=== PATIENT | female | born 1980 | race Caucasian/White ===

== ENCOUNTER 2023-02-09 12:59 | Outpatient (OUT) | payer OTHER, SELFPAY ==
--- NOTE | 2023-02-09 13:09 | US_ITS ---
[place] [id number] Patient Name: BRYON BROCK MRN: [id number] date: 1980 Sex: F Assigned Patient Location: US Current Patient Location: US Accession/Order Number: [id number] Exam Date: 02/09/2023 13:30 Report Date: 02/09/2023 15:14 At the request of: MAREN ORTZI Procedure: US venous doppler LE LT EXAMINATION: US venous doppler LE LT HISTORY: Left leg pain M79.605 COMPARISON: No relevant comparison available. TECHNIQUE: Grayscale, color and Doppler FINDINGS: Region: Left leg Thrombus: None Flow: Normal Augmentation: Normal Compressibility: Normal IMPRESSION: No deep or superficial vein thrombus identified in the left leg *Exam performed in accordance with [facility] practice guidelines- Peripheral venous ultrasound, November 13, 2009. Electronically authenticated by: CODY MCNEIL Date: 02/09/2023 15:14
== END 2023-02-09 13:00 | disposition home or self-care (01) ==
PROVIDERS: PCP Family Medicine; Visit Provider Family Medicine
DX: M79.605 Pain in left leg (principal)
CPT/HCPCS: 93971

== ENCOUNTER 2023-02-28 12:41 | Outpatient (OUT) | payer OTHER, SELFPAY ==
--- NOTE | 2023-02-28 | VEIN_ITS ---
Patient: BRYON BROCK Exam Date: 02/28/2023 : 1980 Gender:F Ordering : DR Maulik James . Admission #: [id number] Family : Order #: [id number] CLICK HERE TO VIEW EXAM RADIOLOGY REPORT PROCEDURE: VC EXT VENOUS REFLUX MATILDA LMTD COMPARISON: None. INDICATIONS: Pain due to varicose veins of bilateral legs I83.813 TECHNIQUE: Duplex imaging of the lower extremity to assess the deep and superficial venous system for the presence of deep or superficial venous incompetence and to document the location and severity of disease. The study includes evaluation of the great saphenous vein (GSV), anterior accessory saphenous vein (AASV) and small saphenous vein (SSV). Patient scanned in reverse Trendelenburg and standing. FINDINGS: RIGHT LOWER EXTREMITY: Saphenofemoral Junction Reflux: Yes 6.9mm 1.8 sec GSV: Diam (mm) Reflux/ Time (sec) Proximal Thigh 6.1 Yes 1.9 Mid Thigh 3.2 Yes 1.5 Distal Thigh 3.7 Yes 0.6 Prox Calf 3.9 Yes 0.9 Mid Calf 3.2 Yes 0.4 Saphenopopliteal Junction Reflux: 3.6mm Yes 1.4 SSV: Proximal Calf 4.5 Yes 0.3 Mid Calf 3.0 Yes 3.8 AASV: Proximal Thigh 5.9 Yes 1.9 Mid Thigh 4.0 Yes 0.6 Distal Thigh Thrombi: Partial thrombus in receptionist doctor's office distal medial lower leg. Compressibility: Partial compression of distal lower leg receptionist doctor's office. Flow: Severe deep venous reflux in popliteal vein. Preforator: Distal medial lower leg 9.5 mm with 0.7s reflux. Tech Note: SSV becomes tortuous mid calf. Incompetent varicose vein mid medial lower leg measures 5.2 mm with 1.6s reflux. Distal medial thigh varicose vein measures 4.0 mm with 0.5s reflux. Varicosity distal anterior thigh measures 3.3 mm with 0.5s reflux. LEFT LOWER EXTREMITY: Saphenofemoral Junction Reflux: Yes 9.1 mm 1.3 sec GSV: Diam (mm) Reflux/Time (sec) Proximal Thigh 5.8 Yes 0.8 Mid Thigh 4.9 Yes 0.4 Distal Thigh 4.2 Yes 0.7 Prox Calf 2.5 Yes 0.4 Mid Calf 3.8 Yes 0.6 Saphenopopliteal Junction Relux: 5.5 mm Yes 3.9 SSV: Proximal Calf 3.7 Yes 0.3 Mid Calf 3.0 Yes 0.3 AASV: Proximal Thigh 4.7 Yes 0.3 Mid Thigh 3.4 Yes 0.6 Distal Thigh Thrombi: No acute or chronic thrombus. Compressibility: Normal. Flow: Severe deep venous reflux in popliteal vein. Automotive Exhaust Emissions Technician: Mid calf connects SSV and gastroc vein measures 4.2 mm, 0.5s reflux. Mid medial lower leg 4.0 mm, 1.5s reflux. Dist/med ankle near wound 3.7mm, 3.1s. Tech Note: Duplicated GSV, #1 runs more medial than GSV #2. AASV arises from GSV #2. Incompetent varicose vein medial ankle 3.5 mm with 0.8s reflux. Varicosity in popliteal fossa measures 2.6 mm without reflux. Proximal medial/anterior lower leg varicose vein measures 2.2 mm with 0.4s reflux. CONCLUSION: 1. Dilated, incompetent right great saphenous vein through, right anterior accessory saphenous vein, and dilated incompetent branch saphenous varicosities. 2. Dilated, incompetent left great saphenous vein (duplicated GSV with 1 branch incompetent in 1 branch patent ). Incompetent receptionist doctor's office veins distal left lower extremity adjacent skin ulcer. Multiple incompetent varicosities. Dictated by: Jonathon Wyatt M.D. on 02/28/2023 at 14:23 Approved by: Jonathon Wyatt M.D. on 02/28/2023 at 16:43
--- NOTE | 2023-02-28 12:50 | VEIN_ITS ---
Patient: BRYON BROCK Exam Date: 02/28/2023 : 1980 Gender:F Ordering : DR MAREN ORTIZ . Admission #: [id number] Family : Order #: [id number] CLICK HERE TO VIEW EXAM RADIOLOGY REPORT PROCEDURE: VC FACILITY EST COMPREHENSIVE VEIN CENTER - OFFICE VISIT INITIAL COMPARISON: VC EXT VENOUS REFLUX MATIDLA LMTD, 02/28/2023. PROGRESS NOTES: [age] year old female who presents with a 16 year history of lower extremity pain, aching, burning, bulging veins, swelling, cramping. The patient's left leg symptoms are worse than the right. There has been a progression of symptoms over time. This increases with prolonged like dependency. The patient describes an improvement with rest, elevation, exercise, and support stockings. The patient denies any signs and symptoms to suggest arterial ischemia. The patient describes a family history varicose veins on paternal side. The patient has drinking and smoking history of occasional alcohol consumption; no tobacco use. Patient has a past medical history significant for deep vein thrombus within left leg after 1st . See separate history and physical for medication list. No prior treatment for varicose or spider veins. Current use of compression stockings. After review of nurse notes, history and physical exam I discussed at length the pathophysiology of venous hypertension and possible treatments, therapies and strategies available. We discussed at length the importance of elevating the lower extremities above the level of the heart, increased physical activity and compression stocking use. Ultrasound venous reflux study performed on same day was discussed at length with the patient. The report demonstrates dilated, incompetent great saphenous veins bilaterally, right anterior accessory saphenous vein, incompetent printing machine mechanic vein within lower left leg deep to skin wound, and multiple incompetent branch saphenous varicosities bilaterally. PHYSICAL EXAM: The right leg demonstrates multiple varicosities, scattered spider veins, no ulceration, mild edema, no skin discoloration. The left leg demonstrates several varicosities, scattered spider veins, medial lower leg ulceration, mild edema, no skin discoloration. Both thighs, legs and feet were symmetrically warm to the touch. Good posterior tibial and dorsalis pedis pulses were present bilaterally. VEIN/VC Facility EST Comprehensive IMPRESSION: 1. Bilateral lower extremity venous insufficiency 2. Bilateral lower extremity varicose veins 3. Mild bilateral lower extremity subcutaneous edema 4. No flow significant arterial disease 5. CEAP: C3, EC, AP, PA PLAN: 1. Continued use of compression stockings 2. Elevated legs and increased physical activity symptomatic relief 3. Endovenous laser ablation of left great saphenous (duplicated vein with 1 patent and 1 incompetent), right great saphenous, left printing machine mechanic vein, and right anterior accessory saphenous vein. 4. Microfoam chemical ablation of incompetent branch saphenous varicosities bilaterally. 5. Sclerotherapy as needed. Nurse notes, history and physical were reviewed and confirmed, see attached forms. The nurse was present throughout the physical exam and consultation Dictated by: Jonathon Wyatt M.D. on 03/01/2023 at 08:22 Approved by: Jonathon Wyatt M.D. on 03/01/2023 at 09:14
== END 2023-02-28 12:42 | disposition home or self-care (01) ==
PROVIDERS: PCP Family Medicine; Visit Provider Family Medicine
DX: I83.813 Varicose veins of bilateral lower extremities with pain (principal); R60.0 Localized edema
CPT/HCPCS: 93970; G0463

== ENCOUNTER 2023-03-26 16:10 | Outpatient (OUT) | payer OTHER, SELFPAY ==
[2023-03-26 16:39] LABS: Hematocrit 37.6 % (36.0-48.0); Hemoglobin 12.3 g/dL (12.0-16.0); Mean Corpuscular HGB Conc 32.7 g/dL (29.9-35.2); Mean Corpuscular Hemoglobin 28.9 pg (26.7-34.0); Mean Corpuscular Volume 88.5 fL (81.0-99.0); Mean Platelet Volume 12.8 fL (9.5-13.5); Platelet Count 126 10^3/uL (150-450); Red Blood Count 4.25 10^6/uL (4.20-5.40); Red Cell Distribution Width 13.3 % (11.0-15.0); White Blood Count 11.2 10^3/uL (4.0-11.0)
[2023-03-26 16:55] LABS: Creatinine Urine Random <13.00 mg/dL (20.00-300.00); Total Protein Urine Random <6.0 mg/dL (<=11.9)
[2023-03-26 17:19] LABS: Alanine Aminotransferase 15 U/L (14-59); Albumin Globulin Ratio 1.2; Alkaline Phosphatase 38 U/L (46-116); Anion Gap 13.8; Aspartate Amino Transferase 12 U/L (15-37); BUN Creatinine Ratio 14.6; Bilirubin Total 0.3 mg/dL (0.2-1.0); Calcium 8.8 mg/dL (8.5-10.1); Carbon Dioxide 24.1 mmol/L (21.0-32.0); Chloride 105 mmol/L (98-107); Estimated GFR (African America 29 (>=60); Estimated GFR (Non-African Ame 24 (>=60); Globulin 3.3 g/dL; Glucose 94 mg/dL (74-106); Phosphorus 4.4 mg/dL (2.6-4.7); Potassium 3.9 mmol/L (3.5-5.1); Sodium 139 mmol/L (136-145); Total Protein 7.3 g/dL (6.4-8.2)
[2023-03-28 11:09] LABS: PTH, Intact 51 pg/mL (15-65)
== END 2023-03-26 16:11 | disposition home or self-care (01) ==
PROVIDERS: PCP Family Medicine; Visit Provider Internal Medicine Nephrology
DX: Q61.3 Polycystic kidney, unspecified (principal)
CPT/HCPCS: 36415; 80053; 82570; 83970; 84100; 84156; 85027

== ENCOUNTER 2023-04-04 13:18 | Outpatient (OUT) | payer OTHER, SELFPAY ==
--- NOTE | 2023-04-04 13:20 | VEIN_ITS ---
[address] [address] Patient Name: BRYON BROCK MRN: [id number] date: 1980 Sex: F Assigned Patient Location: Current Patient Location: Accession/Order Number: [id number] Exam Date: 04/04/2023 13:30 Report Date: 04/04/2023 15:13 At the request of: CODY MCNEIL Procedure: VC Endovenous Ablation 1VeinRT EXAMINATION: VC Endovenous Ablation 1Vein right great saphenous vein HISTORY: I83.813 Pain due to varicose veins of bilateral leg veins COMPARISON: No relevant comparison available. TECHNIQUE: The risks and benefits of the procedure had been previously discussed, and were rediscussed at length. Informed written consent was obtained. Jocelin Daley and Hermilo Haines assisted. Time out procedure was performed. The right lower extremity was prepared and draped in the usual sterile fashion to allow knee flexion in the sterile field. Duplex ultrasound probe was draped in a sterile cover, sterile transmission gel was used. Venous mapping was performed with the areas of dilation and large tributaries marked. The total length was 40 cm from the entry upper to mid calf to 3 cm below the saphenofemoral junction. The diameter of the greater saphenous vein ranged from 4-9 mm. A 30 gauge needle and 1% buffered lidocaine was used to anesthetize the entry site. A 4 mm incision was made with a scalpel and the saphenous vein was entered percutaneously under direct ultrasound guidance with a micropuncture set, a single stick was successful in gaining access. A micro-guide wire was inserted and the needle removed. A micro-set including a dilator was inserted over the microwire and the needle and dilator were removed. A 0.018 guide wire was inserted through the micro-set and threaded through the saphenous vein to the saphenofemoral junction. The dilator was removed and an introducer sheath was inserted over the wire until the end of the sheath entered the saphenofemoral junction. The dilator and wire were removed and the 600 micron fiber was introduced and placed and positioned so that it extended beyond the sheath and was 3 cm peripheral to the saphenofemoral femoral junction. Final position of the fiber was determined by ultrasound guidance and duplex imaging. Tumescent anesthetic was delivered by ultrasound guidance. 225 cc of fluid was delivered along the entire course of the saphenous vein. The solution consisted of 1000 cc of normal saline with 40 mL of 1% lidocaine and 20 mL of sodium bicarbonate. A final positioning check was made. The energy source was turned on by means of the foot pedal and the fiber and sheath were withdrawn. The total number of Joules delivered was 1761. The laser was active for 220 seconds under continuous pulse, average laser use of 8 J. Laser start time 3:02 PM 04/04/2023 . Laser stop time 3:06 PM 06/04/2023 . A duplex ultrasound revealed compressibility and flow at the saphenofemoral junction immediately after the procedure. Hemostasis at the access site was achieved. The skin incision of the saphenous vein was closed with a 4 x 4. A compression stocking was applied. Postop instructions were given. A follow up appointment was recommended and scheduled. The patient tolerated the procedure well and was discharged in good condition . VEIN/VC Endovenous Ablation 1VeinRT IMPRESSION: Technically successful endovenous laser ablation right great saphenous vein Electronically authenticated by: CODY MCNEIL Date: 04/04/2023 15:13
[2023-04-04] MEDS: 0.9 % SODIUM CHLORIDE 500 ML, LIDOCAINE HCL 20 ML, SODIUM BICARBONATE 10 MEQ INJ (13:46)
== END 2023-04-04 13:19 | disposition home or self-care (01) ==
LOC: VC 13:19
PROVIDERS: PCP Family Medicine; Visit Provider Radiology Diagnostic Radiology
DX: I83.813 Varicose veins of bilateral lower extremities with pain (principal)
CPT/HCPCS: 36478

== ENCOUNTER 2023-04-09 13:46 | Outpatient (OUT) | payer OTHER, SELFPAY ==
--- NOTE | 2023-04-09 | VEIN_ITS ---
Patient: BRYON BROCK Exam Date: 04/09/2023 : 1980 Gender:F Ordering : DR CODY MCNEIL M.D. Admission #: [id number] Family : Order #: [id number] CLICK HERE TO VIEW EXAM RADIOLOGY REPORT PROCEDURE: FACILITY EST LMTD VEIN CENTER - OFFICE VISIT FOLLOW UP COMPARISON: None. PROGRESS NOTES: The patient reports improvement in leg symptoms. There has been interval reduction in varicosities. The patient has followed our recommendations to walk 20-30 minutes once or twice per day since the procedure. Physical exam demonstrates decrease in varicosities of the leg. Persistent varicosities are identified along the legs bilaterally. Review of the ultrasound performed the same day demonstrates occlusive thrombus extending throughout the treated vein(s), see separate report, consistent with a successful ablation. No thrombus extending into or beyond the saphenofemoral junction. The patient expressed a desire to proceed with treatment of remaining incompetent varicosities.. The patient was informed that treatment was a process and would require additional procedures/sessions. VEIN/ Facility EST LMTD IMPRESSION: 1. Successful ablation of the right great saphenous vein(s). 2. Persistent dilated, incompetent band salvager veins deep to distal medial lower left leg reoccurring wound. PLAN: Endovenous laser ablation of distal lower left leg band salvager veins at site of reoccurring wound. Nurse notes, history and physical were reviewed and confirmed, see attached forms. The nurse was present throughout the physical exam and consultation Dictated by: Jonathon Wyatt M.D. on 04/09/2023 at 15:50 Approved by: Jonathon Wyatt M.D. on 04/09/2023 at 15:58
--- NOTE | 2023-04-09 | VEIN_ITS ---
Patient: BRYON BROCK Exam Date: 04/09/2023 : 1980 Gender:F Ordering : DR CODY MCNEIL M.D. Admission #: [id number] Family : Order #: [id number] CLICK HERE TO VIEW EXAM RADIOLOGY REPORT PROCEDURE: VC EXT VENOUS RT LMTD COMPARISON: None. INDICATIONS: I80.01 Phlebitis of superficial veins of rt lower extremity TECHNIQUE: Lower extremity selby scale and Duplex Doppler evaluation of the deep venous system from the inguinal ligament through the calf veins. FINDINGS: REGION: Right lower extremity. THROMBI: Negative for DVT. Heat induced thrombus in right GSV 2.3 cm from SFJ and extends to medial knee. COMPRESSIBILITY: Non-compressible segments. FLOW: Areas of no flow. OTHER: CONCLUSION: 1. Successful post ablation occlusion of right great saphenous vein. Dictated by: Jonathon Wyatt M.D. on 04/09/2023 at 14:56 Approved by: Jonathon Wyatt M.D. on 04/09/2023 at 15:50
== END 2023-04-09 13:47 | disposition home or self-care (01) ==
LOC: VC 13:47
PROVIDERS: PCP Radiology Diagnostic Radiology; Visit Provider Radiology Diagnostic Radiology
DX: I80.01 Phlebitis and thrombophlebitis of superficial vessels of right lower extremity (principal)
CPT/HCPCS: 93971; G0463

== ENCOUNTER 2023-04-26 12:47 | Outpatient (OUT) | payer OTHER, SELFPAY ==
--- NOTE | 2023-04-26 12:55 | VEIN_ITS ---
[address] [address] Patient Name: BRYON BROCK MRN: [id number] date: 1980 Sex: F Assigned Patient Location: Current Patient Location: Accession/Order Number: [id number] Exam Date: 04/26/2023 13:00 Report Date: 04/26/2023 14:27 At the request of: CODY MCNEIL Procedure: VC Endovenous Perf Ablation LT EXAMINATION: VC Endovenous Perf Ablation LT COMPARISON: INDICATIONS: Pain due to varicose veins of bilateral legs I83.813 OPERATIVE REPORT: Diagnosis: Superficial venous reflux, incompetent perforating veins Procedure: Endovenous laser ablation of the left plan coordinator(s) Procedure: The patient was positioned supine on the table and the leg was prepped and draped to allow for visualization during venous access. A sterile cover was draped over a 16 mhz ultrasound probe. Venous mapping was performed prior to the procedure noting location and size of vessel(s). Superintendent Service vein 1: Medial left ankle. The diameter of the vein ranged from 5 mm's below the muscular fascia to 6 mm's at the entry point. This vein was immediately subjacent to an active venous stasis ulceration Using a 30 gauge needle the entry site was anesthetized with 2 cc of 1% buffered lidocaine. Access was gained percutaneously, with a 21-gauge needle, into the plan coordinator vein under ultrasound guidance. The needle was advanced into the desired position and the pre-measured 400-micron fiber was then inserted into the needle and locked in place. The position of the fiber was imaged with ultrasound guidance. The fiber tip was visualized to be 15 mm from the deep vessel. An anesthetic solution of 5 cc 1% buffered lidocaine was delivered along the course of the vein under ultrasound guidance using a syringe. A final positioning check of the laser fiber tip was performed. The laser was activated by means of a foot-pedal and the fiber and needle were withdrawn together in accordance to the desired joules per treatment area/spot weld. 4 areas/spot welds were performed, and the total number of joules delivered was 193. The total time of energy delivery was 24 seconds. A duplex ultrasound revealed compressibility and flow of the deep system immediately after the procedure. Hemostasis of the access site was achieved and dressed. Superintendent Service vein 2: Medial left mid to distal calf. The diameter of the vein ranged from 3 mm's below the muscular fascia to 3.5 mm's at the entry point. Using a 30 gauge needle the entry site was anesthetized with 2 cc of 1% buffered lidocaine. Access was gained percutaneously, with a 21-gauge needle, into the plan coordinator vein under ultrasound guidance. The needle was advanced into the desired position and the pre-measured 400-micron fiber was then inserted into the needle and locked in place. The position of the fiber was imaged with ultrasound guidance. The fiber tip was visualized to be 30 mm from the deep vessel. An anesthetic solution of 4 cc 1% buffered lidocaine was delivered along the course of the vein under ultrasound guidance using a syringe. A final positioning check of the laser fiber tip was performed. The laser was activated by means of a foot-pedal and the fiber and needle were withdrawn together in accordance to the desired joules per treatment area/spot weld. 2 areas/spot welds were performed, and the total number of joules delivered was 44. The total time of energy delivery was 6 seconds. A duplex ultrasound revealed compressibility and flow of the deep system immediately after the procedure. Hemostasis of the access site was achieved and dressed. A 20-30 mm compression stocking over coban was placed on the treated leg. Post-Op instructions were given, and a follow-up appointment was made. CONCLUSION: 1. Technically successful endovenous laser ablation of 2 incompetent left leg plan coordinator veins Electronically authenticated by: CODY MCNEIL Date: 04/26/2023 14:27
[2023-04-26] MEDS: LIDOCAINE HCL 20 ML, SODIUM BICARBONATE 2 MEQ INJ (13:07)
== END 2023-04-26 12:48 | disposition home or self-care (01) ==
LOC: VC 12:47
PROVIDERS: PCP Radiology Diagnostic Radiology; Visit Provider Radiology Diagnostic Radiology
DX: I83.813 Varicose veins of bilateral lower extremities with pain (principal)
CPT/HCPCS: 36478

== ENCOUNTER 2023-05-10 11:30 | Outpatient (OUT) | payer OTHER, SELFPAY ==
--- NOTE | 2023-05-10 | VEIN_ITS ---
Patient: BRYON BROCK Exam Date: 05/10/2023 : 1980 Gender:F Ordering : DR CODY MCNEIL M.D. Admission #: [id number] Family : Order #: [id number] CLICK HERE TO VIEW EXAM RADIOLOGY REPORT PROCEDURE: VC EXT VENOUS LT LIMITED COMPARISON: None. INDICATIONS: Phlebitis of superficial veins of lt lower extremity I80.02 TECHNIQUE: Lower extremity selby scale and Duplex Doppler evaluation of the deep venous system from the inguinal ligament through the calf veins. FINDINGS: REGION: Left lower extremity. THROMBI: Negative for DVT. Heat induced thrombus visualized at distal/medial service porter. COMPRESSIBILITY: Non-compressible segments. FLOW: Areas of no flow. OTHER: CONCLUSION: 1. Successful post ablation occlusion of distal medial left lower extremity service porter vein. Dictated by: Jonathon Wyatt M.D. on 05/10/2023 at 12:09 Approved by: Jonathon Wyatt M.D. on 05/10/2023 at 12:10
--- NOTE | 2023-05-10 | VEIN_ITS ---
Patient: BRYON BROCK Exam Date: 05/10/2023 : 1980 Gender:F Ordering : DR CODY MCNEIL M.D. Admission #: [id number] Family : Order #: [id number] CLICK HERE TO VIEW EXAM RADIOLOGY REPORT PROCEDURE: [facility] EST LMTD VEIN CENTER - OFFICE VISIT FOLLOW UP COMPARISON: [facility], 04/09/2023. PROGRESS NOTES: The patient reports improvement in leg symptoms. There has been interval reduction in varicosities. The patient has followed our recommendations to walk 20-30 minutes once or twice per day since the procedure. Physical exam demonstrates decrease in varicosities of the leg. Persistent varicosities are identified along the legs bilaterally. Review of the ultrasound performed the same day demonstrates occlusive thrombus extending throughout the treated vein(s), see separate report, consistent with a successful ablation. No thrombus extending into or beyond the saphenofemoral junction. The patient expressed a desire to proceed with treatment of remaining common varicosities. The patient was informed that treatment was a process and would require several procedures/sessions. VEIN/[facility] EST TD IMPRESSION: 1. Successful ablation of the distal left lower extremity manager cash vein. 2. Persistent incompetent varicose veins and lower extremity symptoms. PLAN: Microfoam chemical ablation of bilateral incompetent branch saphenous varicosities. Nurse notes, history and physical were reviewed and confirmed, see attached forms. The nurse was present throughout the physical exam and consultation Dictated by: Jonathon Wyatt M.D. on 05/10/2023 at 12:10 Approved by: Jonathon Wyatt M.D. on 05/10/2023 at 12:14
== END 2023-05-10 11:31 | disposition home or self-care (01) ==
LOC: VC 11:30
PROVIDERS: PCP Radiology Diagnostic Radiology; Visit Provider Radiology Diagnostic Radiology
DX: I80.02 Phlebitis and thrombophlebitis of superficial vessels of left lower extremity (principal)
CPT/HCPCS: 93971; G0463

== ENCOUNTER 2023-05-24 12:51 | Outpatient (OUT) | payer OTHER, SELFPAY ==
--- NOTE | 2023-05-24 12:52 | VEIN_ITS ---
The [address] [address] Patient Name: BRYON BROCK MRN: [id number] date: 1980 Sex: F Assigned Patient Location: Current Patient Location: Accession/Order Number: [id number] Exam Date: 05/24/2023 13:00 Report Date: 05/24/2023 13:52 At the request of: CODY MCNEIL Procedure: VC INJ Foam Sclerosant WUS DOCK ATTENDANT PROCEDURE: VC INJ Foam Sclerosant WUS M right leg COMPARISON: None. HISTORY: I83.813 Painful varicose veins of bilat lower extremities Pre-operative Diagnosis: CEAP class C6 venous insufficiency with pain, tenderness, edema and incompetent right great saphenous and varicose vein(s), chronic venous insufficiency right leg secondary to venous incompetence Post-operative Diagnosis: CEAP class C6 venous insufficiency with pain, tenderness, edema and incompetent right great saphenous and varicose vein(s), chronic venous insufficiency right leg secondary to venous incompetence Procedure Performed: 1. Ultrasound-guided microfoam chemical ablation with Varithenaregistered 2. Intraoperative ultrasound guidance Anesthesia: None Indications for Procedure: 42-year-old female who presents with a long history of lower extremity pain and swelling, bleeding and a venous stasis ulceration. The patient failed conservative medical therapy including medical compression stockings, exercise and analgesics. Prior procedures include endovenous laser ablation. Multiple incompetent varicosities of the right leg. Duplex scan showed reflux and enlarged diameters up to 7 mm. A 10 mm encounter perforating vein is identified in the distal right lower leg and the ankle however the insurance company declined treatment as there is no associated venous stasis ulceration. This was discussed with the patient. This procedure likely will not result in closure of the perforating vein which on the endovenous laser ablation. The patient underwent informed consent including management options where the complications of infection, bleeding, pain, and skin injury were discussed. Particular attention was spent discussing thrombus extension and deep vein thrombosis as well as the possibility of pulmonary embolus and treatment with oral or injectable blood thinners. Procedure: The patient walked to the procedure room. All applicable staff donned appropriate apparel. A procedure timeout was performed to confirm correct patient, correct extremity, correct procedure, and correct room set-up including presence of all applicable supplies, devices, and drugs. A duplex ultrasound, performed by myself confirmed the location and incompetence of branch saphenous varicosities and their course was marked on the skin together with the dilated tributaries. The extent of treatment of the vein and the associated varicosities was determined through ultrasound mapping. The skin was prepped and then punctured with a butterfly needle and advanced under ultrasound guidance. The Varithenaregistered canister was activated and the canister was primed and purged as required in the instructions for use. Varithenaregistered was drawn into a sterile syringe. The following injections were made: 8 cc injected into a 7 mm varicose vein distal right lower leg. The perforating vein was occluded with manual pressure total dissolution of the thumb is observed 7 cc injected into a 5 mm varicose vein distal anteromedial right thigh Varithenaregistered was slowly administered at 0.5-1.0 cc/second with close observation by ultrasound of its course in the vessels. Total volume utilized was: 15 cc. Following administration of Varithenaregistered the leg was elevated and the patient was asked to repeatedly dorsiflex the ankle to limit flow of Varithenaregistered into perforating veins. Once appropriate spasm had been confirmed in the treated veins, the vascular catheter was removed from the leg and light pressure was applied over the puncture site for hemostasis. The common femoral and deep superficial veins were then evaluated for flow and compressibility prior to dressing placement. The lower extremity was kept elevated at 45 degrees above the horizontal and cording material was applied over the saphenous segments and tributaries to allow for eccentric compression over the target vessels including the targeted saphenous vein(s). A multilayer dressing was applied consisting of foam pads, coban and thigh-high 20-30 mm Hg compression elastic support hose were placed on the patient. The leg was lowered only after compression had been applied and the patient was immediately ambulatory. The patient ambulated 10 minutes under supervision and was without apparent concerns at time of release. Post-care instructions include advising patient to keep post-treatment bandages in place and dry for 48 hours, avoid extended periods of inactivity, avoid heavy exercise for one week, wear compression stockings on the treated leg continuously for two weeks, to walk daily for 10 minutes over the next month. The patient was instructed to take an anti-inflammatory medicine as needed and to follow up for color duplex scan of the Saphenous veins, the treated branch saphenous varicosities, the adjacent deep veins, and additional treatment within 7 days. PERSONNEL: Hermilo Haines RN, Rena Maria RN Electronically authenticated by: CODY MCNEIL Date: 05/24/2023 13:52
== END 2023-05-24 12:52 | disposition home or self-care (01) ==
LOC: VC 12:51
PROVIDERS: PCP Radiology Diagnostic Radiology; Visit Provider Radiology Diagnostic Radiology
DX: I83.813 Varicose veins of bilateral lower extremities with pain (principal)
CPT/HCPCS: 36466

== ENCOUNTER 2023-06-01 11:29 | Outpatient (OUT) | payer OTHER, SELFPAY ==
--- NOTE | 2023-06-01 11:30 | VEIN_ITS ---
Patient: BRYON BROCK Exam Date: 06/01/2023 : 1980 Gender:F Ordering : DR CODY MCNEIL M.D. Admission #: [id number] Family : Order #: [id number] CLICK HERE TO VIEW EXAM RADIOLOGY REPORT PROCEDURE: [facility] EST LMTD VEIN CENTER - OFFICE VISIT FOLLOW UP COMPARISON: [facility], 05/10/2023. PROGRESS NOTES: The patient reports improvement in leg symptoms. There has been interval reduction in varicosities. The patient has followed our recommendations to walk 20-30 minutes once or twice per day since the procedure. Physical exam demonstrates decrease in varicosities of the leg. Persistent varicosities are identified along the left leg. Review of the ultrasound performed the same day demonstrates occlusive thrombus extending throughout the treated vein(s), see separate report, consistent with a successful ablation. No thrombus extending into or beyond the saphenofemoral junction. The patient expressed a desire to proceed with treatment of left leg varicosities. The patient was informed that treatment was a process and would require several procedures/sessions. VEIN/[facility] EST LMTD IMPRESSION: 1. Successful ablation of the remaining right lower extremity branch saphenous varicosities. 2. Persistent left leg varicose veins and lower extremity symptoms. PLAN: Microfoam chemical ablation of left leg branch saphenous varicosities. Nurse notes, history and physical were reviewed and confirmed, see attached forms. The nurse was present throughout the physical exam and consultation Dictated by: Jonathon Wyatt M.D. on 06/01/2023 at 11:53 Approved by: Jonathon Wyatt M.D. on 06/01/2023 at 11:54
--- NOTE | 2023-06-01 11:30 | VEIN_ITS ---
Patient: BRYON BROCK Exam Date: 06/01/2023 : 1980 Gender:F Ordering : DR CODY MCNEIL M.D. Admission #: [id number] Family : Order #: [id number] CLICK HERE TO VIEW EXAM RADIOLOGY REPORT PROCEDURE: VC EXT VENOUS RT LMTD COMPARISON: VC EXT VENOUS RT LMTD, 04/09/2023. INDICATIONS: I80.01 Phlebitis of superficial veins of rt lower extremity TECHNIQUE: Lower extremity selby scale and Duplex Doppler evaluation of the deep venous system from the inguinal ligament through the calf veins. FINDINGS: REGION: Right lower extremity. THROMBI: Negative for DVT. Varithena induced thrombus visualized at dist/med calf, prox/med calf, and dist/med thigh. COMPRESSIBILITY: Non-compressible segments. FLOW: Areas of no flow. OTHER: Small varicose veins remain measuring under 2 mm. CONCLUSION: 1. Successful post ablation occlusion of treated right lower extremity branch saphenous varicosities. No remaining treatable varicosities within the right leg. 2. Dictated by: Jonathon Wyatt M.D. on 06/01/2023 at 11:52 Approved by: Jonathon Wyatt M.D. on 06/01/2023 at 11:53
== END 2023-06-01 11:30 | disposition home or self-care (01) ==
LOC: VC 11:30
PROVIDERS: PCP Radiology Diagnostic Radiology; Visit Provider Radiology Diagnostic Radiology
DX: I80.01 Phlebitis and thrombophlebitis of superficial vessels of right lower extremity (principal)
CPT/HCPCS: 93971; G0463

== ENCOUNTER 2023-06-12 11:24 | Outpatient (OUT) | payer OTHER, SELFPAY ==
--- NOTE | 2023-06-12 | VEIN_ITS ---
The [address] [address] Patient Name: BRYON BROCK MRN: [id number] date: 1980 Sex: F Assigned Patient Location: Current Patient Location: Accession/Order Number: [id number] Exam Date: 06/12/2023 11:35 Report Date: 06/12/2023 14:45 At the request of: CODY MCNEIL Procedure: VC INJ Foam Sclerosant WUS HOSPICE CARE TRANSITIONS COORDINATOR PROCEDURE: VC INJ Foam Sclerosant WUS HOSPICE CARE TRANSITIONS COORDINATOR HISTORY: Painful Varicose Veins I83.813 Pre-operative Diagnosis: CEAP class C3 venous insufficiency with pain, tenderness, edema and incompetent branch saphenous vein(s), chronic venous insufficiency left leg secondary to venous incompetence Post-operative Diagnosis: CEAP class C3 venous insufficiency with pain, tenderness, edema and incompetent branch saphenous vein(s), chronic venous insufficiency left leg secondary to venous incompetence Procedure Performed: 1. Ultrasound-guided microfoam chemical ablation with Varithenaregistered 2. Intraoperative ultrasound guidance Physician: Jonathon Wyatt M.D. Anesthesia: None Indications for Procedure: 42 year old female. Symptoms including dilated bulging veins, lower extremity pain and swelling for many years despite conservative medical therapy including medical compression stockings, exercise and analgesics. Prior procedures include endovenous laser ablation and microfoam chemical ablation. Multiple incompetent varicosities of the left leg. Duplex scan showed reflux and enlarged diameters up to 4 mm. The patient underwent informed consent including management options where the complications of infection, bleeding, pain, and skin injury were discussed. Particular attention was spent discussing thrombus extension and deep vein thrombosis as well as the possibility of pulmonary embolus and treatment with oral or injectable blood thinners. Procedure: The patient walked to the procedure room. All applicable staff donned appropriate apparel. A procedure timeout was performed to confirm correct patient, correct extremity, correct procedure, and correct room set-up including presence of all applicable supplies, devices, and drugs. A duplex ultrasound, performed by myself confirmed the location and incompetence of branch saphenous varicosities and their course was marked on the skin together with the dilated tributaries. The extent of treatment of the vein and the associated varicosities was determined through ultrasound mapping. The skin was prepped and then punctured with a butterfly needle and advanced under ultrasound guidance. The Varithenaregistered canister was activated and the canister was primed and purged as required in the instructions for use. Varithenaregistered was drawn into a sterile syringe. Varithenaregistered was slowly administered at 0.5-1.0 cc/second with close observation by ultrasound of its course in the vessels. Total volume utilized was: 9 mL intravenous 4 mm varicosity within the anterior distal lower leg. Following administration of Varithenaregistered the leg was elevated and the patient was asked to repeatedly dorsiflex the ankle to limit flow of Varithenaregistered into perforating veins. Once appropriate spasm had been confirmed in the treated veins, the vascular catheter was removed from the leg and light pressure was applied over the puncture site for hemostasis. The common femoral and deep superficial veins were then evaluated for flow and compressibility prior to dressing placement. The lower extremity was kept elevated at 45 degrees above the horizontal and cording material was applied over the saphenous segments and tributaries to allow for eccentric compression over the target vessels including the targeted saphenous vein(s). A multilayer dressing was applied consisting of foam pads, coban and thigh-high 20-30 mm Hg compression elastic support hose were placed on the patient. The leg was lowered only after compression had been applied and the patient was immediately ambulatory. The patient ambulated 10 minutes under supervision and was without apparent concerns at time of release. Post-care instructions include advising patient to keep post-treatment bandages in place and dry for 48 hours, avoid extended periods of inactivity, avoid heavy exercise for one week, wear compression stockings on the treated leg continuously for two weeks, to walk daily for 10 minutes over the next month. The patient was instructed to take an anti-inflammatory medicine as needed and to follow up for color duplex scan of the Saphenous veins, the treated branch saphenous varicosities, the adjacent deep veins, and additional treatment within 7 days. PERSONNEL: Hermilo Haines RN Electronically authenticated by: JONATHON WYATT Date: 06/12/2023 14:45
== END 2023-06-12 11:25 | disposition home or self-care (01) ==
LOC: VC 11:25
PROVIDERS: PCP Radiology Diagnostic Radiology; Visit Provider Radiology Diagnostic Radiology
DX: I83.813 Varicose veins of bilateral lower extremities with pain (principal)
CPT/HCPCS: 36466

== ENCOUNTER 2023-06-18 13:26 | Outpatient (OUT) | payer OTHER, SELFPAY ==
--- NOTE | 2023-06-18 | VEIN_ITS ---
Patient: BRYON BROCK Exam Date: 06/18/2023 : 1980 Gender:F Ordering : DR CODY MCNEIL M.D. Admission #: [id number] Family : Order #: [id number] CLICK HERE TO VIEW EXAM RADIOLOGY REPORT PROCEDURE: VC EXT VENOUS LT LIMITED COMPARISON: VC EXT VENOUS LT LIMITED, 05/10/2023. INDICATIONS: Phlebitis of superficial veins of lt lower extremity I80.02 TECHNIQUE: Lower extremity selby scale and Duplex Doppler evaluation of the deep venous system from the inguinal ligament through the calf veins. FINDINGS: REGION: Left lower extremity. THROMBI: Negative for DVT. COMPRESSIBILITY: Non-compressible segments corresponding to thrombus FLOW: Areas of no flow corresponding to thrombus OTHER: Patent varicose vein visualized on mid anterior thigh measures 4.4 mm with 0.8s of reflux. CONCLUSION: 1. Successful post ablation occlusion of treated branch saphenous varicosities. 2. Persistent long segment dilating incompetent varicose vein within the thigh. Dictated by: Jonathon Wyatt M.D. on 06/18/2023 at 14:45 Approved by: Jonathon Wyatt M.D. on 06/18/2023 at 14:46
--- NOTE | 2023-06-18 | VEIN_ITS ---
Patient: BRYON BROCK Exam Date: 06/18/2023 : 1980 Gender:F Ordering : DR CODY MCNEIL M.D. Admission #: [id number] Family : Order #: [id number] CLICK HERE TO VIEW EXAM RADIOLOGY REPORT PROCEDURE: [facility] EST LMTD VEIN CENTER - OFFICE VISIT FOLLOW UP COMPARISON: [facility], 06/01/2023. PROGRESS NOTES: The patient reports improvement in leg symptoms. There has been interval reduction in varicosities. The patient has followed our recommendations to walk 20-30 minutes once or twice per day since the procedure. Physical exam demonstrates decrease in varicosities of the leg. Persistent incompetent dilated left thigh varicose vein. Review of the ultrasound performed the same day demonstrates occlusive thrombus extending throughout the treated vein(s), see separate report, consistent with a successful ablation. No thrombus extending into or beyond the saphenofemoral junction. Persistent abnormally dilated incompetent long segment of vein within left thigh. The patient expressed a desire to proceed with treatment of remaining left thigh incompetent varicosity. The patient was informed that treatment was a process and would require 1 procedures/sessions. VEIN/[facility] EST TD IMPRESSION: 1. Successful ablation of the treated branch saphenous vein(s). 2. Persistent left thigh varicose vein. PLAN: Microfoam chemical ablation of remaining incompetent varicosities within left leg. Nurse notes, history and physical were reviewed and confirmed, see attached forms. The nurse was present throughout the physical exam and consultation Dictated by: Jonathon Wyatt M.D. on 06/18/2023 at 14:46 Approved by: Jonathon Wyatt M.D. on 06/18/2023 at 14:48
== END 2023-06-18 13:27 | disposition home or self-care (01) ==
LOC: VC 13:26
PROVIDERS: PCP Radiology Diagnostic Radiology; Visit Provider Radiology Diagnostic Radiology
DX: I80.02 Phlebitis and thrombophlebitis of superficial vessels of left lower extremity (principal)
CPT/HCPCS: 93971; G0463

== ENCOUNTER 2023-06-22 15:46 | Outpatient (OUT) | payer OTHER, SELFPAY ==
[2023-06-22 15:58] LABS: Hematocrit 36.9 % (36.0-48.0); Hemoglobin 11.6 g/dL (12.0-16.0); Mean Corpuscular HGB Conc 31.4 g/dL (29.9-35.2); Mean Corpuscular Hemoglobin 28.8 pg (26.7-34.0); Mean Corpuscular Volume 91.6 fL (81.0-99.0); Mean Platelet Volume 11.9 fL (9.5-13.5); Platelet Count 163 10^3/uL (150-450); Red Blood Count 4.03 10^6/uL (4.20-5.40); White Blood Count 10.5 10^3/uL (4.0-11.0)
[2023-06-22 16:26] LABS: Alanine Aminotransferase 14 U/L (14-59); Albumin Globulin Ratio 1.1; Albumin Level 3.8 g/dL (3.4-5.0); Alkaline Phosphatase 40 U/L (46-116); Anion Gap 12.4; Aspartate Amino Transferase 12 U/L (15-37); Bilirubin Total 0.4 mg/dL (0.2-1.0); Calcium 9.1 mg/dL (8.5-10.1); Carbon Dioxide 25.8 mmol/L (21.0-32.0); Chloride 101 mmol/L (98-107); Estimated GFR (African America 31 (>=60); Estimated GFR (Non-African Ame 25 (>=60); Globulin 3.6 g/dL; Glucose 87 mg/dL (74-106); Potassium 4.2 mmol/L (3.5-5.1); Sodium 135 mmol/L (136-145); Total Protein 7.4 g/dL (6.4-8.2)
== END 2023-06-22 15:47 | disposition home or self-care (01) ==
LOC: LAB 15:47
PROVIDERS: PCP Family Medicine; Visit Provider Internal Medicine Nephrology
DX: Q61.3 Polycystic kidney, unspecified (principal); N18.4 Chronic kidney disease, stage 4 (severe)
CPT/HCPCS: 36415; 80053; 85027

== ENCOUNTER 2023-07-02 15:10 | Outpatient (OUT) | payer OTHER, SELFPAY ==
--- NOTE | 2023-07-02 15:11 | VEIN_ITS ---
The [address] [address] Patient Name: BRYON BROCK MRN: [id number] date: 1980 Sex: F Assigned Patient Location: Current Patient Location: Accession/Order Number: [id number] Exam Date: 07/02/2023 15:10 Report Date: 07/02/2023 16:28 At the request of: CODY MCNEIL Procedure: VC INJ Foam Sclerosant WUS DATA MODELING SPECIALIST PROCEDURE: VC INJ Foam Sclerosant WUS DATA MODELING SPECIALIST HISTORY: Pain due to varicose veins of bilateral legs I83.813 Pre-operative Diagnosis: CEAP class C3 venous insufficiency with pain, tenderness, edema and incompetent branch saphenous vein(s), chronic venous insufficiency left leg secondary to venous incompetence Post-operative Diagnosis: CEAP class C3 venous insufficiency with pain, tenderness, edema and incompetent branch saphenous vein(s), chronic venous insufficiency left leg secondary to venous incompetence Procedure Performed: 1. Ultrasound-guided microfoam chemical ablation with Varithenaregistered 2. Intraoperative ultrasound guidance Physician: Jonathon Wyatt M.D. Anesthesia: None Indications for Procedure: 42 year old female. Symptoms including lower extremity pain, swelling, dilated bulging veins for many years despite conservative medical therapy including medical compression stockings, exercise and analgesics. Prior procedures include endovenous laser ablation and microfoam chemical ablation. Multiple incompetent varicosities of the left leg. Duplex scan showed reflux and enlarged diameters up to 4 mm. The patient underwent informed consent including management options where the complications of infection, bleeding, pain, and skin injury were discussed. Particular attention was spent discussing thrombus extension and deep vein thrombosis as well as the possibility of pulmonary embolus and treatment with oral or injectable blood thinners. Procedure: The patient walked to the procedure room. All applicable staff donned appropriate apparel. A procedure timeout was performed to confirm correct patient, correct extremity, correct procedure, and correct room set-up including presence of all applicable supplies, devices, and drugs. A duplex ultrasound, performed by myself confirmed the location and incompetence of branch saphenous varicosities and their course was marked on the skin together with the dilated tributaries. The extent of treatment of the vein and the associated varicosities was determined through ultrasound mapping. The skin was prepped and then punctured with a butterfly needle and advanced under ultrasound guidance. The Varithenaregistered canister was activated and the canister was primed and purged as required in the instructions for use. Varithenaregistered was drawn into a sterile syringe. Varithenaregistered was slowly administered at 0.5-1.0 cc/second with close observation by ultrasound of its course in the vessels. Total volume utilized was: 10 mL (6 mL into a 4 mm varicosity of the distal anterior thigh; 4 mL into a 4 mm varicosity of the mid anterior thigh). Following administration of Varithenaregistered the leg was elevated and the patient was asked to repeatedly dorsiflex the ankle to limit flow of Varithenaregistered into perforating veins. Once appropriate spasm had been confirmed in the treated veins, the vascular catheter was removed from the leg and light pressure was applied over the puncture site for hemostasis. The common femoral and deep superficial veins were then evaluated for flow and compressibility prior to dressing placement. The lower extremity was kept elevated at 45 degrees above the horizontal and cording material was applied over the saphenous segments and tributaries to allow for eccentric compression over the target vessels including the targeted saphenous vein(s). A multilayer dressing was applied consisting of foam pads, coban and thigh-high 20-30 mm Hg compression elastic support hose were placed on the patient. The leg was lowered only after compression had been applied and the patient was immediately ambulatory. The patient ambulated 10 minutes under supervision and was without apparent concerns at time of release. Post-care instructions include advising patient to keep post-treatment bandages in place and dry for 48 hours, avoid extended periods of inactivity, avoid heavy exercise for one week, wear compression stockings on the treated leg continuously for two weeks, to walk daily for 10 minutes over the next month. The patient was instructed to take an anti-inflammatory medicine as needed and to follow up for color duplex scan of the Saphenous veins, the treated branch saphenous varicosities, the adjacent deep veins, and additional treatment within 7 days. PERSONNEL: Hermilo Haines RN Electronically authenticated by: JONATHON WYATT Date: 07/02/2023 16:28
== END 2023-07-02 15:11 | disposition home or self-care (01) ==
LOC: VC 15:10
PROVIDERS: PCP Family Medicine; Visit Provider Radiology Diagnostic Radiology
DX: I83.813 Varicose veins of bilateral lower extremities with pain (principal)
CPT/HCPCS: 36466

== ENCOUNTER 2023-07-11 09:27 | Outpatient (OUT) | payer OTHER, SELFPAY ==
--- NOTE | 2023-07-11 09:29 | VEIN_ITS ---
Patient Name: BRYON BROCK MR#: [id number] : 1980 Exam Date: 07/11/2023 Ordering Doctor: DR CODY MCNEIL M.D. RADIOLOGY REPORT PROCEDURE: VC EXT VENOUS LT LIMITED COMPARISON: VC EXT VENOUS LT LIMITED, 06/18/2023. INDICATIONS: I80.02 Phlebitis of superficial veins of lt lower extremity TECHNIQUE: Lower extremity selby scale and Duplex Doppler evaluation of the deep venous system from the inguinal ligament through the calf veins. FINDINGS: REGION: Left lower extremity. THROMBI: Negative for DVT. Varithena induced thrombus visualized at mid/ant thigh and dist/ant thigh. COMPRESSIBILITY: Non-compressible segments corresponding to thrombus FLOW: Areas of no flow corresponding to thrombus OTHER: No patent varicose veins remain. CONCLUSION: 1. Six vessel post ablation occlusion of left leg treated branch saphenous varicosities. Dictated by: Jonathon Wyatt M.D. on 07/11/2023 at 10:55 Approved by: Jonathon Wyatt M.D. on 07/11/2023 at 10:56
--- NOTE | 2023-07-11 09:29 | VEIN_ITS ---
Patient Name: BRYON BROCK MR#: [id number] : 1980 Exam Date: 07/11/2023 Ordering Doctor: DR CODY MCNEIL M.D. RADIOLOGY REPORT PROCEDURE: [facility] EST LMTD VEIN CENTER - OFFICE VISIT FOLLOW UP COMPARISON: [facility], 06/18/2023. PROGRESS NOTES: The patient reports improvement in leg symptoms. There has been interval reduction in varicosities. The patient has followed our recommendations to walk 20-30 minutes once or twice per day since the procedure. Physical exam demonstrates decrease in varicosities of the leg. Persistent spider veins are identified along the legs bilaterally. Review of the ultrasound performed the same day demonstrates occlusive thrombus extending throughout the treated vein(s), see separate report, consistent with a successful ablation. No thrombus extending into or beyond the saphenofemoral junction. The patient expressed a desire to proceed with treatment of spider veins. The patient was informed that treatment was a process and would require approximately 1 procedures[facility]sessions. [facility]: 1. Successful ablation of the left lower extremity treated branch saphenous vein(s). 2. Persistent spider veins. Near complete resolution of lower extremity symptoms. PLAN: Bilateral lower extremity sclerotherapy for treatment of spider veins. Nurse notes, history and physical were reviewed and confirmed, see attached forms. The nurse was present throughout the physical exam and consultation Dictated by: Jonathon Wyatt M.D. on 07/11/2023 at 10:57 Approved by: Jonathon Wyatt M.D. on 07/11/2023 at 10:58
--- OUTSIDE RECORDS SUMMARY | 2023-08-07 23:15 | XMS_ITS | CCD ---
Author Name Unknown Address [address] [place] [address] Organization [facility] Care Team Providers Care [employer] Name Role Phone Maeve Moreno Unavailable DR MAEVE MORENO Admitting Unavailable TIFFANIE, DR BEAL Consulting Unavailable DR MAREN GONZALEZ Primary Care Unavailable TIFFANIE, DR BEAL Attending Unavailable TIFFANIE, DR BEAL Consulting Unavailable DR MAEVE MORENO Attending Unavailable DR MAEVE MORENO Admitting Unavailable DR MAREN GONZALEZ Primary Care Unavailable TIFFANIE, DR BEAL Consulting Unavailable TIFFANIE, DR BEAL Attending Unavailable DR MAREN GONZALEZ Primary Care Unavailable TIFFANIE, DR BEAL Admitting Unavailable TIFFANIE, DR BEAL Consulting Unavailable TIFFANIE, DR BEAL Attending Unavailable DR MAREN GONZALEZ Primary Care Unavailable TIFFANIE, DR BEAL Admitting Unavailable TIFFANIE, DR BEAL Consulting Unavailable TIFFANIE, DR BEAL Attending Unavailable DR MAREN GONZALEZ Primary Care Unavailable TIFFANIE, DR BEAL Admitting Unavailable DR MAREN GONZALEZ Consulting Unavailable DR MAREN GONZALEZ Attending Unavailable ANGEL .DR ENGEL Admitting Unavailable ANGEL .DR ENGEL Primary Care Unavailable ANGEL .DR ENGEL Consulting Unavailable ANGEL .DR ENGEL Attending Unavailable ANGEL .DR ENGEL Admitting Unavailable DR MAREN GONZALEZ Primary Care Unavailable DR JONATHON WYATT Consulting Unavailable DR MAEVE MORENO Consulting Unavailable DR MAEVE MORENO Attending Unavailable ANGEL .DR ENGEL Primary Care Unavailable TIFFANIE, DR BEAL Admitting Unavailable TIFFANIE, DR BEAL Consulting Unavailable DR MAEVE MORENO Attending Unavailable DR MAREN GONZALEZ Primary Care Unavailable DR MAEVE MORENO Admitting Unavailable TIFFANIE, DR BEAL Admitting Unavailable DR MAEVE MORENO Consulting Unavailable DR MAREN GONZALEZ Primary Care Unavailable DR MAEVE MORENO Attending Unavailable Allergies Allergy Classification Reported Allergen(s) Allergy Type Date of Onset Reaction(s) Facility (19 sources) Sulfonamides (Antibiotic) Propensity to adverse reactions rash [place] Other Medications Current Medications Medication Drug Class(es) Dates Sig (Normalized) Sig (Original) cetirizine hydrochloride 10 mg oral tablet (20 sources) Histamine-1 Receptor Antagonist take 1 tablet by mouth once daily ZyrTEC Allergy 10 MG 1 tablet on the tongue and allow to dissolve Orally Once a day Active rivaroxaban 20 mg oral tablet (20 sources) Factor Xa Inhibitor take 1 tablet by mouth every twenty-four hours Xarelto 20 MG 1 tablet with food Orally Once a day Active Completed/Discontinued Medications Medication Drug Class(es) Dates Sig (Normalized) Sig (Original) {28 (tolvaptan 30 MG Oral Tablet [Jynarque]) / 28 (tolvaptan 90 MG Oral Tablet [Jynarque]) } Pack [Jynarque 90/30 Carton] (20 sources) Vasopressin V2 Receptor Antagonist Start: 03-28-2023 Jynarque 90 & 30 MG TAKE ONE 90 MG TABLET BY MOUTH UPON WAKING AND TAKE 30 MG TABLET 8 HOURS LATER Orally bid for 14 days Mar, Not-Taking Start: 09-14-2021 End: 10-05-2021 Jynarque 90 & 30 MG 90 mg QA M and 30 mg QPM Orally Twice a day for 14 days Aug, Sep, Active take 1 tablet by alejandro th every eight hours Jynarque 90 & 30 MG TAKE ONE 90 MG TABLET BY MOUTH UPON WAKING AND TAKE 30 MG TABLET 8 HOURS LATER Active Jynarque 90 & 30 MG TAKE ONE 90 MG TABLET BY MOUTH UPON WAKING AND TAKE 30 MG TABLET 8 HOURS LATER Orally bid for 90 days Active Jynarque 90 & 30 MG TAKE ONE 90 MG TABLET BY MOUTH UPON WAKING AND TAKE 30 MG TABLET 8 HOURS LATER Orally bid for 14 days Active Jynarque 90 & 30 MG TAKE ONE 90MG TABLET BY MOUTH UPON WAKING AND TAKE 30 MG TABLET 8 HOURS LATER Orally Once a day for 90 day(s) Active take 1 tablet by alejandro th every eight hours Jynarque 90 & 30 MG TAKE ONE 90MG TABLET BY MOUTH UPON WAKING, AND THEN ONE 30MG TABLET 8 HOURS LATER for 90 days Active take 1 tablet by alejandro th every eight hours Jynarque 90 & 30 MG TAKE ONE 90MG TABLET BY MOUTH UPON WAKING, AND THEN ONE 30MG TABLET 8 HOURS LATER for 28 Active Jynarque 90 & 30 MG as directed Orally Active Jynarque 60 & 30 MG TAKE ONE 60MG TABLET BY MOUTH UPON WAKING, AND TAKE ONE 30MG TABLET BY MOUTH 8 HOURS LATER orally bid for 28 day(s) Not-Taking Jynarque 90 & 30 MG 90 mg QAM and 30 mg QPM Orally Twice a day for 90 day(s) Active Jynarque 60 & 30 MG TAKE ONE 60MG TABLET BY MOUTH UPON WAKING, AND TAKE ONE 30MG TABLET BY MOUTH 8 HOURS LATER orally bid for 28 day(s) Active Triamcinolone (17 sources) Corticosteroid Start: 03-23-2020 KENALOG - 10 m g Mar, 40 mg Problems Active Problems Problem Classification Problem Date Documented Da te Episodic/Chronic Chronic kidney disease (20 sources) Chronic kidney disease stage 2; Translations: [Chronic kidney disease, stage 2 (mild)] Onset: 08-09-2021 Resolved: 03-23-2022 Chronic Coagulation and hemorrhagic disorders (20 sources) Factor V Leiden mutation; Translations: [Activated protein C resistance] Onset: 08-09-2021 Resolved: 03-23-2022 Chronic Genitourinary congenital anomalies (20 sources) Multiple congenital cysts of kidney; Translations: [Polycystic kidney, unspecified] Onset: 08-09-2021 Resolved: 03-23-2022 Chronic Other circulatory disease (4 sources) Elevated blood-pressure reading, without diagnosis of hypertension Episodic Other screening for suspected conditions (not mental disorders or infectious disease) (4 sources) Encounter for screening mammogram for malignant neoplasm of breast; Translations: [ENC SCR MAMMO MALIG NEOPLASM BREAST] Onset: 11-14-2022 Episodic Residual codes; unclassified (1 source) Family history of malignant neoplasm, unspecified; Translations: [FAM HX MALIGNANT NEOPLASM UNS] Onset: 11-20-2022 Episodic Past or Other Problems Problem Classification Problem Date Documented Da te Episodic/Chronic Acute and unspecified renal failure (2 sources) Acute kidney failure, unspecified; Translations: [ACUTE KIDNEY FAILURE UNSPECIFIED] Onset: 08-09-2021 Resolved: 08-09-2021 Episodic Headache; including migraine (1 source) Headache Onset: 08-09-2021 Resolved: 08-09-2021 Episodic Results Test Name Value Interpretation Reference Range Facil ity PTH INTACTon 12-15-2022 PTH, Intact 65 pg/mL Normal 15-65 [facility] Comment on above: Performed By: #### L IPID, CMP, TSH, T7 #### [facility] [address] [address] [address] Jessica Mosqueda HEMOGRAM AND PLATELon 2022 Hematocrit (Bld) [Volume fraction] 41.0 % Normal 3 6.0-48.0 [facility] Comment on above: Performed By: #### H H #### [facility] [address] [place] [address] Dr. Jessica Mosqueda Hemoglobin (Bld) [Mass/Vol] 13.0 g/dL Normal 12.0-16. 0 [facility] Comment on above: Performed By: #### H H #### [facility] [address] [place] [address] Dr. Jessica Mosqueda MCH (RBC) [Entitic mass] 28.6 pg Normal 26.7-34.0 [facility] Comment on above: Performed By: #### H H #### [facility] [address] [place] [address] Dr. Jessica Mosqueda MCHC (RBC) [Mass/Vol] 31.7 g/dL Normal 29.9-35.2 [facility] Comment on above: Performed By: #### H H #### [facility] [address] [place] [address] Dr. Jessica Mosqueda MCV (RBC) [Entitic vol] 90.3 fL Normal 81.0-99.0 [facility] Comment on above: Performed By: #### H H #### [facility] [address] [place] [address] Dr. Jessica Mosqueda PLT 133 103/ul Critically low 150-450 [facility] Comment on above: Performed By: #### H H #### [facility] [address] [place] [address] Dr. Jessica Mosqueda RBC 4.54 106/ul Normal 4.20-5.40 [facility] Comment on above: Performed By: #### H H #### [facility] [address] [place] [address] Dr. Jessica Mosqueda WBC 9.0 103/ul Normal 4.0-11.0 [facility] Comment on above: Performed By: #### H H #### [facility] [address] [place] [address] Dr. Jessica Mosqueda PHOSPHORUSon 12-13-2022 Phosphate [Mass/Vol] 4.3 mg/dL Normal 2.6-4.7 [facility] Comment on above: Performed By: #### P THINT #### [facility] [address] [place] [address] Dr. Jessica Mosqueda PROF 14(COMP METB)on 023 Albumin [Mass/Vol] 3.8 g/dL Normal 3.4-5.0 [facility] Comment on above: Performed By: #### P THINT #### [facility] [address] [place] [address] Dr. Jessica Mosqueda Albumin/Globulin [Mass ratio] 1.1 {ratio} Normal [facility] Comment on above: Performed By: #### P THINT #### [facility] [address] [place] [address] Dr. Jessica Mosqueda ALP [Catalytic activity/Vol] 36 U/L Critically low 46- [address] [facility] Comment on above: Performed By: #### P THINT #### [facility] [address] [place] [address] Dr. Jessica Mosqueda ALT [Catalytic activity/Vol] 14 U/L Normal 14-59 [facility] Comment on above: Performed By: #### P THINT #### [facility] [address] [place] [address] Dr. Jessica Mosqueda Anion gap [Moles/Vol] 11.9 mmol/L Normal [facility] Comment on above: Performed By: #### P THINT #### [facility] [address] [place] [address] Dr. Jessica Mosqueda AST [Catalytic activity/Vol] 13 U/L Critically low 15- 37 [facility] Comment on above: Performed By: #### P THINT #### [facility] [address] [address] [address] Jessica Mosqueda Bilirubin [Mass/Vol] 0.3 mg/dL Normal 0.2-1.0 [facility] Comment on above: Performed By: #### P THINT #### [facility] [address] [address] [address] Jessica Mosqueda Calcium [Mass/Vol] 9.0 mg/dL Normal 8.5-10.1 [facility] Comment on above: Performed By: #### P THINT #### [facility] [address] [address] [address] Jessica Mosqueda Chloride [Moles/Vol] 107 mmol/L Normal 98-107 [facility] Comment on above: Performed By: #### P THINT #### [facility] [address] [address] [address] Jessica Mosqueda CO2 [Moles/Vol] 28.1 mmol/L Normal 21.0-32.0 [facility] Comment on above: Performed By: #### P THINT #### [facility] [address] [address] [address] Jessica Mosqueda Creatinine [Mass/Vol] 2.10 mg/dL Critically high 0.55-1.02 [facility] Comment on above: Performed By: #### P THINT #### [facility] [address] [address] [address] Jessica Mosqueda EGFR-AF AZERBAIJANI 31 mL/min/1.73m2 Critically low >=60 [facility] Comment on above: Performed By: #### P THINT #### [facility] [address] [address] [address] Jessica Mosqueda EGFR-NON AF AZERBAIJANI 26 mL/min/1.73m2 Critically low >=60 [facility] Comment on above: Performed By: #### P THINT #### [facility] [address] [address] [address] Jessica Mosqueda Globulin (S) [Mass/Vol] 3.6 g/dL Normal [facility] Comment on above: Performed By: #### P THINT #### [facility] [address] [place] [address] Dr. Jessica Mosqueda Glucose [Mass/Vol] 82 mg/dL Normal 74-106 [facility] Comment on above: Performed By: #### P THINT #### [facility] [address] [address] [address] Jessica Mosqueda Potassium [Moles/Vol] 4.0 mmol/L Normal 3.5-5.1 [facility] Comment on above: Performed By: #### P THINT #### [facility] [address] [place] [address] Dr. Jessica Mosqueda Protein [Mass/Vol] 7.4 g/dL Normal 6.4-8.2 [facility] Comment on above: Performed By: #### P THINT #### [facility] [address] [place] [address] Dr. Jessica Mosqueda Sodium [Moles/Vol] 143 mmol/L Normal 136-145 [facility] Comment on above: Performed By: #### P THINT #### [facility] [address] [place] [address] Dr. Jessica Mosqueda Urea nitrogen [Mass/Vol] 23.0 mg/dL Critically high 7.0-18 .0 [facility] Comment on above: Performed By: #### P THINT #### [facility] [address] [place] [address] Dr. Jessica Mosqueda Urea nitrogen/Creatinine [Mass ratio] 11.0 mg/mg Normal [facility] Comment on above: Performed By: #### P THINT #### [facility] [address] [place] [address] Dr. Jessica Mosqueda MG MAMM SCREEN 3D MATILDA CADon 11-14-2022 MG MAMM SCREEN 3D MATILDA CAD Patient: ISABEL RIVERA Exam Date: 11/14/2022 : 1980 Gender:F Ordering : DR MAREN JAMES . Admission #: [id number] Family : Order #: [id number] CLICK HERE TO VIEW EXAM RADIOLOGY REPORT PROCEDURE: MAMMOGRAM SCREENING 3D BILATERAL CAD COMPARISON: MG MAMM SCREEN MATILDA W CAD, 07/24/2017. INDICATIONS: Screening mammography Calculator Name NCI Breast Cancer Risk Assessment Tool 5 Year Breast Cancer Risk 0.40% Lifetime Breast Cancer Risk 7.30% Personal Breast Cancer No Personal Ovarian Cancer No Treatments None Family Cancers Aunt-maternal with unknown cancer at age 50. LOCATION: [facility] BREAST COMPOSITION: Extremely dense, which lowers the sensitivity of mammography. FINDINGS: DIAGNOSTIC CATEGORY 1--NEGATIVE. RIGHT BREAST: No significant suspicious finding. No significant change has occurred. LEFT BREAST: No significant suspicious finding. No significant change has occurred. RECOMMENDATIONS: ROUTINE MAMMOGRAM AND CLINICAL EVALUATION IN 12 MONTHS. PLEASE NOTE: A NORMAL MAMMOGRAM DOES NOT EXCLUDE THE POSSIBILITY OF BREAST CANCER. A CLINICALLY SUSPICIOUS PALPABLE LUMP SHOULD BE BIOPSIED. Dictated by: Jontahon Wyatt M.D. on 11/15/2022 at 07:43 Approved by: Jonathon Wyatt M.D. on 11/15/2022 at 07:51 Normal [facility] INSULINon 11-11-2022 Insulin 7.2 uIU/mL Normal 2.6-24.9 [facility] Comment on above: Performed By: #### I NSULIN #### [facility] [address] [address] [address] Jessica Mosqueda CBC AUTO DIFFon 11-10-2022 BASO # 0.0 103/ul Normal 0.0-0.1 [facility] Comment on above: Performed By: #### L IPID, CMP, TSH, T7 #### [facility] [address] [address] [address] Jessica Mosqueda Basophils/100 WBC (Bld) 0.5 % Normal 0.2-2.0 [facility] Comment on above: Performed By: #### L IPID, CMP, TSH, T7 #### [facility] [address] [address] [address] Jessica Mosqueda EO # 0.3 103/ul Normal 0.0-0.7 [facility] Comment on above: Performed By: #### L IPID, CMP, TSH, T7 #### [facility] [address] [place] [address] Dr. Jessica Mosqueda Eosinophils/100 WBC (Bld) 3.6 % Normal 0.9-7.[address] [facility] Comment on above: Performed By: #### L IPID, CMP, TSH, T7 #### [facility] [address] [place] [address] Dr. Jessica Mosqueda Erythrocyte distribution wid th (RBC) [Ratio] 13.2 % Normal 11.0-15.0 The [facility] Comment on above: Performed By: #### L IPID, CMP, TSH, T7 #### [facility] [address] [place] [address] Dr. Jessica Mosqueda Hematocrit (Bld) [Volume fraction] 41.9 % Normal 3 6.0-48.[address] [facility] Comment on above: Performed By: #### L IPID, CMP, TSH, T7 #### [facility] [address] [place] [address] Dr. Jessica Mosqueda Hemoglobin (Bld) [Mass/Vol] 13.3 g/dL Normal 12.0-16. [address] [facility] Comment on above: Performed By: #### L IPID, CMP, TSH, T7 #### [facility] [address] [place] [address] Dr. Jessica Mosqueda IG # 0.02 10e3/ul Normal 0.00-0.[address] [facility] Comment on above: Performed By: #### L IPID, CMP, TSH, T7 #### [facility] [address] [place] [address] Dr. Jessica Mosqueda IG % 0.3 % Normal 0.0-0.5 [facility] Comment on above: Performed By: #### L IPID, CMP, TSH, T7 #### [facility] [address] [place] [address] Dr. Jessica Mosqueda LYMPH # 2.2 103/ul Normal 1.2-3.8 [facility] Comment on above: Performed By: #### L IPID, CMP, TSH, T7 #### [facility] [address] [place] [address] Dr. Jessica Mosqueda Lymphocytes/100 WBC (Bld) 29.6 % Normal 20.5-60.0 [facility] Comment on above: Performed By: #### L IPID, CMP, TSH, T7 #### [facility] [address] [place] [address] Dr. Jessica Mosqueda MANUAL DIFF REQ NO Normal [facility] Comment on above: Performed By: #### L IPID, CMP, TSH, T7 #### [facility] [address] [place] [address] Dr. Jessica Mosqueda MCH (RBC) [Entitic mass] 28.9 pg Normal 26.7-34.0 [facility] Comment on above: Performed By: #### L IPID, CMP, TSH, T7 #### [facility] [address] [place] [address] Dr. Jessica Mosqueda MCHC (RBC) [Mass/Vol] 31.7 g/dL Normal 29.9-35.2 [facility] Comment on above: Performed By: #### L IPID, CMP, TSH, T7 #### [facility] [address] [place] [address] Dr. Jessica Mosqueda MCV (RBC) [Entitic vol] 91.1 fL Normal 81.0-99.0 [facility] Comment on above: Performed By: #### L IPID, CMP, TSH, T7 #### [facility] [address] [place] [address] Dr. Jessica Mosqudea MONO # 0.5 103/ul Normal 0.3-0.8 [facility] Comment on above: Performed By: #### L IPID, CMP, TSH, T7 #### [facility] [address] [place] [address] Dr. Jessica Mosqueda Monocytes/100 WBC (Bld) 6.1 % Normal 1.7-12.0 [facility] Comment on above: Performed By: #### L IPID, CMP, TSH, T7 #### [facility] [address] [place] [address] Dr. Jessica Mosqueda NEUT # 4.4 103/ul Normal 1.4-6.5 [facility] Comment on above: Performed By: #### L IPID, CMP, TSH, T7 #### [facility] [address] [place] [address] Dr. Jessica Mosqueda Neutrophils/100 WBC (Bld) 59.9 % Normal 43.0-75.[address] [facility] Comment on above: Performed By: #### L IPID, CMP, TSH, T7 #### [facility] [address] [place] [address] Dr. Jessica Mosqueda Platelet mean volume (Bld) [ Entitic vol] 12.5 fL Normal 9.5-13.5 [facility] Comment on above: Performed By: #### L IPID, CMP, TSH, T7 #### [facility] [address] [place] [address] Dr. Jessica Mosqueda PLT 157 103/ul Normal 150-450 [facility] Comment on above: Performed By: #### L IPID, CMP, TSH, T7 #### [facility] [address] [place] [address] Dr. Jessica Mosqueda RBC 4.60 106/ul Normal 4.20-5.[address] [facility] Comment on above: Performed By: #### L IPID, CMP, TSH, T7 #### [facility] [address] [place] [address] Dr. Jessica Mosqueda WBC 7.3 103/ul Normal 4.0-11.0 [facility] Comment on above: Performed By: #### L IPID, CMP, TSH, T7 #### [facility] [address] [place] [address] Dr. Jessica Mosqueda FREE THYROXINE INDEX T7on FTI 2.51 Normal 1.30-4.50 [facility] Comment on above: Performed By: #### L IPID, CMP, TSH, T7 #### [facility] [address] [address] [address] Jessica Mosqueda T3U 38.0 % Normal 30.0-39.0 [facility] Comment on above: Performed By: #### L IPID, CMP, TSH, T7 #### [facility] [address] [address] [address] Jessica Mosqueda T4 [Mass/Vol] 6.60 ug/dL Normal 4.80-13.90 [facility] Comment on above: Performed By: #### L IPID, CMP, TSH, T7 #### [facility] [address] [address] [address] Jessica Mosqueda GLYCOHEMOGLOBIN A1Con 2022 ADA RECOMMENDATION SEE BELOW Normal [facility] Comment on above: Result Comment: ADA RECOMMENDED LIMIT 4.0 - 6.0 ADA THERAPEUTIC TARGET < 7.0 ACTION SUGGESTED > 7.0 Performed By: #### P THINT #### [facility] [address] [address] [address] Jessica Mosqueda Glucose [Mass/Vol] 111 mg/dL Normal [facility] Comment on above: Performed By: #### P THINT #### [facility] [address] [address] [address] Jessica Mosqueda HbA1c (Bld) [Mass fraction] 5.5 % Normal 4.5-6.2 [facility] Comment on above: Performed By: #### P THINT #### [facility] [address] [address] [address] Jessica Mosqueda IRONon 11-10-2022 Iron [Mass/Vol] 58.0 ug/dL Normal 50.0-170.0 [facility] Comment on above: Performed By: #### P THINT #### [facility] [address] [place] [address] Dr. Jessica Mosqueda LIPID PROFILEon 11-10-2022 CHOL-HDL RATIO NORM SEE BELOW Normal [facility] Comment on above: Result Comment: 3.3 - 4.4 LOW RISK 4.4 - 7.1 AVERAGE RISK 7.1 - 11.0 MODERATE RISK >11.0 HIGH RISK Performed By: #### L IPID, CMP, TSH, T7 #### [facility] [address] [address] [address] Jessica Mosqueda Cholesterol [Mass/Vol] 205 mg/dL Critically high <=200 [facility] Comment on above: Performed By: #### L IPID, CMP, TSH, T7 #### [facility] [address] [address] [address] Jessica Mosqueda Cholesterol in HDL [Mass/Vol] 60 mg/dL Normal 40-60 [facility] Comment on above: Performed By: #### L IPID, CMP, TSH, T7 #### [facility] [address] [address] [address] Jessica Mosqueda Cholesterol in LDL [Mass/Vol] 127.4 mg/dL Normal [facility] Comment on above: Performed By: #### L IPID, CMP, TSH, T7 #### [facility] [address] [address] [address] Jessica Mosqueda Cholesterol.total/Cholestero l in HDL [Mass ratio] 3.4 {ratio} Normal [facility] Comment on above: Performed By: #### L IPID, CMP, TSH, T7 #### [facility] [address] [address] [address] Jessica Mosqueda HDL NORMAL > or = 60 mg/dl - LO W CARDIOVASCULAR RISK <40 mg/dl - HIGH CARDIOVASCULAR RISK Normal [facility] Comment on above: Performed By: #### L IPID, CMP, TSH, T7 #### [facility] [address] [address] [address] Jessica Mosqueda LDL CALC NORMAL SEE BELOW Normal [facility] Comment on above: Result Comment: <100 mg/dl OPTIMAL 100 - 129 mg/dl NEAR OR ABOVE OPTIMAL 130 - 159 mg/dl BORDERLINE HIGH 160 - 189 mg/dl HIGH >190 mg/dl VERY HIGH Performed By: #### L IPID, CMP, TSH, T7 #### [facility] [address] [address] [address] Jessica Mosqueda Triglyceride [Mass/Vol] 88 mg/dL Normal <=150 [facility] Comment on above: Performed By: #### L IPID, CMP, TSH, T7 #### [facility] [address] [address] [address] Jessica Mosqueda VLDL CALC 17.6 mg/dL Normal [facility] Comment on above: Performed By: #### L IPID, CMP, TSH, T7 #### [facility] [address] [address] [address] Jessica Mosqueda PROF 14(COMP METB)on 023 Albumin [Mass/Vol] 3.8 g/dL Normal 3.4-5.0 [facility] Comment on above: Performed By: #### L IPID, CMP, TSH, T7 #### [facility] [address] [address] [address] Jessica Mosqueda Albumin/Globulin [Mass ratio] 1.1 {ratio} Normal [facility] Comment on above: Performed By: #### L IPID, CMP, TSH, T7 #### [facility] [address] [address] [address] Jessica Mosqueda ALP [Catalytic activity/Vol] 37 U/L Critically low 46- 116 [facility] Comment on above: Performed By: #### L IPID, CMP, TSH, T7 #### [facility] [address] [address] [address] Jessica Mosqueda ALT [Catalytic activity/Vol] 16 U/L Normal 14-59 [facility] Comment on above: Performed By: #### L IPID, CMP, TSH, T7 #### [facility] [address] [address] [address] Jessica Mosqueda Anion gap [Moles/Vol] 13.7 mmol/L Normal [facility] Comment on above: Performed By: #### L IPID, CMP, TSH, T7 #### [facility] [address] [place] [address] Dr. Jessica Mosqueda AST [Catalytic activity/Vol] 14 U/L Critically low 15- 37 [facility] Comment on above: Performed By: #### L IPID, CMP, TSH, T7 #### [facility] [address] [address] [address] Jessica Mosqueda Bilirubin [Mass/Vol] 0.4 mg/dL Normal 0.2-1.0 [facility] Comment on above: Performed By: #### L IPID, CMP, TSH, T7 #### [facility] [address] [address] [address] Jessica Mosqueda Calcium [Mass/Vol] 9.6 mg/dL Normal 8.5-10.1 [facility] Comment on above: Performed By: #### L IPID, CMP, TSH, T7 #### [facility] [address] [place] [address] Dr. Jessica Mosqueda Chloride [Moles/Vol] 107 mmol/L Normal 98-107 [facility] Comment on above: Performed By: #### L IPID, CMP, TSH, T7 #### [facility] [address] [place] [address] Dr. Jessica Mosqueda CO2 [Moles/Vol] 27.5 mmol/L Normal 21.0-32.0 [facility] Comment on above: Performed By: #### L IPID, CMP, TSH, T7 #### [facility] [address] [place] [address] Dr. Jessica Mosqueda Creatinine [Mass/Vol] 1.74 mg/dL Critically high 0.55-1.02 [facility] Comment on above: Performed By: #### L IPID, CMP, TSH, T7 #### [facility] [address] [address] [address] Jessica Mosqueda EGFR-AF AZERBAIJANI 39 mL/min/1.73m2 Critically low >=60 [facility] Comment on above: Performed By: #### L IPID, CMP, TSH, T7 #### [facility] [address] [place] [address] Dr. Jessica Mosqueda EGFR-NON AF AZERBAIJANI 32 mL/min/1.73m2 Critically low >=60 [facility] Comment on above: Performed By: #### L IPID, CMP, TSH, T7 #### [facility] [address] [place] [address] Dr. Jessica Mosqueda Globulin (S) [Mass/Vol] 3.4 g/dL Normal [facility] Comment on above: Performed By: #### L IPID, CMP, TSH, T7 #### [facility] [address] [address] [address] Jessica Mosqueda Glucose [Mass/Vol] 95 mg/dL Normal 74-106 [facility] Comment on above: Performed By: #### L IPID, CMP, TSH, T7 #### [facility] [address] [address] [address] Jessica Mosqueda Potassium [Moles/Vol] 4.2 mmol/L Normal 3.5-5.1 [facility] Comment on above: Performed By: #### L IPID, CMP, TSH, T7 #### [facility] [address] [address] [address] Jessica Mosqueda Protein [Mass/Vol] 7.2 g/dL Normal 6.4-8.2 [facility] Comment on above: Performed By: #### L IPID, CMP, TSH, T7 #### [facility] [address] [address] [address] Jessica Mosqueda Sodium [Moles/Vol] 144 mmol/L Normal 136-145 [facility] Comment on above: Performed By: #### L IPID, CMP, TSH, T7 #### [facility] [address] [address] [address] Jessica Mosqueda Urea nitrogen [Mass/Vol] 25.0 mg/dL Critically high 7.0-18 .0 [facility] Comment on above: Performed By: #### L IPID, CMP, TSH, T7 #### [facility] [address] [address] [address] Jessica Mosqueda Urea nitrogen/Creatinine [Mass ratio] 14.4 mg/mg Normal [facility] Comment on above: Performed By: #### L IPID, CMP, TSH, T7 #### [facility] [address] [address] [address] Jessica Mosqueda TSHon 11-10-2022 TSH 1.244 uIU/mL Normal 0.358-3.740 [facility] Comment on above: Performed By: #### L IPID, CMP, TSH, T7 #### [facility] [address] [place] [address] Dr. Jessica Mosqueda PTH INTACTon 09-28-2022 PTH, Intact 43 pg/mL Normal 15-65 [facility] Comment on above: Performed By: #### L IPID, CMP, TSH, T7 #### [facility] [address] [place] [address] Dr. Jessica Mosqueda HEMOGRAM AND PLATELon 2022 Hematocrit (Bld) [Volume fraction] 39.0 % Normal 3 6.0-48.0 [facility] Comment on above: Performed By: #### H H #### [facility] [address] [place] [address] Dr. Jessica Mosqueda Hemoglobin (Bld) [Mass/Vol] 12.3 g/dL Normal 12.0-16. 0 [facility] Comment on above: Performed By: #### H H #### [facility] [address] [place] [address] Dr. Jessica Mosqueda MCH (RBC) [Entitic mass] 29.1 pg Normal 26.7-34.0 [facility] Comment on above: Performed By: #### H H #### [facility] [address] [place] [address] Dr. Jessica Mosqueda MCHC (RBC) [Mass/Vol] 31.5 g/dL Normal 29.9-35.2 [facility] Comment on above: Performed By: #### H H #### [facility] [address] [place] [address] Dr. Jessica Mosqueda MCV (RBC) [Entitic vol] 92.4 fL Normal 81.0-99.0 [facility] Comment on above: Performed By: #### H H #### [facility] [address] [place] [address] Dr. Jessica Mosqueda PLT 131 103/ul Critically low 150-450 [facility] Comment on above: Performed By: #### H H #### [facility] [address] [address] [address] Jessica Mosqueda RBC 4.22 106/ul Normal 4.20-5.40 [facility] Comment on above: Performed By: #### H H #### [facility] [address] [place] [address] Dr. Jessica Mosqueda WBC 8.6 103/ul Normal 4.0-11.0 [facility] Comment on above: Performed By: #### H H #### [facility] [address] [place] [address] Dr. Jessica Mosqueda PHOSPHORUSon 09-26-2022 Phosphate [Mass/Vol] 4.3 mg/dL Normal 2.6-4.7 [facility] Comment on above: Performed By: #### P THINT #### [facility] [address] [place] [address] Dr. Jessica Mosqueda PROF 14(COMP METB)on 023 Albumin [Mass/Vol] 3.9 g/dL Normal 3.4-5.0 [facility] Comment on above: Performed By: #### P THINT #### [facility] [address] [place] [address] Dr. Jessica Mosqueda Albumin/Globulin [Mass ratio] 1.1 {ratio} Normal [facility] Comment on above: Performed By: #### P THINT #### [facility] [address] [place] [address] Dr. Jessica Mosqueda ALP [Catalytic activity/Vol] 34 U/L Critically low 46- 116 [facility] Comment on above: Performed By: #### P THINT #### [facility] [address] [place] [address] Dr. Jessica Mosqueda ALT [Catalytic activity/Vol] 13 U/L Critically low 14- 59 [facility] Comment on above: Performed By: #### P THINT #### [facility] [address] [place] [address] Dr. Jessica Mosqueda Anion gap [Moles/Vol] 13.6 mmol/L Normal [facility] Comment on above: Performed By: #### P THINT #### [facility] [address] [address] [address] Jessica Mosqueda AST [Catalytic activity/Vol] 9 U/L Critically low 15- 37 [facility] Comment on above: Performed By: #### P THINT #### [facility] [address] [address] [address] Jessica Mosqueda Bilirubin [Mass/Vol] 0.3 mg/dL Normal 0.2-1.0 [facility] Comment on above: Performed By: #### P THINT #### [facility] [address] [address] [address] Jessica Mosqueda Calcium [Mass/Vol] 9.5 mg/dL Normal 8.5-10.1 [facility] Comment on above: Performed By: #### P THINT #### [facility] [address] [address] [address] Jessica Mosqueda Chloride [Moles/Vol] 105 mmol/L Normal 98-107 [facility] Comment on above: Performed By: #### P THINT #### [facility] [address] [address] [address] Jessica Mosqueda CO2 [Moles/Vol] 24.7 mmol/L Normal 21.0-32.0 [facility] Comment on above: Performed By: #### P THINT #### [facility] [address] [address] [address] Jessica Msoqueda Creatinine [Mass/Vol] 1.67 mg/dL Critically high 0.55-1.02 [facility] Comment on above: Performed By: #### P THINT #### [facility] [address] [address] [address] Jessica Mosqueda EGFR-AF AZERBAIJANI 41 mL/min/1.73m2 Critically low >=60 [facility] Comment on above: Performed By: #### P THINT #### [facility] [address] [address] [address] Jessica Mosqueda EGFR-NON AF AZERBAIJANI 34 mL/min/1.73m2 Critically low >=60 [facility] Comment on above: Performed By: #### P THINT #### [facility] [address] [address] [address] Jessica Mosqueda Globulin (S) [Mass/Vol] 3.5 g/dL Normal T [facility] Comment on above: Performed By: #### P THINT #### [facility] [address] [address] [address] Jessica Mosqueda Glucose [Mass/Vol] 94 mg/dL Normal 74-106 [facility] Comment on above: Performed By: #### P THINT #### [facility] [address] [address] [address] Jessica Mosqueda Potassium [Moles/Vol] 4.4 mmol/L Normal 3.5-5.1 [facility] Comment on above: Performed By: #### P THINT #### [facility] [address] [place] [address] Dr. Jessica Mosqueda Protein [Mass/Vol] 7.4 g/dL Normal 6.4-8.2 [facility] Comment on above: Performed By: #### P THINT #### [facility] [address] [address] [address] Jessica Mosqueda Sodium [Moles/Vol] 139 mmol/L Normal 136-145 [facility] Comment on above: Performed By: #### P THINT #### [facility] [address] [address] [address] Jessica Mosqueda Urea nitrogen [Mass/Vol] 29.0 mg/dL Critically high 7.0-18 .0 [facility] Comment on above: Performed By: #### P THINT #### [facility] [address] [address] [address] Jessica Mosqueda Urea nitrogen/Creatinine [Mass ratio] 17.4 mg/mg Normal [facility] Comment on above: Performed By: #### P THINT #### [facility] [address] [address] [address] Jessica Mosqueda PTH INTACTon 06-30-2022 PTH, Intact 64 pg/mL Normal 15-65 [facility] Comment on above: Performed By: #### P THINT #### [facility] [address] [place] [address] Dr. Jessica Mosqueda HEMOGRAM AND PLATELon 2021 Hematocrit (Bld) [Volume fraction] 37.5 % Normal 3 6.0-48.0 [facility] Comment on above: Performed By: #### P THINT #### [facility] [address] [place] [address] Dr. Jessica Mosqueda Hemoglobin (Bld) [Mass/Vol] 12.1 g/dL Normal 12.0-16. 0 [facility] Comment on above: Performed By: #### P THINT #### [facility] [address] [place] [address] Dr. Jessica Mosqueda MCH (RBC) [Entitic mass] 29.0 pg Normal 26.7-34.0 [facility] Comment on above: Performed By: #### P THINT #### [facility] [address] [place] [address] Dr. Jessica Mosqueda MCHC (RBC) [Mass/Vol] 32.3 g/dL Normal 29.9-35.2 [facility] Comment on above: Performed By: #### P THINT #### [facility] [address] [place] [address] Dr. Jessica Mosqueda MCV (RBC) [Entitic vol] 89.9 fL Normal 81.0-99.0 [facility] Comment on above: Performed By: #### P THINT #### [facility] [address] [place] [address] Dr. Jessica Mosqueda PLT 170 103/ul Normal 150-450 [facility] Comment on above: Performed By: #### P THINT #### [facility] [address] [place] [address] Dr. Jessica Mosqueda RBC 4.17 106/ul Critically low 4.20-5.40 [facility] Comment on above: Performed By: #### P THINT #### [facility] [address] [place] [address] Dr. Jessica Mosqueda WBC 9.4 103/ul Normal 4.0-11.0 [facility] Comment on above: Performed By: #### P THINT #### [facility] [address] [address] [address] Jessica Mosqueda PHOSPHORUSon 06-29-2022 Phosphate [Mass/Vol] 3.8 mg/dL Normal 2.6-4.7 [facility] Comment on above: Performed By: #### L IPID, CMP, TSH, T7 #### [facility] [address] [address] [address] Jessica Mosqueda PROF 14(COMP METB)on 022 Albumin [Mass/Vol] 4.0 g/dL Normal 3.4-5.0 [facility] Comment on above: Performed By: #### L IPID, CMP, TSH, T7 #### [facility] [address] [address] [address] Jessica Mosqueda Albumin/Globulin [Mass ratio] 1.2 {ratio} Normal [facility] Comment on above: Performed By: #### L IPID, CMP, TSH, T7 #### [facility] [address] [address] [address] Jessica Mosqueda ALP [Catalytic activity/Vol] 38 U/L Critically low 46- 116 [facility] Comment on above: Performed By: #### L IPID, CMP, TSH, T7 #### [facility] [address] [address] [address] Jessica Mosqueda ALT [Catalytic activity/Vol] 13 U/L Critically low 14- 59 [facility] Comment on above: Performed By: #### L IPID, CMP, TSH, T7 #### [facility] [address] [address] [address] Jessica Mosqueda Anion gap [Moles/Vol] 13.1 mmol/L Normal [facility] Comment on above: Performed By: #### L IPID, CMP, TSH, T7 #### [facility] [address] [address] [address] Jessica Mosqueda AST [Catalytic activity/Vol] 14 U/L Critically low 15- 37 [facility] Comment on above: Performed By: #### L IPID, CMP, TSH, T7 #### [facility] [address] [address] [address] Jessica Mosqueda Bilirubin [Mass/Vol] 0.4 mg/dL Normal 0.2-1.0 [facility] Comment on above: Performed By: #### L IPID, CMP, TSH, T7 #### [facility] [address] [address] [address] Jessica Mosqueda Calcium [Mass/Vol] 9.2 mg/dL Normal 8.5-10.1 [facility] Comment on above: Performed By: #### L IPID, CMP, TSH, T7 #### [facility] [address] [address] [address] Jessica Mosqueda Chloride [Moles/Vol] 104 mmol/L Normal 98-107 [facility] Comment on above: Performed By: #### L IPID, CMP, TSH, T7 #### [facility] [address] [address] [address] Jessica Mosqueda CO2 [Moles/Vol] 26.1 mmol/L Normal 21.0-32.0 [facility] Comment on above: Performed By: #### L IPID, CMP, TSH, T7 #### [facility] [address] [place] [address] Dr. Jessica Mosqueda Creatinine [Mass/Vol] 1.86 mg/dL Critically high 0.55-1.02 [facility] Comment on above: Performed By: #### L IPID, CMP, TSH, T7 #### [facility] [address] [address] [address] Jessica Mosqueda EGFR-AF AZERBAIJANI 36 mL/min/1.73m2 Critically low >=[address] [facility] Comment on above: Performed By: #### L IPID, CMP, TSH, T7 #### [facility] [address] [address] [address] Jessica Mosqueda EGFR-NON AF AZERBAIJANI 30 mL/min/1.73m2 Critically low >=[address] [facility] Comment on above: Performed By: #### L IPID, CMP, TSH, T7 #### [facility] [address] [address] [address] Jessica Mosqueda Globulin (S) [Mass/Vol] 3.4 g/dL Normal T [facility] Comment on above: Performed By: #### L IPID, CMP, TSH, T7 #### [facility] [address] [place] [address] Dr. Jessica Mosqueda Glucose [Mass/Vol] 84 mg/dL Normal 74-106 [facility] Comment on above: Performed By: #### L IPID, CMP, TSH, T7 #### [facility] [address] [place] [address] Dr. Jessica Mosqueda Potassium [Moles/Vol] 4.2 mmol/L Normal 3.5-5.1 [facility] Comment on above: Performed By: #### L IPID, CMP, TSH, T7 #### [facility] [address] [place] [address] Dr. Jessica Mosqueda Protein [Mass/Vol] 7.4 g/dL Normal 6.4-8.2 [facility] Comment on above: Performed By: #### L IPID, CMP, TSH, T7 #### [facility] [address] [place] [address] Dr. Jessica Mosqueda Sodium [Moles/Vol] 139 mmol/L Normal 136-145 [facility] Comment on above: Performed By: #### L IPID, CMP, TSH, T7 #### [facility] [address] [address] [address] Jessica Mosqueda Urea nitrogen [Mass/Vol] 26.0 mg/dL Critically high 7.0-18 .0 [facility] Comment on above: Performed By: #### L IPID, CMP, TSH, T7 #### [facility] [address] [place] [address] Dr. Jessica Mosqueda Urea nitrogen/Creatinine [Mass ratio] 14.0 mg/mg Normal [facility] Comment on above: Performed By: #### L IPID, CMP, TSH, T7 #### [facility] [address] [place], [place] [id number] Dr. Jessica Mosqueda UA RANDOMon 06-29-2022 Bilirubin Ql (U) Negative Normal NEGATIVE [facility] Comment on above: Performed By: #### L IPID, CMP, TSH, T7 #### [facility] [address] [place] [address] Dr. Jessica Mosqueda Clarity (U) CLEAR Normal CLEAR [facility] Comment on above: Performed By: #### L IPID, CMP, TSH, T7 #### [facility] [address] [address] [address] Jessica Mosqueda Color (U) LT. YELLOW Normal YELLOW [facility] Comment on above: Performed By: #### L IPID, CMP, TSH, T7 #### [facility] [address] [place] [address] Dr. Jessica Mosqueda Glucose Ql (U) Negative Normal NEGATIVE [facility] Comment on above: Performed By: #### L IPID, CMP, TSH, T7 #### [facility] [address] [place] [address] Dr. Jessica Mosqueda Hemoglobin Ql (U) Negative Normal NEGATIVE [facility] Comment on above: Performed By: #### L IPID, CMP, TSH, T7 #### [facility] [address] [place] [address] Dr. Jessica Mosqueda Ketones Ql (U) Negative Normal NEGATIVE [facility] Comment on above: Performed By: #### L IPID, CMP, TSH, T7 #### [facility] [address] [place] [address] Dr. Jessica Mosqueda LEUKOCYTES Negative Normal NEGATIVE [facility] Comment on above: Performed By: #### L IPID, CMP, TSH, T7 #### [facility] [address] [place] [address] Dr. Jessica Mosqueda Nitrite Ql (U) Negative Normal NEGATIVE [facility] Comment on above: Performed By: #### L IPID, CMP, TSH, T7 #### [facility] [address] [place] [address] Dr. Jessica Mosqueda pH (U) 6.0 [pH] Normal 5-9 [facility] Comment on above: Performed By: #### L IPID, CMP, TSH, T7 #### [facility] [address] [place] [address] Dr. Jessica Mosqueda SPEC GRAVITY <=1.005 Abnormal 1.005-<=1.025 [facility] Comment on above: Performed By: #### L IPID, CMP, TSH, T7 #### [facility] [address] [place] [address] Dr. Jessica Mosqueda UA PROTEIN Negative Normal NEGATIVE/ TRACE [facility] Comment on above: Performed By: #### L IPID, CMP, TSH, T7 #### [facility] [address] [place] [address] Dr. Jessica Mosqueda Urobilinogen Qn (U) 0.2 {Fran'U}/dL Normal 0.2 - 1. 0 [facility] Comment on above: Performed By: #### L IPID, CMP, TSH, T7 #### [facility] [address] [place] [address] Dr. Jessica Mosqueda PROF 14(COMP METB)on 022 Albumin [Mass/Vol] 3.9 g/dL Normal 3.4-5.0 [facility] Comment on above: Performed By: #### P THINT #### [facility] [address] [place] [address] Dr. Jessica Mosqueda Albumin/Globulin [Mass ratio] 1.1 {ratio} Normal [facility] Comment on above: Performed By: #### P THINT #### [facility] [address] [place] [address] Dr. Jessica Mosqueda ALP [Catalytic activity/Vol] 36 U/L Critically low 46- [address] [facility] Comment on above: Performed By: #### P THINT #### [facility] [address] [place] [address] Dr. Jessica Mosqueda ALT [Catalytic activity/Vol] 17 U/L Normal 14-59 [facility] Comment on above: Performed By: #### P THINT #### [facility] [address] [address] [address] Jessica Mosqueda Anion gap [Moles/Vol] 13.9 mmol/L Normal Th [facility] Comment on above: Performed By: #### P THINT #### [facility] [address] [address] [address] Jessica Mosqueda AST [Catalytic activity/Vol] 11 U/L Critically low 15- 37 [facility] Comment on above: Performed By: #### P THINT #### [facility] [address] [address] [address] Jessica Mosqueda Bilirubin [Mass/Vol] 0.3 mg/dL Normal 0.2-1.0 [facility] Comment on above: Performed By: #### P THINT #### [facility] [address] [address] [address] Jessica Mosqueda Calcium [Mass/Vol] 9.2 mg/dL Normal 8.5-10.1 [facility] Comment on above: Performed By: #### P THINT #### [facility] [address] [address] [address] Jessica Mosqueda Chloride [Moles/Vol] 105 mmol/L Normal 98-107 [facility] Comment on above: Performed By: #### P THINT #### [facility] [address] [address] [address] Jessica Mosqueda CO2 [Moles/Vol] 26.5 mmol/L Normal 21.0-32.0 [facility] Comment on above: Performed By: #### P THINT #### [facility] [address] [address] [address] Jessica Mosqueda Creatinine [Mass/Vol] 2.06 mg/dL Critically high 0.55-1.02 [facility] Comment on above: Performed By: #### P THINT #### [facility] [address] [address] [address] Jessica Mosqueda EGFR-AF AZERBAIJANI 32 mL/min/1.73m2 Critically low >=[address] [facility] Comment on above: Performed By: #### P THINT #### [facility] [address] [address] [address] Jessica Mosqueda EGFR-NON AF AZERBAIJANI 27 mL/min/1.73m2 Critically low >=60 [facility] Comment on above: Performed By: #### P THINT #### [facility] [address] [address] [address] Jessica Mosqueda Globulin (S) [Mass/Vol] 3.5 g/dL Normal T [facility] Comment on above: Performed By: #### P THINT #### [facility] [address] [address] [address] Jessica Mosqueda Glucose [Mass/Vol] 75 mg/dL Normal 74-106 [facility] Comment on above: Performed By: #### P THINT #### [facility] [address] [address] [address] Jessica Mosqueda Potassium [Moles/Vol] 4.4 mmol/L Normal 3.5-5.1 [facility] Comment on above: Performed By: #### P THINT #### [facility] [address] [address] [address] Jessica Mosqueda Protein [Mass/Vol] 7.4 g/dL Normal 6.4-8.2 [facility] Comment on above: Performed By: #### P THINT #### [facility] [address] [address] [address] Jessica Mosqueda Sodium [Moles/Vol] 141 mmol/L Normal 136-145 [facility] Comment on above: Performed By: #### P THINT #### [facility] [address] [address] [address] Jessica Mosqueda Urea nitrogen [Mass/Vol] 37.0 mg/dL Critically high 7.0-18 .0 [facility] Comment on above: Performed By: #### P THINT #### [facility] [address] [address] [address] Jessica Mosqueda Urea nitrogen/Creatinine [Mass ratio] 18.0 mg/mg Normal [facility] Comment on above: Performed By: #### P THINT #### [facility] [address] [place] [address] Dr. Jessica Mosqueda PROF 14(COMP METB)on 022 Albumin [Mass/Vol] 3.9 g/dL Normal 3.4-5.0 [facility] Comment on above: Performed By: #### C MP #### [facility] [address] [place] [address] Dr. Jessica Mosqueda Albumin/Globulin [Mass ratio] 1.2 {ratio} Normal [facility] Comment on above: Performed By: #### C MP #### [facility] [address] [place] [address] Dr. Jessica Mosqueda ALP [Catalytic activity/Vol] 32 U/L Critically low 46- 116 [facility] Comment on above: Performed By: #### C MP #### [facility] [address] [place] [address] Dr. Jessica Mosqueda ALT [Catalytic activity/Vol] 12 U/L Critically low 14- 59 [facility] Comment on above: Performed By: #### C MP #### [facility] [address] [place] [address] Dr. Jessica Mosqueda Anion gap [Moles/Vol] 13.6 mmol/L Normal [facility] Comment on above: Performed By: #### C MP #### [facility] [address] [place] [address] Dr. Jessica Mosqueda AST [Catalytic activity/Vol] 15 U/L Normal 15-37 [facility] Comment on above: Performed By: #### C MP #### [facility] [address] [place] [address] Dr. Jessica Mosqueda Bilirubin [Mass/Vol] 0.2 mg/dL Normal 0.2-1.0 [facility] Comment on above: Performed By: #### C MP #### [facility] [address] [place] [address] Dr. Jessica Mosqueda Calcium [Mass/Vol] 9.2 mg/dL Normal 8.5-10.1 [facility] Comment on above: Performed By: #### C MP #### [facility] [address] [address] [address] Jessica Mosqueda Chloride [Moles/Vol] 105 mmol/L Normal 98-107 [facility] Comment on above: Performed By: #### C MP #### [facility] [address] [address] [address] Jessica Mosqueda CO2 [Moles/Vol] 26.0 mmol/L Normal 21.0-32.0 [facility] Comment on above: Performed By: #### C MP #### [facility] [address] [address] [address] Jessica Mosqueda Creatinine [Mass/Vol] 1.98 mg/dL Critically high 0.55-1.02 [facility] Comment on above: Performed By: #### C MP #### [facility] [address] [place] [address] Dr. Jessica Mosqueda EGFR-AF AZERBAIJANI 34 mL/min/1.73m2 Critically low >=60 [facility] Comment on above: Performed By: #### C MP #### [facility] [address] [place] [address] Dr. Jessica Mosqueda EGFR-NON AF AZERBAIJANI 28 mL/min/1.73m2 Critically low >=60 [facility] Comment on above: Performed By: #### C MP #### [facility] [address] [place] [address] Dr. Jessica Mosqueda Globulin (S) [Mass/Vol] 3.3 g/dL Normal [facility] Comment on above: Performed By: #### C MP #### [facility] [address] [address] [address] Jessica Mosqueda Glucose [Mass/Vol] 93 mg/dL Normal 74-106 [facility] Comment on above: Performed By: #### C MP #### [facility] [address] [address] [address] Jessica Mosqueda Potassium [Moles/Vol] 4.6 mmol/L Normal 3.5-5.1 [facility] Comment on above: Performed By: #### C MP #### [facility] [address] [address] [address] Jessica Mosqueda Protein [Mass/Vol] 7.2 g/dL Normal 6.4-8.2 [facility] Comment on above: Performed By: #### C MP #### [facility] [address] [place] [address] Dr. Jessica Mosqueda Sodium [Moles/Vol] 140 mmol/L Normal 136-145 [facility] Comment on above: Performed By: #### C MP #### [facility] [address] [place] [address] Dr. Jessica Mosqueda Urea nitrogen [Mass/Vol] 23.0 mg/dL Critically high 7.0-18 .0 [facility] Comment on above: Performed By: #### C MP #### [facility] [address] [place] [address] Dr. Jessica Mosqueda Urea nitrogen/Creatinine [Mass ratio] 11.6 mg/mg Normal [facility] Comment on above: Performed By: #### C MP #### [facility] [address] [place] [address] Dr. Jessica Mosqueda PTH INTACTon 03-23-2022 PTH, Intact 71 pg/mL Critically high 15-65 [facility] Comment on above: Performed By: #### P THINT #### [facility] [address] [place] [address] Dr. Jessica Mosqueda HEMOGRAM AND PLATELon 2021 Hematocrit (Bld) [Volume fraction] 37.8 % Normal 3 6.0-48.0 [facility] Comment on above: Performed By: #### H H #### [facility] [address] [place] [address] Dr. Jessica Mosqueda Hemoglobin (Bld) [Mass/Vol] 12.3 g/dL Normal 12.0-16. 0 [facility] Comment on above: Performed By: #### H H #### [facility] [address] [place] [address] Dr. Jessica Mosqueda MCH (RBC) [Entitic mass] 29.6 pg Normal 26.7-34.0 [facility] Comment on above: Performed By: #### H H #### [facility] [address] [address] [address] Jessica Mosqueda MCHC (RBC) [Mass/Vol] 32.5 g/dL Normal 29.9-35.2 [facility] Comment on above: Performed By: #### H H #### [facility] [address] [address] [address] Jessica Mosqueda MCV (RBC) [Entitic vol] 90.9 fL Normal 81.0-99.0 [facility] Comment on above: Performed By: #### H H #### [facility] [address] [address] [address] Jessica Mosqueda PLT 158 103/ul Normal 150-450 [facility] Comment on above: Performed By: #### H H #### [facility] [address] [place] [address] Dr. Jessica Mosqueda RBC 4.16 106/ul Critically low 4.20-5.40 [facility] Comment on above: Performed By: #### H H #### [facility] [address] [address] [address] Jessica Mosqueda WBC 10.3 103/ul Normal 4.0-11.0 [facility] Comment on above: Performed By: #### H H #### [facility] [address] [place] [address] Dr. Jessica Mosqueda PHOSPHORUSon 03-22-2022 Phosphate [Mass/Vol] 4.7 mg/dL Normal 2.6-4.7 [facility] Comment on above: Performed By: #### L IPID, CMP, TSH, T7 #### [facility] [address] [address] [address] Jessica Mosqueda PROF 14(COMP METB)on 022 Albumin [Mass/Vol] 4.1 g/dL Normal 3.4-5.0 [facility] Comment on above: Performed By: #### L IPID, CMP, TSH, T7 #### [facility] [address] [address] [address] Jessica Mosqueda Albumin/Globulin [Mass ratio] 1.2 {ratio} Normal [facility] Comment on above: Performed By: #### L IPID, CMP, TSH, T7 #### [facility] [address] [place] [address] Dr. Jessica Mosqueda ALP [Catalytic activity/Vol] 36 U/L Critically low 46- 116 [facility] Comment on above: Performed By: #### L IPID, CMP, TSH, T7 #### [facility] [address] [place] [address] Dr. Jessica Mosqueda ALT [Catalytic activity/Vol] 16 U/L Normal 14-59 [facility] Comment on above: Performed By: #### L IPID, CMP, TSH, T7 #### [facility] [address] [place] [address] Dr. Jessica Mosqueda Anion gap [Moles/Vol] 15.4 mmol/L Normal Th [facility] Comment on above: Performed By: #### L IPID, CMP, TSH, T7 #### [facility] [address] [place] [address] Dr. Jessica Mosqueda AST [Catalytic activity/Vol] 12 U/L Critically low 15- 37 [facility] Comment on above: Performed By: #### L IPID, CMP, TSH, T7 #### [facility] [address] [place] [address] Dr. Jessica Mosqueda Bilirubin [Mass/Vol] 0.6 mg/dL Normal 0.2-1.0 [facility] Comment on above: Performed By: #### L IPID, CMP, TSH, T7 #### [facility] [address] [place] [address] Dr. Jessica Mosqueda Calcium [Mass/Vol] 9.3 mg/dL Normal 8.5-10.1 [facility] Comment on above: Performed By: #### L IPID, CMP, TSH, T7 #### [facility] [address] [place] [address] Dr. Jessica Mosqueda Chloride [Moles/Vol] 103 mmol/L Normal 98-107 [facility] Comment on above: Performed By: #### L IPID, CMP, TSH, T7 #### [facility] [address] [place] [address] Dr. Jessica Mosqueda CO2 [Moles/Vol] 24.4 mmol/L Normal 21.0-32.0 [facility] Comment on above: Performed By: #### L IPID, CMP, TSH, T7 #### [facility] [address] [place] [address] Dr. Jessica Mosqueda Creatinine [Mass/Vol] 2.04 mg/dL Critically high 0.55-1.02 [facility] Comment on above: Performed By: #### L IPID, CMP, TSH, T7 #### [facility] [address] [place] [address] Dr. Jessica Mosqueda EGFR-AF AZERBAIJANI 33 mL/min/1.73m2 Critically low >=60 [facility] Comment on above: Performed By: #### L IPID, CMP, TSH, T7 #### [facility] [address] [place] [address] Dr. Jessica Mosqudea EGFR-NON AF AZERBAIJANI 27 mL/min/1.73m2 Critically low >=60 [facility] Comment on above: Performed By: #### L IPID, CMP, TSH, T7 #### [facility] [address] [place] [address] Dr. Jessica Mosqueda Globulin (S) [Mass/Vol] 3.3 g/dL Normal [facility] Comment on above: Performed By: #### L IPID, CMP, TSH, T7 #### [facility] [address] [place] [address] Dr. Jessica Mosqueda Glucose [Mass/Vol] 84 mg/dL Normal 74-106 [facility] Comment on above: Performed By: #### L IPID, CMP, TSH, T7 #### [facility] [address] [place] [address] Dr. Jessica Mosqueda Potassium [Moles/Vol] 3.8 mmol/L Normal 3.5-5.1 [facility] Comment on above: Performed By: #### L IPID, CMP, TSH, T7 #### [facility] [address] [place] [address] Dr. Jessica Mosqueda Protein [Mass/Vol] 7.4 g/dL Normal 6.4-8.2 [facility] Comment on above: Performed By: #### L IPID, CMP, TSH, T7 #### [facility] [address] [place] [address] Dr. Jessica Mosqueda Sodium [Moles/Vol] 139 mmol/L Normal 136-145 [facility] Comment on above: Performed By: #### L IPID, CMP, TSH, T7 #### [facility] [address] [place] [address] Dr. Jessica Mosqueda Urea nitrogen [Mass/Vol] 30.0 mg/dL Critically high 7.0-18 .0 [facility] Comment on above: Performed By: #### L IPID, CMP, TSH, T7 #### [facility] [address] [place] [address] Dr. Jessica Mosqueda Urea nitrogen/Creatinine [Mass ratio] 14.7 mg/mg Normal [facility] Comment on above: Performed By: #### L IPID, CMP, TSH, T7 #### [facility] [address] [place] [address] Dr. Jessica Mosqueda UA RANDOMon 03-22-2022 Bilirubin Ql (U) Negative Normal NEGATIVE [facility] Comment on above: Performed By: #### L IPID, CMP, TSH, T7 #### [facility] [address] [place] [address] Dr. Jessica Mosqueda Clarity (U) CLEAR Normal CLEAR [facility] Comment on above: Performed By: #### L IPID, CMP, TSH, T7 #### [facility] [address] [place] [address] Dr. Jessica Mosqueda Color (U) LT. YELLOW Normal YELLOW [facility] Comment on above: Performed By: #### L IPID, CMP, TSH, T7 #### [facility] [address] [place] [address] Dr. Jessica Mosqueda Glucose Ql (U) Negative Normal NEGATIVE [facility] Comment on above: Performed By: #### L IPID, CMP, TSH, T7 #### [facility] [address] [address] [address] Jessica Mosqueda Hemoglobin Ql (U) Negative Normal NEGATIVE [facility] Comment on above: Performed By: #### L IPID, CMP, TSH, T7 #### [facility] [address] [address] [address] Jessica Mosqueda Ketones Ql (U) Negative Normal NEGATIVE [facility] Comment on above: Performed By: #### L IPID, CMP, TSH, T7 #### [facility] [address] [address] [address] Jessica oMsqueda LEUKOCYTES Negative Normal NEGATIVE [facility] Comment on above: Performed By: #### L IPID, CMP, TSH, T7 #### [facility] [address] [place] [address] Dr. Jessica Mosqueda Nitrite Ql (U) Negative Normal NEGATIVE [facility] Comment on above: Performed By: #### L IPID, CMP, TSH, T7 #### [facility] [address] [address] [address] Jessica Mosqueda pH (U) 5.5 [pH] Normal 5-9 [facility] Comment on above: Performed By: #### L IPID, CMP, TSH, T7 #### [facility] [address] [place] [address] Dr. Jessica Mosqueda SPEC GRAVITY 1.005 Normal 1.005-<=1.025 [facility] Comment on above: Performed By: #### L IPID, CMP, TSH, T7 #### [facility] [address] [place] [address] Dr. Jessica Mosqueda UA PROTEIN Negative Normal NEGATIVE/ TRACE [facility] Comment on above: Performed By: #### L IPID, CMP, TSH, T7 #### [facility] [address] [address] [address] Jessica Mosqueda Urobilinogen Qn (U) 0.2 {Fran'U}/dL Normal 0.2 - 1. [address] [facility] Comment on above: Performed By: #### L IPID, CMP, TSH, T7 #### [facility] [address] [address] [address] Jessica Mosqueda URINE T PROTEIN CREAT RATIOo n 03-22-2022 UR TOTAL PROTEIN <6.0 Normal <=12.0 [facility] Comment on above: Performed By: #### L IPID, CMP, TSH, T7 #### [facility] [address] [address] [address] Jessica Mosqueda URINE CREAT 23.46 mg/dL Normal 20.00-300.00 [facility] Comment on above: Performed By: #### L IPID, CMP, TSH, T7 #### [facility] [address] [address] [address] Jessica Mosqueda PROF 14(COMP METB)on 022 Albumin [Mass/Vol] 3.8 g/dL Normal 3.4-5.0 [facility] Comment on above: Performed By: #### L IPID, CMP, TSH, T7 #### [facility] [address] [place] [address] Dr. Jessica Mosqueda Albumin/Globulin [Mass ratio] 1.3 {ratio} Normal [facility] Comment on above: Performed By: #### L IPID, CMP, TSH, T7 #### [facility] [address] [place] [address] Dr. Jessica Mosqueda ALP [Catalytic activity/Vol] 35 U/L Critically low 46- 116 [facility] Comment on above: Performed By: #### L IPID, CMP, TSH, T7 #### [facility] [address] [place] [address] Dr. Jessica Mosqueda ALT [Catalytic activity/Vol] 17 U/L Normal 14-59 [facility] Comment on above: Performed By: #### L IPID, CMP, TSH, T7 #### [facility] [address] [place] [address] Dr. Jessica Mosqueda Anion gap [Moles/Vol] 12.2 mmol/L Normal [facility] Comment on above: Performed By: #### L IPID, CMP, TSH, T7 #### [facility] [address] [address] [address] Jessica Mosqueda AST [Catalytic activity/Vol] 13 U/L Critically low 15- 37 [facility] Comment on above: Performed By: #### L IPID, CMP, TSH, T7 #### [facility] [address] [address] [address] Jessica Mosqueda Bilirubin [Mass/Vol] 0.4 mg/dL Normal 0.2-1.0 [facility] Comment on above: Performed By: #### L IPID, CMP, TSH, T7 #### [facility] [address] [address] [address] Jessica Mosqueda Calcium [Mass/Vol] 8.6 mg/dL Normal 8.5-10.1 [facility] Comment on above: Performed By: #### L IPID, CMP, TSH, T7 #### [facility] [address] [place] [address] Dr. Jessica Mosqueda Chloride [Moles/Vol] 106 mmol/L Normal 98-107 [facility] Comment on above: Performed By: #### L IPID, CMP, TSH, T7 #### [facility] [address] [address] [address] Jessica Mosqueda CO2 [Moles/Vol] 26.1 mmol/L Normal 21.0-32.0 [facility] Comment on above: Performed By: #### L IPID, CMP, TSH, T7 #### [facility] [address] [address] [address] Jessica Mosqueda Creatinine [Mass/Vol] 1.76 mg/dL Critically high 0.55-1.02 [facility] Comment on above: Performed By: #### L IPID, CMP, TSH, T7 #### [facility] [address] [place] [address] Dr. Jessica Mosqueda EGFR-AF AZERBAIJANI 39 mL/min/1.73m2 Critically low >=60 [facility] Comment on above: Performed By: #### L IPID, CMP, TSH, T7 #### [facility] [address] [place] [address] Dr. Jessica Mosqueda EGFR-NON AF AZERBAIJANI 32 mL/min/1.73m2 Critically low >=[address] [facility] Comment on above: Performed By: #### L IPID, CMP, TSH, T7 #### [facility] [address] [address] [address] Jessica Mosqueda Globulin (S) [Mass/Vol] 3.0 g/dL Normal T [facility] Comment on above: Performed By: #### L IPID, CMP, TSH, T7 #### [facility] [address] [address] [address] Jessica Mosqueda Glucose [Mass/Vol] 81 mg/dL Normal 74-106 [facility] Comment on above: Performed By: #### L IPID, CMP, TSH, T7 #### [facility] [address] [address] [address] Jessica Mosqueda Potassium [Moles/Vol] 4.3 mmol/L Normal 3.5-5.1 [facility] Comment on above: Performed By: #### L IPID, CMP, TSH, T7 #### [facility] [address] [address] [address] Jessica Mosqueda Protein [Mass/Vol] 6.8 g/dL Normal 6.4-8.2 [facility] Comment on above: Performed By: #### L IPID, CMP, TSH, T7 #### [facility] [address] [address] [address] Jessica Mosqueda Sodium [Moles/Vol] 140 mmol/L Normal 136-145 [facility] Comment on above: Performed By: #### L IPID, CMP, TSH, T7 #### [facility] [address] [address] [address] Jessica Mosqueda Urea nitrogen [Mass/Vol] 20.0 mg/dL Critically high 7.0-18 .0 [facility] Comment on above: Performed By: #### L IPID, CMP, TSH, T7 #### [facility] [address] [address] [address] Jessica Mosqueda Urea nitrogen/Creatinine [Mass ratio] 11.4 mg/mg Normal [facility] Comment on above: Performed By: #### L IPID, CMP, TSH, T7 #### [facility] [address] [address] [address] Jessica Mosqueda PROF 14(COMP METB)on 022 Albumin [Mass/Vol] 4.0 g/dL Normal 3.4-5.0 [facility] Comment on above: Performed By: #### L IPID, CMP, TSH, T7 #### [facility] [address] [address] [address] Jessica Mosqueda Albumin/Globulin [Mass ratio] 1.2 {ratio} Normal [facility] Comment on above: Performed By: #### L IPID, CMP, TSH, T7 #### [facility] [address] [place] [address] Dr. Jessica Mosqueda ALP [Catalytic activity/Vol] 31 U/L Critically low 46- 116 [facility] Comment on above: Performed By: #### L IPID, CMP, TSH, T7 #### [facility] [address] [place] [address] Dr. Jessica Mosqueda ALT [Catalytic activity/Vol] 19 U/L Normal 14-59 [facility] Comment on above: Performed By: #### L IPID, CMP, TSH, T7 #### [facility] [address] [place] [address] Dr. Jessica Mosqueda Anion gap [Moles/Vol] 13.7 mmol/L Normal [facility] Comment on above: Performed By: #### L IPID, CMP, TSH, T7 #### [facility] [address] [place] [address] Dr. Jessica Mosqueda AST [Catalytic activity/Vol] 12 U/L Critically low 15- 37 [facility] Comment on above: Performed By: #### L IPID, CMP, TSH, T7 #### [facility] [address] [place] [address] Dr. Jessica Mosqueda Bilirubin [Mass/Vol] 0.3 mg/dL Normal 0.2-1.0 [facility] Comment on above: Performed By: #### L IPID, CMP, TSH, T7 #### [facility] [address] [place] [address] Dr. Jessica Mosqueda Calcium [Mass/Vol] 9.3 mg/dL Normal 8.5-10.1 [facility] Comment on above: Performed By: #### L IPID, CMP, TSH, T7 #### [facility] [address] [place] [address] Dr. Jessica Mosqueda Chloride [Moles/Vol] 106 mmol/L Normal 98-107 [facility] Comment on above: Performed By: #### L IPID, CMP, TSH, T7 #### [facility] [address] [place] [address] Dr. Jessica Mosqueda CO2 [Moles/Vol] 25.4 mmol/L Normal 21.0-32.0 [facility] Comment on above: Performed By: #### L IPID, CMP, TSH, T7 #### [facility] [address] [place] [address] Dr. Jessica Mosqueda Creatinine [Mass/Vol] 1.84 mg/dL Critically high 0.55-1.02 [facility] Comment on above: Performed By: #### L IPID, CMP, TSH, T7 #### [facility] [address] [place] [address] Dr. Jessica Mosqueda EGFR-AF AZERBAIJANI 37 mL/min/1.73m2 Critically low >=60 [facility] Comment on above: Performed By: #### L IPID, CMP, TSH, T7 #### [facility] [address] [place] [address] Dr. Jessica Mosqueda EGFR-NON AF AZERBAIJANI 30 mL/min/1.73m2 Critically low >=60 [facility] Comment on above: Performed By: #### L IPID, CMP, TSH, T7 #### [facility] [address] [place] [address] Dr. Jessica Mosqueda Globulin (S) [Mass/Vol] 3.4 g/dL Normal [facility] Comment on above: Performed By: #### L IPID, CMP, TSH, T7 #### [facility] Laboratory [address] [place] [address] Dr. Jessica Mosqueda Glucose [Mass/Vol] 99 mg/dL Normal 74-106 [facility] Comment on above: Performed By: #### L IPID, CMP, TSH, T7 #### [facility] [address] [address] [address] Jessica Mosqueda Potassium [Moles/Vol] 4.1 mmol/L Normal 3.5-5.1 [facility] Comment on above: Performed By: #### L IPID, CMP, TSH, T7 #### [facility] [address] [address] [address] Jessica Mosqueda Protein [Mass/Vol] 7.4 g/dL Normal 6.4-8.2 [facility] Comment on above: Performed By: #### L IPID, CMP, TSH, T7 #### [facility] [address] [address] [address] Jessica Mosqueda Sodium [Moles/Vol] 141 mmol/L Normal 136-145 [facility] Comment on above: Performed By: #### L IPID, CMP, TSH, T7 #### [facility] [address] [address] [address] Jessica Mosqueda Urea nitrogen [Mass/Vol] 25.0 mg/dL Critically high 7.0-18 .0 [facility] Comment on above: Performed By: #### L IPID, CMP, TSH, T7 #### [facility] [address] [address] [address] Jessica Mosqueda Urea nitrogen/Creatinine [Mass ratio] 13.6 mg/mg Normal [facility] Comment on above: Performed By: #### L IPID, CMP, TSH, T7 #### [facility] [address] [address] [address] Jessica Mccauley 09-04-2019 CNOVSP Visit (SP) Office ([facility]) ISABEL RIVERA ([id number]) 1980 F Date Time Provider Department 09/04/19 3:45 PM LUIS ANGEL HALL During your visit today, we recorded the following information about you: Temperature Pulse Respiration Blood pressure 97.6 degrees 66/minute 18/minute 115/66 Weight Height 82.2 kg 1.676 m Luis Angel Hall, 09/06/2019 9:21 AM Signed PATIENT NAME: Isabel Rivera REFERRING PHYSICIAN: Timothy Mills MD [address] [place] [address] [place] [address] PRIMARY CARE PHYSICIAN: Maren James MD CHIEF COMPLAINT: Factor v leiden (hcc) (primary encounter diagnosis) ASSESSMENT/PLAN: (D68.51) Factor V Leiden (HCC) (primary encounter diagnosis) No orders found for this visit on 09/04/19. Return f/u prn. . 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 Second unprovoked 09/2017 on lifelong xarelto. We discussed hypercoag workup will not affect management. She would like an answer though as to why she has had multiple DVT at such a young age. Hypercoagulable workup completed. She did not have a lupus anticoagulant. Protein ENRICHMENT TEACHER were within expected ranges. She had negative PT gene mutation but was positive for Leiden factor V mutation. Regardless, she lifelong anticoagulation and was counseled appropriately. HISTORY OF PRESENT ILLNESS: This is a 38 year old female past medical history includes polycystic kidney disease. Past medical history includes history of multiple deep vein thrombus. She had a right leg DVT treated with heparin and warfarin for 6 months after delivery of a second child in 2006. She also has bilateral lower extremity venous insufficiency noted initially in 2018. She did have a second DVT in September 2017. Right posterior tibial vein and associated pattern setter veins. Follows with Dr. Bateman, vascular. She does exercise slightly 3 days a week and works a [employer] in [facility]. Medications as of September 2017 included only Xarelto. She is . No history of miscarriages. Her father has history of DVTs and is on chronic warfarin. July 30, 2019 LLE she has increased bruising and pain medial malleoli. cvs changes noted. Periods very heavy, she is considering IUD and wants hypercoag workup first. September 04, 2019 Ankle is still healing. No blood clot. Bleeding has been slight improved. She is regular. Vitals: BP 115/66 Pulse 66 Temp 36.4 ?C (97.6 ?F) (Temporal) Resp 18 Ht 167.6 cm (5' 5.98 ) Wt 82.2 kg (181 lb 3.2 oz) SpO2 100% BMI 29.26 kg/m? Body mass index is 29.26 kg/m?. Body surface area is 1.96 meters squared. REVIEW OF SYSTEMS PHYSICAL EXAM ECOG PS: 0 NEGATIVES POSITIVES NEGATIVES POSITIVES GEN: fevers, sweats, chills. Overall feels well. GEN: Well appearing, alert, in no acute distress, appears stated age SKIN: lesions, rash, itching. SKIN: Normal color, texture, turgor, no rashes or lesions HEENT: significant headaches, changes in hearing, changes in vision, nose bleeds. ENT: No scleral icterus. NECK: Supple, no thyromegaly, no JVD. : dysuria, frequency or incontinence. LYMPH: No cervical, supraclavicular, axillary, inguinal adenopathy. RESP: dyspnea, cough, wheezing. LUNG: Clear to auscultation, no wheezing rales or rhonchi CARD: chest pain, leg swelling, palpitations. HEART: Regular. No murmurs, gallop, or rubs. No ectopy. GI: abdominal pain, nausea, vomiting, diarrhea, constipation, melena, hematochezia. ABDM: Soft. Non-tender. Non-distended. Bowel sounds normal. No masses. No hepatosplenomegaly. HEME: prolonged bleeding, bruising, adenopathy. EXT: No clubbing, cyanosis or edema. MUSC: joint pain or swelling. MUSC: No joint swelling, deformity, or tenderness. Some venous insufficiency changes along the lateral aspect of her left lower extremity. NEURO: syncope, seizures, peripheral numbness or tingling. BACK: No tenderness to palpation. No flank tenderness. MEDICATIONS: rivaroxaban (XARELTO) 20 mg tablet Take 20 mg by mouth once daily. cetirizine (ZYRTEC) 10 mg tablet Take 10 mg by mouth once daily. ferrous sulfate (IRON ORAL) Take 65 mg by mouth once daily. ALLERGIES: ALLERGIES Allergen Reactions - Bactrim [Sulfametho* Rash, Hives PAST MEDICAL HISTORY Diagnosis Date - History of blood clots - Polycystic kidney disease No past surgical history on file. FAMILY HISTORY Problem Relation Age of Onset - Blood Clots Father - Blood Clots Brother SOCIAL HISTORY: Social History Tobacco Use - Smoking status: Never Smoker - Smokeless tobacco: Never Used Substance Use Topics - Alcohol use: Yes Comment: Socially - Drug use: Never COUNSELING: I discussed with Isabel the natural history, treated course, and prognosis of Factor v leiden (hcc) (primary encounter diagnosis); my impression as well as the rationale, logistics, risks, benefits, and alternatives to the management options noted above; and my recommendations listed below. The patient Isabel Rivera verbalized understanding and agreed with these recommendations and plan. I answered all questions satisfactorily.. Ankit Hall D.O. Medical Oncologist [place], [place] Cc. Dr. Bateman. Referring Provider: LUIS ANGEL HALL [[id number]] Allergies As of Date: 09/04/2019 Noted Allergy Reaction BACTRIM (SULFAMETHOXAZOLE-TRIMETH*09/04/2019 2 - Rash 4 - Hives Date Reviewed: 09/04/2019 Reviewed by: Florina Estes - Fully Assessed Reason for Visit: acute deep vein thrombosis [Other] Cmt: follow up lab Primary Visit Diagnosis:Factor V Leiden (HCC) [D68.51] Disposition: Return f/u prn. . Follow-up and Disposition History Recorded Prescriptions as of 09/04/2019 Sig: RIVAROXABAN 20 MG TABLET Take 20 mg by mouth once abdiel* CETIRIZINE 10 MG TABLET Take 10 mg by mouth once abdiel* IRON ORAL Take 65 mg by mouth once abdiel* Problem List As Of Date: 09/04/2019 (None) Encounter Status:Closed by LUIS ANGEL HALL DO on 09/06/19 Normal [facility] PROGRESSon 09-04-2019 PROGRESS HNO ID: [id number] Author: Luis Angel Hall Service: ? Author Type: Physician Type: Progress Notes Filed: 09/06/2019 9:21 AM Note Text: PATIENT NAME: Isabel Rivera REFERRING PHYSICIAN: Timothy Mills MD [address] [place] [address] [place] [address] PRIMARY CARE PHYSICIAN: Maren James MD CHIEF COMPLAINT: Factor v leiden (hcc) (primary encounter diagnosis) ASSESSMENT/PLAN: (D68.51) Factor V Leiden (HCC) (primary encounter diagnosis) No orders found for this visit on 09/04/19. Return f/u prn. . 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 Second unprovoked 09/2017 on lifelong xarelto. We discussed hypercoag workup will not affect management. She would like an answer though as to why she has had multiple DVT at such a young age. Hypercoagulable workup completed. She did not have a lupus anticoagulant. Protein ENRICHMENT TEACHER were within expected ranges. She had negative PT gene mutation but was positive for Leiden factor V mutation. Regardless, she lifelong anticoagulation and was counseled appropriately. HISTORY OF PRESENT ILLNESS: This is a 38 year old female past medical history includes polycystic kidney disease. Past medical history includes history of multiple deep vein thrombus. She had a right leg DVT treated with heparin and warfarin for 6 months after delivery of a second child in 2006. She also has bilateral lower extremity venous insufficiency noted initially in 2018. She did have a second DVT in September 2017. Right posterior tibial vein and associated pattern setter veins. Follows with Dr. Bateman, vascular. She does exercise slightly 3 days a week and works a [employer] in [facility]. Medications as of September 2017 included only Xarelto. She is . No history of miscarriages. Her father has history of DVTs and is on chronic warfarin. July 30, 2019 LLE she has increased bruising and pain medial malleoli. cvs changes noted. Periods very heavy, she is considering IUD and wants hypercoag workup first. September 04, 2019 Ankle is still healing. No blood clot. Bleeding has been slight improved. She is regular. Vitals: BP 115/66 Pulse 66 Temp 36.4 ?C (97.6 ?F) (Temporal) Resp 18 Ht 167.6 cm (5' 5.98 ) Wt 82.2 kg (181 lb 3.2 oz) SpO2 100% BMI 29.26 kg/m? Body mass index is 29.26 kg/m?. Body surface area is 1.96 meters squared. REVIEW OF SYSTEMS PHYSICAL EXAM ECOG PS: 0 NEGATIVES POSITIVES NEGATIVES POSITIVES GEN: fevers, sweats, chills. Overall feels well. GEN: Well appearing, alert, in no acute distress, appears stated age SKIN: lesions, rash, itching. SKIN: Normal color, texture, turgor, no rashes or lesions HEENT: significant headaches, changes in hearing, changes in vision, nose bleeds. ENT: No scleral icterus. NECK: Supple, no thyromegaly, no JVD. : dysuria, frequency or incontinence. LYMPH: No cervical, supraclavicular, axillary, inguinal adenopathy. RESP: dyspnea, cough, wheezing. LUNG: Clear to auscultation, no wheezing rales or rhonchi CARD: chest pain, leg swelling, palpitations. HEART: Regular. No murmurs, gallop, or rubs. No ectopy. GI: abdominal pain, nausea, vomiting, diarrhea, constipation, melena, hematochezia. ABDM: Soft. Non-tender. Non-distended. Bowel sounds normal. No masses. No hepatosplenomegaly. HEME: prolonged bleeding, bruising, adenopathy. EXT: No clubbing, cyanosis or edema. MUSC: joint pain or swelling. MUSC: No joint swelling, deformity, or tenderness. Some venous insufficiency changes along the lateral aspect of her left lower extremity. NEURO: syncope, seizures, peripheral numbness or tingling. BACK: No tenderness to palpation. No flank tenderness. MEDICATIONS: rivaroxaban (XARELTO) 20 mg tablet Take 20 mg by mouth once daily. cetirizine (ZYRTEC) 10 mg tablet Take 10 mg by mouth once daily. ferrous sulfate (IRON ORAL) Take 65 mg by mouth once daily. ALLERGIES: ALLERGIES Allergen Reactions - Bactrim [Sulfametho* Rash, Hives PAST MEDICAL HISTORY Diagnosis Date - History of blood clots - Polycystic kidney disease No past surgical history on file. FAMILY HISTORY Problem Relation Age of Onset - Blood Clots Father - Blood Clots Brother SOCIAL HISTORY: Social History Tobacco Use - Smoking status: Never Smoker - Smokeless tobacco: Never Used Substance Use Topics - Alcohol use: Yes Comment: Socially - Drug use: Never COUNSELING: I discussed with Isabel the natural history, treated course, and prognosis of Factor v leiden (hcc) (primary encounter diagnosis); my impression as well as the rationale, logistics, risks, benefits, and alternatives to the management options noted above; and my recommendations listed below. The patient Isabel Rivera verbalized understanding and agreed with these recommendations and plan. I answered all questions satisfactorily.. Ankit Hall D.O. Medical Oncologist [place], [place] Cc. Dr. Bateman. [facility] Visit (SP) Office ([facility]) DELMYISABEL ([id number]) 1980 F Date Time Provider Department 07/30/19 3:45 PM LUIS ANGEL HALL During your visit today, we recorded the following information about you: Temperature Pulse Respiration Blood pressure 98.4 degrees 61/minute 16/minute 107/69 Weight Height 80.6 kg 1.676 m Luis Angel Hall, DO 08/02/2019 11:50 AM Signed PATIENT NAME: Isabel Rivera REFERRING PHYSICIAN: Timothy Mills MD [address] [place] [address] [place] [address] PRIMARY CARE PHYSICIAN: Maren James MD CHIEF COMPLAINT: Acute deep vein thrombosis (dvt) of proximal vein of both lower extremities (hcc) (primary encounter diagnosis) ASSESSMENT/PLAN: (I82.4Y3) Acute deep vein thrombosis (DVT) of proximal vein of both lower extremities (HCC) (primary encounter diagnosis) Visit (SP) Office on 07/30/19 - FACTOR V LEIDEN/PCR - PROTHROMBIN GENE PCR - PROTEIN C FUNCT - PROTEIN S CLOTTABLE - ANTITHROMBIN ACTIVITY - LUPUS ANTICOAG PL - B 2 GPI IGG AND IGM - ANTI-CARDIOLIPIN AB - HOMOCYSTEINE - FERRITIN BLD - IRON + TIBC - CBC + DIFF (FOR REMOTE [facility] USE) - BASIC METABOLIC PNL - HEPATIC FUNCTION PNL - rivaroxaban (XARELTO) 20 mg tablet - cetirizine (ZYRTEC) 10 mg tablet - ferrous sulfate (IRON ORAL) - US LEG VEIN DVT [facility] Return labs today. f/u 4 to 6 wks. BL LE US please. . 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 Second unprovoked 09/2017 on lifelong xarelto. We discussed hypercoag workup will not affect management. She would like an answer though as to why she has had multiple DVT at such a young age. F/u after. Will repeat US. HISTORY OF PRESENT ILLNESS: This is a 38 year old female past medical history includes polycystic kidney disease. Past medical history includes history of multiple deep vein thrombus. She had a right leg DVT treated with heparin and warfarin for 6 months after delivery of a second child in 2006. She also has bilateral lower extremity venous insufficiency noted initially in 2018. She did have a second DVT in September 2017. Right posterior tibial vein and associated pattern setter veins. Follows with Dr. Bateman, vascular. She does exercise slightly 3 days a week and works a [employer] in [facility]. Medications as of September 2017 included only Xarelto. She is . No history of miscarriages. Her father has history of DVTs and is on chronic warfarin. July 30, 2019 LLE she has increased bruising and pain medial malleoli. cvs changes noted. Periods very heavy, she is considering IUD and wants hypercoag workup first. Vitals: BP 107/69 Pulse 61 Temp 36.9 ?C (98.4 ?F) (Oral) Resp 16 Ht 167.6 cm (5' 6 ) Wt 80.6 kg (177 lb 12.8 oz) SpO2 100% BMI 28.70 kg/m? Body mass index is 28.7 kg/m?. Body surface area is 1.94 meters squared. REVIEW OF SYSTEMS PHYSICAL EXAM ECOG PS: 0 NEGATIVES POSITIVES NEGATIVES POSITIVES GEN: fevers, sweats, chills. Overall feels well. GEN: Well appearing, alert, in no acute distress, appears stated age SKIN: lesions, rash, itching. SKIN: Normal color, texture, turgor, no rashes or lesions HEENT: significant headaches, changes in hearing, changes in vision, nose bleeds. ENT: No scleral icterus. NECK: Supple, no thyromegaly, no JVD. : dysuria, frequency or incontinence. LYMPH: No cervical, supraclavicular, axillary, inguinal adenopathy. RESP: dyspnea, cough, wheezing. LUNG: Clear to auscultation, no wheezing rales or rhonchi CARD: chest pain, leg swelling, palpitations. HEART: Regular. No murmurs, gallop, or rubs. No ectopy. GI: abdominal pain, nausea, vomiting, diarrhea, constipation, melena, hematochezia. ABDM: Soft. Non-tender. Non-distended. Bowel sounds normal. No masses. No hepatosplenomegaly. HEME: prolonged bleeding, bruising, adenopathy. EXT: No clubbing, cyanosis or edema. MUSC: joint pain or swelling. MUSC: No joint swelling, deformity, or tenderness. NEURO: syncope, seizures, peripheral numbness or tingling. BACK: No tenderness to palpation. No flank tenderness. MEDICATIONS: rivaroxaban (XARELTO) 20 mg tablet Take 20 mg by mouth once daily. cetirizine (ZYRTEC) 10 mg tablet Take 10 mg by mouth once daily. ferrous sulfate (IRON ORAL) Take 65 mg by mouth once daily. ALLERGIES: ALLERGIES Not on File PAST MEDICAL HISTORY Diagnosis Date - History of blood clots - Polycystic kidney disease No past surgical history on file. FAMILY HISTORY Problem Relation Age of Onset - Blood Clots Father - Blood Clots Brother SOCIAL HISTORY: Social History Tobacco Use - Smoking status: Never Smoker - Smokeless tobacco: Never Used Substance Use Topics - Alcohol use: Yes Comment: Socially - Drug use: Never COUNSELING: I discussed with Isabel the natural history, treated course, and prognosis of Acute deep vein thrombosis (dvt) of proximal vein of both lower extremities (hcc) (primary encounter diagnosis); my impression as well as the rationale, logistics, risks, benefits, and alternatives to the management options noted above; and my recommendations listed below. The patient Isabel Rivera verbalized understanding and agreed with these recommendations and plan. I answered all questions satisfactorily.. Ankit Hall D.O. Medical Oncologist [place], [place] Cc. Dr. Bateman. Referring Provider: TIMOTHY MILLS [[id number]] Allergies As of Date: 07/30/2019 (Not on File) Date Reviewed: 07/30/2019 Reviewed by: Lavonne Borrego - Fully Assessed Reason for Visit: Consult [173] Primary Visit Diagnosis:Acute deep vein thrombosis (DVT) of proximal vein of both lower extremities (HCC) [I82.4Y3] Order(s):US LEG VEIN DVT [facility] [[id number]] Order #: [id number] FUTURE FACTOR V LEIDEN/PCR [SQFVLEID] Order #: [id number] FUTURE PROTHROMBIN GENE PCR [SQPTGENE] Order #: [id number] FUTURE PROTEIN C FUNCT [SQPRCFUN] Order #: [id number] FUTURE PROTEIN S CLOTTABLE [SQPRSCLT] Order #: [id number] FUTURE ANTITHROMBIN ACTIVITY [IMKE4FQE] Order #: [id number] FUTURE LUPUS ANTICOAG PL [SQLUPUSP] Order #: [id number] FUTURE B 2 GPI IGG AND IGM [CTT3WSOX] Order #: [id number] FUTURE ANTI-CARDIOLIPIN AB [SQCARDIO] Order #: [id number] FUTURE HOMOCYSTEINE [SQHOMCYS] Order #: [id number] FUTURE FERRITIN BLD [SQFERR] Order #: [id number] FUTURE IRON + TIBC [SQIRON] Order #: [id number] FUTURE CBC + DIFF (FOR REMOTE [facility] USE) [SQRCBCDF] Order #: [id number] FUTURE BASIC METABOLIC PNL [SQBMP] Order #: [id number] FUTURE HEPATIC FUNCTION PNL [SQHFP] Order #: [id number] FUTURE Disposition: Return labs today. f/u 4 to 6 wks. BL LE US please. . Follow-up and Disposition History Recorded Prescriptions as of 07/30/2019 Sig: RIVAROXABAN 20 MG TABLET Take 20 mg by mouth once abdiel* CETIRIZINE 10 MG TABLET Take 10 mg by mouth once abdiel* IRON ORAL Take 65 mg by mouth once abdiel* Problem List As Of Date: 07/30/2019 (None) Encounter Status:Closed by LUIS ANGEL HALL DO on 08/02/19 [facility] PROGRESSon 07-30-2019 PROGRESS HNO ID: [id number] Author: Luis Angel Hall Service: ? Author Type: Physician Type: Progress Notes Filed: 08/02/2019 11:50 AM Note Text: PATIENT NAME: Isabel Rivera REFERRING PHYSICIAN: Timothy Mills MD [address] [place] [address] [place] [address] PRIMARY CARE PHYSICIAN: Maren James MD CHIEF COMPLAINT: Acute deep vein thrombosis (dvt) of proximal vein of both lower extremities (hcc) (primary encounter diagnosis) ASSESSMENT/PLAN: (I82.4Y3) Acute deep vein thrombosis (DVT) of proximal vein of both lower extremities (HCC) (primary encounter diagnosis) Visit (SP) Office on 12/11/19 - FACTOR V LEIDEN/PCR - PROTHROMBIN GENE PCR - PROTEIN C FUNCT - PROTEIN S CLOTTABLE - ANTITHROMBIN ACTIVITY - LUPUS ANTICOAG PL - B 2 GPI IGG AND IGM - ANTI-CARDIOLIPIN AB - HOMOCYSTEINE - FERRITIN BLD - IRON + TIBC - CBC + DIFF (FOR REMOTE [facility] USE) - BASIC METABOLIC PNL - HEPATIC FUNCTION PNL - rivaroxaban (XARELTO) 20 mg tablet - cetirizine (ZYRTEC) 10 mg tablet - ferrous sulfate (IRON ORAL) - US LEG VEIN DVT [facility] Return labs today. f/u 4 to 6 wks. BL LE US please. . 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 Second unprovoked 09/2017 on lifelong xarelto. We discussed hypercoag workup will not affect management. She would like an answer though as to why she has had multiple DVT at such a young age. F/u after. Will repeat US. HISTORY OF PRESENT ILLNESS: This is a 38 year old female past medical history includes polycystic kidney disease. Past medical history includes history of multiple deep vein thrombus. She had a right leg DVT treated with heparin and warfarin for 6 months after delivery of a second child in 2006. She also has bilateral lower extremity venous insufficiency noted initially in 2018. She did have a second DVT in September 2017. Right posterior tibial vein and associated pattern setter veins. Follows with Dr. Bateman, vascular. She does exercise slightly 3 days a week and works a [employer] in [facility]. Medications as of September 2017 included only Xarelto. She is . No history of miscarriages. Her father has history of DVTs and is on chronic warfarin. July 30, 2019 LLE she has increased bruising and pain medial malleoli. cvs changes noted. Periods very heavy, she is considering IUD and wants hypercoag workup first. Vitals: BP 107/69 Pulse 61 Temp 36.9 ?C (98.4 ?F) (Oral) Resp 16 Ht 167.6 cm (5' 6 ) Wt 80.6 kg (177 lb 12.8 oz) SpO2 100% BMI 28.70 kg/m? Body mass index is 28.7 kg/m?. Body surface area is 1.94 meters squared. REVIEW OF SYSTEMS PHYSICAL EXAM ECOG PS: 0 NEGATIVES POSITIVES NEGATIVES POSITIVES GEN: fevers, sweats, chills. Overall feels well. GEN: Well appearing, alert, in no acute distress, appears stated age SKIN: lesions, rash, itching. SKIN: Normal color, texture, turgor, no rashes or lesions HEENT: significant headaches, changes in hearing, changes in vision, nose bleeds. ENT: No scleral icterus. NECK: Supple, no thyromegaly, no JVD. : dysuria, frequency or incontinence. LYMPH: No cervical, supraclavicular, axillary, inguinal adenopathy. RESP: dyspnea, cough, wheezing. LUNG: Clear to auscultation, no wheezing rales or rhonchi CARD: chest pain, leg swelling, palpitations. HEART: Regular. No murmurs, gallop, or rubs. No ectopy. GI: abdominal pain, nausea, vomiting, diarrhea, constipation, melena, hematochezia. ABDM: Soft. Non-tender. Non-distended. Bowel sounds normal. No masses. No hepatosplenomegaly. HEME: prolonged bleeding, bruising, adenopathy. EXT: No clubbing, cyanosis or edema. MUSC: joint pain or swelling. MUSC: No joint swelling, deformity, or tenderness. NEURO: syncope, seizures, peripheral numbness or tingling. BACK: No tenderness to palpation. No flank tenderness. MEDICATIONS: rivaroxaban (XARELTO) 20 mg tablet Take 20 mg by mouth once daily. cetirizine (ZYRTEC) 10 mg tablet Take 10 mg by mouth once daily. ferrous sulfate (IRON ORAL) Take 65 mg by mouth once daily. ALLERGIES: ALLERGIES Not on File PAST MEDICAL HISTORY Diagnosis Date - History of blood clots - Polycystic kidney disease No past surgical history on file. FAMILY HISTORY Problem Relation Age of Onset - Blood Clots Father - Blood Clots Brother SOCIAL HISTORY: Social History Tobacco Use - Smoking status: Never Smoker - Smokeless tobacco: Never Used Substance Use Topics - Alcohol use: Yes Comment: Socially - Drug use: Never COUNSELING: I discussed with Isabel the natural history, treated course, and prognosis of Acute deep vein thrombosis (dvt) of proximal vein of both lower extremities (hcc) (primary encounter diagnosis); my impression as well as the rationale, logistics, risks, benefits, and alternatives to the management options noted above; and my recommendations listed below. The patient Isabel Rivera verbalized understanding and agreed with these recommendations and plan. I answered all questions satisfactorily.. Ankit Hall D.O. Medical Oncologist [facility] [place], [place] Cc. Dr. Bateman. Normal [facility] Vital Signs Date Time Vital Sign Value Performing Clinician Facility 06-28-2023 16:00-0500 Body height 172.72 cm Maeve Moreno Other [facility] Other 06-28-2023 16:00-0500 Body mass index (BMI) [Ratio] 31.35 kg/m2 Maeve Moreno Other [facility] Other 06-28-2023 16:00-0500 Body temperature 97.3 [degF] Maeve Moreno Other [facility] Other 06-28-2023 16:00-0500 Body weight 93.53 kg Maeve Moreno Other [facility] Other 06-28-2023 16:00-0500 Diastolic blood pressure 87 mm[Hg] Maeve Moreno Other [facility] Other 06-28-2023 16:00-0500 Respiratory rate 18 /min Maeve Moreno Other [facility] Other 06-28-2023 16:00-0500 SaO2% (BldA) [Mass fraction] 98 % Maeve Moreno Other [facility] Other 06-28-2023 16:00-0500 Systolic blood pressure 141 mm[Hg] Maeve Moreno Other [facility] Other 04-05-2023 16:00-0400 Body height 172.72 cm Maeve Moreno Other [facility] Other 04-05-2023 16:00-0400 Body mass index (BMI) [Ratio] 31.23 kg/m2 Maeve Moreno Other [facility] Other 04-05-2023 16:00-0400 Body temperature 96.4 [degF] Maeve Moreno Other [facility] Other 04-05-2023 16:00-0400 Body weight 93.17 kg Maeve Moreno Other [facility] Other 04-05-2023 16:00-0400 Diastolic blood pressure 85 mm[Hg] Maeve Moreno Other [facility] Other 04-05-2023 16:00-0400 Respiratory rate 18 /min Maeve Moreno Other [facility] Other 04-05-2023 16:00-0400 SaO2% (BldA) [Mass fraction] 99 % Maeve Moreno Other [facility] Other 04-05-2023 16:00-0400 Systolic blood pressure 134 mm[Hg] Maeve Moreno Other [facility] Other 12-21-2022 17:00-0400 Body height 172.72 cm Maeve Moreno Other [facility] Other 12-21-2022 17:00-0400 Body mass index (BMI) [Ratio] 31.14 kg/m2 Maeve Moreno Other [facility] Other 12-21-2022 17:00-0400 Body temperature 96.5 [degF] Maeve Moreno Other [facility] Other 12-21-2022 17:00-0400 Body weight 92.9 kg Maeve Moreno Other [facility] Other 12-21-2022 17:00-0400 Diastolic blood pressure 84 mm[Hg] Maeve Moreno Other [facility] Other 12-21-2022 17:00-0400 Respiratory rate 18 /min Maeve Moreno Other [facility] Other 12-21-2022 17:00-0400 SaO2% (BldA) [Mass fraction] 98 % Maeve Moreno Other [facility] Other 12-21-2022 17:00-0400 Systolic blood pressure 138 mm[Hg] Maeve Moreno Other [facility] Other 09-28-2022 17:00-0500 Body height 172.72 cm Maeve Moreno Other [facility] Other 09-28-2022 17:00-0500 Body mass index (BMI) [Ratio] 31.11 kg/m2 Maeve Moreno Other [facility] Other 09-28-2022 17:00-0500 Body temperature 98.2 [degF] Maeve Moreno Other [facility] Other 09-28-2022 17:00-0500 Body weight 92.81 kg Maeve Moreno Other [facility] Other 09-28-2022 17:00-0500 Diastolic blood pressure 94 mm[Hg] Maeve Moreno Other [facility] Other 09-28-2022 17:00-0500 Respiratory rate 18 /min Maeev Moreno Other [facility] Other 09-28-2022 17:00-0500 SaO2% (BldA) [Mass fraction] 98 % Maeve Moreno Other [facility] Other 09-28-2022 17:00-0500 Systolic blood pressure 144 mm[Hg] Maeve oMreno Other [facility] Other 07-06-2022 17:00-0500 Body height 172.72 cm Maeve Moreno Other [facility] Other 07-06-2022 17:00-0500 Body mass index (BMI) [Ratio] 30.32 kg/m2 Maeve Moreno Other [facility] Other 07-06-2022 17:00-0500 Body temperature 97.1 [degF] Maeve Moreno Other [facility] Other 07-06-2022 17:00-0500 Body weight 90.45 kg Maeve Moreno Other [facility] Other 07-06-2022 17:00-0500 Diastolic blood pressure 87 mm[Hg] Maeve Moreno Other [facility] Other 07-06-2022 17:00-0500 Respiratory rate 18 /min Maeve Moreno Other [facility] Other 07-06-2022 17:00-0500 SaO2% (BldA) [Mass fraction] 99 % Maeve Moreno Other [facility] Other 07-06-2022 17:00-0500 Systolic blood pressure 128 mm[Hg] Maeve Moreno Other [facility] Other 03-23-2022 16:40-0400 Body height 172.72 cm Maeve Moreno Other [facility] Other 03-23-2022 16:40-0400 Body mass index (BMI) [Ratio] 30.47 kg/m2 Maeve Morneo Other [facility] Other 03-23-2022 16:40-0400 Body temperature 96.9 [degF] Maeve Moreno Other [facility] Other 03-23-2022 16:40-0400 Body weight 90.9 kg Maeve Moreno Other [facility] Other 03-23-2022 16:40-0400 Diastolic blood pressure 80 mm[Hg] Maeve Moreno Other [facility] Other 03-23-2022 16:40-0400 Respiratory rate 18 /min Maeve Moreno Other [facility] Other 03-23-2022 16:40-0400 SaO2% (BldA) [Mass fraction] 99 % Maeve Moreno Other [facility] Other 03-23-2022 16:40-0400 Systolic blood pressure 116 mm[Hg] Maeve Moreno Other [facility] Other 08-09-2021 17:00-0500 Body height 172.72 cm Maeve Moreno Other [facility] Other 08-09-2021 17:00-0500 Body mass index (BMI) [Ratio] 30.53 kg/m2 Maeve Moreno Other [facility] Other 08-09-2021 17:00-0500 Body weight 91.08 kg Maeve Moreno Other [facility] Other 08-09-2021 17:00-0500 Diastolic blood pressure 80 mm[Hg] Maeve Moreno Other [facility] Other 08-09-2021 17:00-0500 Respiratory rate 18 /min Maeve Sahnidank Other [facility] Other 08-09-2021 17:00-0500 SaO2% (BldA) [Mass fraction] 99 % Maeve Moreno Other [facility] Other 08-09-2021 17:00-0500 Systolic blood pressure 142 mm[Hg] Maeve Sahnidank Other [facility] Other Encounters Encounter Date Encounter Type Care Provider Facility Start: 06-28-2023 End: 06-28-2023 ambulatory Essam Elashi Other [facility] Other Start: 06-28-2023 Office outpatient vi sit 15 minutes Essam Elashi [facility] Start: 06-26-2023 End: 06-26-2023 ambulatory Essam Elashi Other [facility] Other Start: 06-26-2023 Telephone encounter Essam Elashi [facility] Start: 05-07-2023 End: 05-07-2023 ambulatory Essam Elashi Other [facility] Other Start: 05-07-2023 Telephone encounter Essam Elashi [facility] Start: 04-05-2023 End: 04-05-2023 ambulatory Sekouam Elashi Other [facility] Other Start: 04-05-2023 Office outpatient vi sit 25 minutes Essam Elashi [facility] Start: 03-27-2023 End: 03-27-2023 ambulatory Essam Elashi Other [facility] Other Start: 03-27-2023 Telephone encounter Essam Elashi [facility] Start: 03-12-2023 End: 03-12-2023 ambulatory Sekouam Elashi Other [facility] Other Start: 03-12-2023 Telephone encounter Essam Elashi [facility] Start: 12-21-2022 End: 12-21-2022 ambulatory Essam Elashi Other [facility] Other Start: 12-21-2022 Office outpatient vi sit 25 minutes Essam Elashi [facility] Start: 12-18-2022 End: 12-18-2022 ambulatory Essam Elashi Other [facility] Other Start: 12-18-2022 Telephone encounter Essam Elashi [facility] Start: 12-13-2022 End: 12-14-[address] MAEVE MORENO Facility:[facility] Start: 11-14-2022 End: 11-15-[address] MAREN JAMES . Facility:[facility] Start: 11-13-2022 Encounter for genera l adult medical examination without abnormal findings DR MAREN JAMES . [facility] Start: 11-10-2022 End: 11-11-[address] MAREN JAMES . Facility:[facility] Start: 11-10-2022 End: 11-11-2022 Encounter for general adult medical examination without abnormal findings DR MAREN JAMES . Facility:[facility] Start: 09-28-2022 End: 09-28-2022 ambulatory Maeve Moreno Other [facility] Other Start: 09-28-2022 Office outpatient vi sit 25 minutes Maeve Moreno [facility] Start: 09-26-2022 End: 09-27-[address] MAEVE MORENO Facility:[facility] Start: 07-06-2022 End: 07-06-2022 ambulatory Maeve Moreno Other [facility] Other Start: 07-06-2022 Office outpatient vi sit 25 minutes Maeve Moreno [facility] Start: 07-04-2022 End: 07-04-2022 ambulatory Maeve Moreno Other [facility] Other Start: 07-04-2022 Telephone encounter Maeve Moreno [facility] Start: 06-29-2022 End: 06-30-[address] MAEVE MORENO Facility:[facility] Start: 05-25-2022 End: 05-26-[address] MAEVE MORENO Facility:[facility] Start: 04-25-2022 End: 04-26-[address] MAEVE MORENO Facility:[facility] Start: 04-17-2022 End: 04-17-2022 ambulatory Maeve Moreno Other [facility] Other Start: 04-17-2022 Telephone encounter Maeve Sahnidank [facility] Start: 03-23-2022 End: 03-23-2022 ambulatory Maeve Sahnidank Other [facility] Other Start: 03-23-2022 Office outpatient vi sit 25 minutes Maeve Sahnidank [facility] Start: 03-22-2022 End: 03-23-[address] MAEVE MORENO Facility:[facility] Start: 02-06-2022 End: 02-07-[address] MAEVE MORENO Facility:[facility] Start: 01-13-2022 End: 01-14-[address] MAEVE MORENO [facility] Other Start: 01-13-2022 Telephone encounter Maeve Sahnidank [facility] Start: 10-04-2021 End: 10-04-2021 ambulatory Maeve Tiffanie Other [facility] Other Start: 10-04-2021 Telephone encounter Maeve Sahnidank [facility] Start: 09-14-2021 End: 09-14-2021 ambulatory Maeve Tiffanie Other [facility] Other Start: 09-14-2021 Telephone encounter Maeve Moreno [facility] Start: 08-09-2021 End: 08-09-2021 ambulatory Maeve Tiffanie Other [facility] Other Start: 08-09-2021 Office outpatient vi sit 25 minutes Maeve Moreno [facility] Start: 07-26-2021 End: 07-26-2021 ambulatory Maeve Moreno Other [facility] Other Start: 07-26-2021 Telephone encounter Maeve Sahnidank [facility] Start: 09-28-2020 End: 09-28-2020 ambulatory Maeve Sahnidank Other [facility] Other Start: 09-28-2020 Telephone encounter Maeve Moreno [facility] Payers Date Payer Category Payer Unknown [id number] 2.16.84 [id number] 1980 Unknown [id number] 2.16.84 [id number] 1981 Unknown [id number] 2.16.84 [id number] 1981 Unknown [id number] 2.16.84 [id number] 1981 Unknown [id number] 2.16.84 [id number] 1981 Unknown [id number] 2.16.84 [id number] 1981 Unknown [id number] 2.16.84 [id number] 1981 Unknown [id number] 2.16.84 [id number] 1981 Unknown [id number] 2.16.84 [id number] 1981 Unknown [id number] 2.16.84 [id number] 1958 Private Health Insurance [id number] Social History Date Type Detail Facility Unknown if ever smoked [facility] Other Sex Assigned At Sex Assigned At Bir th [facility] Other Clinical Notes 09-28-2020 to 06-28-2023 Note Date & Type Note Facility 06-28-2023 Evaluation note Encounter Date Diagnosis Assessment Notes Jun, 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 liver function panel was monitored monthly and she has normal AST and ALT. creatinine has increased from 1.3 mg/dL and 2020 up to 1.8 mg/dL immedialtly after starting Jynarque but has been stable after that. Patient has a very large cyst on the CT scan of the abdomen with very aggressive polycystic kidney disease and decline of renal function is expected however Jynarque is supposed to slow the decline of renal function. She completed monitoring LFTs monthly for total 18 months and now being monitoring every 3-month started 2021 per manufacture recommendation. She was informed that they may need DISPENSING OPERATOR in near future. Will refer to transplant evaluation once GFR < 20 ml/min. She does not have a donor Jun, CKD (chronic kidney disease) stage 4, GFR 15-29 ml/min (ICD-10 - N18.4) Renal function has been quite variable since she was started on Jynarque. Currently creatinine 2.2 mg/dL, it has been variable between 1.6 to 2 mg/dL over the last year according to volume status and state of hydration. Patient was advised to increase water intake since she is expected to have more urine output with tolvaptan. Monitor renal panel every 3 months and adjust medications as indicated. Currently she has normal hemoglobin with no RADHA. She has normal calcium, phosphorus and intact PTH. Jun, Factor V Leiden (ICD-10 - D68.51) Patient has been on Xarelto for factor V. Leiden mutation. She has no recent blood clots. She has no bleeding events or hematuria. Jun, Elevated blood pressure (ICD-10 - R03.0) Repeat blood pressure in my office was 118/82. She has sphygmomanometer at home and home blood pressure monitor showed systolic blood pressure between 120s with some readings 130s. We will continue low-salt diet and will start SAURABH inhibitors if systolic blood pressure persistently more than 140s. She has no proteinuria. 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 liver function panel was monitored monthly and she has normal AST and ALT. creatinine has increased from 1.3 mg/dL and 2020 up to 1.8 mg/dL immedialtly after starting Jynarque but has been stable after that. Patient has a very large cyst on the CT scan of the abdomen with very aggressive polycystic kidney disease and decline of renal function is expected however Jynarque is supposed to slow the decline of renal function. She completed monitoring LFTs monthly for total 18 months and now being monitoring every 3-month started 2021 per manufacture recommendation. She was informed that they may need DISPENSING OPERATOR in near future. Will refer to transplant evaluation once GFR < 20 ml/min. She does not have a donor Mar, CKD (chronic kidney disease) stage 4, GFR 15-29 ml/min (ICD-10 - N18.4) Renal function has been quite variable since she was started on Jynarque. Currently creatinine 2.2 mg/dL, it has been variable between 1.6 to 2 mg/dL over the last year according to volume status and state of hydration. Patient was advised to increase water intake since she is expected to have more urine output with tolvaptan. Monitor renal panel every 3 months and adjust medications as indicated. Currently she has normal hemoglobin with no RADHA. She has normal calcium, phosphorus and intact PTH. Mar, Factor V Leiden (ICD-10 - D68.51) Patient has been on Xarelto for factor V. Leiden mutation. She has no recent blood clots. She has no bleeding events or hematuria. Mar, Elevated blood pressure (ICD-10 - R03.0) Blood pressure quite variable however today is within normal range. She monitor home blood pressure and it is mostly controlled. She has edema mainly related to varicose veins. We will continue low-salt diet and will start SAURABH inhibitors if systolic blood pressure persistently more than 40s. She has no proteinuria. 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 liver function panel was monitored monthly and she has normal AST and ALT.creatinine has increased from 1.3 mg/dL and 2020 up to 1.8 mg/dL immedialtly after starting Jynarque but has been stable after that. Patient has a very large cyst on the CT scan of the abdomen with very aggressive polycystic kidney disease and decline of renal function is expected however hopefully Jynarque is supposed to slow the decline of renal function. She completed monitoring LFTs monthly for total 18 months and now being monitoring every 3-month started 2021 per manufacture recommendation. She was informed that they may need DISPENSING OPERATOR in near future. Will refer to transplant evaluation once GFR < 20 ml/min. She does not have a donor December, CKD (chronic kidney disease) stage 4, GFR 15-29 ml/min (ICD-10 - N18.4) Renal function has been quite variable since she was started on tolvaptan. Currently creatinine 2.1 mg/dL, it has been variable between 1.6 to 2 mg/dL over the last year according to volume status and state of hydration. Patient was advised to increase water intake since she is expected to have more urine output with tolvaptan. Monitor renal panel every 3 months and adjust medications as indicated. Currently she has normal hemoglobin with no RADHA. She has normal calcium, phosphorus and intact PTH. December, Factor V Leiden (ICD-10 - D68.51) Patient has been on Xarelto for factor V. Leiden mutation. She has no recent blood clots. She has no bleeding events or hematuria. December, Elevated blood pressure (ICD-10 - R03.0) Blood pressure has been slightly elevated in the 140s range previous office visits however the patient stated that she has sphygmomanometer and blood pressure at home 120s over 80s. She has mild edema that has been stable. She does not take any medications for blood pressure. We will continue to hold diet and will start SAURABH inhibitors if systolic blood pressure persistently more than 140s. She has no proteinuria. [facility] Other 02-09-2023 Evaluation note* Encounter Date Diagnosis Assessment Notes Treatment Notes Treatment Clinical Notes Sep, 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 liver function panel was monitored monthly and she has normal AST and ALT.creatinine has slightly increased from 1.3 mg/dL and 2020 up to 1.8 mg/dL after starting Jynarque elevated has been stable after that. Patient has a very large cyst on the CT scan of the abdomen with very aggressive polycystic kidney disease and decline of renal function is expected however hopefully Jynarque is supposed to slow the decline of renal function. She completed monitoring LFTs monthly for total 18 months and will start monitoring every 3-month from 2021 per manufacture recommendation. She was informed that they may need DISPENSING OPERATOR in near future. Will refer to transplant evaluation once GFR < 20 ml/min. She does not have a donor Sep, CKD (chronic kidney disease) stage 4, GFR 15-29 ml/min (ICD-10 - N18.4) Renal function has been quite variable since she was started on tolvaptan. Currently creatinine 2 mg/dL, it has been variable between 1.6 to 2 mg/dL over the last year according to volume status and state of hydration. Patient was advised to increase water intake since she is expected to have more urine output with tolvaptan. Monitor renal panel every 3 months and adjust medications as indicated. Currently she has normal hemoglobin with no RADHA. She has normal calcium, phosphorus and intact PTH. Sep, Factor V Leiden (ICD-10 - D68.51) Patient has been on Xarelto for factor V. Leiden mutation. She has no recent blood clots. She has no bleeding events or hematuria. Sep, Elevated blood pressure (ICD-10 - R03.0) Blood pressure is elevated in my office 140 is 140 systolic. She never had elevated blood pressure before. Patient was advised to check home blood pressure and keep records. We will start SAURABH inhibitor if systolic blood pressure still more than 130s. She will call our office if blood pressure is elevated more than 130s at home otherwise she will come and 12 weeks to check blood pressure at my office. [facility] Other 11-17-2022 Evaluation note* Encounter Date Diagnosis Assessment Notes Treatment Notes Treatment Clinical Notes Jun, 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 liver function panel was monitored monthly and she has normal AST and ALT.creatinine has slightly increased from 1.3 mg/dL and 2020 up to 1.8 mg/dL after starting Jynarque elevated has been stable after that. Patient has a very large cyst on the CT scan of the abdomen with very aggressive polycystic kidney disease and decline of renal function is expected however hopefully Jynarque is supposed to slow the decline of renal function. She completed monitoring LFTs monthly for total 18 months and will start monitoring every 3-month from 2021 per manufacture recommendation. She was informed that they may need DISPENSING OPERATOR in near future. Will refer to transplant evaluation once GFR < 20 ml/min. She does not have a donor Jun, CKD (chronic kidney disease) stage 4, GFR 15-29 ml/min (ICD-10 - N18.4) Renal function has been quite variable since she was started on tolvaptan. Currently creatinine 2 mg/dL, it has been variable between 1.6 to 2 mg/dL over the last year according to volume status and state of hydration. Patient was advised to increase water intake since she is expected to have more urine output with tolvaptan. Monitor renal panel every 3 months and adjust medications as indicated. Currently she has normal hemoglobin with no RADHA. She has normal calcium, phosphorus and intact PTH. Jun, Factor V Leiden (ICD-10 - D68.51) Patient has been on Xarelto for factor V. Leiden mutation. She has no recent blood clots. She has no bleeding events or hematuria. [facility] Other 08-04-2022 Evaluation note* Encounter Date Diagnosis Assessment Notes Treatment Notes Treatment Clinical Notes Mar, 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 liver function panel is being monitored monthly and she has normal AST and ALT. Renal function slowly declining with GFR currently 27 mL/min which could be partially related to volume depletion since she has polyuria and she is not able to drink enough with her work. Patient has a very large cyst on the CT scan of the abdomen with very aggressive polycystic kidney disease and decline of renal function is expected however hopefully Jynarque is supposed to slow the decline of renal function. Will continue monitor LFTs monthly for total 18 months till 2021 then every 3 months per manufacture recommendation. She has standing order for labs every month. Considering the rapid decline in renal function, She was informed that they may need DISPENSING OPERATOR in near future. Will refer to transplant evaluation once GFR < 20 ml/min. She does not have a donor Mar, CKD (chronic kidney disease) stage 4, GFR 15-29 ml/min (ICD-10 - N18.4) Renal function has been quite variable since she was started on tolvaptan. Currently creatinine 2 mg/dL, it has been variable between 1.6 to 2 mg/dL over the last year according to volume status and state of hydration. Patient was advised to increase water intake since she is expected to have low urine output with tolvaptan.Monitor renal panel every 3 months and adjust medications as indicated. Currently she has normal hemoglobin with no RADHA. She has normal calcium, phosphorus and intact PTH. Mar, Factor V Leiden (ICD-10 - D68.51) Patient has been on Xarelto for factor V. Leiden mutation. She has no recent blood clots. She has no bleeding events or hematuria. [facility] Other 05-27-2022 Evaluation note* Encounter Date Diagnosis Assessment Notes Treatment Notes Treatment Clinical Notes December, Polycystic dysplastic kidney (ICD-10 - Q61.3) December, CKD (chronic kidney disease) stage 2, GFR 60-89 ml/min (ICD-10 - N18.2) December, Factor V Leiden (ICD-10 - D68.51) [facility] Other 02-09-2021 Evaluation note* Encounter Date Diagnosis Assessment Notes Treatment Notes Treatment Clinical Notes Sep, Polycystic dysplastic kidney (ICD-10 - Q61.3) [facility] Other [facility] Other Evaluation noteNo InformationNort [facility] Other [facility] [place] [facility] Narrative - Reported* Type Description Date Medical History PCOS Medical History previous blood clot in leg X 2 Medical History CAPILLARY HEMANGIOMA Medical History FACTOR V LEIDEN MUTATION Surgical History WISDOM TEETH X4 Hospitalization History CHILD X 2 Hospitalization History BLOOD CLOT [facility] Other [facility] Narrative - Reported* Type Description Date Medical History PCOS Medical History previous blood clot in leg X 2 Medical History CAPILLARY HEMANGIOMA Medical History FACTOR V LEIDEN MUTATION Surgical History WISDOM TEETH X4 Surgical History EVLT ON RIGHT LEG Hospitalization History CHILD X 2 Hospitalization History BLOOD CLOT [facility] Other Summary Purpose Family History No Family History Records FoundNo Family History Records Found Advance Directives No Advanced Directives Records FoundNo Advanced Directives Records Found Additional Source Comments INFORMATION SOURCE (unrecogn ized section and content) DATE CREATED AUTHOR 09/06/2019 [facility] DATE CREATED AUTHOR AUTHOR'S ORGANIZ ATION 12/17/2022 [facility] REASON FOR VISIT (unrecogniz ed section and content) ClinicalPRIOR AUTH / REFILL / BRIDGE RXPRIOR AUTH JYNARQUENo InformationRENAL 5 month Follow up ADSPKD, on JYNARQUEJYNARQUERENAL 3 month Follow up ADSPKD, on JYNARQUEMED REFILLRENAL 3 month Follow up ADSPKD, on JYNARQUEREFILLRENAL 3 month Follow up ADSPKD, on JYNARQUEClinicalBRIDGE RX JYNARQUERENAL 3 month Follow up ADSPKD, on JYNARQUERefillsPharmacy ChangeRENAL 3 month Follow up ADSPKD, on 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 JYNARQUE FOR RECORDS PERTAINING TO PATIENTS WHO ARE OR HAVE BEEN ENROLLED IN A CHEMICAL DEPENDENCY/SUBSTANCEABUSE PROGRAM, SOME INFORMATION MAY BE OMITTED. This clinical summary was aggregated from multiple sources. Caution should be exercised in using it in the provision of clinical care. This summary normalizes information from multiple sources, and as a consequence, information in this document may materially change the coding, format and clinical context of patient data. In addition, data may be omitted in some cases. CLINICAL DECISIONS SHOULD BE BASED ON THE PRIMARY CLINICAL RECORDS. [employer] [facility]. provides no warranty or guarantee of the accuracy or completeness of information in this document.
== END 2023-07-11 09:28 | disposition home or self-care (01) ==
LOC: VC 09:27
PROVIDERS: PCP Radiology Diagnostic Radiology; Visit Provider Radiology Diagnostic Radiology
DX: I80.02 Phlebitis and thrombophlebitis of superficial vessels of left lower extremity (principal)
CPT/HCPCS: 93971; G0463

== ENCOUNTER 2023-07-17 15:06 | Outpatient (OUT) | payer OTHER, SELFPAY ==
--- NOTE | 2023-07-17 15:07 | VEIN_ITS ---
[address] [address] Patient Name: BRYON BROCK MRN: [id number] date: 1980 Sex: F Assigned Patient Location: Current Patient Location: Accession/Order Number: [id number] Exam Date: 07/17/2023 15:05 Report Date: 07/17/2023 16:02 At the request of: CODY MCNEIL Procedure: VC INJ Sclerosing SOLMULT Vein EXAMINATION: VC INJ Sclerosing SOLMULT Vein HISTORY: Pain due to varicose veins of bilateral legs I83.813 The risks and benefits of the procedure were explained at length to the patient and informed written consent was obtained. The procedure was performed under sterile technique. The patient's leg was wrapped with Coban and postprocedural verbal and written instructions provided. Hermilo Haines RN was present and assisted. SCLEROSANT: 2mL 0.5% Polidocanol. VEIN(S) INJECTED: 18 veins in the right. VISUALIZATION: Ultrasound was not used to visualize the sclerosant. ANESTHESIA: Supercooled air. COMPLICATIONS: None. Electronically authenticated by: RAY HUBER Date: 07/17/2023 16:02
== END 2023-07-17 15:07 | disposition home or self-care (01) ==
LOC: VC 15:06
PROVIDERS: PCP Radiology Diagnostic Radiology; Visit Provider Radiology Diagnostic Radiology
DX: I83.813 Varicose veins of bilateral lower extremities with pain (principal)
CPT/HCPCS: 36471

== ENCOUNTER 2023-08-16 14:54 | Outpatient (OUT) | payer OTHER, SELFPAY ==
--- NOTE | 2023-08-16 14:56 | VEIN_ITS ---
[address] [address] Patient Name: BRYON BROCK MRN: [id number] date: 1980 Sex: F Assigned Patient Location: Current Patient Location: Accession/Order Number: [id number] Exam Date: 08/16/2023 15:00 Report Date: 08/16/2023 16:24 At the request of: CODY MCNEIL Procedure: VC INJ Sclerosing SOLMULT Vein EXAMINATION: VC INJ Sclerosing SOLMULT Vein HISTORY: I83.813 Bilateral painful varicose veins The risks and benefits of the procedure were explained at length to the patient and informed written consent was obtained. The procedure was performed under sterile technique. The patient's leg was wrapped with Coban and postprocedural verbal and written instructions provided. Hermilo Haines RN was present and assisted. SCLEROSANT: 2mL 0.5% Polidocanol. VEIN(S) INJECTED: 16 veins in the right leg. VISUALIZATION: Ultrasound was not used to visualize the sclerosant. ANESTHESIA: Supercooled air. COMPLICATIONS: None. Electronically authenticated by: RAY HUBER Date: 08/16/2023 16:24
--- OUTSIDE RECORDS SUMMARY | 2023-08-16 14:58 | XMS_ITS | CCD ---
Author Name Unknown Address [address] [place] [address] Organization [facility] Care Team Providers Care Climatology Professor Name Role Phone Maeve Moreno Unavailable DR [...] Sulfonamides (Antibiotic) Propensity to adverse reactions rash [facility] Other Medications Current Medications Medication Drug Class(es) [...] Results Test Name Value Interpretation Reference Range Facility PTH INTACTon 12-15-2022 PTH, Intact 65 pg/mL Normal 15-65 [facility] Comment on above: Performed By: #### L IPID, CMP, TSH, T7 #### [facility] [address] [address] [address] Jessica Mosqueda HEMOGRAM AND PLATELon 2022 Hematocrit (Bld) [Volume fraction] 41.0 % Normal 36.0-48.0 [facility] Comment on above: Performed By: #### H H #### [facility] [address] [place] [address] Dr. Jessica Mosqueda Hemoglobin (Bld) [Mass/Vol] 13.0 g/dL Normal 12.0-16.0 [facility] Comment on above: Performed By: #### H H #### [facility] [address] [place] [address] Dr. Jessica Mosqueda MCH (RBC) [Entitic mass] 28.6 pg Normal 26.7-34.0 [facility] Comment on above: Performed By: #### H H #### [facility] [address] [place] [address] Dr. Jessica Mosqueda MCHC (RBC) [Mass/Vol] 31.7 g/dL Normal 29.9-35.2 [facility] Comment on above: Performed By: #### H H #### [facility] [address] [place] [address] Dr. Jessica Mosqueda MCV (RBC) [Entitic vol] 90.3 fL Normal 81.0-99.0 [facility] Comment on above: Performed By: #### H H #### [facility] [address] [place] [address] Dr. Jessica Mosqueda PLT 133 103/ul Critically low 150-450 [facility] Comment on above: Performed By: #### H H #### [facility] [address] [place] [address] Dr. Jessica Mosqueda RBC 4.54 106/ul Normal 4.20-5.40 [facility] Comment on above: Performed By: #### H H #### [facility] [address] [place] [address] Dr. Jessica Mosqueda WBC 9.0 103/ul Normal 4.0-11.0 [facility] Comment on above: Performed By: #### H H #### [facility] [address] [place] [address] Dr. Jessica Mosqueda PHOSPHORUSon 12-13-2022 Phosphate [Mass/Vol] 4.3 mg/dL Normal 2.6-4.7 [facility] Comment on above: Performed By: #### P THINT #### [facility] [address] [place] [address] Dr. Jessica Mosqueda PROF 14(COMP METB)on 023 Albumin [Mass/Vol] 3.8 g/dL Normal 3.4-5.0 [facility] Comment on above: Performed By: #### P THINT #### [facility] [address] [place] [address] Dr. Jessica Mosqueda Albumin/Globulin [Mass ratio] 1.1 {ratio} Normal [facility] Comment on above: Performed By: #### P THINT #### [facility] [address] [place] [address] Dr. Jessica Mosqueda ALP [Catalytic activity/Vol] 36 U/L Critically low 46-116 [facility] Comment on above: Performed By: #### P THINT #### [facility] [address] [place] [address] Dr. Jessica Mosqueda ALT [Catalytic activity/Vol] 14 U/L Normal 14-59 [facility] Comment on above: Performed By: #### P THINT #### [facility] [address] [place] [address] Dr. Jessica Mosqueda Anion gap [Moles/Vol] 11.9 mmol/L Normal [facility] Comment on above: Performed By: #### P THINT #### [facility] [address] [place] [address] Dr. Jessica Mosqueda AST [Catalytic activity/Vol] 13 U/L Critically low 15-37 [facility] Comment on above: Performed By: #### P THINT #### [facility] [address] [address] [address] Jessica Mosqueda Bilirubin [Mass/Vol] 0.3 mg/dL Normal 0.2-1.0 [facility] Comment on above: Performed By: #### P THINT #### [facility] [address] [address] [address] Jessica Mosqueda Calcium [Mass/Vol] 9.0 mg/dL Normal 8.5-10.1 [facility] Comment on above: Performed By: #### P THINT #### [facility] [address] [address] [address] Jessica Mosqueda Chloride [Moles/Vol] 107 mmol/L Normal 98-107 [facility] Comment on above: Performed By: #### P THINT #### [facility] [address] [address] [address] Jessica Mosqueda CO2 [Moles/Vol] 28.1 mmol/L Normal 21.0-32.0 [facility] Comment on above: Performed By: #### P THINT #### [facility] [address] [place] [address] Dr. Jessica Mosqueda Creatinine [Mass/Vol] 2.10 mg/dL Critically high 0.55-1.02 [facility] Comment on above: Performed By: #### P THINT #### [facility] [address] [place] [address] Dr. Jessica Mosqueda EGFR-AF CYPRIOT 31 mL/min/1.73m2 Critically low >=60 [facility] Comment on above: Performed By: #### P THINT #### [facility] [address] [address] [address] Jessica Mosqueda EGFR-NON AF CYPRIOT 26 mL/min/1.73m2 Critically low >=60 [facility] Comment on above: Performed By: #### P THINT #### [facility] [address] [place] [address] Dr. Jessica Mosqueda Globulin (S) [Mass/Vol] 3.6 g/dL Normal [facility] Comment on above: Performed By: #### P THINT #### [facility] [address] [address] [address] Jessica Mosqueda Glucose [Mass/Vol] 82 mg/dL Normal 74-106 [facility] Comment on above: Performed By: #### P THINT #### [facility] [address] [place] [address] Dr. Jessica Mosqueda Potassium [Moles/Vol] 4.0 mmol/L Normal 3.5-5.1 [facility] Comment on above: Performed By: #### P THINT #### [facility] [address] [place] [address] Dr. Jessica Mosqueda Protein [Mass/Vol] 7.4 g/dL Normal 6.4-8.2 [facility] Comment on above: Performed By: #### P THINT #### [facility] [address] [address] [address] Jessica Mosqueda Sodium [Moles/Vol] 143 mmol/L Normal 136-145 [facility] Comment on above: Performed By: #### P THINT #### [facility] [address] [place] [address] Dr. Jessica Mosqueda Urea nitrogen [Mass/Vol] 23.0 mg/dL Critically high 7.0-18.0 [facility] Comment on above: Performed By: #### P THINT #### [facility] [address] [place] [address] Dr. Jessica Mosqueda Urea nitrogen/Creatinine [Mass ratio] 11.0 mg/mg Normal [facility] Comment on above: Performed By: #### P THINT #### [facility] [address] [place] [address] Dr. Jessica Moqsueda MG MAMM SCREEN 3D MATILDA CADon 11-14-2022 MG MAMM SCREEN 3D MATILDA CAD Patient: ISABEL RIVERA Exam Date: 11/14/2022 : 1980 Gender:F Ordering : DR MAREN JAMES . Admission #: [id number] Family : Order #: [id number] CLICK HERE TO VIEW EXAM RADIOLOGY REPORT [...] unknown cancer at age 51. LOCATION: [facility] BREAST COMPOSITION: Extremely dense, which lowers [...] PALPABLE LUMP SHOULD BE BIOPSIED. Dictated by: Jonathon Wyatt M.D. on 11/15/2022 at 07:43 Approved by: Jonathon Wyatt M.D. on 11/15/2022 at 07:51 Normal [facility] INSULINon 11-11-2022 Insulin 7.2 uIU/mL Normal 2.6-24.9 [facility] Comment on above: Performed By: #### I NSULIN #### [facility] [address] [place] [address] Dr. Jessica Mosqueda CBC AUTO DIFFon 11-10-2022 BASO # 0.0 103/ul Normal 0.0-0.1 [facility] Comment on above: Performed By: #### L IPID, CMP, TSH, T7 #### [facility] [address] [address] [address] Jessica Mosqueda Basophils/100 WBC (Bld) 0.5 % Normal 0.2-2.0 [facility] Comment on above: Performed By: #### L IPID, CMP, TSH, T7 #### [facility] [address] [address] [address] Jessica Mosqueda EO # 0.3 103/ul Normal 0.0-0.7 [facility] Comment on above: Performed By: #### L IPID, CMP, TSH, T7 #### [facility] [address] [place] [address] Dr. Jessica Mosqueda Eosinophils/100 WBC (Bld) 3.6 % Normal 0.9-7.0 [facility] Comment on above: Performed By: #### L IPID, CMP, TSH, T7 #### [facility] [address] [place] [address] Dr. Jessica Mosqueda Erythrocyte distribution width (RBC) [Ratio] 13.2 % Normal 11.0-15.0 [facility] Comment on above: Performed By: #### L IPID, CMP, TSH, T7 #### [facility] [address] [place] [address] Dr. Jessica Mosqueda Hematocrit (Bld) [Volume fraction] 41.9 % Normal 36.0-48.0 [facility] Comment on above: Performed By: #### L IPID, CMP, TSH, T7 #### [facility] [address] [place] [address] Dr. Jessica Mosqueda Hemoglobin (Bld) [Mass/Vol] 13.3 g/dL Normal 12.0-16.0 [facility] Comment on above: Performed By: #### L IPID, CMP, TSH, T7 #### [facility] [address] [place] [address] Dr. Jessica Mosqueda IG # 0.02 10e3/ul Normal 0.00-0.03 [facility] Comment on above: Performed By: #### L IPID, CMP, TSH, T7 #### [facility] [address] [place] [address] Dr. Jessica Mosqueda IG % 0.3 % Normal 0.0-0.5 [facility] Comment on above: Performed By: #### L IPID, CMP, TSH, T7 #### [facility] [address] [place] [address] Dr. Jessica Mosqueda LYMPH # 2.2 103/ul Normal 1.2-3.8 [facility] Comment on above: Performed By: #### L IPID, CMP, TSH, T7 #### [facility] [address] [place] [address] Dr. Jessica Mosqueda Lymphocytes/100 WBC (Bld) 29.6 % Normal 20.5-60.0 [facility] Comment on above: Performed By: #### L IPID, CMP, TSH, T7 #### [facility] [address] [address] [address] Jessica Mosqueda MANUAL DIFF REQ NO Normal [facility] Comment on above: Performed By: #### L IPID, CMP, TSH, T7 #### [facility] [address] [place] [address] Dr. Jessica Mosqueda MCH (RBC) [Entitic mass] 28.9 pg Normal 26.7-34.0 [facility] Comment on above: Performed By: #### L IPID, CMP, TSH, T7 #### [facility] [address] [place] [address] Dr. Jessica Mosqueda MCHC (RBC) [Mass/Vol] 31.7 g/dL Normal 29.9-35.2 [facility] Comment on above: Performed By: #### L IPID, CMP, TSH, T7 #### [facility] [address] [place] [address] Dr. Jessica Mosqueda MCV (RBC) [Entitic vol] 91.1 fL Normal 81.0-99.0 [facility] Comment on above: Performed By: #### L IPID, CMP, TSH, T7 #### [facility] [address] [place] [address] Dr. Jessica Mosqueda MONO # 0.5 103/ul Normal 0.3-0.8 [facility] Comment on above: Performed By: #### L IPID, CMP, TSH, T7 #### [facility] [address] [place] [address] Dr. Jessica Mosqueda Monocytes/100 WBC (Bld) 6.1 % Normal 1.7-12.0 [facility] Comment on above: Performed By: #### L IPID, CMP, TSH, T7 #### [facility] [address] [place] [address] Dr. Jessica Mosqueda NEUT # 4.4 103/ul Normal 1.4-6.5 [facility] Comment on above: Performed By: #### L IPID, CMP, TSH, T7 #### [facility] [address] [address] [address] Jessica Mosqueda Neutrophils/100 WBC (Bld) 59.9 % Normal 43.0-75.0 [facility] Comment on above: Performed By: #### L IPID, CMP, TSH, T7 #### [facility] [address] [address] [address] Jessica Mosqueda Platelet mean volume (Bld) [Entitic vol] 12.5 fL Normal 9.5-13.5 [facility] Comment on above: Performed By: #### L IPID, CMP, TSH, T7 #### [facility] [address] [place] [address] Dr. Jessica Mosqueda PLT 157 103/ul Normal 150-450 [facility] Comment on above: Performed By: #### L IPID, CMP, TSH, T7 #### [facility] [address] [place] [address] Dr. Jessica Mosqueda RBC 4.60 106/ul Normal 4.20-5.40 [facility] Comment on above: Performed By: #### L IPID, CMP, TSH, T7 #### [facility] [address] [place] [address] Dr. Jessica Mosqueda WBC 7.3 103/ul Normal 4.0-11.0 [facility] Comment on above: Performed By: #### L IPID, CMP, TSH, T7 #### [facility] [address] [place] [address] Dr. Jessica Mosqueda FREE THYROXINE INDEX T7on FTI 2.51 Normal 1.30-4.50 [facility] Comment on above: Performed By: #### L IPID, CMP, TSH, T7 #### [facility] [address] [place] [address] Dr. Jessica Mosqueda T3U 38.0 % Normal 30.0-39.0 [facility] Comment on above: Performed By: #### L IPID, CMP, TSH, T7 #### [facility] [address] [address] [address] Jessica Mosqueda T4 [Mass/Vol] 6.60 ug/dL Normal 4.80-13.90 [facility] Comment on above: Performed By: #### L IPID, CMP, TSH, T7 #### [facility] [address] [address] [address] Jessica Mosqueda GLYCOHEMOGLOBIN A1Con 2022 ADA RECOMMENDATION SEE BELOW Normal [facility] Comment on above: Result Comment: ADA RECOMMENDED LIMIT 4.0 - 6.0 ADA THERAPEUTIC TARGET < 7.0 ACTION SUGGESTED > 7.0 Performed By: #### P THINT #### [facility] [address] [address] [address] Jessica Mosqueda Glucose [Mass/Vol] 111 mg/dL Normal [facility] Comment on above: Performed By: #### P THINT #### [facility] [address] [address] [address] Jessica Mosqueda HbA1c (Bld) [Mass fraction] 5.5 % Normal 4.5-6.2 [facility] Comment on above: Performed By: #### P THINT #### [facility] [address] [address] [address] Jessica Mosqueda IRONon 11-10-2022 Iron [Mass/Vol] 58.0 ug/dL Normal 50.0-170.0 [facility] Comment on above: Performed By: #### P THINT #### [facility] [address] [place] [address] Dr. Jessica Mosqueda LIPID PROFILEon 11-10-2022 CHOL-HDL RATIO NORM SEE BELOW Normal [facility] Comment on above: Result Comment: 3.3 - 4.4 LOW RISK 4.4 - 7.1 AVERAGE RISK 7.1 - 11.0 MODERATE RISK >11.0 HIGH RISK Performed By: #### L IPID, CMP, TSH, T7 #### [facility] [address] [address] [address] Jessica Mosqueda Cholesterol [Mass/Vol] 205 mg/dL Critically high <=200 [facility] Comment on above: Performed By: #### L IPID, CMP, TSH, T7 #### [facility] [address] [address] [address] Jessica Mosqueda Cholesterol in HDL [Mass/Vol] 60 mg/dL Normal 40-60 [facility] Comment on above: Performed By: #### L IPID, CMP, TSH, T7 #### [facility] [address] [address] [address] Jessica Mosqueda Cholesterol in LDL [Mass/Vol] 127.4 mg/dL Normal [facility] Comment on above: Performed By: #### L IPID, CMP, TSH, T7 #### [facility] [address] [address] [address] Jessica Mosqueda Cholesterol.total/Cho lesterol in HDL [Mass ratio] 3.4 {ratio} Normal [facility] Comment on above: Performed By: #### L IPID, CMP, TSH, T7 #### [facility] [address] [address] [address] Jessica Mosqueda HDL NORMAL > or = 60 mg/dl - LOW CARDIOVASCULAR RISK <40 mg/dl - HIGH CARDIOVASCULAR RISK Normal [facility] Comment on above: Performed By: #### L IPID, CMP, TSH, T7 #### [facility] [address] [address] [address] Jessica Mosqueda LDL CALC NORMAL SEE BELOW Normal [facility] Comment on above: Result Comment: <100 mg/dl OPTIMAL 100 - 129 mg/dl NEAR OR ABOVE OPTIMAL 130 - 159 mg/dl BORDERLINE HIGH 160 - 189 mg/dl HIGH >190 mg/dl VERY HIGH Performed By: #### L IPID, CMP, TSH, T7 #### [facility] [address] [address] [address] Jessica Mosqueda Triglyceride [Mass/Vol] 88 mg/dL Normal <=150 [facility] Comment on above: Performed By: #### L IPID, CMP, TSH, T7 #### [facility] [address] [address] [address] Jessica Mosqueda VLDL CALC 17.6 mg/dL Normal [facility] Comment on above: Performed By: #### L IPID, CMP, TSH, T7 #### [facility] [address] [address] [address] Jessica Mosqueda PROF 14(COMP METB)on 023 Albumin [Mass/Vol] 3.8 g/dL Normal 3.4-5.0 [facility] Comment on above: Performed By: #### L IPID, CMP, TSH, T7 #### [facility] [address] [place] [address] Dr. Jessica Mosqueda Albumin/Globulin [Mass ratio] 1.1 {ratio} Normal [facility] Comment on above: Performed By: #### L IPID, CMP, TSH, T7 #### [facility] [address] [place] [address] Dr. Jessica Mosqueda ALP [Catalytic activity/Vol] 37 U/L Critically low 46-116 [facility] Comment on above: Performed By: #### L IPID, CMP, TSH, T7 #### [facility] [address] [place] [address] Dr. Jessica Mosqueda ALT [Catalytic activity/Vol] 16 U/L Normal 14-59 [facility] Comment on above: Performed By: #### L IPID, CMP, TSH, T7 #### [facility] [address] [place] [address] Dr. Jessica Mosqueda Anion gap [Moles/Vol] 13.7 mmol/L Normal [facility] Comment on above: Performed By: #### L IPID, CMP, TSH, T7 #### [facility] [address] [place] [address] Dr. Jessica Mosqueda AST [Catalytic activity/Vol] 14 U/L Critically low 15-37 [facility] Comment on above: Performed By: #### L IPID, CMP, TSH, T7 #### [facility] [address] [place] [address] Dr. Jessica Mosqueda Bilirubin [Mass/Vol] 0.4 mg/dL Normal 0.2-1.0 [facility] Comment on above: Performed By: #### L IPID, CMP, TSH, T7 #### [facility] [address] [address] [address] Jessica Mosqueda Calcium [Mass/Vol] 9.6 mg/dL Normal 8.5-10.1 [facility] Comment on above: Performed By: #### L IPID, CMP, TSH, T7 #### [facility] [address] [address] [address] Jessica Mosqueda Chloride [Moles/Vol] 107 mmol/L Normal 98-107 [facility] Comment on above: Performed By: #### L IPID, CMP, TSH, T7 #### [facility] [address] [address] [address] Jessica Mosqueda CO2 [Moles/Vol] 27.5 mmol/L Normal 21.0-32.0 [facility] Comment on above: Performed By: #### L IPID, CMP, TSH, T7 #### [facility] [address] [address] [address] Jessica Mosqueda Creatinine [Mass/Vol] 1.74 mg/dL Critically high 0.55-1.02 [facility] Comment on above: Performed By: #### L IPID, CMP, TSH, T7 #### [facility] [address] [address] [address] Jessica Mosqueda EGFR-AF CYPRIOT 39 mL/min/1.73m2 Critically low >=60 [facility] Comment on above: Performed By: #### L IPID, CMP, TSH, T7 #### [facility] [address] [address] [address] Jessica Mosqueda EGFR-NON AF CYPRIOT 32 mL/min/1.73m2 Critically low >=60 [facility] Comment on above: Performed By: #### L IPID, CMP, TSH, T7 #### [facility] [address] [address] [address] Jessica Mosqueda Globulin (S) [Mass/Vol] 3.4 g/dL Normal [facility] Comment on above: Performed By: #### L IPID, CMP, TSH, T7 #### [facility] [address] [address] [address] Jessica Mosqueda Glucose [Mass/Vol] 95 mg/dL Normal 74-106 [facility] Comment on above: Performed By: #### L IPID, CMP, TSH, T7 #### [facility] [address] [place] [address] Dr. Jessica Mosqueda Potassium [Moles/Vol] 4.2 mmol/L Normal 3.5-5.1 [facility] Comment on above: Performed By: #### L IPID, CMP, TSH, T7 #### [facility] [address] [address] [address] Jessica Mosqueda Protein [Mass/Vol] 7.2 g/dL Normal 6.4-8.2 [facility] Comment on above: Performed By: #### L IPID, CMP, TSH, T7 #### [facility] [address] [place] [address] Dr. Jessica Mosqueda Sodium [Moles/Vol] 144 mmol/L Normal 136-145 [facility] Comment on above: Performed By: #### L IPID, CMP, TSH, T7 #### [facility] [address] [address] [address] Jessica Mosqueda Urea nitrogen [Mass/Vol] 25.0 mg/dL Critically high 7.0-18.0 [facility] Comment on above: Performed By: #### L IPID, CMP, TSH, T7 #### [facility] [address] [place] [address] Dr. Jessica Mosqueda Urea nitrogen/Creatinine [Mass ratio] 14.4 mg/mg Normal [facility] Comment on above: Performed By: #### L IPID, CMP, TSH, T7 #### [facility] [address] [place] [address] Dr. Jessica Mosqueda TSHon 11-10-2022 TSH 1.244 uIU/mL Normal 0.358-3.740 [facility] Comment on above: Performed By: #### L IPID, CMP, TSH, T7 #### [facility] [address] [place] [address] Dr. Jessica Mosqueda PTH INTACTon 09-28-2022 PTH, Intact 43 pg/mL Normal 15-65 [facility] Comment on above: Performed By: #### L IPID, CMP, TSH, T7 #### [facility] [address] [address] [address] Jessica Mosqueda HEMOGRAM AND PLATELon 2022 Hematocrit (Bld) [Volume fraction] 39.0 % Normal 36.0-48.0 [facility] Comment on above: Performed By: #### H H #### [facility] [address] [address] [address] Jessica Mosqueda Hemoglobin (Bld) [Mass/Vol] 12.3 g/dL Normal 12.0-16.0 [facility] Comment on above: Performed By: #### H H #### [facility] [address] [place] [address] Dr. Jessica Mosqueda MCH (RBC) [Entitic mass] 29.1 pg Normal 26.7-34.0 [facility] Comment on above: Performed By: #### H H #### [facility] [address] [place] [address] Dr. Jessica Mosqueda MCHC (RBC) [Mass/Vol] 31.5 g/dL Normal 29.9-35.2 [facility] Comment on above: Performed By: #### H H #### [facility] [address] [place] [address] Dr. Jessica Mosqueda MCV (RBC) [Entitic vol] 92.4 fL Normal 81.0-99.0 [facility] Comment on above: Performed By: #### H H #### [facility] [address] [address] [address] Jessica Mosqueda PLT 131 103/ul Critically low 150-450 [facility] Comment on above: Performed By: #### H H #### [facility] [address] [address] [address] Jessica Mosqueda RBC 4.22 106/ul Normal 4.20-5.40 [facility] Comment on above: Performed By: #### H H #### [facility] [address] [place] [address] Dr. Jessica Mosqueda WBC 8.6 103/ul Normal 4.0-11.0 [facility] Comment on above: Performed By: #### H H #### [facility] [address] [place] [address] Dr. Jessica Mosqueda PHOSPHORUSon 09-26-2022 Phosphate [Mass/Vol] 4.3 mg/dL Normal 2.6-4.7 [facility] Comment on above: Performed By: #### P THINT #### [facility] [address] [place] [address] Dr. Jessica Mosqueda PROF 14(COMP METB)on 023 Albumin [Mass/Vol] 3.9 g/dL Normal 3.4-5.0 [facility] Comment on above: Performed By: #### P THINT #### [facility] [address] [place] [address] Dr. Jessica Mosqueda Albumin/Globulin [Mass ratio] 1.1 {ratio} Normal [facility] Comment on above: Performed By: #### P THINT #### [facility] [address] [place] [address] Dr. Jessica Mosqueda ALP [Catalytic activity/Vol] 34 U/L Critically low 46-116 [facility] Comment on above: Performed By: #### P THINT #### [facility] [address] [place] [address] Dr. Jessica Mosqueda ALT [Catalytic activity/Vol] 13 U/L Critically low 14-59 [facility] Comment on above: Performed By: #### P THINT #### [facility] [address] [place] [address] Dr. Jessica Mosqueda Anion gap [Moles/Vol] 13.6 mmol/L Normal [facility] Comment on above: Performed By: #### P THINT #### [facility] [address] [place] [address] Dr. Jessica Mosqueda AST [Catalytic activity/Vol] 9 U/L Critically low 15-37 [facility] Comment on above: Performed By: #### P THINT #### [facility] [address] [address] [address] Jessica Mosqueda Bilirubin [Mass/Vol] 0.3 mg/dL Normal 0.2-1.0 [facility] Comment on above: Performed By: #### P THINT #### [facility] [address] [address] [address] Jessica Mosqueda Calcium [Mass/Vol] 9.5 mg/dL Normal 8.5-10.1 [facility] Comment on above: Performed By: #### P THINT #### [facility] [address] [address] [address] Jessica Mosqueda Chloride [Moles/Vol] 105 mmol/L Normal 98-107 [facility] Comment on above: Performed By: #### P THINT #### [facility] [address] [address] [address] Jessica Mosqueda CO2 [Moles/Vol] 24.7 mmol/L Normal 21.0-32.0 [facility] Comment on above: Performed By: #### P THINT #### [facility] [address] [address] [address] Jessica Mosqueda Creatinine [Mass/Vol] 1.67 mg/dL Critically high 0.55-1.02 [facility] Comment on above: Performed By: #### P THINT #### [facility] [address] [address] [address] Jessica Mosqueda EGFR-AF CYPRIOT 41 mL/min/1.73m2 Critically low >=60 [facility] Comment on above: Performed By: #### P THINT #### [facility] [address] [address] [address] Jessica Mosqueda EGFR-NON AF CYPRIOT 34 mL/min/1.73m2 Critically low >=60 [facility] Comment on above: Performed By: #### P THINT #### [facility] [address] [address] [address] Jessica Mosqueda Globulin (S) [Mass/Vol] 3.5 g/dL Normal [facility] Comment on above: Performed By: #### P THINT #### [facility] [address] [address] [address] Jessica Mosqueda Glucose [Mass/Vol] 94 mg/dL Normal 74-106 [facility] Comment on above: Performed By: #### P THINT #### [facility] [address] [address] [address] Jessica Mosqueda Potassium [Moles/Vol] 4.4 mmol/L Normal 3.5-5.1 [facility] Comment on above: Performed By: #### P THINT #### [facility] [address] [address] [address] Jessica Mosqueda Protein [Mass/Vol] 7.4 g/dL Normal 6.4-8.2 [facility] Comment on above: Performed By: #### P THINT #### [facility] [address] [place] [address] Dr. Jessica Mosqueda Sodium [Moles/Vol] 139 mmol/L Normal 136-145 [facility] Comment on above: Performed By: #### P THINT #### [facility] [address] [address] [address] Jessica Mosqueda Urea nitrogen [Mass/Vol] 29.0 mg/dL Critically high 7.0-18.0 [facility] Comment on above: Performed By: #### P THINT #### [facility] [address] [address] [address] Jessica Mosqueda Urea nitrogen/Creatinine [Mass ratio] 17.4 mg/mg Normal [facility] Comment on above: Performed By: #### P THINT #### [facility] [address] [address] [address] Jessica Mosqueda PTH INTACTon 06-30-2022 PTH, Intact 64 pg/mL Normal 15-65 [facility] Comment on above: Performed By: #### P THINT #### [facility] [address] [place] [address] Dr. Jessica Mosqueda HEMOGRAM AND PLATELon 2021 Hematocrit (Bld) [Volume fraction] 37.5 % Normal 36.0-48.0 [facility] Comment on above: Performed By: #### P THINT #### [facility] [address] [place] [address] Dr. Jessica Mosqueda Hemoglobin (Bld) [Mass/Vol] 12.1 g/dL Normal 12.0-16.0 [facility] Comment on above: Performed By: #### P THINT #### [facility] [address] [place] [address] Dr. Jessica Mosqueda MCH (RBC) [Entitic mass] 29.0 pg Normal 26.7-34.0 [facility] Comment on above: Performed By: #### P THINT #### [facility] [address] [place] [address] Dr. Jessica Mosqueda MCHC (RBC) [Mass/Vol] 32.3 g/dL Normal 29.9-35.2 [facility] Comment on above: Performed By: #### P THINT #### [facility] [address] [place] [address] Dr. Jessica Mosqueda MCV (RBC) [Entitic vol] 89.9 fL Normal 81.0-99.0 [facility] Comment on above: Performed By: #### P THINT #### [facility] [address] [place] [address] Dr. Jessica Mosqueda PLT 170 103/ul Normal 150-450 [facility] Comment on above: Performed By: #### P THINT #### [facility] [address] [place] [address] Dr. Jessica Mosqueda RBC 4.17 106/ul Critically low 4.20-5.40 [facility] Comment on above: Performed By: #### P THINT #### [facility] [address] [place] [address] Dr. Jessica Mosqueda WBC 9.4 103/ul Normal 4.0-11.0 [facility] Comment on above: Performed By: #### P THINT #### [facility] [address] [place] [address] Dr. Jessica Mosqueda PHOSPHORUSon 06-29-2022 Phosphate [Mass/Vol] 3.8 mg/dL Normal 2.6-4.7 [facility] Comment on above: Performed By: #### L IPID, CMP, TSH, T7 #### [facility] [address] [place] [address] Dr. Jessica Mosqueda PROF 14(COMP METB)on 022 Albumin [Mass/Vol] 4.0 g/dL Normal 3.4-5.0 [facility] Comment on above: Performed By: #### L IPID, CMP, TSH, T7 #### [facility] [address] [place] [address] Dr. Jessica Mosqueda Albumin/Globulin [Mass ratio] 1.2 {ratio} Normal [facility] Comment on above: Performed By: #### L IPID, CMP, TSH, T7 #### [facility] [address] [place] [address] Dr. Jessica Mosqueda ALP [Catalytic activity/Vol] 38 U/L Critically low 46-116 [facility] Comment on above: Performed By: #### L IPID, CMP, TSH, T7 #### [facility] [address] [place] [address] Dr. Jessica Mosqueda ALT [Catalytic activity/Vol] 13 U/L Critically low 14-59 [facility] Comment on above: Performed By: #### L IPID, CMP, TSH, T7 #### [facility] [address] [place] [address] Dr. Jessica Mosqueda Anion gap [Moles/Vol] 13.1 mmol/L Normal [facility] Comment on above: Performed By: #### L IPID, CMP, TSH, T7 #### [facility] [address] [place] [address] Dr. Jessica Mosqueda AST [Catalytic activity/Vol] 14 U/L Critically low 15-37 [facility] Comment on above: Performed By: #### L IPID, CMP, TSH, T7 #### [facility] [address] [place] [address] Dr. Jessica Mosqueda Bilirubin [Mass/Vol] 0.4 mg/dL Normal 0.2-1.0 [facility] Comment on above: Performed By: #### L IPID, CMP, TSH, T7 #### [facility] [address] [address] [address] Jessica Mosqueda Calcium [Mass/Vol] 9.2 mg/dL Normal 8.5-10.1 [facility] Comment on above: Performed By: #### L IPID, CMP, TSH, T7 #### [facility] [address] [place] [address] Dr. Jessica Mosqueda Chloride [Moles/Vol] 104 mmol/L Normal 98-107 [facility] Comment on above: Performed By: #### L IPID, CMP, TSH, T7 #### [facility] [address] [place] [address] Dr. Jessica Mosqueda CO2 [Moles/Vol] 26.1 mmol/L Normal 21.0-32.0 [facility] Comment on above: Performed By: #### L IPID, CMP, TSH, T7 #### [facility] [address] [place] [address] Dr. Jessica Mosqueda Creatinine [Mass/Vol] 1.86 mg/dL Critically high 0.55-1.02 [facility] Comment on above: Performed By: #### L IPID, CMP, TSH, T7 #### [facility] [address] [place] [address] Dr. Jessica Mosqueda EGFR-AF CYPRIOT 36 mL/min/1.73m2 Critically low >=60 [facility] Comment on above: Performed By: #### L IPID, CMP, TSH, T7 #### [facility] [address] [place] [address] Dr. Jessica Mosqueda EGFR-NON AF CYPRIOT 30 mL/min/1.73m2 Critically low >=60 [facility] Comment on above: Performed By: #### L IPID, CMP, TSH, T7 #### [facility] [address] [place] [address] Dr. Jessica Mosqueda Globulin (S) [Mass/Vol] 3.4 g/dL Normal [facility] Comment on above: Performed By: #### L IPID, CMP, TSH, T7 #### [facility] [address] [address] [address] Jessica Mosqueda Glucose [Mass/Vol] 84 mg/dL Normal 74-106 [facility] Comment on above: Performed By: #### L IPID, CMP, TSH, T7 #### [facility] [address] [address] [address] Jessica Mosqueda Potassium [Moles/Vol] 4.2 mmol/L Normal 3.5-5.1 [facility] Comment on above: Performed By: #### L IPID, CMP, TSH, T7 #### [facility] [address] [address] [address] Jessica Mosqueda Protein [Mass/Vol] 7.4 g/dL Normal 6.4-8.2 [facility] Comment on above: Performed By: #### L IPID, CMP, TSH, T7 #### [facility] [address] [place] [address] Dr. Jessica Mosqueda Sodium [Moles/Vol] 139 mmol/L Normal 136-145 [facility] Comment on above: Performed By: #### L IPID, CMP, TSH, T7 #### [facility] [address] [place] [address] Dr. Jessica Mosqueda Urea nitrogen [Mass/Vol] 26.0 mg/dL Critically high 7.0-18.0 [facility] Comment on above: Performed By: #### L IPID, CMP, TSH, T7 #### [facility] [address] [address] [address] Jessica Mosqueda Urea nitrogen/Creatinine [Mass ratio] 14.0 mg/mg Normal [facility] Comment on above: Performed By: #### L IPID, CMP, TSH, T7 #### [facility] [address] [place] [address] Dr. Jessica Mosqueda UA RANDOMon 06-29-2022 Bilirubin Ql (U) Negative Normal NEGATIVE [facility] Comment on above: Performed By: #### L IPID, CMP, TSH, T7 #### [facility] [address] [place] [address] Dr. Jessica Mosqueda Clarity (U) CLEAR Normal CLEAR [facility] Comment on above: Performed By: #### L IPID, CMP, TSH, T7 #### [facility] [address] [place] [address] Dr. Jessica Mosqueda Color (U) LT. YELLOW Normal YELLOW [facility] Comment on above: Performed By: #### L IPID, CMP, TSH, T7 #### [facility] [address] [place] [address] Dr. Jessica Mosqueda Glucose Ql (U) Negative Normal NEGATIVE [facility] Comment on above: Performed By: #### L IPID, CMP, TSH, T7 #### [facility] [address] [place] [address] Dr. Jessica Mosqueda Hemoglobin Ql (U) Negative Normal NEGATIVE [facility] Comment on above: Performed By: #### L IPID, CMP, TSH, T7 #### [facility] [address] [place] [address] Dr. Jessica Mosqueda Ketones Ql (U) Negative Normal NEGATIVE [facility] Comment on above: Performed By: #### L IPID, CMP, TSH, T7 #### [facility] [address] [place] [address] Dr. Jessica Mosqueda LEUKOCYTES Negative Normal NEGATIVE [facility] Comment on above: Performed By: #### L IPID, CMP, TSH, T7 #### [facility] [address] [place] [address] Dr. Jessica Mosqueda Nitrite Ql (U) Negative Normal NEGATIVE [facility] Comment on above: Performed By: #### L IPID, CMP, TSH, T7 #### [facility] [address] [place] [address] Dr. Jessica Mosqueda pH (U) 6.0 [pH] Normal 5-9 [facility] Comment on above: Performed By: #### L IPID, CMP, TSH, T7 #### [facility] [address] [place] [address] Dr. Jessica Mosqueda SPEC GRAVITY <=1.005 Abnormal 1.005-<=1.025 [facility] Comment on above: Performed By: #### L IPID, CMP, TSH, T7 #### [facility] [address] [address] [address] Jessica Mosqueda UA PROTEIN Negative Normal NEGATIVE/ TRACE [facility] Comment on above: Performed By: #### L IPID, CMP, TSH, T7 #### [facility] [address] [place] [address] Dr. Jessica Mosqueda Urobilinogen Qn (U) 0.2 {Fran'U}/dL Normal 0.2 - 1. 0 [facility] Comment on above: Performed By: #### L IPID, CMP, TSH, T7 #### [facility] [address] [place] [address] Dr. Jessica Mosqueda PROF 14(COMP METB)on 022 Albumin [Mass/Vol] 3.9 g/dL Normal 3.4-5.0 [facility] Comment on above: Performed By: #### P THINT #### [facility] [address] [place] [address] Dr. Jessica Mosqueda Albumin/Globulin [Mass ratio] 1.1 {ratio} Normal [facility] Comment on above: Performed By: #### P THINT #### [facility] [address] [place] [address] Dr. Jessica Mosqueda ALP [Catalytic activity/Vol] 36 U/L Critically low 46-116 [facility] Comment on above: Performed By: #### P THINT #### [facility] [address] [place] [address] Dr. Jessica Mosqueda ALT [Catalytic activity/Vol] 17 U/L Normal 14-59 [facility] Comment on above: Performed By: #### P THINT #### [facility] [address] [place] [address] Dr. Jessica Mosqueda Anion gap [Moles/Vol] 13.9 mmol/L Normal [facility] Comment on above: Performed By: #### P THINT #### [facility] [address] [place] [address] Dr. Jessica Mosqueda AST [Catalytic activity/Vol] 11 U/L Critically low 15-37 [facility] Comment on above: Performed By: #### P THINT #### [facility] [address] [address] [address] Jessica Mosqueda Bilirubin [Mass/Vol] 0.3 mg/dL Normal 0.2-1.0 [facility] Comment on above: Performed By: #### P THINT #### [facility] [address] [place] [address] Dr. Jessica Mosqueda Calcium [Mass/Vol] 9.2 mg/dL Normal 8.5-10.1 [facility] Comment on above: Performed By: #### P THINT #### [facility] [address] [place] [address] Dr. Jessica Mosqueda Chloride [Moles/Vol] 105 mmol/L Normal 98-107 [facility] Comment on above: Performed By: #### P THINT #### [facility] [address] [place] [address] Dr. Jessica Mosqueda CO2 [Moles/Vol] 26.5 mmol/L Normal 21.0-32.0 [facility] Comment on above: Performed By: #### P THINT #### [facility] [address] [place] [address] Dr. Jessica Mosqueda Creatinine [Mass/Vol] 2.06 mg/dL Critically high 0.55-1.02 [facility] Comment on above: Performed By: #### P THINT #### [facility] [address] [place] [address] Dr. Jessica Mosqueda EGFR-AF CYPRIOT 32 mL/min/1.73m2 Critically low >=60 [facility] Comment on above: Performed By: #### P THINT #### [facility] [address] [place] [address] Dr. Jessica Mosqueda EGFR-NON AF CYPRIOT 27 mL/min/1.73m2 Critically low >=60 [facility] Comment on above: Performed By: #### P THINT #### [facility] [address] [place] [address] Dr. Jessica Mosqueda Globulin (S) [Mass/Vol] 3.5 g/dL Normal [facility] Comment on above: Performed By: #### P THINT #### [facility] [address] [place] [address] Dr. Jessica Mosqueda Glucose [Mass/Vol] 75 mg/dL Normal 74-106 [facility] Comment on above: Performed By: #### P THINT #### [facility] [address] [place] [address] Dr. Jessica Mosqueda Potassium [Moles/Vol] 4.4 mmol/L Normal 3.5-5.1 [facility] Comment on above: Performed By: #### P THINT #### [facility] [address] [place] [address] Dr. Jessica Mosqueda Protein [Mass/Vol] 7.4 g/dL Normal 6.4-8.2 [facility] Comment on above: Performed By: #### P THINT #### [facility] [address] [place] [address] Dr. Jessica Mosqueda Sodium [Moles/Vol] 141 mmol/L Normal 136-145 [facility] Comment on above: Performed By: #### P THINT #### [facility] [address] [place] [address] Dr. Jessica Mosqueda Urea nitrogen [Mass/Vol] 37.0 mg/dL Critically high 7.0-18.0 [facility] Comment on above: Performed By: #### P THINT #### [facility] [address] [place] [address] Dr. Jessica Mosqueda Urea nitrogen/Creatinine [Mass ratio] 18.0 mg/mg Normal [facility] Comment on above: Performed By: #### P THINT #### [facility] [address] [place] [address] Dr. Jessica Mosqueda PROF 14(COMP METB)on 022 Albumin [Mass/Vol] 3.9 g/dL Normal 3.4-5.0 [facility] Comment on above: Performed By: #### C MP #### [facility] [address] [place] [address] Dr. Jessica Mosqueda Albumin/Globulin [Mass ratio] 1.2 {ratio} Normal [facility] Comment on above: Performed By: #### C MP #### [facility] [address] [place] [address] Dr. Jessica Mosqueda ALP [Catalytic activity/Vol] 32 U/L Critically low 46-116 [facility] Comment on above: Performed By: #### C MP #### [facility] [address] [address] [address] Jessica Mosqueda ALT [Catalytic activity/Vol] 12 U/L Critically low 14-59 [facility] Comment on above: Performed By: #### C MP #### [facility] [address] [place] [address] Dr. Jessica Mosqueda Anion gap [Moles/Vol] 13.6 mmol/L Normal [facility] Comment on above: Performed By: #### C MP #### [facility] [address] [place] [address] Dr. Jessica Mosqueda AST [Catalytic activity/Vol] 15 U/L Normal 15-37 [facility] Comment on above: Performed By: #### C MP #### [facility] [address] [place] [address] Dr. Jessica Mosqueda Bilirubin [Mass/Vol] 0.2 mg/dL Normal 0.2-1.0 [facility] Comment on above: Performed By: #### C MP #### [facility] [address] [place] [address] Dr. Jessica Mosqueda Calcium [Mass/Vol] 9.2 mg/dL Normal 8.5-10.1 [facility] Comment on above: Performed By: #### C MP #### [facility] [address] [place] [address] Dr. Jessica Mosqueda Chloride [Moles/Vol] 105 mmol/L Normal 98-107 [facility] Comment on above: Performed By: #### C MP #### [facility] [address] [place] [address] Dr. Jessica Mosqueda CO2 [Moles/Vol] 26.0 mmol/L Normal 21.0-32.0 [facility] Comment on above: Performed By: #### C MP #### [facility] [address] [address] [address] Jessica Mosqueda Creatinine [Mass/Vol] 1.98 mg/dL Critically high 0.55-1.02 [facility] Comment on above: Performed By: #### C MP #### [facility] [address] [address] [address] Jessica Mosqueda EGFR-AF CYPRIOT 34 mL/min/1.73m2 Critically low >=60 [facility] Comment on above: Performed By: #### C MP #### [facility] [address] [address] [address] Jessica Mosqueda EGFR-NON AF CYPRIOT 28 mL/min/1.73m2 Critically low >=60 [facility] Comment on above: Performed By: #### C MP #### [facility] [address] [address] [address] Jessica Mosqueda Globulin (S) [Mass/Vol] 3.3 g/dL Normal [facility] Comment on above: Performed By: #### C MP #### [facility] [address] [address] [address] Jessica Mosqueda Glucose [Mass/Vol] 93 mg/dL Normal 74-106 [facility] Comment on above: Performed By: #### C MP #### [facility] [address] [address] [address] Jessica Mosqueda Potassium [Moles/Vol] 4.6 mmol/L Normal 3.5-5.1 [facility] Comment on above: Performed By: #### C MP #### [facility] [address] [address] [address] Jessica Mosqueda Protein [Mass/Vol] 7.2 g/dL Normal 6.4-8.2 [facility] Comment on above: Performed By: #### C MP #### [facility] [address] [address] [address] Jessica Mosqueda Sodium [Moles/Vol] 140 mmol/L Normal 136-145 [facility] Comment on above: Performed By: #### C MP #### [facility] [address] [address] [address] Jessica Mosqueda Urea nitrogen [Mass/Vol] 23.0 mg/dL Critically high 7.0-18.0 [facility] Comment on above: Performed By: #### C MP #### [facility] [address] [place] [address] Dr. Jessica Mosqueda Urea nitrogen/Creatinine [Mass ratio] 11.6 mg/mg Normal [facility] Comment on above: Performed By: #### C MP #### [facility] [address] [place] [address] Dr. Jessica Mosqueda PTH INTACTon 03-23-2022 PTH, Intact 71 pg/mL Critically high 15-65 [facility] Comment on above: Performed By: #### P THINT #### [facility] [address] [place] [address] Dr. Jessica Mosqueda HEMOGRAM AND PLATELon 2021 Hematocrit (Bld) [Volume fraction] 37.8 % Normal 36.0-48.0 [facility] Comment on above: Performed By: #### H H #### [facility] [address] [place] [address] Dr. Jessica Mosqueda Hemoglobin (Bld) [Mass/Vol] 12.3 g/dL Normal 12.0-16.0 [facility] Comment on above: Performed By: #### H H #### [facility] [address] [place] [address] Dr. Jessica Mosqueda MCH (RBC) [Entitic mass] 29.6 pg Normal 26.7-34.0 [facility] Comment on above: Performed By: #### H H #### [facility] [address] [place] [address] Dr. Jessica Mosqueda MCHC (RBC) [Mass/Vol] 32.5 g/dL Normal 29.9-35.2 [facility] Comment on above: Performed By: #### H H #### [facility] [address] [place] [address] Dr. Jessica Mosqueda MCV (RBC) [Entitic vol] 90.9 fL Normal 81.0-99.0 [facility] Comment on above: Performed By: #### H H #### [facility] [address] [place] [address] Dr. Jessica Mosqueda PLT 158 103/ul Normal 150-450 [facility] Comment on above: Performed By: #### H H #### [facility] [address] [place] [address] Dr. Jessica Mosqueda RBC 4.16 106/ul Critically low 4.20-5.40 [facility] Comment on above: Performed By: #### H H #### [facility] [address] [place] [address] Dr. Jessica Mosqueda WBC 10.3 103/ul Normal 4.0-11.0 [facility] Comment on above: Performed By: #### H H #### [facility] [address] [place] [address] Dr. Jessica Mosqueda PHOSPHORUSon 03-22-2022 Phosphate [Mass/Vol] 4.7 mg/dL Normal 2.6-4.7 [facility] Comment on above: Performed By: #### L IPID, CMP, TSH, T7 #### [facility] [address] [place] [address] Dr. Jessica Mosqueda PROF 14(COMP METB)on 022 Albumin [Mass/Vol] 4.1 g/dL Normal 3.4-5.0 [facility] Comment on above: Performed By: #### L IPID, CMP, TSH, T7 #### [facility] [address] [place] [address] Dr. Jessica Mosqueda Albumin/Globulin [Mass ratio] 1.2 {ratio} Normal [facility] Comment on above: Performed By: #### L IPID, CMP, TSH, T7 #### [facility] [address] [place] [address] Dr. Jessica Mosqueda ALP [Catalytic activity/Vol] 36 U/L Critically low 46-116 [facility] Comment on above: Performed By: #### L IPID, CMP, TSH, T7 #### [facility] [address] [address] [address] Jessica Mosqueda ALT [Catalytic activity/Vol] 16 U/L Normal 14-59 [facility] Comment on above: Performed By: #### L IPID, CMP, TSH, T7 #### [facility] [address] [address] [address] Jessica Mosqueda Anion gap [Moles/Vol] 15.4 mmol/L Normal [facility] Comment on above: Performed By: #### L IPID, CMP, TSH, T7 #### [facility] [address] [address] [address] Jessica Mosqueda AST [Catalytic activity/Vol] 12 U/L Critically low 15-37 [facility] Comment on above: Performed By: #### L IPID, CMP, TSH, T7 #### [facility] [address] [place] [address] Dr. Jessica Mosqueda Bilirubin [Mass/Vol] 0.6 mg/dL Normal 0.2-1.0 [facility] Comment on above: Performed By: #### L IPID, CMP, TSH, T7 #### [facility] [address] [address] [address] Jessica Mosqueda Calcium [Mass/Vol] 9.3 mg/dL Normal 8.5-10.1 [facility] Comment on above: Performed By: #### L IPID, CMP, TSH, T7 #### [facility] [address] [address] [address] Jessica Mosqueda Chloride [Moles/Vol] 103 mmol/L Normal 98-107 [facility] Comment on above: Performed By: #### L IPID, CMP, TSH, T7 #### [facility] [address] [place] [address] Dr. Jessica Mosqueda CO2 [Moles/Vol] 24.4 mmol/L Normal 21.0-32.0 [facility] Comment on above: Performed By: #### L IPID, CMP, TSH, T7 #### [facility] [address] [place] [address] Dr. Jessica Mosqueda Creatinine [Mass/Vol] 2.04 mg/dL Critically high 0.55-1.02 [facility] Comment on above: Performed By: #### L IPID, CMP, TSH, T7 #### [facility] [address] [address] [address] Jessica Mosqueda EGFR-AF CYPRIOT 33 mL/min/1.73m2 Critically low >=60 [facility] Comment on above: Performed By: #### L IPID, CMP, TSH, T7 #### [facility] [address] [address] [address] Jessica Mosqueda EGFR-NON AF CYPRIOT 27 mL/min/1.73m2 Critically low >=60 [facility] Comment on above: Performed By: #### L IPID, CMP, TSH, T7 #### [facility] [address] [address] [address] Jessica Mosqueda Globulin (S) [Mass/Vol] 3.3 g/dL Normal [facility] Comment on above: Performed By: #### L IPID, CMP, TSH, T7 #### [facility] [address] [address] [address] Jessica Mosqueda Glucose [Mass/Vol] 84 mg/dL Normal 74-106 [facility] Comment on above: Performed By: #### L IPID, CMP, TSH, T7 #### [facility] [address] [address] [address] Jessica Mosqueda Potassium [Moles/Vol] 3.8 mmol/L Normal 3.5-5.1 [facility] Comment on above: Performed By: #### L IPID, CMP, TSH, T7 #### [facility] [address] [address] [address] Jessica Mosqueda Protein [Mass/Vol] 7.4 g/dL Normal 6.4-8.2 [facility] Comment on above: Performed By: #### L IPID, CMP, TSH, T7 #### [facility] [address] [address] [address] Jessica Mosqueda Sodium [Moles/Vol] 139 mmol/L Normal 136-145 [facility] Comment on above: Performed By: #### L IPID, CMP, TSH, T7 #### [facility] [address] [address] [address] Jessica Mosqueda Urea nitrogen [Mass/Vol] 30.0 mg/dL Critically high 7.0-18.0 [facility] Comment on above: Performed By: #### L IPID, CMP, TSH, T7 #### [facility] [address] [address] [address] Jessica Mosqueda Urea nitrogen/Creatinine [Mass ratio] 14.7 mg/mg Normal [facility] Comment on above: Performed By: #### L IPID, CMP, TSH, T7 #### [facility] [address] [place] [address] Dr. Jessica Mosqueda UA RANDOMon 03-22-2022 Bilirubin Ql (U) Negative Normal NEGATIVE [facility] Comment on above: Performed By: #### L IPID, CMP, TSH, T7 #### [facility] [address] [address] [address] Jessica Mosqueda Clarity (U) CLEAR Normal CLEAR [facility] Comment on above: Performed By: #### L IPID, CMP, TSH, T7 #### [facility] [address] [place] [address] Dr. Jessica Mosqueda Color (U) LT. YELLOW Normal YELLOW [facility] Comment on above: Performed By: #### L IPID, CMP, TSH, T7 #### [facility] [address] [place] [address] Dr. Jessica Mosqueda Glucose Ql (U) Negative Normal NEGATIVE [facility] Comment on above: Performed By: #### L IPID, CMP, TSH, T7 #### [facility] [address] [address] [address] Jessica Mosqueda Hemoglobin Ql (U) Negative Normal NEGATIVE [facility] Comment on above: Performed By: #### L IPID, CMP, TSH, T7 #### [facility] [address] [place] [address] Dr. Jessica Mosqueda Ketones Ql (U) Negative Normal NEGATIVE [facility] Comment on above: Performed By: #### L IPID, CMP, TSH, T7 #### [facility] [address] [address] [address] Jessica Mosqueda LEUKOCYTES Negative Normal NEGATIVE [facility] Comment on above: Performed By: #### L IPID, CMP, TSH, T7 #### [facility] [address] [address] [address] Jessica Mosqueda Nitrite Ql (U) Negative Normal NEGATIVE [facility] Comment on above: Performed By: #### L IPID, CMP, TSH, T7 #### [facility] [address] [address] [address] Jessica Mosqueda pH (U) 5.5 [pH] Normal 5-9 [facility] Comment on above: Performed By: #### L IPID, CMP, TSH, T7 #### [facility] [address] [place] [address] Dr. Jessica Mosqueda SPEC GRAVITY 1.005 Normal 1.005-<=1.025 [facility] Comment on above: Performed By: #### L IPID, CMP, TSH, T7 #### [facility] [address] [address] [address] Jessica Mosqueda UA PROTEIN Negative Normal NEGATIVE/ TRACE [facility] Comment on above: Performed By: #### L IPID, CMP, TSH, T7 #### [facility] [address] [place] [address] Dr. Jessica Mosqueda Urobilinogen Qn (U) 0.2 {Fran'U}/dL Normal 0.2 - 1. 0 [facility] Comment on above: Performed By: #### L IPID, CMP, TSH, T7 #### [facility] [address] [address] [address] Jessica Mosqueda URINE T PROTEIN CREAT RATIOo n 03-22-2022 UR TOTAL PROTEIN <6.0 Normal <=12.0 [facility] Comment on above: Performed By: #### L IPID, CMP, TSH, T7 #### [facility] [address] [place] [address] Dr. Jessica Mosqueda URINE CREAT 23.46 mg/dL Normal 20.00-300.00 [facility] Comment on above: Performed By: #### L IPID, CMP, TSH, T7 #### [facility] [address] [address] [address] Jessica Mosqueda PROF 14(COMP METB)on 022 Albumin [Mass/Vol] 3.8 g/dL Normal 3.4-5.0 [facility] Comment on above: Performed By: #### L IPID, CMP, TSH, T7 #### [facility] [address] [address] [address] Jessica Mosqueda Albumin/Globulin [Mass ratio] 1.3 {ratio} Normal [facility] Comment on above: Performed By: #### L IPID, CMP, TSH, T7 #### [facility] [address] [place] [address] Dr. Jessica Mosqueda ALP [Catalytic activity/Vol] 35 U/L Critically low 46-116 [facility] Comment on above: Performed By: #### L IPID, CMP, TSH, T7 #### [facility] [address] [address] [address] Jessica Mosqueda ALT [Catalytic activity/Vol] 17 U/L Normal 14-59 [facility] Comment on above: Performed By: #### L IPID, CMP, TSH, T7 #### [facility] [address] [address] [address] Jessica Mosqueda Anion gap [Moles/Vol] 12.2 mmol/L Normal [facility] Comment on above: Performed By: #### L IPID, CMP, TSH, T7 #### [facility] [address] [address] [address] Jessica Mosqueda AST [Catalytic activity/Vol] 13 U/L Critically low 15-37 [facility] Comment on above: Performed By: #### L IPID, CMP, TSH, T7 #### [facility] [address] [address] [address] Jessica Mosqueda Bilirubin [Mass/Vol] 0.4 mg/dL Normal 0.2-1.0 [facility] Comment on above: Performed By: #### L IPID, CMP, TSH, T7 #### [facility] [address] [address] [address] Jessica Mosqueda Calcium [Mass/Vol] 8.6 mg/dL Normal 8.5-10.1 [facility] Comment on above: Performed By: #### L IPID, CMP, TSH, T7 #### [facility] [address] [address] [address] Jessica Mosqueda Chloride [Moles/Vol] 106 mmol/L Normal 98-107 [facility] Comment on above: Performed By: #### L IPID, CMP, TSH, T7 #### [facility] [address] [place] [address] Dr. Jessica Mosqueda CO2 [Moles/Vol] 26.1 mmol/L Normal 21.0-32.0 [facility] Comment on above: Performed By: #### L IPID, CMP, TSH, T7 #### [facility] [address] [place] [address] Dr. Jessica Mosqueda Creatinine [Mass/Vol] 1.76 mg/dL Critically high 0.55-1.02 [facility] Comment on above: Performed By: #### L IPID, CMP, TSH, T7 #### [facility] [address] [place] [address] Dr. Jessica Mosqueda EGFR-AF CYPRIOT 39 mL/min/1.73m2 Critically low >=60 [facility] Comment on above: Performed By: #### L IPID, CMP, TSH, T7 #### [facility] [address] [place] [address] Dr. Jessica Mosqueda EGFR-NON AF CYPRIOT 32 mL/min/1.73m2 Critically low >=60 [facility] Comment on above: Performed By: #### L IPID, CMP, TSH, T7 #### [facility] [address] [address] [address] Jessica Mosqueda Globulin (S) [Mass/Vol] 3.0 g/dL Normal [facility] Comment on above: Performed By: #### L IPID, CMP, TSH, T7 #### [facility] [address] [address] [address] Jessica Mosqueda Glucose [Mass/Vol] 81 mg/dL Normal 74-106 [facility] Comment on above: Performed By: #### L IPID, CMP, TSH, T7 #### [facility] [address] [place] [address] Dr. Jessica Mosqueda Potassium [Moles/Vol] 4.3 mmol/L Normal 3.5-5.1 [facility] Comment on above: Performed By: #### L IPID, CMP, TSH, T7 #### [facility] [address] [address] [address] Jessica Mosqueda Protein [Mass/Vol] 6.8 g/dL Normal 6.4-8.2 [facility] Comment on above: Performed By: #### L IPID, CMP, TSH, T7 #### [facility] [address] [place] [address] Dr. Jessica Mosqueda Sodium [Moles/Vol] 140 mmol/L Normal 136-145 [facility] Comment on above: Performed By: #### L IPID, CMP, TSH, T7 #### [facility] [address] [place] [address] Dr. Jessica Mosqueda Urea nitrogen [Mass/Vol] 20.0 mg/dL Critically high 7.0-18.0 [facility] Comment on above: Performed By: #### L IPID, CMP, TSH, T7 #### [facility] [address] [place] [address] Dr. Jessica Mosqueda Urea nitrogen/Creatinine [Mass ratio] 11.4 mg/mg Normal [facility] Comment on above: Performed By: #### L IPID, CMP, TSH, T7 #### [facility] [address] [place] [address] Dr. Jessica Mosqueda PROF 14(COMP METB)on 022 Albumin [Mass/Vol] 4.0 g/dL Normal 3.4-5.0 [facility] Comment on above: Performed By: #### L IPID, CMP, TSH, T7 #### [facility] [address] [address] [address] Jessica Mosqueda Albumin/Globulin [Mass ratio] 1.2 {ratio} Normal [facility] Comment on above: Performed By: #### L IPID, CMP, TSH, T7 #### [facility] [address] [address] [address] Jessica Mosqueda ALP [Catalytic activity/Vol] 31 U/L Critically low 46-116 [facility] Comment on above: Performed By: #### L IPID, CMP, TSH, T7 #### [facility] [address] [address] [address] Jessica Mosqueda ALT [Catalytic activity/Vol] 19 U/L Normal 14-59 [facility] Comment on above: Performed By: #### L IPID, CMP, TSH, T7 #### [facility] [address] [address] [address] Jessica Mosqueda Anion gap [Moles/Vol] 13.7 mmol/L Normal [facility] Comment on above: Performed By: #### L IPID, CMP, TSH, T7 #### [facility] [address] [address] [address] Jessica Mosqueda AST [Catalytic activity/Vol] 12 U/L Critically low 15-37 [facility] Comment on above: Performed By: #### L IPID, CMP, TSH, T7 #### [facility] [address] [address] [address] Jessica Mosqueda Bilirubin [Mass/Vol] 0.3 mg/dL Normal 0.2-1.0 [facility] Comment on above: Performed By: #### L IPID, CMP, TSH, T7 #### [facility] [address] [address] [address] Jessica Mosqueda Calcium [Mass/Vol] 9.3 mg/dL Normal 8.5-10.1 [facility] Comment on above: Performed By: #### L IPID, CMP, TSH, T7 #### [facility] [address] [address] [address] Jessica Mosqueda Chloride [Moles/Vol] 106 mmol/L Normal 98-107 [facility] Comment on above: Performed By: #### L IPID, CMP, TSH, T7 #### [facility] [address] [place] [address] Dr. Jessica Mosqueda CO2 [Moles/Vol] 25.4 mmol/L Normal 21.0-32.0 [facility] Comment on above: Performed By: #### L IPID, CMP, TSH, T7 #### [facility] [address] [address] [address] Jessica Mosqueda Creatinine [Mass/Vol] 1.84 mg/dL Critically high 0.55-1.02 [facility] Comment on above: Performed By: #### L IPID, CMP, TSH, T7 #### [facility] [address] [place] [address] Dr. Jessica Mosqueda EGFR-AF CYPRIOT 37 mL/min/1.73m2 Critically low >=60 [facility] Comment on above: Performed By: #### L IPID, CMP, TSH, T7 #### [facility] [address] [address] [address] Jessica Mosqueda EGFR-NON AF CYPRIOT 30 mL/min/1.73m2 Critically low >=60 [facility] Comment on above: Performed By: #### L IPID, CMP, TSH, T7 #### [facility] [address] [place] [address] Dr. Jessica Mosqueda Globulin (S) [Mass/Vol] 3.4 g/dL Normal [facility] Comment on above: Performed By: #### L IPID, CMP, TSH, T7 #### [facility] [address] [place] [address] Dr. Jessica Mosqueda Glucose [Mass/Vol] 99 mg/dL Normal 74-106 [facility] Comment on above: Performed By: #### L IPID, CMP, TSH, T7 #### [facility] [address] [place] [address] Dr. Jessica Mosqueda Potassium [Moles/Vol] 4.1 mmol/L Normal 3.5-5.1 [facility] Comment on above: Performed By: #### L IPID, CMP, TSH, T7 #### [facility] [address] [address] [address] Jessica Mosqueda Protein [Mass/Vol] 7.4 g/dL Normal 6.4-8.2 [facility] Comment on above: Performed By: #### L IPID, CMP, TSH, T7 #### [facility] [address] [address] [address] Jessica Mosqueda Sodium [Moles/Vol] 141 mmol/L Normal 136-145 [facility] Comment on above: Performed By: #### L IPID, CMP, TSH, T7 #### [facility] [address] [place] [address] Dr. Jessica Mosqueda Urea nitrogen [Mass/Vol] 25.0 mg/dL Critically high 7.0-18.0 [facility] Comment on above: Performed By: #### L IPID, CMP, TSH, T7 #### [facility] [address] [address] [address] Jessica Mosqueda Urea nitrogen/Creatinine [Mass ratio] 13.6 mg/mg Normal [facility] Comment on above: Performed By: #### L IPID, CMP, TSH, T7 #### [facility] [address] [place] [address] Dr. Jessica ALTAMIRANOPon 09-04-2019 OVS Visit (SP) Office ([place]) ISABEL RIVERA ([id number]) 1980 F Date Time Provider Department 09/04/19 3:45 PM LUIS ANGEL HALL During your visit today, we recorded the following information about you: Temperature Pulse Respiration Blood pressure 97.6 degrees 66/minute 18/minute 115/66 Weight Height 82.2 kg 1.676 m Luis Angel Hall 09/06/2019 9:21 AM Signed PATIENT NAME: Isabel Rivera REFERRING PHYSICIAN: Timothy Mills MD [address] [place] [address] [place] [address] PRIMARY CARE PHYSICIAN: Maren James MD CHIEF [...] did not have a lupus anticoagulant. Protein LEGAL COMPLIANCE OFFICER were within expected ranges. She had negative [...] 2017. Right posterior tibial vein and associated web solutions architect veins. Follows with Dr. Bateman, vascular. She does exercise slightly 3 days a week and works a [employer] in [employer]. Medications as of September 2017 included only [...] questions satisfactorily.. Ankit Hall D.O. Medical Oncologist [place], [place] Cc. Dr. Bateman. Referring Provider: LUIS ANGEL HALL [[id number]] Allergies As of Date: 09/04/2019 Noted Allergy Reaction BACTRIM (SULFAMETHOXAZOLE-TR IMETH*09/04/2019 2 - Rash 4 - Hives Date [...] by LUIS ANGEL HALL DO on 09/06/19 [facility] PROGRESSon 09-04-2019 PROGRESS HNO ID: [id number] Author: Luis Angel Hall Service: ? Author Type: Physician Type: Progress Notes Filed: 09/06/2019 9:21 AM Note Text: PATIENT NAME: Isabel Rivera REFERRING PHYSICIAN: Timothy Mills MD [address] [place] [address] [place] [address] PRIMARY CARE PHYSICIAN: Maren James MD CHIEF [...] did not have a lupus anticoagulant. Protein LEGAL COMPLIANCE OFFICER were within expected ranges. She had negative PT gene mutation but was positive for Leiden factor V mutation. Regardless, she lifelong anticoagulation and was counseled appropriately. --- HISTORY OF PRESENT ILLNESS: This is a [...] 2017. Right posterior tibial vein and associated web solutions architect veins. Follows with Dr. Bateman, vascular. She does exercise slightly 3 days a week and works a [employer] in [employer]. Medications as of September 2017 included only [...] questions satisfactorily.. Ankit Hall D.O. Medical Oncologist [place], [place] Cc. Dr. Bateman. [facility] CNOVSPon 07-30-2019 CNOVSP Visit (SP) Office ([place]) PATRICIAAdrianFABIANISABEL LEDBETTER ([id number]) 1980 F Date Time Provider Department 07/30/19 3:45 PM LUIS ANGEL HALL HEMACL During your visit today, we recorded the following information about you: Temperature Pulse Respiration Blood pressure 98.4 degrees 61/minute 16/minute 107/69 Weight Height 80.6 kg 1.676 m Luis Angel Hall DO 08/02/2019 11:50 AM Signed PATIENT NAME: Isabel Rivera REFERRING PHYSICIAN: Timothy Mills MD [address] [place] [address] [place] [address] PRIMARY CARE PHYSICIAN: Maren James MD CHIEF [...] TIBC - CBC + DIFF (FOR REMOTE [facility] USE) - BASIC METABOLIC PNL - HEPATIC [...] 2017. Right posterior tibial vein and associated web solutions architect veins. Follows with Dr. Bateman, vascular. She does exercise slightly 3 days a week and works a [employer] in [employer]. Medications as of September 2017 included only [...] questions satisfactorily.. Ankit Hall D.O. Medical Oncologist [place], [place] Cc. Dr. Bateman. Referring Provider: TIMOTHY MILLS [[id number]] Allergies As of Date: 07/30/2019 (Not on File) Date Reviewed: 07/30/2019 Reviewed by: Lavonne Borrego - Fully Assessed Reason for Visit: Consult [173] Primary Visit Diagnosis:Acute deep vein thrombosis (DVT) of proximal vein of both lower extremities (HCC) [I82.4Y3] Order(s): LEG VEIN DVT [facility] [[id number]] Order #: [id number] FUTURE FACTOR V LEIDEN/PCR [SQFVLEID] Order #: [id number] FUTURE PROTHROMBIN GENE PCR [SQPTGENE] Order #: [id number] FUTURE PROTEIN C FUNCT [SQPRCFUN] Order #: [id number] FUTURE PROTEIN S CLOTTABLE [SQPRSCLT] Order #: [id number] FUTURE ANTITHROMBIN ACTIVITY [LGOX1UFE] Order #: [id number] FUTURE LUPUS ANTICOAG PL [SQLUPUSP] Order #: [id number] FUTURE B 2 GPI IGG AND IGM [SIJ7OUSI] Order #: [id number] FUTURE ANTI-CARDIOLIPIN AB [SQCARDIO] Order #: [id number] FUTURE HOMOCYSTEINE [SQHOMCYS] Order #: [id number] FUTURE FERRITIN BLD [SQFERR] Order #: [id number] FUTURE IRON + TIBC [SQIRON] Order #: [id number] FUTURE CBC + DIFF (FOR REMOTE [facility] USE) [SQRCBCDF] Order #: [id number] FUTURE BASIC METABOLIC PNL [SQBMP] Order #: [id number] FUTURE HEPATIC FUNCTION PNL [SQHFP] Order #: [id number] FUTURE Disposition: Return labs today. f/u 4 [...] by LUIS ANGEL HALL DO on 08/02/19 [facility] PROGRESSon 07-30-2019 PROGRESS HNO ID: [id number] Author: Luis Angel Hall Service: ? Author Type: Physician Type: Progress Notes Filed: 08/02/2019 11:50 AM Note Text: PATIENT NAME: Isabel Rivera REFERRING PHYSICIAN: Timothy Mills MD [address] [place] [address] [place] [address] PRIMARY CARE PHYSICIAN: Maren James MD CHIEF [...] young age. F/u after. Will repeat US. --- HISTORY OF PRESENT ILLNESS: This is a [...] 2017. Right posterior tibial vein and associated web solutions architect veins. Follows with Dr. Bateman, vascular. She does exercise slightly 3 days a week and works a [employer] in [employer]. Medications as of September 2017 included only [...] questions satisfactorily.. Ankit Hall D.O. Medical Oncologist [facility] [place], [place] Cc. Dr. Bateman. Normal [facility] Vital Signs Date Time Vital Sign Value Performing Clinician Facility 06-28-2023 16:00-0500 Body height 172.72 cm Maeve Moreno Other [facility] Other 06-28-2023 16:00-0500 Body mass index (BMI) [Ratio] 31.35 kg/m2 Maeve Moreno Other [facility] Other 06-28-2023 16:00-0500 Body temperature 97.3 [degF] Maeve Moreno Other [facility] Other 06-28-2023 16:00-0500 Body weight 93.53 kg Maeve Moreno Other [facility] Other 06-28-2023 16:00-0500 Diastolic blood pressure 87 mm[Hg] Maeve Moreno Other [facility] Other 06-28-2023 16:00-0500 Respiratory rate 18 /min Maeve Moreno Other [facility] Other 06-28-2023 16:00-0500 SaO2% (BldA) [Mass fraction] 98 % Maeve Moreno Other [facility] Other 06-28-2023 16:00-0500 Systolic blood pressure 141 mm[Hg] Maeve Moreno Other [facility] Other 04-05-2023 16:00-0400 Body height 172.72 cm Maeve Moreno Other [facility] Other 04-05-2023 16:00-0400 Body mass index (BMI) [Ratio] 31.23 kg/m2 Maeve Moreno Other [facility] Other 04-05-2023 16:00-0400 Body temperature 96.4 [degF] Maeve Moreno Other [facility] Other 04-05-2023 16:00-0400 Body weight 93.17 kg Maeve Moreno Other [facility] Other 04-05-2023 16:00-0400 Diastolic blood pressure 85 mm[Hg] Maeve Moreno Other [facility] Other 04-05-2023 16:00-0400 Respiratory rate 18 /min Maeve Moreno Other [facility] Other 04-05-2023 16:00-0400 SaO2% (BldA) [Mass fraction] 99 % Maeve Moreno Other [facility] Other 04-05-2023 16:00-0400 Systolic blood pressure 134 mm[Hg] Maeve Moreno Other [facility] Other 12-21-2022 17:00-0400 Body height 172.72 cm Maeve Moreno Other [facility] Other 12-21-2022 17:00-0400 Body mass index (BMI) [Ratio] 31.14 kg/m2 Maeve Moreno Other [facility] Other 12-21-2022 17:00-0400 Body temperature 96.5 [degF] Maeve Moreno Other [facility] Other 12-21-2022 17:00-0400 Body weight 92.9 kg Maeve Moreno Other [facility] Other 12-21-2022 17:00-0400 Diastolic blood pressure 84 mm[Hg] Maeve Moreno Other [facility] Other 12-21-2022 17:00-0400 Respiratory rate 18 /min Maeve Moreno Other [facility] Other 12-21-2022 17:00-0400 SaO2% (BldA) [Mass fraction] 98 % Maeve Moreno Other [facility] Other 12-21-2022 17:00-0400 Systolic blood pressure 138 mm[Hg] Maeve Moreno Other [facility] Other 09-28-2022 17:00-0500 Body height 172.72 cm Maeve Moreno Other [facility] Other 09-28-2022 17:00-0500 Body mass index (BMI) [Ratio] 31.11 kg/m2 Maeve Moreno Other [facility] Other 09-28-2022 17:00-0500 Body temperature 98.2 [degF] Maeve Moreno Other [facility] Other 09-28-2022 17:00-0500 Body weight 92.81 kg Maeve Moreno Other [facility] Other 09-28-2022 17:00-0500 Diastolic blood pressure 94 mm[Hg] Maeve Moreno Other [facility] Other 09-28-2022 17:00-0500 Respiratory rate 18 /min Maeve Moreno Other [facility] Other 09-28-2022 17:00-0500 SaO2% (BldA) [Mass fraction] 98 % Maeve Moreno Other [facility] Other 09-28-2022 17:00-0500 Systolic blood pressure 144 mm[Hg] Maeve Mroeno Other [facility] Other 07-06-2022 17:00-0500 Body height 172.72 cm Maeve Moreno Other [facility] Other 07-06-2022 17:00-0500 Body mass index (BMI) [Ratio] 30.32 kg/m2 Maeve Moreno Other [facility] Other 07-06-2022 17:00-0500 Body temperature 97.1 [degF] Maeve Sahnidank Other [facility] Other 07-06-2022 17:00-0500 Body weight 90.45 kg Maeve Moreno Other [facility] Other 07-06-2022 17:00-0500 Diastolic blood pressure 87 mm[Hg] Maeve Sahnidank Other [facility] Other 07-06-2022 17:00-0500 Respiratory rate 18 /min Maeve Tiffanie Other [facility] Other 07-06-2022 17:00-0500 SaO2% (BldA) [Mass fraction] 99 % Maeve Moreno Other [facility] Other 07-06-2022 17:00-0500 Systolic blood pressure 128 mm[Hg] Maeve Moreno Other [facility] Other 03-23-2022 16:40-0400 Body height 172.72 cm Maeve Moreno Other [facility] Other 03-23-2022 16:40-0400 Body mass index (BMI) [Ratio] 30.47 kg/m2 Maeve Moreno Other [facility] Other 03-23-2022 16:40-0400 Body temperature 96.9 [degF] Maeve Moreno Other [facility] Other 03-23-2022 16:40-0400 Body weight 90.9 kg Maeve Moreno Other [facility] Other 03-23-2022 16:40-0400 Diastolic blood pressure 80 mm[Hg] Maeve Moreno Other [facility] Other 03-23-2022 16:40-0400 Respiratory rate 18 /min Maeve Moreno Other [facility] Other 03-23-2022 16:40-0400 SaO2% (BldA) [Mass fraction] 99 % Maeve Moreno Other [facility] Other 03-23-2022 16:40-0400 Systolic blood pressure 116 mm[Hg] Maeve Moreno Other [facility] Other 08-09-2021 17:00-0500 Body height 172.72 cm Maeve Moreno Other [facility] Other 08-09-2021 17:00-0500 Body mass index (BMI) [Ratio] 30.53 kg/m2 Maeve Moreno Other [facility] Other 08-09-2021 17:00-0500 Body weight 91.08 kg Maeve Moreno Other [facility] Other 08-09-2021 17:00-0500 Diastolic blood pressure 80 mm[Hg] Maeve Moreno Other [facility] Other 08-09-2021 17:00-0500 Respiratory rate 18 /min Maeve Moreno Other [facility] Other 08-09-2021 17:00-0500 SaO2% (BldA) [Mass fraction] 99 % Maeve Moreno Other [facility] Other 08-09-2021 17:00-0500 Systolic blood pressure 142 mm[Hg] Maeve Sahnidank Other [facility] Other Encounters Encounter Date Encounter Type Care Provider Facility Start: 06-28-2023 End: 06-28-2023 ambulatory Maeve Moreno Other [facility] Other Start: 06-28-2023 Office outpatient vi sit 15 minutes Sekouparam Tiffanie [facility] Start: 06-26-2023 End: 06-26-2023 ambulatory Maeve Sahnidank Other [facility] Other Start: 06-26-2023 Telephone encounter Maeve Moreno [facility] Start: 05-07-2023 End: 05-07-2023 ambulatory Maeve Moreno Other [facility] Other Start: 05-07-2023 Telephone encounter Maeve Moreno [facility] Start: 04-05-2023 End: 04-05-2023 ambulatory Maeve Sahnidank Other [facility] Other Start: 04-05-2023 Office outpatient vi sit 25 minutes Sekouam Tiffanie [facility] Start: 03-27-2023 End: 03-27-2023 ambulatory Maeve Sahnidank Other [facility] Other Start: 03-27-2023 Telephone encounter Maeve Sahnidank [facility] Start: 03-12-2023 End: 03-12-2023 ambulatory Maeve Moreno Other [facility] Other Start: 03-12-2023 Telephone encounter Maeve Moreno [facility] Start: 12-21-2022 End: 12-21-2022 ambulatory Maeve Tiffanie Other [facility] Other Start: 12-21-2022 Office outpatient vi sit 25 minutes Maeve Sahnidank [facility] Start: 12-18-2022 End: 12-18-2022 ambulatory Sekouparam Tiffanie Other [facility] Other Start: 12-18-2022 Telephone encounter Maeve Moreno [facility] Start: 12-13-2022 End: 12-14-[address] MAEVE MORENO Facility:[facility] Start: 11-14-2022 End: 11-15-[address] MAREN JAMES . Facility:[facility] Start: 11-13-2022 Encounter for genera l adult medical examination without abnormal findings DR MAREN JAMES . [facility] Start: 11-10-2022 End: 11-11-[address] MAREN JAMES . Facility:[facility] Start: 11-10-2022 End: 11-11-2022 Encounter for general adult medical examination without abnormal findings DR MAREN JAMES . Facility:[facility] Start: 09-28-2022 End: 09-28-2022 ambulatory Maeve Moreno Other [facility] Other Start: 09-28-2022 Office outpatient vi sit 25 minutes Maeve Moreno [facility] Start: 09-26-2022 End: 09-27-[address] MAEVE MORENO Facility:[facility] Start: 07-06-2022 End: 07-06-2022 ambulatory Maeve Moreno Other [facility] Other Start: 07-06-2022 Office outpatient vi sit 25 minutes Maeve Moreno [facility] Start: 07-04-2022 End: 07-04-2022 ambulatory Maeve Moreno Other [facility] Other Start: 07-04-2022 Telephone encounter Maeve Moreno [facility] Start: 06-29-2022 End: 06-30-[address] MAEVE MORENO Facility:[facility] Start: 05-25-2022 End: 05-26-[address] MAEVE MORENO Facility:[facility] Start: 04-25-2022 End: 04-26-[address] MAEVE MORENO Facility:[facility] Start: 04-17-2022 End: 04-17-2022 ambulatory Maeve Moreno Other [facility] Other Start: 04-17-2022 Telephone encounter Maeve Moreno [facility] Start: 03-23-2022 End: 03-23-2022 ambulatory Maeve Moreno Other [facility] Other Start: 03-23-2022 Office outpatient vi sit 25 minutes Maeve Moreno [facility] Start: 03-22-2022 End: 03-23-[address] MAEVE MORENO Facility:[facility] Start: 02-06-2022 End: 02-07-[address] MAEVE MORENO Facility:[facility] Start: 01-13-2022 End: 01-14-[address] MAEVE MORENO [facility] [employer] Other Start: 01-13-2022 Telephone encounter Maeve Moreno [facility] Start: 10-04-2021 End: 10-04-2021 ambulatory Maeve Moreno Other [facility] Other Start: 10-04-2021 Telephone encounter Maeve Moreno [facility] Start: 09-14-2021 End: 09-14-2021 ambulatory Maeve Moreno Other [facility] Other Start: 09-14-2021 Telephone encounter Maeve Moreno [facility] Start: 08-09-2021 End: 08-09-2021 ambulatory Maeve Moreno Other [facility] Other Start: 08-09-2021 Office outpatient vi sit 25 minutes Maeve Moreno [facility] Start: 07-26-2021 End: 07-26-2021 ambulatory Maeve Moreno Other [facility] Other Start: 07-26-2021 Telephone encounter Maeve Moreno [facility] Start: 09-28-2020 End: 09-28-2020 ambulatory Maeve Moreno Other [facility] Other Start: 09-28-2020 Telephone encounter Maeve Moreno [facility] Payers Date Payer Category Payer Unknown [id number] 2.16.84 [id number] 1980 Unknown [id number] 2.16.84 [id number] 1980 Unknown [id number] 2.16.84 [id number] 1981 Unknown [id number] 2.16.84 [id number] 1980 Unknown [id number] 2.16.84 [id number] 1981 Unknown [id number] 2.16.84 [id number] 1981 Unknown [id number] 2.16.84 [id number] 1980 Unknown [id number] 2.16.84 [id number] 1980 Unknown [id number] 2.16.84 [id number] 1980 Unknown [id number] 2.16.84 [id number] 1958 Private Health Insurance [id number] Social History Date Type Detail Facility Unknown if ever smoked [facility] Other Sex Assigned At Sex Assigned At Bir th [facility] Other Clinical Notes 09-28-2020 to 06-28-2023 Note [...] She was informed that they may need XEROX MACHINE OPERATOR in near future. Will refer to [...] more than 140s. She has no proteinuria. [facility] Other 09-18-2023 Evaluation note* Encounter Date Diagnosis Assessment Notes Treatment Notes Treatment Clinical Notes Apr, Polycystic dysplastic kidney (ICD-10 - Q61.3) [facility] Other 08-17-2023 Evaluation note* Encounter Date Diagnosis [...] She was informed that they may need XEROX MACHINE OPERATOR in near future. Will refer to [...] more than 40s. She has no proteinuria. [facility] Other 05-04-2023 Evaluation note* Encounter Date Diagnosis [...] She was informed that they may need XEROX MACHINE OPERATOR in near future. Will refer to [...] more than 140s. She has no proteinuria. [facility] Other 02-09-2023 Evaluation note* Encounter Date Diagnosis [...] She was informed that they may need XEROX MACHINE OPERATOR in near future. Will refer to [...] to check blood pressure at my office. [facility] Other 11-17-2022 Evaluation note* Encounter Date Diagnosis [...] She was informed that they may need XEROX MACHINE OPERATOR in near future. Will refer to [...] She has no bleeding events or hematuria. [facility] Other 08-04-2022 Evaluation note* Encounter Date Diagnosis [...] She was informed that they may need XEROX MACHINE OPERATOR in near future. Will refer to [...] She has no bleeding events or hematuria. [facility] Other [id number] Evaluation note* Encounter Date Diagnosis Assessment Notes Treatment Notes Treatment Clinical Notes December, Polycystic dysplastic kidney (ICD-10 - Q61.3) December, CKD (chronic kidney disease) stage 2, GFR 60-89 ml/min (ICD-10 - N18.2) December, Factor V Leiden (ICD-10 - D68.51) [facility] Other [id number] Evaluation note* Encounter Date Diagnosis Assessment Notes Treatment Notes Treatment Clinical Notes Sep, Polycystic dysplastic kidney (ICD-10 - Q61.3) [facility] Other Evaluation noteNort [email or web address] Other Evaluation noteNo [email or web address] Other History general Narrative - [email or web address] Other History general Narrative - Reported* Type Description Date Medical History PCOS Medical History previous blood clot in leg X 2 Medical History CAPILLARY HEMANGIOMA Medical History FACTOR V LEIDEN MUTATION Surgical History WISDOM TEETH X4 Hospitalization History CHILD X 2 Hospitalization History BLOOD CLOT [facility] [employer] Other History general Narrative - Reported* Type Description Date Medical History PCOS Medical History previous blood clot in leg X 2 Medical History CAPILLARY HEMANGIOMA Medical History FACTOR V LEIDEN MUTATION Surgical History WISDOM TEETH X4 Surgical History EVLT ON RIGHT LEG Hospitalization History CHILD X 2 Hospitalization History BLOOD CLOT [facility] [employer] Other Summary Purpose Family History No Family History Records FoundNo Family History Records Found Advance Directives No Advanced Directives Records FoundNo Advanced Directives Records Found Additional Source Comments INFORMATION SOURCE (unrecogn ized section and content) DATE CREATED AUTHOR 09/06/2019 [facility] DATE CREATED AUTHOR AUTHOR'S ORGANIZ ATION 12/17/2022 [...] BE BASED ON THE PRIMARY CLINICAL RECORDS. [facility]. provides no warranty or guarantee of the accuracy or completeness of information in this document.
== END 2023-08-16 14:55 | disposition home or self-care (01) ==
LOC: VC 14:55
PROVIDERS: PCP Radiology Diagnostic Radiology; Visit Provider Radiology Diagnostic Radiology
DX: I83.813 Varicose veins of bilateral lower extremities with pain (principal)
CPT/HCPCS: 36471

== ENCOUNTER 2023-09-11 15:10 | Outpatient (OUT) | payer OTHER, SELFPAY ==
--- NOTE | 2023-09-11 15:11 | VEIN_ITS ---
Patient Name: BRYON BROCK MR#: [id number] : 1980 Exam Date: 09/11/2023 Ordering Doctor: DR ANDREAS BETANCOURT M.D. RADIOLOGY REPORT PROCEDURE: FACILITY EST [facility] - OFFICE VISIT FOLLOW UP COMPARISON: [facility] EST [facility], 07/11/2023. [facility] EST [facility], 06/18/2023. PROGRESS NOTES: The patient reports interval development of a sore along the left lateral ankle. The patient reports moderate pain as this rubs against her shoe. The patient has concerned that she has developed an infection. The patient also reports that she is going to [place] next week and is unable to follow-up if needed. Physical exam demonstrates a 2 x 1 cm skin ulceration along the left lateral ankle just below the lateral malleolus. The patient reports this was an area of injection sclerotherapy in this likely represents an ulceration related to the injections. There is a formed eschar over the ulceration with a 4 x 3 cm area of mild erythema. No swelling in this region. The area is moderately tender to touch. No seeping or additional evidence to suggest a cellulitis or abscess. This likely represents a post-injection skin ulceration. I do not believe this is infected. In light of the patient's trip to [place], I did prescribe her Keflex 500 milligrams b.i.d. For 14 days. We also gave the patient 4x4s and paper tape to cover this area to prevent rubbing from her shoes. I instructed the patient to put antibiotic ointment over this wound 2 times per day until healed. She was instructed to call for any changes. VEIN/[facility] EST LMTD IMPRESSION: 1. Post sclerotherapy skin ulceration of the left lateral ankle PLAN: 1. Apply antibiotic ointment 2 times per day and cover the affected area with a 4 x 4 and paper tape 2. Keflex 500 milligrams b.i.d. For 14 days Nurse notes, history and physical were reviewed and confirmed, see attached forms. The nurse was present throughout the physical exam and consultation Dictated by: Andreas Betancourt MD on 09/11/2023 at 15:37 Approved by: Andreas Betancourt MD on 09/11/2023 at 15:47
--- OUTSIDE RECORDS SUMMARY | 2023-09-11 15:15 | XMS_ITS | CCD ---
Author Name Unknown Address [address] [place] [address] Organization [facility] Care Team Providers Care Salvage Winder Name Role Phone Maeve Moreno Unavailable DR [...] Unavailable ANGEL .DR ENGEL Primary Care Unavailable ITFFANIE, DR BEAL Admitting Unavailable TIFFANIE, DR BEAL [...] Sulfonamides (Antibiotic) Propensity to adverse reactions rash [employer] Other Medications Current Medications Medication Drug Class(es) [...] 12-15-2022 PTH, Intact 65 pg/mL Normal 15-65 [facility] Comment on above: Performed By: #### L IPID, CMP, TSH, T7 #### [facility] [address] [address] [address] Jessica Mosqueda HEMOGRAM AND PLATELon 2022 Hematocrit (Bld) [Volume fraction] 41.0 % Normal 36.0-48.0 [facility] Comment on above: Performed By: #### H H #### [facility] [address] [place] [address] Dr. Jessica Mosqueda Hemoglobin (Bld) [Mass/Vol] 13.0 g/dL Normal 12.0-16.0 [facility] Comment on above: Performed By: #### H H #### [facility] [address] [place] [address] Dr. Jessica Mosqueda MCH (RBC) [Entitic mass] 28.6 pg Normal 26.7-34.0 [facility] Comment on above: Performed By: #### H H #### [facility] [address] [place] [address] Dr. Jessica Mosqueda MCHC (RBC) [Mass/Vol] 31.7 g/dL Normal 29.9-35.2 [facility] Comment on above: Performed By: #### H H #### [facility] [address] [place] [address] Dr. Jessica Mosqueda MCV (RBC) [Entitic vol] 90.3 fL Normal 81.0-99.0 [facility] Comment on above: Performed By: #### H H #### [facility] [address] [place] [address] Dr. Jessica Mosqueda PLT 133 103/ul Critically low 150-450 [facility] Comment on above: Performed By: #### H H #### [facility] [address] [place] [address] Dr. Jessica Mosqueda RBC 4.54 106/ul Normal 4.20-5.40 [facility] Comment on above: Performed By: #### H H #### [facility] [address] [place] [address] Dr. Jessica Mosqueda WBC 9.0 103/ul Normal 4.0-11.0 [facility] Comment on above: Performed By: #### H H #### [facility] [address] [place] [address] Dr. Jessica Mosqueda PHOSPHORUSon 12-13-2022 Phosphate [Mass/Vol] 4.3 mg/dL Normal 2.6-4.7 [facility] Comment on above: Performed By: #### P THINT #### [facility] [address] [place] [address] Dr. Jessica Mosqueda PROF 14(COMP METB)on 023 Albumin [Mass/Vol] 3.8 g/dL Normal 3.4-5.0 [facility] Comment on above: Performed By: #### P THINT #### [facility] [address] [place] [address] Dr. Jessica Mosqueda Albumin/Globulin [Mass ratio] 1.1 {ratio} Normal [facility] Comment on above: Performed By: #### P THINT #### [facility] [address] [place] [address] Dr. Jessica Mosqueda ALP [Catalytic activity/Vol] 36 U/L Critically low 46-116 [facility] Comment on above: Performed By: #### P THINT #### [facility] [address] [place] [address] Dr. Jessica Mosqueda ALT [Catalytic activity/Vol] 14 U/L Normal 14-59 [facility] Comment on above: Performed By: #### P THINT #### [facility] [address] [place] [address] Dr. Jessica Mosqueda Anion gap [Moles/Vol] 11.9 mmol/L Normal [facility] Comment on above: Performed By: #### P THINT #### [facility] [address] [place] [address] Dr. Jessica Mosqueda AST [Catalytic activity/Vol] 13 U/L Critically low 15-37 [facility] Comment on above: Performed By: #### P THINT #### [facility] [address] [address] [address] Jessica Mosqueda Bilirubin [Mass/Vol] 0.3 mg/dL Normal 0.2-1.0 [facility] Comment on above: Performed By: #### P THINT #### [facility] [address] [address] [address] Jessica Mosqueda Calcium [Mass/Vol] 9.0 mg/dL Normal 8.5-10.1 [facility] Comment on above: Performed By: #### P THINT #### [facility] [address] [address] [address] Jessica Mosqueda Chloride [Moles/Vol] 107 mmol/L Normal 98-107 [facility] Comment on above: Performed By: #### P THINT #### [facility] [address] [address] [address] Jessica Mosqueda CO2 [Moles/Vol] 28.1 mmol/L Normal 21.0-32.0 [facility] Comment on above: Performed By: #### P THINT #### [facility] [address] [place] [address] Dr. Jessica Mosqueda Creatinine [Mass/Vol] 2.10 mg/dL Critically high 0.55-1.02 [facility] Comment on above: Performed By: #### P THINT #### [facility] [address] [place] [address] Dr. Jessica oMsqueda EGFR-AF LITHUANIAN 31 mL/min/1.73m2 Critically low >=60 [facility] Comment on above: Performed By: #### P THINT #### [facility] [address] [address] [address] Jessica Mosqueda EGFR-NON AF LITHUANIAN 26 mL/min/1.73m2 Critically low >=60 [facility] Comment on above: Performed By: #### P THINT #### [facility] [address] [place] [address] Dr. Jessica Mosqueda Globulin (S) [Mass/Vol] 3.6 g/dL Normal [facility] Comment on above: Performed By: #### P THINT #### [facility] [address] [address] [address] Jessica Mosqueda Glucose [Mass/Vol] 82 mg/dL Normal 74-106 [facility] Comment on above: Performed By: #### P THINT #### [facility] [address] [place] [address] Dr. Jessica Mosqueda Potassium [Moles/Vol] 4.0 mmol/L Normal 3.5-5.1 [facility] Comment on above: Performed By: #### P THINT #### [facility] [address] [place] [address] Dr. Jessica Mosqueda Protein [Mass/Vol] 7.4 g/dL Normal 6.4-8.2 [facility] Comment on above: Performed By: #### P THINT #### [facility] [address] [address] [address] Jessica Mosqueda Sodium [Moles/Vol] 143 mmol/L Normal 136-145 [facility] Comment on above: Performed By: #### P THINT #### [facility] [address] [place] [address] Dr. Jessica Mosqueda Urea nitrogen [Mass/Vol] 23.0 mg/dL Critically high 7.0-18.0 [facility] Comment on above: Performed By: #### P THINT #### [facility] [address] [place] [address] Dr. Jessica Mosqueda Urea nitrogen/Creatinine [Mass ratio] 11.0 mg/mg Normal [facility] Comment on above: Performed By: #### P THINT #### [facility] [address] [place] [address] Dr. Jessica Mosqueda MG MAMM SCREEN 3D MATILDA CADon 11-14-2022 MG MAMM SCREEN 3D MATILDA CAD Patient: ISABEL RIVERA Exam Date: 11/14/2022 : 1980 Gender:F Ordering : DR MAREN JAMES . Admission #: [id number] Family : Order #: [id number] CLICK HERE TO VIEW EXAM RADIOLOGY REPORT [...] unknown cancer at age 51. LOCATION: [facility] BREAST COMPOSITION: Extremely dense, which lowers [...] M.D. on 11/15/2022 at 07:51 Normal [facility] INSULINon 11-11-2022 Insulin 7.2 uIU/mL Normal 2.6-24.9 [facility] Comment on above: Performed By: #### I NSULIN #### [facility] [address] [place] [address] Dr. Jessica Mosqueda CBC AUTO DIFFon 11-10-2022 BASO # 0.0 103/ul Normal 0.0-0.1 [facility] Comment on above: Performed By: #### L IPID, CMP, TSH, T7 #### [facility] [address] [address] [address] Jessica Mosqueda Basophils/100 WBC (Bld) 0.5 % Normal 0.2-2.0 [facility] Comment on above: Performed By: #### L IPID, CMP, TSH, T7 #### [facility] [address] [address] [address] Jessica Mosqueda EO # 0.3 103/ul Normal 0.0-0.7 [facility] Comment on above: Performed By: #### L IPID, CMP, TSH, T7 #### [facility] [address] [place] [address] Dr. Jessica Mosqueda Eosinophils/100 WBC (Bld) 3.6 % Normal 0.9-7.0 [facility] Comment on above: Performed By: #### L IPID, CMP, TSH, T7 #### [facility] [address] [place] [address] Dr. Jessica Mosqueda Erythrocyte distribution width (RBC) [Ratio] 13.2 % Normal 11.0-15.0 [facility] Comment on above: Performed By: #### L IPID, CMP, TSH, T7 #### [facility] [address] [place] [address] Dr. Jessica Mosqueda Hematocrit (Bld) [Volume fraction] 41.9 % Normal 36.0-48.0 [facility] Comment on above: Performed By: #### L IPID, CMP, TSH, T7 #### [facility] [address] [place] [address] Dr. Jessica Mosqueda Hemoglobin (Bld) [Mass/Vol] 13.3 g/dL Normal 12.0-16.0 [facility] Comment on above: Performed By: #### L IPID, CMP, TSH, T7 #### [facility] [address] [place] [address] Dr. Jessiac Mosqueda IG # 0.02 10e3/ul Normal 0.00-0.03 [facility] Comment on above: Performed By: #### L IPID, CMP, TSH, T7 #### [facility] [address] [place] [address] Dr. Jessica Mosqueda IG % 0.3 % Normal 0.0-0.5 [facility] Comment on above: Performed By: #### L IPID, CMP, TSH, T7 #### [facility] [address] [place] [address] Dr. Jessica Mosqueda LYMPH # 2.2 103/ul Normal 1.2-3.8 [facility] Comment on above: Performed By: #### L IPID, CMP, TSH, T7 #### [facility] [address] [place] [address] Dr. Jessica Mosqueda Lymphocytes/100 WBC (Bld) 29.6 % Normal 20.5-60.0 [facility] Comment on above: Performed By: #### L IPID, CMP, TSH, T7 #### [facility] [address] [address] [address] Jessica Mosqueda MANUAL DIFF REQ NO Normal [facility] Comment on above: Performed By: #### L IPID, CMP, TSH, T7 #### [facility] [address] [place] [address] Dr. Jessica Mosqueda MCH (RBC) [Entitic mass] 28.9 pg Normal 26.7-34.0 [facility] Comment on above: Performed By: #### L IPID, CMP, TSH, T7 #### [facility] [address] [place] [address] Dr. Jessica Mosqueda MCHC (RBC) [Mass/Vol] 31.7 g/dL Normal 29.9-35.2 [facility] Comment on above: Performed By: #### L IPID, CMP, TSH, T7 #### [facility] [address] [place] [address] Dr. Jessica Mosqueda MCV (RBC) [Entitic vol] 91.1 fL Normal 81.0-99.0 [facility] Comment on above: Performed By: #### L IPID, CMP, TSH, T7 #### [facility] [address] [place] [address] Dr. Jessica Mosqueda MONO # 0.5 103/ul Normal 0.3-0.8 [facility] Comment on above: Performed By: #### L IPID, CMP, TSH, T7 #### [facility] [address] [place] [address] Dr. Jessica Mosqueda Monocytes/100 WBC (Bld) 6.1 % Normal 1.7-12.0 [facility] Comment on above: Performed By: #### L IPID, CMP, TSH, T7 #### [facility] [address] [place] [address] Dr. Jessica Mosqueda NEUT # 4.4 103/ul Normal 1.4-6.5 [facility] Comment on above: Performed By: #### L IPID, CMP, TSH, T7 #### [facility] [address] [address] [address] Jessica Mosqueda Neutrophils/100 WBC (Bld) 59.9 % Normal 43.0-75.0 [facility] Comment on above: Performed By: #### L IPID, CMP, TSH, T7 #### [facility] [address] [address] [address] Jessica Mosqueda Platelet mean volume (Bld) [Entitic vol] 12.5 fL Normal 9.5-13.5 [facility] Comment on above: Performed By: #### L IPID, CMP, TSH, T7 #### [facility] [address] [place] [address] Dr. Jessica Mosqueda PLT 157 103/ul Normal 150-450 [facility] Comment on above: Performed By: #### L IPID, CMP, TSH, T7 #### [facility] [address] [place] [address] Dr. Jessica Mosqueda RBC 4.60 106/ul Normal 4.20-5.40 [facility] Comment on above: Performed By: #### L IPID, CMP, TSH, T7 #### [facility] [address] [place] [address] Dr. Jessica Mosqueda WBC 7.3 103/ul Normal 4.0-11.0 [facility] Comment on above: Performed By: #### L IPID, CMP, TSH, T7 #### [facility] [address] [place] [address] Dr. Jessica Mosqueda FREE THYROXINE INDEX T7on FTI 2.51 Normal 1.30-4.50 [facility] Comment on above: Performed By: #### L IPID, CMP, TSH, T7 #### [facility] [address] [place] [address] Dr. Jessica Mosqueda T3U 38.0 % Normal 30.0-39.0 [facility] Comment on above: Performed By: #### L IPID, CMP, TSH, T7 #### [facility] [address] [address] [address] Jessica Mosqueda T4 [Mass/Vol] 6.60 ug/dL Normal 4.80-13.90 [facility] Comment on above: Performed By: #### L IPID, CMP, TSH, T7 #### [facility] [address] [address] [address] Jessica Mosqueda GLYCOHEMOGLOBIN A1Con 2022 ADA RECOMMENDATION SEE BELOW Normal [facility] Comment on above: Result Comment: ADA RECOMMENDED LIMIT 4.0 - 6.0 ADA THERAPEUTIC TARGET < 7.0 ACTION SUGGESTED > 7.0 Performed By: #### P THINT #### [facility] [address] [address] [address] Jessica Mosqueda Glucose [Mass/Vol] 111 mg/dL Normal [facility] Comment on above: Performed By: #### P THINT #### [facility] [address] [address] [address] Jessica Mosqueda HbA1c (Bld) [Mass fraction] 5.5 % Normal 4.5-6.2 [facility] Comment on above: Performed By: #### P THINT #### [facility] [address] [address] [address] Jessica Mosqueda IRONon 11-10-2022 Iron [Mass/Vol] 58.0 ug/dL Normal 50.0-170.0 [facility] Comment on above: Performed By: #### P THINT #### [facility] [address] [place] [address] Dr. Jessica Mosqueda LIPID PROFILEon 11-10-2022 CHOL-HDL RATIO NORM SEE BELOW Normal [facility] Comment on above: Result Comment: 3.3 - 4.4 LOW RISK 4.4 - 7.1 AVERAGE RISK 7.1 - 11.0 MODERATE RISK >11.0 HIGH RISK Performed By: #### L IPID, CMP, TSH, T7 #### [facility] [address] [address] [address] Jessica Mosqueda Cholesterol [Mass/Vol] 205 mg/dL Critically high <=200 [facility] Comment on above: Performed By: #### L IPID, CMP, TSH, T7 #### [facility] [address] [address] [address] Jessica Mosqueda Cholesterol in HDL [Mass/Vol] 60 mg/dL Normal 40-60 [facility] Comment on above: Performed By: #### L IPID, CMP, TSH, T7 #### [facility] [address] [address] [address] Jessica Mosqueda Cholesterol in LDL [Mass/Vol] 127.4 mg/dL Normal [facility] Comment on above: Performed By: #### L IPID, CMP, TSH, T7 #### [facility] [address] [address] [address] Jessica Mosqueda Cholesterol.total/Cho lesterol in HDL [Mass ratio] 3.4 {ratio} Normal [facility] Comment on above: Performed By: #### L IPID, CMP, TSH, T7 #### [facility] [address] [address] [address] Jessica Mosqueda HDL NORMAL > or = 60 mg/dl - LOW CARDIOVASCULAR RISK <40 mg/dl - HIGH CARDIOVASCULAR RISK Normal [facility] Comment on above: Performed By: #### L IPID, CMP, TSH, T7 #### [facility] [address] [address] [address] Jessica Mosqueda LDL CALC NORMAL SEE BELOW Normal [facility] Comment on above: Result Comment: <100 mg/dl OPTIMAL 100 - 129 mg/dl NEAR OR ABOVE OPTIMAL 130 - 159 mg/dl BORDERLINE HIGH 160 - 189 mg/dl HIGH >190 mg/dl VERY HIGH Performed By: #### L IPID, CMP, TSH, T7 #### [facility] [address] [address] [address] Jessica Mosqueda Triglyceride [Mass/Vol] 88 mg/dL Normal <=150 [facility] Comment on above: Performed By: #### L IPID, CMP, TSH, T7 #### [facility] [address] [address] [address] Jessica Mosqueda VLDL CALC 17.6 mg/dL Normal [facility] Comment on above: Performed By: #### L IPID, CMP, TSH, T7 #### [facility] [address] [address] [address] Jessica Mosqueda PROF 14(COMP METB)on 023 Albumin [Mass/Vol] 3.8 g/dL Normal 3.4-5.0 [facility] Comment on above: Performed By: #### L IPID, CMP, TSH, T7 #### [facility] [address] [place] [address] Dr. Jessica Mosqueda Albumin/Globulin [Mass ratio] 1.1 {ratio} Normal [facility] Comment on above: Performed By: #### L IPID, CMP, TSH, T7 #### [facility] [address] [place] [address] Dr. Jessica Mosqueda ALP [Catalytic activity/Vol] 37 U/L Critically low 46-116 [facility] Comment on above: Performed By: #### L IPID, CMP, TSH, T7 #### [facility] [address] [place] [address] Dr. Jessica Mosqueda ALT [Catalytic activity/Vol] 16 U/L Normal 14-59 [facility] Comment on above: Performed By: #### L IPID, CMP, TSH, T7 #### [facility] [address] [place] [address] Dr. Jessica Mosqueda Anion gap [Moles/Vol] 13.7 mmol/L Normal [facility] Comment on above: Performed By: #### L IPID, CMP, TSH, T7 #### [facility] [address] [place] [address] Dr. Jessica Mosqueda AST [Catalytic activity/Vol] 14 U/L Critically low 15-37 [facility] Comment on above: Performed By: #### L IPID, CMP, TSH, T7 #### [facility] [address] [place] [address] Dr. Jessica Mosqueda Bilirubin [Mass/Vol] 0.4 mg/dL Normal 0.2-1.0 [facility] Comment on above: Performed By: #### L IPID, CMP, TSH, T7 #### [facility] [address] [address] [address] Jessica Mosqueda Calcium [Mass/Vol] 9.6 mg/dL Normal 8.5-10.1 [facility] Comment on above: Performed By: #### L IPID, CMP, TSH, T7 #### [facility] [address] [address] [address] Jessica Mosqueda Chloride [Moles/Vol] 107 mmol/L Normal 98-107 [facility] Comment on above: Performed By: #### L IPID, CMP, TSH, T7 #### [facility] [address] [address] [address] Jessica Mosqueda CO2 [Moles/Vol] 27.5 mmol/L Normal 21.0-32.0 [facility] Comment on above: Performed By: #### L IPID, CMP, TSH, T7 #### [facility] [address] [address] [address] Jessica Mosqueda Creatinine [Mass/Vol] 1.74 mg/dL Critically high 0.55-1.02 [facility] Comment on above: Performed By: #### L IPID, CMP, TSH, T7 #### [facility] [address] [address] [address] Jessica Mosqueda EGFR-AF LITHUANIAN 39 mL/min/1.73m2 Critically low >=60 [facility] Comment on above: Performed By: #### L IPID, CMP, TSH, T7 #### [facility] [address] [address] [address] Jessica Mosqueda EGFR-NON AF LITHUANIAN 32 mL/min/1.73m2 Critically low >=60 [facility] Comment on above: Performed By: #### L IPID, CMP, TSH, T7 #### [facility] [address] [address] [address] Jessica Mosqueda Globulin (S) [Mass/Vol] 3.4 g/dL Normal [facility] Comment on above: Performed By: #### L IPID, CMP, TSH, T7 #### [facility] [address] [address] [address] Jessica Mosqueda Glucose [Mass/Vol] 95 mg/dL Normal 74-106 [facility] Comment on above: Performed By: #### L IPID, CMP, TSH, T7 #### [facility] [address] [place] [address] Dr. Jessica Mosqueda Potassium [Moles/Vol] 4.2 mmol/L Normal 3.5-5.1 [facility] Comment on above: Performed By: #### L IPID, CMP, TSH, T7 #### [facility] [address] [address] [address] Jessica Mosqueda Protein [Mass/Vol] 7.2 g/dL Normal 6.4-8.2 [facility] Comment on above: Performed By: #### L IPID, CMP, TSH, T7 #### [facility] [address] [place] [address] Dr. Jessica Mosqueda Sodium [Moles/Vol] 144 mmol/L Normal 136-145 [facility] Comment on above: Performed By: #### L IPID, CMP, TSH, T7 #### [facility] [address] [address] [address] Jessica Mosqueda Urea nitrogen [Mass/Vol] 25.0 mg/dL Critically high 7.0-18.0 [facility] Comment on above: Performed By: #### L IPID, CMP, TSH, T7 #### [facility] [address] [place] [address] Dr. Jessica Mosqueda Urea nitrogen/Creatinine [Mass ratio] 14.4 mg/mg Normal [facility] Comment on above: Performed By: #### L IPID, CMP, TSH, T7 #### [facility] [address] [place] [address] Dr. Jessica Mosqueda TSHon 11-10-2022 TSH 1.244 uIU/mL Normal 0.358-3.740 [facility] Comment on above: Performed By: #### L IPID, CMP, TSH, T7 #### [facility] [address] [place] [address] Dr. Jessica Mosqueda PTH INTACTon 09-28-2022 PTH, Intact 43 pg/mL Normal 15-65 [facility] Comment on above: Performed By: #### L IPID, CMP, TSH, T7 #### [facility] [address] [address] [address] Jessica Mosqueda HEMOGRAM AND PLATELon 2022 Hematocrit (Bld) [Volume fraction] 39.0 % Normal 36.0-48.0 [facility] Comment on above: Performed By: #### H H #### [facility] [address] [address] [address] Jessica Mosqueda Hemoglobin (Bld) [Mass/Vol] 12.3 g/dL Normal 12.0-16.0 [facility] Comment on above: Performed By: #### H H #### [facility] [address] [place] [address] Dr. Jessica Mosqueda MCH (RBC) [Entitic mass] 29.1 pg Normal 26.7-34.0 [facility] Comment on above: Performed By: #### H H #### [facility] [address] [place] [address] Dr. Jessica Mosqueda MCHC (RBC) [Mass/Vol] 31.5 g/dL Normal 29.9-35.2 [facility] Comment on above: Performed By: #### H H #### [facility] [address] [place] [address] Dr. Jessica Mosqueda MCV (RBC) [Entitic vol] 92.4 fL Normal 81.0-99.0 [facility] Comment on above: Performed By: #### H H #### [facility] [address] [address] [address] Jessica Mosqueda PLT 131 103/ul Critically low 150-450 [facility] Comment on above: Performed By: #### H H #### [facility] [address] [id number] Dr. Jessica Mosqueda RBC 4.22 106/ul Normal 4.20-5.40 [facility] Comment on above: Performed By: #### H H #### [facility] [address] [place] [address] Dr. Jessica Mosqueda WBC 8.6 103/ul Normal 4.0-11.0 [facility] Comment on above: Performed By: #### H H #### [facility] [address] [place] [address] Dr. Jessica Mosqueda PHOSPHORUSon 09-26-2022 Phosphate [Mass/Vol] 4.3 mg/dL Normal 2.6-4.7 [facility] Comment on above: Performed By: #### P THINT #### [facility] [address] [place] [address] Dr. Jessica Mosqueda PROF 14(COMP METB)on 023 Albumin [Mass/Vol] 3.9 g/dL Normal 3.4-5.0 [facility] Comment on above: Performed By: #### P THINT #### [facility] [address] [place] [address] Dr. Jessica Mosqueda Albumin/Globulin [Mass ratio] 1.1 {ratio} Normal [facility] Comment on above: Performed By: #### P THINT #### [facility] [address] [place] [address] Dr. Jessica Mosqueda ALP [Catalytic activity/Vol] 34 U/L Critically low 46-116 [facility] Comment on above: Performed By: #### P THINT #### [facility] [address] [place] [address] Dr. Jessica Mosqueda ALT [Catalytic activity/Vol] 13 U/L Critically low 14-59 [facility] Comment on above: Performed By: #### P THINT #### [facility] [address] [place] [address] Dr. Jessica Mosqueda Anion gap [Moles/Vol] 13.6 mmol/L Normal [facility] Comment on above: Performed By: #### P THINT #### [facility] [address] [place] [address] Dr. Jessica Mosqueda AST [Catalytic activity/Vol] 9 U/L Critically low 15-37 [facility] Comment on above: Performed By: #### P THINT #### [facility] [address] [address] [address] Jessica Mosqueda Bilirubin [Mass/Vol] 0.3 mg/dL Normal 0.2-1.0 [facility] Comment on above: Performed By: #### P THINT #### [facility] [address] [address] [address] Jessica Mosqueda Calcium [Mass/Vol] 9.5 mg/dL Normal 8.5-10.1 [facility] Comment on above: Performed By: #### P THINT #### [facility] [address] [address] [address] Jessica Mosqueda Chloride [Moles/Vol] 105 mmol/L Normal 98-107 [facility] Comment on above: Performed By: #### P THINT #### [facility] [address] [address] [address] Jessica Mosqueda CO2 [Moles/Vol] 24.7 mmol/L Normal 21.0-32.0 [facility] Comment on above: Performed By: #### P THINT #### [facility] [address] [address] [address] Jessica Mosqueda Creatinine [Mass/Vol] 1.67 mg/dL Critically high 0.55-1.02 [facility] Comment on above: Performed By: #### P THINT #### [facility] [address] [address] [address] Jessica Mosqueda EGFR-AF LITHUANIAN 41 mL/min/1.73m2 Critically low >=60 [facility] Comment on above: Performed By: #### P THINT #### [facility] [address] [address] [address] Jessica Mosqueda EGFR-NON AF LITHUANIAN 34 mL/min/1.73m2 Critically low >=60 [facility] Comment on above: Performed By: #### P THINT #### [facility] [address] [address] [address] Jessica Mosqueda Globulin (S) [Mass/Vol] 3.5 g/dL Normal [facility] Comment on above: Performed By: #### P THINT #### [facility] [address] [address] [address] Jessica Mosqueda Glucose [Mass/Vol] 94 mg/dL Normal 74-106 [facility] Comment on above: Performed By: #### P THINT #### [facility] [address] [address] [address] Jessica Mosqueda Potassium [Moles/Vol] 4.4 mmol/L Normal 3.5-5.1 [facility] Comment on above: Performed By: #### P THINT #### [facility] [address] [address] [address] Jessica Mosqueda Protein [Mass/Vol] 7.4 g/dL Normal 6.4-8.2 [facility] Comment on above: Performed By: #### P THINT #### [facility] [address] [place] [address] Dr. Jessica Mosqueda Sodium [Moles/Vol] 139 mmol/L Normal 136-145 [facility] Comment on above: Performed By: #### P THINT #### [facility] [address] [address] [address] Jessica Mosqueda Urea nitrogen [Mass/Vol] 29.0 mg/dL Critically high 7.0-18.0 [facility] Comment on above: Performed By: #### P THINT #### [facility] [address] [address] [address] Jessica Mosqueda Urea nitrogen/Creatinine [Mass ratio] 17.4 mg/mg Normal [facility] Comment on above: Performed By: #### P THINT #### [facility] [address] [address] [address] Jessica Mosqueda PTH INTACTon 06-30-2022 PTH, Intact 64 pg/mL Normal 15-65 [facility] Comment on above: Performed By: #### P THINT #### [facility] [address] [place] [address] Dr. Jessica Mosqueda HEMOGRAM AND PLATELon 2021 Hematocrit (Bld) [Volume fraction] 37.5 % Normal 36.0-48.0 [facility] Comment on above: Performed By: #### P THINT #### [facility] [address] [place] [address] Dr. Jessica Mosqueda Hemoglobin (Bld) [Mass/Vol] 12.1 g/dL Normal 12.0-16.0 [facility] Comment on above: Performed By: #### P THINT #### [facility] [address] [place] [address] Dr. Jessica Mosqueda MCH (RBC) [Entitic mass] 29.0 pg Normal 26.7-34.0 [facility] Comment on above: Performed By: #### P THINT #### [facility] [address] [place] [address] Dr. Jessica Mosqueda MCHC (RBC) [Mass/Vol] 32.3 g/dL Normal 29.9-35.2 [facility] Comment on above: Performed By: #### P THINT #### [facility] [address] [place] [address] Dr. Jessica Mosqueda MCV (RBC) [Entitic vol] 89.9 fL Normal 81.0-99.0 [facility] Comment on above: Performed By: #### P THINT #### [facility] [address] [place] [address] Dr. Jessica Mosqueda PLT 170 103/ul Normal 150-450 [facility] Comment on above: Performed By: #### P THINT #### [facility] [address] [place] [address] Dr. Jessica Mosqueda RBC 4.17 106/ul Critically low 4.20-5.40 [facility] Comment on above: Performed By: #### P THINT #### [facility] [address] [place] [address] Dr. Jessica Mosqueda WBC 9.4 103/ul Normal 4.0-11.0 [facility] Comment on above: Performed By: #### P THINT #### [facility] [address] [place] [address] Dr. Jessica Mosqueda PHOSPHORUSon 06-29-2022 Phosphate [Mass/Vol] 3.8 mg/dL Normal 2.6-4.7 [facility] Comment on above: Performed By: #### L IPID, CMP, TSH, T7 #### [facility] [address] [place] [address] Dr. Jessica Mosqueda PROF 14(COMP METB)on 022 Albumin [Mass/Vol] 4.0 g/dL Normal 3.4-5.0 [facility] Comment on above: Performed By: #### L IPID, CMP, TSH, T7 #### [facility] [address] [place] [address] Dr. Jessica Mosqueda Albumin/Globulin [Mass ratio] 1.2 {ratio} Normal [facility] Comment on above: Performed By: #### L IPID, CMP, TSH, T7 #### [facility] [address] [place] [address] Dr. Jessica Mosqueda ALP [Catalytic activity/Vol] 38 U/L Critically low 46-116 [facility] Comment on above: Performed By: #### L IPID, CMP, TSH, T7 #### [facility] [address] [place] [address] Dr. Jessica Mosqueda ALT [Catalytic activity/Vol] 13 U/L Critically low 14-59 [facility] Comment on above: Performed By: #### L IPID, CMP, TSH, T7 #### [facility] [address] [place] [address] Dr. Jessica Mosqueda Anion gap [Moles/Vol] 13.1 mmol/L Normal [facility] Comment on above: Performed By: #### L IPID, CMP, TSH, T7 #### [facility] [address] [place] [address] Dr. Jessica Mosqueda AST [Catalytic activity/Vol] 14 U/L Critically low 15-37 [facility] Comment on above: Performed By: #### L IPID, CMP, TSH, T7 #### [facility] [address] [place] [address] Dr. Jessica Mosqueda Bilirubin [Mass/Vol] 0.4 mg/dL Normal 0.2-1.0 [facility] Comment on above: Performed By: #### L IPID, CMP, TSH, T7 #### [facility] [address] [address] [address] Jessica Mosqueda Calcium [Mass/Vol] 9.2 mg/dL Normal 8.5-10.1 [facility] Comment on above: Performed By: #### L IPID, CMP, TSH, T7 #### [facility] [address] [place] [address] Dr. Jessica Mosqueda Chloride [Moles/Vol] 104 mmol/L Normal 98-107 [facility] Comment on above: Performed By: #### L IPID, CMP, TSH, T7 #### [facility] [address] [place] [address] Dr. Jessica Mosqueda CO2 [Moles/Vol] 26.1 mmol/L Normal 21.0-32.0 [facility] Comment on above: Performed By: #### L IPID, CMP, TSH, T7 #### [facility] [address] [place] [address] Dr. Jessica Mosqueda Creatinine [Mass/Vol] 1.86 mg/dL Critically high 0.55-1.02 [facility] Comment on above: Performed By: #### L IPID, CMP, TSH, T7 #### [facility] [address] [place] [address] Dr. Jessica Mosqueda EGFR-AF LITHUANIAN 36 mL/min/1.73m2 Critically low >=60 [facility] Comment on above: Performed By: #### L IPID, CMP, TSH, T7 #### [facility] [address] [place] [address] Dr. Jessica Mosqueda EGFR-NON AF LITHUANIAN 30 mL/min/1.73m2 Critically low >=60 [facility] Comment on above: Performed By: #### L IPID, CMP, TSH, T7 #### [facility] [address] [place] [address] Dr. Jessica Mosqueda Globulin (S) [Mass/Vol] 3.4 g/dL Normal [facility] Comment on above: Performed By: #### L IPID, CMP, TSH, T7 #### [facility] [address] [address] [address] Jessica Mosqueda Glucose [Mass/Vol] 84 mg/dL Normal 74-106 [facility] Comment on above: Performed By: #### L IPID, CMP, TSH, T7 #### [facility] [address] [address] [address] Jessica Mosqueda Potassium [Moles/Vol] 4.2 mmol/L Normal 3.5-5.1 [facility] Comment on above: Performed By: #### L IPID, CMP, TSH, T7 #### [facility] [address] [address] [address] Jessica Mosqueda Protein [Mass/Vol] 7.4 g/dL Normal 6.4-8.2 [facility] Comment on above: Performed By: #### L IPID, CMP, TSH, T7 #### [facility] [address] [place] [address] Dr. Jessica Mosqueda Sodium [Moles/Vol] 139 mmol/L Normal 136-145 [facility] Comment on above: Performed By: #### L IPID, CMP, TSH, T7 #### [facility] [address] [place] [address] Dr. Jessica Mosqueda Urea nitrogen [Mass/Vol] 26.0 mg/dL Critically high 7.0-18.0 [facility] Comment on above: Performed By: #### L IPID, CMP, TSH, T7 #### [facility] [address] [address] [address] Jessica Mosqueda Urea nitrogen/Creatinine [Mass ratio] 14.0 mg/mg Normal [facility] Comment on above: Performed By: #### L IPID, CMP, TSH, T7 #### [facility] [address] [place] [address] Dr. Jessica Mosqueda UA RANDOMon 06-29-2022 Bilirubin Ql (U) Negative Normal NEGATIVE [facility] Comment on above: Performed By: #### L IPID, CMP, TSH, T7 #### [facility] [address] [place] [address] Dr. Jessica Mosqueda Clarity (U) CLEAR Normal CLEAR [facility] Comment on above: Performed By: #### L IPID, CMP, TSH, T7 #### [facility] [address] [place] [address] Dr. Jessica Mosqueda Color (U) LT. YELLOW Normal YELLOW [facility] Comment on above: Performed By: #### L IPID, CMP, TSH, T7 #### [facility] [address] [place] [address] Dr. Jessica Mosqueda Glucose Ql (U) Negative Normal NEGATIVE [facility] Comment on above: Performed By: #### L IPID, CMP, TSH, T7 #### [facility] [address] [place] [address] Dr. Jessica Mosqueda Hemoglobin Ql (U) Negative Normal NEGATIVE [facility] Comment on above: Performed By: #### L IPID, CMP, TSH, T7 #### [facility] [address] [place] [address] Dr. Jessica Mosqueda Ketones Ql (U) Negative Normal NEGATIVE [facility] Comment on above: Performed By: #### L IPID, CMP, TSH, T7 #### [facility] [address] [place] [address] Dr. Jessica Mosqueda LEUKOCYTES Negative Normal NEGATIVE [facility] Comment on above: Performed By: #### L IPID, CMP, TSH, T7 #### [facility] [address] [place] [address] Dr. Jessica Mosqueda Nitrite Ql (U) Negative Normal NEGATIVE [facility] Comment on above: Performed By: #### L IPID, CMP, TSH, T7 #### [facility] [address] [place] [address] Dr. Jessica Mosqueda pH (U) 6.0 [pH] Normal 5-9 [facility] Comment on above: Performed By: #### L IPID, CMP, TSH, T7 #### [facility] [address] [place] [address] Dr. Jessica Mosqueda SPEC GRAVITY <=1.005 Abnormal 1.005-<=1.025 [facility] Comment on above: Performed By: #### L IPID, CMP, TSH, T7 #### [facility] [address] [address] [address] Jessica Mosqueda UA PROTEIN Negative Normal NEGATIVE/ TRACE [facility] Comment on above: Performed By: #### L IPID, CMP, TSH, T7 #### [facility] [address] [place] [address] Dr. Jessica Mosqueda Urobilinogen Qn (U) 0.2 {Fran'U}/dL Normal 0.2 - 1. 0 [facility] Comment on above: Performed By: #### L IPID, CMP, TSH, T7 #### [facility] [address] [place] [address] Dr. Jessica Mosqueda PROF 14(COMP METB)on 022 Albumin [Mass/Vol] 3.9 g/dL Normal 3.4-5.0 [facility] Comment on above: Performed By: #### P THINT #### [facility] [address] [place] [address] Dr. Jessica Mosqueda Albumin/Globulin [Mass ratio] 1.1 {ratio} Normal [facility] Comment on above: Performed By: #### P THINT #### [facility] [address] [place] [address] Dr. Jessica Mosqueda ALP [Catalytic activity/Vol] 36 U/L Critically low 46-116 [facility] Comment on above: Performed By: #### P THINT #### [facility] [address] [place] [address] Dr. Jessica Mosqueda ALT [Catalytic activity/Vol] 17 U/L Normal 14-59 [facility] Comment on above: Performed By: #### P THINT #### [facility] [address] [place] [address] Dr. Jessica Mosqueda Anion gap [Moles/Vol] 13.9 mmol/L Normal [facility] Comment on above: Performed By: #### P THINT #### [facility] [address] [place] [address] Dr. Jessica Mosqueda AST [Catalytic activity/Vol] 11 U/L Critically low 15-37 [facility] Comment on above: Performed By: #### P THINT #### [facility] [address] [address] [address] Jessica Mosqueda Bilirubin [Mass/Vol] 0.3 mg/dL Normal 0.2-1.0 [facility] Comment on above: Performed By: #### P THINT #### [facility] [address] [place] [address] Dr. Jessica Mosqueda Calcium [Mass/Vol] 9.2 mg/dL Normal 8.5-10.1 [facility] Comment on above: Performed By: #### P THINT #### [facility] [address] [place] [address] Dr. Jessica Mosqueda Chloride [Moles/Vol] 105 mmol/L Normal 98-107 [facility] Comment on above: Performed By: #### P THINT #### [facility] [address] [place] [address] Dr. Jessica Mosqueda CO2 [Moles/Vol] 26.5 mmol/L Normal 21.0-32.0 [facility] Comment on above: Performed By: #### P THINT #### [facility] [address] [place] [address] Dr. Jessica Mosqueda Creatinine [Mass/Vol] 2.06 mg/dL Critically high 0.55-1.02 [facility] Comment on above: Performed By: #### P THINT #### [facility] [address] [place] [address] Dr. Jessica Mosqueda EGFR-AF LITHUANIAN 32 mL/min/1.73m2 Critically low >=60 [facility] Comment on above: Performed By: #### P THINT #### [facility] [address] [place] [address] Dr. Jessica Mosqueda EGFR-NON AF LITHUANIAN 27 mL/min/1.73m2 Critically low >=60 [facility] Comment on above: Performed By: #### P THINT #### [facility] [address] [place] [address] Dr. Jessica Mosqueda Globulin (S) [Mass/Vol] 3.5 g/dL Normal [facility] Comment on above: Performed By: #### P THINT #### [facility] [address] [place] [address] Dr. Jessica Mosqueda Glucose [Mass/Vol] 75 mg/dL Normal 74-106 [facility] Comment on above: Performed By: #### P THINT #### [facility] [address] [place] [address] Dr. Jessica Mosqueda Potassium [Moles/Vol] 4.4 mmol/L Normal 3.5-5.1 [facility] Comment on above: Performed By: #### P THINT #### [facility] [address] [place] [address] Dr. Jessica Mosqueda Protein [Mass/Vol] 7.4 g/dL Normal 6.4-8.2 [facility] Comment on above: Performed By: #### P THINT #### [facility] [address] [place] [address] Dr. Jessica Mosqueda Sodium [Moles/Vol] 141 mmol/L Normal 136-145 [facility] Comment on above: Performed By: #### P THINT #### [facility] [address] [place] [address] Dr. Jessica Mosqueda Urea nitrogen [Mass/Vol] 37.0 mg/dL Critically high 7.0-18.0 [facility] Comment on above: Performed By: #### P THINT #### [facility] [address] [place] [address] Dr. Jessica Mosqueda Urea nitrogen/Creatinine [Mass ratio] 18.0 mg/mg Normal [facility] Comment on above: Performed By: #### P THINT #### [facility] [address] [place] [address] Dr. Jessica Mosqueda PROF 14(COMP METB)on 022 Albumin [Mass/Vol] 3.9 g/dL Normal 3.4-5.0 [facility] Comment on above: Performed By: #### C MP #### [facility] [address] [place] [address] Dr. Jessica Mosqueda Albumin/Globulin [Mass ratio] 1.2 {ratio} Normal [facility] Comment on above: Performed By: #### C MP #### [facility] [address] [place] [address] Dr. Jessica Mosqueda ALP [Catalytic activity/Vol] 32 U/L Critically low 46-116 [facility] Comment on above: Performed By: #### C MP #### [facility] [address] [address] [address] Jessica Mosqueda ALT [Catalytic activity/Vol] 12 U/L Critically low 14-59 [facility] Comment on above: Performed By: #### C MP #### [facility] [address] [place] [address] Dr. Jessica Mosqueda Anion gap [Moles/Vol] 13.6 mmol/L Normal [facility] Comment on above: Performed By: #### C MP #### [facility] [address] [place] [address] Dr. Jessica Mosqueda AST [Catalytic activity/Vol] 15 U/L Normal 15-37 [facility] Comment on above: Performed By: #### C MP #### [facility] [address] [place] [address] Dr. Jessica Mosqueda Bilirubin [Mass/Vol] 0.2 mg/dL Normal 0.2-1.0 [facility] Comment on above: Performed By: #### C MP #### [facility] [address] [place] [address] Dr. Jessica Mosqueda Calcium [Mass/Vol] 9.2 mg/dL Normal 8.5-10.1 [facility] Comment on above: Performed By: #### C MP #### [facility] [address] [place] [address] Dr. Jessica Mosqueda Chloride [Moles/Vol] 105 mmol/L Normal 98-107 [facility] Comment on above: Performed By: #### C MP #### [facility] [address] [place] [address] Dr. Jessica Mosqueda CO2 [Moles/Vol] 26.0 mmol/L Normal 21.0-32.0 [facility] Comment on above: Performed By: #### C MP #### [facility] [address] [address] [address] Jessica Mosqueda Creatinine [Mass/Vol] 1.98 mg/dL Critically high 0.55-1.02 [facility] Comment on above: Performed By: #### C MP #### [facility] [address] [address] [address] Jessica Mosqueda EGFR-AF LITHUANIAN 34 mL/min/1.73m2 Critically low >=60 [facility] Comment on above: Performed By: #### C MP #### [facility] [address] [address] [address] Jessica Mosqueda EGFR-NON AF LITHUANIAN 28 mL/min/1.73m2 Critically low >=60 [facility] Comment on above: Performed By: #### C MP #### [facility] [address] [address] [address] Jessica Mosqueda Globulin (S) [Mass/Vol] 3.3 g/dL Normal [facility] Comment on above: Performed By: #### C MP #### [facility] [address] [address] [address] Jessica Mosqueda Glucose [Mass/Vol] 93 mg/dL Normal 74-106 [facility] Comment on above: Performed By: #### C MP #### [facility] [address] [address] [address] Jessica Mosqueda Potassium [Moles/Vol] 4.6 mmol/L Normal 3.5-5.1 [facility] Comment on above: Performed By: #### C MP #### [facility] [address] [address] [address] Jessica Mosqueda Protein [Mass/Vol] 7.2 g/dL Normal 6.4-8.2 [facility] Comment on above: Performed By: #### C MP #### [facility] [address] [address] [address] Jessica Mosqueda Sodium [Moles/Vol] 140 mmol/L Normal 136-145 [facility] Comment on above: Performed By: #### C MP #### [facility] [address] [address] [address] Jessica Mosqueda Urea nitrogen [Mass/Vol] 23.0 mg/dL Critically high 7.0-18.0 [facility] Comment on above: Performed By: #### C MP #### [facility] [address] [place] [address] Dr. Jessica Mosqueda Urea nitrogen/Creatinine [Mass ratio] 11.6 mg/mg Normal [facility] Comment on above: Performed By: #### C MP #### [facility] [address] [place] [address] Dr. Jessica Mosqueda PTH INTACTon 03-23-2022 PTH, Intact 71 pg/mL Critically high 15-65 [facility] Comment on above: Performed By: #### P THINT #### [facility] [address] [place] [address] Dr. Jessica Mosqueda HEMOGRAM AND PLATELon 2021 Hematocrit (Bld) [Volume fraction] 37.8 % Normal 36.0-48.0 [facility] Comment on above: Performed By: #### H H #### [facility] [address] [place] [address] Dr. Jessica Mosqueda Hemoglobin (Bld) [Mass/Vol] 12.3 g/dL Normal 12.0-16.0 [facility] Comment on above: Performed By: #### H H #### [facility] [address] [place] [address] Dr. Jessica Mosqueda MCH (RBC) [Entitic mass] 29.6 pg Normal 26.7-34.0 [facility] Comment on above: Performed By: #### H H #### [facility] [address] [place] [address] Dr. Jessica Mosqueda MCHC (RBC) [Mass/Vol] 32.5 g/dL Normal 29.9-35.2 [facility] Comment on above: Performed By: #### H H #### [facility] [address] [place] [address] Dr. Jessica Mosqueda MCV (RBC) [Entitic vol] 90.9 fL Normal 81.0-99.0 [facility] Comment on above: Performed By: #### H H #### [facility] [address] [place] [address] Dr. Jessica Mosqueda PLT 158 103/ul Normal 150-450 [facility] Comment on above: Performed By: #### H H #### [facility] [address] [place] [address] Dr. Jessica Mosqueda RBC 4.16 106/ul Critically low 4.20-5.40 [facility] Comment on above: Performed By: #### H H #### [facility] [address] [place] [address] Dr. Jessica Mosqueda WBC 10.3 103/ul Normal 4.0-11.0 [facility] Comment on above: Performed By: #### H H #### [facility] [address] [place] [address] Dr. Jessica Mosqueda PHOSPHORUSon 03-22-2022 Phosphate [Mass/Vol] 4.7 mg/dL Normal 2.6-4.7 [facility] Comment on above: Performed By: #### L IPID, CMP, TSH, T7 #### [facility] [address] [place] [address] Dr. Jessica Mosqueda PROF 14(COMP METB)on 022 Albumin [Mass/Vol] 4.1 g/dL Normal 3.4-5.0 [facility] Comment on above: Performed By: #### L IPID, CMP, TSH, T7 #### [facility] [address] [place] [address] Dr. Jessica Mosqueda Albumin/Globulin [Mass ratio] 1.2 {ratio} Normal [facility] Comment on above: Performed By: #### L IPID, CMP, TSH, T7 #### [facility] [address] [place] [address] Dr. Jessica Mosqueda ALP [Catalytic activity/Vol] 36 U/L Critically low 46-116 [facility] Comment on above: Performed By: #### L IPID, CMP, TSH, T7 #### [facility] [address] [address] [address] Jessica Mosqueda ALT [Catalytic activity/Vol] 16 U/L Normal 14-59 [facility] Comment on above: Performed By: #### L IPID, CMP, TSH, T7 #### [facility] [address] [address] [address] Jessica Mosqueda Anion gap [Moles/Vol] 15.4 mmol/L Normal Th [facility] Comment on above: Performed By: #### L IPID, CMP, TSH, T7 #### [facility] [address] [address] [address] Jessica Mosqueda AST [Catalytic activity/Vol] 12 U/L Critically low 15-37 [facility] Comment on above: Performed By: #### L IPID, CMP, TSH, T7 #### [facility] [address] [place] [address] Dr. Jessica Mosqueda Bilirubin [Mass/Vol] 0.6 mg/dL Normal 0.2-1.0 [facility] Comment on above: Performed By: #### L IPID, CMP, TSH, T7 #### [facility] [address] [address] [address] Jessica Mosqueda Calcium [Mass/Vol] 9.3 mg/dL Normal 8.5-10.1 [facility] Comment on above: Performed By: #### L IPID, CMP, TSH, T7 #### [facility] [address] [address] [address] Jessica Mosqueda Chloride [Moles/Vol] 103 mmol/L Normal 98-107 [facility] Comment on above: Performed By: #### L IPID, CMP, TSH, T7 #### [facility] [address] [place] [address] Dr. Jessica Mosqueda CO2 [Moles/Vol] 24.4 mmol/L Normal 21.0-32.0 [facility] Comment on above: Performed By: #### L IPID, CMP, TSH, T7 #### [facility] [address] [place] [address] Dr. Jessica Mosqueda Creatinine [Mass/Vol] 2.04 mg/dL Critically high 0.55-1.02 [facility] Comment on above: Performed By: #### L IPID, CMP, TSH, T7 #### [facility] [address] [address] [address] Jessica Mosqueda EGFR-AF LITHUANIAN 33 mL/min/1.73m2 Critically low >=60 [facility] Comment on above: Performed By: #### L IPID, CMP, TSH, T7 #### [facility] [address] [address] [address] Jessica Mosqueda EGFR-NON AF LITHUANIAN 27 mL/min/1.73m2 Critically low >=60 [facility] Comment on above: Performed By: #### L IPID, CMP, TSH, T7 #### [facility] [address] [address] [address] Jessica Mosqueda Globulin (S) [Mass/Vol] 3.3 g/dL Normal [facility] Comment on above: Performed By: #### L IPID, CMP, TSH, T7 #### [facility] [address] [address] [address] Jessica Mosqueda Glucose [Mass/Vol] 84 mg/dL Normal 74-106 [facility] Comment on above: Performed By: #### L IPID, CMP, TSH, T7 #### [facility] [address] [address] [address] Jessica Mosqueda Potassium [Moles/Vol] 3.8 mmol/L Normal 3.5-5.1 [facility] Comment on above: Performed By: #### L IPID, CMP, TSH, T7 #### [facility] [address] [address] [address] Jessica Mosqueda Protein [Mass/Vol] 7.4 g/dL Normal 6.4-8.2 [facility] [place] [facility] Comment on above: Performed By: #### L IPID, CMP, TSH, T7 #### [facility] [address] [address] [address] Jessica Mosqueda Sodium [Moles/Vol] 139 mmol/L Normal 136-145 [facility] [place] [facility] Comment on above: Performed By: #### L IPID, CMP, TSH, T7 #### [facility] [address] [address] [address] Jessica Mosqueda Urea nitrogen [Mass/Vol] 30.0 mg/dL Critically high 7.0-18.0 [facility] Comment on above: Performed By: #### L IPID, CMP, TSH, T7 #### [facility] [address] [address] [address] Jessica Mosqueda Urea nitrogen/Creatinine [Mass ratio] 14.7 mg/mg Normal [facility] Comment on above: Performed By: #### L IPID, CMP, TSH, T7 #### [facility] [address] [place] [address] Dr. Jessica Mosqueda UA RANDOMon 03-22-2022 Bilirubin Ql (U) Negative Normal NEGATIVE [facility] Comment on above: Performed By: #### L IPID, CMP, TSH, T7 #### [facility] [address] [address] [address] Jessica Mosqueda Clarity (U) CLEAR Normal CLEAR [facility] Comment on above: Performed By: #### L IPID, CMP, TSH, T7 #### [facility] [address] [place] [address] Dr. Jessica Mosqueda Color (U) LT. YELLOW Normal YELLOW [facility] Comment on above: Performed By: #### L IPID, CMP, TSH, T7 #### [facility] [address] [place] [address] Dr. Jessica Mosqueda Glucose Ql (U) Negative Normal NEGATIVE [facility] Comment on above: Performed By: #### L IPID, CMP, TSH, T7 #### [facility] [address] [address] [address] Jessica Mosqueda Hemoglobin Ql (U) Negative Normal NEGATIVE [facility] Comment on above: Performed By: #### L IPID, CMP, TSH, T7 #### [facility] [address] [place] [address] Dr. Jessica Mosqueda Ketones Ql (U) Negative Normal NEGATIVE [facility] Comment on above: Performed By: #### L IPID, CMP, TSH, T7 #### [facility] [address] [address] [address] Jessica Mosqueda LEUKOCYTES Negative Normal NEGATIVE [facility] Comment on above: Performed By: #### L IPID, CMP, TSH, T7 #### [facility] [address] [address] [address] Jessica Mosqueda Nitrite Ql (U) Negative Normal NEGATIVE [facility] Comment on above: Performed By: #### L IPID, CMP, TSH, T7 #### [facility] [address] [address] [address] Jessica Mosqueda pH (U) 5.5 [pH] Normal 5-9 [facility] Comment on above: Performed By: #### L IPID, CMP, TSH, T7 #### [facility] [address] [place] [address] Dr. Jessica Mosqueda SPEC GRAVITY 1.005 Normal 1.005-<=1.025 [facility] Comment on above: Performed By: #### L IPID, CMP, TSH, T7 #### [facility] [address] [address] [address] Jessica Mosqueda UA PROTEIN Negative Normal NEGATIVE/ TRACE [facility] Comment on above: Performed By: #### L IPID, CMP, TSH, T7 #### [facility] [address] [place] [address] Dr. Jessica Mosqueda Urobilinogen Qn (U) 0.2 {Fran'U}/dL Normal 0.2 - 1. 0 [facility] Comment on above: Performed By: #### L IPID, CMP, TSH, T7 #### [facility] [address] [address] [address] Jessica Mosqueda URINE T PROTEIN CREAT RATIOo n 03-22-2022 UR TOTAL PROTEIN <6.0 Normal <=12.0 [facility] Comment on above: Performed By: #### L IPID, CMP, TSH, T7 #### [facility] [address] [place] [address] Dr. Jessica Mosqueda URINE CREAT 23.46 mg/dL Normal 20.00-300.00 [facility] Comment on above: Performed By: #### L IPID, CMP, TSH, T7 #### [facility] [address] [address] [address] Jessica Mosqueda PROF 14(COMP METB)on 022 Albumin [Mass/Vol] 3.8 g/dL Normal 3.4-5.0 [facility] Comment on above: Performed By: #### L IPID, CMP, TSH, T7 #### [facility] [address] [address] [address] Jessica Mosqueda Albumin/Globulin [Mass ratio] 1.3 {ratio} Normal [facility] Comment on above: Performed By: #### L IPID, CMP, TSH, T7 #### [facility] [address] [place] [address] Dr. Jessica Mosqueda ALP [Catalytic activity/Vol] 35 U/L Critically low 46-116 [facility] Comment on above: Performed By: #### L IPID, CMP, TSH, T7 #### [facility] [address] [address] [address] Jessica Mosqueda ALT [Catalytic activity/Vol] 17 U/L Normal 14-59 [facility] Comment on above: Performed By: #### L IPID, CMP, TSH, T7 #### [facility] [address] [address] [address] Jessica Mosqueda Anion gap [Moles/Vol] 12.2 mmol/L Normal [facility] Comment on above: Performed By: #### L IPID, CMP, TSH, T7 #### [facility] [address] [address] [address] Jessica Mosqueda AST [Catalytic activity/Vol] 13 U/L Critically low 15-37 [facility] Comment on above: Performed By: #### L IPID, CMP, TSH, T7 #### [facility] [address] [address] [address] Jessica Mosqueda Bilirubin [Mass/Vol] 0.4 mg/dL Normal 0.2-1.0 [facility] Comment on above: Performed By: #### L IPID, CMP, TSH, T7 #### [facility] [address] [address] [address] Jessica Mosqueda Calcium [Mass/Vol] 8.6 mg/dL Normal 8.5-10.1 [facility] Comment on above: Performed By: #### L IPID, CMP, TSH, T7 #### [facility] [address] [address] [address] Jessica Mosqueda Chloride [Moles/Vol] 106 mmol/L Normal 98-107 [facility] Comment on above: Performed By: #### L IPID, CMP, TSH, T7 #### [facility] [address] [place] [address] Dr. Jessica Mosqueda CO2 [Moles/Vol] 26.1 mmol/L Normal 21.0-32.0 [facility] Comment on above: Performed By: #### L IPID, CMP, TSH, T7 #### [facility] [address] [place] [address] Dr. Jessica Mosqueda Creatinine [Mass/Vol] 1.76 mg/dL Critically high 0.55-1.02 [facility] Comment on above: Performed By: #### L IPID, CMP, TSH, T7 #### [facility] [address] [place] [address] Dr. Jessica Mosqueda EGFR-AF LITHUANIAN 39 mL/min/1.73m2 Critically low >=60 [facility] Comment on above: Performed By: #### L IPID, CMP, TSH, T7 #### [facility] [address] [place] [address] Dr. Jessica Mosqueda EGFR-NON AF LITHUANIAN 32 mL/min/1.73m2 Critically low >=60 [facility] Comment on above: Performed By: #### L IPID, CMP, TSH, T7 #### [facility] [address] [address] [address] Jessica Mosqueda Globulin (S) [Mass/Vol] 3.0 g/dL Normal [facility] Comment on above: Performed By: #### L IPID, CMP, TSH, T7 #### [facility] [address] [address] [address] Jessica Mosqueda Glucose [Mass/Vol] 81 mg/dL Normal 74-106 [facility] [place] [facility] Comment on above: Performed By: #### L IPID, CMP, TSH, T7 #### [facility] [address] [place] [address] Dr. Jessica Mosqueda Potassium [Moles/Vol] 4.3 mmol/L Normal 3.5-5.1 [facility] Comment on above: Performed By: #### L IPID, CMP, TSH, T7 #### [facility] [address] [address] [address] Jessica Mosqueda Protein [Mass/Vol] 6.8 g/dL Normal 6.4-8.2 [facility] [place] [facility] Comment on above: Performed By: #### L IPID, CMP, TSH, T7 #### [facility] [address] [place] [address] Dr. Jessica Mosqueda Sodium [Moles/Vol] 140 mmol/L Normal 136-145 [facility] [place] [facility] Comment on above: Performed By: #### L IPID, CMP, TSH, T7 #### [facility] [address] [place] [address] Dr. Jessica Mosqueda Urea nitrogen [Mass/Vol] 20.0 mg/dL Critically high 7.0-18.0 [facility] Comment on above: Performed By: #### L IPID, CMP, TSH, T7 #### [facility] [address] [place] [address] Dr. Jessica Mosqueda Urea nitrogen/Creatinine [Mass ratio] 11.4 mg/mg Normal [facility] Comment on above: Performed By: #### L IPID, CMP, TSH, T7 #### [facility] [address] [place] [address] Dr. Jessica Mosqueda PROF 14(COMP METB)on 022 Albumin [Mass/Vol] 4.0 g/dL Normal 3.4-5.0 [facility] [place] [facility] Comment on above: Performed By: #### L IPID, CMP, TSH, T7 #### [facility] [address] [address] [address] Jessica Mosqueda Albumin/Globulin [Mass ratio] 1.2 {ratio} Normal [facility] Comment on above: Performed By: #### L IPID, CMP, TSH, T7 #### [facility] [address] [address] [address] Jessica Mosqueda ALP [Catalytic activity/Vol] 31 U/L Critically low 46-116 [facility] Comment on above: Performed By: #### L IPID, CMP, TSH, T7 #### [facility] [address] [address] [address] Jessica Mosqueda ALT [Catalytic activity/Vol] 19 U/L Normal 14-59 [facility] Comment on above: Performed By: #### L IPID, CMP, TSH, T7 #### [facility] [address] [address] [address] Jessica Mosqueda Anion gap [Moles/Vol] 13.7 mmol/L Normal [facility] Comment on above: Performed By: #### L IPID, CMP, TSH, T7 #### [facility] [address] [address] [address] Jessica Mosqueda AST [Catalytic activity/Vol] 12 U/L Critically low 15-37 [facility] Comment on above: Performed By: #### L IPID, CMP, TSH, T7 #### [facility] [address] [address] [address] Jessica Mosqueda Bilirubin [Mass/Vol] 0.3 mg/dL Normal 0.2-1.0 [facility] Comment on above: Performed By: #### L IPID, CMP, TSH, T7 #### [facility] [address] [address] [address] Jessica Mosqueda Calcium [Mass/Vol] 9.3 mg/dL Normal 8.5-10.1 [facility] Comment on above: Performed By: #### L IPID, CMP, TSH, T7 #### [facility] [address] [address] [address] Jessica Mosqueda Chloride [Moles/Vol] 106 mmol/L Normal 98-107 [facility] Comment on above: Performed By: #### L IPID, CMP, TSH, T7 #### [facility] [address] [place] [address] Dr. Jessica Mosqueda CO2 [Moles/Vol] 25.4 mmol/L Normal 21.0-32.0 [facility] Comment on above: Performed By: #### L IPID, CMP, TSH, T7 #### [facility] [address] [address] [address] Jessica Mosqueda Creatinine [Mass/Vol] 1.84 mg/dL Critically high 0.55-1.02 [facility] Comment on above: Performed By: #### L IPID, CMP, TSH, T7 #### [facility] [address] [place] [address] Dr. Jessica Mosqueda EGFR-AF LITHUANIAN 37 mL/min/1.73m2 Critically low >=60 [facility] Comment on above: Performed By: #### L IPID, CMP, TSH, T7 #### [facility] [address] [address] [address] Jessica Mosqueda EGFR-NON AF LITHUANIAN 30 mL/min/1.73m2 Critically low >=60 [facility] Comment on above: Performed By: #### L IPID, CMP, TSH, T7 #### [facility] [address] [place] [address] Dr. Jessica Mosqueda Globulin (S) [Mass/Vol] 3.4 g/dL Normal [facility] Comment on above: Performed By: #### L IPID, CMP, TSH, T7 #### [facility] [address] [place] [address] Dr. Jessica Mosqueda Glucose [Mass/Vol] 99 mg/dL Normal 74-106 [facility] Comment on above: Performed By: #### L IPID, CMP, TSH, T7 #### [facility] [address] [place] [address] Dr. Jessica Mosqueda Potassium [Moles/Vol] 4.1 mmol/L Normal 3.5-5.1 [facility] Comment on above: Performed By: #### L IPID, CMP, TSH, T7 #### [facility] [address] [address] [address] Jessica Mosqueda Protein [Mass/Vol] 7.4 g/dL Normal 6.4-8.2 [facility] Comment on above: Performed By: #### L IPID, CMP, TSH, T7 #### [facility] [address] [address] [address] Jessica Mosqueda Sodium [Moles/Vol] 141 mmol/L Normal 136-145 [facility] [place] [facility] Comment on above: Performed By: #### L IPID, CMP, TSH, T7 #### [facility] [address] [place] [address] Dr. Jessica Mosqueda Urea nitrogen [Mass/Vol] 25.0 mg/dL Critically high 7.0-18.0 [facility] Comment on above: Performed By: #### L IPID, CMP, TSH, T7 #### [facility] [address] [address] [address] Jessica Mosqueda Urea nitrogen/Creatinine [Mass ratio] 13.6 mg/mg Normal [facility] Comment on above: Performed By: #### L IPID, CMP, TSH, T7 #### [facility] [address] [place] [address] Dr. Jessica ALTAMIRANOPon 09-04-2019 OVS Visit (SP) Office ([place]) ISABEL RIVERA ([id number]) 1980 F Date Time Provider Department 09/04/19 3:45 PM LUIS ANGEL HALL During your visit today, we recorded the following information about you: Temperature Pulse Respiration Blood pressure 97.6 degrees 66/minute 18/minute 115/66 Weight Height 82.2 kg 1.676 m Luis Angel Hall 09/06/2019 9:21 AM Signed PATIENT NAME: Isabel Rivera REFERRING PHYSICIAN: Timothy Mills MD [address] [place] [address] [place] [address] PRIMARY CARE PHYSICIAN: Maren James MD CHIEF [...] did not have a lupus anticoagulant. Protein GRADER PATROL were within expected ranges. She had negative [...] 2017. 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 Follows with Dr. Bateman, vascular. She does exercise slightly 3 days a week and works a [employer] in [facility] [employer]. Medications as of September 2017 included only [...] questions satisfactorily.. Ankit Hall D.O. Medical Oncologist [place], [place] Cc. Dr. Bateman. Referring Provider: LUIS ANGEL HALL [[id number]] Allergies As of Date: 09/04/2019 Noted Allergy [...] by LUIS ANGEL HALL DO on 09/06/19 [facility] PROGRESSon 09-04-2019 PROGRESS HNO ID: [id number] Author: Luis Angel Hall Service: ? Author Type: Physician Type: Progress Notes Filed: 09/06/2019 9:21 AM Note Text: PATIENT NAME: Isabel Rivera REFERRING PHYSICIAN: Timothy Mills MD [address] [place] [address] [place] [address] PRIMARY CARE PHYSICIAN: Maren James MD CHIEF [...] did not have a lupus anticoagulant. Protein GRADER PATROL were within expected ranges. She had negative [...] 2017. 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 Follows with Dr. Bateman, vascular. She does exercise slightly 3 days a week and works a [employer] in [facility]. Medications as of September 2017 included only [...] questions satisfactorily.. Ankit Hall D.O. Medical Oncologist [place], [place] Cc. Dr. Bateman. [facility] CNOVSPon 07-30-2019 CNOVSP Visit (SP) Office ([place]) PATRICIAAdrianFABIANISABEL LEDBETETR ([id number]) 1980 F Date Time Provider Department 07/30/19 3:45 PM LUIS ANGEL HALL HEMACL During your visit today, we recorded the following information about you: Temperature Pulse Respiration Blood pressure 98.4 degrees 61/minute 16/minute 107/69 Weight Height 80.6 kg 1.676 m Luis Angel Hall DO 08/02/2019 11:50 AM Signed PATIENT NAME: Isabel Rivera REFERRING PHYSICIAN: Timothy Mills MD [address] [place] [address] [place] [address] PRIMARY CARE PHYSICIAN: Maren James MD CHIEF [...] TIBC - CBC + DIFF (FOR REMOTE [facility] USE) - BASIC METABOLIC PNL [...] 2017. 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 Follows with Dr. Bateman, vascular. She does exercise slightly 3 days a week and works a [employer] in [facility]. Medications as of September 2017 included only [...] questions satisfactorily.. Ankit Hall D.O. Medical Oncologist [place], [place] Cc. Dr. Bateman. Referring Provider: TIMOTHY MILLS [[id number]] Allergies As of Date: 07/30/2019 (Not on File) Date Reviewed: 07/30/2019 Reviewed by: Lavonne Borrego - Fully Assessed Reason for Visit: Consult [173] Primary Visit Diagnosis:Acute deep vein thrombosis (DVT) of proximal vein of both lower extremities (HCC) [I82.4Y3] Order(s): LEG VEIN DVT [facility] [[id number]] Order #: [id number] FUTURE FACTOR V LEIDEN/PCR [SQFVLEID] Order #: [id number] FUTURE PROTHROMBIN GENE PCR [SQPTGENE] Order #: [id number] FUTURE PROTEIN C FUNCT [SQPRCFUN] Order #: [id number] FUTURE PROTEIN S CLOTTABLE [SQPRSCLT] Order #: [id number] FUTURE ANTITHROMBIN ACTIVITY [EVWN7TGK] Order #: [id number] FUTURE LUPUS ANTICOAG PL [SQLUPUSP] Order #: [id number] FUTURE B 2 GPI IGG AND IGM [SMP7GDTX] Order #: [id number] FUTURE ANTI-CARDIOLIPIN AB [SQCARDIO] Order #: [id number] FUTURE HOMOCYSTEINE [SQHOMCYS] Order #: [id number] FUTURE FERRITIN BLD [SQFERR] Order #: [id number] FUTURE IRON + TIBC [SQIRON] Order #: [id number] FUTURE CBC + DIFF (FOR REMOTE [facility] USE) [SQRCBCDF] Order #: [id number] FUTURE BASIC METABOLIC PNL [SQBMP] Order #: [id number] FUTURE HEPATIC FUNCTION PNL [SQHFP] Order #: [id number] FUTURE Disposition: Return labs today. f/u 4 [...] Date: 07/30/2019 (None) Encounter Status:Closed by LUIS ANEGL HALL DO on 08/02/19 [facility] PROGRESSon 07-30-2019 PROGRESS HNO ID: [id number] Author: Luis Angel Hall Service: ? Author Type: Physician Type: Progress Notes Filed: 08/02/2019 11:50 AM Note Text: PATIENT NAME: Isabel Rivera REFERRING PHYSICIAN: Timothy Mills MD [address] [place] [address] [place] [address] PRIMARY CARE PHYSICIAN: Maren James MD CHIEF [...] 2017. 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 Follows with Dr. Bateman, vascular. She does exercise slightly 3 days a week and works a [employer] in [facility]. Medications as of September 2017 included only [...] questions satisfactorily.. Ankit Hall D.O. Medical Oncologist Merged With [facility] [place], [place] Cc. Dr. Bateman. Normal [facility] Vital Signs Date Time Vital Sign Value Performing Clinician Facility 06-28-2023 16:00-0500 Body height 172.72 cm Maeve Moreno Other [facility] Other 06-28-2023 16:00-0500 Body mass index (BMI) [Ratio] 31.35 kg/m2 Maeve Moreno Other [facility] Other 06-28-2023 16:00-0500 Body temperature 97.3 [degF] Maeve Moreno Other [facility] Other 06-28-2023 16:00-0500 Body weight 93.53 kg Maeve Moreno Other [facility] Other 06-28-2023 16:00-0500 Diastolic blood pressure 87 mm[Hg] Maeve Moreno Other [facility] Other 06-28-2023 16:00-0500 Respiratory rate 18 /min Maeve Moreno Other [facility] Other 06-28-2023 16:00-0500 SaO2% (BldA) [Mass fraction] 98 % Maeve Moreno Other [facility] Other 06-28-2023 16:00-0500 Systolic blood pressure 141 mm[Hg] Maeve Moreno Other [facility] Other 04-05-2023 16:00-0400 Body height 172.72 cm Maeve Moreno Other [facility] Other 04-05-2023 16:00-0400 Body mass index (BMI) [Ratio] 31.23 kg/m2 Maeve Moreno Other [facility] Other 04-05-2023 16:00-0400 Body temperature 96.4 [degF] Maeve Moreno Other [facility] Other 04-05-2023 16:00-0400 Body weight 93.17 kg Maeve Moreno Other [facility] Other 04-05-2023 16:00-0400 Diastolic blood pressure 85 mm[Hg] Maeve Moreno Other [facility] Other 04-05-2023 16:00-0400 Respiratory rate 18 /min Maeve Moreno Other [facility] Other 04-05-2023 16:00-0400 SaO2% (BldA) [Mass fraction] 99 % Maeve Moreno Other [facility] Other 04-05-2023 16:00-0400 Systolic blood pressure 134 mm[Hg] Maeve Moreno Other [facility] Other 12-21-2022 17:00-0400 Body height 172.72 cm Maeve Moreno Other [facility] Other 12-21-2022 17:00-0400 Body mass index (BMI) [Ratio] 31.14 kg/m2 Maeve Moreno Other [facility] Other 12-21-2022 17:00-0400 Body temperature 96.5 [degF] Maeve Moreno Other [facility] Other 12-21-2022 17:00-0400 Body weight 92.9 kg Maeve Moreno Other [facility] Other 12-21-2022 17:00-0400 Diastolic blood pressure 84 mm[Hg] Maeve Moreno Other [facility] Other 12-21-2022 17:00-0400 Respiratory rate 18 /min Maeve Moreno Other [facility] Other 12-21-2022 17:00-0400 SaO2% (BldA) [Mass fraction] 98 % Maeve Moreno Other [facility] Other 12-21-2022 17:00-0400 Systolic blood pressure 138 mm[Hg] Maeve Moreno Other [facility] Other 09-28-2022 17:00-0500 Body height 172.72 cm Maeve Moreno Other [facility] Other 09-28-2022 17:00-0500 Body mass index (BMI) [Ratio] 31.11 kg/m2 Maeve Moreno Other [facility] Other 09-28-2022 17:00-0500 Body temperature 98.2 [degF] Maeve Moreno Other [facility] Other 09-28-2022 17:00-0500 Body weight 92.81 kg Maeve Moreno Other [facility] Other 09-28-2022 17:00-0500 Diastolic blood pressure 94 mm[Hg] Maeve Moreno Other [facility] Other 09-28-2022 17:00-0500 Respiratory rate 18 /min Maeve Moreno Other [facility] Other 09-28-2022 17:00-0500 SaO2% (BldA) [Mass fraction] 98 % Maeve Moreno Other [facility] Other 09-28-2022 17:00-0500 Systolic blood pressure 144 mm[Hg] Maeve Moreno Other [facility] Other 07-06-2022 17:00-0500 Body height 172.72 cm Maeve Moreno Other [facility] Other 07-06-2022 17:00-0500 Body mass index (BMI) [Ratio] 30.32 kg/m2 Maeve Moreno Other [facility] Other 07-06-2022 17:00-0500 Body temperature 97.1 [degF] Maeve Sahnidank Other [facility] Other 07-06-2022 17:00-0500 Body weight 90.45 kg Maeve Moreno Other [facility] Other 07-06-2022 17:00-0500 Diastolic blood pressure 87 mm[Hg] Maeve Sahnidank Other [facility] Other 07-06-2022 17:00-0500 Respiratory rate 18 /min Maeve Tiffanie Other [facility] Other 07-06-2022 17:00-0500 SaO2% (BldA) [Mass fraction] 99 % Maeve Moreno Other [facility] Other 07-06-2022 17:00-0500 Systolic blood pressure 128 mm[Hg] Maeve Moreno Other [facility] Other 03-23-2022 16:40-0400 Body height 172.72 cm Maeve Moreno Other [facility] Other 03-23-2022 16:40-0400 Body mass index (BMI) [Ratio] 30.47 kg/m2 Maeve Moreno Other [facility] Other 03-23-2022 16:40-0400 Body temperature 96.9 [degF] Maeve Moreno Other [facility] Other 03-23-2022 16:40-0400 Body weight 90.9 kg Maeve Moreno Other [facility] Other 03-23-2022 16:40-0400 Diastolic blood pressure 80 mm[Hg] Maeve Moreno Other [facility] Other 03-23-2022 16:40-0400 Respiratory rate 18 /min Maeve Moreno Other [facility] Other 03-23-2022 16:40-0400 SaO2% (BldA) [Mass fraction] 99 % Maeve Moreno Other [facility] Other 03-23-2022 16:40-0400 Systolic blood pressure 116 mm[Hg] Maeve Moreno Other [facility] Other 08-09-2021 17:00-0500 Body height 172.72 cm Maeve Moreno Other [facility] Other 08-09-2021 17:00-0500 Body mass index (BMI) [Ratio] 30.53 kg/m2 Maeve Moreno Other [facility] Other 08-09-2021 17:00-0500 Body weight 91.08 kg Maeve Moreno Other [facility] Other 08-09-2021 17:00-0500 Diastolic blood pressure 80 mm[Hg] Maeve Moreno Other [facility] Other 08-09-2021 17:00-0500 Respiratory rate 18 /min Maeve Moreno Other [facility] Other 08-09-2021 17:00-0500 SaO2% (BldA) [Mass fraction] 99 % Maeve Moreno Other [facility] Other 08-09-2021 17:00-0500 Systolic blood pressure 142 mm[Hg] Maeve Sahnidank Other [facility] Other Encounters Encounter Date Encounter Type Care Provider Facility Start: 06-28-2023 End: 06-28-2023 ambulatory Maeve Moreno Other [facility] Other Start: 06-28-2023 Office outpatient vi sit 15 minutes Sekouparam Tiffanie [facility] Start: 06-26-2023 End: 06-26-2023 ambulatory Maeve Sahnidank Other [facility] Other Start: 06-26-2023 Telephone encounter Maeve Moreno [facility] Start: 05-07-2023 End: 05-07-2023 ambulatory Maeve Moreno Other [facility] Other Start: 05-07-2023 Telephone encounter Maeve Moreno [facility] Start: 04-05-2023 End: 04-05-2023 ambulatory Maeve Sahnidank Other [facility] Other Start: 04-05-2023 Office outpatient vi sit 25 minutes Sekouam Tiffanie [facility] Start: 03-27-2023 End: 03-27-2023 ambulatory Maeve Sahnidank Other [facility] Other Start: 03-27-2023 Telephone encounter Maeve Sahnidank [facility] Start: 03-12-2023 End: 03-12-2023 ambulatory Maeve Moreno Other [facility] Other Start: 03-12-2023 Telephone encounter Maeve Moreno [facility] Start: 12-21-2022 End: 12-21-2022 ambulatory Maeve Tiffanie Other [facility] Other Start: 12-21-2022 Office outpatient vi sit 25 minutes Maeve Sahnidank [facility] Start: 12-18-2022 End: 12-18-2022 ambulatory Sekouparam Tiffanie Other [facility] Other Start: 12-18-2022 Telephone encounter Maeve Moreno [facility] Start: 12-13-2022 End: 12-14-[address] MAEVE MORENO Facility:[facility] Start: 11-14-2022 End: 11-15-[address] MAREN JAMES . Facility:[facility] Start: 11-13-2022 Encounter for genera l adult medical examination without abnormal findings DR MAREN JAMES . [facility] Start: 11-10-2022 End: 11-11-[address] MAREN JAMES . Facility:[facility] Start: 11-10-2022 End: 11-11-2022 Encounter for general adult medical examination without abnormal findings DR MAREN JAMES . Facility:[facility] Start: 09-28-2022 End: 09-28-2022 ambulatory Maeve Moreno Other [facility] Other Start: 09-28-2022 Office outpatient vi sit 25 minutes Maeve Moreno [facility] Start: 09-26-2022 End: 09-27-[address] MAEVE MORENO Facility:[facility] Start: 07-06-2022 End: 07-06-2022 ambulatory Maeve Moreno Other [facility] Other Start: 07-06-2022 Office outpatient vi sit 25 minutes Maeve Moreno [facility] Start: 07-04-2022 End: 07-04-2022 ambulatory Maeve Moreno Other [facility] Other Start: 07-04-2022 Telephone encounter Maeve Moreno [facility] Start: 06-29-2022 End: 06-30-[address] MAEVE MORENO Facility:[facility] Start: 05-25-2022 End: 05-26-[address] MAEVE MORENO Facility:[facility] Start: 04-25-2022 End: 04-26-[address] MAEVE MORENO Facility:[facility] Start: 04-17-2022 End: 04-17-2022 ambulatory Maeve Moreno Other [facility] Other Start: 04-17-2022 Telephone encounter Maeve Moreno [facility] Start: 03-23-2022 End: 03-23-2022 ambulatory Maeve Moreno Other [facility] Other Start: 03-23-2022 Office outpatient vi sit 25 minutes Maeve Moreno [facility] Start: 03-22-2022 End: 03-23-[address] MAEVE MORENO Facility:[facility] Start: 02-06-2022 End: 02-07-[address] MAEVE MORENO Facility:[facility] Start: 01-13-2022 End: 01-14-[address] MAEVE MORENO Merged With [facility] [employer] Other Start: 01-13-2022 Telephone encounter Maeve Moreno [facility] Start: 10-04-2021 End: 10-04-2021 ambulatory Maeve Moreno Other [facility] Other Start: 10-04-2021 Telephone encounter Maeve Moreno [facility] Start: 09-14-2021 End: 09-14-2021 ambulatory Maeve Moreno Other [facility] Other Start: 09-14-2021 Telephone encounter Maeve Moreno [facility] Start: 08-09-2021 End: 08-09-2021 ambulatory Maeve Moreno Other [facility] Other Start: 08-09-2021 Office outpatient vi sit 25 minutes Maeve Moreno [facility] Start: 07-26-2021 End: 07-26-2021 ambulatory Maeve Moreno Other [facility] Other Start: 07-26-2021 Telephone encounter Maeve Moreno [facility] Start: 09-28-2020 End: 09-28-2020 ambulatory Maeve Moreno Other [facility] Other Start: 09-28-2020 Telephone encounter Maeve Moreno [facility] Payers Date Payer Category Payer Unknown [id number] 2.16.84 [id number] 1980 Unknown [id number] 2.16.84 [id number] 1980 Unknown [id number] 2.16.84 [id number] 1981 Unknown [id number] 2.16.84 [id number] 1981 Unknown [id number] 2.16.84 [id number] 1981 Unknown [id number] 2.16.84 [id number] 1981 Unknown [id number] 2.16.84 [id number] 1981 Unknown [id number] 2.16.84 [id number] 1981 Unknown [id number] 2.16.84 [id number] 1980 Unknown [id number] 2.16.84 [id number] 1958 Private Health Insurance [id number] Social History Date Type Detail Facility Unknown if ever smoked [facility] Other Sex Assigned At Sex Assigned At Bir th [facility] Other Clinical Notes 09-28-2020 to 06-28-2023 Note [...] She was informed that they may need MANAGER POWER in near future. Will refer to transplant [...] more than 140s. She has no proteinuria. [facility] Other 09-18-2023 Evaluation note* Encounter Date Diagnosis Assessment Notes Treatment Notes Treatment Clinical Notes Apr, Polycystic dysplastic kidney (ICD-10 - Q61.3) [facility] Other 08-17-2023 Evaluation note* Encounter Date Diagnosis [...] She was informed that they may need MANAGER POWER in near future. Will refer to transplant [...] more than 40s. She has no proteinuria. [facility] Other 05-04-2023 Evaluation note* Encounter Date Diagnosis [...] She was informed that they may need MANAGER POWER in near future. Will refer to transplant [...] more than 140s. She has no proteinuria. [facility] Other 02-09-2023 Evaluation note* Encounter Date Diagnosis [...] She was informed that they may need MANAGER POWER in near future. Will refer to transplant [...] to check blood pressure at my office. [facility] Other 11-17-2022 Evaluation note* Encounter Date Diagnosis [...] She was informed that they may need MANAGER POWER in near future. Will refer to transplant [...] She has no bleeding events or hematuria. [facility] Other 08-04-2022 Evaluation note* Encounter Date Diagnosis [...] She was informed that they may need MANAGER POWER in near future. Will refer to transplant [...] She has no bleeding events or hematuria. [facility] Other [id number] Evaluation note* Encounter Date Diagnosis Assessment Notes Treatment Notes Treatment Clinical Notes December, Polycystic dysplastic kidney (ICD-10 - Q61.3) December, CKD (chronic kidney disease) stage 2, GFR 60-89 ml/min (ICD-10 - N18.2) December, Factor V Leiden (ICD-10 - D68.51) [facility] Other [id number] Evaluation note* Encounter Date Diagnosis Assessment Notes Treatment Notes Treatment Clinical Notes Sep, Polycystic dysplastic kidney (ICD-10 - Q61.3) [facility] Other Evaluation noteNort [facility] Other Evaluation [facility]No [facility] Other History general Narrative - 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 Surgical History WISDOM TEETH X4 Surgical History EVLT ON RIGHT LEG Hospitalization History CHILD X 2 Hospitalization History BLOOD CLOT Merged With [facility] Other Summary Purpose Family History No Family History Records FoundNo Family History Records Found Advance Directives No Advanced Directives Records FoundNo Advanced Directives Records Found Additional Source Comments INFORMATION SOURCE (unrecogn ized section and content) DATE CREATED AUTHOR 09/06/2019 [facility] DATE CREATED AUTHOR AUTHOR'S ORGANIZ ATION [...] BE BASED ON THE PRIMARY CLINICAL RECORDS. [facility]. provides no warranty or guarantee of the accuracy or completeness of information in this document.
== END 2023-09-11 15:11 | disposition home or self-care (01) ==
LOC: VC 15:10
PROVIDERS: PCP Radiology Diagnostic Radiology; Visit Provider Radiology Diagnostic Radiology
DX: I83.813 Varicose veins of bilateral lower extremities with pain (principal)
CPT/HCPCS: G0463

== ENCOUNTER 2023-10-01 15:13 | Outpatient (OUT) | payer OTHER, SELFPAY ==
[2023-10-01 15:35] LABS: Hematocrit 37.2 % (36.0-48.0); Hemoglobin 11.8 g/dL (12.0-16.0); Mean Corpuscular HGB Conc 31.7 g/dL (29.9-35.2); Mean Corpuscular Hemoglobin 28.7 pg (26.7-34.0); Mean Corpuscular Volume 90.5 fL (81.0-99.0); Mean Platelet Volume 12.6 fL (9.5-13.5); Platelet Count 154 10^3/uL (150-450); Red Blood Count 4.11 10^6/uL (4.20-5.40); Red Cell Distribution Width 13.5 % (11.0-15.0)
[2023-10-01 15:42] LABS: Alanine Aminotransferase 12 U/L (14-59); Albumin Level 3.7 g/dL (3.4-5.0); Alkaline Phosphatase 39 U/L (46-116); Anion Gap 14.7; Aspartate Amino Transferase 13 U/L (15-37); BUN Creatinine Ratio 12.6; Bilirubin Total 0.2 mg/dL (0.2-1.0); Calcium 9.1 mg/dL (8.5-10.1); Carbon Dioxide 25.5 mmol/L (21.0-32.0); Chloride 106 mmol/L (98-107); Estimated GFR (African America 29 (>=60); Estimated GFR (Non-African Ame 24 (>=60); Globulin 3.7 g/dL; Glucose 90 mg/dL (74-106); Phosphorus 4.3 mg/dL (2.6-4.7); Potassium 4.2 mmol/L (3.5-5.1); Sodium 142 mmol/L (136-145); Total Protein 7.4 g/dL (6.4-8.2)
[2023-10-02 12:10] LABS: PTH, Intact 51 pg/mL (15-65)
== END 2023-10-01 15:14 | disposition home or self-care (01) ==
LOC: LAB 15:14
PROVIDERS: PCP Radiology Diagnostic Radiology; Visit Provider Internal Medicine Nephrology
DX: Q61.3 Polycystic kidney, unspecified (principal); N18.4 Chronic kidney disease, stage 4 (severe)
CPT/HCPCS: 36415; 80053; 83970; 84100; 85027

== ENCOUNTER 2023-12-31 15:12 | Outpatient (OUT) | payer OTHER, SELFPAY ==
[2023-12-31 15:28] LABS: Hematocrit 37.7 % (36.0-48.0); Hemoglobin 11.9 g/dL (12.0-16.0); Mean Corpuscular HGB Conc 31.6 g/dL (29.9-35.2); Mean Corpuscular Hemoglobin 28.1 pg (26.7-34.0); Mean Corpuscular Volume 89.1 fL (81.0-99.0); Platelet Count 136 10^3/uL (150-450); Red Blood Count 4.23 10^6/uL (4.20-5.40); Red Cell Distribution Width 13.9 % (11.0-15.0); White Blood Count 10.6 10^3/uL (4.0-11.0)
[2023-12-31 16:05] LABS: Alanine Aminotransferase 14 U/L (14-59); Albumin Level 3.4 g/dL (3.4-5.0); Alkaline Phosphatase 42 U/L (46-116); Aspartate Amino Transferase 9 U/L (15-37); BUN Creatinine Ratio 18.6; Bilirubin Total 0.2 mg/dL (0.2-1.0); Calcium 9.1 mg/dL (8.5-10.1); Carbon Dioxide 23.3 mmol/L (21.0-32.0); Chloride 108 mmol/L (98-107); Estimated GFR (African America 29 (>=60); Estimated GFR (Non-African Ame 24 (>=60); Globulin 3.4 g/dL; Glucose 96 mg/dL (74-106); Phosphorus 4.4 mg/dL (2.6-4.7); Potassium 4.3 mmol/L (3.5-5.1); Sodium 141 mmol/L (136-145); Total Protein 6.8 g/dL (6.4-8.2)
[2024-01-01 12:10] LABS: PTH, Intact 63 pg/mL (15-65)
== END 2023-12-31 15:13 | disposition home or self-care (01) ==
LOC: LAB 15:13
PROVIDERS: PCP Family Medicine; Visit Provider Internal Medicine Nephrology
DX: N18.9 Chronic kidney disease, unspecified (principal); D63.1 Anemia in chronic kidney disease; N18.4 Chronic kidney disease, stage 4 (severe)
CPT/HCPCS: 36415; 80053; 83970; 84100; 85027

== ENCOUNTER 2024-01-19 09:05 | Outpatient (OUT) | payer OTHER, SELFPAY ==
--- OUTSIDE RECORDS SUMMARY | 2024-01-19 09:07 | XMS_ITS ---
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 Name Role Phone Maeve Moreno Unavailable DR MAEVE MORENO Admitting Unavailable DR MAEVE MORENO Consulting Unavailable DR MAREN GONZALEZ Primary Care Unavailable TIFFANIE, DR MCFARLANE Attending Unavailable TIFFANIE, DR MCFARLANE Consulting Unavailable DR MAEVE MORENO Attending Unavailable DR MAEVE MORENO Admitting Unavailable DR MAREN GONZALEZ Primary Care Unavailable DR MAEVE MORENO Consulting Unavailable DR MAEVE MORENO Attending Unavailable DR MAREN GONZALEZ Primary Care Unavailable DR MAEVE MORENO Admitting Unavailable TIFFANIE, DR MCFARLANE Consulting Unavailable DR MAEVE MORENO Attending Unavailable DR MAREN GONZALEZ Primary Care Unavailable DR MAEVE MORENO Admitting Unavailable TIFFANIE, DR MCFARLANE Consulting Unavailable DR MAEVE MORENO Attending Unavailable NAGEL .DR ENGEL Primary Care Unavailable TIFFANIE, DR MCFARLANE Admitting Unavailable DR MAREN GONZALEZ Consulting Unavailable DR MAREN GONZALEZ Attending Unavailable ANGEL .DR ENGEL Admitting Unavailable ANGEL .DR ENGEL Primary Care Unavailable ANGEL .DR ENGEL Consulting Unavailable ANGEL .DR ENGEL Attending Unavailable HOMckenzie .DR ENGEL Admitting Unavailable DR MAREN GONZALEZ Primary Care Unavailable DR JONATHON WYATT Consulting Unavailable DR MAEVE MORENO Consulting Unavailable DR MAEVE MORENO Attending Unavailable DR MAERN GONZALEZ Primary Care Unavailable DR MAEVE MORENO Admitting Unavailable TIFFANIE, DR MCFARLANE Consulting Unavailable DR MAEVE MORENO Attending Unavailable DR MAREN GONZALEZ Primary Care Unavailable DR MAEVE MORENO Admitting Unavailable DR MAEVE MORENO Admitting Unavailable DR MAEVE MORENO Consulting Unavailable DR MAREN GONZALEZ Primary Care DR MAEVE Jimenez Attending Unavailable Allergies Allergy Classification Reported Allergen(s) Allergy Type Date of Onset Reaction(s) Facility (19 sources) Sulfonamides (Antibiotic) Propensity to adverse reactions rash [facility] Other Encounters Encounter Date Encounter Type Care Provider Facility Start: 01-10-2024 End: 01-10-2024 ambulatory [facility] Work Phone: Start: 01-10-2024 End: 01-10-2024 Patient encounter procedure [facility] Work Phone: Start: 10-11-2023 End: 10-11-2023 ambulatory [facility] Work Phone: Start: 10-11-2023 End: 10-11-2023 Patient encounter procedure [facility] Nephrology Work Phone: Start: 06-28-2023 End: 06-28-2023 ambulatory Maeve Tiffanie Other [facility] Other Start: 06-28-2023 Office outpatient vi sit 15 minutes Maeve Moreno [facility] Start: 06-26-2023 End: 06-26-2023 ambulatory Maeve Tiffanie Other [facility] Other Start: 06-26-2023 Telephone encounter Maeve Tiffanie [facility] Start: 05-07-2023 End: 05-07-2023 ambulatory Maeve Tiffanie Other [facility] Other Start: 05-07-2023 Telephone encounter Maeve Sahnidank [facility] Start: 04-05-2023 End: 04-05-2023 ambulatory Maeve Tiffanie Other [facility] Other Start: 04-05-2023 Office outpatient vi sit 25 minutes Maeve Moreno [facility] Start: 03-27-2023 End: 03-27-2023 ambulatory Maeve Tiffanie Other [facility] Other Start: 03-27-2023 Telephone encounter Maeve Moreno [facility] Start: 03-12-2023 End: 03-12-2023 ambulatory Maeve Moreno Other [facility] Other Start: 03-12-2023 Telephone encounter Maeve Moreno [facility] Start: 12-21-2022 End: 12-21-2022 ambulatory Maeve Moreno Other [facility] Other Start: 12-21-2022 Office outpatient vi sit 25 minutes Maeve Moreno [facility] Start: 12-18-2022 End: 12-18-2022 ambulatory Maeve Moreno Other [facility] Other Start: 12-18-2022 Telephone encounter Maeve Moreno [facility] Start: 12-13-2022 End: 12-14-[address] MAEVE MORENO Facility:[facility] Start: 11-14-2022 End: 11-15-[address] MAREN JAMES . Facility:[facility] Start: 11-13-2022 Encounter for genera l adult medical examination without abnormal findings DR MAREN JAMES . [facility] Start: 11-10-2022 End: 11-11-[address] MAREN JAMES . Facility:[facility] Start: 11-10-2022 End: 11-11-2022 Encounter for general adult medical examination without abnormal findings DR MAREN JAMES . Facility:[facility] Start: 09-28-2022 End: 09-28-2022 ambulatory Maeve Moreno Other [facility] Other Start: 09-28-2022 Office outpatient vi sit 25 minutes Maeve Moreno [facility] Start: 09-26-2022 End: 09-27-[address] MAEVE MORENO Facility:[facility] Start: 07-06-2022 End: 07-06-2022 ambulatory Maeve Moreno Other [facility] Other Start: 07-06-2022 Office outpatient vi sit 25 minutes Maeve Moreno [facility] Start: 07-04-2022 End: 07-04-2022 ambulatory Maeve Moreno Other [facility] Other Start: 07-04-2022 Telephone encounter Maeve Moreno [facility] Start: 06-29-2022 End: 06-30-[address] MAEVE MORENO Facility:[facility] Start: 05-25-2022 End: 05-26-[address] MAEVE MORENO Facility:[facility] Start: 04-25-2022 End: 04-26-[address] MAEVE MORENO Facility:[facility] Start: 04-17-2022 End: 04-17-2022 ambulatory Maeve Moreno Other [facility] Other Start: 04-17-2022 Telephone encounter Maeve Moreno [facility] Start: 03-23-2022 End: 03-23-2022 ambulatory Maeve Moreno Other [facility] Other Start: 03-23-2022 Office outpatient vi sit 25 minutes Maeve Moreno [facility] Start: 03-22-2022 End: 03-23-[address] MAEVE MORENO Facility:[facility] Start: 02-06-2022 End: 02-07-[address] MAEVE MORENO Facility:[facility] Start: 01-13-2022 End: 01-14-[address] MAEVE MORENO [place] [facility] Other Start: 01-13-2022 Telephone encounter Maeve Moreno [facility] Start: 10-04-2021 End: 10-04-2021 ambulatory Maeve Moreno Other [facility] Other Start: 10-04-2021 Telephone encounter Maeve Moreno [facility] Start: 09-14-2021 End: 09-14-2021 ambulatory Maeve Moreno Other [facility] Other Start: 09-14-2021 Telephone encounter Maeve Moreno [facility] Ne[facility] Start: 08-09-2021 End: 08-09-2021 ambulatory Maeve Moreno Other [facility] Other Start: 08-09-2021 Office outpatient vi sit 25 minutes Maeve Moreno [facility] Ne[facility] Start: 07-26-2021 End: 07-26-2021 ambulatory Maeve Moreno Other [facility] Other Start: 07-26-2021 Telephone encounter Maeve Moreno [facility] 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 Start: 09-28-2020 End: 09-28-2020 ambulatory Maeve Moreno Other [facility] Other Start: 09-28-2020 Telephone encounter Maeve Moreno [facility] Nephrology Medications Current Medications Medication Drug Class(es) Dates Sig (Normalized) Sig (Original) cetirizine hydrochloride 10 mg oral tablet (20 sources) Histamine-1 Receptor Antagonist Start: 10-11-2023 take 1 tablet by mouth once daily Cetirizine (Zyrtec) 10 mg tablet Active 10 MG PO Daily October 11, 2023 1:00am FreeTextSi tablet on the tongue and allow to dissolve Orally Once a day; Note: Source Status: Taking; Provider: Tiffanie Mcfarlane ( ) take 1 tablet by mouth once abdiel y ZyrTEC Allergy 10 MG 1 tablet on the tongue and allow to dissolve Orally Once a day Active pantoprazole 40 mg delayed release oral tablet (3 sources) Proton Pump Inhibitor Start: 10-11-2023 Pantoprazole Active MG PO October 11, 2023 1:00am rivaroxaban 20 mg oral tablet (20 sources) Factor Xa Inhibitor Start: 10-11-2023 take 1 tablet by mouth once daily at mealtime Rivaroxaban Active 20 MG PO Daily October 11, 2023 1:00am FreeTextSi tablet with food Orally Once a day; Note: Source Status: Taking; Provider: Tiffanie Richardson take 1 tablet by alejandro th every twenty-four hours Xarelto 20 MG 1 tablet with food Orally Once a day Active tolvaptan 90 mg oral tablet (20 sources) Vasopressin V2 Receptor Antagonist Start: 10-11-2023 End: 12-23-2023 Tolvaptan (Polycys Kidney Dis) (Jynarque) 90 mg (AM)/ 30 mg (PM) tablets, sequential Active 0 PO per package directions 56 90 December 23, 2023 11:04pm PO PER PKG DIR Start: 03-28-2023 Jynarque 90 & 30 MG [...] Twice a day for 90 day(s) Active Tanjaynarque 60 & 30 MG TAKE ONE 60MG TABLET BY MOUTH UPON WAKING, AND TAKE ONE 30MG TABLET BY MOUTH 8 HOURS LATER orally bid for 28 day(s) Active Completed/Discontinued Medications Medication Drug Class(es) Dates Sig (Normalized) Sig (Original) Triamcinolone (17 sources) Corticosteroid Start: 03-23-2020 IBRAHIMA banda g Mar, 40 mg Payers Date Payer Category Payer Unknown [id number] 1980 Unknown [id number] 1980 Unknown [id number] 1980 Unknown [id number] 1980 Unknown [id number] 1980 Unknown [id number] 1980 Unknown [id number] 1980 Unknown [id number] 1980 Unknown [id number] 1980 Unknown [id number] 1958 Private Health Insurance [id number] Private Health Insurance [employer] [id number] Self-pay Self Pay [id number] Unknown [facility] [id number] Plan of Treatment Date Care Activity Detail Author Comprehensive metabo lic 1999 panel - Serum or Plasma [facility] enter Comprehensive metabo lic 1999 panel - Serum or Plasma [facility] enter [facility] Problems Active Problems Problem Classification Problem Date [...] kidney, unspecified] Onset: 08-09-2021 Resolved: 03-23-2022 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 Comment on above: Performed By: #### L IPID, CMP, TSH, T7 #### [facility] [address] [place] [address] Dr. Jessica Mosqueda HEMOGRAM AND PLATELon 2022 Hematocrit (Bld) [Volume fraction] 41.0 % Normal 36.0-48.0 [facility] Comment on above: Performed By: #### H H #### [facility] [address] [place] [address] Dr. Jessica Mosqueda Hemoglobin (Bld) [Mass/Vol] 13.0 g/dL Normal 12.0-16.[address] [facility] Comment on above: Performed By: #### H H #### [facility] [address] [place] [address] Dr. Jessica Mosqueda MCH (RBC) [Entitic mass] 28.6 pg Normal 26.7-34.0 [facility] Comment on above: Performed By: #### H H #### [facility] [address] [place] [address] Dr. Jessica Mosqueda MCHC (RBC) [Mass/Vol] 31.7 g/dL Normal 29.9-35.[address] [facility] Comment on above: Performed By: #### H H #### [facility] [address] [place] [address] Dr. Jessica Mosqueda MCV (RBC) [Entitic vol] 90.3 fL Normal 81.0-99.[address] [facility] Comment on above: Performed By: #### H H #### [facility] [address] [place] [address] Dr. Jessica Mosqueda PLT 133 103/ul Critically low 150-450 [facility] Comment on above: Performed By: #### H H #### [facility] [address] [place] [address] Dr. Jessica Mosqueda RBC 4.54 106/ul Normal 4.20-5.40 [facility] Comment on above: Performed By: #### H H #### [facility] [address] [place] [address] Dr. Jessica Mosqueda WBC 9.0 103/ul Normal 4.0-11.0 [facility] Comment on above: Performed By: #### H H #### [facility] [address] [place] [address] Dr. Jessica Mosqueda PHOSPHORUSon 12-13-2022 Phosphate [Mass/Vol] 4.3 mg/dL Normal 2.6-4.7 [facility] Comment on above: Performed By: #### P THINT #### [facility] [address] [place] [address] Dr. Jessica Mosqueda PROF 14(COMP METB)on 023 Albumin [Mass/Vol] 3.8 g/dL Normal 3.4-5.0 [facility] Comment on above: Performed By: #### P THINT #### [facility] [address] [place] [address] Dr. Jessica Mosqueda Albumin/Globulin [Mass ratio] 1.1 {ratio} Normal [facility] Comment on above: Performed By: #### P THINT #### [facility] [address] [place] [address] Dr. Jessica Mosqueda ALP [Catalytic activity/Vol] 36 U/L Critically low 46-116 [facility] Comment on above: Performed By: #### P THINT #### [facility] [address] [place] [address] Dr. Jessica Mosqueda ALT [Catalytic activity/Vol] 14 U/L Normal 14-59 [facility] Comment on above: Performed By: #### P THINT #### [facility] [address] [place] [address] Dr. Jessica Mosqueda Anion gap [Moles/Vol] 11.9 mmol/L Normal [facility] Comment on above: Performed By: #### P THINT #### [facility] [address] [place] [address] Dr. Jessica Mosqueda AST [Catalytic activity/Vol] 13 U/L Critically low 15-37 [facility] Comment on above: Performed By: #### P THINT #### [facility] [address] [place] [address] Dr. Jessica Mosqueda Bilirubin [Mass/Vol] 0.3 mg/dL Normal 0.2-1.0 [facility] Comment on above: Performed By: #### P THINT #### [facility] [address] [address] [address] Jessica Mosqueda Calcium [Mass/Vol] 9.0 mg/dL Normal 8.5-10.1 [facility] Comment on above: Performed By: #### P THINT #### [facility] [address] [address] [address] Jessica Mosqueda Chloride [Moles/Vol] 107 mmol/L Normal 98-107 [facility] Comment on above: Performed By: #### P THINT #### [facility] [address] [address] [address] Jessica Mosqueda CO2 [Moles/Vol] 28.1 mmol/L Normal 21.0-32.0 [facility] Comment on above: Performed By: #### P THINT #### [facility] [address] [address] [address] Jessica Mosqueda Creatinine [Mass/Vol] 2.10 mg/dL Critically high 0.55-1.02 [facility] Comment on above: Performed By: #### P THINT #### [facility] [address] [place] [address] Dr. Jessica Mosqueda EGFR-AF KOSOVAN 31 mL/min/1.73m2 Critically low >=[address] [facility] Comment on above: Performed By: #### P THINT #### [facility] [address] [address] [address] Jessica Mosqueda EGFR-NON AF KOSOVAN 26 mL/min/1.73m2 Critically low >=60 [facility] Comment on above: Performed By: #### P THINT #### [facility] [address] [address] [address] Jessica Mosqueda Globulin (S) [Mass/Vol] 3.6 g/dL Normal [facility] Comment on above: Performed By: #### P THINT #### [facility] [address] [address] [address] Jessica Mosqueda Glucose [Mass/Vol] 82 mg/dL Normal 74-106 [facility] Comment on above: Performed By: #### P THINT #### [facility] [address] [address] [address] Jessica Mosqueda Potassium [Moles/Vol] 4.0 mmol/L Normal 3.5-5.1 [facility] Comment on above: Performed By: #### P THINT #### [facility] [address] [address] [address] Jessica Mosqueda Protein [Mass/Vol] 7.4 g/dL Normal 6.4-8.2 [facility] Comment on above: Performed By: #### P THINT #### [facility] [address] [address] [address] Jessica Mosqueda Sodium [Moles/Vol] 143 mmol/L Normal 136-145 [facility] Comment on above: Performed By: #### P THINT #### [facility] [address] [address] [address] Jessica Mosqueda Urea nitrogen [Mass/Vol] 23.0 mg/dL Critically high 7.0-18.0 [facility] Comment on above: Performed By: #### P THINT #### [facility] [address] [address] [address] Jessica Mosqueda Urea nitrogen/Creatinine [Mass ratio] 11.0 mg/mg Normal [facility] Comment on above: Performed By: #### P THINT #### [facility] [address] [address] [address] Jessica Mosqueda MG MAMM SCREEN 3D MATILDA CADon 11-14-2022 MG MAMM SCREEN 3D MATILDA CAD Patient: ISABEL RIVERA Exam Date: 11/14/2022 : 1980 Gender:F Ordering : DR MAREN JAMES . Admission #: [id number] Family : Order #: [id number] CLICK HERE TO VIEW EXAM RADIOLOGY REPORT [...] cancer at age 51. LOCATION: [facility] BREAST COMPOSITION: Extremely dense, which lowers [...] M.D. on 11/15/2022 at 07:[address] [facility] INSULINon 11-11-2022 Insulin 7.2 uIU/mL Normal 2.6-24.[address] [facility] Comment on above: Performed By: #### I NSULIN #### [facility] [address] [place] [address] Dr. Jessica Mosqueda CBC AUTO DIFFon 11-10-2022 BASO # 0.0 103/ul Normal 0.0-0.1 [facility] Comment on above: Performed By: #### L IPID, CMP, TSH, T7 #### [facility] [address] [address] [address] Jessica Mosqueda Basophils/100 WBC (Bld) 0.5 % Normal 0.2-2.[address] [facility] Comment on above: Performed By: #### L IPID, CMP, TSH, T7 #### [facility] [address] [address] [address] Jessica Mosqueda EO # 0.3 103/ul Normal 0.0-0.7 [facility] Comment on above: Performed By: #### L IPID, CMP, TSH, T7 #### [facility] [address] [address] [address] Jessica Mosqueda Eosinophils/100 WBC (Bld) 3.6 % Normal 0.9-7.[address] [facility] Comment on above: Performed By: #### L IPID, CMP, TSH, T7 #### [facility] [address] [place] [address] Dr. Jessica Mosqueda Erythrocyte distribution width (RBC) [Ratio] 13.2 % Normal 11.0-15.0 [facility] Comment on above: Performed By: #### L IPID, CMP, TSH, T7 #### [facility] [address] [place] [address] Dr. Jessica Mosqueda Hematocrit (Bld) [Volume fraction] 41.9 % Normal 36.0-48.[address] [facility] Comment on above: Performed By: #### L IPID, CMP, TSH, T7 #### [facility] [address] [place] [address] Dr. Jessica Mosqueda Hemoglobin (Bld) [Mass/Vol] 13.3 g/dL Normal 12.0-16.0 [facility] Comment on above: Performed By: #### L IPID, CMP, TSH, T7 #### [facility] [address] [place] [address] Dr. Jessica Mosqueda IG # 0.02 10e3/ul Normal 0.00-0.[address] [facility] Comment on above: Performed By: #### L IPID, CMP, TSH, T7 #### [facility] [address] [place] [address] Dr. Jessica Mosqueda IG % 0.3 % Normal 0.0-0.[address] [facility] Comment on above: Performed By: #### L IPID, CMP, TSH, T7 #### [facility] [address] [place] [address] Dr. Jessica Mosqueda LYMPH # 2.2 103/ul Normal 1.2-3.[address] [facility] Comment on above: Performed By: #### L IPID, CMP, TSH, T7 #### [facility] [address] [place] [address] Dr. Jessica Mosqueda Lymphocytes/100 WBC (Bld) 29.6 % Normal 20.5-60.[address] [facility] Comment on above: Performed By: #### L IPID, CMP, TSH, T7 #### [facility] [address] [place] [address] Dr. Jessica Mosqueda MANUAL DIFF REQ NO Normal [facility] Comment on above: Performed By: #### L IPID, CMP, TSH, T7 #### [facility] [address] [place] [address] Dr. Jessica Mosqueda MCH (RBC) [Entitic mass] 28.9 pg Normal 26.7-34.[address] [facility] Comment on above: Performed By: #### L IPID, CMP, TSH, T7 #### [facility] [address] [place] [address] Dr. Jessica Mosqueda MCHC (RBC) [Mass/Vol] 31.7 g/dL Normal 29.9-35.[address] [facility] Comment on above: Performed By: #### L IPID, CMP, TSH, T7 #### [facility] [address] [place] [address] Dr. Jessica Mosqueda MCV (RBC) [Entitic vol] 91.1 fL Normal 81.0-99.0 [facility] Comment on above: Performed By: #### L IPID, CMP, TSH, T7 #### [facility] [address] [place] [address] Dr. Jessica Mosqueda MONO # 0.5 103/ul Normal 0.3-0.8 [facility] Comment on above: Performed By: #### L IPID, CMP, TSH, T7 #### [facility] [address] [place] [address] Dr. Jessica Mosqueda Monocytes/100 WBC (Bld) 6.1 % Normal 1.7-12.0 [facility] Comment on above: Performed By: #### L IPID, CMP, TSH, T7 #### [facility] [address] [place] [address] Dr. Jessica Mosqueda NEUT # 4.4 103/ul Normal 1.4-6.5 [facility] Comment on above: Performed By: #### L IPID, CMP, TSH, T7 #### [facility] [address] [place] [address] Dr. Jessica Mosqueda Neutrophils/100 WBC (Bld) 59.9 % Normal 43.0-75.[address] [facility] Comment on above: Performed By: #### L IPID, CMP, TSH, T7 #### [facility] [address] [address] [address] Jessica Mosqueda Platelet mean volume (Bld) [Entitic vol] 12.5 fL Normal 9.5-13.[address] [facility] Comment on above: Performed By: #### L IPID, CMP, TSH, T7 #### [facility] [address] [address] [address] Jessica Mosqueda PLT 157 103/ul Normal 150-[address] [facility] Comment on above: Performed By: #### L IPID, CMP, TSH, T7 #### [facility] [address] [address] [address] Jessica Mosqueda RBC 4.60 106/ul Normal 4.20-5.[address] [facility] Comment on above: Performed By: #### L IPID, CMP, TSH, T7 #### [facility] [address] [place] [address] Dr. Jessica Mosqueda WBC 7.3 103/ul Normal 4.0-11.0 [facility] Comment on above: Performed By: #### L IPID, CMP, TSH, T7 #### [facility] [address] [place] [address] Dr. Jessica Mosqueda FREE THYROXINE INDEX T7on FTI 2.51 Normal 1.30-4.[address] [facility] Comment on above: Performed By: #### L IPID, CMP, TSH, T7 #### [facility] [address] [place] [address] Dr. Jessica Mosqueda T3U 38.0 % Normal 30.0-39.0 [facility] Comment on above: Performed By: #### L IPID, CMP, TSH, T7 #### [facility] [address] [place] [address] Dr. Jessica Mosqueda T4 [Mass/Vol] 6.60 ug/dL Normal 4.80-13.90 [facility] Comment on above: Performed By: #### L IPID, CMP, TSH, T7 #### [facility] [address] [address] [address] Jessica Mosqueda GLYCOHEMOGLOBIN A1Con 2022 ADA RECOMMENDATION SEE BELOW Normal [facility] Comment on above: Result Comment: ADA RECOMMENDED LIMIT 4.0 - 6.0 ADA THERAPEUTIC TARGET < 7.0 ACTION SUGGESTED > 7.0 Performed By: #### P THINT #### [facility] [address] [address] [address] Jessica Mosqueda Glucose [Mass/Vol] 111 mg/dL Normal [facility] Comment on above: Performed By: #### P THINT #### [facility] [address] [place] [address] Dr. Jessica Mosqueda HbA1c (Bld) [Mass fraction] 5.5 % Normal 4.5-6.2 [facility] Comment on above: Performed By: #### P THINT #### [facility] [address] [place] [address] Dr. Jessica Mosqueda IRONon 11-10-2022 Iron [Mass/Vol] 58.0 ug/dL Normal 50.0-170.0 [facility] Comment on above: Performed By: #### P THINT #### [facility] [address] [place] [address] Dr. Jessica Mosqueda LIPID PROFILEon 11-10-2022 CHOL-HDL RATIO NORM SEE BELOW Normal [facility] Comment on above: Result Comment: 3.3 - 4.4 LOW RISK 4.4 - 7.1 AVERAGE RISK 7.1 - 11.0 MODERATE RISK >11.0 HIGH RISK Performed By: #### L IPID, CMP, TSH, T7 #### [facility] [address] [place] [address] Dr. Jessica Mosqueda Cholesterol [Mass/Vol] 205 mg/dL Critically high <=200 [facility] Comment on above: Performed By: #### L IPID, CMP, TSH, T7 #### [facility] [address] [place] [address] Dr. Jessica Mosqueda Cholesterol in HDL [Mass/Vol] 60 mg/dL Normal 40-60 [facility] Comment on above: Performed By: #### L IPID, CMP, TSH, T7 #### [facility] [address] [address] [address] Jessica Mosqueda Cholesterol in LDL [Mass/Vol] 127.4 mg/dL Normal [facility] Comment on above: Performed By: #### L IPID, CMP, TSH, T7 #### [facility] [address] [address] [address] Jessica Mosqueda Cholesterol.total/Cho lesterol in HDL [Mass ratio] 3.4 {ratio} Normal [facility] Comment on above: Performed By: #### L IPID, CMP, TSH, T7 #### [facility] [address] [address] [address] Jessica Mosqueda HDL NORMAL > or = 60 mg/dl - LOW CARDIOVASCULAR RISK <40 mg/dl - HIGH CARDIOVASCULAR RISK Normal [facility] Comment on above: Performed By: #### L IPID, CMP, TSH, T7 #### [facility] [address] [address] [address] Jessica Mosqueda LDL CALC NORMAL SEE BELOW Normal [facility] Comment on above: Result Comment: <100 mg/dl OPTIMAL 100 - 129 mg/dl NEAR OR ABOVE OPTIMAL 130 - 159 mg/dl BORDERLINE HIGH 160 - 189 mg/dl HIGH >190 mg/dl VERY HIGH Performed By: #### L IPID, CMP, TSH, T7 #### [facility] [address] [address] [address] Jessica Mosqueda Triglyceride [Mass/Vol] 88 mg/dL Normal <=[address] [facility] Comment on above: Performed By: #### L IPID, CMP, TSH, T7 #### [facility] [address] [address] [address] Jessica Mosqueda VLDL CALC 17.6 mg/dL Normal [facility] Comment on above: Performed By: #### L IPID, CMP, TSH, T7 #### [facility] [address] [address] [address] Jessica Mosqueda PROF 14(COMP METB)on 023 Albumin [Mass/Vol] 3.8 g/dL Normal 3.4-5.0 [facility] Comment on above: Performed By: #### L IPID, CMP, TSH, T7 #### [facility] [address] [place] [address] Dr. Jessica Mosqueda Albumin/Globulin [Mass ratio] 1.1 {ratio} Normal [facility] Comment on above: Performed By: #### L IPID, CMP, TSH, T7 #### [facility] [address] [place] [address] Dr. Jessica Mosqueda ALP [Catalytic activity/Vol] 37 U/L Critically low 46-116 [facility] Comment on above: Performed By: #### L IPID, CMP, TSH, T7 #### [facility] [address] [place] [address] Dr. Jessica Mosqueda ALT [Catalytic activity/Vol] 16 U/L Normal 14-59 [facility] Comment on above: Performed By: #### L IPID, CMP, TSH, T7 #### [facility] [address] [address] [address] Jessica Mosqueda Anion gap [Moles/Vol] 13.7 mmol/L Normal [facility] Comment on above: Performed By: #### L IPID, CMP, TSH, T7 #### [facility] [address] [place] [address] Dr. Jessica Mosqueda AST [Catalytic activity/Vol] 14 U/L Critically low 15-37 [facility] Comment on above: Performed By: #### L IPID, CMP, TSH, T7 #### [facility] [address] [place] [address] Dr. Jessica Mosqueda Bilirubin [Mass/Vol] 0.4 mg/dL Normal 0.2-1.0 [facility] Comment on above: Performed By: #### L IPID, CMP, TSH, T7 #### [facility] [address] [place] [address] Dr. Jessica Mosqueda Calcium [Mass/Vol] 9.6 mg/dL Normal 8.5-10.1 [facility] Comment on above: Performed By: #### L IPID, CMP, TSH, T7 #### [facility] [address] [address] [address] Jessica Mosqueda Chloride [Moles/Vol] 107 mmol/L Normal 98-[address] [facility] Comment on above: Performed By: #### L IPID, CMP, TSH, T7 #### [facility] [address] [address] [address] Jessica Mosqueda CO2 [Moles/Vol] 27.5 mmol/L Normal 21.0-32.0 [facility] Comment on above: Performed By: #### L IPID, CMP, TSH, T7 #### [facility] [address] [place] [address] Dr. Jessica Mosqueda Creatinine [Mass/Vol] 1.74 mg/dL Critically high 0.55-1.02 [facility] Comment on above: Performed By: #### L IPID, CMP, TSH, T7 #### [facility] [address] [place] [address] Dr. Jessica Mosqueda EGFR-AF KOSOVAN 39 mL/min/1.73m2 Critically low >=[address] [facility] Comment on above: Performed By: #### L IPID, CMP, TSH, T7 #### [facility] [address] [place] [address] Dr. Jessica Mosqueda EGFR-NON AF KOSOVAN 32 mL/min/1.73m2 Critically low >=[address] [facility] Comment on above: Performed By: #### L IPID, CMP, TSH, T7 #### [facility] [address] [place] [address] Dr. Jessica Mosqueda Globulin (S) [Mass/Vol] 3.4 g/dL Normal [facility] Comment on above: Performed By: #### L IPID, CMP, TSH, T7 #### [facility] [address] [place] [address] Dr. Jessica Mosqueda Glucose [Mass/Vol] 95 mg/dL Normal 74-106 [facility] Comment on above: Performed By: #### L IPID, CMP, TSH, T7 #### [facility] [address] [place] [address] Dr. Jessica Mosqueda Potassium [Moles/Vol] 4.2 mmol/L Normal 3.5-5.1 [facility] Comment on above: Performed By: #### L IPID, CMP, TSH, T7 #### [facility] [address] [place] [address] Dr. Jessica Mosqueda Protein [Mass/Vol] 7.2 g/dL Normal 6.4-8.2 [facility] Comment on above: Performed By: #### L IPID, CMP, TSH, T7 #### [facility] [address] [place] [address] Dr. Jessica Mosqueda Sodium [Moles/Vol] 144 mmol/L Normal 136-145 [facility] Comment on above: Performed By: #### L IPID, CMP, TSH, T7 #### [facility] [address] [place] [address] Dr. Jessica Mosqueda Urea nitrogen [Mass/Vol] 25.0 mg/dL Critically high 7.0-18.0 [facility] Comment on above: Performed By: #### L IPID, CMP, TSH, T7 #### [facility] [address] [place] [address] Dr. Jessica Mosqueda Urea nitrogen/Creatinine [Mass ratio] 14.4 mg/mg Normal [facility] Comment on above: Performed By: #### L IPID, CMP, TSH, T7 #### [facility] [address] [place] [address] Dr. Jessica Mosqueda TSHon 11-10-2022 TSH 1.244 uIU/mL Normal 0.358-3.740 [facility] Comment on above: Performed By: #### L IPID, CMP, TSH, T7 #### [facility] [address] [place] [address] Dr. Jessica Mosqueda PTH INTACTon 09-28-2022 PTH, Intact 43 pg/mL Normal 15-65 [facility] Comment on above: Performed By: #### L IPID, CMP, TSH, T7 #### [facility] [address] [place] [address] Dr. Jessica Mosqueda HEMOGRAM AND PLATELon 2022 Hematocrit (Bld) [Volume fraction] 39.0 % Normal 36.0-48.0 [facility] Comment on above: Performed By: #### H H #### [facility] [address] [place] [address] Dr. Jessica Mosqueda Hemoglobin (Bld) [Mass/Vol] 12.3 g/dL Normal 12.0-16.0 [facility] Comment on above: Performed By: #### H H #### [facility] [address] [place] [address] Dr. Jessica Mosqueda MCH (RBC) [Entitic mass] 29.1 pg Normal 26.7-34.0 [facility] Comment on above: Performed By: #### H H #### [facility] [address] [place] [address] Dr. Jessica Mosqueda MCHC (RBC) [Mass/Vol] 31.5 g/dL Normal 29.9-35.[address] [facility] Comment on above: Performed By: #### H H #### [facility] [address] [place] [address] Dr. Jessica Mosqueda MCV (RBC) [Entitic vol] 92.4 fL Normal 81.0-99.0 [facility] Comment on above: Performed By: #### H H #### [facility] [address] [place] [address] Dr. Jessica Mosqueda PLT 131 103/ul Critically low 150-450 [facility] Comment on above: Performed By: #### H H #### [facility] [address] [place] [address] Dr. Jessica Mosqueda RBC 4.22 106/ul Normal 4.20-5.[address] [facility] Comment on above: Performed By: #### H H #### [facility] [address] [place] [address] Dr. Jessica Mosqueda WBC 8.6 103/ul Normal 4.0-11.[address] [facility] Comment on above: Performed By: #### H H #### [facility] [address] [address] [address] Jessica Mosqueda PHOSPHORUSon 09-26-2022 Phosphate [Mass/Vol] 4.3 mg/dL Normal 2.6-4.7 [facility] Comment on above: Performed By: #### P THINT #### [facility] [address] [place] [address] Dr. Jessica Mosqueda PROF 14(COMP METB)on 023 Albumin [Mass/Vol] 3.9 g/dL Normal 3.4-5.0 [facility] Comment on above: Performed By: #### P THINT #### [facility] [address] [place] [address] Dr. Jessica Mosqueda Albumin/Globulin [Mass ratio] 1.1 {ratio} Normal [facility] Comment on above: Performed By: #### P THINT #### [facility] [address] [place] [address] Dr. Jessica Mosqueda ALP [Catalytic activity/Vol] 34 U/L Critically low 46-116 [facility] Comment on above: Performed By: #### P THINT #### [facility] [address] [place] [address] Dr. Jessica Mosqueda ALT [Catalytic activity/Vol] 13 U/L Critically low 14-59 [facility] Comment on above: Performed By: #### P THINT #### [facility] [address] [place] [address] Dr. Jessica Mosqueda Anion gap [Moles/Vol] 13.6 mmol/L Normal [facility] Comment on above: Performed By: #### P THINT #### [facility] [address] [place] [address] Dr. Jessica Mosqueda AST [Catalytic activity/Vol] 9 U/L Critically low 15-37 [facility] Comment on above: Performed By: #### P THINT #### [facility] [address] [place] [address] Dr. Jessica Mosqueda Bilirubin [Mass/Vol] 0.3 mg/dL Normal 0.2-1.0 [facility] Comment on above: Performed By: #### P THINT #### [facility] [address] [address] [address] Jessica Mosqueda Calcium [Mass/Vol] 9.5 mg/dL Normal 8.5-10.1 [facility] Comment on above: Performed By: #### P THINT #### [facility] [address] [address] [address] Jessica Mosqueda Chloride [Moles/Vol] 105 mmol/L Normal 98-107 [facility] Comment on above: Performed By: #### P THINT #### [facility] [address] [address] [address] Jessica Mosqueda CO2 [Moles/Vol] 24.7 mmol/L Normal 21.0-32.0 [facility] Comment on above: Performed By: #### P THINT #### [facility] [address] [address] [address] Jessica Mosqueda Creatinine [Mass/Vol] 1.67 mg/dL Critically high 0.55-1.02 [facility] Comment on above: Performed By: #### P THINT #### [facility] [address] [address] [address] Jessica Mosqueda EGFR-AF KOSOVAN 41 mL/min/1.73m2 Critically low >=60 [facility] Comment on above: Performed By: #### P THINT #### [facility] [address] [address] [address] Jessica Mosqueda EGFR-NON AF KOSOVAN 34 mL/min/1.73m2 Critically low >=[address] [facility] Comment on above: Performed By: #### P THINT #### [facility] [address] [address] [address] Jessica Mosqueda Globulin (S) [Mass/Vol] 3.5 g/dL Normal [facility] Comment on above: Performed By: #### P THINT #### [facility] [address] [address] [address] Jessica Mosqueda Glucose [Mass/Vol] 94 mg/dL Normal 74-106 [facility] Comment on above: Performed By: #### P THINT #### [facility] [address] [address] [address] Jessica Mosqueda Potassium [Moles/Vol] 4.4 mmol/L Normal 3.5-5.1 [facility] Comment on above: Performed By: #### P THINT #### [facility] [address] [address] [address] Jessica Mosqueda Protein [Mass/Vol] 7.4 g/dL Normal 6.4-8.2 [facility] Comment on above: Performed By: #### P THINT #### [facility] [address] [address] [address] Jessica Mosqueda Sodium [Moles/Vol] 139 mmol/L Normal 136-145 [facility] Comment on above: Performed By: #### P THINT #### [facility] [address] [address] [address] Jessica Mosqueda Urea nitrogen [Mass/Vol] 29.0 mg/dL Critically high 7.0-18.0 [facility] Comment on above: Performed By: #### P THINT #### [facility] [address] [address] [address] Jessica Mosqueda Urea nitrogen/Creatinine [Mass ratio] 17.4 mg/mg Normal [facility] Comment on above: Performed By: #### P THINT #### [facility] [address] [address] [address] Jessica Mosqueda PTH INTACTon 06-30-2022 PTH, Intact 64 pg/mL Normal 15-65 [facility] Comment on above: Performed By: #### P THINT #### [facility] [address] [address] [address] Jessica Mosqueda HEMOGRAM AND PLATELon 2021 Hematocrit (Bld) [Volume fraction] 37.5 % Normal 36.0-48.0 [facility] Comment on above: Performed By: #### P THINT #### [facility] [address] [address] [address] Jessica Mosqueda Hemoglobin (Bld) [Mass/Vol] 12.1 g/dL Normal 12.0-16.0 [facility] Comment on above: Performed By: #### P THINT #### [facility] [address] [place] [address] Dr. Jessica Mosqueda MCH (RBC) [Entitic mass] 29.0 pg Normal 26.7-34.0 [facility] Comment on above: Performed By: #### P THINT #### [facility] [address] [place] [address] Dr. Jessica Mosqueda MCHC (RBC) [Mass/Vol] 32.3 g/dL Normal 29.9-35.[address] [facility] Comment on above: Performed By: #### P THINT #### [facility] [address] [place] [address] Dr. Jessica Mosqueda MCV (RBC) [Entitic vol] 89.9 fL Normal 81.0-99.0 [facility] Comment on above: Performed By: #### P THINT #### [facility] [address] [place] [address] Dr. Jessica Mosqueda PLT 170 103/ul Normal 150-[address] [facility] Comment on above: Performed By: #### P THINT #### [facility] [address] [place] [address] Dr. Jessica Mosqueda RBC 4.17 106/ul Critically low 4.20-5.40 [facility] Comment on above: Performed By: #### P THINT #### [facility] [address] [place] [address] Dr. Jessica Mosqueda WBC 9.4 103/ul Normal 4.0-11.[address] [facility] Comment on above: Performed By: #### P THINT #### [facility] [address] [place] [address] Dr. Jessica Mosqueda PHOSPHORUSon 06-29-2022 Phosphate [Mass/Vol] 3.8 mg/dL Normal 2.6-4.7 [facility] Comment on above: Performed By: #### L IPID, CMP, TSH, T7 #### [facility] [address] [place] [address] Dr. Jessica Mosqueda PROF 14(COMP METB)on 022 Albumin [Mass/Vol] 4.0 g/dL Normal 3.4-5.0 [facility] Comment on above: Performed By: #### L IPID, CMP, TSH, T7 #### [facility] [address] [address] [address] Jessica Mosqueda Albumin/Globulin [Mass ratio] 1.2 {ratio} Normal [facility] Comment on above: Performed By: #### L IPID, CMP, TSH, T7 #### [facility] [address] [address] [address] Jessica Mosqueda ALP [Catalytic activity/Vol] 38 U/L Critically low 46-116 [facility] Comment on above: Performed By: #### L IPID, CMP, TSH, T7 #### [facility] [address] [place] [address] Dr. Jessica Mosqueda ALT [Catalytic activity/Vol] 13 U/L Critically low 14-59 [facility] Comment on above: Performed By: #### L IPID, CMP, TSH, T7 #### [facility] [address] [address] [address] Jessica Mosqueda Anion gap [Moles/Vol] 13.1 mmol/L Normal [facility] Comment on above: Performed By: #### L IPID, CMP, TSH, T7 #### [facility] [address] [address] [address] Jessica Mosqueda AST [Catalytic activity/Vol] 14 U/L Critically low 15-37 [facility] Comment on above: Performed By: #### L IPID, CMP, TSH, T7 #### [facility] [address] [address] [address] Jessica Mosqueda Bilirubin [Mass/Vol] 0.4 mg/dL Normal 0.2-1.0 [facility] Comment on above: Performed By: #### L IPID, CMP, TSH, T7 #### [facility] [address] [address] [address] Jessica Mosqueda Calcium [Mass/Vol] 9.2 mg/dL Normal 8.5-10.1 [facility] Comment on above: Performed By: #### L IPID, CMP, TSH, T7 #### [facility] [address] [address] [address] Jessica Mosqueda Chloride [Moles/Vol] 104 mmol/L Normal 98-[address] [facility] Comment on above: Performed By: #### L IPID, CMP, TSH, T7 #### [facility] [address] [address] [address] Jessica Mosqueda CO2 [Moles/Vol] 26.1 mmol/L Normal 21.0-32.0 [facility] Comment on above: Performed By: #### L IPID, CMP, TSH, T7 #### [facility] [address] [place] [address] Dr. Jessica Mosqueda Creatinine [Mass/Vol] 1.86 mg/dL Critically high 0.55-1.02 [facility] Comment on above: Performed By: #### L IPID, CMP, TSH, T7 #### [facility] [address] [place] [address] Dr. Jessica Mosqueda EGFR-AF KOSOVAN 36 mL/min/1.73m2 Critically low >=[address] [facility] Comment on above: Performed By: #### L IPID, CMP, TSH, T7 #### [facility] [address] [place] [address] Dr. Jessica Mosqueda EGFR-NON AF KOSOVAN 30 mL/min/1.73m2 Critically low >=[address] [facility] Comment on above: Performed By: #### L IPID, CMP, TSH, T7 #### [facility] [address] [place] [address] Dr. Jessica Mosqueda Globulin (S) [Mass/Vol] 3.4 g/dL Normal [facility] Comment on above: Performed By: #### L IPID, CMP, TSH, T7 #### [facility] [address] [address] [address] Jessica Mosqueda Glucose [Mass/Vol] 84 mg/dL Normal 74-106 [facility] Comment on above: Performed By: #### L IPID, CMP, TSH, T7 #### [facility] [address] [place] [address] Dr. Jessica Mosqueda Potassium [Moles/Vol] 4.2 mmol/L Normal 3.5-5.1 [facility] Comment on above: Performed By: #### L IPID, CMP, TSH, T7 #### [facility] [address] [place] [address] Dr. Jessica Mosqueda Protein [Mass/Vol] 7.4 g/dL Normal 6.4-8.2 [facility] Comment on above: Performed By: #### L IPID, CMP, TSH, T7 #### [facility] [address] [place] [address] Dr. Jessica Mosqueda Sodium [Moles/Vol] 139 mmol/L Normal 136-145 [facility] Comment on above: Performed By: #### L IPID, CMP, TSH, T7 #### [facility] [address] [place] [address] Dr. Jessica Mosqueda Urea nitrogen [Mass/Vol] 26.0 mg/dL Critically high 7.0-18.0 [facility] Comment on above: Performed By: #### L IPID, CMP, TSH, T7 #### [facility] [address] [place] [address] Dr. Jessica Mosqueda Urea nitrogen/Creatinine [Mass ratio] 14.0 mg/mg Normal [facility] Comment on above: Performed By: #### L IPID, CMP, TSH, T7 #### [facility] [address] [place] [address] Dr. Jessica Mosqueda UA RANDOMon 06-29-2022 Bilirubin Ql (U) Negative Normal NEGATIVE [facility] Comment on above: Performed By: #### L IPID, CMP, TSH, T7 #### [facility] [address] [place] [address] Dr. Jessica Mosqueda Clarity (U) CLEAR Normal CLEAR [facility] Comment on above: Performed By: #### L IPID, CMP, TSH, T7 #### [facility] [address] [place] [address] Dr. Jessica Mosqueda Color (U) LT. YELLOW Normal YELLOW [facility] Comment on above: Performed By: #### L IPID, CMP, TSH, T7 #### [facility] [address] [place] [address] Dr. Jessica Mosqueda Glucose Ql (U) Negative Normal NEGATIVE [facility] Comment on above: Performed By: #### L IPID, CMP, TSH, T7 #### [facility] [address] [address] [address] Jessica Mosqueda Hemoglobin Ql (U) Negative Normal NEGATIVE [facility] Comment on above: Performed By: #### L IPID, CMP, TSH, T7 #### [facility] [address] [place] [address] Dr. Jessica Mosqueda Ketones Ql (U) Negative Normal NEGATIVE [facility] Comment on above: Performed By: #### L IPID, CMP, TSH, T7 #### [facility] [address] [place] [address] Dr. Jessica Mosqueda LEUKOCYTES Negative Normal NEGATIVE [facility] Comment on above: Performed By: #### L IPID, CMP, TSH, T7 #### [facility] [address] [place] [address] Dr. Jessica Mosqueda Nitrite Ql (U) Negative Normal NEGATIVE [facility] Comment on above: Performed By: #### L IPID, CMP, TSH, T7 #### [facility] [address] [place] [address] Dr. Jessica Mosqueda pH (U) 6.0 [pH] Normal 5-9 [facility] Comment on above: Performed By: #### L IPID, CMP, TSH, T7 #### [facility] [address] [address] [address] Jessica Mosqueda SPEC GRAVITY <=1.005 Abnormal 1.005-<=1.025 [facility] Comment on above: Performed By: #### L IPID, CMP, TSH, T7 #### [facility] [address] [place] [address] Dr. Jessica Mosqueda UA PROTEIN Negative Normal NEGATIVE/ TRACE [facility] Comment on above: Performed By: #### L IPID, CMP, TSH, T7 #### [facility] [address] [place] [address] Dr. Jessica Mosqueda Urobilinogen Qn (U) 0.2 {Fran'U}/dL Normal 0.2 - 1. 0 [facility] Comment on above: Performed By: #### L IPID, CMP, TSH, T7 #### [facility] [address] [place] [address] Dr. Jessica Mosqueda PROF 14(COMP METB)on 022 Albumin [Mass/Vol] 3.9 g/dL Normal 3.4-5.0 [facility] Comment on above: Performed By: #### P THINT #### [facility] [address] [place] [address] Dr. Jessica Mosqueda Albumin/Globulin [Mass ratio] 1.1 {ratio} Normal [facility] Comment on above: Performed By: #### P THINT #### [facility] [address] [place] [address] Dr. Jessica Mosqueda ALP [Catalytic activity/Vol] 36 U/L Critically low 46-116 [facility] Comment on above: Performed By: #### P THINT #### [facility] [address] [place] [address] Dr. Jessica Mosqueda ALT [Catalytic activity/Vol] 17 U/L Normal 14-59 [facility] Comment on above: Performed By: #### P THINT #### [facility] [address] [place] [address] Dr. Jessica Mosqueda Anion gap [Moles/Vol] 13.9 mmol/L Normal Th [facility] Comment on above: Performed By: #### P THINT #### [facility] [address] [place] [address] Dr. Jessica Mosqueda AST [Catalytic activity/Vol] 11 U/L Critically low 15-37 [facility] Comment on above: Performed By: #### P THINT #### [facility] [address] [place] [address] Dr. Jessica Mosqueda Bilirubin [Mass/Vol] 0.3 mg/dL Normal 0.2-1.0 [facility] Comment on above: Performed By: #### P THINT #### [facility] [address] [place] [address] Dr. Jessica Mosqueda Calcium [Mass/Vol] 9.2 mg/dL Normal 8.5-10.1 [facility] Comment on above: Performed By: #### P THINT #### [facility] [address] [address] [address] Jessica Mosqueda Chloride [Moles/Vol] 105 mmol/L Normal 98-107 [facility] Comment on above: Performed By: #### P THINT #### [facility] [address] [place] [address] Dr. Jessica Mosqueda CO2 [Moles/Vol] 26.5 mmol/L Normal 21.0-32.0 [facility] Comment on above: Performed By: #### P THINT #### [facility] [address] [place] [address] Dr. Jessica Mosqueda Creatinine [Mass/Vol] 2.06 mg/dL Critically high 0.55-1.02 [facility] Comment on above: Performed By: #### P THINT #### [facility] [address] [place] [address] Dr. Jessica Mosqueda EGFR-AF KOSOVAN 32 mL/min/1.73m2 Critically low >=60 [facility] Comment on above: Performed By: #### P THINT #### [facility] [address] [place] [address] Dr. Jessica Mosqueda EGFR-NON AF KOSOVAN 27 mL/min/1.73m2 Critically low >=60 [facility] Comment on above: Performed By: #### P THINT #### [facility] [address] [place] [address] Dr. Jessica Mosqueda Globulin (S) [Mass/Vol] 3.5 g/dL Normal [facility] Comment on above: Performed By: #### P THINT #### [facility] [address] [place] [address] Dr. Jessica Mosqueda Glucose [Mass/Vol] 75 mg/dL Normal 74-106 [facility] Comment on above: Performed By: #### P THINT #### [facility] [address] [place] [address] Dr. Jessica Mosqueda Potassium [Moles/Vol] 4.4 mmol/L Normal 3.5-5.1 [facility] Comment on above: Performed By: #### P THINT #### [facility] [address] [place] [address] Dr. Jessica Mosqueda Protein [Mass/Vol] 7.4 g/dL Normal 6.4-8.2 [facility] Comment on above: Performed By: #### P THINT #### [facility] [address] [place] [address] Dr. Jessica Mosqueda Sodium [Moles/Vol] 141 mmol/L Normal 136-145 [facility] Comment on above: Performed By: #### P THINT #### [facility] [address] [place] [address] Dr. Jessica Mosqueda Urea nitrogen [Mass/Vol] 37.0 mg/dL Critically high 7.0-18.0 [facility] Comment on above: Performed By: #### P THINT #### [facility] [address] [place] [address] Dr. Jessica Mosqeuda Urea nitrogen/Creatinine [Mass ratio] 18.0 mg/mg Normal [facility] Comment on above: Performed By: #### P THINT #### [facility] [address] [place] [address] Dr. Jessica Mosqueda PROF 14(COMP METB)on 022 Albumin [Mass/Vol] 3.9 g/dL Normal 3.4-5.0 [facility] Comment on above: Performed By: #### C MP #### [facility] [address] [place] [address] Dr. Jessica Mosqueda Albumin/Globulin [Mass ratio] 1.2 {ratio} Normal [facility] Comment on above: Performed By: #### C MP #### [facility] [address] [place] [address] Dr. Jessica Mosqueda ALP [Catalytic activity/Vol] 32 U/L Critically low 46-116 [facility] Comment on above: Performed By: #### C MP #### [facility] [address] [address] [address] Jessica Mosqueda ALT [Catalytic activity/Vol] 12 U/L Critically low 14-59 [facility] Comment on above: Performed By: #### C MP #### [facility] [address] [address] [address] Jessica Mosqueda Anion gap [Moles/Vol] 13.6 mmol/L Normal Th [facility] Comment on above: Performed By: #### C MP #### [facility] [address] [place] [address] Dr. Jessica Mosqueda AST [Catalytic activity/Vol] 15 U/L Normal 15-37 [facility] Comment on above: Performed By: #### C MP #### [facility] [address] [place] [address] Dr. Jessica Mosqueda Bilirubin [Mass/Vol] 0.2 mg/dL Normal 0.2-1.0 [facility] Comment on above: Performed By: #### C MP #### [facility] [address] [place] [address] Dr. Jessica Mosqueda Calcium [Mass/Vol] 9.2 mg/dL Normal 8.5-10.1 [facility] Comment on above: Performed By: #### C MP #### [facility] [address] [address] [address] Jessica Mosqueda Chloride [Moles/Vol] 105 mmol/L Normal 98-107 [facility] Comment on above: Performed By: #### C MP #### [facility] [address] [address] [address] Jessica Mosqueda CO2 [Moles/Vol] 26.0 mmol/L Normal 21.0-32.0 [facility] Comment on above: Performed By: #### C MP #### [facility] [address] [address] [address] Jessica Mosqueda Creatinine [Mass/Vol] 1.98 mg/dL Critically high 0.55-1.02 [facility] Comment on above: Performed By: #### C MP #### [facility] [address] [address] [address] Jessica Mosqueda EGFR-AF KOSOVAN 34 mL/min/1.73m2 Critically low >=60 [facility] Comment on above: Performed By: #### C MP #### [facility] [address] [address] [address] Jessica Mosqueda EGFR-NON AF KOSOVAN 28 mL/min/1.73m2 Critically low >=60 [facility] Comment on above: Performed By: #### C MP #### [facility] [address] [place] [address] Dr. Jessica Mosqueda Globulin (S) [Mass/Vol] 3.3 g/dL Normal [facility] Comment on above: Performed By: #### C MP #### [facility] [address] [address] [address] Jessica Mosqueda Glucose [Mass/Vol] 93 mg/dL Normal 74-106 [facility] Comment on above: Performed By: #### C MP #### [facility] [address] [address] [address] Jessica Mosqueda Potassium [Moles/Vol] 4.6 mmol/L Normal 3.5-5.1 [facility] Comment on above: Performed By: #### C MP #### [facility] [address] [address] [address] Jessica Mosqueda Protein [Mass/Vol] 7.2 g/dL Normal 6.4-8.2 [facility] Comment on above: Performed By: #### C MP #### [facility] [address] [address] [address] Jessica Mosqueda Sodium [Moles/Vol] 140 mmol/L Normal 136-145 [facility] Comment on above: Performed By: #### C MP #### [facility] [address] [address] [address] Jessica Mosqueda Urea nitrogen [Mass/Vol] 23.0 mg/dL Critically high 7.0-18.0 [facility] Comment on above: Performed By: #### C MP #### [facility] [address] [place] [address] Dr. Jessica Mosqueda Urea nitrogen/Creatinine [Mass ratio] 11.6 mg/mg Normal [facility] Comment on above: Performed By: #### C MP #### [facility] [address] [place] [address] Dr. Jessica Mosqueda PTH INTACTon 03-23-2022 PTH, Intact 71 pg/mL Critically high 15-65 [facility] Comment on above: Performed By: #### P THINT #### [facility] [address] [place] [address] Dr. Jessica Mosqueda HEMOGRAM AND PLATELon 2021 Hematocrit (Bld) [Volume fraction] 37.8 % Normal 36.0-48.0 [facility] Comment on above: Performed By: #### H H #### [facility] [address] [place] [address] Dr. Jessica Mosqueda Hemoglobin (Bld) [Mass/Vol] 12.3 g/dL Normal 12.0-16.0 [facility] Comment on above: Performed By: #### H H #### [facility] [address] [place] [address] Dr. Jessica Mosqueda MCH (RBC) [Entitic mass] 29.6 pg Normal 26.7-34.0 [facility] Comment on above: Performed By: #### H H #### [facility] [address] [place] [address] Dr. Jessica Mosqueda MCHC (RBC) [Mass/Vol] 32.5 g/dL Normal 29.9-35.2 [facility] Comment on above: Performed By: #### H H #### [facility] [address] [place] [address] Dr. Jessica Mosqueda MCV (RBC) [Entitic vol] 90.9 fL Normal 81.0-99.0 [facility] Comment on above: Performed By: #### H H #### [facility] [address] [place] [address] Dr. Jessica Mosqueda PLT 158 103/ul Normal 150-[address] [facility] Comment on above: Performed By: #### H H #### [facility] [address] [place] [address] Dr. Jessica Mosqueda RBC 4.16 106/ul Critically low 4.20-5.40 [facility] Comment on above: Performed By: #### H H #### [facility] [address] [place] [address] Dr. Jessica Mosqueda WBC 10.3 103/ul Normal 4.0-11.0 [facility] Comment on above: Performed By: #### H H #### [facility] [address] [place] [address] Dr. Jessica Mosqueda PHOSPHORUSon 03-22-2022 Phosphate [Mass/Vol] 4.7 mg/dL Normal 2.6-4.7 [facility] Comment on above: Performed By: #### L IPID, CMP, TSH, T7 #### [facility] [address] [place] [address] Dr. Jessica Mosqueda PROF 14(COMP METB)on 022 Albumin [Mass/Vol] 4.1 g/dL Normal 3.4-5.0 [facility] Comment on above: Performed By: #### L IPID, CMP, TSH, T7 #### [facility] [address] [place] [address] Dr. Jessica Mosqueda Albumin/Globulin [Mass ratio] 1.2 {ratio} Normal [facility] Comment on above: Performed By: #### L IPID, CMP, TSH, T7 #### [facility] [address] [place] [address] Dr. Jessica Mosqueda ALP [Catalytic activity/Vol] 36 U/L Critically low 46-[address] [facility] Comment on above: Performed By: #### L IPID, CMP, TSH, T7 #### [facility] [address] [place] [address] Dr. Jessica Mosqueda ALT [Catalytic activity/Vol] 16 U/L Normal 14-[address] [facility] Comment on above: Performed By: #### L IPID, CMP, TSH, T7 #### [facility] [address] [address] [address] Jessica Mosqueda Anion gap [Moles/Vol] 15.4 mmol/L Normal Th [facility] Comment on above: Performed By: #### L IPID, CMP, TSH, T7 #### [facility] [address] [address] [address] Jessica Mosqueda AST [Catalytic activity/Vol] 12 U/L Critically low 15-37 [facility] Comment on above: Performed By: #### L IPID, CMP, TSH, T7 #### [facility] [address] [address] [address] Jessica Mosqueda Bilirubin [Mass/Vol] 0.6 mg/dL Normal 0.2-1.0 [facility] Comment on above: Performed By: #### L IPID, CMP, TSH, T7 #### [facility] [address] [place] [address] Dr. Jessica Mosqueda Calcium [Mass/Vol] 9.3 mg/dL Normal 8.5-10.1 [facility] Comment on above: Performed By: #### L IPID, CMP, TSH, T7 #### [facility] [address] [address] [address] Jessica Mosqueda Chloride [Moles/Vol] 103 mmol/L Normal 98-107 [facility] Comment on above: Performed By: #### L IPID, CMP, TSH, T7 #### [facility] [address] [address] [address] Jessica Mosqueda CO2 [Moles/Vol] 24.4 mmol/L Normal 21.0-32.0 [facility] Comment on above: Performed By: #### L IPID, CMP, TSH, T7 #### [facility] [address] [place] [address] Dr. Jessica Mosqueda Creatinine [Mass/Vol] 2.04 mg/dL Critically high 0.55-1.02 [facility] Comment on above: Performed By: #### L IPID, CMP, TSH, T7 #### [facility] [address] [address] [address] Jessica Mosqueda EGFR-AF KOSOVAN 33 mL/min/1.73m2 Critically low >=60 [facility] Comment on above: Performed By: #### L IPID, CMP, TSH, T7 #### [facility] [address] [address] [address] Jessica Mosqueda EGFR-NON AF KOSOVAN 27 mL/min/1.73m2 Critically low >=[address] [facility] Comment on above: Performed By: #### L IPID, CMP, TSH, T7 #### [facility] [address] [address] [address] Jessica Mosqueda Globulin (S) [Mass/Vol] 3.3 g/dL Normal [facility] Comment on above: Performed By: #### L IPID, CMP, TSH, T7 #### [facility] [address] [place] [address] Dr. Jessica Mosqueda Glucose [Mass/Vol] 84 mg/dL Normal 74-106 [facility] Comment on above: Performed By: #### L IPID, CMP, TSH, T7 #### [facility] [address] [address] [address] Jessica Mosqueda Potassium [Moles/Vol] 3.8 mmol/L Normal 3.5-5.1 [facility] Comment on above: Performed By: #### L IPID, CMP, TSH, T7 #### [facility] [address] [address] [address] Jessica Mosqueda Protein [Mass/Vol] 7.4 g/dL Normal 6.4-8.2 [facility] Comment on above: Performed By: #### L IPID, CMP, TSH, T7 #### [facility] [address] [address] [address] Jessica Mosqueda Sodium [Moles/Vol] 139 mmol/L Normal 136-145 [facility] Comment on above: Performed By: #### L IPID, CMP, TSH, T7 #### [facility] [address] [address] [address] Jessica Mosqueda Urea nitrogen [Mass/Vol] 30.0 mg/dL Critically high 7.0-18.0 [facility] Comment on above: Performed By: #### L IPID, CMP, TSH, T7 #### [facility] [address] [address] [address] Jessica Mosqueda Urea nitrogen/Creatinine [Mass ratio] 14.7 mg/mg Normal [facility] Comment on above: Performed By: #### L IPID, CMP, TSH, T7 #### [facility] [address] [address] [address] Jessica Mosqueda UA RANDOMon 03-22-2022 Bilirubin Ql (U) Negative Normal NEGATIVE [facility] Comment on above: Performed By: #### L IPID, CMP, TSH, T7 #### [facility] [address] [place] [address] Dr. Jessica Mosqueda Clarity (U) CLEAR Normal CLEAR [facility] Comment on above: Performed By: #### L IPID, CMP, TSH, T7 #### [facility] [address] [address] [address] Jessica Mosqueda Color (U) LT. YELLOW Normal YELLOW [facility] Comment on above: Performed By: #### L IPID, CMP, TSH, T7 #### [facility] [address] [place] [address] Dr. Jessica Mosqueda Glucose Ql (U) Negative Normal NEGATIVE [facility] Comment on above: Performed By: #### L IPID, CMP, TSH, T7 #### [facility] [address] [address] [address] Jessica Mosqueda Hemoglobin Ql (U) Negative Normal NEGATIVE [facility] Comment on above: Performed By: #### L IPID, CMP, TSH, T7 #### [facility] [address] [place] [address] Dr. Jessica Mosqueda Ketones Ql (U) Negative Normal NEGATIVE [facility] Comment on above: Performed By: #### L IPID, CMP, TSH, T7 #### [facility] [address] [place] [address] Dr. Jessica Mosqueda LEUKOCYTES Negative Normal NEGATIVE [facility] Comment on above: Performed By: #### L IPID, CMP, TSH, T7 #### [facility] [address] [address] [address] Jessica Mosqueda Nitrite Ql (U) Negative Normal NEGATIVE [facility] Comment on above: Performed By: #### L IPID, CMP, TSH, T7 #### [facility] [address] [address] [address] Jessica Mosqueda pH (U) 5.5 [pH] Normal 5-9 [facility] Comment on above: Performed By: #### L IPID, CMP, TSH, T7 #### [facility] [address] [address] [address] Jessica Mosqueda SPEC GRAVITY 1.005 Normal 1.005-<=1.025 [facility] Comment on above: Performed By: #### L IPID, CMP, TSH, T7 #### [facility] [address] [place] [address] Dr. Jessica Mosqueda UA PROTEIN Negative Normal NEGATIVE/ TRACE [facility] Comment on above: Performed By: #### L IPID, CMP, TSH, T7 #### [facility] [address] [place] [address] Dr. Jessica Mosqueda Urobilinogen Qn (U) 0.2 {Fran'U}/dL Normal 0.2 - 1. 0 [facility] Comment on above: Performed By: #### L IPID, CMP, TSH, T7 #### [facility] [address] [place] [address] Dr. Jessica Mosqueda URINE T PROTEIN CREAT RATIOo n 03-22-2022 UR TOTAL PROTEIN <6.0 Normal <=12.0 [facility] Comment on above: Performed By: #### L IPID, CMP, TSH, T7 #### [facility] [address] [place] [address] Dr. Jessica Mosqueda URINE CREAT 23.46 mg/dL Normal 20.00-300.[address] [facility] Comment on above: Performed By: #### L IPID, CMP, TSH, T7 #### [facility] [address] [place] [address] Dr. Jessica Mosqueda PROF 14(COMP METB)on 022 Albumin [Mass/Vol] 3.8 g/dL Normal 3.4-5.0 [facility] Comment on above: Performed By: #### L IPID, CMP, TSH, T7 #### [facility] [address] [place] [address] Dr. Jessica Mosqueda Albumin/Globulin [Mass ratio] 1.3 {ratio} Normal [facility] Comment on above: Performed By: #### L IPID, CMP, TSH, T7 #### [facility] [address] [place] [address] Dr. Jessica Mosqueda ALP [Catalytic activity/Vol] 35 U/L Critically low 46-116 [facility] Comment on above: Performed By: #### L IPID, CMP, TSH, T7 #### [facility] [address] [place] [address] Dr. Jessica Mosqueda ALT [Catalytic activity/Vol] 17 U/L Normal 14-59 [facility] Comment on above: Performed By: #### L IPID, CMP, TSH, T7 #### [facility] [address] [place] [address] Dr. Jessica Mosqueda Anion gap [Moles/Vol] 12.2 mmol/L Normal [facility] Comment on above: Performed By: #### L IPID, CMP, TSH, T7 #### [facility] [address] [place] [address] Dr. Jessica Mosqueda AST [Catalytic activity/Vol] 13 U/L Critically low 15-37 [facility] Comment on above: Performed By: #### L IPID, CMP, TSH, T7 #### [facility] [address] [place] [address] Dr. Jessica Mosqueda Bilirubin [Mass/Vol] 0.4 mg/dL Normal 0.2-1.0 [facility] Comment on above: Performed By: #### L IPID, CMP, TSH, T7 #### [facility] [address] [place] [address] Dr. Jessica Mosqueda Calcium [Mass/Vol] 8.6 mg/dL Normal 8.5-10.1 [facility] Comment on above: Performed By: #### L IPID, CMP, TSH, T7 #### [facility] [address] [address] [address] Jessica Mosqueda Chloride [Moles/Vol] 106 mmol/L Normal 98-[address] [facility] Comment on above: Performed By: #### L IPID, CMP, TSH, T7 #### [facility] [address] [address] [address] Jessica Mosqueda CO2 [Moles/Vol] 26.1 mmol/L Normal 21.0-32.0 [facility] Comment on above: Performed By: #### L IPID, CMP, TSH, T7 #### [facility] [address] [place] [address] Dr. Jessica Mosqueda Creatinine [Mass/Vol] 1.76 mg/dL Critically high 0.55-1.02 [facility] Comment on above: Performed By: #### L IPID, CMP, TSH, T7 #### [facility] [address] [address] [address] Jessica Mosqueda EGFR-AF KOSOVAN 39 mL/min/1.73m2 Critically low >=[address] [facility] Comment on above: Performed By: #### L IPID, CMP, TSH, T7 #### [facility] [address] [place] [address] Dr. Jessica Mosqueda EGFR-NON AF KOSOVAN 32 mL/min/1.73m2 Critically low >=[address] [facility] Comment on above: Performed By: #### L IPID, CMP, TSH, T7 #### [facility] [address] [address] [address] Jessica Mosqueda Globulin (S) [Mass/Vol] 3.0 g/dL Normal [facility] Comment on above: Performed By: #### L IPID, CMP, TSH, T7 #### [facility] [address] [address] [address] Jessica Mosqueda Glucose [Mass/Vol] 81 mg/dL Normal 74-106 [facility] Comment on above: Performed By: #### L IPID, CMP, TSH, T7 #### [facility] [address] [address] [address] Jessica Mosqueda Potassium [Moles/Vol] 4.3 mmol/L Normal 3.5-5.1 [facility] Comment on above: Performed By: #### L IPID, CMP, TSH, T7 #### [facility] [address] [address] [address] Jessica Mosqueda Protein [Mass/Vol] 6.8 g/dL Normal 6.4-8.2 [facility] Comment on above: Performed By: #### L IPID, CMP, TSH, T7 #### [facility] [address] [place] [address] Dr. Jessica Mosqueda Sodium [Moles/Vol] 140 mmol/L Normal 136-145 [facility] Comment on above: Performed By: #### L IPID, CMP, TSH, T7 #### [facility] [address] [address] [address] Jessica Mosqueda Urea nitrogen [Mass/Vol] 20.0 mg/dL Critically high 7.0-18.0 [facility] Comment on above: Performed By: #### L IPID, CMP, TSH, T7 #### [facility] [address] [place] [address] Dr. Jessica Mosqueda Urea nitrogen/Creatinine [Mass ratio] 11.4 mg/mg Normal [facility] Comment on above: Performed By: #### L IPID, CMP, TSH, T7 #### [facility] [address] [place] [address] Dr. Jessica Mosqueda PROF 14(COMP METB)on 022 Albumin [Mass/Vol] 4.0 g/dL Normal 3.4-5.0 [facility] Comment on above: Performed By: #### L IPID, CMP, TSH, T7 #### [facility] [address] [place] [address] Dr. Jessica Mosqueda Albumin/Globulin [Mass ratio] 1.2 {ratio} Normal [facility] Comment on above: Performed By: #### L IPID, CMP, TSH, T7 #### [facility] [address] [address] [address] Jessica Mosqueda ALP [Catalytic activity/Vol] 31 U/L Critically low 46-116 [facility] Comment on above: Performed By: #### L IPID, CMP, TSH, T7 #### [facility] [address] [place] [address] Dr. Jessica Mosqueda ALT [Catalytic activity/Vol] 19 U/L Normal 14-59 [facility] Comment on above: Performed By: #### L IPID, CMP, TSH, T7 #### [facility] [address] [place] [address] Dr. Jessica Mosqueda Anion gap [Moles/Vol] 13.7 mmol/L Normal [facility] Comment on above: Performed By: #### L IPID, CMP, TSH, T7 #### [facility] [address] [place] [address] Dr. Jessica Mosqueda AST [Catalytic activity/Vol] 12 U/L Critically low 15-37 [facility] Comment on above: Performed By: #### L IPID, CMP, TSH, T7 #### [facility] [address] [place] [address] Dr. Jessica Mosqueda Bilirubin [Mass/Vol] 0.3 mg/dL Normal 0.2-1.0 [facility] Comment on above: Performed By: #### L IPID, CMP, TSH, T7 #### [facility] [address] [place] [address] Dr. Jessica Mosqueda Calcium [Mass/Vol] 9.3 mg/dL Normal 8.5-10.1 [facility] Comment on above: Performed By: #### L IPID, CMP, TSH, T7 #### [facility] [address] [place] [address] Dr. Jessica Mosqueda Chloride [Moles/Vol] 106 mmol/L Normal 98-107 [facility] Comment on above: Performed By: #### L IPID, CMP, TSH, T7 #### [facility] [address] [place] [address] Dr. Jessica Mosqueda CO2 [Moles/Vol] 25.4 mmol/L Normal 21.0-32.0 [facility] Comment on above: Performed By: #### L IPID, CMP, TSH, T7 #### [facility] [address] [address] [address] Jessica Mosqueda Creatinine [Mass/Vol] 1.84 mg/dL Critically high 0.55-1.02 [facility] Comment on above: Performed By: #### L IPID, CMP, TSH, T7 #### [facility] [address] [address] [address] Jessica Mosqueda EGFR-AF KOSOVAN 37 mL/min/1.73m2 Critically low >=60 [facility] Comment on above: Performed By: #### L IPID, CMP, TSH, T7 #### [facility] [address] [address] [address] Jessica Mosqueda EGFR-NON AF KOSOVAN 30 mL/min/1.73m2 Critically low >=60 [facility] Comment on above: Performed By: #### L IPID, CMP, TSH, T7 #### [facility] [address] [address] [address] Jessica Mosqueda Globulin (S) [Mass/Vol] 3.4 g/dL Normal [facility] Comment on above: Performed By: #### L IPID, CMP, TSH, T7 #### [facility] [address] [address] [address] Jessica Mosqueda Glucose [Mass/Vol] 99 mg/dL Normal 74-106 [facility] Comment on above: Performed By: #### L IPID, CMP, TSH, T7 #### [facility] [address] [address] [address] Jessica Mosqueda Potassium [Moles/Vol] 4.1 mmol/L Normal 3.5-5.1 [facility] Comment on above: Performed By: #### L IPID, CMP, TSH, T7 #### [facility] [address] [address] [address] Jessica Mosqueda Protein [Mass/Vol] 7.4 g/dL Normal 6.4-8.2 [facility] Comment on above: Performed By: #### L IPID, CMP, TSH, T7 #### [facility] [address] [address] [address] Jessica Mosqueda Sodium [Moles/Vol] 141 mmol/L Normal 136-145 [facility] Comment on above: Performed By: #### L IPID, CMP, TSH, T7 #### [facility] [address] [address] [address] Jessica Mosqueda Urea nitrogen [Mass/Vol] 25.0 mg/dL Critically high 7.0-18.0 [facility] Comment on above: Performed By: #### L IPID, CMP, TSH, T7 #### [facility] [address] [address] [address] Jessica Mosqueda Urea nitrogen/Creatinine [Mass ratio] 13.6 mg/mg Normal [facility] Comment on above: Performed By: #### L IPID, CMP, TSH, T7 #### [facility] [address] [address] [address] Jessica Mosqueda CNOVSPon 09-04-2019 CNOVS Visit (SP) Office ([place]) DELMYISABEL ([id number]) 1980 F Date Time Provider Department 09/04/19 3:45 PM LUIS ANGEL HALL During your visit today, we recorded the following information about you: Temperature Pulse Respiration Blood pressure 97.6 degrees 66/minute 18/minute 115/66 Weight Height 82.2 kg 1.676 m Luis Angel Hall DO 09/06/2019 9:21 AM Signed PATIENT NAME: Isabel Rivera REFERRING PHYSICIAN: Timothy Mills MD [address] [place] [address] [address] [facility] [address] PRIMARY CARE PHYSICIAN: Maren James MD CHIEF [...] did not have a lupus anticoagulant. Protein CLINICAL INFORMATICS STRATEGIST were within expected ranges. She had negative [...] 2017. Right posterior tibial vein and associated business writer veins. Follows with Dr. Bateman, vascular. She does exercise slightly 3 days a week and works a [employer] in [facility] [employer]. Medications as of September 2017 included only [...] questions satisfactorily.. Ankit Hall D.O. Medical Oncologist [place], [place] Cc. Dr. Bateman. Referring Provider: LUIS ANGEL HALL [[id number]] Allergies As of Date: 09/04/2019 Noted Allergy [...] LUIS ANGEL HALL DO on 09/06/19 Normal [facility] PROGRESSon 09-04-2019 PROGRESS HNO ID: [id number] Author: Luis Angel Hall Service: ? Author Type: Physician Type: Progress Notes Filed: 09/06/2019 9:21 AM Note Text: PATIENT NAME: Isabel Rivera REFERRING PHYSICIAN: Timothy Mills MD [address] [place] [address] [place] [address] PRIMARY CARE PHYSICIAN: Maren James MD CHIEF [...] did not have a lupus anticoagulant. Protein CLINICAL INFORMATICS STRATEGIST were within expected ranges. She had negative [...] 2017. Right posterior tibial vein and associated business writer veins. Follows with Dr. Bateman, vascular. She does exercise slightly 3 days a week and works a [employer] in [facility]. Medications as of September 2017 included only [...] questions satisfactorily.. Ankit Hall D.O. Medical Oncologist [facility] [place], [place] Cc. Dr. Bateman. [facility] CNOVSPon 07-30-2019 CNOVS Visit (SP) Office ([place]) PATRICIAISABEL KENT ([id number]) 1980 F Date Time Provider Department 07/30/19 3:45 PM LUIS ANGEL HALL HEMACL During your visit today, we recorded the following information about you: Temperature Pulse Respiration Blood pressure 98.4 degrees 61/minute 16/minute 107/69 Weight Height 80.6 kg 1.676 m Luis Angel Hall DO 08/02/2019 11:50 AM Signed PATIENT NAME: Isabel Rivera REFERRING PHYSICIAN: Timothy Mills MD [address] [place] [address] [place] [address] PRIMARY CARE PHYSICIAN: Maren James MD CHIEF [...] TIBC - CBC + DIFF (FOR REMOTE [facility] USE) - BASIC METABOLIC PNL [...] 2017. Right posterior tibial vein and associated business writer veins. Follows with Dr. Bateman, vascular. She does exercise slightly 3 days a week and works a [employer] in [facility]. Medications as of September 2017 included only [...] questions satisfactorily.. Ankit Hall D.O. Medical Oncologist [facility] [place], [place] Cc. Dr. Bateman. Referring Provider: TIMOTHY MILLS [[id number]] Allergies As of Date: 07/30/2019 (Not on File) Date Reviewed: 07/30/2019 Reviewed by: Lavonne Borrego - Fully Assessed Reason for Visit: Consult [173] Primary Visit Diagnosis:Acute deep vein thrombosis (DVT) of proximal vein of both lower extremities (HCC) [I82.4Y3] Order(s):US LEG VEIN DVT [facility] [[id number]] Order #: [id number] FUTURE FACTOR V LEIDEN/PCR [SQFVLEID] Order #: [id number] FUTURE PROTHROMBIN GENE PCR [SQPTGENE] Order #: [id number] FUTURE PROTEIN C FUNCT [SQPRCFUN] Order #: [id number] FUTURE PROTEIN S CLOTTABLE [SQPRSCLT] Order #: [id number] FUTURE ANTITHROMBIN ACTIVITY [NSCK7LCB] Order #: [id number] FUTURE LUPUS ANTICOAG PL [SQLUPUSP] Order #: [id number] FUTURE B 2 GPI IGG AND IGM [XFC2WSUA] Order #: [id number] FUTURE ANTI-CARDIOLIPIN AB [SQCARDIO] Order #: [id number] FUTURE HOMOCYSTEINE [SQHOMCYS] Order #: [id number] FUTURE FERRITIN BLD [SQFERR] Order #: [id number] FUTURE IRON + TIBC [SQIRON] Order #: [id number] FUTURE CBC + DIFF (FOR REMOTE [facility] USE) [SQRCBCDF] Order #: [id number] FUTURE BASIC METABOLIC PNL [SQBMP] Order #: [id number] FUTURE HEPATIC FUNCTION PNL [SQHFP] Order #: [id number] FUTURE Disposition: Return labs today. f/u 4 to 6 wks. BL LE please. . Follow-up and Disposition History Recorded Prescriptions as of 07/30/2019 Sig: RIVAROXABAN 20 MG TABLET Take 20 mg by mouth once abdiel* CETIRIZINE 10 MG TABLET Take 10 mg by mouth once abdiel* IRON ORAL Take 65 mg by mouth once abdiel* Problem List As Of Date: 07/30/2019 (None) Encounter Status:Closed by LUIS ANGEL HALL DO on 08/02/19 [facility] PROGRESSon 07-30-2019 PROGRESS HNO ID: [id number] Author: Luis Angel Hall Service: ? Author Type: Physician Type: Progress Notes Filed: 08/02/2019 11:50 AM Note Text: PATIENT NAME: Isabel Rivera REFERRING PHYSICIAN: Timothy Mills MD [address] [place] [address] [facility] [address] PRIMARY CARE PHYSICIAN: Maren James MD CHIEF [...] TIBC - CBC + DIFF (FOR REMOTE [facility] USE) - BASIC METABOLIC PNL [...] 2017. Right posterior tibial vein and associated business writer veins. Follows with Dr. Bateman, vascular. She does exercise slightly 3 days a week and works a [employer] in [facility] [employer]. Medications as of September 2017 included only [...] questions satisfactorily.. Ankit Hall D.O. Medical Oncologist [place], [place] Cc. Dr. Bateman. Normal [facility] Social History Date Type Detail Facility Start: 10-11-2023 End: 10-11-2023 Tobacco smoking status NHIS Never smoked tobacco (finding) [facility] Start: 1980 Sex Assigned At Female F [facility] Unknown if ever smoked [facility] Other Sex Assigned At Sex Assigned At Bir th [facility] Other Vital Signs Date Time Vital Sign Value Performing Clinician Facility 01-10-2024 15:58-0400 Body height 167.64 cm [facility] 01-10-2024 15:58-0400 Body mass index (BMI) [Ratio] 33.5 kg/m2 [facility] 01-10-2024 15:58-0400 Body temperature 97.2 [degF] [facility] 01-10-2024 15:58-0400 Body weight 94.34 kg [facility] 01-10-2024 15:58-0400 Diastolic blood pressure 84 mm[Hg] [facility] 01-10-2024 15:58-0400 Heart rate 68 /min [facility] 01-10-2024 15:58-0400 Respiratory rate 16 /min [facility] 01-10-2024 15:58-0400 SaO2% (BldA) [Mass fraction] 100 % [facility] 01-10-2024 15:58-0400 Systolic blood pressure 130 mm[Hg] [facility] 10-11-2023 15:51-0500 Body height 167.64 cm [facility] 10-11-2023 15:51-0500 Body mass index (BMI) [Ratio] 33.6 kg/m2 [facility] 10-11-2023 15:51-0500 Body temperature 97.9 [degF] [facility] 10-11-2023 15:51-0500 Body weight 94.57 kg [facility] 10-11-2023 15:51-0500 Diastolic blood pressure 81 mm[Hg] [facility] 02-22-2024 15:51-0500 Heart rate 72 /min [facility] 10-11-2023 15:51-0500 Respiratory rate 16 /min [facility] 10-11-2023 15:51-0500 SaO2% (BldA) [Mass fraction] 100 % [facility] 10-11-2023 15:51-0500 Systolic blood pressure 127 mm[Hg] [facility] 06-28-2023 16:00-0500 Body height 172.72 cm Maeve Sahnidank Other [facility] Other 06-28-2023 16:00-0500 Body mass index (BMI) [Ratio] 31.35 kg/m2 Maeve Tiffanie Other [facility] Other 06-28-2023 16:00-0500 Body temperature 97.3 [degF] Maeve Tiffanie Other [facility] Other 06-28-2023 16:00-0500 Body weight 93.53 kg Maeve Sahnidank Other [facility] Other 06-28-2023 16:00-0500 Diastolic blood pressure 87 mm[Hg] Maeve Tiffanie Other [facility] Other 06-28-2023 16:00-0500 Respiratory rate 18 /min Maeve Tiffanie Other [facility] Other 06-28-2023 16:00-0500 SaO2% (BldA) [Mass fraction] 98 % Maeve Sahnidank Other [facility] Other 06-28-2023 16:00-0500 Systolic blood pressure 141 mm[Hg] Maeve Tiffanie Other [facility] Other 04-05-2023 16:00-0400 Body height 172.72 cm Maeve Moreno Other [facility] Other 04-05-2023 16:00-0400 Body mass index (BMI) [Ratio] 31.23 kg/m2 Maeve Moreno Other [facility] Other 04-05-2023 16:00-0400 Body temperature 96.4 [degF] Maeve Moreno Other [facility] Other 04-05-2023 16:00-0400 Body weight 93.17 kg Maeve Moreno Other [facility] Other 04-05-2023 16:00-0400 Diastolic blood pressure 85 mm[Hg] Maeve Moreno Other [facility] Other 04-05-2023 16:00-0400 Respiratory rate 18 /min Maeve Moreno Other [facility] Other 04-05-2023 16:00-0400 SaO2% (BldA) [Mass fraction] 99 % Maeve Moreno Other [facility] Other 04-05-2023 16:00-0400 Systolic blood pressure 134 mm[Hg] Maeve Moreno Other [facility] Other 12-21-2022 17:00-0400 Body height 172.72 cm Maeve Moreno Other [facility] Other 12-21-2022 17:00-0400 Body mass index (BMI) [Ratio] 31.14 kg/m2 Maeve Moreno Other [facility] Other 12-21-2022 17:00-0400 Body temperature 96.5 [degF] Maeve Moreno Other [facility] Other 12-21-2022 17:00-0400 Body weight 92.9 kg Maeve Moreno Other [facility] Other 12-21-2022 17:00-0400 Diastolic blood pressure 84 mm[Hg] Maeve Moreno Other [facility] Other 12-21-2022 17:00-0400 Respiratory rate 18 /min Maeve Moreno Other [facility] Other 12-21-2022 17:00-0400 SaO2% (BldA) [Mass fraction] 98 % Maeve Moreno Other [facility] Other 12-21-2022 17:00-0400 Systolic blood pressure 138 mm[Hg] Maeve Moreno Other [facility] Other 09-28-2022 17:00-0500 Body height 172.72 cm Maeve Moreno Other [facility] Other 09-28-2022 17:00-0500 Body mass index (BMI) [Ratio] 31.11 kg/m2 Maeve Moreno Other [facility] Other 09-28-2022 17:00-0500 Body temperature 98.2 [degF] Maeve Moreno Other [facility] Other 09-28-2022 17:00-0500 Body weight 92.81 kg Maeve Moreno Other [facility] Other 09-28-2022 17:00-0500 Diastolic blood pressure 94 mm[Hg] Maeve Moreno Other [facility] Other 09-28-2022 17:00-0500 Respiratory rate 18 /min Maeve Moreno Other [facility] Other 09-28-2022 17:00-0500 SaO2% (BldA) [Mass fraction] 98 % Maeve Moreno Other [facility] Other 09-28-2022 17:00-0500 Systolic blood pressure 144 mm[Hg] Maeve Moreno Other [facility] Other 07-06-2022 17:00-0500 Body height 172.72 cm Maeve Moreno Other [facility] Other 07-06-2022 17:00-0500 Body mass index (BMI) [Ratio] 30.32 kg/m2 Maeve Moreno Other [facility] Other 07-06-2022 17:00-0500 Body temperature 97.1 [degF] Maeve Moreno Other [facility] Other 07-06-2022 17:00-0500 Body weight 90.45 kg Maeve Moreno Other [facility] Other 07-06-2022 17:00-0500 Diastolic blood pressure 87 mm[Hg] Maeve Moreno Other [facility] Other 07-06-2022 17:00-0500 Respiratory rate 18 /min Maeve Moreno Other [facility] Other 07-06-2022 17:00-0500 SaO2% (BldA) [Mass fraction] 99 % Maeve Moreno Other [facility] Other 07-06-2022 17:00-0500 Systolic blood pressure 128 mm[Hg] Maeve Moreno Other [facility] Other 03-23-2022 16:40-0400 Body height 172.72 cm Maeve Moreno Other [facility] Other 03-23-2022 16:40-0400 Body mass index (BMI) [Ratio] 30.47 kg/m2 Maeve Moreno Other [facility] Other 03-23-2022 16:40-0400 Body temperature 96.9 [degF] Maeve Moreno Other [facility] Other 03-23-2022 16:40-0400 Body weight 90.9 kg Maeve Moreno Other [facility] Other 03-23-2022 16:40-0400 Diastolic blood pressure 80 mm[Hg] Maeve Moreno Other [facility] Other 03-23-2022 16:40-0400 Respiratory rate 18 /min Maeve Moreno Other [facility] Other 03-23-2022 16:40-0400 SaO2% (BldA) [Mass fraction] 99 % Maeve Moreno Other [facility] Other 03-23-2022 16:40-0400 Systolic blood pressure 116 mm[Hg] Maeve Moreno Other [facility] Other 08-09-2021 17:00-0500 Body height 172.72 cm Maeve Moreno Other [facility] Other 08-09-2021 17:00-0500 Body mass index (BMI) [Ratio] 30.53 kg/m2 Maeve Moreno Other [facility] Other 08-09-2021 17:00-0500 Body weight 91.08 kg Maeve Moreno Other [facility] Other 08-09-2021 17:00-0500 Diastolic blood pressure 80 mm[Hg] Maeve Moreno Other [facility] Other 08-09-2021 17:00-0500 Respiratory rate 18 /min Maeve Moreno Other [facility] Other 08-09-2021 17:00-0500 SaO2% (BldA) [Mass fraction] 99 % Maeve Moreno Other [facility] Other 08-09-2021 17:00-0500 Systolic blood pressure 142 mm[Hg] Maeve Moreno Other [facility] Other Clinical Notes 09-28-2020 to 06-28-2023 Note [...] She was informed that they may need SETTER INDUCTION HEATING EQUIPMENT in near future. Will refer to transplant [...] more than 140s. She has no proteinuria. [facility] Other 09-18-2023 Evaluation note* Encounter Date Diagnosis Assessment Notes Treatment Notes Treatment Clinical Notes Apr, Polycystic dysplastic kidney (ICD-10 - Q61.3) [facility] Other 08-17-2023 Evaluation note* Encounter Date Diagnosis [...] She was informed that they may need SETTER INDUCTION HEATING EQUIPMENT in near future. Will refer to transplant [...] more than 40s. She has no proteinuria. [facility] Other 05-04-2023 Evaluation note* Encounter Date Diagnosis [...] She was informed that they may need SETTER INDUCTION HEATING EQUIPMENT in near future. Will refer to transplant [...] more than 140s. She has no proteinuria. [facility] Other 02-09-2023 Evaluation note* Encounter Date Diagnosis [...] She was informed that they may need SETTER INDUCTION HEATING EQUIPMENT in near future. Will refer to transplant [...] to check blood pressure at my office. [facility] Other 11-17-2022 Evaluation note* Encounter Date Diagnosis [...] She was informed that they may need SETTER INDUCTION HEATING EQUIPMENT in near future. Will refer to transplant [...] She has no bleeding events or hematuria. [facility] Other 08-04-2022 Evaluation note* Encounter Date Diagnosis [...] She was informed that they may need SETTER INDUCTION HEATING EQUIPMENT in near future. Will refer to transplant [...] She has no bleeding events or hematuria. [facility] Other 05-27-2022 Evaluation note* Encounter Date Diagnosis Assessment Notes Treatment Notes Treatment Clinical Notes December, Polycystic dysplastic kidney (ICD-10 - Q61.3) December, CKD (chronic kidney disease) stage 2, GFR 60-89 ml/min (ICD-10 - N18.2) December, Factor V Leiden (ICD-10 - D68.51) [facility] Other 02-09-2021 Evaluation note* Encounter Date Diagnosis Assessment Notes Treatment Notes Treatment Clinical Notes Sep, Polycystic dysplastic kidney (ICD-10 - Q61.3) [facility] Other Evaluation noteNort [employer] Other [facility]No [facility] [employer] Other Evaluation note* Diagnosis Onset Date Resolution Status 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 CKD stage G4/A3, GFR 15-29 a nd albumin creatinine ratio >300 mg/g acute Factor V Leiden acute [id number] acute [facility] Work Phone: Hisfzkj general Narrative - ReportedNoHotelements [employer] Other History general Narrative - Reported* Type Description Date Medical History PCOS Medical History previous blood clot in leg X 2 Medical History CAPILLARY HEMANGIOMA Medical History FACTOR V LEIDEN MUTATION Surgical History WISDOM TEETH X4 Hospitalization History CHILD X 2 Hospitalization History BLOOD CLOT [facility] Other Hisnzei general Narrative - Reported* Type Description Date Medical History PCOS Medical History previous blood clot in leg X 2 Medical History CAPILLARY HEMANGIOMA Medical History FACTOR V LEIDEN MUTATION Surgical History WISDOM TEETH X4 Surgical History EVLT ON RIGHT LEG Hospitalization History CHILD X 2 Hospitalization History BLOOD CLOT [facility] Other Summary Purpose Family History Relationship Condition Age at Onset Recorded Date/T nilda brother Polycystic kidney disease Unknown father Polycystic kidney disease Unknown Advance Directives Advance Directive Response Recorded Date/ Time Advance Directives No July 5:07pm Advance Directive Response Recorded Date/ Time Advance Directives No July 6:07pm Chief Complaint and Reason for Visit Chief Complaint renal 3 month f/u Reason for Visit ADPKD (autosomal dom inant polycystic kidney disease) CKD stage G4/A3, GFR 15-29 and albumin creatinine ratio >300 mg/g Factor V Leiden [id number] Chief Complaint RENAL 3 MONTH F/U Reason for Visit ADPKD (autosomal dom inant polycystic kidney disease) CKD stage G4/A3, GFR 15-29 and albumin creatinine ratio >300 mg/g Factor V Leiden [id number] Additional Source Comments INFORMATION SOURCE (unrecogn ized section and content) DATE CREATED AUTHOR 09/06/2019 [facility] DATE CREATED AUTHOR AUTHOR'S ORGANIZ ATION [...] Follow up ADSPKD, on 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 [employer] Care Teams (unrecognized sec tion and content) Team Status: Active Member Role Status Sheridan James MD Primary Care Provider Active Team Status: Inactive Member Role Status Sheridan James MD Primary Care Provider Active Start: October 11, 2023 End: October 11, 2023 Maeve Moreno MD Attending Provider Active Star t: October 11, 2023 End: October 11, 2023 Team Status: Active Member Role Status Sheridan James MD Primary Care Provider Active Start: October 11, 2023 Maeve Moreno MD Attending Provider Active Star t: October 11, 2023 Team Status: Inactive Member Role Status Sheridan James MD Primary Care Provider Active Start: January 10, 2024 End: January 10, 2024 Maeve Moreno MD Attending Provider Active Star t: January 10, 2024 End: January 10, 2024 Goals (unrecognized section and content) Goals may be documented in a n alternate section FOR RECORDS PERTAINING TO PATIENTS WHO ARE [...] BE BASED ON THE PRIMARY CLINICAL RECORDS. [facility]. provides no warranty or guarantee of the accuracy or completeness of information in this document.
[2024-01-19 09:31] LABS: Basophils Absolute Auto 0.1 10^3/uL (0.0-0.1); Basophils Percent Auto 0.6 % (0.2-2.0); Eosinophils Absolute Auto 0.3 10^3/uL (0.0-0.7); Eosinophils Percent Auto 3.4 % (0.9-7.0); Hemoglobin 13.2 g/dL (12.0-16.0); Immature Granulocytes Abs Auto 0.02 10^3/uL (0.00-0.03); Immature Granulocytes Pct Auto 0.2 % (0.0-0.5); Lymphocytes Absolute Auto 2.5 10^3/uL (1.2-3.8); Lymphocytes Percent Auto 28.3 % (20.5-60.0); Mean Corpuscular HGB Conc 31.4 g/dL (29.9-35.2); Mean Corpuscular Hemoglobin 28.1 pg (26.7-34.0); Mean Corpuscular Volume 89.4 fL (81.0-99.0); Mean Platelet Volume 12.6 fL (9.5-13.5); Monocytes Absolute Auto 0.5 10^3/uL (0.3-0.8); Neutrophils Absolute Auto 5.4 10^3/uL (1.4-6.5); Neutrophils Percent Auto 61.5 % (43.0-75.0); Platelet Count 158 10^3/uL (150-450); Red Cell Distribution Width 13.5 % (11.0-15.0); White Blood Count 8.8 10^3/uL (4.0-11.0)
[2024-01-19 09:58] LABS: Estimated Average Glucose 114 mg/dL; Glycohemoglobin A1C 5.6 % (4.5-6.2)
[2024-01-19 10:04] LABS: Alanine Aminotransferase 18 U/L (14-59); Albumin Level 3.8 g/dL (3.4-5.0); Alkaline Phosphatase 47 U/L (46-116); Anion Gap 13.8; Aspartate Amino Transferase 13 U/L (15-37); BUN Creatinine Ratio 11.7; Bilirubin Total 0.8 mg/dL (0.2-1.0); Calcium 9.2 mg/dL (8.5-10.1); Carbon Dioxide 25.1 mmol/L (21.0-32.0); Chloride 106 mmol/L (98-107); Chol HDL Ratio 3.2; Cholesterol 222 mg/dL (<=200); Estimated GFR (African America 28 (>=60); Estimated GFR (Non-African Ame 23 (>=60); Free T3 2.38 pg/mL (2.18-3.98); Globulin 3.8 g/dL; Glucose 93 mg/dL (74-106); HDL Cholesterol 69 mg/dL (40-60); Potassium 3.9 mmol/L (3.5-5.1); Sodium 141 mmol/L (136-145); Thyroid Stimulating Hormone 2.626 uIU/mL (0.358-3.740); Total Protein 7.6 g/dL (6.4-8.2); Triglycerides 85 mg/dL (<=150)
== END 2024-01-19 09:06 | disposition home or self-care (01) ==
LOC: LAB 09:05
PROVIDERS: PCP Family Medicine; Visit Provider Family Medicine
DX: Z00.00 Encounter for general adult medical examination without abnormal findings (principal)
CPT/HCPCS: 36415; 80053; 80061; 83036; 83540; 84436; 84443; 84481; 85025

== ENCOUNTER 2024-03-20 15:42 | Outpatient (OUT) | payer OTHER, SELFPAY ==
[2024-03-20 16:00] LABS: Hematocrit 38.5 % (36.0-48.0); Hemoglobin 12.4 g/dL (12.0-16.0); Mean Corpuscular HGB Conc 32.2 g/dL (29.9-35.2); Mean Corpuscular Hemoglobin 28.9 pg (26.7-34.0); Mean Corpuscular Volume 89.7 fL (81.0-99.0); Mean Platelet Volume 12.3 fL (9.5-13.5); Platelet Count 142 10^3/uL (150-450); Red Blood Count 4.29 10^6/uL (4.20-5.40); Red Cell Distribution Width 13.6 % (11.0-15.0); White Blood Count 9.8 10^3/uL (4.0-11.0)
--- OUTSIDE RECORDS SUMMARY | 2024-03-20 16:05 | XMS_ITS | CCD ---
Author Organization [facility] Care Team Providers Care [employer] Name Role Phone Maeve Moreno Unavailable DR MAEVE MORENO Admitting Unavailable DR MAEVE MORENO Consulting Unavailable DR MAREN GONZALEZ Primary Care Unavailable TIFFANIE, DR MCFARLANE Attending Unavailable TIFFANIE, DR MCFARLANE Consulting Unavailable TIFFANIE, DR MCFARLANE Attending Unavailable TIFFANIE, DR MCFARLANE Admitting Unavailable ANGEL .DR ENGEL Primary Care Unavailable TIFFANIE, DR MCFARLANE Consulting Unavailable DR MAEVE MORENO Attending Unavailable ANGEL .DR ENGEL Primary Care Unavailable DR MAEVE MORENO Admitting Unavailable TIFFANIE, DR MCFARLANE Consulting Unavailable TIFFANIE, DR MCFARLANE Attending Unavailable DR MAREN GONZALEZ Primary Care Unavailable DR MAEVE MORENO Admitting Unavailable TIFFANIE, DR MCFARLANE Consulting Unavailable DR MAEVE MORENO Attending Unavailable ANGEL .DR ENGEL Primary Care Unavailable TIFFANIE, DR MCFARLANE Admitting Unavailable HOMckenzie ., DR ENGEL Consulting Unavailable ANGEL .DR ENGEL Attending Unavailable HOMckenzie .DR ENGEL Admitting Unavailable ANGEL .DR ENGEL Primary Care Unavailable ANGEL .DR ENGEL Consulting Unavailable ANGEL .DR ENGEL Attending Unavailable HOMckenzie ., DR ENGEL Admitting Unavailable ANGEL .DR ENGEL Primary Care Unavailable DR JONATHON WYATT Consulting Unavailable DR AMEVE MORENO Consulting Unavailable DR MAEVE MORENO Attending Unavailable DR MAREN GONZALEZ Primary Care Unavailable DR MAEVE MORENO Admitting Unavailable DR MAEVE MORENO Consulting Unavailable DR MAEVE MORENO Attending Unavailable DR MAREN GONZALEZ Primary Care Unavailable DR MAEVE MORENO Admitting Unavailable DR MAEVE MORENO Admitting Unavailable DR MAEVE MORENO Consulting Unavailable DR MAREN GONZALEZ Primary Care Unavailable TIFFANIE, DR MCFARLANE Attending Unavailable Allergies Allergy Classification Reported Allergen(s) Allergy Type Date of Onset Reaction(s) Facility (19 sources) Sulfonamides (Antibiotic) Propensity to adverse reactions rash Abeelo Other Medications Current Medications Medication Drug Class(es) [...] (Original) Triamcinolone (17 sources) Corticosteroid Start: 03-23-2020 KENALOG [...] 12-15-2022 PTH, Intact 65 pg/mL Normal 15-65 [facility] Comment on above: Performed By: #### L IPID, CMP, TSH, T7 #### [facility] [address] [address] [address] Jessica Mosqueda HEMOGRAM AND PLATELon 2022 Hematocrit (Bld) [Volume fraction] 41.0 % Normal 36.0-48.0 [facility] Comment on above: Performed By: #### H H #### [facility] [address] [address] [address] Jessica Mosqueda Hemoglobin (Bld) [Mass/Vol] 13.0 g/dL Normal 12.0-16.0 [facility] Comment on above: Performed By: #### H H #### [facility] [address] [address] [address] Jessica Mosqueda MCH (RBC) [Entitic mass] 28.6 pg Normal 26.7-34.0 [facility] Comment on above: Performed By: #### H H #### [facility] [address] [place] [address] Dr. Jessica Mosqueda MCHC (RBC) [Mass/Vol] 31.7 g/dL Normal 29.9-35.2 [facility] Comment on above: Performed By: #### H H #### [facility] [address] [place] [address] Dr. Jessica Mosqueda MCV (RBC) [Entitic vol] 90.3 fL Normal 81.0-99.0 [facility] Comment on above: Performed By: #### H H #### [facility] [address] [place] [address] Dr. Jessica Mosqueda PLT 133 103/ul Critically low 150-450 [facility] Comment on above: Performed By: #### H H #### [facility] [address] [place] [address] Dr. Jessica Mosqueda RBC 4.54 106/ul Normal 4.20-5.40 [facility] Comment on above: Performed By: #### H H #### [facility] [address] [place] [address] Dr. Jessica Mosqueda WBC 9.0 103/ul Normal 4.0-11.0 [facility] Comment on above: Performed By: #### H H #### [facility] [address] [place] [address] Dr. Jessica Mosqueda PHOSPHORUSon 12-13-2022 Phosphate [Mass/Vol] 4.3 mg/dL Normal 2.6-4.7 [facility] Comment on above: Performed By: #### P THINT #### [facility] [address] [place] [address] Dr. Jessica Mosqueda PROF 14(COMP METB)on 023 Albumin [Mass/Vol] 3.8 g/dL Normal 3.4-5.0 [facility] Comment on above: Performed By: #### P THINT #### [facility] [address] [place] [address] Dr. Jessica Mosqueda Albumin/Globulin [Mass ratio] 1.1 {ratio} Normal [facility] Comment on above: Performed By: #### P THINT #### [facility] [address] [place] [address] Dr. Jessica Mosqueda ALP [Catalytic activity/Vol] 36 U/L Critically low 46-116 [facility] Comment on above: Performed By: #### P THINT #### [facility] [address] [place] [address] Dr. Jessica Mosqueda ALT [Catalytic activity/Vol] 14 U/L Normal 14-59 [facility] Comment on above: Performed By: #### P THINT #### [facility] [address] [place] [address] Dr. Jessica Mosqueda Anion gap [Moles/Vol] 11.9 mmol/L Normal [facility] Comment on above: Performed By: #### P THINT #### [facility] [address] [place] [address] Dr. Jessica Mosqueda AST [Catalytic activity/Vol] 13 U/L Critically low 15-37 [facility] Comment on above: Performed By: #### P THINT #### [facility] [address] [place] [address] Dr. Jessica Mosqueda Bilirubin [Mass/Vol] 0.3 mg/dL Normal 0.2-1.0 [facility] Comment on above: Performed By: #### P THINT #### [facility] [address] [place] [address] Dr. Jessica Mosqueda Calcium [Mass/Vol] 9.0 mg/dL Normal 8.5-10.1 [facility] Comment on above: Performed By: #### P THINT #### [facility] [address] [place] [address] Dr. Jessica Mosqueda Chloride [Moles/Vol] 107 mmol/L Normal 98-107 [facility] Comment on above: Performed By: #### P THINT #### [facility] [address] [place] [address] Dr. Jessica Mosqueda CO2 [Moles/Vol] 28.1 mmol/L Normal 21.0-32.0 [facility] Comment on above: Performed By: #### P THINT #### [facility] [address] [address] [address] Jessica Mosqueda Creatinine [Mass/Vol] 2.10 mg/dL Critically high 0.55-1.02 [facility] Comment on above: Performed By: #### P THINT #### [facility] [address] [address] [address] Jessica Mosqueda EGFR-AF [place] 31 mL/min/1.73m2 Critically low >=60 [facility] Comment on above: Performed By: #### P THINT #### [facility] [address] [address] [address] Jessica Mosqueda EGFR-NON AF [place] 26 mL/min/1.73m2 Critically low >=60 [facility] Comment on above: Performed By: #### P THINT #### [facility] [address] [address] [address] Jessica Mosqueda Globulin (S) [Mass/Vol] 3.6 g/dL Normal [facility] Comment on above: Performed By: #### P THINT #### [facility] [address] [address] [address] Jessica Mosqueda Glucose [Mass/Vol] 82 mg/dL Normal 74-106 [facility] Comment on above: Performed By: #### P THINT #### [facility] [address] [address] [address] Jessica Mosqueda Potassium [Moles/Vol] 4.0 mmol/L Normal 3.5-5.1 [facility] Comment on above: Performed By: #### P THINT #### [facility] [address] [address] [address] Jessica Mosqueda Protein [Mass/Vol] 7.4 g/dL Normal 6.4-8.2 [facility] Comment on above: Performed By: #### P THINT #### [facility] [address] [address] [address] Jessica Mosqueda Sodium [Moles/Vol] 143 mmol/L Normal 136-145 [facility] Comment on above: Performed By: #### P THINT #### [facility] [address] [place], [place] [address] Dr. Jessica Mosqueda Urea nitrogen [Mass/Vol] 23.0 mg/dL Critically high 7.0-18.0 [facility] Comment on above: Performed By: #### P THINT #### [facility] [address] [place], [place] [address] Dr. Jessica Mosqueda Urea nitrogen/Creatinine [Mass ratio] 11.0 mg/mg Normal [facility] Comment on above: Performed By: #### P THINT #### [facility] [address] [place], [place] [address] Dr. Jessica Mosqueda MG MAMM SCREEN 3D MATILDA CADon 11-14-2022 MG MAMM SCREEN 3D MATILDA CAD Patient: ISABEL RIVERA Exam Date: 11/14/2022 : 1980 Gender:F Ordering : DR MAREN JAMES . Admission #: [id number] Family : Order #: [id number] CLICK HERE TO VIEW EXAM RADIOLOGY REPORT [...] unknown cancer at age 51. LOCATION: [facility] BREAST COMPOSITION: Extremely dense, which lowers [...] M.D. on 11/15/2022 at 07:51 Normal [facility] INSULINon 11-11-2022 Insulin 7.2 uIU/mL Normal 2.6-24.9 [facility] Comment on above: Performed By: #### I NSULIN #### [facility] [address] [place] [address] Dr. Jessica Mosqueda CBC AUTO DIFFon 11-10-2022 BASO # 0.0 103/ul Normal 0.0-0.1 [facility] Comment on above: Performed By: #### L IPID, CMP, TSH, T7 #### [facility] [address] [place] [address] Dr. Jessica Mosqueda Basophils/100 WBC (Bld) 0.5 % Normal 0.2-2.0 [facility] Comment on above: Performed By: #### L IPID, CMP, TSH, T7 #### [facility] [address] [place] [address] Dr. Jessica Mosqueda EO # 0.3 103/ul Normal 0.0-0.7 [facility] Comment on above: Performed By: #### L IPID, CMP, TSH, T7 #### [facility] [address] [place] [address] Dr. Jessica Mosqueda Eosinophils/100 WBC (Bld) 3.6 % Normal 0.9-7.0 [facility] Comment on above: Performed By: #### L IPID, CMP, TSH, T7 #### [facility] [address] [place] [address] Dr. Jessica Mosqueda Erythrocyte distribution width (RBC) [Ratio] 13.2 % Normal 11.0-15.0 [facility] Comment on above: Performed By: #### L IPID, CMP, TSH, T7 #### [facility] [address] [place] [address] Dr. Jessica Mosqueda Hematocrit (Bld) [Volume fraction] 41.9 % Normal 36.0-48.0 [facility] Comment on above: Performed By: #### L IPID, CMP, TSH, T7 #### [facility] [address] [place] [address] Dr. Jessica Mosqueda Hemoglobin (Bld) [Mass/Vol] 13.3 g/dL Normal 12.0-16.0 [facility] Comment on above: Performed By: #### L IPID, CMP, TSH, T7 #### [facility] [address] [place] [address] Dr. Jessica Mosqueda IG # 0.02 10e3/ul Normal 0.00-0.03 [facility] Comment on above: Performed By: #### L IPID, CMP, TSH, T7 #### [facility] [address] [place] [address] Dr. Jessica Mosqueda IG % 0.3 % Normal 0.0-0.5 [facility] Comment on above: Performed By: #### L IPID, CMP, TSH, T7 #### [facility] [address] [place] [address] Dr. Jessica Mosqueda LYMPH # 2.2 103/ul Normal 1.2-3.8 [facility] Comment on above: Performed By: #### L IPID, CMP, TSH, T7 #### [facility] [address] [place] [address] Dr. Jessica Mosqueda Lymphocytes/100 WBC (Bld) 29.6 % Normal 20.5-60.0 [facility] Comment on above: Performed By: #### L IPID, CMP, TSH, T7 #### [facility] [address] [place] [address] Dr. Jessica Mosqueda MANUAL DIFF REQ NO Normal [facility] Comment on above: Performed By: #### L IPID, CMP, TSH, T7 #### [facility] [address] [place] [address] Dr. Jessica Mosqueda MCH (RBC) [Entitic mass] 28.9 pg Normal 26.7-34.0 [facility] Comment on above: Performed By: #### L IPID, CMP, TSH, T7 #### [facility] [address] [place] [address] Dr. Jessica Mosqueda MCHC (RBC) [Mass/Vol] 31.7 g/dL Normal 29.9-35.2 [facility] Comment on above: Performed By: #### L IPID, CMP, TSH, T7 #### [facility] [address] [place] [address] Dr. Jessica Mosqueda MCV (RBC) [Entitic vol] 91.1 fL Normal 81.0-99.0 [facility] Comment on above: Performed By: #### L IPID, CMP, TSH, T7 #### [facility] [address] [place] [address] Dr. Jessica Mosqueda MONO # 0.5 103/ul Normal 0.3-0.8 [facility] Comment on above: Performed By: #### L IPID, CMP, TSH, T7 #### [facility] [address] [place] [address] Dr. Jessica Mosqueda Monocytes/100 WBC (Bld) 6.1 % Normal 1.7-12.0 [facility] Comment on above: Performed By: #### L IPID, CMP, TSH, T7 #### [facility] [address] [place] [address] Dr. Jessica Mosqueda NEUT # 4.4 103/ul Normal 1.4-6.5 [facility] Comment on above: Performed By: #### L IPID, CMP, TSH, T7 #### [facility] [address] [place] [address] Dr. Jessica Mosqueda Neutrophils/100 WBC (Bld) 59.9 % Normal 43.0-75.0 [facility] Comment on above: Performed By: #### L IPID, CMP, TSH, T7 #### [facility] [address] [place] [address] Dr. Jessica Mosqueda Platelet mean volume (Bld) [Entitic vol] 12.5 fL Normal 9.5-13.5 [facility] Comment on above: Performed By: #### L IPID, CMP, TSH, T7 #### [facility] [address] [place] [address] Dr. Jessica Mosqueda PLT 157 103/ul Normal 150-450 [facility] Comment on above: Performed By: #### L IPID, CMP, TSH, T7 #### [facility] [address] [place] [address] Dr. Jessica Mosqueda RBC 4.60 106/ul Normal 4.20-5.40 [facility] Comment on above: Performed By: #### L IPID, CMP, TSH, T7 #### [facility] [address] [place] [address] Dr. Jessica Mosqueda WBC 7.3 103/ul Normal 4.0-11.0 [facility] Comment on above: Performed By: #### L IPID, CMP, TSH, T7 #### [facility] [address] [place] [address] Dr. Jessica Mosqueda FREE THYROXINE INDEX T7on FTI 2.51 Normal 1.30-4.50 [facility] Comment on above: Performed By: #### L IPID, CMP, TSH, T7 #### [facility] [address] [place] [address] Dr. Jessica Mosqueda T3U 38.0 % Normal 30.0-39.0 [facility] Comment on above: Performed By: #### L IPID, CMP, TSH, T7 #### [facility] [address] [place] [address] Dr. Jessica Mosqueda T4 [Mass/Vol] 6.60 ug/dL Normal 4.80-13.90 [facility] Comment on above: Performed By: #### L IPID, CMP, TSH, T7 #### [facility] [address] [place] [address] Dr. Jessica Mosqueda GLYCOHEMOGLOBIN A1Con 2022 ADA RECOMMENDATION SEE BELOW Normal [facility] Comment on above: Result Comment: ADA RECOMMENDED LIMIT 4.0 - 6.0 ADA THERAPEUTIC TARGET < 7.0 ACTION SUGGESTED > 7.0 Performed By: #### P THINT #### [facility] [address] [place] [address] Dr. Jessica Mosqueda Glucose [Mass/Vol] 111 mg/dL Normal [facility] Comment on above: Performed By: #### P THINT #### [facility] [address] [place] [address] Dr. Jessica Mosqueda HbA1c (Bld) [Mass fraction] 5.5 % Normal 4.5-6.2 [facility] Comment on above: Performed By: #### P THINT #### [facility] [address] [place] [address] Dr. Jessica Mosqueda IRONon 11-10-2022 Iron [Mass/Vol] 58.0 ug/dL Normal 50.0-170.0 [facility] Comment on above: Performed By: #### P THINT #### [facility] [address] [address] [address] Jessica Mosqueda LIPID PROFILEon 11-10-2022 CHOL-HDL RATIO NORM SEE BELOW Normal [facility] Comment on above: Result Comment: 3.3 - 4.4 LOW RISK 4.4 - 7.1 AVERAGE RISK 7.1 - 11.0 MODERATE RISK >11.0 HIGH RISK Performed By: #### L IPID, CMP, TSH, T7 #### [facility] [address] [place] [address] Dr. Jessica Mosqueda Cholesterol [Mass/Vol] 205 mg/dL Critically high <=200 [facility] Comment on above: Performed By: #### L IPID, CMP, TSH, T7 #### [facility] [address] [place] [address] Dr. Jessica Mosqueda Cholesterol in HDL [Mass/Vol] 60 mg/dL Normal 40-60 [facility] Comment on above: Performed By: #### L IPID, CMP, TSH, T7 #### [facility] [address] [place] [address] Dr. Jessica Mosqueda Cholesterol in LDL [Mass/Vol] 127.4 mg/dL Normal [facility] Comment on above: Performed By: #### L IPID, CMP, TSH, T7 #### [facility] [address] [place] [address] Dr. Jessica Mosqueda Cholesterol.total/Cho lesterol in HDL [Mass ratio] 3.4 {ratio} Normal [facility] Comment on above: Performed By: #### L IPID, CMP, TSH, T7 #### [facility] [address] [place] [address] Dr. Jessica Mosqueda HDL NORMAL > or = 60 mg/dl - LOW CARDIOVASCULAR RISK <40 mg/dl - HIGH CARDIOVASCULAR RISK Normal [facility] Comment on above: Performed By: #### L IPID, CMP, TSH, T7 #### [facility] [address] [address] [address] Jessica Mosqueda LDL CALC NORMAL SEE BELOW Normal [facility] Comment on above: Result Comment: <100 mg/dl OPTIMAL 100 - 129 mg/dl NEAR OR ABOVE OPTIMAL 130 - 159 mg/dl BORDERLINE HIGH 160 - 189 mg/dl HIGH >190 mg/dl VERY HIGH Performed By: #### L IPID, CMP, TSH, T7 #### [facility] [address] [address] [address] Jessica Mosqueda Triglyceride [Mass/Vol] 88 mg/dL Normal <=150 [facility] Comment on above: Performed By: #### L IPID, CMP, TSH, T7 #### [facility] [address] [address] [address] Jessica Mosqueda VLDL CALC 17.6 mg/dL Normal [facility] Comment on above: Performed By: #### L IPID, CMP, TSH, T7 #### [facility] [address] [address] [address] Jessica Mosqueda PROF 14(COMP METB)on 023 Albumin [Mass/Vol] 3.8 g/dL Normal 3.4-5.0 [facility] Comment on above: Performed By: #### L IPID, CMP, TSH, T7 #### [facility] [address] [address] [address] Jessica Mosqueda Albumin/Globulin [Mass ratio] 1.1 {ratio} Normal [facility] Comment on above: Performed By: #### L IPID, CMP, TSH, T7 #### [facility] [address] [address] [address] Jessica Mosqueda ALP [Catalytic activity/Vol] 37 U/L Critically low 46-116 [facility] Comment on above: Performed By: #### L IPID, CMP, TSH, T7 #### [facility] [address] [address] [address] Jessica Mosqueda ALT [Catalytic activity/Vol] 16 U/L Normal 14-59 [facility] Comment on above: Performed By: #### L IPID, CMP, TSH, T7 #### [facility] [address] [address] [address] Jessica Mosqueda Anion gap [Moles/Vol] 13.7 mmol/L Normal [facility] Comment on above: Performed By: #### L IPID, CMP, TSH, T7 #### [facility] [address] [address] [address] Jessica Mosqueda AST [Catalytic activity/Vol] 14 U/L Critically low 15-37 [facility] Comment on above: Performed By: #### L IPID, CMP, TSH, T7 #### [facility] [address] [address] [address] Jessica Mosqueda Bilirubin [Mass/Vol] 0.4 mg/dL Normal 0.2-1.0 [facility] Comment on above: Performed By: #### L IPID, CMP, TSH, T7 #### [facility] [address] [place] [address] Dr. Jessica Mosqueda Calcium [Mass/Vol] 9.6 mg/dL Normal 8.5-10.1 [facility] Comment on above: Performed By: #### L IPID, CMP, TSH, T7 #### [facility] [address] [address] [address] Jessica Mosqueda Chloride [Moles/Vol] 107 mmol/L Normal 98-107 [facility] Comment on above: Performed By: #### L IPID, CMP, TSH, T7 #### [facility] [address] [address] [address] Jessica Mosqueda CO2 [Moles/Vol] 27.5 mmol/L Normal 21.0-32.0 [facility] Comment on above: Performed By: #### L IPID, CMP, TSH, T7 #### [facility] [address] [address] [address] Jessica Mosqueda Creatinine [Mass/Vol] 1.74 mg/dL Critically high 0.55-1.02 [facility] Comment on above: Performed By: #### L IPID, CMP, TSH, T7 #### [facility] [address] [address] [address] Jessica Mosqueda EGFR-AF [place] 39 mL/min/1.73m2 Critically low >=60 [facility] Comment on above: Performed By: #### L IPID, CMP, TSH, T7 #### [facility] [address] [address] [address] Jessica Mosqueda EGFR-NON AF [place] 32 mL/min/1.73m2 Critically low >=60 [facility] Comment on above: Performed By: #### L IPID, CMP, TSH, T7 #### [facility] [address] [place] [address] Dr. Jessica Mosqueda Globulin (S) [Mass/Vol] 3.4 g/dL Normal [facility] Comment on above: Performed By: #### L IPID, CMP, TSH, T7 #### [facility] [address] [place] [address] Dr. Jessica Mosqueda Glucose [Mass/Vol] 95 mg/dL Normal 74-106 [facility] Comment on above: Performed By: #### L IPID, CMP, TSH, T7 #### [facility] [address] [place] [address] Dr. Jessica Mosqueda Potassium [Moles/Vol] 4.2 mmol/L Normal 3.5-5.1 [facility] Comment on above: Performed By: #### L IPID, CMP, TSH, T7 #### [facility] [address] [place] [address] Dr. Jessica Mosqueda Protein [Mass/Vol] 7.2 g/dL Normal 6.4-8.2 [facility] Comment on above: Performed By: #### L IPID, CMP, TSH, T7 #### [facility] [address] [place] [address] Dr. Jessica Mosqueda Sodium [Moles/Vol] 144 mmol/L Normal 136-145 [facility] Comment on above: Performed By: #### L IPID, CMP, TSH, T7 #### [facility] [address] [place] [address] Dr. Jessica Mosqueda Urea nitrogen [Mass/Vol] 25.0 mg/dL Critically high 7.0-18.0 [facility] Comment on above: Performed By: #### L IPID, CMP, TSH, T7 #### [facility] [address] [place] [address] Dr. Jessica Mosqueda Urea nitrogen/Creatinine [Mass ratio] 14.4 mg/mg Normal [facility] Comment on above: Performed By: #### L IPID, CMP, TSH, T7 #### [facility] [address] [place] [address] Dr. Jessica Mosqueda TSHon 11-10-2022 TSH 1.244 uIU/mL Normal 0.358-3.740 [facility] Comment on above: Performed By: #### L IPID, CMP, TSH, T7 #### [facility] [address] [place] [address] Dr. Jessica Mosqueda PTH INTACTon 09-28-2022 PTH, Intact 43 pg/mL Normal 15-65 [facility] [facility] Comment on above: Performed By: #### L IPID, CMP, TSH, T7 #### [facility] [address] [place] [address] Dr. Jessica Mosqueda HEMOGRAM AND PLATELon 2022 Hematocrit (Bld) [Volume fraction] 39.0 % Normal 36.0-48.0 [facility] Comment on above: Performed By: #### H H #### [facility] [address] [place] [address] Dr. Jessica Mosqueda Hemoglobin (Bld) [Mass/Vol] 12.3 g/dL Normal 12.0-16.0 [facility] Comment on above: Performed By: #### H H #### [facility] [address] [place] [address] Dr. Jessica Mosqueda MCH (RBC) [Entitic mass] 29.1 pg Normal 26.7-34.0 [facility] Comment on above: Performed By: #### H H #### [facility] [address] [place] [address] Dr. Jessica Mosqueda MCHC (RBC) [Mass/Vol] 31.5 g/dL Normal 29.9-35.2 [facility] Comment on above: Performed By: #### H H #### [facility] [address] [place] [address] Dr. Jessica Mosqueda MCV (RBC) [Entitic vol] 92.4 fL Normal 81.0-99.0 [facility] Comment on above: Performed By: #### H H #### [facility] [address] [place] [address] Dr. Jessica Mosqueda PLT 131 103/ul Critically low 150-450 [facility] Comment on above: Performed By: #### H H #### [facility] [address] [place] [address] Dr. Jessica Mosqueda RBC 4.22 106/ul Normal 4.20-5.40 [facility] Comment on above: Performed By: #### H H #### [facility] [address] [place] [address] Dr. Jessica Mosqueda WBC 8.6 103/ul Normal 4.0-11.0 [facility] Comment on above: Performed By: #### H H #### [facility] [address] [place] [address] Dr. Jessica Mosqueda PHOSPHORUSon 09-26-2022 Phosphate [Mass/Vol] 4.3 mg/dL Normal 2.6-4.7 [facility] Comment on above: Performed By: #### P THINT #### [facility] [address] [place] [address] Dr. Jessica Mosqueda PROF 14(COMP METB)on 023 Albumin [Mass/Vol] 3.9 g/dL Normal 3.4-5.0 [facility] Comment on above: Performed By: #### P THINT #### [facility] [address] [place] [address] Dr. Jessica Mosqueda Albumin/Globulin [Mass ratio] 1.1 {ratio} Normal [facility] Comment on above: Performed By: #### P THINT #### [facility] [address] [address] [address] Jessica Mosqueda ALP [Catalytic activity/Vol] 34 U/L Critically low 46-116 [facility] Comment on above: Performed By: #### P THINT #### [facility] [address] [address] [address] Jessica Mosqueda ALT [Catalytic activity/Vol] 13 U/L Critically low 14-59 [facility] Comment on above: Performed By: #### P THINT #### [facility] [address] [address] [address] Jessica Mosqueda Anion gap [Moles/Vol] 13.6 mmol/L Normal [facility] Comment on above: Performed By: #### P THINT #### [facility] [address] [address] [address] Jessica Mosqueda AST [Catalytic activity/Vol] 9 U/L Critically low 15-37 [facility] Comment on above: Performed By: #### P THINT #### [facility] [address] [address] [address] Jessica Mosqueda Bilirubin [Mass/Vol] 0.3 mg/dL Normal 0.2-1.0 [facility] Comment on above: Performed By: #### P THINT #### [facility] [address] [address] [address] Jessica Mosqueda Calcium [Mass/Vol] 9.5 mg/dL Normal 8.5-10.1 [facility] Comment on above: Performed By: #### P THINT #### [facility] [address] [address] [address] Jessica Mosqueda Chloride [Moles/Vol] 105 mmol/L Normal 98-107 [facility] Comment on above: Performed By: #### P THINT #### [facility] [address] [address] [address] Jessica Mosqueda CO2 [Moles/Vol] 24.7 mmol/L Normal 21.0-32.0 [facility] Comment on above: Performed By: #### P THINT #### [facility] [address] [address] [address] Jessica Mosqueda Creatinine [Mass/Vol] 1.67 mg/dL Critically high 0.55-1.02 [facility] Comment on above: Performed By: #### P THINT #### [facility] [address] [address] [address] Jessica Mosqueda EGFR-AF [place] 41 mL/min/1.73m2 Critically low >=60 [facility] Comment on above: Performed By: #### P THINT #### [facility] [address] [address] [address] Jessica Mosqueda EGFR-NON AF [place] 34 mL/min/1.73m2 Critically low >=60 [facility] Comment on above: Performed By: #### P THINT #### [facility] [address] [address] [address] Jessica Mosqueda Globulin (S) [Mass/Vol] 3.5 g/dL Normal [facility] Comment on above: Performed By: #### P THINT #### [facility] [address] [address] [address] Jessica Mosqueda Glucose [Mass/Vol] 94 mg/dL Normal 74-106 [facility] Comment on above: Performed By: #### P THINT #### [facility] [address] [address] [address] Jessica Mosqueda Potassium [Moles/Vol] 4.4 mmol/L Normal 3.5-5.1 [facility] Comment on above: Performed By: #### P THINT #### [facility] [address] [address] [address] Jessica Mosqueda Protein [Mass/Vol] 7.4 g/dL Normal 6.4-8.2 [facility] Comment on above: Performed By: #### P THINT #### [facility] [address] [address] [address] Jessica Mosqueda Sodium [Moles/Vol] 139 mmol/L Normal 136-145 [facility] Comment on above: Performed By: #### P THINT #### [facility] [address] [address] [address] Jessica Mosqueda Urea nitrogen [Mass/Vol] 29.0 mg/dL Critically high 7.0-18.0 [facility] Comment on above: Performed By: #### P THINT #### [facility] [address] [address] [address] Jessica Mosqueda Urea nitrogen/Creatinine [Mass ratio] 17.4 mg/mg Normal [facility] Comment on above: Performed By: #### P THINT #### [facility] [address] [address] [address] Jessica Mosqueda PTH INTACTon 06-30-2022 PTH, Intact 64 pg/mL Normal 15-65 [facility] Comment on above: Performed By: #### P THINT #### [facility] [address] [place] [address] Dr. Jessica Mosqueda HEMOGRAM AND PLATELon 2021 Hematocrit (Bld) [Volume fraction] 37.5 % Normal 36.0-48.0 [facility] Comment on above: Performed By: #### P THINT #### [facility] [address] [place] [address] Dr. Jessica Mosqueda Hemoglobin (Bld) [Mass/Vol] 12.1 g/dL Normal 12.0-16.0 [facility] Comment on above: Performed By: #### P THINT #### [facility] [address] [place] [address] Dr. Jessica Mosqueda MCH (RBC) [Entitic mass] 29.0 pg Normal 26.7-34.0 [facility] Comment on above: Performed By: #### P THINT #### [facility] [address] [place] [address] Dr. Jessica Mosqueda MCHC (RBC) [Mass/Vol] 32.3 g/dL Normal 29.9-35.2 [facility] Comment on above: Performed By: #### P THINT #### [facility] [address] [address] [address] Jessica Mosqueda MCV (RBC) [Entitic vol] 89.9 fL Normal 81.0-99.0 [facility] Comment on above: Performed By: #### P THINT #### [facility] [address] [place] [address] Dr. Jessica Moqsueda PLT 170 103/ul Normal 150-450 [facility] Comment on above: Performed By: #### P THINT #### [facility] [address] [place] [address] Dr. Jessica Mosqueda RBC 4.17 106/ul Critically low 4.20-5.40 [facility] Comment on above: Performed By: #### P THINT #### [facility] [address] [place] [address] Dr. Jessica Mosqueda WBC 9.4 103/ul Normal 4.0-11.0 [facility] Comment on above: Performed By: #### P THINT #### [facility] [address] [place] [address] Dr. Jessica Mosqueda PHOSPHORUSon 06-29-2022 Phosphate [Mass/Vol] 3.8 mg/dL Normal 2.6-4.7 [facility] Comment on above: Performed By: #### L IPID, CMP, TSH, T7 #### [facility] [address] [place] [address] Dr. Jessica Mosqueda PROF 14(COMP METB)on 022 Albumin [Mass/Vol] 4.0 g/dL Normal 3.4-5.0 [facility] Comment on above: Performed By: #### L IPID, CMP, TSH, T7 #### [facility] [address] [place] [address] Dr. Jessica Mosqueda Albumin/Globulin [Mass ratio] 1.2 {ratio} Normal [facility] Comment on above: Performed By: #### L IPID, CMP, TSH, T7 #### [facility] [address] [place] [address] Dr. Jessica Mosqueda ALP [Catalytic activity/Vol] 38 U/L Critically low 46-116 [facility] Comment on above: Performed By: #### L IPID, CMP, TSH, T7 #### [facility] [address] [address] [address] Jessica Mosqueda ALT [Catalytic activity/Vol] 13 U/L Critically low 14-59 [facility] Comment on above: Performed By: #### L IPID, CMP, TSH, T7 #### [facility] [address] [address] [address] Jessica Mosqueda Anion gap [Moles/Vol] 13.1 mmol/L Normal [facility] Comment on above: Performed By: #### L IPID, CMP, TSH, T7 #### [facility] [address] [address] [address] Jessica Mosqueda AST [Catalytic activity/Vol] 14 U/L Critically low 15-37 [facility] Comment on above: Performed By: #### L IPID, CMP, TSH, T7 #### [facility] [address] [place] [address] Dr. Jessica Mosqueda Bilirubin [Mass/Vol] 0.4 mg/dL Normal 0.2-1.0 [facility] Comment on above: Performed By: #### L IPID, CMP, TSH, T7 #### [facility] [address] [address] [address] Jessica Mosqueda Calcium [Mass/Vol] 9.2 mg/dL Normal 8.5-10.1 [facility] Comment on above: Performed By: #### L IPID, CMP, TSH, T7 #### [facility] [address] [address] [address] Jessica Mosqueda Chloride [Moles/Vol] 104 mmol/L Normal 98-107 [facility] Comment on above: Performed By: #### L IPID, CMP, TSH, T7 #### [facility] [address] [place] [address] Dr. Jessica Mosqueda CO2 [Moles/Vol] 26.1 mmol/L Normal 21.0-32.0 [facility] Comment on above: Performed By: #### L IPID, CMP, TSH, T7 #### [facility] [address] [place] [address] Dr. Jessica Mosqueda Creatinine [Mass/Vol] 1.86 mg/dL Critically high 0.55-1.02 [facility] Comment on above: Performed By: #### L IPID, CMP, TSH, T7 #### [facility] [address] [address] [address] Jessica Mosqueda EGFR-AF [place] 36 mL/min/1.73m2 Critically low >=60 [facility] Comment on above: Performed By: #### L IPID, CMP, TSH, T7 #### [facility] [address] [address] [address] Jessica Mosqueda EGFR-NON AF [place] 30 mL/min/1.73m2 Critically low >=60 [facility] Comment on above: Performed By: #### L IPID, CMP, TSH, T7 #### [facility] [address] [place] [address] Dr. Jessica Mosqueda Globulin (S) [Mass/Vol] 3.4 g/dL Normal [facility] Comment on above: Performed By: #### L IPID, CMP, TSH, T7 #### [facility] [address] [address] [address] Jessica Mosqueda Glucose [Mass/Vol] 84 mg/dL Normal 74-106 [facility] Comment on above: Performed By: #### L IPID, CMP, TSH, T7 #### [facility] [address] [place] [address] Dr. Jessica Mosqueda Potassium [Moles/Vol] 4.2 mmol/L Normal 3.5-5.1 [facility] Comment on above: Performed By: #### L IPID, CMP, TSH, T7 #### [facility] [address] [address] [address] Jessica Mosqueda Protein [Mass/Vol] 7.4 g/dL Normal 6.4-8.2 [facility] Comment on above: Performed By: #### L IPID, CMP, TSH, T7 #### [facility] [address] [place] [address] Dr. Jessica Mosqueda Sodium [Moles/Vol] 139 mmol/L Normal 136-145 [facility] Comment on above: Performed By: #### L IPID, CMP, TSH, T7 #### [facility] [address] [address] [address] Jessica Mosqueda Urea nitrogen [Mass/Vol] 26.0 mg/dL Critically high 7.0-18.0 [facility] Comment on above: Performed By: #### L IPID, CMP, TSH, T7 #### [facility] [address] [address] [address] Jessica Mosqueda Urea nitrogen/Creatinine [Mass ratio] 14.0 mg/mg Normal [facility] Comment on above: Performed By: #### L IPID, CMP, TSH, T7 #### [facility] [address] [place] [address] Dr. Jessica Mosqueda UA RANDOMon 06-29-2022 Bilirubin Ql (U) Negative Normal NEGATIVE [facility] Comment on above: Performed By: #### L IPID, CMP, TSH, T7 #### [facility] [address] [address] [address] Jessica Mosqueda Clarity (U) CLEAR Normal CLEAR [facility] Comment on above: Performed By: #### L IPID, CMP, TSH, T7 #### [facility] [address] [place] [address] Dr. Jessica Mosqueda Color (U) LT. YELLOW Normal YELLOW [facility] Comment on above: Performed By: #### L IPID, CMP, TSH, T7 #### [facility] [address] [address] [address] Jessica Mosqueda Glucose Ql (U) Negative Normal NEGATIVE [facility] Comment on above: Performed By: #### L IPID, CMP, TSH, T7 #### [facility] [address] [address] [address] Jessica Mosqueda Hemoglobin Ql (U) Negative Normal NEGATIVE [facility] Comment on above: Performed By: #### L IPID, CMP, TSH, T7 #### [facility] [address] [place] [address] Dr. Jessica Mosqueda Ketones Ql (U) Negative Normal NEGATIVE [facility] Comment on above: Performed By: #### L IPID, CMP, TSH, T7 #### [facility] [address] [address] [address] Jessica Mosqueda LEUKOCYTES Negative Normal NEGATIVE [facility] Comment on above: Performed By: #### L IPID, CMP, TSH, T7 #### [facility] [address] [address] [address] Jessica Mosqueda Nitrite Ql (U) Negative Normal NEGATIVE [facility] Comment on above: Performed By: #### L IPID, CMP, TSH, T7 #### [facility] [address] [address] [address] Jessica Mosqueda pH (U) 6.0 [pH] Normal 5-9 [facility] Comment on above: Performed By: #### L IPID, CMP, TSH, T7 #### [facility] [address] [place] [address] Dr. Jessica Mosqueda SPEC GRAVITY <=1.005 Abnormal 1.005-<=1.025 [facility] Comment on above: Performed By: #### L IPID, CMP, TSH, T7 #### [facility] [address] [address] [address] Jessica Mosqueda UA PROTEIN Negative Normal NEGATIVE/ TRACE [facility] Comment on above: Performed By: #### L IPID, CMP, TSH, T7 #### [facility] [address] [address] [address] Jessica Mosqueda Urobilinogen Qn (U) 0.2 {Fran'U}/dL Normal 0.2 - 1. 0 [facility] Comment on above: Performed By: #### L IPID, CMP, TSH, T7 #### [facility] [address] [address] [address] Jessica Mosqueda PROF 14(COMP METB)on 022 Albumin [Mass/Vol] 3.9 g/dL Normal 3.4-5.0 [facility] Comment on above: Performed By: #### P THINT #### [facility] [address] [place] [address] Dr. Jessica Mosqueda Albumin/Globulin [Mass ratio] 1.1 {ratio} Normal [facility] Comment on above: Performed By: #### P THINT #### [facility] [address] [place] [address] Dr. Jessica Mosqueda ALP [Catalytic activity/Vol] 36 U/L Critically low 46-116 [facility] Comment on above: Performed By: #### P THINT #### [facility] [address] [address] [address] Jessica Mosqueda ALT [Catalytic activity/Vol] 17 U/L Normal 14-59 [facility] Comment on above: Performed By: #### P THINT #### [facility] [address] [place] [address] Dr. Jessica Mosqueda Anion gap [Moles/Vol] 13.9 mmol/L Normal [facility] Comment on above: Performed By: #### P THINT #### [facility] [address] [place] [address] Dr. Jessica Mosqueda AST [Catalytic activity/Vol] 11 U/L Critically low 15-37 [facility] Comment on above: Performed By: #### P THINT #### [facility] [address] [place] [address] Dr. Jessica Mosqueda Bilirubin [Mass/Vol] 0.3 mg/dL Normal 0.2-1.0 [facility] Comment on above: Performed By: #### P THINT #### [facility] [address] [place] [address] Dr. Jessica Mosqueda Calcium [Mass/Vol] 9.2 mg/dL Normal 8.5-10.1 [facility] Comment on above: Performed By: #### P THINT #### [facility] [address] [place] [address] Dr. Jessica Mosqueda Chloride [Moles/Vol] 105 mmol/L Normal 98-107 [facility] Comment on above: Performed By: #### P THINT #### [facility] [address] [place] [address] Dr. Jessica Mosqueda CO2 [Moles/Vol] 26.5 mmol/L Normal 21.0-32.0 [facility] Comment on above: Performed By: #### P THINT #### [facility] [address] [address] [address] Jessica Mosqueda Creatinine [Mass/Vol] 2.06 mg/dL Critically high 0.55-1.02 [facility] Comment on above: Performed By: #### P THINT #### [facility] [address] [address] [address] Jessica Mosqueda EGFR-AF [place] 32 mL/min/1.73m2 Critically low >=60 [facility] Comment on above: Performed By: #### P THINT #### [facility] [address] [address] [address] Jessica Mosqueda EGFR-NON AF [place] 27 mL/min/1.73m2 Critically low >=60 [facility] Comment on above: Performed By: #### P THINT #### [facility] [address] [address] [address] Jessica Mosqueda Globulin (S) [Mass/Vol] 3.5 g/dL Normal [facility] Comment on above: Performed By: #### P THINT #### [facility] [address] [place] [address] Dr. Jessica Mosqueda Glucose [Mass/Vol] 75 mg/dL Normal 74-106 [facility] Comment on above: Performed By: #### P THINT #### [facility] [address] [address] [address] Jessica Mosqueda Potassium [Moles/Vol] 4.4 mmol/L Normal 3.5-5.1 [facility] Comment on above: Performed By: #### P THINT #### [facility] [address] [address] [address] Jessica Mosqueda Protein [Mass/Vol] 7.4 g/dL Normal 6.4-8.2 [facility] Comment on above: Performed By: #### P THINT #### [facility] [address] [address] [address] Jessica Mosqueda Sodium [Moles/Vol] 141 mmol/L Normal 136-145 [facility] Comment on above: Performed By: #### P THINT #### [facility] [address] [address] [address] Jessica Mosqueda Urea nitrogen [Mass/Vol] 37.0 mg/dL Critically high 7.0-18.0 [facility] Comment on above: Performed By: #### P THINT #### [facility] [address] [place] [address] Dr. Jessica Mosqueda Urea nitrogen/Creatinine [Mass ratio] 18.0 mg/mg Normal [facility] Comment on above: Performed By: #### P THINT #### [facility] [address] [place] [address] Dr. Jessica Mosqueda PROF 14(COMP METB)on 022 Albumin [Mass/Vol] 3.9 g/dL Normal 3.4-5.0 [facility] Comment on above: Performed By: #### C MP #### [facility] [address] [place] [address] Dr. Jessica Mosqueda Albumin/Globulin [Mass ratio] 1.2 {ratio} Normal [facility] Comment on above: Performed By: #### C MP #### [facility] [address] [place] [address] Dr. Jessica Mosqueda ALP [Catalytic activity/Vol] 32 U/L Critically low 46-116 [facility] Comment on above: Performed By: #### C MP #### [facility] [address] [place] [address] Dr. Jessica Mosqueda ALT [Catalytic activity/Vol] 12 U/L Critically low 14-59 [facility] Comment on above: Performed By: #### C MP #### [facility] [address] [place] [address] Dr. Jessica Mosqueda Anion gap [Moles/Vol] 13.6 mmol/L Normal [facility] Comment on above: Performed By: #### C MP #### [facility] [address] [place] [address] Dr. Jessica Mosqueda AST [Catalytic activity/Vol] 15 U/L Normal 15-37 [facility] Comment on above: Performed By: #### C MP #### [facility] [address] [address] [address] Jessica Mosqueda Bilirubin [Mass/Vol] 0.2 mg/dL Normal 0.2-1.0 [facility] Comment on above: Performed By: #### C MP #### [facility] [address] [address] [address] Jessica Mosqueda Calcium [Mass/Vol] 9.2 mg/dL Normal 8.5-10.1 [facility] Comment on above: Performed By: #### C MP #### [facility] [address] [address] [address] Jessica Mosqueda Chloride [Moles/Vol] 105 mmol/L Normal 98-107 [facility] Comment on above: Performed By: #### C MP #### [facility] [address] [address] [address] Jessica Mosqueda CO2 [Moles/Vol] 26.0 mmol/L Normal 21.0-32.0 [facility] Comment on above: Performed By: #### C MP #### [facility] [address] [address] [address] Jessica Mosqueda Creatinine [Mass/Vol] 1.98 mg/dL Critically high 0.55-1.02 [facility] Comment on above: Performed By: #### C MP #### [facility] [address] [address] [address] Jessica Mosqueda EGFR-AF [place] 34 mL/min/1.73m2 Critically low >=60 [facility] Comment on above: Performed By: #### C MP #### [facility] [address] [address] [address] Jessica Mosqueda EGFR-NON AF [place] 28 mL/min/1.73m2 Critically low >=60 [facility] Comment on above: Performed By: #### C MP #### [facility] [address] [address] [address] Jesisca Mosqueda Globulin (S) [Mass/Vol] 3.3 g/dL Normal [facility] Comment on above: Performed By: #### C MP #### [facility] [address] [address] [address] Jessica Mosqueda Glucose [Mass/Vol] 93 mg/dL Normal 74-106 [facility] Comment on above: Performed By: #### C MP #### [facility] [address] [address] [address] Jessica Mosqueda Potassium [Moles/Vol] 4.6 mmol/L Normal 3.5-5.1 [facility] Comment on above: Performed By: #### C MP #### [facility] [address] [address] [address] Jessica Mosqueda Protein [Mass/Vol] 7.2 g/dL Normal 6.4-8.2 [facility] [facility] Comment on above: Performed By: #### C MP #### [facility] [address] [address] [address] Jessica Mosqueda Sodium [Moles/Vol] 140 mmol/L Normal 136-145 [facility] Comment on above: Performed By: #### C MP #### [facility] [address] [address] [address] Jessica Mosqueda Urea nitrogen [Mass/Vol] 23.0 mg/dL Critically high 7.0-18.0 [facility] Comment on above: Performed By: #### C MP #### [facility] [address] [address] [address] Jessica Mosqueda Urea nitrogen/Creatinine [Mass ratio] 11.6 mg/mg Normal [facility] Comment on above: Performed By: #### C MP #### [facility] [address] [address] [address] Jessica Mosqueda PTH INTACTon 03-23-2022 PTH, Intact 71 pg/mL Critically high 15-65 [facility] Comment on above: Performed By: #### P THINT #### [facility] [address] [address] [address] Jessica Mosqueda HEMOGRAM AND PLATELon 2021 Hematocrit (Bld) [Volume fraction] 37.8 % Normal 36.0-48.0 [facility] Comment on above: Performed By: #### H H #### [facility] [address] [place] [address] Dr. Jessica Mosqueda Hemoglobin (Bld) [Mass/Vol] 12.3 g/dL Normal 12.0-16.0 [facility] Comment on above: Performed By: #### H H #### [facility] [address] [place] [address] Dr. Jessica Mosqueda MCH (RBC) [Entitic mass] 29.6 pg Normal 26.7-34.0 [facility] Comment on above: Performed By: #### H H #### [facility] [address] [place] [address] Dr. Jessica Mosqueda MCHC (RBC) [Mass/Vol] 32.5 g/dL Normal 29.9-35.2 [facility] Comment on above: Performed By: #### H H #### [facility] [address] [place] [address] Dr. Jessica Mosqueda MCV (RBC) [Entitic vol] 90.9 fL Normal 81.0-99.0 [facility] Comment on above: Performed By: #### H H #### [facility] [address] [place] [address] Dr. Jessica Mosqueda PLT 158 103/ul Normal 150-450 [facility] Comment on above: Performed By: #### H H #### [facility] [address] [place] [address] Dr. Jessica Mosqueda RBC 4.16 106/ul Critically low 4.20-5.40 [facility] Comment on above: Performed By: #### H H #### [facility] [address] [place] [address] Dr. Jessica Mosqueda WBC 10.3 103/ul Normal 4.0-11.0 [facility] Comment on above: Performed By: #### H H #### [facility] [address] [place] [address] Dr. Jessica Mosqueda PHOSPHORUSon 03-22-2022 Phosphate [Mass/Vol] 4.7 mg/dL Normal 2.6-4.7 [facility] Comment on above: Performed By: #### L IPID, CMP, TSH, T7 #### [facility] [address] [place] [address] Dr. Jessica Mosqueda PROF 14(COMP METB)on 022 Albumin [Mass/Vol] 4.1 g/dL Normal 3.4-5.0 [facility] Comment on above: Performed By: #### L IPID, CMP, TSH, T7 #### [facility] [address] [place] [address] Dr. Jessica Mosqueda Albumin/Globulin [Mass ratio] 1.2 {ratio} Normal [facility] Comment on above: Performed By: #### L IPID, CMP, TSH, T7 #### [facility] [address] [place] [address] Dr. Jessica Mosqueda ALP [Catalytic activity/Vol] 36 U/L Critically low 46-116 [facility] Comment on above: Performed By: #### L IPID, CMP, TSH, T7 #### [facility] [address] [place] [address] Dr. Jessica Mosqueda ALT [Catalytic activity/Vol] 16 U/L Normal 14-59 [facility] Comment on above: Performed By: #### L IPID, CMP, TSH, T7 #### [facility] [address] [place] [address] Dr. Jessica Mosqueda Anion gap [Moles/Vol] 15.4 mmol/L Normal [facility] Comment on above: Performed By: #### L IPID, CMP, TSH, T7 #### [facility] [address] [place] [address] Dr. Jessica Mosqueda AST [Catalytic activity/Vol] 12 U/L Critically low 15-37 [facility] Comment on above: Performed By: #### L IPID, CMP, TSH, T7 #### [facility] [address] [place] [address] Dr. Jessica Mosqueda Bilirubin [Mass/Vol] 0.6 mg/dL Normal 0.2-1.0 [facility] Comment on above: Performed By: #### L IPID, CMP, TSH, T7 #### [facility] [address] [address] [address] Jessica Mosqueda Calcium [Mass/Vol] 9.3 mg/dL Normal 8.5-10.1 [facility] Comment on above: Performed By: #### L IPID, CMP, TSH, T7 #### [facility] [address] [address] [address] Jessica Mosqueda Chloride [Moles/Vol] 103 mmol/L Normal 98-107 [facility] Comment on above: Performed By: #### L IPID, CMP, TSH, T7 #### [facility] [address] [place] [address] Dr. Jessica Mosqueda CO2 [Moles/Vol] 24.4 mmol/L Normal 21.0-32.0 [facility] Comment on above: Performed By: #### L IPID, CMP, TSH, T7 #### [facility] [address] [address] [address] Jessica Mosqueda Creatinine [Mass/Vol] 2.04 mg/dL Critically high 0.55-1.02 [facility] Comment on above: Performed By: #### L IPID, CMP, TSH, T7 #### [facility] [address] [place] [address] Dr. Jessica Mosqueda EGFR-AF EAST [place] 33 mL/min/1.73m2 Critically low >=60 [facility] Comment on above: Performed By: #### L IPID, CMP, TSH, T7 #### [facility] [address] [place] [address] Dr. Jessica Mosqueda EGFR-NON AF [place] 27 mL/min/1.73m2 Critically low >=60 [facility] Comment on above: Performed By: #### L IPID, CMP, TSH, T7 #### [facility] [address] [place] [address] Dr. Jessica Mosqueda Globulin (S) [Mass/Vol] 3.3 g/dL Normal [facility] Comment on above: Performed By: #### L IPID, CMP, TSH, T7 #### [facility] [address] [address] [address] Jessica Mosqueda Glucose [Mass/Vol] 84 mg/dL Normal 74-106 [facility] Comment on above: Performed By: #### L IPID, CMP, TSH, T7 #### [facility] [address] [address] [address] Jessica Mosqueda Potassium [Moles/Vol] 3.8 mmol/L Normal 3.5-5.1 [facility] Comment on above: Performed By: #### L IPID, CMP, TSH, T7 #### [facility] [address] [place] [address] Dr. Jessica Mosqueda Protein [Mass/Vol] 7.4 g/dL Normal 6.4-8.2 [facility] Comment on above: Performed By: #### L IPID, CMP, TSH, T7 #### [facility] [address] [place] [address] Dr. Jessica Mosqueda Sodium [Moles/Vol] 139 mmol/L Normal 136-145 [facility] Comment on above: Performed By: #### L IPID, CMP, TSH, T7 #### [facility] [address] [place] [address] Dr. Jessica Mosqueda Urea nitrogen [Mass/Vol] 30.0 mg/dL Critically high 7.0-18.0 [facility] Comment on above: Performed By: #### L IPID, CMP, TSH, T7 #### [facility] [address] [place] [address] Dr. Jessica Mosqueda Urea nitrogen/Creatinine [Mass ratio] 14.7 mg/mg Normal [facility] Comment on above: Performed By: #### L IPID, CMP, TSH, T7 #### [facility] [address] [place] [address] Dr. Jessica Mosqueda UA RANDOMon 03-22-2022 Bilirubin Ql (U) Negative Normal NEGATIVE [facility] Comment on above: Performed By: #### L IPID, CMP, TSH, T7 #### [facility] [address] [place] [address] Dr. Jessica Mosqueda Clarity (U) CLEAR Normal CLEAR [facility] Comment on above: Performed By: #### L IPID, CMP, TSH, T7 #### [facility] [address] [address] [address] Jessica Mosqueda Color (U) LT. YELLOW Normal YELLOW [facility] Comment on above: Performed By: #### L IPID, CMP, TSH, T7 #### [facility] [address] [address] [address] Jessica Mosqueda Glucose Ql (U) Negative Normal NEGATIVE [facility] Comment on above: Performed By: #### L IPID, CMP, TSH, T7 #### [facility] [address] [address] [address] Jessica Mosqueda Hemoglobin Ql (U) Negative Normal NEGATIVE [facility] Comment on above: Performed By: #### L IPID, CMP, TSH, T7 #### [facility] [address] [address] [address] Jessica Mosqueda Ketones Ql (U) Negative Normal NEGATIVE [facility] Comment on above: Performed By: #### L IPID, CMP, TSH, T7 #### [facility] [address] [address] [address] Jessica Mosqueda LEUKOCYTES Negative Normal NEGATIVE [facility] Comment on above: Performed By: #### L IPID, CMP, TSH, T7 #### [facility] [address] [address] [address] Jessica Mosqueda Nitrite Ql (U) Negative Normal NEGATIVE [facility] Comment on above: Performed By: #### L IPID, CMP, TSH, T7 #### [facility] [address] [address] [address] Jessica Mosqueda pH (U) 5.5 [pH] Normal 5-9 [facility] Comment on above: Performed By: #### L IPID, CMP, TSH, T7 #### [facility] [address] [address] [address] Jessica Mosqueda SPEC GRAVITY 1.005 Normal 1.005-<=1.025 [facility] Comment on above: Performed By: #### L IPID, CMP, TSH, T7 #### [facility] [address] [place] [address] Dr. Jessica Mosqueda UA PROTEIN Negative Normal NEGATIVE/ TRACE [facility] Comment on above: Performed By: #### L IPID, CMP, TSH, T7 #### [facility] [address] [place] [address] Dr. Jessica Mosqueda Urobilinogen Qn (U) 0.2 {Fran'U}/dL Normal 0.2 - 1. 0 [facility] Comment on above: Performed By: #### L IPID, CMP, TSH, T7 #### [facility] [address] [place] [address] Dr. Jessica Mosqueda URINE T PROTEIN CREAT RATIOo n 03-22-2022 UR TOTAL PROTEIN <6.0 Normal <=12.0 [facility] Comment on above: Performed By: #### L IPID, CMP, TSH, T7 #### [facility] [address] [place] [address] Dr. Jessica Mosqueda URINE CREAT 23.46 mg/dL Normal 20.00-300.00 [facility] Comment on above: Performed By: #### L IPID, CMP, TSH, T7 #### [facility] [address] [place] [address] Dr. Jessica Mosqueda PROF 14(COMP METB)on 022 Albumin [Mass/Vol] 3.8 g/dL Normal 3.4-5.0 [facility] Comment on above: Performed By: #### L IPID, CMP, TSH, T7 #### [facility] [address] [place] [address] Dr. Jessica Mosqueda Albumin/Globulin [Mass ratio] 1.3 {ratio} Normal [facility] Comment on above: Performed By: #### L IPID, CMP, TSH, T7 #### [facility] [address] [place] [address] Dr. Jessica Mosqueda ALP [Catalytic activity/Vol] 35 U/L Critically low 46-116 [facility] Comment on above: Performed By: #### L IPID, CMP, TSH, T7 #### [facility] [address] [place] [address] Dr. Jessica Mosqueda ALT [Catalytic activity/Vol] 17 U/L Normal 14-59 [facility] Comment on above: Performed By: #### L IPID, CMP, TSH, T7 #### [facility] [address] [place] [address] Dr. Jessica Mosqueda Anion gap [Moles/Vol] 12.2 mmol/L Normal [facility] Comment on above: Performed By: #### L IPID, CMP, TSH, T7 #### [facility] [address] [address] [address] Jessica Mosqueda AST [Catalytic activity/Vol] 13 U/L Critically low 15-37 [facility] Comment on above: Performed By: #### L IPID, CMP, TSH, T7 #### [facility] [address] [place] [address] Dr. Jessica Mosqueda Bilirubin [Mass/Vol] 0.4 mg/dL Normal 0.2-1.0 [facility] Comment on above: Performed By: #### L IPID, CMP, TSH, T7 #### [facility] [address] [place] [address] Dr. Jessica Mosqueda Calcium [Mass/Vol] 8.6 mg/dL Normal 8.5-10.1 [facility] Comment on above: Performed By: #### L IPID, CMP, TSH, T7 #### [facility] [address] [place] [address] Dr. Jessica Mosqueda Chloride [Moles/Vol] 106 mmol/L Normal 98-107 [facility] Comment on above: Performed By: #### L IPID, CMP, TSH, T7 #### [facility] [address] [place] [address] Dr. Jessica Mosqueda CO2 [Moles/Vol] 26.1 mmol/L Normal 21.0-32.0 [facility] Comment on above: Performed By: #### L IPID, CMP, TSH, T7 #### [facility] [address] [place] [address] Dr. Jessica Mosqueda Creatinine [Mass/Vol] 1.76 mg/dL Critically high 0.55-1.02 [facility] Comment on above: Performed By: #### L IPID, CMP, TSH, T7 #### [facility] [address] [address] [address] Jessica Mosqueda EGFR-AF [place] 39 mL/min/1.73m2 Critically low >=60 [facility] Comment on above: Performed By: #### L IPID, CMP, TSH, T7 #### [facility] [address] [address] [address] Jessica Mosqueda EGFR-NON AF [place] 32 mL/min/1.73m2 Critically low >=60 [facility] Comment on above: Performed By: #### L IPID, CMP, TSH, T7 #### [facility] [address] [address] [address] Jessica Mosqueda Globulin (S) [Mass/Vol] 3.0 g/dL Normal [facility] Comment on above: Performed By: #### L IPID, CMP, TSH, T7 #### [facility] [address] [address] [address] Jessica Mosqueda Glucose [Mass/Vol] 81 mg/dL Normal 74-106 [facility] Comment on above: Performed By: #### L IPID, CMP, TSH, T7 #### [facility] [address] [address] [address] Jessica Mosqueda Potassium [Moles/Vol] 4.3 mmol/L Normal 3.5-5.1 [facility] Comment on above: Performed By: #### L IPID, CMP, TSH, T7 #### [facility] [address] [address] [address] Jessica Mosqueda Protein [Mass/Vol] 6.8 g/dL Normal 6.4-8.2 [facility] Comment on above: Performed By: #### L IPID, CMP, TSH, T7 #### [facility] [address] [address] [address] Jessica Mosqueda Sodium [Moles/Vol] 140 mmol/L Normal 136-145 [facility] Comment on above: Performed By: #### L IPID, CMP, TSH, T7 #### [facility] [address] [address] [address] Jessica Mosqueda Urea nitrogen [Mass/Vol] 20.0 mg/dL Critically high 7.0-18.0 [facility] Comment on above: Performed By: #### L IPID, CMP, TSH, T7 #### [facility] [address] [address] [address] Jessica Mosqueda Urea nitrogen/Creatinine [Mass ratio] 11.4 mg/mg Normal [facility] Comment on above: Performed By: #### L IPID, CMP, TSH, T7 #### [facility] [address] [place] [address] Dr. Jessica Mosqueda PROF 14(COMP METB)on 022 Albumin [Mass/Vol] 4.0 g/dL Normal 3.4-5.0 [facility] Comment on above: Performed By: #### L IPID, CMP, TSH, T7 #### [facility] [address] [place] [address] Dr. Jessica Mosqueda Albumin/Globulin [Mass ratio] 1.2 {ratio} Normal [facility] Comment on above: Performed By: #### L IPID, CMP, TSH, T7 #### [facility] [address] [place] [address] Dr. Jessica Mosqueda ALP [Catalytic activity/Vol] 31 U/L Critically low 46-116 [facility] Comment on above: Performed By: #### L IPID, CMP, TSH, T7 #### [facility] [address] [place] [address] Dr. Jessica Mosqueda ALT [Catalytic activity/Vol] 19 U/L Normal 14-59 [facility] Comment on above: Performed By: #### L IPID, CMP, TSH, T7 #### [facility] [address] [place] [address] Dr. Jessica Mosqueda Anion gap [Moles/Vol] 13.7 mmol/L Normal [facility] Comment on above: Performed By: #### L IPID, CMP, TSH, T7 #### [facility] [address] [address] [address] Jessica Mosqueda AST [Catalytic activity/Vol] 12 U/L Critically low 15-37 [facility] Comment on above: Performed By: #### L IPID, CMP, TSH, T7 #### [facility] [address] [place] [address] Dr. Jessica Mosqueda Bilirubin [Mass/Vol] 0.3 mg/dL Normal 0.2-1.0 [facility] Comment on above: Performed By: #### L IPID, CMP, TSH, T7 #### [facility] [address] [address] [address] Jessica Mosqueda Calcium [Mass/Vol] 9.3 mg/dL Normal 8.5-10.1 [facility] Comment on above: Performed By: #### L IPID, CMP, TSH, T7 #### [facility] [address] [place] [address] Dr. Jessica Mosqueda Chloride [Moles/Vol] 106 mmol/L Normal 98-107 [facility] Comment on above: Performed By: #### L IPID, CMP, TSH, T7 #### [facility] [address] [place] [address] Dr. Jessica Mosqueda CO2 [Moles/Vol] 25.4 mmol/L Normal 21.0-32.0 [facility] Comment on above: Performed By: #### L IPID, CMP, TSH, T7 #### [facility] [address] [address] [address] Jessica Mosqueda Creatinine [Mass/Vol] 1.84 mg/dL Critically high 0.55-1.02 [facility] Comment on above: Performed By: #### L IPID, CMP, TSH, T7 #### [facility] [address] [place] [address] Dr. Jessica Mosqueda EGFR-AF [place] 37 mL/min/1.73m2 Critically low >=60 [facility] Comment on above: Performed By: #### L IPID, CMP, TSH, T7 #### [facility] [address] [address] [address] Jessica Mosqueda EGFR-NON AF [place] 30 mL/min/1.73m2 Critically low >=60 [facility] Comment on above: Performed By: #### L IPID, CMP, TSH, T7 #### [facility] [address] [address] [address] Jessica Mosqueda Globulin (S) [Mass/Vol] 3.4 g/dL Normal [facility] Comment on above: Performed By: #### L IPID, CMP, TSH, T7 #### [facility] [address] [address] [address] Jessica Mosqueda Glucose [Mass/Vol] 99 mg/dL Normal 74-106 [facility] Comment on above: Performed By: #### L IPID, CMP, TSH, T7 #### [facility] [address] [place] [address] Dr. Jessica Mosqueda Potassium [Moles/Vol] 4.1 mmol/L Normal 3.5-5.1 [facility] Comment on above: Performed By: #### L IPID, CMP, TSH, T7 #### [facility] [address] [address] [address] Jessica Mosqueda Protein [Mass/Vol] 7.4 g/dL Normal 6.4-8.2 [facility] Comment on above: Performed By: #### L IPID, CMP, TSH, T7 #### [facility] [address] [address] [address] Jessica Mosqueda Sodium [Moles/Vol] 141 mmol/L Normal 136-145 [facility] Comment on above: Performed By: #### L IPID, CMP, TSH, T7 #### [facility] [address] [address] [address] Jessica Mosqueda Urea nitrogen [Mass/Vol] 25.0 mg/dL Critically high 7.0-18.0 [facility] Comment on above: Performed By: #### L IPID, CMP, TSH, T7 #### [facility] [address] [address] [address] Jessica Mosqueda Urea nitrogen/Creatinine [Mass ratio] 13.6 mg/mg Normal [facility] Comment on above: Performed By: #### L IPID, CMP, TSH, T7 #### [facility] [address] [address] [address] Jessica Mosqueda CNOVSPon 09-04-2019 CNOVSP Visit (SP) Office ([facility]) CHULAISABEL LEDBETTER ([id number]) 1980 F Date Time Provider Department 09/04/19 3:45 PM LUIS ANGEL HALL During your visit today, we recorded the following information about you: Temperature Pulse Respiration Blood pressure 97.6 degrees 66/minute 18/minute 115/66 Weight Height 82.2 kg 1.676 m Luis Angel Hall DO 09/06/2019 9:21 AM Signed PATIENT NAME: Isabel Rivera REFERRING PHYSICIAN: Timothy Mills MD [address] [place] [address] [place] [id number] PRIMARY CARE PHYSICIAN: Maren James MD CHIEF [...] did not have a lupus anticoagulant. 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 She had negative [...] 2017. Right posterior tibial vein and associated reel tender veins. Follows with Dr. Bateman, vascular. She does exercise slightly 3 days a week and works a [employer] in [facility]. Medications as of September 2017 included only [...] questions satisfactorily.. Ankit Hall D.O. Medical Oncologist [place], [place] Cc. Dr. Bateman. Referring Provider: LUIS ANGEL HALL [[id number]] Allergies As of Date: 09/04/2019 Noted Allergy [...] LUIS ANGEL HALL DO on 09/06/19 Normal [facility] PROGRESSon 09-04-2019 PROGRESS HNO ID: [id number] Author: Luis Angel Hall Service: ? Author Type: Physician Type: Progress Notes Filed: 09/06/2019 9:21 AM Note Text: PATIENT NAME: sIabel Rivera REFERRING PHYSICIAN: Timothy Mills MD [address] [place] [address] [place] [id number] PRIMARY CARE PHYSICIAN: Maren James MD CHIEF [...] did not have a lupus anticoagulant. 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 She had negative [...] 2017. Right posterior tibial vein and associated reel tender veins. Follows with Dr. Bateman, vascular. She does exercise slightly 3 days a week and works a [employer] in [facility]. Medications as of September 2017 included only [...] questions satisfactorily.. Ankit Hall D.O. Medical Oncologist [place], [place] Cc. Dr. Bateman. [facility] CNOVSPon 07-30-2019 CNOVSP Visit (SP) Office ([place]) ISABEL RIVERA ([id number]) 1980 F Date Time Provider Department 07/30/19 3:45 PM LUIS ANGEL HALL During your visit today, we recorded the following information about you: Temperature Pulse Respiration Blood pressure 98.4 degrees 61/minute 16/minute 107/69 Weight Height 80.6 kg 1.676 m Luis Angel Hall, 08/02/2019 11:50 AM Signed PATIENT NAME: Isabel Rivera REFERRING PHYSICIAN: Timothy Mills MD [address] [place] [address] [place] [address] PRIMARY CARE PHYSICIAN: Maren James MD CHIEF [...] TIBC - CBC + DIFF (FOR REMOTE [facility] USE) - BASIC METABOLIC PNL - [...] 2017. Right posterior tibial vein and associated reel tender veins. Follows with Dr. Bateman, vascular. She does exercise slightly 3 days a week and works a [employer] in [facility]. Medications as of September 2017 included only [...] questions satisfactorily.. Ankit Hall D.O. Medical Oncologist [place], [place] Cc. Dr. Bateman. Referring Provider: TIMOTHY MILLS [[id number]] Allergies As of Date: 07/30/2019 (Not on File) Date Reviewed: 07/30/2019 Reviewed by: Lavonne Borrego - Fully Assessed Reason for Visit: Consult [173] Primary Visit Diagnosis:Acute deep vein thrombosis (DVT) of proximal vein of both lower extremities (HCC) [I82.4Y3] Order(s): LEG VEIN DVT [facility] [[id number]] Order #: [id number] FUTURE FACTOR V LEIDEN/PCR [SQFVLEID] Order #: [id number] FUTURE PROTHROMBIN GENE PCR [SQPTGENE] Order #: [id number] FUTURE PROTEIN C FUNCT [SQPRCFUN] Order #: [id number] FUTURE PROTEIN S CLOTTABLE [SQPRSCLT] Order #: [id number] FUTURE ANTITHROMBIN ACTIVITY [[id number]] Order #: [id number] FUTURE LUPUS ANTICOAG PL [SQLUPUSP] Order #: [id number] FUTURE B 2 GPI IGG AND IGM [[id number]] Order #: [id number] FUTURE ANTI-CARDIOLIPIN AB [SQCARDIO] Order #: [id number] FUTURE HOMOCYSTEINE [SQHOMCYS] Order #: [id number] FUTURE FERRITIN BLD [SQFERR] Order #: [id number] FUTURE IRON + TIBC [SQIRON] Order #: [id number] FUTURE CBC + DIFF (FOR REMOTE [facility] USE) [SQRCBCDF] Order #: [id number] FUTURE BASIC METABOLIC PNL [SQBMP] Order #: [id number] FUTURE HEPATIC FUNCTION PNL [SQHFP] Order #: [id number] FUTURE Disposition: Return labs today. f/u 4 [...] by LUIS ANGEL HALL DO on 08/02/19 [facility] PROGRESSon 07-30-2019 PROGRESS HNO ID: [id number] Author: Luis Angel Hall Service: ? Author Type: Physician Type: Progress Notes Filed: 08/02/2019 11:50 AM Note Text: PATIENT NAME: Isabel Rivera REFERRING PHYSICIAN: Timothy Mills MD [address] [place] [address] [place] [address] PRIMARY CARE PHYSICIAN: Maren James MD CHIEF [...] 2017. Right posterior tibial vein and associated reel tender veins. Follows with Dr. Bateman, vascular. She does exercise slightly 3 days a week and works a [employer] in [employer]. Medications as of September 2017 included only [...] questions satisfactorily.. Ankit Hall D.O. Medical Oncologist [facility] [place], [place] Cc. Dr. Bateman. Normal [facility] Vital Signs Date Time Vital Sign Value Performing Clinician Facility 01-10-2024 15:58-0400 Body height 167.64 cm [facility] 01-10-2024 15:58-0400 Body mass index (BMI) [Ratio] 33.5 kg/m2 [facility] 01-10-2024 15:58-0400 Body temperature 97.2 [degF] [facility] 01-10-2024 15:58-0400 Body weight 94.34 kg [facility] 01-10-2024 15:58-0400 Diastolic blood pressure 84 mm[Hg] [facility] 01-10-2024 15:58-0400 Heart rate 68 /min [facility] 01-10-2024 15:58-0400 Respiratory rate 16 /min [facility] 01-10-2024 15:58-0400 SaO2% (BldA) [Mass fraction] 100 % [facility] 01-10-2024 15:58-0400 Systolic blood pressure 130 mm[Hg] [facility] 10-11-2023 15:51-0500 Body height 167.64 cm [facility] 10-11-2023 15:51-0500 Body mass index (BMI) [Ratio] 33.6 kg/m2 [facility] 10-11-2023 15:51-0500 Body temperature 97.9 [degF] [facility] 10-11-2023 15:51-0500 Body weight 94.57 kg [facility] 10-11-2023 15:51-0500 Diastolic blood pressure 81 mm[Hg] [facility] 10-11-2023 15:51-0500 Heart rate 72 /min [facility] 10-11-2023 15:51-0500 Respiratory rate 16 /min [facility] 10-11-2023 15:51-0500 SaO2% (BldA) [Mass fraction] 100 % [facility] 10-11-2023 15:51-0500 Systolic blood pressure 127 mm[Hg] [facility] 06-28-2023 16:00-0500 Body height 172.72 cm Maeve Tiffanie Other [facility] Other 06-28-2023 16:00-0500 Body mass index (BMI) [Ratio] 31.35 kg/m2 Maeve Tiffanie Other [facility] Other 06-28-2023 16:00-0500 Body temperature 97.3 [degF] Sekouparam Tiffanie Other [facility] Other 06-28-2023 16:00-0500 Body weight 93.53 kg Maeve Tiffanie Other [facility] Other 06-28-2023 16:00-0500 Diastolic blood pressure 87 mm[Hg] Maeve Moreno Other [facility] Other 06-28-2023 16:00-0500 Respiratory rate 18 /min Mae[facility] Moreno Other [facility] Other 06-28-2023 16:00-0500 SaO2% (BldA) [Mass fraction] 98 % Mae[facility] Moreno Other [facility] Other 06-28-2023 16:00-0500 Systolic blood pressure 141 mm[Hg] Maeve Moreno Other [facility] Other 04-05-2023 16:00-0400 Body height 172.72 cm Maeve Moreno Other [facility] Other 04-05-2023 16:00-0400 Body mass index (BMI) [Ratio] 31.23 kg/m2 Mae[facility] Moreno Other [facility] Other 04-05-2023 16:00-0400 Body temperature 96.4 [degF] Mae[facility] Moreno Other [facility] Other 04-05-2023 16:00-0400 Body weight 93.17 kg Maeve Moreno Other [facility] Other 04-05-2023 16:00-0400 Diastolic blood pressure 85 mm[Hg] Mae[facility] Moreno Other [facility] Other 04-05-2023 16:00-0400 Respiratory rate 18 /min Maeve Sahnidank Other [facility] Other 04-05-2023 16:00-0400 SaO2% (BldA) [Mass fraction] 99 % Maeve Moreno Other [facility] Other 04-05-2023 16:00-0400 Systolic blood pressure 134 mm[Hg] Maeve Moreno Other [facility] Other 12-21-2022 17:00-0400 Body height 172.72 cm Maeve Moreno Other [facility] Other 12-21-2022 17:00-0400 Body mass index (BMI) [Ratio] 31.14 kg/m2 Mae[facility] Moreno Other [facility] Other 12-21-2022 17:00-0400 Body temperature 96.5 [degF] Mae[facility] Moreno Other [facility] Other 12-21-2022 17:00-0400 Body weight 92.9 kg Maeve Moreno Other [facility] Other 12-21-2022 17:00-0400 Diastolic blood pressure 84 mm[Hg] Maeve Moreno Other [facility] Other 12-21-2022 17:00-0400 Respiratory rate 18 /min Maeve Moreno Other [facility] Other 12-21-2022 17:00-0400 SaO2% (BldA) [Mass fraction] 98 % Maeve Moreno Other [facility] Other 12-21-2022 17:00-0400 Systolic blood pressure 138 mm[Hg] Maeve Moreno Other [facility] Other 09-28-2022 17:00-0500 Body height 172.72 cm Maeve Moreno Other [facility] Other 09-28-2022 17:00-0500 Body mass index (BMI) [Ratio] 31.11 kg/m2 Maeve Moreno Other [facility] Other 09-28-2022 17:00-0500 Body temperature 98.2 [degF] Mae[facility] Moreno Other [facility] Other 09-28-2022 17:00-0500 Body weight 92.81 kg Maeve Moreno Other [facility] Other 09-28-2022 17:00-0500 Diastolic blood pressure 94 mm[Hg] Maeve Moreno Other [facility] Other 09-28-2022 17:00-0500 Respiratory rate 18 /min Maeve Moreno Other [facility] Other 09-28-2022 17:00-0500 SaO2% (BldA) [Mass fraction] 98 % Maeve Moreno Other [facility] Other 09-28-2022 17:00-0500 Systolic blood pressure 144 mm[Hg] Maeve Moreno Other [facility] Other 07-06-2022 17:00-0500 Body height 172.72 cm Maeve Moreno Other [facility] Other 07-06-2022 17:00-0500 Body mass index (BMI) [Ratio] 30.32 kg/m2 Maeve Moreno Other [facility] Other 07-06-2022 17:00-0500 Body temperature 97.1 [degF] Mae[facility] Moreno Other [facility] Other 07-06-2022 17:00-0500 Body weight 90.45 kg Maeve Moreno Other [facility] Other 07-06-2022 17:00-0500 Diastolic blood pressure 87 mm[Hg] Maeve Moreno Other [facility] Other 07-06-2022 17:00-0500 Respiratory rate 18 /min Maeve Moreno Other [facility] Other 07-06-2022 17:00-0500 SaO2% (BldA) [Mass fraction] 99 % Maeve Moreno Other [facility] Other 07-06-2022 17:00-0500 Systolic blood pressure 128 mm[Hg] Maeve Moreno Other [facility] Other 03-23-2022 16:40-0400 Body height 172.72 cm Maeve Moreno Other [facility] Other 03-23-2022 16:40-0400 Body mass index (BMI) [Ratio] 30.47 kg/m2 Maeve Moreno Other [facility] Other 03-23-2022 16:40-0400 Body temperature 96.9 [degF] Maeve Moreno Other [facility] Other 03-23-2022 16:40-0400 Body weight 90.9 kg Maeve Moreno Other [facility] Other 03-23-2022 16:40-0400 Diastolic blood pressure 80 mm[Hg] Maeve Moreno Other [facility] Other 03-23-2022 16:40-0400 Respiratory rate 18 /min Maeve Moreno Other [facility] Other 03-23-2022 16:40-0400 SaO2% (BldA) [Mass fraction] 99 % Maeve Moreno Other [facility] Other 03-23-2022 16:40-0400 Systolic blood pressure 116 mm[Hg] Maeve Moreno Other [facility] Other 08-09-2021 17:00-0500 Body height 172.72 cm Maeve Moreno Other [facility] Other 08-09-2021 17:00-0500 Body mass index (BMI) [Ratio] 30.53 kg/m2 Maeve Moreno Other [facility] Other 08-09-2021 17:00-0500 Body weight 91.08 kg Maeve Moreno Other [facility] Other 08-09-2021 17:00-0500 Diastolic blood pressure 80 mm[Hg] Maeve Moreno Other [facility] Other 08-09-2021 17:00-0500 Respiratory rate 18 /min Maeve Moreno Other [facility] Other 08-09-2021 17:00-0500 SaO2% (BldA) [Mass fraction] 99 % Maeve Moreno Other [facility] Other 08-09-2021 17:00-0500 Systolic blood pressure 142 mm[Hg] Maeve Moreno Other [facility] Other Encounters Encounter Date Encounter Type Care Provider Facility Start: 01-10-2024 End: 01-10-2024 ambulatory [facility] Work Phone: Start: 01-10-2024 End: 01-10-2024 Patient encounter procedure [facility] Work Phone: Start: 10-11-2023 End: 10-11-2023 ambulatory [facility] Work Phone: Start: 10-11-2023 End: 10-11-2023 Patient encounter procedure [facility] Work Phone: Start: 06-28-2023 End: 06-28-2023 ambulatory Maeve Moreno Other [facility] Other Start: 06-28-2023 Office outpatient vi sit 15 minutes Essam Elashi [facility] Start: 06-26-2023 End: 06-26-2023 ambulatory Maeve Moreno Other [facility] Other Start: 06-26-2023 Telephone encounter Maeve Sahniashi [facility] Start: 05-07-2023 End: 05-07-2023 ambulatory Maeve Moreno Other [facility] Other Start: 05-07-2023 Telephone encounter Maeve Sahniashi [facility] Start: 04-05-2023 End: 04-05-2023 ambulatory Maeve Sahniashi Other [facility] Other Start: 04-05-2023 Office outpatient vi sit 25 minutes Essam Elashi [facility] Start: 03-27-2023 End: 03-27-2023 ambulatory Maeve Moreno Other [facility] Other Start: 03-27-2023 Telephone encounter Maeve Sahnidank [facility] Start: 03-12-2023 End: 03-12-2023 ambulatory Maeve Moreno Other [facility] Other Start: 03-12-2023 Telephone encounter Maeve Sahnidank [facility] Start: 12-21-2022 End: 12-21-2022 ambulatory Maeve Moreno Other [facility] Other Start: 12-21-2022 Office outpatient vi sit 25 minutes Sekouparam Tiffanie [facility] Start: 12-18-2022 End: 12-18-2022 ambulatory Maeve Moreno Other [facility] Other Start: 12-18-2022 Telephone encounter Maeve Sahnidank [facility] Start: 12-13-2022 End: 12-14-[address] MAEVE MORENO Facility:[facility] Start: 11-14-2022 End: 11-15-[address] MAREN JAMES . Facility:[facility] Start: 11-13-2022 Encounter for genera l adult medical examination without abnormal findings DR MAREN JAMES . [facility] Start: 11-10-2022 End: 11-11-[address] MAREN JAMES . Facility:[facility] Start: 11-10-2022 End: 11-11-2022 Encounter for general adult medical examination without abnormal findings DR MAREN JAMES . Facility:[facility] Start: 09-28-2022 End: 09-28-2022 ambulatory Maeve Moreno Other [facility] Other Start: 09-28-2022 Office outpatient vi sit 25 minutes Maeve Moreno [facility] Start: 09-26-2022 End: 09-27-[address] MAEVE MORENO Facility:[facility] Start: 07-06-2022 End: 07-06-2022 ambulatory Maeve Moreno Other [facility] Other Start: 07-06-2022 Office outpatient vi sit 25 minutes Maeve Moreno [facility] Start: 07-04-2022 End: 07-04-2022 ambulatory Maeve Moreno Other [facility] Other Start: 07-04-2022 Telephone encounter Maeve Moreno [facility] Start: 06-29-2022 End: 06-30-[address] MAEVE MORENO Facility:[facility] Start: 05-25-2022 End: 05-26-[address] MAEVE MORENO Facility:[facility] Start: 04-25-2022 End: 04-26-[address] MAEVE MORENO Facility:[facility] Start: 04-17-2022 End: 04-17-2022 ambulatory Maeve Moreno Other [facility] Other Start: 04-17-2022 Telephone encounter Sekouparam Tiffanie [facility] Start: 03-23-2022 End: 03-23-2022 ambulatory Maeve Moreno Other [facility] Other Start: 03-23-2022 Office outpatient vi sit 25 minutes Maeve Moreno [facility] Start: 03-22-2022 End: 03-23-[address] MAEVE MORENO Facility:[facility] Start: 02-06-2022 End: 02-07-[address] MAEVE MORENO Facility:[facility] Start: 01-13-2022 End: 01-14-[address] MAEVE MORENO [employer] Other Start: 01-13-2022 Telephone encounter Maeve Moreno [facility] Start: 10-04-2021 End: 10-04-2021 ambulatory Maeve Moreno Other [facility] Other Start: 10-04-2021 Telephone encounter Essam Elashi [facility] Start: 09-14-2021 End: 09-14-2021 ambulatory Maeve Moreno Other [facility] Other Start: 09-14-2021 Telephone encounter Maeve Moreno [facility] Start: 08-09-2021 End: 08-09-2021 ambulatory Maeve Moreno Other [facility] Other Start: 08-09-2021 Office outpatient vi sit 25 minutes Maeve Moreno [facility] Start: 07-26-2021 End: 07-26-2021 ambulatory Maeve Moreno Other [facility] Other Start: 07-26-2021 Telephone encounter Maeve Moreno [facility] Start: 09-28-2020 End: 09-28-2020 ambulatory Maeve Moreno Other [facility] Other Start: 09-28-2020 Telephone encounter Maeve Moreno [facility] Plan of Treatment Date Care Activity Detail Author Comprehensive metabo lic 2000 panel - Serum or Plasma [facility] enter Comprehensive metabo lic 2000 panel - Serum or Plasma [facility] enter [facility] Payers Date Payer Category Payer Unknown [id number] 1981 Unknown [id number] 1981 Unknown [id number] 1981 Unknown [id number] 1981 Unknown [id number] 1981 Unknown [id number] 1981 Unknown [id number] 1981 Unknown [id number] 1981 Unknown [id number] 1981 Unknown [id number] 1959 Private Health Insurance [id number] Private Health Insurance [employer] [id number] Self-pay Self Pay [id number] Unknown [facility] [id number] Social History Date Type Detail Facility Unknown if ever smoked [facility] Other Sex Assigned At Sex Assigned At Bir th [facility] Other Start: 10-11-2023 End: 10-11-2023 Tobacco smoking status NHIS Never smoked tobacco (finding) [facility] Start: 1980 Sex Assigned At Female F [facility] Clinical Notes 09-28-2020 to 06-28-2023 Note Date [...] She was informed that they may need QUALITY ASSURANCE CONSULTANT in near future. Will refer to transplant [...] more than 140s. She has no proteinuria. 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 Will refer to transplant [...] more than 40s. She has no proteinuria. [facility] Other 05-04-2023 Evaluation note* Encounter Date Diagnosis [...] and now being monitoring every 3-month started Novmb2021 per manufacture recommendation. She was informed that they may need QUALITY ASSURANCE CONSULTANT in near future. Will refer to transplant [...] more than 140s. She has no proteinuria. [facility] Other 02-09-2023 Evaluation note* Encounter Date Diagnosis [...] She was informed that they may need QUALITY ASSURANCE CONSULTANT in near future. Will refer to transplant [...] to check blood pressure at my office. [facility] Other 11-17-2022 Evaluation note* Encounter Date Diagnosis [...] She was informed that they may need QUALITY ASSURANCE CONSULTANT in near future. Will refer to transplant [...] She has no bleeding events or hematuria. [facility] Other 08-04-2022 Evaluation note* Encounter Date Diagnosis [...] She was informed that they may need QUALITY ASSURANCE CONSULTANT in near future. Will refer to transplant [...] She has no bleeding events or hematuria. 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) [facility] Other Evaluation noteNort [facility] Other Evaluation noteNo InformationNocaronde[facility] Other Evaluation note* Diagnosis Onset Date Resolution Status 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 CKD stage G4/A3, GFR 15-29 a nd albumin creatinine ratio >300 mg/g acute Factor V Leiden acute [id number] acute [facility] Work Phone: History general Narrative - [facility]orted[place] [facility] Other History general Narrative - Reported* Type Description Date Medical History PCOS Medical History previous blood clot in leg X 2 Medical History CAPILLARY HEMANGIOMA Medical History FACTOR V LEIDEN MUTATION Surgical History WISDOM TEETH X4 Hospitalization History CHILD X 2 Hospitalization History BLOOD CLOT [facility] Other History general Narrative - Reported* Type Description Date Medical History PCOS Medical History previous blood clot in leg X 2 Medical History CAPILLARY HEMANGIOMA Medical History FACTOR V LEIDEN MUTATION Surgical History WISDOM TEETH X4 Surgical History EVLT ON RIGHT LEG Hospitalization History CHILD X 2 Hospitalization History BLOOD CLOT [facility] Other Summary Purpose Family History Relationship Condition [...] creatinine ratio >300 mg/g Factor V Leiden [id number] Chief Complaint RENAL 3 MONTH F/U Reason for Visit ADPKD (autosomal dom inant polycystic kidney disease) CKD stage G4/A3, GFR 15-29 and albumin creatinine ratio >300 mg/g Factor V Leiden [id number] Additional Source Comments INFORMATION SOURCE (unrecogn ized section and content) DATE CREATED AUTHOR 09/06/2019 [facility] DATE CREATED AUTHOR AUTHOR'S ORGANIZ ATION 12/17/2022 [...] BE BASED ON THE PRIMARY CLINICAL RECORDS. [facility] [employer] [facility]. provides no warranty or guarantee of the accuracy or completeness of information in this document.
[2024-03-20 16:49] LABS: Alanine Aminotransferase 16 U/L (14-59); Albumin Globulin Ratio 1.2; Albumin Level 3.7 g/dL (3.4-5.0); Alkaline Phosphatase 34 U/L (46-116); Anion Gap 16.3; Aspartate Amino Transferase 14 U/L (15-37); Bilirubin Total 0.3 mg/dL (0.2-1.0); Calcium 8.9 mg/dL (8.5-10.1); Carbon Dioxide 20.5 mmol/L (21.0-32.0); Chloride 106 mmol/L (98-107); Estimated GFR (African America 25 (>=60); Estimated GFR (Non-African Ame 21 (>=60); Globulin 3.1 g/dL; Glucose 90 mg/dL (74-106); Potassium 4.8 mmol/L (3.5-5.1); Sodium 138 mmol/L (136-145); Total Protein 6.8 g/dL (6.4-8.2)
[2024-03-23 12:08] LABS: PTH, Intact 91 pg/mL (15-65)
== END 2024-03-20 15:43 | disposition home or self-care (01) ==
LOC: LAB 15:43
PROVIDERS: PCP Family Medicine; Visit Provider Internal Medicine Nephrology
DX: Q61.2 Polycystic kidney, adult type (principal); N18.9 Chronic kidney disease, unspecified; D63.1 Anemia in chronic kidney disease; N25.81 Secondary hyperparathyroidism of renal origin
CPT/HCPCS: 36415; 80053; 83970; 85027

== ENCOUNTER 2024-07-03 15:24 | Outpatient (OUT) | payer OTHER, SELFPAY ==
[2024-07-03 16:16] LABS: Alanine Aminotransferase 11 U/L (14-59); Albumin Globulin Ratio 1.2; Alkaline Phosphatase 36 U/L (46-116); Anion Gap 17.1; Aspartate Amino Transferase 11 U/L (15-37); BUN Creatinine Ratio 16.1; Bilirubin Total 0.3 mg/dL (0.2-1.0); Carbon Dioxide 23.4 mmol/L (21.0-32.0); Chloride 108 mmol/L (98-107); Estimated GFR (African America 27 (>=60 mL/min/1.73m^2); Estimated GFR (Non-African Ame 23 (>=60 mL/min/1.73m^2); Globulin 3.3 g/dL; Glucose 86 mg/dL (74-106); Phosphorus 4.6 mg/dL (2.6-4.7); Potassium 4.5 mmol/L (3.5-5.1); Sodium 144 mmol/L (136-145); Total Protein 7.3 g/dL (6.4-8.2)
[2024-07-06 12:07] LABS: PTH, Intact 88 pg/mL (15-65)
== END 2024-07-03 15:25 | disposition home or self-care (01) ==
LOC: LAB 15:26
PROVIDERS: PCP Family Medicine; Visit Provider Internal Medicine Nephrology
DX: Q61.3 Polycystic kidney, unspecified (principal); N18.4 Chronic kidney disease, stage 4 (severe); N25.81 Secondary hyperparathyroidism of renal origin
CPT/HCPCS: 36415; 80053; 83970; 84100

== ENCOUNTER 2024-09-24 15:54 | Outpatient (OUT) | payer OTHER, SELFPAY ==
--- OUTSIDE RECORDS SUMMARY | 2024-09-24 16:10 | XMS_ITS | CCD ---
Author Organization [facility] Care Team Providers Care Supervisor Statement Clerks Name Role Phone Maeve Moreno Unavailable DR MAEVE MORENO Admitting Unavailable DR MAEVE MORENO Consulting Unavailable DR MAREN GONZALEZ Primary Care Unavailable TIFFANIE, DR MCFARLANE Attending Unavailable TIFFANIE, DR MCFARLANE Consulting Unavailable TIFFANIE, DR MCFARLANE Attending Unavailable TIFFANIE, DR MCFARLANE Admitting Unavailable DR MAREN GONZALEZ Primary Care Unavailable TIFFANIE, DR MCFARLANE Consulting [...] Sulfonamides (Antibiotic) Propensity to adverse reactions rash eCollect Other Medications Current Medications Medication Drug Class(es) Dates Sig (Normalized) Sig (Original) cetirizine hydrochloride 10 mg oral tablet (20 sources) Histamine-1 Receptor Antagonist Start: 10-11-2023 take 1 tablet by mouth once daily Cetirizine (Zyrtec) 10 mg tablet Active 10 MG PO Daily October 11, 2023 12:00am FreeTextSi tablet on the tongue and allow to dissolve Orally Once a day; Note: Source Status: Taking; Provider: Tiffanie Mcfarlane ( ) take 1 tablet by mouth once abdiel y ZyrTEC Allergy 10 MG 1 tablet on the tongue and allow to dissolve Orally Once a day Active pantoprazole 40 mg delayed release oral tablet (7 sources) Proton Pump Inhibitor Start: 10-11-2023 End: 03-27-2024 take 1 tablet by mouth once daily Pantoprazole 40 mg tablet,delayed release (DR/EC) Active 40 MG PO Daily March 27, 2024 3:26pm Start: 10-11-2023 End: 03-27-2024 Pantoprazole Discontinued MG PO October 11, 2023 1:00am March 27, 2024 4:27pm rivaroxaban 20 mg oral tablet (20 sources) Factor Xa Inhibitor Start: 10-11-2023 take 1 tablet by mouth once daily at mealtime Rivaroxaban 20 mg tablet Active 20 MG PO Daily October 11, 2023 12:00am FreeTextSi tablet with food Orally Once a day; Note: Source Status: Taking; Provider: Tiffanie Richardson take 1 tablet by alejandro th every twenty-four hours Xarelto 20 MG 1 tablet with food Orally Once a day Active tolvaptan 45 mg oral tablet (20 sources) Vasopressin V2 Receptor Antagonist Start: 07-10-2024 Tolvaptan (Polycys Kidney Dis) (Jynarque) 45 mg (AM)/ 15 mg (PM) tablets, sequential Active 0 PO per package directions 56 July 10, 2024 12:00am PO PER PKG DIR Start: 06-04-2024 End: 07-10-2024 take 1 tablet by mouth every eight hours in the morning Tolvaptan (Polycys Kidney Dis) (Jynarque) 90 mg (AM)/ 30 mg (PM) tablets, sequential Discontinued 0 .ROUTE .COMPLEX June 04, 2024 3:44pm July 10, 2024 4:33pm TAKE ONE 90MG TABLET BY MOUTH UPON AWAKING, AND ONE 30MG TABLET BY MOUTH 8 HOURS LATER Start: 04-07-2024 End: 06-04-2024 take 1 tablet by mouth every eight hours in the morning Tolvaptan (Polycys Kidney Dis) (Jynarque) 90 mg (AM)/ 30 mg (PM) tablets, sequential Discontinued 0 .ROUTE .COMPLEX April 07, 2024 10:41am June 04, 2024 3:45pm TAKE ONE 90 MG TABLET BY MOUTH UPON WAKING, THEN TAKE ONE 30 MG TABLET BY MOUTH 8 HOURS LATER EVERY DAY Start: 04-06-2024 End: 04-07-2024 take 1 tablet by mouth every eight hours in the morning Tolvaptan (Polycys Kidney Dis) (Jynarque) 90 mg (AM)/ 30 mg (PM) tablets, sequential Discontinued 0 .ROUTE .COMPLEX April 06, 2024 8:31am April 07, 2024 10:41am TAKE ONE 90 MG TABLET BY MOUTH UPON WAKING, THEN TAKE ONE 30 MG TABLET BY MOUTH 8 HOURS LATER EVERY DAY Start: 10-11-2023 End: 04-06-2024 Tolvaptan (Polycys Kidney Di s) (Jynarque) 90 mg (AM)/ 30 mg (PM) tablets, sequential Discontinued 0 PO per package directions [facility] December 23, 2023 10:04pm April 06, 2024 8:33am PO PER PKG DIR Start: 03-28-2023 Jynarque [...] Triamcinolone (17 sources) Corticosteroid Start: 03-23-2020 IBRAHIMA - 10 m g Mar, 40 mg Problems Active Problems Problem Classification Problem Date Documented Da te Episodic/Chronic Chronic kidney disease (20 sources) Chronic kidney disease stage 2; Translations: [Chronic kidney disease, stage 2 (mild)] Onset: 08-09-2021 Resolved: 03-23-2022 Chronic Comment on above: Renal function has b een quite variable since she was started on Jynarque. Currently creatinine 2.2 mg/dL, it has been variable between 1.6 to 2 mg/dL over the last year according to volume status and state of hydration. Patient was advised to increase water intake since she is expected to have more urine output with tolvaptan. Coagulation and hemorrhagic disorders (20 sources) Factor V Leiden mutation; Translations: [Activated protein C resistance] Onset: 08-09-2021 Resolved: 03-23-2022 Chronic Comment on above: Patient has been on Xarelto for factor V. Leiden mutation. She has no recent blood clots. She has no bleeding events or hematuria. Genitourinary congenital anomalies (20 sources) Multiple congenital cysts of kidney; Translations: [Polycystic kidney, unspecified] Onset: 08-09-2021 Resolved: 03-23-2022 Chronic Comment on above: She was started Jyna rque 45 &30 mg daily on October 13, 2020 that titrated up to max dose 90 & 30 mg daily. liver function panel was monitored monthly and she has normal AST and ALT. creatinine has increased from 1.3 mg/dL and 2020 up to 1.8 mg/dL immediately after starting Jynarque but has been stable [...] She was informed that they may need [employer] in near future. Will refer to transplant evaluation once GFR < 20 ml/min. She does not have a donor. Hypertension with complications and secondary hypertension (11 sources) Chronic kidney disease due to hypertension; [...] #### L IPID, CMP, TSH, T7 #### [facility] [address] [address] [address] Jessica Mosqueda HEMOGRAM AND PLATELon 2022 Hematocrit (Bld) [Volume fraction] 41.0 % Normal 36.0-48.0 [facility] Comment on above: Performed By: #### H H #### [facility] [address] [place] [address] Dr. Jessica Mosqueda Hemoglobin (Bld) [Mass/Vol] 13.0 g/dL Normal 12.0-16.0 [facility] Comment on above: Performed By: #### H H #### [facility] [address] [place] [address] Dr. Jessica Mosqueda MCH (RBC) [Entitic mass] 28.6 pg Normal 26.7-34.0 [facility] Comment on above: Performed By: #### H H #### [facility] [address] [place] [address] Dr. Jessica Mosqueda MCHC (RBC) [Mass/Vol] 31.7 g/dL Normal 29.9-35.2 [facility] Comment on above: Performed By: #### H H #### [facility] [address] [place] [address] Dr. Jessica Mosqueda MCV (RBC) [Entitic vol] 90.3 fL Normal 81.0-99.0 [facility] Comment on above: Performed By: #### H H #### [facility] [address] [place] [address] Dr. Jessica Mosqueda PLT 133 103/ul Critically low 150-450 [facility] Comment on above: Performed By: #### H H #### [facility] [address] [place] [address] Dr. Jessica Mosqueda RBC 4.54 106/ul Normal 4.20-5.40 [facility] Comment on above: Performed By: #### H H #### [facility] [address] [place] [address] Dr. Jessica Mosqueda WBC 9.0 103/ul Normal 4.0-11.0 [facility] Comment on above: Performed By: #### H H #### [facility] [address] [place] [address] Dr. Jessica Mosqueda PHOSPHORUSon 12-13-2022 Phosphate [Mass/Vol] 4.3 mg/dL Normal 2.6-4.7 [facility] Comment on above: Performed By: #### P THINT #### [facility] [address] [place] [address] Dr. Jessica Mosqueda PROF 14(COMP METB)on 023 Albumin [Mass/Vol] 3.8 g/dL Normal 3.4-5.0 [facility] Comment on above: Performed By: #### P THINT #### [facility] [address] [place] [address] Dr. Jessica Mosqueda Albumin/Globulin [Mass ratio] 1.1 {ratio} Normal [facility] Comment on above: Performed By: #### P THINT #### [facility] [address] [place] [address] Dr. Jessica Mosqueda ALP [Catalytic activity/Vol] 36 U/L Critically low 46-116 [facility] Comment on above: Performed By: #### P THINT #### [facility] [address] [place] [address] Dr. Jessica Mosqueda ALT [Catalytic activity/Vol] 14 U/L Normal 14-59 [facility] Comment on above: Performed By: #### P THINT #### [facility] [address] [place] [address] Dr. Jessica Mosqueda Anion gap [Moles/Vol] 11.9 mmol/L Normal [facility] Comment on above: Performed By: #### P THINT #### [facility] [address] [place] [address] Dr. Jessica Mosqueda AST [Catalytic activity/Vol] 13 U/L Critically low 15-37 [facility] Comment on above: Performed By: #### P THINT #### [facility] [address] [address] [address] Jessica Mosqueda Bilirubin [Mass/Vol] 0.3 mg/dL Normal 0.2-1.0 [facility] Comment on above: Performed By: #### P THINT #### [facility] [address] [address] [address] Jessica Mosqueda Calcium [Mass/Vol] 9.0 mg/dL Normal 8.5-10.1 [facility] Comment on above: Performed By: #### P THINT #### [facility] [address] [place] [address] Dr. Jessica Mosqueda Chloride [Moles/Vol] 107 mmol/L Normal 98-107 [facility] Comment on above: Performed By: #### P THINT #### [facility] [address] [place] [address] Dr. Jessica Mosqueda CO2 [Moles/Vol] 28.1 mmol/L Normal 21.0-32.0 [facility] Comment on above: Performed By: #### P THINT #### [facility] [address] [place] [address] Dr. Jessica Mosqueda Creatinine [Mass/Vol] 2.10 mg/dL Critically high 0.55-1.02 [facility] Comment on above: Performed By: #### P THINT #### [facility] [address] [place] [address] Dr. Jessica Mosqueda EGFR-AF SWISS 31 mL/min/1.73m2 Critically low >=60 [facility] Comment on above: Performed By: #### P THINT #### [facility] [address] [address] [address] Jessica Mosqueda EGFR-NON AF SWISS 26 mL/min/1.73m2 Critically low >=60 [facility] Comment on above: Performed By: #### P THINT #### [facility] [address] [address] [address] Jessica Mosqueda Globulin (S) [Mass/Vol] 3.6 g/dL Normal [facility] Comment on above: Performed By: #### P THINT #### [facility] [address] [address] [address] Jessica Mosqueda Glucose [Mass/Vol] 82 mg/dL Normal 74-[address] [facility] Comment on above: Performed By: #### P THINT #### [facility] [address] [address] [address] Jessica Mosqueda Potassium [Moles/Vol] 4.0 mmol/L Normal 3.5-5.1 [facility] Comment on above: Performed By: #### P THINT #### [facility] [address] [place] [address] Dr. Jessica Mosqueda Protein [Mass/Vol] 7.4 g/dL Normal 6.4-8.[address] [facility] Comment on above: Performed By: #### P THINT #### [facility] [address] [place] [address] Dr. Jessica Mosqueda Sodium [Moles/Vol] 143 mmol/L Normal 136-145 [facility] Comment on above: Performed By: #### P THINT #### [facility] [address] [place] [address] Dr. Jessica Mosqueda Urea nitrogen [Mass/Vol] 23.0 mg/dL Critically high 7.0-18.0 [facility] Comment on above: Performed By: #### P THINT #### [facility] [address] [place] [address] Dr. Jessica Mosqueda Urea nitrogen/Creatinine [Mass ratio] 11.0 mg/mg Normal [facility] Comment on above: Performed By: #### P THINT #### [facility] [address] [place] [address] Dr. Jessica Mosuqeda MG MAMM SCREEN 3D MATILDA CADon 11-14-2022 MG MAMM SCREEN 3D MATILDA CAD Patient: ISABEL RIVERA Exam Date: 11/14/2022 : 1980 Gender:F Ordering : DR MAREN JAMES . Admission #: [id number] Family : Order #: [id number] CLICK HERE TO VIEW EXAM RADIOLOGY REPORT [...] unknown cancer at age 51. LOCATION: [facility] BREAST COMPOSITION: Extremely dense, which [...] M.D. on 11/15/2022 at 07:51 Normal [facility] INSULINon 11-11-2022 Insulin 7.2 uIU/mL Normal 2.6-24.9 [facility] Comment on above: Performed By: #### I NSULIN #### [facility] [address] [place] [address] Dr. Jessica Mosqueda CBC AUTO DIFFon 11-10-2022 BASO # 0.0 103/ul Normal 0.0-0.1 [facility] Comment on above: Performed By: #### L IPID, CMP, TSH, T7 #### [facility] [address] [address] [address] Jessica Mosqueda Basophils/100 WBC (Bld) 0.5 % Normal 0.2-2.0 [facility] Comment on above: Performed By: #### L IPID, CMP, TSH, T7 #### [facility] [address] [address] [address] Jessica Mosqueda EO # 0.3 103/ul Normal 0.0-0.7 [facility] Comment on above: Performed By: #### L IPID, CMP, TSH, T7 #### [facility] [address] [address] [address] Jessica Mosqueda Eosinophils/100 WBC (Bld) 3.6 % Normal 0.9-7.0 [facility] Comment on above: Performed By: #### L IPID, CMP, TSH, T7 #### [facility] [address] [place] [address] Dr. Jessica Mosqueda Erythrocyte distribution width (RBC) [Ratio] 13.2 % Normal 11.0-15.0 [facility] Comment on above: Performed By: #### L IPID, CMP, TSH, T7 #### [facility] [address] [place] [address] Dr. Jessica Mosqueda Hematocrit (Bld) [Volume fraction] 41.9 % Normal 36.0-48.0 [facility] Comment on above: Performed By: #### L IPID, CMP, TSH, T7 #### [facility] [address] [place] [address] Dr. Jessica Mosqueda Hemoglobin (Bld) [Mass/Vol] 13.3 g/dL Normal 12.0-16.0 [facility] Comment on above: Performed By: #### L IPID, CMP, TSH, T7 #### [facility] [address] [place] [address] Dr. Jessica Mosqueda IG # 0.02 10e3/ul Normal 0.00-0.03 [facility] Comment on above: Performed By: #### L IPID, CMP, TSH, T7 #### [facility] [address] [place] [address] Dr. Jessica Mosqueda IG % 0.3 % Normal 0.0-0.5 [facility] Comment on above: Performed By: #### L IPID, CMP, TSH, T7 #### [facility] [address] [place] [address] Dr. Jessica Mosqueda LYMPH # 2.2 103/ul Normal 1.2-3.8 [facility] Comment on above: Performed By: #### L IPID, CMP, TSH, T7 #### [facility] [address] [place] [address] Dr. Jessica Mosqueda Lymphocytes/100 WBC (Bld) 29.6 % Normal 20.5-60.0 [facility] Comment on above: Performed By: #### L IPID, CMP, TSH, T7 #### [facility] [address] [place] [address] Dr. Jessica Mosqueda MANUAL DIFF REQ NO Normal [facility] Comment on above: Performed By: #### L IPID, CMP, TSH, T7 #### [facility] [address] [place] [address] Dr. Jessica Mosqueda MCH (RBC) [Entitic mass] 28.9 pg Normal 26.7-34.0 [facility] Comment on above: Performed By: #### L IPID, CMP, TSH, T7 #### [facility] [address] [place] [address] Dr. Jessica Mosqueda MCHC (RBC) [Mass/Vol] 31.7 g/dL Normal 29.9-35.2 [facility] Comment on above: Performed By: #### L IPID, CMP, TSH, T7 #### [facility] [address] [place] [address] Dr. Jessica Mosqueda MCV (RBC) [Entitic vol] 91.1 fL Normal 81.0-99.0 [facility] Comment on above: Performed By: #### L IPID, CMP, TSH, T7 #### [facility] [address] [place] [address] Dr. Jessica Mosqueda MONO # 0.5 103/ul Normal 0.3-0.8 [facility] Comment on above: Performed By: #### L IPID, CMP, TSH, T7 #### [facility] [address] [place] [address] Dr. Jessica Mosqueda Monocytes/100 WBC (Bld) 6.1 % Normal 1.7-12.0 [facility] Comment on above: Performed By: #### L IPID, CMP, TSH, T7 #### [facility] [address] [place] [address] Dr. Jessica Mosqueda NEUT # 4.4 103/ul Normal 1.4-6.5 [facility] Comment on above: Performed By: #### L IPID, CMP, TSH, T7 #### [facility] [address] [place] [address] Dr. Jessica Mosqueda Neutrophils/100 WBC (Bld) 59.9 % Normal 43.0-75.0 [facility] Comment on above: Performed By: #### L IPID, CMP, TSH, T7 #### [facility] [address] [place] [address] Dr. Jessica Mosqueda Platelet mean volume (Bld) [Entitic vol] 12.5 fL Normal 9.5-13.5 [facility] Comment on above: Performed By: #### L IPID, CMP, TSH, T7 #### [facility] [address] [place] [address] Dr. Jessica Mosqueda PLT 157 103/ul Normal 150-450 [facility] Comment on above: Performed By: #### L IPID, CMP, TSH, T7 #### [facility] [address] [place] [address] Dr. Jessica Mosqueda RBC 4.60 106/ul Normal 4.20-5.40 [facility] Comment on above: Performed By: #### L IPID, CMP, TSH, T7 #### [facility] [address] [place] [address] Dr. Jessica Mosqueda WBC 7.3 103/ul Normal 4.0-11.0 [facility] Comment on above: Performed By: #### L IPID, CMP, TSH, T7 #### [facility] [address] [place] [address] Dr. Jessica Mosqueda FREE THYROXINE INDEX T7on FTI 2.51 Normal 1.30-4.50 [facility] Comment on above: Performed By: #### L IPID, CMP, TSH, T7 #### [facility] [address] [place] [address] Dr. Jessica Mosqueda T3U 38.0 % Normal 30.0-39.0 [facility] Comment on above: Performed By: #### L IPID, CMP, TSH, T7 #### [facility] [address] [address] [address] Jessica Mosqueda T4 [Mass/Vol] 6.60 ug/dL Normal 4.80-13.90 [facility] Comment on above: Performed By: #### L IPID, CMP, TSH, T7 #### [facility] [address] [address] [address] Jessica Mosqueda GLYCOHEMOGLOBIN A1Con 2022 ADA RECOMMENDATION SEE BELOW Normal [facility] Comment on above: Result Comment: ADA RECOMMENDED LIMIT 4.0 - 6.0 ADA THERAPEUTIC TARGET < 7.0 ACTION SUGGESTED > 7.0 Performed By: #### P THINT #### [facility] [address] [place] [address] Dr. Jessica Mosqueda Glucose [Mass/Vol] 111 mg/dL Normal [facility] Comment on above: Performed By: #### P THINT #### [facility] [address] [address] [address] Jessica Mosqueda HbA1c (Bld) [Mass fraction] 5.5 % Normal 4.5-6.2 [facility] Comment on above: Performed By: #### P THINT #### [facility] [address] [address] [address] Jessica Mosqueda IRONon 11-10-2022 Iron [Mass/Vol] 58.0 ug/dL Normal 50.0-170.[address] [facility] Comment on above: Performed By: #### P THINT #### [facility] [address] [place] [address] Dr. Jessica Mosqueda LIPID PROFILEon 11-10-2022 CHOL-HDL RATIO NORM SEE BELOW Normal [facility] Comment on above: Result Comment: 3.3 - 4.4 LOW RISK 4.4 - 7.1 AVERAGE RISK 7.1 - 11.0 MODERATE RISK >11.0 HIGH RISK Performed By: #### L IPID, CMP, TSH, T7 #### [facility] [address] [address] [address] Jessica Mosqueda Cholesterol [Mass/Vol] 205 mg/dL Critically high <=200 [facility] Comment on above: Performed By: #### L IPID, CMP, TSH, T7 #### [facility] [address] [address] [address] Jessica Mosqueda Cholesterol in HDL [Mass/Vol] 60 mg/dL Normal 40-60 [facility] Comment on above: Performed By: #### L IPID, CMP, TSH, T7 #### [facility] [address] [address] [address] Jessica Mosqueda Cholesterol in LDL [Mass/Vol] 127.4 mg/dL Normal [facility] Comment on above: Performed By: #### L IPID, CMP, TSH, T7 #### [facility] [address] [address] [address] Jessica Mosqueda Cholesterol.total/Cho lesterol in HDL [Mass ratio] 3.4 {ratio} Normal [facility] Comment on above: Performed By: #### L IPID, CMP, TSH, T7 #### [facility] [address] [address] [address] Jessica Mosqueda HDL NORMAL > or = 60 mg/dl - LOW CARDIOVASCULAR RISK <40 mg/dl - HIGH CARDIOVASCULAR RISK Normal [facility] Comment on above: Performed By: #### L IPID, CMP, TSH, T7 #### [facility] [address] [address] [address] Jessica Mosqueda LDL CALC NORMAL SEE BELOW Normal [facility] Comment on above: Result Comment: <100 mg/dl OPTIMAL 100 - 129 mg/dl NEAR OR ABOVE OPTIMAL 130 - 159 mg/dl BORDERLINE HIGH 160 - 189 mg/dl HIGH >190 mg/dl VERY HIGH Performed By: #### L IPID, CMP, TSH, T7 #### [facility] [address] [address] [address] Jessica Mosqueda Triglyceride [Mass/Vol] 88 mg/dL Normal <=150 [facility] Comment on above: Performed By: #### L IPID, CMP, TSH, T7 #### [facility] [address] [address] [address] Jessica Mosqueda VLDL CALC 17.6 mg/dL Normal [facility] Comment on above: Performed By: #### L IPID, CMP, TSH, T7 #### [facility] [address] [address] [address] Jessica Mosqueda PROF 14(COMP METB)on 023 Albumin [Mass/Vol] 3.8 g/dL Normal 3.4-5.0 [facility] Comment on above: Performed By: #### L IPID, CMP, TSH, T7 #### [facility] [address] [place] [address] Dr. Jessica Mosqueda Albumin/Globulin [Mass ratio] 1.1 {ratio} Normal [facility] Comment on above: Performed By: #### L IPID, CMP, TSH, T7 #### [facility] [address] [place] [address] Dr. Jessica Mosqueda ALP [Catalytic activity/Vol] 37 U/L Critically low 46-116 [facility] Comment on above: Performed By: #### L IPID, CMP, TSH, T7 #### [facility] [address] [place] [address] Dr. Jessica Mosqueda ALT [Catalytic activity/Vol] 16 U/L Normal 14-59 [facility] Comment on above: Performed By: #### L IPID, CMP, TSH, T7 #### [facility] [address] [address] [address] Jessica Mosqueda Anion gap [Moles/Vol] 13.7 mmol/L Normal [facility] Comment on above: Performed By: #### L IPID, CMP, TSH, T7 #### [facility] [address] [place] [address] Dr. Jessica Mosqueda AST [Catalytic activity/Vol] 14 U/L Critically low 15-37 [facility] Comment on above: Performed By: #### L IPID, CMP, TSH, T7 #### [facility] [address] [place] [address] Dr. Jessica Mosqueda Bilirubin [Mass/Vol] 0.4 mg/dL Normal 0.2-1.0 [facility] Comment on above: Performed By: #### L IPID, CMP, TSH, T7 #### [facility] [address] [address] [address] Jessica Mosqueda Calcium [Mass/Vol] 9.6 mg/dL Normal 8.5-10.1 [facility] Comment on above: Performed By: #### L IPID, CMP, TSH, T7 #### [facility] [address] [address] [address] Jessica Mosqueda Chloride [Moles/Vol] 107 mmol/L Normal 98-107 [facility] Comment on above: Performed By: #### L IPID, CMP, TSH, T7 #### [facility] [address] [address] [address] Jessica Mosqueda CO2 [Moles/Vol] 27.5 mmol/L Normal 21.0-32.0 [facility] Comment on above: Performed By: #### L IPID, CMP, TSH, T7 #### [facility] [address] [place] [address] Dr. Jessica Mosqueda Creatinine [Mass/Vol] 1.74 mg/dL Critically high 0.55-1.02 [facility] Comment on above: Performed By: #### L IPID, CMP, TSH, T7 #### [facility] [address] [place] [address] Dr. Jessica Mosqueda EGFR-AF SWISS 39 mL/min/1.73m2 Critically low >=60 [facility] Comment on above: Performed By: #### L IPID, CMP, TSH, T7 #### [facility] [address] [place] [address] Dr. Jessica Mosqueda EGFR-NON AF SWISS 32 mL/min/1.73m2 Critically low >=60 [facility] Comment on above: Performed By: #### L IPID, CMP, TSH, T7 #### [facility] [address] [place] [address] Dr. Jessica Mosqueda Globulin (S) [Mass/Vol] 3.4 g/dL Normal [facility] Comment on above: Performed By: #### L IPID, CMP, TSH, T7 #### [facility] [address] [address] [address] Jessica Mosqueda Glucose [Mass/Vol] 95 mg/dL Normal 74-[address] [facility] Comment on above: Performed By: #### L IPID, CMP, TSH, T7 #### [facility] [address] [place] [address] Dr. Jessica Mosqueda Potassium [Moles/Vol] 4.2 mmol/L Normal 3.5-5.1 [facility] Comment on above: Performed By: #### L IPID, CMP, TSH, T7 #### [facility] [address] [place] [address] Dr. Jessica Mosqueda Protein [Mass/Vol] 7.2 g/dL Normal 6.4-8.[address] [facility] Comment on above: Performed By: #### L IPID, CMP, TSH, T7 #### [facility] [address] [place] [address] Dr. Jessica Mosqueda Sodium [Moles/Vol] 144 mmol/L Normal 136-[address] [facility] Comment on above: Performed By: #### L IPID, CMP, TSH, T7 #### [facility] [address] [address] [address] Jessica Mosqueda Urea nitrogen [Mass/Vol] 25.0 mg/dL Critically high 7.0-18.0 [facility] Comment on above: Performed By: #### L IPID, CMP, TSH, T7 #### [facility] [address] [place] [address] Dr. Jessica Mosqueda Urea nitrogen/Creatinine [Mass ratio] 14.4 mg/mg Normal [facility] Comment on above: Performed By: #### L IPID, CMP, TSH, T7 #### [facility] [address] [place] [address] Dr. Jessica Mosqueda TSHon 11-10-2022 TSH 1.244 uIU/mL Normal 0.358-3.740 [facility] Comment on above: Performed By: #### L IPID, CMP, TSH, T7 #### [facility] [address] [place] [address] Dr. Jessica Mosqueda PTH INTACTon 09-28-2022 PTH, Intact 43 pg/mL Normal 15-65 [facility] Comment on above: Performed By: #### L IPID, CMP, TSH, T7 #### [facility] [address] [place] [address] Dr. Jessica Mosqueda HEMOGRAM AND PLATELon 2022 Hematocrit (Bld) [Volume fraction] 39.0 % Normal 36.0-48.0 [facility] Comment on above: Performed By: #### H H #### [facility] [address] [place] [address] Dr. Jessica Mosqueda Hemoglobin (Bld) [Mass/Vol] 12.3 g/dL Normal 12.0-16.0 [facility] Comment on above: Performed By: #### H H #### [facility] [address] [place] [address] Dr. Jessica Mosqueda MCH (RBC) [Entitic mass] 29.1 pg Normal 26.7-34.0 [facility] Comment on above: Performed By: #### H H #### [facility] [address] [place] [address] Dr. Jessica Mosqueda MCHC (RBC) [Mass/Vol] 31.5 g/dL Normal 29.9-35.2 [facility] Comment on above: Performed By: #### H H #### [facility] [address] [place] [address] Dr. Jessica Mosqueda MCV (RBC) [Entitic vol] 92.4 fL Normal 81.0-99.0 [facility] Comment on above: Performed By: #### H H #### [facility] [address] [place] [address] Dr. Jessica Mosqueda PLT 131 103/ul Critically low 150-450 [facility] Comment on above: Performed By: #### H H #### [facility] [address] [place] [address] Dr. Jessica Mosqueda RBC 4.22 106/ul Normal 4.20-5.40 [facility] Comment on above: Performed By: #### H H #### [facility] [address] [place] [address] Dr. Jessica Mosqueda WBC 8.6 103/ul Normal 4.0-11.0 [facility] Comment on above: Performed By: #### H H #### [facility] [address] [place] [address] Dr. Jessica Mosqueda PHOSPHORUSon 09-26-2022 Phosphate [Mass/Vol] 4.3 mg/dL Normal 2.6-4.7 [facility] Comment on above: Performed By: #### P THINT #### [facility] [address] [place] [address] Dr. Jessica Mosqueda PROF 14(COMP METB)on 023 Albumin [Mass/Vol] 3.9 g/dL Normal 3.4-5.0 [facility] Comment on above: Performed By: #### P THINT #### [facility] [address] [place] [address] Dr. Jessica Mosqueda Albumin/Globulin [Mass ratio] 1.1 {ratio} Normal [facility] Comment on above: Performed By: #### P THINT #### [facility] [address] [place] [address] Dr. Jessica Mosqueda ALP [Catalytic activity/Vol] 34 U/L Critically low 46-116 [facility] Comment on above: Performed By: #### P THINT #### [facility] [address] [place] [address] Dr. Jessica Mosqueda ALT [Catalytic activity/Vol] 13 U/L Critically low 14-59 [facility] Comment on above: Performed By: #### P THINT #### [facility] [address] [place] [address] Dr. Jessica Mosqueda Anion gap [Moles/Vol] 13.6 mmol/L Normal [facility] Comment on above: Performed By: #### P THINT #### [facility] [address] [place] [address] Dr. Jessica Mosqueda AST [Catalytic activity/Vol] 9 U/L Critically low 15-37 [facility] Comment on above: Performed By: #### P THINT #### [facility] [address] [address] [address] Jessica Mosqueda Bilirubin [Mass/Vol] 0.3 mg/dL Normal 0.2-1.0 [facility] Comment on above: Performed By: #### P THINT #### [facility] [address] [address] [address] Jessica Mosqueda Calcium [Mass/Vol] 9.5 mg/dL Normal 8.5-10.1 [facility] Comment on above: Performed By: #### P THINT #### [facility] [address] [address] [address] Jessica Mosqueda Chloride [Moles/Vol] 105 mmol/L Normal 98-107 [facility] Comment on above: Performed By: #### P THINT #### [facility] [address] [address] [address] Jessica Mosqueda CO2 [Moles/Vol] 24.7 mmol/L Normal 21.0-32.0 [facility] Comment on above: Performed By: #### P THINT #### [facility] [address] [address] [address] Jessica Mosqueda Creatinine [Mass/Vol] 1.67 mg/dL Critically high 0.55-1.02 [facility] Comment on above: Performed By: #### P THINT #### [facility] [address] [address] [address] Jessica Mosqueda EGFR-AF SWISS 41 mL/min/1.73m2 Critically low >=60 [facility] Comment on above: Performed By: #### P THINT #### [facility] [address] [address] [address] Jessica Mosqueda EGFR-NON AF SWISS 34 mL/min/1.73m2 Critically low >=60 [facility] Comment on above: Performed By: #### P THINT #### [facility] [address] [address] [address] Jessica Mosqueda Globulin (S) [Mass/Vol] 3.5 g/dL Normal [facility] Comment on above: Performed By: #### P THINT #### [facility] [address] [address] [address] Jessica Mosqueda Glucose [Mass/Vol] 94 mg/dL Normal 74-106 [facility] Comment on above: Performed By: #### P THINT #### [facility] [address] [address] [address] Jessica Mosqueda Potassium [Moles/Vol] 4.4 mmol/L Normal 3.5-5.1 [facility] Comment on above: Performed By: #### P THINT #### [facility] [address] [address] [address] Jessica Mosqueda Protein [Mass/Vol] 7.4 g/dL Normal 6.4-8.2 [facility] Comment on above: Performed By: #### P THINT #### [facility] [address] [address] [address] Jessica Mosqueda Sodium [Moles/Vol] 139 mmol/L Normal 136-145 [facility] Comment on above: Performed By: #### P THINT #### [facility] [address] [address] [address] eJssica Mosqueda Urea nitrogen [Mass/Vol] 29.0 mg/dL Critically high 7.0-18.0 [facility] Comment on above: Performed By: #### P THINT #### [facility] [address] [address] [address] Jessica Mosqueda Urea nitrogen/Creatinine [Mass ratio] 17.4 mg/mg Normal [facility] Comment on above: Performed By: #### P THINT #### [facility] [address] [address] [address] Jessica Mosqueda PTH INTACTon 06-30-2022 PTH, Intact 64 pg/mL Normal 15-65 [facility] Comment on above: Performed By: #### P THINT #### [facility] [address] [address] [address] Jessica Mosqueda HEMOGRAM AND PLATELon 2021 Hematocrit (Bld) [Volume fraction] 37.5 % Normal 36.0-48.0 [facility] Comment on above: Performed By: #### P THINT #### [facility] [address] [place] [address] Dr. Jessica Mosqueda Hemoglobin (Bld) [Mass/Vol] 12.1 g/dL Normal 12.0-16.0 [facility] Comment on above: Performed By: #### P THINT #### [facility] [address] [place] [address] Dr. Jessica Mosqueda MCH (RBC) [Entitic mass] 29.0 pg Normal 26.7-34.0 [facility] Comment on above: Performed By: #### P THINT #### [facility] [address] [place] [address] Dr. Jessica Mosqueda MCHC (RBC) [Mass/Vol] 32.3 g/dL Normal 29.9-35.2 [facility] Comment on above: Performed By: #### P THINT #### [facility] [address] [place] [address] Dr. Jessica Mosqueda MCV (RBC) [Entitic vol] 89.9 fL Normal 81.0-99.0 [facility] Comment on above: Performed By: #### P THINT #### [facility] [address] [place] [address] Dr. Jessica Mosqueda PLT 170 103/ul Normal 150-450 [facility] Comment on above: Performed By: #### P THINT #### [facility] [address] [place] [address] Dr. Jessica Mosqueda RBC 4.17 106/ul Critically low 4.20-5.40 [facility] Comment on above: Performed By: #### P THINT #### [facility] [address] [place] [address] Dr. Jessica Mosqueda WBC 9.4 103/ul Normal 4.0-11.0 [facility] Comment on above: Performed By: #### P THINT #### [facility] [address] [place] [address] Dr. Jessica Mosqueda PHOSPHORUSon 06-29-2022 Phosphate [Mass/Vol] 3.8 mg/dL Normal 2.6-4.7 [facility] Comment on above: Performed By: #### L IPID, CMP, TSH, T7 #### [facility] [address] [address] [address] Jessica Mosqueda PROF 14(COMP METB)on 022 Albumin [Mass/Vol] 4.0 g/dL Normal 3.4-5.0 [facility] Comment on above: Performed By: #### L IPID, CMP, TSH, T7 #### [facility] [address] [address] [address] Jessica Mosqueda Albumin/Globulin [Mass ratio] 1.2 {ratio} Normal [facility] Comment on above: Performed By: #### L IPID, CMP, TSH, T7 #### [facility] [address] [place] [address] Dr. Jessica Mosqueda ALP [Catalytic activity/Vol] 38 U/L Critically low 46-116 [facility] Comment on above: Performed By: #### L IPID, CMP, TSH, T7 #### [facility] [address] [address] [address] Jessica Mosqueda ALT [Catalytic activity/Vol] 13 U/L Critically low 14-59 [facility] Comment on above: Performed By: #### L IPID, CMP, TSH, T7 #### [facility] [address] [address] [address] Jessica Mosqueda Anion gap [Moles/Vol] 13.1 mmol/L Normal [facility] Comment on above: Performed By: #### L IPID, CMP, TSH, T7 #### [facility] [address] [address] [address] Jessica Mosqueda AST [Catalytic activity/Vol] 14 U/L Critically low 15-37 [facility] Comment on above: Performed By: #### L IPID, CMP, TSH, T7 #### [facility] [address] [address] [address] Jessica Mosqueda Bilirubin [Mass/Vol] 0.4 mg/dL Normal 0.2-1.0 [facility] Comment on above: Performed By: #### L IPID, CMP, TSH, T7 #### [facility] [address] [address] [address] Jessica Mosqueda Calcium [Mass/Vol] 9.2 mg/dL Normal 8.5-10.1 [facility] Comment on above: Performed By: #### L IPID, CMP, TSH, T7 #### [facility] [address] [address] [address] Jessica Mosqueda Chloride [Moles/Vol] 104 mmol/L Normal 98-107 [facility] Comment on above: Performed By: #### L IPID, CMP, TSH, T7 #### [facility] [address] [place] [address] Dr. Jessica Mosqueda CO2 [Moles/Vol] 26.1 mmol/L Normal 21.0-32.0 [facility] Comment on above: Performed By: #### L IPID, CMP, TSH, T7 #### [facility] [address] [place] [address] Dr. Jessica Mosqueda Creatinine [Mass/Vol] 1.86 mg/dL Critically high 0.55-1.02 [facility] Comment on above: Performed By: #### L IPID, CMP, TSH, T7 #### [facility] [address] [place] [address] Dr. Jessica Mosqueda EGFR-AF SWISS 36 mL/min/1.73m2 Critically low >=60 [facility] Comment on above: Performed By: #### L IPID, CMP, TSH, T7 #### [facility] [address] [place] [address] Dr. Jessica Mosqueda EGFR-NON AF SWISS 30 mL/min/1.73m2 Critically low >=60 [facility] Comment on above: Performed By: #### L IPID, CMP, TSH, T7 #### [facility] [address] [place] [address] Dr. Jessica Mosqueda Globulin (S) [Mass/Vol] 3.4 g/dL Normal [facility] Comment on above: Performed By: #### L IPID, CMP, TSH, T7 #### [facility] [address] [address] [address] Jessica Mosqueda Glucose [Mass/Vol] 84 mg/dL Normal 74-[address] [facility] Comment on above: Performed By: #### L IPID, CMP, TSH, T7 #### [facility] [address] [address] [address] Jessica Mosqueda Potassium [Moles/Vol] 4.2 mmol/L Normal 3.5-5.1 [facility] Comment on above: Performed By: #### L IPID, CMP, TSH, T7 #### [facility] [address] [address] [address] Jessica Mosqueda Protein [Mass/Vol] 7.4 g/dL Normal 6.4-8.[address] [facility] Comment on above: Performed By: #### L IPID, CMP, TSH, T7 #### [facility] [address] [place] [address] Dr. Jessica Mosqueda Sodium [Moles/Vol] 139 mmol/L Normal 136-[address] [facility] Comment on above: Performed By: #### L IPID, CMP, TSH, T7 #### [facility] [address] [place] [address] Dr. Jessica Mosqueda Urea nitrogen [Mass/Vol] 26.0 mg/dL Critically high 7.0-18.0 [facility] Comment on above: Performed By: #### L IPID, CMP, TSH, T7 #### [facility] [address] [address] [address] Jessica Mosqueda Urea nitrogen/Creatinine [Mass ratio] 14.0 mg/mg Normal [facility] Comment on above: Performed By: #### L IPID, CMP, TSH, T7 #### [facility] [address] [place] [address] Dr. Jessica Mosqueda UA RANDOMon 06-29-2022 Bilirubin Ql (U) Negative Normal NEGATIVE [facility] Comment on above: Performed By: #### L IPID, CMP, TSH, T7 #### [facility] [address] [place] [address] Dr. Jessica Mosqueda Clarity (U) CLEAR Normal CLEAR [facility] Comment on above: Performed By: #### L IPID, CMP, TSH, T7 #### [facility] [address] [address] [address] Jessica Mosqueda Color (U) LT. YELLOW Normal YELLOW [facility] Comment on above: Performed By: #### L IPID, CMP, TSH, T7 #### [facility] [address] [address] [address] Jessica Mosqueda Glucose Ql (U) Negative Normal NEGATIVE [facility] Comment on above: Performed By: #### L IPID, CMP, TSH, T7 #### [facility] [address] [place] [address] Dr. Jessica Mosqueda Hemoglobin Ql (U) Negative Normal NEGATIVE [facility] Comment on above: Performed By: #### L IPID, CMP, TSH, T7 #### [facility] [address] [address] [address] Jessica Mosqueda Ketones Ql (U) Negative Normal NEGATIVE [facility] Comment on above: Performed By: #### L IPID, CMP, TSH, T7 #### [facility] [address] [place] [address] Dr. Jessica Mosqueda LEUKOCYTES Negative Normal NEGATIVE [facility] Comment on above: Performed By: #### L IPID, CMP, TSH, T7 #### [facility] [address] [address] [address] Jessica Mosqueda Nitrite Ql (U) Negative Normal NEGATIVE [facility] Comment on above: Performed By: #### L IPID, CMP, TSH, T7 #### [facility] [address] [address] [address] Jessica Mosqueda pH (U) 6.0 [pH] Normal 5-9 [facility] Comment on above: Performed By: #### L IPID, CMP, TSH, T7 #### [facility] [address] [place] [address] Dr. Jessica Mosqueda SPEC GRAVITY <=1.005 Abnormal 1.005-<=1.[address] [facility] Comment on above: Performed By: #### L IPID, CMP, TSH, T7 #### [facility] [address] [address] [address] Jessica Mosqueda UA PROTEIN Negative Normal NEGATIVE/ TRACE [facility] Comment on above: Performed By: #### L IPID, CMP, TSH, T7 #### [facility] [address] [place] [address] Dr. Jessica Mosqueda Urobilinogen Qn (U) 0.2 {Fran'U}/dL Normal 0.2 - 1. 0 [facility] Comment on above: Performed By: #### L IPID, CMP, TSH, T7 #### [facility] [address] [place] [address] Dr. Jessica Mosqueda PROF 14(COMP METB)on 022 Albumin [Mass/Vol] 3.9 g/dL Normal 3.4-5.0 [facility] Comment on above: Performed By: #### P THINT #### [facility] [address] [place] [address] Dr. Jessica Mosqueda Albumin/Globulin [Mass ratio] 1.1 {ratio} Normal [facility] Comment on above: Performed By: #### P THINT #### [facility] [address] [place] [address] Dr. Jessica Mosqueda ALP [Catalytic activity/Vol] 36 U/L Critically low 46-116 [facility] Comment on above: Performed By: #### P THINT #### [facility] [address] [place] [address] Dr. Jessica Mosqueda ALT [Catalytic activity/Vol] 17 U/L Normal 14-59 [facility] Comment on above: Performed By: #### P THINT #### [facility] [address] [place] [address] Dr. Jessica Mosqueda Anion gap [Moles/Vol] 13.9 mmol/L Normal [facility] Comment on above: Performed By: #### P THINT #### [facility] [address] [place] [address] Dr. Jessica Mosqueda AST [Catalytic activity/Vol] 11 U/L Critically low 15-37 [facility] Comment on above: Performed By: #### P THINT #### [facility] [address] [address] [address] Jessica Mosqueda Bilirubin [Mass/Vol] 0.3 mg/dL Normal 0.2-1.0 [facility] Comment on above: Performed By: #### P THINT #### [facility] [address] [address] [address] Jessica Mosqueda Calcium [Mass/Vol] 9.2 mg/dL Normal 8.5-10.1 [facility] Comment on above: Performed By: #### P THINT #### [facility] [address] [place] [address] Dr. Jessica Mosqueda Chloride [Moles/Vol] 105 mmol/L Normal 98-107 [facility] Comment on above: Performed By: #### P THINT #### [facility] [address] [address] [address] Jessica Mosqueda CO2 [Moles/Vol] 26.5 mmol/L Normal 21.0-32.0 [facility] Comment on above: Performed By: #### P THINT #### [facility] [address] [place] [address] Dr. Jessica Mosqueda Creatinine [Mass/Vol] 2.06 mg/dL Critically high 0.55-1.02 [facility] Comment on above: Performed By: #### P THINT #### [facility] [address] [address] [address] Jessica Mosqueda EGFR-AF SWISS 32 mL/min/1.73m2 Critically low >=60 [facility] Comment on above: Performed By: #### P THINT #### [facility] [address] [place] [address] Dr. Jessica Mosqueda EGFR-NON AF SWISS 27 mL/min/1.73m2 Critically low >=60 [facility] Comment on above: Performed By: #### P THINT #### [facility] [address] [place] [address] Dr. Jessica Mosqueda Globulin (S) [Mass/Vol] 3.5 g/dL Normal [facility] Comment on above: Performed By: #### P THINT #### [facility] [address] [place] [address] Dr. Jessica Mosqueda Glucose [Mass/Vol] 75 mg/dL Normal 74-106 [facility] Comment on above: Performed By: #### P THINT #### [facility] [address] [place] [address] Dr. Jessica Mosqueda Potassium [Moles/Vol] 4.4 mmol/L Normal 3.5-5.1 [facility] Comment on above: Performed By: #### P THINT #### [facility] [address] [place] [address] Dr. Jessica Mosqueda Protein [Mass/Vol] 7.4 g/dL Normal 6.4-8.[address] [facility] Comment on above: Performed By: #### P THINT #### [facility] [address] [place] [address] Dr. Jessica Mosqueda Sodium [Moles/Vol] 141 mmol/L Normal 136-145 [facility] Comment on above: Performed By: #### P THINT #### [facility] [address] [place] [address] Dr. Jessica Mosqueda Urea nitrogen [Mass/Vol] 37.0 mg/dL Critically high 7.0-18.0 [facility] Comment on above: Performed By: #### P THINT #### [facility] [address] [place] [address] Dr. Jessica Mosqueda Urea nitrogen/Creatinine [Mass ratio] 18.0 mg/mg Normal [facility] Comment on above: Performed By: #### P THINT #### [facility] [address] [place] [address] Dr. Jessica Mosqueda PROF 14(COMP METB)on 022 Albumin [Mass/Vol] 3.9 g/dL Normal 3.4-5.0 [facility] Comment on above: Performed By: #### C MP #### [facility] [address] [address] [address] Jessica Mosqueda Albumin/Globulin [Mass ratio] 1.2 {ratio} Normal [facility] Comment on above: Performed By: #### C MP #### [facility] [address] [place] [address] Dr. Jessica Mosqueda ALP [Catalytic activity/Vol] 32 U/L Critically low 46-116 [facility] Comment on above: Performed By: #### C MP #### [facility] [address] [address] [address] Jessica Mosqueda ALT [Catalytic activity/Vol] 12 U/L Critically low 14-59 [facility] Comment on above: Performed By: #### C MP #### [facility] [address] [place] [address] Dr. Jessica Mosqueda Anion gap [Moles/Vol] 13.6 mmol/L Normal [facility] Comment on above: Performed By: #### C MP #### [facility] [address] [place] [address] Dr. Jessica Mosqueda AST [Catalytic activity/Vol] 15 U/L Normal 15-37 [facility] Comment on above: Performed By: #### C MP #### [facility] [address] [place] [address] Dr. Jessica Mosqueda Bilirubin [Mass/Vol] 0.2 mg/dL Normal 0.2-1.0 [facility] Comment on above: Performed By: #### C MP #### [facility] [address] [place] [address] Dr. Jessica Mosqueda Calcium [Mass/Vol] 9.2 mg/dL Normal 8.5-10.1 [facility] Comment on above: Performed By: #### C MP #### [facility] [address] [place] [address] Dr. Jessica Mosqueda Chloride [Moles/Vol] 105 mmol/L Normal 98-107 [facility] Comment on above: Performed By: #### C MP #### [facility] [address] [place] [address] Dr. Jessica Mosqueda CO2 [Moles/Vol] 26.0 mmol/L Normal 21.0-32.0 [facility] Comment on above: Performed By: #### C MP #### [facility] [address] [address] [address] Jessica Mosqueda Creatinine [Mass/Vol] 1.98 mg/dL Critically high 0.55-1.02 [facility] Comment on above: Performed By: #### C MP #### [facility] [address] [address] [address] Jessica Mosqueda EGFR-AF SWISS 34 mL/min/1.73m2 Critically low >=60 [facility] Comment on above: Performed By: #### C MP #### [facility] [address] [place] [address] Dr. Jessica Mosqueda EGFR-NON AF SWISS 28 mL/min/1.73m2 Critically low >=60 [facility] Comment on above: Performed By: #### C MP #### [facility] [address] [place] [address] Dr. Jessica Mosqueda Globulin (S) [Mass/Vol] 3.3 g/dL Normal [facility] Comment on above: Performed By: #### C MP #### [facility] [address] [place] [address] Dr. Jessica Mosqueda Glucose [Mass/Vol] 93 mg/dL Normal 74-106 [facility] Comment on above: Performed By: #### C MP #### [facility] [address] [place] [address] Dr. Jessica Mosqueda Potassium [Moles/Vol] 4.6 mmol/L Normal 3.5-5.1 [facility] Comment on above: Performed By: #### C MP #### [facility] [address] [address] [address] Jessica Mosqueda Protein [Mass/Vol] 7.2 g/dL Normal 6.4-8.[address] [facility] Comment on above: Performed By: #### C MP #### [facility] [address] [address] [address] Jessica Mosqueda Sodium [Moles/Vol] 140 mmol/L Normal 136-145 [facility] Comment on above: Performed By: #### C MP #### [facility] [address] [address] [address] Jessica Mosqueda Urea nitrogen [Mass/Vol] 23.0 mg/dL Critically high 7.0-18.0 [facility] Comment on above: Performed By: #### C MP #### [facility] [address] [place] [address] Dr. Jessica Mosqueda Urea nitrogen/Creatinine [Mass ratio] 11.6 mg/mg Normal [facility] Comment on above: Performed By: #### C MP #### [facility] [address] [place] [address] Dr. Jessica Mosqueda PTH INTACTon 03-23-2022 PTH, Intact 71 pg/mL Critically high 15-65 [facility] Comment on above: Performed By: #### P THINT #### [facility] [address] [place] [address] Dr. Jessica Mosqueda HEMOGRAM AND PLATELon 2021 Hematocrit (Bld) [Volume fraction] 37.8 % Normal 36.0-48.0 [facility] Comment on above: Performed By: #### H H #### [facility] [address] [place] [address] Dr. Jessica Mosqueda Hemoglobin (Bld) [Mass/Vol] 12.3 g/dL Normal 12.0-16.0 [facility] Comment on above: Performed By: #### H H #### [facility] [address] [place] [address] Dr. Jessica Mosqueda MCH (RBC) [Entitic mass] 29.6 pg Normal 26.7-34.0 [facility] Comment on above: Performed By: #### H H #### [facility] [address] [place] [address] Dr. Jessica Mosqueda MCHC (RBC) [Mass/Vol] 32.5 g/dL Normal 29.9-35.2 [facility] Comment on above: Performed By: #### H H #### [facility] [address] [place] [address] Dr. Jessica Mosqueda MCV (RBC) [Entitic vol] 90.9 fL Normal 81.0-99.0 [facility] Comment on above: Performed By: #### H H #### [facility] [address] [place] [address] Dr. Jessica Mosqueda PLT 158 103/ul Normal 150-450 [facility] Comment on above: Performed By: #### H H #### [facility] [address] [place] [address] Dr. Jessica Mosqueda RBC 4.16 106/ul Critically low 4.20-5.[address] [facility] Comment on above: Performed By: #### H H #### [facility] [address] [place] [address] Dr. Jessica Mosqueda WBC 10.3 103/ul Normal 4.0-11.0 [facility] Comment on above: Performed By: #### H H #### [facility] [address] [place] [address] Dr. Jessica Mosqueda PHOSPHORUSon 03-22-2022 Phosphate [Mass/Vol] 4.7 mg/dL Normal 2.6-4.7 [facility] Comment on above: Performed By: #### L IPID, CMP, TSH, T7 #### [facility] [address] [place] [address] Dr. Jessica Mosqueda PROF 14(COMP METB)on 022 Albumin [Mass/Vol] 4.1 g/dL Normal 3.4-5.0 [facility] Comment on above: Performed By: #### L IPID, CMP, TSH, T7 #### [facility] [address] [place] [address] Dr. Jessica Mosqueda Albumin/Globulin [Mass ratio] 1.2 {ratio} Normal [facility] Comment on above: Performed By: #### L IPID, CMP, TSH, T7 #### [facility] [address] [place] [address] Dr. Jessica Mosqueda ALP [Catalytic activity/Vol] 36 U/L Critically low 46-116 [facility] Comment on above: Performed By: #### L IPID, CMP, TSH, T7 #### [facility] [address] [address] [address] Jessica Mosqueda ALT [Catalytic activity/Vol] 16 U/L Normal 14-59 [facility] Comment on above: Performed By: #### L IPID, CMP, TSH, T7 #### [facility] [address] [place] [address] Dr. Jessica Mosqueda Anion gap [Moles/Vol] 15.4 mmol/L Normal [facility] Comment on above: Performed By: #### L IPID, CMP, TSH, T7 #### [facility] [address] [place] [address] Dr. Jessica Mosqueda AST [Catalytic activity/Vol] 12 U/L Critically low 15-37 [facility] Comment on above: Performed By: #### L IPID, CMP, TSH, T7 #### [facility] [address] [place] [address] Dr. Jessica Mosqueda Bilirubin [Mass/Vol] 0.6 mg/dL Normal 0.2-1.0 [facility] Comment on above: Performed By: #### L IPID, CMP, TSH, T7 #### [facility] [address] [place] [address] Dr. Jessica Mosqueda Calcium [Mass/Vol] 9.3 mg/dL Normal 8.5-10.1 [facility] Comment on above: Performed By: #### L IPID, CMP, TSH, T7 #### [facility] [address] [address] [address] Jessica Mosqueda Chloride [Moles/Vol] 103 mmol/L Normal 98-107 [facility] Comment on above: Performed By: #### L IPID, CMP, TSH, T7 #### [facility] [address] [place] [address] Dr. Jessica Mosqueda CO2 [Moles/Vol] 24.4 mmol/L Normal 21.0-32.0 [facility] Comment on above: Performed By: #### L IPID, CMP, TSH, T7 #### [facility] [address] [place] [address] Dr. Jessica Mosqueda Creatinine [Mass/Vol] 2.04 mg/dL Critically high 0.55-1.02 [facility] Comment on above: Performed By: #### L IPID, CMP, TSH, T7 #### [facility] [address] [address] [address] Jessica Mosqueda EGFR-AF SWISS 33 mL/min/1.73m2 Critically low >=60 [facility] Comment on above: Performed By: #### L IPID, CMP, TSH, T7 #### [facility] [address] [address] [address] Jessica Mosqueda EGFR-NON AF SWISS 27 mL/min/1.73m2 Critically low >=60 [facility] Comment on above: Performed By: #### L IPID, CMP, TSH, T7 #### [facility] [address] [place] [address] Dr. Jessica Mosqueda Globulin (S) [Mass/Vol] 3.3 g/dL Normal [facility] Comment on above: Performed By: #### L IPID, CMP, TSH, T7 #### [facility] [address] [address] [address] Jessica Mosqueda Glucose [Mass/Vol] 84 mg/dL Normal 74-[address] [facility] Comment on above: Performed By: #### L IPID, CMP, TSH, T7 #### [facility] [address] [address] [address] Jessica Mosqueda Potassium [Moles/Vol] 3.8 mmol/L Normal 3.5-5.1 [facility] Comment on above: Performed By: #### L IPID, CMP, TSH, T7 #### [facility] [address] [address] [address] Jessica Mosqueda Protein [Mass/Vol] 7.4 g/dL Normal 6.4-8.[address] [facility] Comment on above: Performed By: #### L IPID, CMP, TSH, T7 #### [facility] [address] [address] [address] Jessica Mosqueda Sodium [Moles/Vol] 139 mmol/L Normal 136-145 [facility] Comment on above: Performed By: #### L IPID, CMP, TSH, T7 #### [facility] [address] [place] [address] Dr. Jessica Mosqueda Urea nitrogen [Mass/Vol] 30.0 mg/dL Critically high 7.0-18.0 [facility] Comment on above: Performed By: #### L IPID, CMP, TSH, T7 #### [facility] [address] [place] [address] Dr. Jessica Mosqueda Urea nitrogen/Creatinine [Mass ratio] 14.7 mg/mg Normal [facility] Comment on above: Performed By: #### L IPID, CMP, TSH, T7 #### [facility] [address] [place] [address] Dr. Jessica Mosqueda UA RANDOMon 03-22-2022 Bilirubin Ql (U) Negative Normal NEGATIVE [facility] Comment on above: Performed By: #### L IPID, CMP, TSH, T7 #### [facility] [address] [place] [address] Dr. Jessica Mosqueda Clarity (U) CLEAR Normal CLEAR [facility] Comment on above: Performed By: #### L IPID, CMP, TSH, T7 #### [facility] [address] [place] [address] Dr. Jessica Mosqueda Color (U) LT. YELLOW Normal YELLOW [facility] Comment on above: Performed By: #### L IPID, CMP, TSH, T7 #### [facility] [address] [place] [address] Dr. eJssica Mosqueda Glucose Ql (U) Negative Normal NEGATIVE [facility] Comment on above: Performed By: #### L IPID, CMP, TSH, T7 #### [facility] [address] [place] [address] Dr. Jessica Mosqueda Hemoglobin Ql (U) Negative Normal NEGATIVE [facility] Comment on above: Performed By: #### L IPID, CMP, TSH, T7 #### [facility] [address] [place] [address] Dr. Jessica Mosqueda Ketones Ql (U) Negative Normal NEGATIVE [facility] Comment on above: Performed By: #### L IPID, CMP, TSH, T7 #### [facility] [address] [address] [address] Jessica Mosqueda LEUKOCYTES Negative Normal NEGATIVE [facility] Comment on above: Performed By: #### L IPID, CMP, TSH, T7 #### [facility] [address] [address] [address] Jessica Mosqueda Nitrite Ql (U) Negative Normal NEGATIVE [facility] Comment on above: Performed By: #### L IPID, CMP, TSH, T7 #### [facility] [address] [address] [address] Jessica Mosqueda pH (U) 5.5 [pH] Normal 5-9 [facility] Comment on above: Performed By: #### L IPID, CMP, TSH, T7 #### [facility] [address] [place] [address] Dr. Jessica Mosqueda SPEC GRAVITY 1.005 Normal 1.005-<=1.[address] [facility] Comment on above: Performed By: #### L IPID, CMP, TSH, T7 #### [facility] [address] [address] [address] Jessica Mosqueda UA PROTEIN Negative Normal NEGATIVE/ TRACE [facility] Comment on above: Performed By: #### L IPID, CMP, TSH, T7 #### [facility] [address] [address] [address] Jessica Mosqueda Urobilinogen Qn (U) 0.2 {Fran'U}/dL Normal 0.2 - 1. 0 [facility] Comment on above: Performed By: #### L IPID, CMP, TSH, T7 #### [facility] [address] [place] [address] Dr. Jessica Mosqueda URINE T PROTEIN CREAT RATIOo n 03-22-2022 UR TOTAL PROTEIN <6.0 Normal <=12.0 [facility] Comment on above: Performed By: #### L IPID, CMP, TSH, T7 #### [facility] [address] [place] [address] Dr. Jessica Mosqueda URINE CREAT 23.46 mg/dL Normal 20.00-300.00 [facility] Comment on above: Performed By: #### L IPID, CMP, TSH, T7 #### [facility] [address] [address] [address] Jessica Mosqueda PROF 14(COMP METB)on 022 Albumin [Mass/Vol] 3.8 g/dL Normal 3.4-5.0 [facility] Comment on above: Performed By: #### L IPID, CMP, TSH, T7 #### [facility] [address] [address] [address] Jessica Mosqueda Albumin/Globulin [Mass ratio] 1.3 {ratio} Normal [facility] Comment on above: Performed By: #### L IPID, CMP, TSH, T7 #### [facility] [address] [address] [address] Jessica Mosqueda ALP [Catalytic activity/Vol] 35 U/L Critically low 46-116 [facility] Comment on above: Performed By: #### L IPID, CMP, TSH, T7 #### [facility] [address] [address] [address] Jessica Mosqueda ALT [Catalytic activity/Vol] 17 U/L Normal 14-59 [facility] Comment on above: Performed By: #### L IPID, CMP, TSH, T7 #### [facility] [address] [address] [address] Jessica Mosqueda Anion gap [Moles/Vol] 12.2 mmol/L Normal [facility] Comment on above: Performed By: #### L IPID, CMP, TSH, T7 #### [facility] [address] [address] [address] Jessica Mosqueda AST [Catalytic activity/Vol] 13 U/L Critically low 15-37 [facility] Comment on above: Performed By: #### L IPID, CMP, TSH, T7 #### [facility] [address] [address] [address] Jessica Mosqueda Bilirubin [Mass/Vol] 0.4 mg/dL Normal 0.2-1.0 [facility] Comment on above: Performed By: #### L IPID, CMP, TSH, T7 #### [facility] [address] [address] [address] Jessica Mosqueda Calcium [Mass/Vol] 8.6 mg/dL Normal 8.5-10.1 [facility] Comment on above: Performed By: #### L IPID, CMP, TSH, T7 #### [facility] [address] [address] [address] Jessica Mosqueda Chloride [Moles/Vol] 106 mmol/L Normal 98-107 [facility] Comment on above: Performed By: #### L IPID, CMP, TSH, T7 #### [facility] [address] [address] [address] Jessica Mosqueda CO2 [Moles/Vol] 26.1 mmol/L Normal 21.0-32.0 [facility] Comment on above: Performed By: #### L IPID, CMP, TSH, T7 #### [facility] [address] [place] [address] Dr. Jessica Mosqueda Creatinine [Mass/Vol] 1.76 mg/dL Critically high 0.55-1.02 [facility] Comment on above: Performed By: #### L IPID, CMP, TSH, T7 #### [facility] [address] [place] [address] Dr. Jessica Mosqueda EGFR-AF SWISS 39 mL/min/1.73m2 Critically low >=60 [facility] Comment on above: Performed By: #### L IPID, CMP, TSH, T7 #### [facility] [address] [place] [address] Dr. Jessica Mosqueda EGFR-NON AF SWISS 32 mL/min/1.73m2 Critically low >=60 [facility] Comment on above: Performed By: #### L IPID, CMP, TSH, T7 #### [facility] [address] [address] [address] Jessica Mosqueda Globulin (S) [Mass/Vol] 3.0 g/dL Normal [facility] Comment on above: Performed By: #### L IPID, CMP, TSH, T7 #### [facility] [address] [address] [address] Jessica Mosqueda Glucose [Mass/Vol] 81 mg/dL Normal 74-[address] [facility] Comment on above: Performed By: #### L IPID, CMP, TSH, T7 #### [facility] [address] [place] [address] Dr. Jessica Mosqueda Potassium [Moles/Vol] 4.3 mmol/L Normal 3.5-5.1 [facility] Comment on above: Performed By: #### L IPID, CMP, TSH, T7 #### [facility] [address] [address] [address] Jessica Mosqueda Protein [Mass/Vol] 6.8 g/dL Normal 6.4-8.[address] [facility] Comment on above: Performed By: #### L IPID, CMP, TSH, T7 #### [facility] [address] [place] [address] Dr. Jessica Mosqueda Sodium [Moles/Vol] 140 mmol/L Normal 136-[address] [facility] Comment on above: Performed By: #### L IPID, CMP, TSH, T7 #### [facility] [address] [address] [address] Jessica Mosqueda Urea nitrogen [Mass/Vol] 20.0 mg/dL Critically high 7.0-18.0 [facility] Comment on above: Performed By: #### L IPID, CMP, TSH, T7 #### [facility] [address] [place] [address] Dr. Jessica Mosqueda Urea nitrogen/Creatinine [Mass ratio] 11.4 mg/mg Normal [facility] Comment on above: Performed By: #### L IPID, CMP, TSH, T7 #### [facility] [address] [place] [address] Dr. Jessica Mosqueda PROF 14(COMP METB)on 022 Albumin [Mass/Vol] 4.0 g/dL Normal 3.4-5.[address] [facility] Comment on above: Performed By: #### L IPID, CMP, TSH, T7 #### [facility] [address] [address] [address] Jessica Mosqueda Albumin/Globulin [Mass ratio] 1.2 {ratio} Normal [facility] Comment on above: Performed By: #### L IPID, CMP, TSH, T7 #### [facility] [address] [address] [address] Jessica Mosqueda ALP [Catalytic activity/Vol] 31 U/L Critically low 46-116 [facility] Comment on above: Performed By: #### L IPID, CMP, TSH, T7 #### [facility] [address] [address] [address] Jessica Mosqueda ALT [Catalytic activity/Vol] 19 U/L Normal 14-59 [facility] Comment on above: Performed By: #### L IPID, CMP, TSH, T7 #### [facility] [address] [place] [address] Dr. Jessica Mosqueda Anion gap [Moles/Vol] 13.7 mmol/L Normal [facility] Comment on above: Performed By: #### L IPID, CMP, TSH, T7 #### [facility] [address] [address] [address] Jessica Mosqueda AST [Catalytic activity/Vol] 12 U/L Critically low 15-37 [facility] Comment on above: Performed By: #### L IPID, CMP, TSH, T7 #### [facility] [address] [address] [address] Jessica Mosqueda Bilirubin [Mass/Vol] 0.3 mg/dL Normal 0.2-1.0 [facility] Comment on above: Performed By: #### L IPID, CMP, TSH, T7 #### [facility] [address] [place] [address] Dr. Jessica Mosqueda Calcium [Mass/Vol] 9.3 mg/dL Normal 8.5-10.1 [facility] Comment on above: Performed By: #### L IPID, CMP, TSH, T7 #### [facility] [address] [place] [address] Dr. Jessica Mosqueda Chloride [Moles/Vol] 106 mmol/L Normal 98-107 [facility] Comment on above: Performed By: #### L IPID, CMP, TSH, T7 #### [facility] [address] [address] [address] Jsesica Mosqueda CO2 [Moles/Vol] 25.4 mmol/L Normal 21.0-32.0 [facility] [facility] Comment on above: Performed By: #### L IPID, CMP, TSH, T7 #### [facility] [address] [address] [address] Jessica Mosqueda Creatinine [Mass/Vol] 1.84 mg/dL Critically high 0.55-1.02 [facility] Comment on above: Performed By: #### L IPID, CMP, TSH, T7 #### [facility] [address] [address] [address] Jessica Mosqueda EGFR-AF SWISS 37 mL/min/1.73m2 Critically low >=60 [facility] Comment on above: Performed By: #### L IPID, CMP, TSH, T7 #### [facility] [address] [address] [address] Jessica Mosqueda EGFR-NON AF SWISS 30 mL/min/1.73m2 Critically low >=60 [facility] Comment on above: Performed By: #### L IPID, CMP, TSH, T7 #### [facility] [address] [address] [address] Jessica Mosqueda Globulin (S) [Mass/Vol] 3.4 g/dL Normal [facility] Comment on above: Performed By: #### L IPID, CMP, TSH, T7 #### [facility] [address] [address] [address] Jessica Mosqueda Glucose [Mass/Vol] 99 mg/dL Normal 74-106 [facility] Comment on above: Performed By: #### L IPID, CMP, TSH, T7 #### [facility] [address] [address] [address] Jessica Mosqueda Potassium [Moles/Vol] 4.1 mmol/L Normal 3.5-5.1 [facility] Comment on above: Performed By: #### L IPID, CMP, TSH, T7 #### [facility] [address] [address] [address] Jessica Mosqueda Protein [Mass/Vol] 7.4 g/dL Normal 6.4-8.[address] [facility] Comment on above: Performed By: #### L IPID, CMP, TSH, T7 #### [facility] [address] [address] [address] Jessica Mosqueda Sodium [Moles/Vol] 141 mmol/L Normal 136-[address] [facility] Comment on above: Performed By: #### L IPID, CMP, TSH, T7 #### [facility] [address] [place] [address] Dr. Jessica Mosqueda Urea nitrogen [Mass/Vol] 25.0 mg/dL Critically high 7.0-18.0 [facility] Comment on above: Performed By: #### L IPID, CMP, TSH, T7 #### [facility] [address] [address] [address] Jessica Mosqueda Urea nitrogen/Creatinine [Mass ratio] 13.6 mg/mg Normal [facility] Comment on above: Performed By: #### L IPID, CMP, TSH, T7 #### [facility] [address] [place] [address] Dr. Jessica ALTAMIRANOPon 09-04-2019 OVS Visit (SP) Office (HE[place]AS[place]) ISABEL RIVERA ([id number]) 1980 F Date Time Provider Department 09/04/19 3:45 PM LUIS ANGEL HALL During your visit today, we recorded the following information about you: Temperature Pulse Respiration Blood pressure 97.6 degrees 66/minute 18/minute 115/66 Weight Height 82.2 kg 1.676 m Luis Angel Agrawal Libradotiaraveronica, 09/06/2019 9:21 AM Signed PATIENT NAME: Isabel Rivera REFERRING PHYSICIAN: Timothy Mills MD [address] [place] [address] [place] [address] PRIMARY CARE PHYSICIAN: Maren James MD CHIEF [...] did not have a lupus anticoagulant. Protein WHAT JOB TITLES MEAN were within expected ranges. She had negative [...] 2017. 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 Follows with Dr. Bateman, vascular. She does exercise slightly 3 days a week and works a [employer] in [place] [facility] [place]. Medications as of September 2017 included only [...] questions satisfactorily.. Ankit Hall D.O. Medical Oncologist [place], [place] Cc. Dr. Bateman. Referring Provider: LUIS ANGEL HALL [[id number]] Allergies As of Date: 09/04/2019 Noted Allergy [...] LUIS ANGEL HALL DO on 09/06/19 Normal [facility] PROGRESSon 09-04-2019 PROGRESS HNO ID: [id number] Author: Luis Angel Hall Service: ? Author Type: Physician Type: Progress Notes Filed: 09/06/2019 9:21 AM Note Text: PATIENT NAME: Isabel Rivera REFERRING PHYSICIAN: Timothy Mills MD [address] [place] [address] [place] [address] PRIMARY CARE PHYSICIAN: Maren James MD CHIEF [...] did not have a lupus anticoagulant. Protein WHAT JOB TITLES MEAN were within expected ranges. She had negative [...] 2017. 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 Follows with Dr. Bateman, vascular. She does exercise slightly 3 days a week and works a [employer] in [place] [place]. Medications as of September 2017 included only [...] questions satisfactorily.. Ankit Hall D.O. Medical Oncologist [place], [place] Cc. Dr. Bateman. [facility] (SP[facility] Office (HE[facility]) CHULAISABEL LEDBETTER ([id number]) 1980 F Date Time Provider Department 07/30/19 3:45 PM LUIS ANGEL HALL HEMACL During your visit today, we recorded the following information about you: Temperature Pulse Respiration Blood pressure 98.4 degrees 61/minute 16/minute 107/69 Weight Height 80.6 kg 1.676 m Luis Angel Hall DO 08/02/2019 11:50 AM Signed PATIENT NAME: Isabel Rivera REFERRING PHYSICIAN: Timothy Mills MD [address] [place] [address] [place] [address] PRIMARY CARE PHYSICIAN: Maren James MD CHIEF [...] TIBC - CBC + DIFF (FOR REMOTE [facility] USE) - BASIC METABOLIC PNL [...] 2017. 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 Follows with Dr. Bateman, vascular. She does exercise slightly 3 days a week and works a [employer] in [place] [place]. Medications as of September 2017 included only [...] questions satisfactorily.. Ankit Hall D.O. Medical Oncologist [facility] [place], [place] Cc. Dr. Bateman. Referring Provider: TIMOTHY MILLS [[id number]] Allergies As of Date: 07/30/2019 (Not on File) Date Reviewed: 07/30/2019 Reviewed by: Lavonne Borrego - Fully Assessed Reason for Visit: Consult [173] Primary Visit Diagnosis:Acute deep vein thrombosis (DVT) of proximal vein of both lower extremities (HCC) [I82.4Y3] Order(s):US LEG VEIN DVT [facility] [[id number]] Order #: [id number] FUTURE FACTOR V LEIDEN/PCR [SQFVLEID] Order #: [id number] FUTURE PROTHROMBIN GENE PCR [SQPTGENE] Order #: [id number] FUTURE PROTEIN C FUNCT [SQPRCFUN] Order #: [id number] FUTURE PROTEIN S CLOTTABLE [SQPRSCLT] Order #: [id number] FUTURE ANTITHROMBIN ACTIVITY [VFXY9VMA] Order #: [id number] FUTURE LUPUS ANTICOAG PL [SQLUPUSP] Order #: [id number] FUTURE B 2 GPI IGG AND IGM [[id number]] Order #: [id number] FUTURE ANTI-CARDIOLIPIN AB [SQCARDIO] Order #: [id number] FUTURE HOMOCYSTEINE [SQHOMCYS] Order #: [id number] FUTURE FERRITIN BLD [SQFERR] Order #: [id number] FUTURE IRON + TIBC [SQIRON] Order #: [id number] FUTURE CBC + DIFF (FOR REMOTE [facility] USE) [SQRCBCDF] Order #: [id number] FUTURE BASIC METABOLIC PNL [SQBMP] Order #: [id number] FUTURE HEPATIC FUNCTION PNL [SQHFP] Order #: [id number] FUTURE Disposition: Return labs today. f/u 4 [...] by LUIS ANGEL HALL DO on 08/02/19 [facility] PROGRESSon 07-30-2019 PROGRESS HNO ID: [id number] Author: Luis Angel Hall Service: ? Author Type: Physician Type: Progress Notes Filed: 08/02/2019 11:50 AM Note Text: PATIENT NAME: Isabel Rivera REFERRING PHYSICIAN: Timothy Mills MD [address] [place] [address] [place] [address] PRIMARY CARE PHYSICIAN: Maren James MD CHIEF [...] 2017. 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 Follows with Dr. Bateman, vascular. She does exercise slightly 3 days a week and works a [employer] in [place]. Medications as of September 2017 included only [...] questions satisfactorily.. Ankit Hall D.O. Medical Oncologist [facility] [place], [place] Cc. Dr. Bateman. Normal [facility] Vital Signs Date Time Vital Sign Value Performing Clinician Facility 07-10-2024 10:0500 Body height 167.64 cm [facility] 07-10-2024 10:21-0500 Body mass index (BMI) [Ratio] 32.6 kg/m2 [facility] 07-10-2024 10:0500 Body temperature 97 [degF] [facility] 07-10-2024 10:-0500 Body weight 91.68 kg [facility] 07-10-2024 10:21-0500 Diastolic blood pressure 104 mm[Hg] [facility] 07-10-2024 10:-0500 Heart rate 62 /min [facility] 07-10-2024 10:21-0500 Respiratory rate 16 /min [facility] 07-10-2024 10:21-0500 SaO2% (BldA) [Mass fraction] 100 % [facility] 07-10-2024 10:21-0500 Systolic blood pressure 150 mm[Hg] [facility] 03-27-2024 16:25-0400 Body height 167.64 cm [facility] 03-27-2024 16:25-0400 Body mass index (BMI) [Ratio] 32.3 kg/m2 [facility] 03-27-2024 16:25-0400 Body temperature 96.9 [degF] [facility] 03-27-2024 16:25-0400 Body weight 90.74 kg [facility] 03-27-2024 16:25-0400 Diastolic blood pressure 78 mm[Hg] [facility] 03-27-2024 16:25-0400 Heart rate 53 /min [facility] 03-27-2024 16:25-0400 Respiratory rate 16 /min [facility] 03-27-2024 16:25-0400 SaO2% (BldA) [Mass fraction] 100 % [facility] 03-27-2024 16:25-0400 Systolic blood pressure 117 mm[Hg] [facility] 01-10-2024 15:58-0400 Body height 167.64 cm [facility] 01-10-2024 15:58-0400 Body mass index (BMI) [Ratio] 33.5 kg/m2 [facility] 01-10-2024 15:58-0400 Body temperature 97.2 [degF] [facility] 01-10-2024 15:58-0400 Body weight 94.34 kg [facility] 01-10-2024 15:58-0400 Diastolic blood pressure 84 mm[Hg] [facility] 01-10-2024 15:58-0400 Heart rate 68 /min [facility] 01-10-2024 15:58-0400 Respiratory rate 16 /min [facility] 01-10-2024 15:58-0400 SaO2% (BldA) [Mass fraction] 100 % [facility] 01-10-2024 15:58-0400 Systolic blood pressure 130 mm[Hg] [facility] 10-11-2023 15:51-0500 Body height 167.64 cm [facility] 10-11-2023 15:51-0500 Body mass index (BMI) [Ratio] 33.6 kg/m2 [facility] 10-11-2023 15:51-0500 Body temperature 97.9 [degF] [facility] 10-11-2023 15:51-0500 Body weight 94.57 kg [facility] 10-11-2023 15:51-0500 Diastolic blood pressure 81 mm[Hg] [facility] 10-11-2023 15:51-0500 Heart rate 72 /min [facility] 10-11-2023 15:51-0500 Respiratory rate 16 /min [facility] 10-11-2023 15:51-0500 SaO2% (BldA) [Mass fraction] 100 % [facility] 10-11-2023 15:51-0500 Systolic blood pressure 127 mm[Hg] [facility] 06-28-2023 16:00-0500 Body height 172.72 cm Maeve Moreno Other [facility] Other 06-28-2023 16:00-0500 Body mass index (BMI) [Ratio] 31.35 kg/m2 Maeve Moreno Other [facility] Other 06-28-2023 16:00-0500 Body temperature 97.3 [degF] Maeve Moreno Other [facility] Other 06-28-2023 16:00-0500 Body weight 93.53 kg Maeve Moreno Other [facility] Other 06-28-2023 16:00-0500 Diastolic blood pressure 87 mm[Hg] Maeve Moreno Other [facility] Other 06-28-2023 16:00-0500 Respiratory rate 18 /min Maeve Moreno Other [facility] Other 06-28-2023 16:00-0500 SaO2% (BldA) [Mass fraction] 98 % Maeve Moreno Other [facility] Other 06-28-2023 16:00-0500 Systolic blood pressure 141 mm[Hg] Maeve Moreno Other [facility] Other 04-05-2023 16:00-0400 Body height 172.72 cm Maeve Moreno Other [facility] Other 04-05-2023 16:00-0400 Body mass index (BMI) [Ratio] 31.23 kg/m2 Maeve Moreno Other [facility] Other 04-05-2023 16:00-0400 Body temperature 96.4 [degF] Maeve Moreno Other [facility] Other 04-05-2023 16:00-0400 Body weight 93.17 kg Maeve Moreno Other [facility] Other 04-05-2023 16:00-0400 Diastolic blood pressure 85 mm[Hg] Maeve Moreno Other [facility] Other 04-05-2023 16:00-0400 Respiratory rate 18 /min Maeve Moreno Other [facility] Other 04-05-2023 16:00-0400 SaO2% (BldA) [Mass fraction] 99 % Maeve Moreno Other [facility] Other 04-05-2023 16:00-0400 Systolic blood pressure 134 mm[Hg] Maeve Moreno Other [facility] Other 12-21-2022 17:00-0400 Body height 172.72 cm Maeve Moreno Other [facility] Other 12-21-2022 17:00-0400 Body mass index (BMI) [Ratio] 31.14 kg/m2 Maeve Moreno Other [facility] Other 12-21-2022 17:00-0400 Body temperature 96.5 [degF] Maeve Moreno Other [facility] Other 05-04-2023 17:00-0400 Body weight 92.9 kg Maeve Moreno Other [facility] Other 12-21-2022 17:00-0400 Diastolic blood pressure 84 mm[Hg] Maeve Moreno Other [facility] Other 12-21-2022 17:00-0400 Respiratory rate 18 /min Maeve Moreno Other [facility] Other 12-21-2022 17:00-0400 SaO2% (BldA) [Mass fraction] 98 % Maeve Moreno Other [facility] Other 12-21-2022 17:00-0400 Systolic blood pressure 138 mm[Hg] Maeve Moreno Other [facility] Other 09-28-2022 17:00-0500 Body height 172.72 cm Maeve Moreno Other [facility] Other 09-28-2022 17:00-0500 Body mass index (BMI) [Ratio] 31.11 kg/m2 Maeve Moreno Other [facility] Other 09-28-2022 17:00-0500 Body temperature 98.2 [degF] Maeve Moreno Other [facility] Other 09-28-2022 17:00-0500 Body weight 92.81 kg Maeve Moreno Other [facility] Other 09-28-2022 17:00-0500 Diastolic blood pressure 94 mm[Hg] Maeve Moreno Other [facility] Other 09-28-2022 17:00-0500 Respiratory rate 18 /min Maeve Moreno Other [facility] Other 09-28-2022 17:00-0500 SaO2% (BldA) [Mass fraction] 98 % Maeve Moreno Other [facility] Other 09-28-2022 17:00-0500 Systolic blood pressure 144 mm[Hg] Maeve Moreno Other [facility] Other 07-06-2022 17:00-0500 Body height 172.72 cm Maeve Moreno Other [facility] Other 07-06-2022 17:00-0500 Body mass index (BMI) [Ratio] 30.32 kg/m2 Maeve Moreno Other [facility] Other 07-06-2022 17:00-0500 Body temperature 97.1 [degF] Maeve Moreno Other [facility] Other 07-06-2022 17:00-0500 Body weight 90.45 kg Maeve Moreno Other [facility] Other 07-06-2022 17:00-0500 Diastolic blood pressure 87 mm[Hg] Maeve Moreno Other [facility] Other 07-06-2022 17:00-0500 Respiratory rate 18 /min Maeve Moreno Other [facility] Other 07-06-2022 17:00-0500 SaO2% (BldA) [Mass fraction] 99 % Maeve Moreno Other [facility] Other 07-06-2022 17:00-0500 Systolic blood pressure 128 mm[Hg] Maeve Moreno Other [facility] Other 03-23-2022 16:40-0400 Body height 172.72 cm Maeve Moreno Other [facility] Other 03-23-2022 16:40-0400 Body mass index (BMI) [Ratio] 30.47 kg/m2 Maeve Moreno Other [facility] Other 03-23-2022 16:40-0400 Body temperature 96.9 [degF] Maeve Moreno Other [facility] Other 03-23-2022 16:40-0400 Body weight 90.9 kg Maeve Moreno Other [facility] Other 03-23-2022 16:40-0400 Diastolic blood pressure 80 mm[Hg] Maeve Moreno Other [facility] Other 03-23-2022 16:40-0400 Respiratory rate 18 /min Maeve Moreno Other [facility] Other 03-23-2022 16:40-0400 SaO2% (BldA) [Mass fraction] 99 % Maeve Moreno Other [facility] Other 03-23-2022 16:40-0400 Systolic blood pressure 116 mm[Hg] Maeve Moreno Other [facility] Other 08-09-2021 17:00-0500 Body height 172.72 cm Maeve Moreno Other [facility] Other 08-09-2021 17:00-0500 Body mass index (BMI) [Ratio] 30.53 kg/m2 Maeve Moreno Other [facility] Other 08-09-2021 17:00-0500 Body weight 91.08 kg Maeve Moreno Other [facility] Other 08-09-2021 17:00-0500 Diastolic blood pressure 80 mm[Hg] Maeve Moreno Other [facility] Other 08-09-2021 17:00-0500 Respiratory rate 18 /min Maeve Moreno Other [facility] Other 08-09-2021 17:00-0500 SaO2% (BldA) [Mass fraction] 99 % Maeve Moreno Other [facility] Other 08-09-2021 17:00-0500 Systolic blood pressure 142 mm[Hg] Maeve Moreno Other [facility] Other Encounters Encounter Date Encounter Type Care Provider Facility Start: 07-10-2024 End: 07-10-2024 ambulatory [facility] Work Phone: Start: 07-10-2024 End: 07-10-2024 Patient encounter procedure [facility] [place] Work Phone: Start: 03-27-2024 End: 03-27-2024 ambulatory [facility] Work Phone: Start: 03-27-2024 End: 03-27-2024 Patient encounter procedure [facility] Work Phone: Start: 03-20-2024 Non-patient / Non-visit [facility] Work Phone: Start: 01-10-2024 End: 01-10-2024 ambulatory [facility] Work Phone: Start: 01-10-2024 End: 01-10-2024 Patient encounter procedure [facility] Work Phone: Start: 10-11-2023 End: 10-11-2023 ambulatory [facility] Work Phone: Start: 10-11-2023 End: 10-11-2023 Patient encounter procedure [facility] Work Phone: Start: 06-28-2023 End: 06-28-2023 ambulatory Maeve Moreno Other [facility] Other Start: 06-28-2023 Office outpatient vi sit 15 minutes Essparam Moreno [facility] Start: 06-26-2023 End: 06-26-2023 ambulatory Maeve Moreno Other [facility] Other Start: 06-26-2023 Telephone encounter Maeve Moreno [facility] Start: 05-07-2023 End: 05-07-2023 ambulatory Maeve Moreno Other [facility] Other Start: 05-07-2023 Telephone encounter Maeve Moreno [facility] Start: 04-05-2023 End: 04-05-2023 ambulatory Maeve Moreno Other [facility] Other Start: 04-05-2023 Office outpatient vi sit 25 minutes Essam Elashi [facility] Start: 03-27-2023 End: 03-27-2023 ambulatory Essam Boraashi Other [facility] Other Start: 03-27-2023 Telephone encounter Essam Boraashi [facility] Start: 03-12-2023 End: 03-12-2023 ambulatory Essam Elashi Other [facility] Other Start: 03-12-2023 Telephone encounter Sekouparam Tiffanie [facility] Start: 12-21-2022 End: 12-21-2022 ambulatory Maeve Moreno Other [facility] Other Start: 12-21-2022 Office outpatient vi sit 25 minutes Sekouparam Sahnidank [facility] Start: 12-18-2022 End: 12-18-2022 ambulatory Maeve Tiffanie Other [facility] Other Start: 12-18-2022 Telephone encounter Sekouparam Tiffanie [facility] Start: 12-13-2022 End: 12-14-[address] MAEVE MORENO Facility:[facility] Start: 11-14-2022 End: 11-15-[address] MAREN JAMES . Facility:[facility] Start: 11-13-2022 Encounter for genera l adult medical examination without abnormal findings DR MAREN JAMES . [facility] Start: 11-10-2022 End: 11-11-[address] MAREN JAMES . Facility:[facility] Start: 11-10-2022 End: 11-11-2022 Encounter for general adult medical examination without abnormal findings DR MAREN JAMES . Facility:[facility] Start: 09-28-2022 End: 09-28-2022 ambulatory Maeve Moreno Other [facility] Other Start: 09-28-2022 Office outpatient vi sit 25 minutes Maeve Moreno [facility] Start: 09-26-2022 End: 09-27-[address] MAEVE MORENO Facility:[facility] Start: 07-06-2022 End: 07-06-2022 ambulatory Maeve Moreno Other [facility] Other Start: 07-06-2022 Office outpatient vi sit 25 minutes Maeve Moreno [facility] Start: 07-04-2022 End: 07-04-2022 ambulatory Maeve Moreno Other [facility] Other Start: 07-04-2022 Telephone encounter Maeve Moreno [facility] Start: 06-29-2022 End: 06-30-[address] MAEVE MORENO Facility:[facility] Start: 05-25-2022 End: 05-26-[address] MAEVE MORENO Facility:[facility] Start: 04-25-2022 End: 04-26-[address] MAEVE MORENO Facility:[facility] Start: 04-17-2022 End: 04-17-2022 ambulatory Maeve Moreno Other [facility] Other Start: 04-17-2022 Telephone encounter Maeve Moreno [facility] Start: 03-23-2022 End: 03-23-2022 ambulatory Maeve Moreno Other [facility] Other Start: 03-23-2022 Office outpatient vi sit 25 minutes Maeve Moreno [facility] Start: 03-22-2022 End: 03-23-[address] MAEVE MORENO Facility:[facility] Start: 02-06-2022 End: 02-07-[address] MAEVE MORENO Facility:[facility] Start: 01-13-2022 End: 01-14-[address] MAEVE MORENO [employer] Other Start: 01-13-2022 Telephone encounter Maeve Moreno [facility] Start: 10-04-2021 End: 10-04-2021 ambulatory Maeve Moreno Other [facility] Other Start: 10-04-2021 Telephone encounter Maeve Moreno [facility] Start: 09-14-2021 End: 09-14-2021 ambulatory Maeve Moreno Other [facility] Other Start: 09-14-2021 Telephone encounter Maeve Moreno [facility] Start: 08-09-2021 End: 08-09-2021 ambulatory Maeve Moreno Other [facility] Other Start: 08-09-2021 Office outpatient vi sit 25 minutes Maeve Moreno [facility] Start: 07-26-2021 End: 07-26-2021 ambulatory Maeve Moreno Other [facility] Other Start: 07-26-2021 Telephone encounter [facility] Moreno [facility] Start: 09-28-2020 End: 09-28-2020 ambulatory Maeve Moreno Other [facility] Other Start: 09-28-2020 Telephone encounter Maeve Moreno [facility] Plan of Treatment Date Care Activity Detail Author Comprehensive metabo lic 1999 panel - Serum or Plasma [facility] enter Comprehensive metabo lic 1999 panel - Serum or Plasma [facility] enter Comprehensive metabo lic 1999 panel - Serum or Plasma [facility] enter Comprehensive metabo lic 1999 panel - Serum or Plasma [facility] enter [facility] Payers Date Payer Category Payer Unknown [id number] 1980 Unknown [id number] 1980 Unknown [id number] 1980 Unknown [id number] 1980 Unknown [id number] 1980 Unknown [id number] 1980 Unknown [id number] 1980 Unknown [id number] 1980 Unknown [id number] 1980 Unknown [id number] 1958 Private Health Insurance [id number] Private Health Insurance [employer] [id number] Self-pay Self Pay [id number] Unknown [facility] [id number] Social History Date Type Detail Facility Unknown if ever smoked [facility] Other Sex Assigned At Sex Assigned At Bir th [facility] Other Start: 10-11-2023 End: 10-11-2023 Tobacco smoking status NHIS Never smoked tobacco (finding) [facility] Start: 1980 Sex Assigned At Female F [facility] Start: 07-10-2024 Sex Female (finding) [facility] Clinical Notes 09-28-2020 to 06-28-2023 Note [...] She was informed that they may need SOLAR DEVELOPMENT ENGINEER in near future. Will refer to transplant [...] more than 140s. She has no proteinuria. [facility] Other 09-18-2023 Evaluation note* Encounter Date Diagnosis Assessment Notes Treatment Notes Treatment Clinical Notes Apr, Polycystic dysplastic kidney (ICD-10 - Q61.3) [facility] Other 08-17-2023 Evaluation note* Encounter Date Diagnosis [...] She was informed that they may need SOLAR DEVELOPMENT ENGINEER in near future. Will refer to transplant [...] more than 40s. She has no proteinuria. [facility] Other 05-04-2023 Evaluation note* Encounter Date Diagnosis [...] She was informed that they may need SOLAR DEVELOPMENT ENGINEER in near future. Will refer to transplant [...] more than 140s. She has no proteinuria. [facility] Other 02-09-2023 Evaluation note* Encounter Date Diagnosis [...] She was informed that they may need SOLAR DEVELOPMENT ENGINEER in near future. Will refer to transplant [...] to check blood pressure at my office. [facility] Other 11-17-2022 Evaluation note* Encounter Date Diagnosis [...] She was informed that they may need SOLAR DEVELOPMENT ENGINEER in near future. Will refer to transplant [...] She has no bleeding events or hematuria. [facility] Other 08-04-2022 Evaluation note* Encounter Date Diagnosis [...] of renal function is expected however hopefully Jsidraarkristin is supposed to slow the decline of renal function. Will continue monitor LFTs monthly for total 18 months till 2021 then every 3 months per manufacture recommendation. She has standing order for labs every month. Considering the rapid decline in renal function, She was informed that they may need [employer] in near future. Will refer to transplant [...] She has no bleeding events or hematuria. [facility]Collect Other 05-27-2022 Evaluation note* Encounter Date Diagnosis Assessment Notes Treatment Notes Treatment Clinical Notes December, Polycystic dysplastic kidney (ICD-10 - Q61.3) December, CKD (chronic kidney disease) stage 2, GFR 60-89 ml/min (ICD-10 - N18.2) December, Factor V Leiden (ICD-10 - D68.51) eCollect Other 02-09-2021 Evaluation note* Encounter Date Diagnosis Assessment Notes Treatment Notes Treatment Clinical Notes Sep, Polycystic dysplastic kidney (ICD-10 - Q61.3) [facility] Other Evaluation noteNort [place] Other Evaluation noteNo InformationNortPivotal Systems Other Evaluation note* Diagnosis Onset Date Resolution Status 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 CKD stage G4/A3, GFR 15-29 a nd albumin creatinine ratio >300 mg/g acute Factor V Leiden acute [id number] acute [facility] Work Phone: Evaluation note* Diagnosis Onset Date Resolution Status 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 CKD stage G4/A3, GFR 15-29 a nd albumin creatinine ratio >300 mg/g acute Factor V Leiden acute [id number] acute Polycystic kidney disease no neactive 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 CKD (chronic kidney disease) stage 4, GFR 15-29 ml/min acute CKD stage G4/A3, GFR 15-29 a nd albumin creatinine ratio >300 mg/g acute Factor V Leiden acute [id number] acute Polycystic dysplastic kidney acute [facility] Work Phone: Evaluation note* Diagnosis Onset Date Resolution Status Admit Date 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 Novem rika 2023 3:50pm CKD (chronic kidney disease) stage 4, GFR 15-29 ml/min acute Novemb er 2023 3:50pm Factor V Leiden acute July 10, 2024 3:50pm Hypertensive chronic kidney disease with stage 1 through stage 4 chronic ki acute June 3:50pm [facility] Work Phone: History general Narrative - ReportedNort [place] Other History general Narrative - Reported* Type Description Date Medical History PCOS Medical History previous blood clot in leg X 2 Medical History CAPILLARY HEMANGIOMA Medical History FACTOR V LEIDEN MUTATION Surgical History WISDOM TEETH X4 Hospitalization History CHILD X 2 Hospitalization History BLOOD CLOT eCollect Other History general Narrative - Reported* Type Description Date Medical History PCOS Medical History previous blood clot in leg X 2 Medical History CAPILLARY HEMANGIOMA Medical History FACTOR V LEIDEN MUTATION Surgical History WISDOM TEETH X4 Surgical History EVLT ON RIGHT LEG Hospitalization History CHILD X 2 Hospitalization History BLOOD CLOT eCollect Other Summary Purpose Family History Relationship Condition [...] creatinine ratio >300 mg/g Factor V Leiden [id number] Chief Complaint RENAL 3 MONTH F/U Reason for Visit ADPKD (autosomal dom inant polycystic kidney disease) CKD stage G4/A3, GFR 15-29 and albumin creatinine ratio >300 mg/g Factor V Leiden [id number] Chief Complaint RENAL 3 MONTH F/U RENAL 3 MONTH F/U Reason for Visit ADPKD (autosomal dom inant polycystic kidney disease) CKD stage G4/A3, GFR 15-29 and albumin creatinine ratio >300 mg/g Factor V Leiden [id number] Polycystic kidney disease ADPKD (autosomal dominant polycystic kidney disease) CKD (chronic kidney disease) stage 4, GFR 15-29 ml/min CKD stage G4/A3, GFR 15-29 and albumin creatinine ratio >300 mg/g Factor V Leiden [id number] Polycystic dysplastic kidney Chief Complaint Admit Date RENAL 3 MONTH F/U July 10, 2024 3:50pm Reason for Visit Admit Date ADPKD (autosomal dominant polycystic 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) July 10, 2024 3:50pm CKD (chronic kidney disease) stage 4, GF R 15-29 ml/min July 10, 2024 3:50pm Factor V Leiden July 10, 2024 3:50pm Hypertensive chronic kidney disease with stage 1 through stage 4 chronic ki July 10, 2024 3:50pm Additional Source Comments INFORMATION SOURCE (unrecogn ized section and content) DATE CREATED AUTHOR 09/06/2019 [facility] DATE CREATED AUTHOR AUTHOR'S ORGANIZ ATION [...] January 10, 2024 End: January 10, 2024 Team Status: Active Member Role Status Sheridan James MD Primary Care Provider Active Start: March 20, 2024 Maeve Moreno MD Attending Provider Active Star t: March 20, 2024 Team Status: Inactive Member Role Status Sheridan James MD Primary Care Provider Active Start: March 27, 2024 End: March 27, 2024 Maeve Moreno MD Attending Provider Active Star t: March 27, 2024 End: March 27, 2024 Team Status: Inactive Member Role Status Sheridan James MD Primary Care Provider Active Start: July 10, 2024 End: July 10, 2024 Maeve Moreno MD Attending Provider Active Star t: July 10, 2024 End: July 10, 2024 Goals (unrecognized section and content) [...] BE BASED ON THE PRIMARY CLINICAL RECORDS. [facility] [email or web address] [facility]. provides no warranty or guarantee of the accuracy or completeness of information in this document.
[2024-09-24 16:12] LABS: Hematocrit 41.8 % (36.0-48.0); Hemoglobin 13.4 g/dL (12.0-16.0); Mean Corpuscular HGB Conc 32.1 g/dL (29.9-35.2); Mean Corpuscular Hemoglobin 28.9 pg (26.7-34.0); Mean Corpuscular Volume 90.1 fL (81.0-99.0); Mean Platelet Volume 12.1 fL (9.5-13.5); Platelet Count 152 10^3/uL (150-450); Red Blood Count 4.64 10^6/uL (4.20-5.40); Red Cell Distribution Width 13.2 % (11.0-15.0)
[2024-09-24 16:30] LABS: Alanine Aminotransferase 14 U/L (14-59); Albumin Globulin Ratio 1.1; Alkaline Phosphatase 36 U/L (46-116); Aspartate Amino Transferase 15 U/L (15-37); BUN Creatinine Ratio 9.9; Bilirubin Total 0.3 mg/dL (0.2-1.0); Calcium 8.8 mg/dL (8.5-10.1); Carbon Dioxide 25.7 mmol/L (21.0-32.0); Chloride 104 mmol/L (98-107); Estimated GFR (African America 21 (>=60 mL/min/1.73m^2); Estimated GFR (Non-African Ame 17 (>=60 mL/min/1.73m^2); Globulin 3.7 g/dL; Glucose 95 mg/dL (74-106); Phosphorus 3.8 mg/dL (2.6-4.7); Potassium 3.7 mmol/L (3.5-5.1); Sodium 141 mmol/L (136-145); Total Protein 7.7 g/dL (6.4-8.2)
[2024-09-25 11:08] LABS: PTH, Intact 137 pg/mL (15-65)
== END 2024-09-24 15:55 | disposition home or self-care (01) ==
PROVIDERS: PCP Family Medicine; Visit Provider Internal Medicine Nephrology
DX: N25.81 Secondary hyperparathyroidism of renal origin (principal); N18.4 Chronic kidney disease, stage 4 (severe); I12.9 Hypertensive chronic kidney disease with stage 1 through stage 4 chronic kidney disease, or unspecified chronic kidney disease; Q61.2 Polycystic kidney, adult type; N18.9 Chronic kidney disease, unspecified; D63.1 Anemia in chronic kidney disease
CPT/HCPCS: 36415; 80053; 83970; 84100; 85027

== ENCOUNTER 2024-10-13 16:00 | Outpatient (OUT) | payer OTHER, SELFPAY ==
[2024-10-13 16:20] LABS: Anion Gap 12.5; BUN Creatinine Ratio 11.9; Calcium 9.1 mg/dL (8.5-10.1); Carbon Dioxide 26.5 mmol/L (21.0-32.0); Chloride 106 mmol/L (98-107); Estimated GFR (African America 25 (>=60 mL/min/1.73m^2); Estimated GFR (Non-African Ame 21 (>=60 mL/min/1.73m^2); Glucose 127 mg/dL (74-106); Sodium 141 mmol/L (136-145)
--- OUTSIDE RECORDS SUMMARY | 2024-10-13 16:26 | XMS_ITS | CCD ---
Author Organization [facility] Care Team Providers Care Prison Keeper Name Role Phone Maeve Moreno Unavailable DR [...] Sulfonamides (Antibiotic) Propensity to adverse reactions rash Diversion Other Medications Current Medications Medication Drug Class(es) [...] pantoprazole 40 mg delayed release oral tablet (9 sources) Proton Pump Inhibitor Start: 10-11-2023 End: [...] sources) Vasopressin V2 Receptor Antagonist Start: 07-10-2024 End: 09-29-2024 Tolvaptan (Polycys Kidney Dis) (Jynarque) 45 mg (AM)/ 15 mg (PM) tablets, sequential Active 0 PO per package directions 56 September 29, 2024 3:53pm PO PER PKG DIR Start: 06-04-2024 End: [...] sequential Discontinued 0 PO per package directions 56 December 23, 2023 10:04pm April 06, 2024 [...] She was informed that they may need [employer] in near future. Will refer to transplant evaluation once GFR < 20 ml/min. She does not have a donor. 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 Comment on above: Performed By: #### L IPID, CMP, TSH, T7 #### [facility] [address] [address] [address] Jessica Mosqueda HEMOGRAM AND PLATELon 2022 Hematocrit (Bld) [Volume fraction] 41.0 % Normal 36.0-48.[address] [facility] Comment on above: Performed By: #### H H #### [facility] [address] [place] [address] Dr. Jessica Mosqueda Hemoglobin (Bld) [Mass/Vol] 13.0 g/dL Normal 12.0-16.0 [facility] Comment on above: Performed By: #### H H #### [facility] [address] [place] [address] Dr. Jessica Mosqueda MCH (RBC) [Entitic mass] 28.6 pg Normal 26.7-34.[address] [facility] Comment on above: Performed By: #### H H #### [facility] [address] [place] [address] Dr. Jessica Mosqueda MCHC (RBC) [Mass/Vol] 31.7 g/dL Normal 29.9-35.2 [facility] Comment on above: Performed By: #### H H #### [facility] [address] [place] [address] Dr. Jessica Mosqueda MCV (RBC) [Entitic vol] 90.3 fL Normal 81.0-99.0 [facility] Comment on above: Performed By: #### H H #### [facility] [address] [place] [address] Dr. Jessica Mosqueda PLT 133 103/ul Critically low 150-450 [facility] Comment on above: Performed By: #### H H #### [facility] [address] [address] [address] Jessica Mosqueda RBC 4.54 106/ul Normal 4.20-5.[address] [facility] Comment on above: Performed By: #### H H #### [facility] [address] [place] [address] Dr. Jessica Mosqueda WBC 9.0 103/ul Normal 4.0-11.[address] [facility] Comment on above: Performed By: #### H H #### [facility] [address] [place] [address] Dr. Jessica Mosqueda PHOSPHORUSon 12-13-2022 Phosphate [Mass/Vol] 4.3 mg/dL Normal 2.6-4.[address] [facility] Comment on above: Performed By: #### P THINT #### [facility] [address] [place] [address] Dr. Jessica Mosqueda PROF 14(COMP METB)on 023 Albumin [Mass/Vol] 3.8 g/dL Normal 3.4-5.[address] [facility] Comment on above: Performed By: #### P THINT #### [facility] [address] [place] [address] Dr. Jessica Mosqueda Albumin/Globulin [Mass ratio] 1.1 {ratio} Normal [facility] Comment on above: Performed By: #### P THINT #### [facility] [address] [place] [address] Dr. Jessica Mosqueda ALP [Catalytic activity/Vol] 36 U/L Critically low 46-116 [facility] Comment on above: Performed By: #### P THINT #### [facility] [address] [place] [address] Dr. Jessica Mosqueda ALT [Catalytic activity/Vol] 14 U/L Normal 14-[address] [facility] Comment on above: Performed By: #### P THINT #### [facility] [address] [place] [address] Dr. Jessica Mosqueda Anion gap [Moles/Vol] 11.9 mmol/L Normal [facility] Comment on above: Performed By: #### P THINT #### [facility] [address] [address] [address] Jessica Mosqueda AST [Catalytic activity/Vol] 13 U/L Critically low 15-[address] [facility] Comment on above: Performed By: #### P THINT #### [facility] [address] [address] [address] Jessica Mosqueda Bilirubin [Mass/Vol] 0.3 mg/dL Normal 0.2-1.[address] [facility] Comment on above: Performed By: #### P THINT #### [facility] [address] [address] [address] Jessica Mosqueda Calcium [Mass/Vol] 9.0 mg/dL Normal 8.5-10.[address] [facility] Comment on above: Performed By: #### P THINT #### [facility] [address] [address] [address] Jessica Mosqueda Chloride [Moles/Vol] 107 mmol/L Normal 98-[address] [facility] Comment on above: Performed By: #### P THINT #### [facility] [address] [address] [address] Jessica Mosqueda CO2 [Moles/Vol] 28.1 mmol/L Normal 21.0-32.0 [facility] Comment on above: Performed By: #### P THINT #### [facility] [address] [address] [address] Jessica Mosqueda Creatinine [Mass/Vol] 2.10 mg/dL Critically high 0.55-1.[address] [facility] Comment on above: Performed By: #### P THINT #### [facility] [address] [address] [address] Jessica Mosqueda EGFR-AF SAUDI ARABIAN 31 mL/min/1.73m2 Critically low >=60 [facility] Comment on above: Performed By: #### P THINT #### [facility] [address] [address] [address] Jessica Mosqueda EGFR-NON AF SAUDI ARABIAN 26 mL/min/1.73m2 Critically low >=60 [facility] Comment on above: Performed By: #### P THINT #### [facility] [address] [address] [address] Jessica Mosqueda Globulin (S) [Mass/Vol] 3.6 g/dL Normal [facility] Comment on above: Performed By: #### P THINT #### [facility] [address] [address] [address] Jessica Mosqueda Glucose [Mass/Vol] 82 mg/dL Normal 74-106 [facility] Comment on above: Performed By: #### P THINT #### [facility] [address] [address] [address] Jessica Mosqueda Potassium [Moles/Vol] 4.0 mmol/L Normal 3.5-5.[address] [facility] Comment on above: Performed By: #### P THINT #### [facility] [address] [address] [address] Jessica Mosqueda Protein [Mass/Vol] 7.4 g/dL Normal 6.4-8.2 [facility] Comment on above: Performed By: #### P THINT #### [facility] [address] [address] [address] Jessica Mosqueda Sodium [Moles/Vol] 143 mmol/L Normal 136-145 [facility] Comment on above: Performed By: #### P THINT #### [facility] [address] [address] [address] Jessica Mosqueda Urea nitrogen [Mass/Vol] 23.0 mg/dL Critically high 7.0-18.0 [facility] Comment on above: Performed By: #### P THINT #### [facility] [address] [address] [address] Jessica Mosqueda Urea nitrogen/Creatinine [Mass ratio] 11.0 mg/mg Normal [facility] Comment on above: Performed By: #### P THINT #### [facility] [address] [address] [address] Jessica Mosqueda MG MAMM SCREEN 3D MATILDA CADon 11-14-2022 MG MAMM SCREEN 3D MATILDA CAD Patient: ISABEL RIVERA Exam Date: 11/14/2022 : 1980 Gender:F Ordering : DR MAREN JAMES . Admission #: [id number] Family : Order #: [id number] CLICK HERE TO VIEW EXAM RADIOLOGY REPORT [...] at age 51. LOCATION: [facility] BREAST COMPOSITION: Extremely dense, which lowers [...] 11/15/2022 at 07:51 Normal [facility] INSULINon 11-11-2022 Insulin 7.2 uIU/mL Normal 2.6-24.[address] [facility] Comment on above: Performed By: #### I NSULIN #### [facility] [address] [address] [address] Jessica Mosqueda CBC AUTO DIFFon 11-10-2022 BASO # 0.0 103/ul Normal 0.0-0.[address] [facility] Comment on above: Performed By: #### L IPID, CMP, TSH, T7 #### [facility] [address] [address] [address] Jessica Mosqueda Basophils/100 WBC (Bld) 0.5 % Normal 0.2-2.[address] [facility] Comment on above: Performed By: #### L IPID, CMP, TSH, T7 #### [facility] [address] [address] [address] Jessica Mosqueda EO # 0.3 103/ul Normal 0.0-0.[address] [facility] Comment on above: Performed By: #### L IPID, CMP, TSH, T7 #### [facility] [address] [address] [address] Jessica Mosqueda Eosinophils/100 WBC (Bld) 3.6 % Normal 0.9-7.[address] [facility] Comment on above: Performed By: #### L IPID, CMP, TSH, T7 #### [facility] [address] [place] [address] Dr. Jessica Mosqueda Erythrocyte distribution width (RBC) [Ratio] 13.2 % Normal 11.0-15.0 [facility] Comment on above: Performed By: #### L IPID, CMP, TSH, T7 #### [facility] [address] [place] [address] Dr. Jessica Mosqueda Hematocrit (Bld) [Volume fraction] 41.9 % Normal 36.0-48.[address] [facility] Comment on above: Performed By: #### L IPID, CMP, TSH, T7 #### [facility] [address] [place] [address] Dr. Jessica Mosqueda Hemoglobin (Bld) [Mass/Vol] 13.3 g/dL Normal 12.0-16.0 [facility] Comment on above: Performed By: #### L IPID, CMP, TSH, T7 #### [facility] [address] [place] [address] Dr. Jessica Mosqueda IG # 0.02 10e3/ul Normal 0.00-0.03 [facility] Comment on above: Performed By: #### L IPID, CMP, TSH, T7 #### [facility] [address] [place] [address] Dr. Jessica Mosqueda IG % 0.3 % Normal 0.0-0.5 [facility] Comment on above: Performed By: #### L IPID, CMP, TSH, T7 #### [facility] [address] [place] [address] Dr. Jessica Mosqueda LYMPH # 2.2 103/ul Normal 1.2-3.8 [facility] Comment on above: Performed By: #### L IPID, CMP, TSH, T7 #### [facility] [address] [place] [address] Dr. Jessica Mosqueda Lymphocytes/100 WBC (Bld) 29.6 % Normal 20.5-60.[address] [facility] Comment on above: Performed By: #### L IPID, CMP, TSH, T7 #### [facility] [address] [place] [address] Dr. Jessica Mosqueda MANUAL DIFF REQ NO Normal [facility] Comment on above: Performed By: #### L IPID, CMP, TSH, T7 #### [facility] [address] [place] [address] Dr. Jessica Mosqueda MCH (RBC) [Entitic mass] 28.9 pg Normal 26.7-34.[address] [facility] Comment on above: Performed By: #### L IPID, CMP, TSH, T7 #### [facility] [address] [place] [address] Dr. Jessica Mosqueda MCHC (RBC) [Mass/Vol] 31.7 g/dL Normal 29.9-35.2 [facility] Comment on above: Performed By: #### L IPID, CMP, TSH, T7 #### [facility] [address] [place] [address] Dr. Jessica Mosqueda MCV (RBC) [Entitic vol] 91.1 fL Normal 81.0-99.[address] [facility] Comment on above: Performed By: #### L IPID, CMP, TSH, T7 #### [facility] [address] [place] [address] Dr. Jessica Mosqueda MONO # 0.5 103/ul Normal 0.3-0.8 [facility] Comment on above: Performed By: #### L IPID, CMP, TSH, T7 #### [facility] [address] [place] [address] Dr. Jessica Mosqueda Monocytes/100 WBC (Bld) 6.1 % Normal 1.7-12.[address] [facility] Comment on above: Performed By: #### L IPID, CMP, TSH, T7 #### [facility] [address] [place] [address] Dr. Jessica Mosqueda NEUT # 4.4 103/ul Normal 1.4-6.5 [facility] Comment on above: Performed By: #### L IPID, CMP, TSH, T7 #### [facility] [address] [address] [address] Jessica Mosqueda Neutrophils/100 WBC (Bld) 59.9 % Normal 43.0-75.0 [facility] Comment on above: Performed By: #### L IPID, CMP, TSH, T7 #### [facility] [address] [address] [address] Jessica Mosqueda Platelet mean volume (Bld) [Entitic vol] 12.5 fL Normal 9.5-13.[address] [facility] Comment on above: Performed By: #### L IPID, CMP, TSH, T7 #### [facility] [address] [place] [address] Dr. Jessica Mosqueda PLT 157 103/ul Normal 150-450 [facility] Comment on above: Performed By: #### L IPID, CMP, TSH, T7 #### [facility] [address] [place] [address] Dr. Jessica Mosqueda RBC 4.60 106/ul Normal 4.20-5.40 [facility] Comment on above: Performed By: #### L IPID, CMP, TSH, T7 #### [facility] [address] [address] [address] Jessica Mosqueda WBC 7.3 103/ul Normal 4.0-11.0 [facility] Comment on above: Performed By: #### L IPID, CMP, TSH, T7 #### [facility] [address] [place] [address] Dr. Jessica Mosqueda FREE THYROXINE INDEX T7on FTI 2.51 Normal 1.30-4.50 [facility] Comment on above: Performed By: #### L IPID, CMP, TSH, T7 #### [facility] [address] [place] [address] Dr. Jessica Mosqueda T3U 38.0 % Normal 30.0-39.[address] [facility] Comment on above: Performed By: #### L IPID, CMP, TSH, T7 #### [facility] [address] [address] [address] Jessica Mosqueda T4 [Mass/Vol] 6.60 ug/dL Normal 4.80-13.90 [facility] Comment on above: Performed By: #### L IPID, CMP, TSH, T7 #### [facility] [address] [address] [address] Jessica Mosqueda GLYCOHEMOGLOBIN A1Con 2022 ADA RECOMMENDATION SEE BELOW Normal [facility] Comment on above: Result Comment: ADA RECOMMENDED LIMIT 4.0 - 6.0 ADA THERAPEUTIC TARGET < 7.0 ACTION SUGGESTED > 7.0 Performed By: #### P THINT #### [facility] [address] [address] [address] Jessica Mosqueda Glucose [Mass/Vol] 111 mg/dL Normal [facility] Comment on above: Performed By: #### P THINT #### [facility] [address] [address] [address] Jessica Mosqueda HbA1c (Bld) [Mass fraction] 5.5 % Normal 4.5-6.[address] [facility] Comment on above: Performed By: #### P THINT #### [facility] [address] [address] [address] Jessica Mosqueda IRONon 11-10-2022 Iron [Mass/Vol] 58.0 ug/dL Normal 50.0-170.0 [facility] Comment on above: Performed By: #### P THINT #### [facility] [address] [address] [address] Jessica Mosqueda LIPID PROFILEon 11-10-2022 CHOL-HDL RATIO NORM SEE BELOW Normal [facility] Comment on above: Result Comment: 3.3 - 4.4 LOW RISK 4.4 - 7.1 AVERAGE RISK 7.1 - 11.0 MODERATE RISK >11.0 HIGH RISK Performed By: #### L IPID, CMP, TSH, T7 #### [facility] [address] [address] [address] Jessica Mosqueda Cholesterol [Mass/Vol] 205 mg/dL Critically high <=200 [facility] Comment on above: Performed By: #### L IPID, CMP, TSH, T7 #### [facility] [address] [address] [address] Jessica Mosqueda Cholesterol in HDL [Mass/Vol] 60 mg/dL Normal 40-[address] [facility] Comment on above: Performed By: #### L IPID, CMP, TSH, T7 #### [facility] [address] [address] [address] Jessica Mosqueda Cholesterol in LDL [Mass/Vol] 127.4 mg/dL Normal [facility] Comment on above: Performed By: #### L IPID, CMP, TSH, T7 #### [facility] [address] [place] [address] Dr. Jessica Mosqueda Cholesterol.total/Cho lesterol in HDL [Mass ratio] 3.4 {ratio} Normal [facility] Comment on above: Performed By: #### L IPID, CMP, TSH, T7 #### [facility] [address] [address] [address] Jessica Mosqueda HDL NORMAL > or = 60 mg/dl - LOW CARDIOVASCULAR RISK <40 mg/dl - HIGH CARDIOVASCULAR RISK Normal [facility] Comment on above: Performed By: #### L IPID, CMP, TSH, T7 #### [facility] [address] [address] [address] Jessica Mosqueda LDL CALC NORMAL SEE BELOW Normal [facility] Comment on above: Result Comment: <100 mg/dl OPTIMAL 100 - 129 mg/dl NEAR OR ABOVE OPTIMAL 130 - 159 mg/dl BORDERLINE HIGH 160 - 189 mg/dl HIGH >190 mg/dl VERY HIGH Performed By: #### L IPID, CMP, TSH, T7 #### [facility] [address] [address] [address] Jessica Mosqueda Triglyceride [Mass/Vol] 88 mg/dL Normal <=150 [facility] Comment on above: Performed By: #### L IPID, CMP, TSH, T7 #### [facility] [address] [address] [address] Jessica Mosqueda VLDL CALC 17.6 mg/dL Normal [facility] Comment on above: Performed By: #### L IPID, CMP, TSH, T7 #### [facility] [address] [address] [address] Jessica Mosqueda PROF 14(COMP METB)on 023 Albumin [Mass/Vol] 3.8 g/dL Normal 3.4-5.[address] [facility] Comment on above: Performed By: #### L IPID, CMP, TSH, T7 #### [facility] [address] [address] [address] Jessica Mosqueda Albumin/Globulin [Mass ratio] 1.1 {ratio} Normal [facility] Comment on above: Performed By: #### L IPID, CMP, TSH, T7 #### [facility] [address] [place] [address] Dr. Jessica Mosqueda ALP [Catalytic activity/Vol] 37 U/L Critically low 46-[address] [facility] Comment on above: Performed By: #### L IPID, CMP, TSH, T7 #### [facility] [address] [place] [address] Dr. Jessica Mosqueda ALT [Catalytic activity/Vol] 16 U/L Normal 14-[address] [facility] Comment on above: Performed By: #### L IPID, CMP, TSH, T7 #### [facility] [address] [address] [address] Jessica Mosqueda Anion gap [Moles/Vol] 13.7 mmol/L Normal [facility] Comment on above: Performed By: #### L IPID, CMP, TSH, T7 #### [facility] [address] [place] [address] Dr. Jessica Mosqueda AST [Catalytic activity/Vol] 14 U/L Critically low 15-[address] [facility] Comment on above: Performed By: #### L IPID, CMP, TSH, T7 #### [facility] [address] [place] [address] Dr. Jessica Mosqueda Bilirubin [Mass/Vol] 0.4 mg/dL Normal 0.2-1.[address] [facility] Comment on above: Performed By: #### L IPID, CMP, TSH, T7 #### [facility] [address] [address] [address] Jessica Mosqueda Calcium [Mass/Vol] 9.6 mg/dL Normal 8.5-10.[address] [facility] Comment on above: Performed By: #### L IPID, CMP, TSH, T7 #### [facility] [address] [address] [address] Jessica Mosqueda Chloride [Moles/Vol] 107 mmol/L Normal 98-[address] [facility] Comment on above: Performed By: #### L IPID, CMP, TSH, T7 #### [facility] [address] [place] [address] Dr. Jessica Mosqueda CO2 [Moles/Vol] 27.5 mmol/L Normal 21.0-32.0 [facility] Comment on above: Performed By: #### L IPID, CMP, TSH, T7 #### [facility] [address] [address] [address] Jessica Mosqueda Creatinine [Mass/Vol] 1.74 mg/dL Critically high 0.55-1.[address] [facility] Comment on above: Performed By: #### L IPID, CMP, TSH, T7 #### [facility] [address] [place] [address] Dr. Jessica Mosqueda EGFR-AF SAUDI ARABIAN 39 mL/min/1.73m2 Critically low >=[address] [facility] Comment on above: Performed By: #### L IPID, CMP, TSH, T7 #### [facility] [address] [place] [address] Dr. Jessica Mosqueda EGFR-NON AF SAUDI ARABIAN 32 mL/min/1.73m2 Critically low >=60 [facility] Comment on above: Performed By: #### L IPID, CMP, TSH, T7 #### [facility] [address] [place] [address] Dr. Jessica Mosqueda Globulin (S) [Mass/Vol] 3.4 g/dL Normal [facility] Comment on above: Performed By: #### L IPID, CMP, TSH, T7 #### [facility] [address] [address] [address] Jessica Mosqueda Glucose [Mass/Vol] 95 mg/dL Normal 74-106 [facility] Comment on above: Performed By: #### L IPID, CMP, TSH, T7 #### [facility] [address] [place] [address] Dr. Jessica Mosqueda Potassium [Moles/Vol] 4.2 mmol/L Normal 3.5-5.[address] [facility] Comment on above: Performed By: #### L IPID, CMP, TSH, T7 #### [facility] [address] [place] [address] Dr. Jessica Mosqueda Protein [Mass/Vol] 7.2 g/dL Normal 6.4-8.2 [facility] Comment on above: Performed By: #### L IPID, CMP, TSH, T7 #### [facility] [address] [place] [address] Dr. Jessica Mosqueda Sodium [Moles/Vol] 144 mmol/L Normal 136-145 [facility] Comment on above: Performed By: #### L IPID, CMP, TSH, T7 #### [facility] [address] [place] [address] Dr. Jessica Mosqueda Urea nitrogen [Mass/Vol] 25.0 mg/dL Critically high 7.0-18.[address] [facility] Comment on above: Performed By: #### L IPID, CMP, TSH, T7 #### [facility] [address] [place] [address] Dr. Jessica Mosqueda Urea nitrogen/Creatinine [Mass ratio] 14.4 mg/mg Normal [facility] Comment on above: Performed By: #### L IPID, CMP, TSH, T7 #### [facility] [address] [place] [address] Dr. Jessica Mosqueda TSHon 11-10-2022 TSH 1.244 uIU/mL Normal 0.358-3.740 [facility] Comment on above: Performed By: #### L IPID, CMP, TSH, T7 #### [facility] [address] [place] [address] Dr. Jessica Mosqueda PTH INTACTon 09-28-2022 PTH, Intact 43 pg/mL Normal 15-[address] [facility] Comment on above: Performed By: #### L IPID, CMP, TSH, T7 #### [facility] [address] [place] [address] Dr. Jessica Mosqueda HEMOGRAM AND PLATELon 2022 Hematocrit (Bld) [Volume fraction] 39.0 % Normal 36.0-48.[address] [facility] Comment on above: Performed By: #### H H #### [facility] [address] [place] [address] Dr. Jessica Mosqueda Hemoglobin (Bld) [Mass/Vol] 12.3 g/dL Normal 12.0-16.[address] [facility] Comment on above: Performed By: #### H H #### [facility] [address] [place] [address] Dr. Jessica Mosqueda MCH (RBC) [Entitic mass] 29.1 pg Normal 26.7-34.[address] [facility] Comment on above: Performed By: #### H H #### [facility] [address] [place] [address] Dr. Jessica Mosqueda MCHC (RBC) [Mass/Vol] 31.5 g/dL Normal 29.9-35.[address] [facility] Comment on above: Performed By: #### H H #### [facility] [address] [place] [address] Dr. Jessica Mosqueda MCV (RBC) [Entitic vol] 92.4 fL Normal 81.0-99.[address] [facility] Comment on above: Performed By: #### H H #### [facility] [address] [place] [address] Dr. Jessica Mosqueda PLT 131 103/ul Critically low 150-450 [facility] Comment on above: Performed By: #### H H #### [facility] [address] [place] [address] Dr. Jessica Mosqueda RBC 4.22 106/ul Normal 4.20-5.[address] [facility] Comment on above: Performed By: #### H H #### [facility] [address] [place] [address] Dr. Jessica Mosqueda WBC 8.6 103/ul Normal 4.0-11.[address] [facility] Comment on above: Performed By: #### H H #### [facility] [address] [place] [address] Dr. Jessica Mosqueda PHOSPHORUSon 09-26-2022 Phosphate [Mass/Vol] 4.3 mg/dL Normal 2.6-4.[address] [facility] Comment on above: Performed By: #### P THINT #### [facility] [address] [place] [address] Dr. Jessica Mosqueda PROF 14(COMP METB)on 023 Albumin [Mass/Vol] 3.9 g/dL Normal 3.4-5.[address] [facility] Comment on above: Performed By: #### P THINT #### [facility] [address] [place] [address] Dr. Jessica Mosqueda Albumin/Globulin [Mass ratio] 1.1 {ratio} Normal [facility] Comment on above: Performed By: #### P THINT #### [facility] [address] [place] [address] Dr. Jessica Mosqueda ALP [Catalytic activity/Vol] 34 U/L Critically low 46-[address] [facility] Comment on above: Performed By: #### P THINT #### [facility] [address] [place] [address] Dr. Jessica Mosqueda ALT [Catalytic activity/Vol] 13 U/L Critically low 14-[address] [facility] Comment on above: Performed By: #### P THINT #### [facility] [address] [place] [address] Dr. Jessica Mosqueda Anion gap [Moles/Vol] 13.6 mmol/L Normal [facility] Comment on above: Performed By: #### P THINT #### [facility] [address] [place] [address] Dr. Jessica Mosqueda AST [Catalytic activity/Vol] 9 U/L Critically low 15-[address] [facility] Comment on above: Performed By: #### P THINT #### [facility] [address] [address] [address] Jessica Mosqueda Bilirubin [Mass/Vol] 0.3 mg/dL Normal 0.2-1.[address] [facility] Comment on above: Performed By: #### P THINT #### [facility] [address] [address] [address] Jessica Mosqueda Calcium [Mass/Vol] 9.5 mg/dL Normal 8.5-10.[address] [facility] Comment on above: Performed By: #### P THINT #### [facility] [address] [address] [address] Jessica Mosqueda Chloride [Moles/Vol] 105 mmol/L Normal 98-[address] [facility] Comment on above: Performed By: #### P THINT #### [facility] [address] [address] [address] Jessica Mosqueda CO2 [Moles/Vol] 24.7 mmol/L Normal 21.0-32.0 [facility] Comment on above: Performed By: #### P THINT #### [facility] [address] [address] [address] Jessica Mosqueda Creatinine [Mass/Vol] 1.67 mg/dL Critically high 0.55-1.[address] [facility] Comment on above: Performed By: #### P THINT #### [facility] [address] [address] [address] Jessica Mosqueda EGFR-AF SAUDI ARABIAN 41 mL/min/1.73m2 Critically low >=60 [facility] Comment on above: Performed By: #### P THINT #### [facility] [address] [address] [address] Jessica Mosqueda EGFR-NON AF SAUDI ARABIAN 34 mL/min/1.73m2 Critically low >=[address] [facility] Comment on above: Performed By: #### P THINT #### [facility] [address] [address] [address] Jessica Mosqueda Globulin (S) [Mass/Vol] 3.5 g/dL Normal [facility] Comment on above: Performed By: #### P THINT #### [facility] [address] [address] [address] Jessica Mosqueda Glucose [Mass/Vol] 94 mg/dL Normal 74-[address] [facility] Comment on above: Performed By: #### P THINT #### [facility] [address] [address] [address] Jessica Mosqueda Potassium [Moles/Vol] 4.4 mmol/L Normal 3.5-5.[address] [facility] Comment on above: Performed By: #### P THINT #### [facility] [address] [address] [address] Jessica Mosqueda Protein [Mass/Vol] 7.4 g/dL Normal 6.4-8.[address] [facility] Comment on above: Performed By: #### P THINT #### [facility] [address] [address] [address] Jessica Mosqueda Sodium [Moles/Vol] 139 mmol/L Normal 136-[address] [facility] Comment on above: Performed By: #### P THINT #### [facility] [address] [address] [address] Jessica Mosqueda Urea nitrogen [Mass/Vol] 29.0 mg/dL Critically high 7.0-18.[address] [facility] Comment on above: Performed By: #### P THINT #### [facility] [address] [address] [address] Jessica Mosqueda Urea nitrogen/Creatinine [Mass ratio] 17.4 mg/mg Normal [facility] Comment on above: Performed By: #### P THINT #### [facility] [address] [address] [address] Jessica Mosqueda PTH INTACTon 06-30-2022 PTH, Intact 64 pg/mL Normal 15-[address] [facility] Comment on above: Performed By: #### P THINT #### [facility] [address] [address] [address] Jessica Mosqueda HEMOGRAM AND PLATELon 2021 Hematocrit (Bld) [Volume fraction] 37.5 % Normal 36.0-48.[address] [facility] Comment on above: Performed By: #### P THINT #### [facility] [address] [place] [address] Dr. Jessica Mosqueda Hemoglobin (Bld) [Mass/Vol] 12.1 g/dL Normal 12.0-16.0 [facility] Comment on above: Performed By: #### P THINT #### [facility] [address] [place] [address] Dr. Jessica Mosqueda MCH (RBC) [Entitic mass] 29.0 pg Normal 26.7-34.0 [facility] Comment on above: Performed By: #### P THINT #### [facility] [address] [place] [address] Dr. Jessica Mosqueda MCHC (RBC) [Mass/Vol] 32.3 g/dL Normal 29.9-35.2 [facility] Comment on above: Performed By: #### P THINT #### [facility] [address] [place] [address] Dr. Jessica Mosqueda MCV (RBC) [Entitic vol] 89.9 fL Normal 81.0-99.0 [facility] Comment on above: Performed By: #### P THINT #### [facility] [address] [place] [address] Dr. Jessica Mosqueda PLT 170 103/ul Normal 150-450 [facility] Comment on above: Performed By: #### P THINT #### [facility] [address] [place] [address] Dr. Jessica Mosqueda RBC 4.17 106/ul Critically low 4.20-5.40 [facility] Comment on above: Performed By: #### P THINT #### [facility] [address] [place] [address] Dr. Jessica Mosqueda WBC 9.4 103/ul Normal 4.0-11.0 [facility] Comment on above: Performed By: #### P THINT #### [facility] [address] [place] [address] Dr. Jessica Mosqueda PHOSPHORUSon 06-29-2022 Phosphate [Mass/Vol] 3.8 mg/dL Normal 2.6-4.[address] [facility] Comment on above: Performed By: #### L IPID, CMP, TSH, T7 #### [facility] [address] [address] [address] Jessica Mosqueda PROF 14(COMP METB)on 022 Albumin [Mass/Vol] 4.0 g/dL Normal 3.4-5.[address] [facility] Comment on above: Performed By: #### L IPID, CMP, TSH, T7 #### [facility] [address] [address] [address] Jessica Mosqueda Albumin/Globulin [Mass ratio] 1.2 {ratio} Normal [facility] Comment on above: Performed By: #### L IPID, CMP, TSH, T7 #### [facility] [address] [address] [address] Jessica Mosqueda ALP [Catalytic activity/Vol] 38 U/L Critically low 46-[address] [facility] Comment on above: Performed By: #### L IPID, CMP, TSH, T7 #### [facility] [address] [address] [address] Jessica Mosqueda ALT [Catalytic activity/Vol] 13 U/L Critically low 14-[address] [facility] Comment on above: Performed By: #### L IPID, CMP, TSH, T7 #### [facility] [address] [address] [address] Jessica Mosqueda Anion gap [Moles/Vol] 13.1 mmol/L Normal [facility] Comment on above: Performed By: #### L IPID, CMP, TSH, T7 #### [facility] [address] [address] [address] Jessica Mosqueda AST [Catalytic activity/Vol] 14 U/L Critically low 15-[address] [facility] Comment on above: Performed By: #### L IPID, CMP, TSH, T7 #### [facility] [address] [address] [address] Jessica Mosqueda Bilirubin [Mass/Vol] 0.4 mg/dL Normal 0.2-1.[address] [facility] Comment on above: Performed By: #### L IPID, CMP, TSH, T7 #### [facility] [address] [address] [address] Jessica Mosqueda Calcium [Mass/Vol] 9.2 mg/dL Normal 8.5-10.[address] [facility] Comment on above: Performed By: #### L IPID, CMP, TSH, T7 #### [facility] [address] [address] [address] Jessica Mosqueda Chloride [Moles/Vol] 104 mmol/L Normal 98-[address] [facility] Comment on above: Performed By: #### L IPID, CMP, TSH, T7 #### [facility] [address] [place] [address] Dr. Jessica Mosqueda CO2 [Moles/Vol] 26.1 mmol/L Normal 21.0-32.0 [facility] Comment on above: Performed By: #### L IPID, CMP, TSH, T7 #### [facility] [address] [place] [address] Dr. Jessica Mosqueda Creatinine [Mass/Vol] 1.86 mg/dL Critically high 0.55-1.[address] [facility] Comment on above: Performed By: #### L IPID, CMP, TSH, T7 #### [facility] [address] [place] [address] Dr. Jessica Mosqueda EGFR-AF SAUDI ARABIAN 36 mL/min/1.73m2 Critically low >=60 [facility] Comment on above: Performed By: #### L IPID, CMP, TSH, T7 #### [facility] [address] [place] [address] Dr. Jessica Mosqueda EGFR-NON AF SAUDI ARAB[place] 30 mL/min/1.73m2 Critically low >=[address] [facility] Comment on above: Performed By: #### L IPID, CMP, TSH, T7 #### [facility] [address] [address] [address] Jessica Mosqueda Globulin (S) [Mass/Vol] 3.4 g/dL Normal [facility] Comment on above: Performed By: #### L IPID, CMP, TSH, T7 #### [facility] [address] [address] [address] Jessica Mosqueda Glucose [Mass/Vol] 84 mg/dL Normal 74-106 [facility] Comment on above: Performed By: #### L IPID, CMP, TSH, T7 #### [facility] [address] [address] [address] Jessica Mosqueda Potassium [Moles/Vol] 4.2 mmol/L Normal 3.5-5.[address] [facility] Comment on above: Performed By: #### L IPID, CMP, TSH, T7 #### [facility] [address] [address] [address] Jessica Mosqueda Protein [Mass/Vol] 7.4 g/dL Normal 6.4-8.2 [facility] Comment on above: Performed By: #### L IPID, CMP, TSH, T7 #### [facility] [address] [address] [address] Jessica Mosqueda Sodium [Moles/Vol] 139 mmol/L Normal 136-145 [facility] Comment on above: Performed By: #### L IPID, CMP, TSH, T7 #### [facility] [address] [address] [address] Jessica Mosqueda Urea nitrogen [Mass/Vol] 26.0 mg/dL Critically high 7.0-18.[address] [facility] Comment on above: Performed By: #### L IPID, CMP, TSH, T7 #### [facility] [address] [place] [address] Dr. Jessica Mosqueda Urea nitrogen/Creatinine [Mass ratio] 14.0 mg/mg Normal [facility] Comment on above: Performed By: #### L IPID, CMP, TSH, T7 #### [facility] [address] [place] [address] Dr. Jessica Mosqueda UA RANDOMon 06-29-2022 Bilirubin Ql (U) Negative Normal NEGATIVE [facility] Comment on above: Performed By: #### L IPID, CMP, TSH, T7 #### [facility] [address] [address] [address] Jessica Mosqueda Clarity (U) CLEAR Normal CLEAR [facility] Comment on above: Performed By: #### L IPID, CMP, TSH, T7 #### [facility] [address] [place] [address] Dr. Jessica Mosqueda Color (U) LT. YELLOW Normal YELLOW [facility] Comment on above: Performed By: #### L IPID, CMP, TSH, T7 #### [facility] [address] [address] [address] Jessica Mosqueda Glucose Ql (U) Negative Normal NEGATIVE [facility] Comment on above: Performed By: #### L IPID, CMP, TSH, T7 #### [facility] [address] [place] [address] Dr. Jessica Mosqueda Hemoglobin Ql (U) Negative Normal NEGATIVE [facility] Comment on above: Performed By: #### L IPID, CMP, TSH, T7 #### [facility] [address] [place] [address] Dr. Jessica Mosqueda Ketones Ql (U) Negative Normal NEGATIVE [facility] Comment on above: Performed By: #### L IPID, CMP, TSH, T7 #### [facility] [address] [place] [address] Dr. Jessica Mosqueda LEUKOCYTES Negative Normal NEGATIVE [facility] Comment on above: Performed By: #### L IPID, CMP, TSH, T7 #### [facility] [address] [place] [address] Dr. Jessica Mosqueda Nitrite Ql (U) Negative Normal NEGATIVE [facility] Comment on above: Performed By: #### L IPID, CMP, TSH, T7 #### [facility] [address] [address] [address] Jessica Mosqueda pH (U) 6.0 [pH] Normal 5-[address] [facility] Comment on above: Performed By: #### L IPID, CMP, TSH, T7 #### [facility] [address] [place] [address] Dr. Jessica Mosqueda SPEC GRAVITY <=1.005 Abnormal 1.005-<=1.025 [facility] Comment on above: Performed By: #### L IPID, CMP, TSH, T7 #### [facility] [address] [place] [address] Dr. Jessica Mosqueda UA PROTEIN Negative Normal NEGATIVE/ TRACE [facility] Comment on above: Performed By: #### L IPID, CMP, TSH, T7 #### [facility] [address] [place] [address] Dr. Jessica Mosqueda Urobilinogen Qn (U) 0.2 {Fran'U}/dL Normal 0.2 - 1. [address] [facility] Comment on above: Performed By: #### L IPID, CMP, TSH, T7 #### [facility] [address] [place] [address] Dr. Jessica Mosqueda PROF 14(COMP METB)on 022 Albumin [Mass/Vol] 3.9 g/dL Normal 3.4-5.[address] [facility] Comment on above: Performed By: #### P THINT #### [facility] [address] [place] [address] Dr. Jessica Mosqueda Albumin/Globulin [Mass ratio] 1.1 {ratio} Normal [facility] Comment on above: Performed By: #### P THINT #### [facility] [address] [place] [address] Dr. Jessica Mosqueda ALP [Catalytic activity/Vol] 36 U/L Critically low 46-[address] [facility] Comment on above: Performed By: #### P THINT #### [facility] [address] [place] [address] Dr. Jessica Mosqueda ALT [Catalytic activity/Vol] 17 U/L Normal 14-[address] [facility] Comment on above: Performed By: #### P THINT #### [facility] [address] [place] [address] Dr. Jessica Mosqueda Anion gap [Moles/Vol] 13.9 mmol/L Normal [facility] Comment on above: Performed By: #### P THINT #### [facility] [address] [place] [address] Dr. Jessica Mosqueda AST [Catalytic activity/Vol] 11 U/L Critically low 15-[address] [facility] Comment on above: Performed By: #### P THINT #### [facility] [address] [address] [address] Jessica Mosqueda Bilirubin [Mass/Vol] 0.3 mg/dL Normal 0.2-1.[address] [facility] Comment on above: Performed By: #### P THINT #### [facility] [address] [address] [address] Jessica Mosqueda Calcium [Mass/Vol] 9.2 mg/dL Normal 8.5-10.[address] [facility] Comment on above: Performed By: #### P THINT #### [facility] [address] [address] [address] Jessica Mosqueda Chloride [Moles/Vol] 105 mmol/L Normal 98-[address] [facility] Comment on above: Performed By: #### P THINT #### [facility] [address] [address] [address] Jessica Mosqueda CO2 [Moles/Vol] 26.5 mmol/L Normal 21.0-32.0 [facility] Comment on above: Performed By: #### P THINT #### [facility] [address] [place] [address] Dr. Jessica Mosqueda Creatinine [Mass/Vol] 2.06 mg/dL Critically high 0.55-1.[address] [facility] Comment on above: Performed By: #### P THINT #### [facility] [address] [place] [address] Dr. Jessica Mosqueda EGFR-AF SAUDI ARABIAN 32 mL/min/1.73m2 Critically low >=[address] [facility] Comment on above: Performed By: #### P THINT #### [facility] [address] [address] [address] Jessica Mosqueda EGFR-NON AF SAUDI ARAB[place] 27 mL/min/1.73m2 Critically low >=[address] [facility] Comment on above: Performed By: #### P THINT #### [facility] [address] [address] [address] Jessica Mosqueda Globulin (S) [Mass/Vol] 3.5 g/dL Normal [facility] Comment on above: Performed By: #### P THINT #### [facility] [address] [address] [address] Jessica Mosqueda Glucose [Mass/Vol] 75 mg/dL Normal 74-106 [facility] Comment on above: Performed By: #### P THINT #### [facility] [address] [address] [address] Jessica Mosqueda Potassium [Moles/Vol] 4.4 mmol/L Normal 3.5-5.[address] [facility] Comment on above: Performed By: #### P THINT #### [facility] [address] [place] [address] Dr. Jessica Mosqueda Protein [Mass/Vol] 7.4 g/dL Normal 6.4-8.2 [facility] Comment on above: Performed By: #### P THINT #### [facility] [address] [place] [address] Dr. Jessica Mosqueda Sodium [Moles/Vol] 141 mmol/L Normal 136-145 [facility] Comment on above: Performed By: #### P THINT #### [facility] [address] [place] [address] Dr. Jessica Mosqueda Urea nitrogen [Mass/Vol] 37.0 mg/dL Critically high 7.0-18.[address] [facility] Comment on above: Performed By: #### P THINT #### [facility] [address] [place] [address] Dr. Jessica Mosqueda Urea nitrogen/Creatinine [Mass ratio] 18.0 mg/mg Normal [facility] Comment on above: Performed By: #### P THINT #### [facility] [address] [place] [address] Dr. Jessica Mosqueda PROF 14(COMP METB)on 022 Albumin [Mass/Vol] 3.9 g/dL Normal 3.4-5.0 [facility] Comment on above: Performed By: #### C MP #### [facility] [address] [place] [address] Dr. Jessica Mosqueda Albumin/Globulin [Mass ratio] 1.2 {ratio} Normal [facility] Comment on above: Performed By: #### C MP #### [facility] [address] [place] [address] Dr. Jessica Mosqueda ALP [Catalytic activity/Vol] 32 U/L Critically low 46-[address] [facility] Comment on above: Performed By: #### C MP #### [facility] [address] [place] [address] Dr. Jessica Mosqueda ALT [Catalytic activity/Vol] 12 U/L Critically low 14-[address] [facility] Comment on above: Performed By: #### C MP #### [facility] [address] [place] [address] Dr. Jessica Mosqueda Anion gap [Moles/Vol] 13.6 mmol/L Normal [facility] [facility] Comment on above: Performed By: #### C MP #### [facility] [address] [place] [address] Dr. Jessica Mosqueda AST [Catalytic activity/Vol] 15 U/L Normal 15-[address] [facility] Comment on above: Performed By: #### C MP #### [facility] [address] [place] [address] Dr. Jessica Mosqueda Bilirubin [Mass/Vol] 0.2 mg/dL Normal 0.2-1.[address] [facility] Comment on above: Performed By: #### C MP #### [facility] [address] [place] [address] Dr. Jessica Mosqueda Calcium [Mass/Vol] 9.2 mg/dL Normal 8.5-10.[address] [facility] Comment on above: Performed By: #### C MP #### [facility] [address] [place] [address] Dr. Jessica Mosqueda Chloride [Moles/Vol] 105 mmol/L Normal 98-[address] [facility] Comment on above: Performed By: #### C MP #### [facility] [address] [place] [address] Dr. Jessica Mosqueda CO2 [Moles/Vol] 26.0 mmol/L Normal 21.0-32.0 [facility] Comment on above: Performed By: #### C MP #### [facility] [address] [address] [address] Jessica Mosqueda Creatinine [Mass/Vol] 1.98 mg/dL Critically high 0.55-1.[address] [facility] Comment on above: Performed By: #### C MP #### [facility] [address] [address] [address] Jessica Mosqueda EGFR-AF SAUDI ARABIAN 34 mL/min/1.73m2 Critically low >=[address] [facility] Comment on above: Performed By: #### C MP #### [facility] [address] [address] [address] Jessica Mosqueda EGFR-NON AF SAUDI ARABIAN 28 mL/min/1.73m2 Critically low >=[address] [facility] Comment on above: Performed By: #### C MP #### [facility] [address] [address] [address] Jessica Mosqueda Globulin (S) [Mass/Vol] 3.3 g/dL Normal [facility] Comment on above: Performed By: #### C MP #### [facility] [address] [address] [address] Jessica Mosqueda Glucose [Mass/Vol] 93 mg/dL Normal 74-106 [facility] Comment on above: Performed By: #### C MP #### [facility] [address] [address] [address] Jessica Mosqueda Potassium [Moles/Vol] 4.6 mmol/L Normal 3.5-5.1 [facility] Comment on above: Performed By: #### C MP #### [facility] [address] [address] [address] Jessica Mosqueda Protein [Mass/Vol] 7.2 g/dL Normal 6.4-8.2 [facility] Comment on above: Performed By: #### C MP #### [facility] [address] [address] [address] Jessica Mosqueda Sodium [Moles/Vol] 140 mmol/L Normal 136-[address] [facility] Comment on above: Performed By: #### C MP #### [facility] [address] [place] [address] Dr. Jessica Mosqueda Urea nitrogen [Mass/Vol] 23.0 mg/dL Critically high 7.0-18.[address] [facility] Comment on above: Performed By: #### C MP #### [facility] [address] [place] [address] Dr. Jessica Mosqueda Urea nitrogen/Creatinine [Mass ratio] 11.6 mg/mg Normal [facility] Comment on above: Performed By: #### C MP #### [facility] [address] [place] [address] Dr. Jessica Mosqueda PTH INTACTon 03-23-2022 PTH, Intact 71 pg/mL Critically high 15-65 [facility] Comment on above: Performed By: #### P THINT #### [facility] [address] [place] [address] Dr. Jessica Mosqueda HEMOGRAM AND PLATELon 2021 Hematocrit (Bld) [Volume fraction] 37.8 % Normal 36.0-48.[address] [facility] Comment on above: Performed By: #### H H #### [facility] [address] [place] [address] Dr. Jessica Mosqueda Hemoglobin (Bld) [Mass/Vol] 12.3 g/dL Normal 12.0-16.[address] [facility] Comment on above: Performed By: #### H H #### [facility] [address] [place] [address] Dr. Jessica Mosqueda MCH (RBC) [Entitic mass] 29.6 pg Normal 26.7-34.[address] [facility] Comment on above: Performed By: #### H H #### [facility] [address] [place] [address] Dr. Jessica Mosqueda MCHC (RBC) [Mass/Vol] 32.5 g/dL Normal 29.9-35.[address] [facility] Comment on above: Performed By: #### H H #### [facility] [address] [address] [address] Jessica Mosqueda MCV (RBC) [Entitic vol] 90.9 fL Normal 81.0-99.[address] [facility] Comment on above: Performed By: #### H H #### [facility] [address] [place] [address] Dr. Jessica Mosqueda PLT 158 103/ul Normal 150-450 [facility] Comment on above: Performed By: #### H H #### [facility] [address] [address] [address] Jessica Mosqueda RBC 4.16 106/ul Critically low 4.20-5.40 [facility] Comment on above: Performed By: #### H H #### [facility] [address] [place] [address] Dr. Jessica Mosqueda WBC 10.3 103/ul Normal 4.0-11.[address] [facility] Comment on above: Performed By: #### H H #### [facility] [address] [place] [address] Dr. Jessica Mosqueda PHOSPHORUSon 03-22-2022 Phosphate [Mass/Vol] 4.7 mg/dL Normal 2.6-4.[address] [facility] Comment on above: Performed By: #### L IPID, CMP, TSH, T7 #### [facility] [address] [place] [address] Dr. Jessica Mosqueda PROF 14(COMP METB)on 022 Albumin [Mass/Vol] 4.1 g/dL Normal 3.4-5.[address] [facility] Comment on above: Performed By: #### L IPID, CMP, TSH, T7 #### [facility] [address] [place] [address] Dr. Jessica Mosqueda Albumin/Globulin [Mass ratio] 1.2 {ratio} Normal [facility] Comment on above: Performed By: #### L IPID, CMP, TSH, T7 #### [facility] [address] [place] [address] Dr. Jessica Mosqueda ALP [Catalytic activity/Vol] 36 U/L Critically low 46-[address] [facility] Comment on above: Performed By: #### L IPID, CMP, TSH, T7 #### [facility] [address] [address] [address] Jessica Mosqueda ALT [Catalytic activity/Vol] 16 U/L Normal 14-[address] [facility] Comment on above: Performed By: #### L IPID, CMP, TSH, T7 #### [facility] [address] [address] [address] Jessica Mosqueda Anion gap [Moles/Vol] 15.4 mmol/L Normal Th [facility] Comment on above: Performed By: #### L IPID, CMP, TSH, T7 #### [facility] [address] [address] [address] Jessica Mosqueda AST [Catalytic activity/Vol] 12 U/L Critically low 15-[address] [facility] Comment on above: Performed By: #### L IPID, CMP, TSH, T7 #### [facility] [address] [address] [address] Jessica Mosqueda Bilirubin [Mass/Vol] 0.6 mg/dL Normal 0.2-1.[address] [facility] Comment on above: Performed By: #### L IPID, CMP, TSH, T7 #### [facility] [address] [place] [address] Dr. Jessica Mosqueda Calcium [Mass/Vol] 9.3 mg/dL Normal 8.5-10.[address] [facility] Comment on above: Performed By: #### L IPID, CMP, TSH, T7 #### [facility] [address] [address] [address] Jessica Mosqueda Chloride [Moles/Vol] 103 mmol/L Normal 98-[address] [facility] Comment on above: Performed By: #### L IPID, CMP, TSH, T7 #### [facility] [address] [place] [address] Dr. Jessica Mosqueda CO2 [Moles/Vol] 24.4 mmol/L Normal 21.0-32.0 [facility] Comment on above: Performed By: #### L IPID, CMP, TSH, T7 #### [facility] [address] [address] [address] Jessica Mosqueda Creatinine [Mass/Vol] 2.04 mg/dL Critically high 0.55-1.[address] [facility] Comment on above: Performed By: #### L IPID, CMP, TSH, T7 #### [facility] [address] [address] [address] Jessica Mosqueda EGFR-AF SAUDI ARABIAN 33 mL/min/1.73m2 Critically low >=60 [facility] Comment on above: Performed By: #### L IPID, CMP, TSH, T7 #### [facility] [address] [address] [address] Jessica Mosqueda EGFR-NON AF SAUDI ARABIAN 27 mL/min/1.73m2 Critically low >=[address] [facility] Comment on above: Performed By: #### L IPID, CMP, TSH, T7 #### [facility] [address] [place] [address] Dr. Jessica Mosqueda Globulin (S) [Mass/Vol] 3.3 g/dL Normal [facility] Comment on above: Performed By: #### L IPID, CMP, TSH, T7 #### [facility] [address] [address] [address] Jessica Mosqueda Glucose [Mass/Vol] 84 mg/dL Normal 74-106 [facility] Comment on above: Performed By: #### L IPID, CMP, TSH, T7 #### [facility] [address] [address] [address] Jessica Mosqueda Potassium [Moles/Vol] 3.8 mmol/L Normal 3.5-5.[address] [facility] Comment on above: Performed By: #### L IPID, CMP, TSH, T7 #### [facility] [address] [address] [address] Jessica Mosqueda Protein [Mass/Vol] 7.4 g/dL Normal 6.4-8.2 [facility] Comment on above: Performed By: #### L IPID, CMP, TSH, T7 #### [facility] [address] [place] [address] Dr. Jessica Mosqueda Sodium [Moles/Vol] 139 mmol/L Normal 136-[address] [facility] Comment on above: Performed By: #### L IPID, CMP, TSH, T7 #### [facility] [address] [place] [address] Dr. Jessica Mosqueda Urea nitrogen [Mass/Vol] 30.0 mg/dL Critically high 7.0-18.[address] [facility] Comment on above: Performed By: #### L IPID, CMP, TSH, T7 #### [facility] [address] [place] [address] Dr. Jessica Mosqueda Urea nitrogen/Creatinine [Mass ratio] 14.7 mg/mg Normal [facility] Comment on above: Performed By: #### L IPID, CMP, TSH, T7 #### [facility] [address] [place] [address] Dr. Jessica Mosqueda UA RANDOMon 03-22-2022 Bilirubin Ql (U) Negative Normal NEGATIVE [facility] Comment on above: Performed By: #### L IPID, CMP, TSH, T7 #### [facility] [address] [place] [address] Dr. Jessica Mosqueda Clarity (U) CLEAR Normal CLEAR [facility] Comment on above: Performed By: #### L IPID, CMP, TSH, T7 #### [facility] [address] [place] [address] Dr. Jessica Mosqueda Color (U) LT. YELLOW Normal YELLOW [facility] Comment on above: Performed By: #### L IPID, CMP, TSH, T7 #### [facility] [address] [place] [address] Dr. Jessica Mosqueda Glucose Ql (U) Negative Normal NEGATIVE [facility] Comment on above: Performed By: #### L IPID, CMP, TSH, T7 #### [facility] [address] [place] [address] Dr. Jessica Mosqueda Hemoglobin Ql (U) Negative Normal NEGATIVE [facility] Comment on above: Performed By: #### L IPID, CMP, TSH, T7 #### [facility] [address] [place] [address] Dr. Jessica Mosqueda Ketones Ql (U) Negative Normal NEGATIVE [facility] Comment on above: Performed By: #### L IPID, CMP, TSH, T7 #### [facility] [address] [place] [address] Dr. Jessica Mosqueda LEUKOCYTES Negative Normal NEGATIVE [facility] Comment on above: Performed By: #### L IPID, CMP, TSH, T7 #### [facility] [address] [address] [address] Jessica Mosqueda Nitrite Ql (U) Negative Normal NEGATIVE [facility] Comment on above: Performed By: #### L IPID, CMP, TSH, T7 #### [facility] [address] [address] [address] Jessica Mosqueda pH (U) 5.5 [pH] Normal 5-[address] [facility] Comment on above: Performed By: #### L IPID, CMP, TSH, T7 #### [facility] [address] [place] [address] Dr. Jessica Mosqueda SPEC GRAVITY 1.005 Normal 1.005-<=1.025 [facility] Comment on above: Performed By: #### L IPID, CMP, TSH, T7 #### [facility] [address] [place] [address] Dr. Jessica Mosqueda UA PROTEIN Negative Normal NEGATIVE/ TRACE [facility] Comment on above: Performed By: #### L IPID, CMP, TSH, T7 #### [facility] [address] [address] [address] Jessica Mosqueda Urobilinogen Qn (U) 0.2 {Fran'U}/dL Normal 0.2 - 1. [address] [facility] Comment on above: Performed By: #### L IPID, CMP, TSH, T7 #### [facility] [address] [place] [address] Dr. Jessica Mosqueda URINE T PROTEIN CREAT RATIOo n 03-22-2022 UR TOTAL PROTEIN <6.0 Normal <=12.0 [facility] Comment on above: Performed By: #### L IPID, CMP, TSH, T7 #### [facility] [address] [address] [address] Jessica Mosqueda URINE CREAT 23.46 mg/dL Normal 20.00-300.00 [facility] Comment on above: Performed By: #### L IPID, CMP, TSH, T7 #### [facility] [address] [place] [address] Dr. Jessica Mosqueda PROF 14(COMP METB)on 022 Albumin [Mass/Vol] 3.8 g/dL Normal 3.4-5.[address] [facility] Comment on above: Performed By: #### L IPID, CMP, TSH, T7 #### [facility] [address] [address] [address] Jessica Mosqueda Albumin/Globulin [Mass ratio] 1.3 {ratio} Normal [facility] Comment on above: Performed By: #### L IPID, CMP, TSH, T7 #### [facility] [address] [place] [address] Dr. Jessica Mosqueda ALP [Catalytic activity/Vol] 35 U/L Critically low 46-[address] [facility] Comment on above: Performed By: #### L IPID, CMP, TSH, T7 #### [facility] [address] [place] [address] Dr. Jessica Mosqueda ALT [Catalytic activity/Vol] 17 U/L Normal 14-[address] [facility] Comment on above: Performed By: #### L IPID, CMP, TSH, T7 #### [facility] [address] [address] [address] Jessica Mosqueda Anion gap [Moles/Vol] 12.2 mmol/L Normal [facility] Comment on above: Performed By: #### L IPID, CMP, TSH, T7 #### [facility] [address] [address] [address] Jessica Mosqueda AST [Catalytic activity/Vol] 13 U/L Critically low 15-[address] [facility] Comment on above: Performed By: #### L IPID, CMP, TSH, T7 #### [facility] [address] [place] [address] Dr. Jessica Mosqueda Bilirubin [Mass/Vol] 0.4 mg/dL Normal 0.2-1.[address] [facility] Comment on above: Performed By: #### L IPID, CMP, TSH, T7 #### [facility] [address] [address] [address] Jessica Mosqueda Calcium [Mass/Vol] 8.6 mg/dL Normal 8.5-10.[address] [facility] Comment on above: Performed By: #### L IPID, CMP, TSH, T7 #### [facility] [address] [address] [address] Jessica Mosqueda Chloride [Moles/Vol] 106 mmol/L Normal 98-[address] [facility] Comment on above: Performed By: #### L IPID, CMP, TSH, T7 #### [facility] [address] [place] [address] Dr. Jessica Mosqueda CO2 [Moles/Vol] 26.1 mmol/L Normal 21.0-32.0 [facility] Comment on above: Performed By: #### L IPID, CMP, TSH, T7 #### [facility] [address] [place] [address] Dr. Jessica Mosqueda Creatinine [Mass/Vol] 1.76 mg/dL Critically high 0.55-1.[address] [facility] Comment on above: Performed By: #### L IPID, CMP, TSH, T7 #### [facility] [address] [place] [address] Dr. Jessica Mosqueda EGFR-AF SAUDI ARABIAN 39 mL/min/1.73m2 Critically low >=60 [facility] Comment on above: Performed By: #### L IPID, CMP, TSH, T7 #### [facility] [address] [place] [address] Dr. Jessica Mosqueda EGFR-NON AF SAUDI ARAB[place] 32 mL/min/1.73m2 Critically low >=[address] [facility] Comment on above: Performed By: #### L IPID, CMP, TSH, T7 #### [facility] [address] [place] [address] Dr. Jessica Mosqueda Globulin (S) [Mass/Vol] 3.0 g/dL Normal [facility] Comment on above: Performed By: #### L IPID, CMP, TSH, T7 #### [facility] [address] [address] [address] Jessica Mosqueda Glucose [Mass/Vol] 81 mg/dL Normal 74-106 [facility] Comment on above: Performed By: #### L IPID, CMP, TSH, T7 #### [facility] [address] [address] [address] Jessica Mosqueda Potassium [Moles/Vol] 4.3 mmol/L Normal 3.5-5.1 [facility] Comment on above: Performed By: #### L IPID, CMP, TSH, T7 #### [facility] [address] [place] [address] Dr. Jessica Mosqueda Protein [Mass/Vol] 6.8 g/dL Normal 6.4-8.2 [facility] Comment on above: Performed By: #### L IPID, CMP, TSH, T7 #### [facility] [address] [address] [address] Jessica Mosqueda Sodium [Moles/Vol] 140 mmol/L Normal 136-145 [facility] Comment on above: Performed By: #### L IPID, CMP, TSH, T7 #### [facility] [address] [address] [address] Jessica Mosqueda Urea nitrogen [Mass/Vol] 20.0 mg/dL Critically high 7.0-18.0 [facility] Comment on above: Performed By: #### L IPID, CMP, TSH, T7 #### [facility] [address] [place] [address] Dr. Jessica Mosqueda Urea nitrogen/Creatinine [Mass ratio] 11.4 mg/mg Normal [facility] Comment on above: Performed By: #### L IPID, CMP, TSH, T7 #### [facility] [address] [place] [address] Dr. Jessica Mosqueda PROF 14(COMP METB)on 022 Albumin [Mass/Vol] 4.0 g/dL Normal 3.4-5.0 [facility] Comment on above: Performed By: #### L IPID, CMP, TSH, T7 #### [facility] [address] [address] [address] Jessica Mosqueda Albumin/Globulin [Mass ratio] 1.2 {ratio} Normal [facility] Comment on above: Performed By: #### L IPID, CMP, TSH, T7 #### [facility] [address] [address] [address] Jessica Mosqueda ALP [Catalytic activity/Vol] 31 U/L Critically low 46-[address] [facility] Comment on above: Performed By: #### L IPID, CMP, TSH, T7 #### [facility] [address] [address] [address] Jessica Mosqueda ALT [Catalytic activity/Vol] 19 U/L Normal 14-[address] [facility] Comment on above: Performed By: #### L IPID, CMP, TSH, T7 #### [facility] [address] [place] [address] Dr. Jessica Mosqueda Anion gap [Moles/Vol] 13.7 mmol/L Normal [facility] Comment on above: Performed By: #### L IPID, CMP, TSH, T7 #### [facility] [address] [place] [address] Dr. Jessica Mosqueda AST [Catalytic activity/Vol] 12 U/L Critically low 15-[address] [facility] Comment on above: Performed By: #### L IPID, CMP, TSH, T7 #### [facility] [address] [address] [address] Jessica Mosqueda Bilirubin [Mass/Vol] 0.3 mg/dL Normal 0.2-1.[address] [facility] Comment on above: Performed By: #### L IPID, CMP, TSH, T7 #### [facility] [address] [place] [address] Dr. Jessica Mosqueda Calcium [Mass/Vol] 9.3 mg/dL Normal 8.5-10.[address] [facility] Comment on above: Performed By: #### L IPID, CMP, TSH, T7 #### [facility] [address] [place] [address] Dr. Jessica Mosqueda Chloride [Moles/Vol] 106 mmol/L Normal 98-107 [facility] Comment on above: Performed By: #### L IPID, CMP, TSH, T7 #### [facility] [address] [address] [address] Jessica Mosqueda CO2 [Moles/Vol] 25.4 mmol/L Normal 21.0-32.0 [facility] Comment on above: Performed By: #### L IPID, CMP, TSH, T7 #### [facility] [address] [address] [address] Jessica Mosqueda Creatinine [Mass/Vol] 1.84 mg/dL Critically high 0.55-1.[address] [facility] Comment on above: Performed By: #### L IPID, CMP, TSH, T7 #### [facility] [address] [place] [address] Dr. Jessica Mosqueda EGFR-AF SAUDI ARABIAN 37 mL/min/1.73m2 Critically low >=[address] [facility] Comment on above: Performed By: #### L IPID, CMP, TSH, T7 #### [facility] [address] [address] [address] Jessica Mosqueda EGFR-NON AF SAUDI ARAB[place] 30 mL/min/1.73m2 Critically low >=60 [facility] Comment on above: Performed By: #### L IPID, CMP, TSH, T7 #### [facility] [address] [address] [address] Jessica Mosqueda Globulin (S) [Mass/Vol] 3.4 g/dL Normal [facility] Comment on above: Performed By: #### L IPID, CMP, TSH, T7 #### [facility] [address] [address] [address] Jessica Mosqueda Glucose [Mass/Vol] 99 mg/dL Normal 74-[address] [facility] Comment on above: Performed By: #### L IPID, CMP, TSH, T7 #### [facility] [address] [address] [address] Jessica Mosqueda Potassium [Moles/Vol] 4.1 mmol/L Normal 3.5-5.1 [facility] Comment on above: Performed By: #### L IPID, CMP, TSH, T7 #### [facility] [address] [address] [address] Jessica Mosqueda Protein [Mass/Vol] 7.4 g/dL Normal 6.4-8.2 [facility] Comment on above: Performed By: #### L IPID, CMP, TSH, T7 #### [facility] [address] [place] [address] Dr. Jessica Mosqueda Sodium [Moles/Vol] 141 mmol/L Normal 136-145 [facility] [facility] Comment on above: Performed By: #### L IPID, CMP, TSH, T7 #### [facility] [address] [place] [address] Dr. Jessica Mosqueda Urea nitrogen [Mass/Vol] 25.0 mg/dL Critically high 7.0-18.[address] [facility] Comment on above: Performed By: #### L IPID, CMP, TSH, T7 #### [facility] [address] [place] [address] Dr. Jessica Mosqueda Urea nitrogen/Creatinine [Mass ratio] 13.6 mg/mg Normal [facility] Comment on above: Performed By: #### L IPID, CMP, TSH, T7 #### [facility] [address] [place] [address] Dr. Jessica ATLAMIRANOPon 09-04-2019 CNOVS Visit (SP) Office ([place]) ISABEL RIVERA ([id number]) 1980 F Date Time Provider Department 09/04/19 3:45 PM LUIS ANGEL HALL During your visit today, we recorded the following information about you: Temperature Pulse Respiration Blood pressure 97.6 degrees 66/minute 18/minute 115/66 Weight Height 82.2 kg 1.676 m Luis Angel Hall, DO 09/06/2019 9:21 AM Signed PATIENT NAME: Isabel Rivera REFERRING PHYSICIAN: Timothy Mills MD [address] [place] [address] [place] [address] PRIMARY CARE PHYSICIAN: Maren James MD CHIEF [...] did not have a lupus anticoagulant. Protein FIELD CARE ADVOCATE were within expected ranges. She had negative [...] 2017. Right posterior tibial vein and associated wellness program manager veins. Follows with Dr. Bateman, vascular. She does exercise slightly 3 days a week and works a [employer] in [facility]. Medications as of September 2017 [...] questions satisfactorily.. Ankit Hall D.O. Medical Oncologist [place], [place] Cc. Dr. Bateman. Referring Provider: LUIS ANGEL HALL [[id number]] Allergies As of Date: 09/04/2019 Noted Allergy [...] LUIS ANGEL HALL DO on 09/06/19 Normal [facility] PROGRESSon 09-04-2019 PROGRESS HNO ID: [id number] Author: Luis Angel Hall Service: ? Author Type: Physician Type: Progress Notes Filed: 09/06/2019 9:21 AM Note Text: PATIENT NAME: Isabel Rivera REFERRING PHYSICIAN: Timothy Mills MD [address] [place] [address] [place] [address] PRIMARY CARE PHYSICIAN: Maren James MD CHIEF [...] did not have a lupus anticoagulant. Protein FIELD CARE ADVOCATE were within expected ranges. She had negative [...] 2017. Right posterior tibial vein and associated wellness program manager veins. Follows with Dr. Bateman, vascular. She does exercise slightly 3 days a week and works a [employer] in [facility]. Medications as of September 2017 [...] questions satisfactorily.. Ankit Hall D.O. Medical Oncologist [place], [place] Cc. Dr. Bateman. [facility] CNOVSP Visit (SP) Office ([place]) CHULAISABEL LEDBETTER ([id number]) 1980 F Date Time Provider Department 07/30/19 3:45 PM LUIS ANGEL HALL H[facility] During your visit today, we recorded the following information about you: Temperature Pulse Respiration Blood pressure 98.4 degrees 61/minute 16/minute 107/69 Weight Height 80.6 kg 1.676 m Luis Angel Hall DO 08/02/2019 11:50 AM Signed PATIENT NAME: Isabel Rivera REFERRING PHYSICIAN: Timothy Mills MD [address] [place] [address] [place] [address] PRIMARY CARE PHYSICIAN: Maren James MD CHIEF [...] TIBC - CBC + DIFF (FOR REMOTE [facility] USE) - BASIC METABOLIC [...] 2017. Right posterior tibial vein and associated wellness program manager veins. Follows with Dr. Bateman, vascular. She does exercise slightly 3 days a week and works a [employer] in [facility]. Medications as of September 2017 [...] questions satisfactorily.. Ankit Hall D.O. Medical Oncologist [place], [place] Cc. Dr. Bateman. Referring Provider: TIMOTHY MILLS [[id number]] Allergies As of Date: 07/30/2019 (Not on File) Date Reviewed: 07/30/2019 Reviewed by: Lavonne Borrego - Fully Assessed Reason for Visit: Consult [173] Primary Visit Diagnosis:Acute deep vein thrombosis (DVT) of proximal vein of both lower extremities (HCC) [I82.4Y3] Order(s):US LEG VEIN DVT [facility] [[id number]] Order #: [id number] FUTURE FACTOR V LEIDEN/PCR [SQFVLEID] Order #: [id number] FUTURE PROTHROMBIN GENE PCR [SQPTGENE] Order #: [id number] FUTURE PROTEIN C FUNCT [SQPRCFUN] Order #: [id number] FUTURE PROTEIN S CLOTTABLE [SQPRSCLT] Order #: [id number] FUTURE ANTITHROMBIN ACTIVITY [UYGX4CNH] Order #: [id number] FUTURE LUPUS ANTICOAG PL [SQLUPUSP] Order #: [id number] FUTURE B 2 GPI IGG AND IGM [RHM6HCVU] Order #: [id number] FUTURE ANTI-CARDIOLIPIN AB [SQCARDIO] Order #: [id number] FUTURE HOMOCYSTEINE [SQHOMCYS] Order #: [id number] FUTURE FERRITIN BLD [SQFERR] Order #: [id number] FUTURE IRON + TIBC [SQIRON] Order #: [id number] FUTURE CBC + DIFF (FOR REMOTE [facility] USE) [SQRCBCDF] Order #: [id number] FUTURE BASIC METABOLIC PNL [SQBMP] Order #: [id number] FUTURE HEPATIC FUNCTION PNL [SQHFP] Order #: [id number] FUTURE Disposition: Return labs today. f/u 4 [...] by LUIS ANGEL HALL DO on 08/02/19 [facility] PROGRESSon 07-30-2019 PROGRESS HNO ID: [id number] Author: Luis Angel Hall Service: ? Author Type: Physician Type: Progress Notes Filed: 08/02/2019 11:50 AM Note Text: PATIENT NAME: Isabel Rivera REFERRING PHYSICIAN: Timothy Mills MD [address] [place] [address] [place] [address] PRIMARY CARE PHYSICIAN: Maren James MD CHIEF [...] today. f/u 4 to [address]ks[address] BL VENTURA FREDERICK please. . Recurrent DVT First provoked after [...] 2017. Right posterior tibial vein and associated wellness program manager veins. Follows with Dr. Bateman, vascular. She does exercise slightly 3 days a week and works a [employer] in [facility]. Medications as of September 2017 [...] questions satisfactorily.. Ankit Hall D.O. Medical Oncologist [place], [place] Cc. Dr. Bateman. Normal [facility] Vital Signs Date Time Vital Sign Value Performing Clinician Facility 10-02-2024 15:31-0500 Body height 167.64 cm [facility] 10-02-2024 15:31-0500 Body mass index (BMI) [Ratio] 32.1 kg/m2 [facility] 10-02-2024 15:31-0500 Body weight 90.43 kg [facility] 10-02-2024 15:31-0500 Diastolic blood pressure 82 mm[Hg] [facility] 10-02-2024 15:31-0500 Heart rate 65 /min [facility] 10-02-2024 15:31-0500 Respiratory rate 16 /min [facility] 10-02-2024 15:31-0500 SaO2% (BldA) [Mass fraction] 100 % [facility] 10-02-2024 15:31-0500 Systolic blood pressure 119 mm[Hg] [facility] 07-10-2024 10:21-0500 Body height 167.64 cm [facility] 07-10-2024 10:21-0500 Body mass index (BMI) [Ratio] 32.6 kg/m2 [facility] 07-10-2024 10:21-0500 Body temperature 97 [degF] [facility] 07-10-2024 10:21-0500 Body weight 91.68 kg [facility] 07-10-2024 10:21-0500 Diastolic blood pressure 104 mm[Hg] [facility] 07-10-2024 10:21-0500 Heart rate 62 /min [facility] 07-10-2024 10:21-0500 Respiratory rate 16 /min [facility] 07-10-2024 10:21-0500 SaO2% (BldA) [Mass fraction] 100 % [facility] 07-10-2024 10:21-0500 Systolic blood pressure 150 mm[Hg] [facility] 03-27-2024 16:25-0400 Body height 167.64 cm [facility] 03-27-2024 16:25-0400 Body mass index (BMI) [Ratio] 32.3 kg/m2 [facility] 03-27-2024 16:25-0400 Body temperature 96.9 [degF] [facility] 03-27-2024 16:25-0400 Body weight 90.74 kg [facility] 03-27-2024 16:25-0400 Diastolic blood pressure 78 mm[Hg] [facility] 03-27-2024 16:25-0400 Heart rate 53 /min [facility] 03-27-2024 16:25-0400 Respiratory rate 16 /min [facility] 03-27-2024 16:25-0400 SaO2% (BldA) [Mass fraction] 100 % [facility] 03-27-2024 16:25-0400 Systolic blood pressure 117 mm[Hg] [facility] 01-10-2024 15:58-0400 Body height 167.64 cm [facility] 01-10-2024 15:58-0400 Body mass index (BMI) [Ratio] 33.5 kg/m2 [facility] 01-10-2024 15:58-0400 Body temperature 97.2 [degF] [facility] 01-10-2024 15:58-0400 Body weight 94.34 kg [facility] 01-10-2024 15:58-0400 Diastolic blood pressure 84 mm[Hg] [facility] 01-10-2024 15:58-0400 Heart rate 68 /min [facility] 01-10-2024 15:58-0400 Respiratory rate 16 /min [facility] 01-10-2024 15:58-0400 SaO2% (BldA) [Mass fraction] 100 % [facility] 01-10-2024 15:58-0400 Systolic blood pressure 130 mm[Hg] [facility] 10-11-2023 15:51-0500 Body height 167.64 cm [facility] 10-11-2023 15:51-0500 Body mass index (BMI) [Ratio] 33.6 kg/m2 [facility] 10-11-2023 15:51-0500 Body temperature 97.9 [degF] [facility] 10-11-2023 15:51-0500 Body weight 94.57 kg [facility] 10-11-2023 15:51-0500 Diastolic blood pressure 81 mm[Hg] [facility] 10-11-2023 15:51-0500 Heart rate 72 /min [facility] 10-11-2023 15:51-0500 Respiratory rate 16 /min [facility] 10-11-2023 15:51-0500 SaO2% (BldA) [Mass fraction] 100 % [facility] 10-11-2023 15:51-0500 Systolic blood pressure 127 mm[Hg] [facility] 06-28-2023 16:00-0500 Body height 172.72 cm Maeve Sahnidank Other [facility] Other 06-28-2023 16:00-0500 Body mass index (BMI) [Ratio] 31.35 kg/m2 Maeve Sahnidank Other [facility] Other 06-28-2023 16:00-0500 Body temperature 97.3 [degF] Maeve Tiffanie Other [facility] Other 06-28-2023 16:00-0500 Body weight 93.53 kg Maeve Sahnidank Other [facility] Other 06-28-2023 16:00-0500 Diastolic blood pressure 87 mm[Hg] Maeve Sahnidank Other [facility] Other 06-28-2023 16:00-0500 Respiratory rate 18 /min Maeve Moreno Other [facility] Other 06-28-2023 16:00-0500 SaO2% (BldA) [Mass fraction] 98 % Maeve Moreno Other [facility] Other 06-28-2023 16:00-0500 Systolic blood pressure 141 mm[Hg] Maeve Moreno Other [facility] Other 04-05-2023 16:00-0400 Body height 172.72 cm Mavee Moreno Other [facility] Other 04-05-2023 16:00-0400 Body mass index (BMI) [Ratio] 31.23 kg/m2 Maeve Moreno Other [facility] Other 04-05-2023 16:00-0400 Body temperature 96.4 [degF] Maeve Moreno Other [facility] Other 04-05-2023 16:00-0400 Body weight 93.17 kg Maeve Moreno Other [facility] Other 04-05-2023 16:00-0400 Diastolic blood pressure 85 mm[Hg] Maeve Moreno Other [facility] Other 04-05-2023 16:00-0400 Respiratory rate 18 /min Maeve Moreno Other [facility] Other 04-05-2023 16:00-0400 SaO2% (BldA) [Mass fraction] 99 % Maeve Moreno Other [facility] Other 04-05-2023 16:00-0400 Systolic blood pressure 134 mm[Hg] Maeve Moreno Other [facility] Other 12-21-2022 17:00-0400 Body height 172.72 cm Maeve Moreno Other [facility] Other 12-21-2022 17:00-0400 Body mass index (BMI) [Ratio] 31.14 kg/m2 Maeve Moreno Other [facility] Other 12-21-2022 17:00-0400 Body temperature 96.5 [degF] Maeve Moreno Other [facility] Other 12-21-2022 17:00-0400 Body weight 92.9 kg Maeve Moreno Other [facility] Other 12-21-2022 17:00-0400 Diastolic blood pressure 84 mm[Hg] Maeve Moreno Other [facility] Other 12-21-2022 17:00-0400 Respiratory rate 18 /min Maeve Moreno Other [facility] Other 12-21-2022 17:00-0400 SaO2% (BldA) [Mass fraction] 98 % Maeve Moreno Other [facility] Other 12-21-2022 17:00-0400 Systolic blood pressure 138 mm[Hg] Maeve Moreno Other [facility] Other 09-28-2022 17:00-0500 Body height 172.72 cm Maeve Sahnidank Other [facility] Other 09-28-2022 17:00-0500 Body mass index (BMI) [Ratio] 31.11 kg/m2 Maeve Moreno Other [facility] Other 09-28-2022 17:00-0500 Body temperature 98.2 [degF] Maeve Moreno Other [facility] Other 09-28-2022 17:00-0500 Body weight 92.81 kg Maeve Moreno Other [facility] Other 09-28-2022 17:00-0500 Diastolic blood pressure 94 mm[Hg] Maeve Moreno Other [facility] Other 09-28-2022 17:00-0500 Respiratory rate 18 /min Maeve Moreno Other [facility] Other 09-28-2022 17:00-0500 SaO2% (BldA) [Mass fraction] 98 % Maeve Moreno Other [facility] Other 09-28-2022 17:00-0500 Systolic blood pressure 144 mm[Hg] Maeve Moreno Other [facility] Other 07-06-2022 17:00-0500 Body height 172.72 cm Maeve Moreno Other [facility] Other 07-06-2022 17:00-0500 Body mass index (BMI) [Ratio] 30.32 kg/m2 Maeve Moreno Other [facility] Other 07-06-2022 17:00-0500 Body temperature 97.1 [degF] Maeve Moreno Other [facility] Other 07-06-2022 17:00-0500 Body weight 90.45 kg Maeve Moreno Other [facility] Other 07-06-2022 17:00-0500 Diastolic blood pressure 87 mm[Hg] Maeve Moreno Other [facility] Other 07-06-2022 17:00-0500 Respiratory rate 18 /min Maeve Moreno Other [facility] Other 07-06-2022 17:00-0500 SaO2% (BldA) [Mass fraction] 99 % Maeve Moreno Other [facility] Other 07-06-2022 17:00-0500 Systolic blood pressure 128 mm[Hg] Maeve Moreno Other [facility] Other 03-23-2022 16:40-0400 Body height 172.72 cm Maeve Moreno Other [facility] Other 03-23-2022 16:40-0400 Body mass index (BMI) [Ratio] 30.47 kg/m2 Maeve Moreno Other [facility] Other 03-23-2022 16:40-0400 Body temperature 96.9 [degF] Maeve Moreno Other [facility] Other 03-23-2022 16:40-0400 Body weight 90.9 kg Maeve Moreno Other [facility] Other 03-23-2022 16:40-0400 Diastolic blood pressure 80 mm[Hg] Maeve Moreno Other [facility] Other 03-23-2022 16:40-0400 Respiratory rate 18 /min Maeve Moreno Other [facility] Other 03-23-2022 16:40-0400 SaO2% (BldA) [Mass fraction] 99 % Maeve Moreno Other [facility] Other 03-23-2022 16:40-0400 Systolic blood pressure 116 mm[Hg] Maeve Moreno Other [facility] Other 08-09-2021 17:00-0500 Body height 172.72 cm Maeve Moreno Other [facility] Other 08-09-2021 17:00-0500 Body mass index (BMI) [Ratio] 30.53 kg/m2 Maeve Moreno Other [facility] Other 08-09-2021 17:00-0500 Body weight 91.08 kg Maeve Moreno Other [facility] Other 08-09-2021 17:00-0500 Diastolic blood pressure 80 mm[Hg] Maeve Moreno Other [facility] Other 08-09-2021 17:00-0500 Respiratory rate 18 /min Maeve Moreno Other [facility] Other 08-09-2021 17:00-0500 SaO2% (BldA) [Mass fraction] 99 % Maeve Sahnidank Other [facility] Other 08-09-2021 17:00-0500 Systolic blood pressure 142 mm[Hg] Maeve Moreno Other [facility] Other Encounters Encounter Date Encounter Type Care Provider Facility Start: 10-02-2024 End: 10-02-2024 ambulatory [facility] Work Phone: Start: 10-02-2024 End: 10-02-2024 Patient encounter procedure [facility] [place] Work Phone: Start: 07-10-2024 End: 07-10-2024 ambulatory [facility] Work Phone: Start: 07-10-2024 End: 07-10-2024 Patient encounter procedure [facility] [place] Work Phone: Start: 03-27-2024 End: 03-27-2024 ambulatory [facility] Work Phone: Start: 03-27-2024 End: 03-27-2024 Patient encounter procedure [facility] Work Phone: Start: 03-20-2024 Non-patient / Non-visit [facility] Work Phone: Start: 01-10-2024 End: 01-10-2024 ambulatory [facility] Work Phone: Start: 01-10-2024 End: 01-10-2024 Patient encounter procedure [facility] Work Phone: Start: 10-11-2023 End: 10-11-2023 ambulatory [facility] Work Phone: Start: 10-11-2023 End: 10-11-2023 Patient encounter procedure [facility] Work Phone: Start: 06-28-2023 End: 06-28-2023 ambulatory Maeve Moreno Other [facility] Other Start: 06-28-2023 Office outpatient vi sit 15 minutes Maeve Moreno [facility] Start: 06-26-2023 End: 06-26-2023 ambulatory Maeve Moreno Other [facility] Other Start: 06-26-2023 Telephone encounter Maeve Moreno [facility] Start: 05-07-2023 End: 05-07-2023 ambulatory Maeve Moreno Other [facility] Other Start: 05-07-2023 Telephone encounter Maeve Moreno [facility] Start: 04-05-2023 End: 04-05-2023 ambulatory Maeve Moreno Other [facility] Other Start: 04-05-2023 Office outpatient vi sit 25 minutes Maeve Sahnidank [facility] Start: 03-27-2023 End: 03-27-2023 ambulatory Maeve Moreno Other [facility] Other Start: 03-27-2023 Telephone encounter Maeve Moreno [facility] Start: 03-12-2023 End: 03-12-2023 ambulatory Maeve Moreno Other [facility] Other Start: 03-12-2023 Telephone encounter Maeve Moreno [facility] Start: 12-21-2022 End: 12-21-2022 ambulatory Maeve Moreno Other [facility] Other Start: 12-21-2022 Office outpatient vi sit 25 minutes Maeve Moreno [facility] Start: 12-18-2022 End: 12-18-2022 ambulatory Maeve Moreno Other [facility] Other Start: 12-18-2022 Telephone encounter Maeve Sahnidank [facility] Start: 12-13-2022 End: 12-14-[address] MAEVE MORENO Facility:[facility] Start: 11-14-2022 End: 11-15-[address] MAREN JAMES . Facility:[facility] Start: 11-13-2022 Encounter for genera l adult medical examination without abnormal findings DR MAREN JAMES . [facility] Start: 11-10-2022 End: 11-11-[address] MAREN JAMES . Facility:[facility] Start: 11-10-2022 End: 11-11-2022 Encounter for general adult medical examination without abnormal findings DR MAREN JAMES . Facility:[facility] Start: 09-28-2022 End: 09-28-2022 ambulatory Maeve Moreno Other [facility] Other Start: 09-28-2022 Office outpatient vi sit 25 minutes Maeve Moreno [facility] Start: 09-26-2022 End: 09-27-[address] MAEVE MORENO Facility:[facility] Start: 07-06-2022 End: 07-06-2022 ambulatory Maeve Moreno Other [facility] Other Start: 07-06-2022 Office outpatient vi sit 25 minutes Maeve Moreno [facility] Start: 07-04-2022 End: 07-04-2022 ambulatory Maeve Moreno Other [facility] Other Start: 07-04-2022 Telephone encounter Maeve Moreno [facility] Start: 06-29-2022 End: 06-30-[address] MAEVE MORENO Facility:[facility] Start: 05-25-2022 End: 05-26-[address] MAEVE MORENO Facility:[facility] Start: 04-25-2022 End: 04-26-[address] MAEVE MORENO Facility:[facility] Start: 04-17-2022 End: 04-17-2022 ambulatory Maeve Moreno Other [facility] Other Start: 04-17-2022 Telephone encounter Maeve Moreno [facility] Start: 03-23-2022 End: 03-23-2022 ambulatory Maeve Moreno Other [facility] Other Start: 03-23-2022 Office outpatient vi sit 25 minutes Sekouparam Sahnidank [facility] Start: 03-22-2022 End: 03-23-[address] MAEVE MORENO Facility:[facility] Start: 02-06-2022 End: 02-07-[address] MAEVE MORENO Facility:[facility] Start: 01-13-2022 End: 01-14-[address] MAEVE MORENO [facility] Other Start: 01-13-2022 Telephone encounter Maeve Sahnidank [facility] Start: 10-04-2021 End: 10-04-2021 ambulatory Maeve Sahnidank Other [facility] Other Start: 10-04-2021 Telephone encounter Maeve Moreno [facility] Start: 09-14-2021 End: 09-14-2021 ambulatory Sekouparam Moreno Other [facility] Other Start: 09-14-2021 Telephone encounter Maeve Sahnidank [facility] Start: 08-09-2021 End: 08-09-2021 ambulatory Maeve Moreno Other [facility] Other Start: 08-09-2021 Office outpatient vi sit 25 minutes Maeve Sahnidank [facility] Start: 07-26-2021 End: 07-26-2021 ambulatory Maeve Moreno Other [facility] Other Start: 07-26-2021 Telephone encounter Maeve Sahnidank [facility] [employer] [employer] Start: 09-28-2020 End: 09-28-2020 ambulatory Maeve Moreno Other [facility] Other Start: 09-28-2020 Telephone encounter Maeve Sahnidank [facility] Plan of Treatment Date Care Activity Detail Author Comprehensive metabo lic 1999 panel - Serum or Plasma [facility] enter Comprehensive metabo lic 2000 panel - Serum or Plasma [facility] enter Comprehensive metabo lic 1999 panel - Serum or Plasma [facility] enter Comprehensive metabo lic 1999 panel - Serum or Plasma [facility] enter Comprehensive metabo lic 1999 panel - Serum or Plasma [facility] enter [facility] Payers Date Payer Category Payer Unknown [id number] 1980 Unknown [id number] 1980 Unknown [id number] 1980 Unknown [id number] 1980 Unknown [id number] 1980 Unknown [id number] 1980 Unknown [id number] 1980 Unknown [id number] 1980 Unknown [id number] 1980 Unknown [id number] 1958 Private Health Insurance [id number] Private Health Insurance [employer] [id number] Self-pay Self Pay [id number] Unknown [facility] [id number] Social History Date Type Detail Facility Unknown if ever smoked [facility] Other Sex Assigned At Sex Assigned At Bir th [facility] Other Start: 10-11-2023 End: 10-02-2024 Tobacco smoking status NHIS Never smoked tobacco (finding) [facility] Start: 1980 Sex Assigned At Female F [facility] Start: 07-10-2024 End: 10-02-2024 Sex Female (finding) [facility] Clinical Notes 09-28-2020 to 07-10-2024 Note Date & Type Note Facility 07-10-2024 Evaluation note Diagnosis Onset Date Resolution 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 July 10, 2 024 3:50pm CKD (chronic kidney disease) stage 4, GFR 15-29 ml/min acute July 10, 2 024 3:50pm Factor V Leiden acute July 10, 2024 3:50pm Hypertensive chronic kidney disease with stage 1 through stage 4 chronic ki acute July 10, 2 024 3:50pm 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 October 02, 2 025 3:29pm CKD (chronic kidney disease) stage 4, GFR 15-29 ml/min acute October 02, 2 025 3:29pm Factor V Leiden acute October 02, 2024 3:29pm Hypertensive chronic kidney disease with stage 1 through stage 4 chronic ki acute October 02, 2 025 3:29pm [facility] Work Phone: 1(219) 929-859511-09-2023 Evaluation note* Encounter Date Diagnosis Assessment Notes [...] She was informed that they may need LEAD GAME DESIGNER in near future. Will refer to transplant [...] more than 140s. She has no proteinuria. [facility] Other 09-18-2023 Evaluation note* Encounter Date Diagnosis Assessment Notes Treatment Notes Treatment Clinical Notes Apr, Polycystic dysplastic kidney (ICD-10 - Q61.3) [facility] Other 08-17-2023 Evaluation note* Encounter Date Diagnosis [...] She was informed that they may need LEAD GAME DESIGNER in near future. Will refer to transplant [...] more than 40s. She has no proteinuria. [facility] Other 05-04-2023 Evaluation note* Encounter Date Diagnosis [...] She was informed that they may need LEAD GAME DESIGNER in near future. Will refer to transplant [...] more than 140s. She has no proteinuria. [facility] Other 02-09-2023 Evaluation note* Encounter Date Diagnosis [...] She was informed that they may need LEAD GAME DESIGNER in near future. Will refer to transplant [...] to check blood pressure at my office. [facility] Other 11-17-2022 Evaluation note* Encounter Date Diagnosis Assessment Notes Treatment Notes Treatment Clinical Notes 17 Nov, 2022 Polycystic dysplastic kidney (ICD-10 - Q61.3) She [...] She was informed that they may need LEAD GAME DESIGNER in near future. Will refer to transplant [...] She has no bleeding events or hematuria. [facility] Other 08-04-2022 Evaluation note* Encounter Date Diagnosis [...] She was informed that they may need LEAD GAME DESIGNER in near future. Will refer to transplant [...] She has no bleeding events or hematuria. [facility] Other 05-27-2022 Evaluation note* Encounter Date Diagnosis Assessment Notes Treatment Notes Treatment Clinical Notes December, Polycystic dysplastic kidney (ICD-10 - Q61.3) December, CKD (chronic kidney disease) stage 2, GFR 60-89 ml/min (ICD-10 - N18.2) December, Factor V Leiden (ICD-10 - D68.51) [facility] Other 02-09-2021 Evaluation note* Encounter Date Diagnosis Assessment Notes Treatment Notes Treatment Clinical Notes Sep, Polycystic dysplastic kidney (ICD-10 - Q61.3) [facility] Other Evaluation noteN[employer] Other Evaluation noteNo InformationNort Bridge Software LLC Other Evaluation note* Diagnosis Onset Date Resolution Status 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 CKD stage G4/A3, GFR 15-29 a nd albumin creatinine ratio >300 mg/g acute Factor V Leiden acute [id number] acute [facility] Work Phone: Evaluation note* Diagnosis Onset Date Resolution Status 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 CKD stage G4/A3, GFR 15-29 a nd albumin creatinine ratio >300 mg/g acute Factor V Leiden acute [id number] acute Polycystic kidney disease no neactive 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 CKD (chronic kidney disease) stage 4, GFR 15-29 ml/min acute CKD stage G4/A3, GFR 15-29 a nd albumin creatinine ratio >300 mg/g acute Factor V Leiden acute [id number] acute Polycystic dysplastic kidney acute [facility] Work Phone: Evaluation note* Diagnosis Onset Date Resolution Status Admit Date 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 Novem rika 2023 3:50pm CKD (chronic kidney disease) stage 4, GFR 15-29 ml/min acute Novemb er 2023 3:50pm Factor V Leiden acute July 10, 2024 3:50pm Hypertensive chronic kidney disease with stage 1 through stage 4 chronic ki acute June 3:50pm [facility] Work Phone: History general Narrative - [employer] Other History general Narrative - Reported* Type Description Date Medical History PCOS Medical History previous blood clot in leg X 2 Medical History CAPILLARY HEMANGIOMA Medical History FACTOR V LEIDEN MUTATION Surgical History WISDOM TEETH X4 Hospitalization History CHILD X 2 Hospitalization History BLOOD CLOT [facility] Other [facility] general Narrative - Reported* Type Description Date Medical History PCOS Medical History previous blood clot in leg X 2 Medical History CAPILLARY HEMANGIOMA Medical History FACTOR V LEIDEN MUTATION Surgical History WISDOM TEETH X4 Surgical History EVLT ON RIGHT LEG Hospitalization History CHILD X 2 Hospitalization History BLOOD CLOT [facility] Other Summary Purpose Family History Relationship Condition [...] creatinine ratio >300 mg/g Factor V Leiden [id number] Chief Complaint RENAL 3 MONTH F/U Reason for Visit ADPKD (autosomal dom inant polycystic kidney disease) CKD stage G4/A3, GFR 15-29 and albumin creatinine ratio >300 mg/g Factor V Leiden [id number] Chief Complaint RENAL 3 MONTH F/U RENAL 3 MONTH F/U Reason for Visit ADPKD (autosomal dom inant polycystic kidney disease) CKD stage G4/A3, GFR 15-29 and albumin creatinine ratio >300 mg/g Factor V Leiden [id number] Polycystic kidney disease ADPKD (autosomal dominant polycystic kidney disease) CKD (chronic kidney disease) stage 4, GFR 15-29 ml/min CKD stage G4/A3, GFR 15-29 and albumin creatinine ratio >300 mg/g Factor V Leiden [id number] Polycystic dysplastic kidney Chief Complaint Admit Date [...] 4 chronic ki July 10, 2024 3:50pm Chief Complaint Admit Date RENAL 3 MONTH F/U July 10, 2024 3:50pm RENAL 3 MONTH F/U October 02, 2024 3:29pm Reason for Visit Admit Date ADPKD (autosomal dominant polycystic 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) July 10, 2024 3:50pm CKD (chronic kidney disease) stage 4, GF R 15-29 ml/min July 10, 2024 3:50pm Factor V Leiden July 10, 2024 3:50pm Hypertensive chronic kidney disease with stage 1 through stage 4 chronic ki July 10, 2024 3:50pm ADPKD (autosomal dominant polycystic 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) October 02, 2024 3:29pm CKD (chronic kidney disease) stage 4, GF R 15-29 ml/min October 02, 2024 3:29pm Factor V Leiden October 02, 2024 3:29pm Hypertensive chronic kidney disease with stage 1 through stage 4 chronic ki October 02, 2024 3:29pm Additional Source Comments INFORMATION SOURCE (unrecogn ized section and content) DATE CREATED AUTHOR 09/06/2019 [facility] DATE CREATED AUTHOR AUTHOR'S ORGANIZ ATION 12/17/2022 [...] July 10, 2024 End: July 10, 2024 Team Status: Inactive Member Role Status Sheridan James MD Primary Care Provider Active Start: October 02, 2024 End: October 02, 2024 Maeve Moreno MD Attending Provider Active Star t: October 02, 2024 End: October 02, 2024 Goals (unrecognized section and content) Goals [...] BE BASED ON THE PRIMARY CLINICAL RECORDS. [employer] provides no warranty or guarantee of the accuracy or completeness of information in this document.
== END 2024-10-13 16:01 | disposition home or self-care (01) ==
LOC: LAB 16:01
PROVIDERS: PCP Family Medicine; Visit Provider Internal Medicine Nephrology
DX: N18.4 Chronic kidney disease, stage 4 (severe) (principal)
CPT/HCPCS: 36415; 80048

== ENCOUNTER 2025-01-06 07:23 | Outpatient (OUT) | payer OTHER, SELFPAY ==
--- OUTSIDE RECORDS SUMMARY | 2025-01-06 07:27 | XMS_ITS | CCD ---
Author Organization [facility] CliniSyct Care Team Providers Care Crystal Machining Coordinator Name Role Phone Maeve Moreno Unavailable DR MAEVE MORENO Admitting Unavailable DR MAEVE MORENO Consulting Unavailable DR MAREN GONZALEZ Primary Care Unavailable TIFFANIE, DR MCFARLANE Attending Unavailable TIFFANIE, DR MCFARLANE Consulting Unavailable TIFFANIE, DR MCFARLANE Attending Unavailable TIFFANIE, DR MCFARLANE Admitting Unavailable ANGEL .DR ENGEL Primary Care Unavailable TIFFANIE, DR MCFARLANE Consulting Unavailable DR AMEVE MORENO Attending Unavailable ANGEL .DR ENGEL Primary [...] Sulfonamides (Antibiotic) Propensity to adverse reactions rash RPO Other Medications Current Medications Medication Drug Class(es) [...] She was informed that they may need PRETZEL TWISTER in near future. Will refer to transplant [...] 12-15-2022 PTH, Intact 65 pg/mL Normal 15-65 [facility] Comment on above: Performed By: #### L IPID, CMP, TSH, T7 #### [facility] [address] [address] [address] Jessica Mosqueda HEMOGRAM AND PLATELon 2022 Hematocrit (Bld) [Volume fraction] 41.0 % Normal 36.0-48.0 [facility] Comment on above: Performed By: #### H H #### [facility] [address] [place] [address] Dr. Jessica Mosqueda Hemoglobin (Bld) [Mass/Vol] 13.0 g/dL Normal 12.0-16.0 [facility] Comment on above: Performed By: #### H H #### [facility] [address] [place] [address] Dr. Jessica Mosqueda MCH (RBC) [Entitic mass] 28.6 pg Normal 26.7-34.0 [facility] Comment on above: Performed By: #### H H #### [facility] [address] [place] [address] Dr. Jessica Mosqueda MCHC (RBC) [Mass/Vol] 31.7 g/dL Normal 29.9-35.2 [facility] Comment on above: Performed By: #### H H #### [facility] [address] [place] [address] Dr. Jessica Mosqueda MCV (RBC) [Entitic vol] 90.3 fL Normal 81.0-99.0 [facility] Comment on above: Performed By: #### H H #### [facility] [address] [place] [address] Dr. Jessica Mosqueda PLT 133 103/ul Critically low 150-450 [facility] Comment on above: Performed By: #### H H #### [facility] [address] [address] [address] Jessica Mosqueda RBC 4.54 106/ul Normal 4.20-5.40 [facility] Comment on above: Performed By: #### H H #### [facility] [address] [place] [address] Dr. Jessica Mosqueda WBC 9.0 103/ul Normal 4.0-11.0 [facility] Comment on above: Performed By: #### H H #### [facility] [address] [place] [address] Dr. Jessica Mosqueda PHOSPHORUSon 12-13-2022 Phosphate [Mass/Vol] 4.3 mg/dL Normal 2.6-4.7 [facility] Comment on above: Performed By: #### P THINT #### [facility] [address] [place] [address] Dr. Jessica Mosqueda PROF 14(COMP METB)on 023 Albumin [Mass/Vol] 3.8 g/dL Normal 3.4-5.0 [facility] Comment on above: Performed By: #### P THINT #### [facility] [address] [place] [address] Dr. Jessica Mosqueda Albumin/Globulin [Mass ratio] 1.1 {ratio} Normal [facility] Comment on above: Performed By: #### P THINT #### [facility] [address] [place] [address] Dr. Jessica Mosqueda ALP [Catalytic activity/Vol] 36 U/L Critically low 46-116 [facility] Comment on above: Performed By: #### P THINT #### [facility] [address] [place] [address] Dr. Jessica Mosqueda ALT [Catalytic activity/Vol] 14 U/L Normal 14-59 [facility] Comment on above: Performed By: #### P THINT #### [facility] [address] [place] [address] Dr. Jessica Mosqueda Anion gap [Moles/Vol] 11.9 mmol/L Normal [facility] Comment on above: Performed By: #### P THINT #### [facility] [address] [address] [address] Jessica Mosqueda AST [Catalytic activity/Vol] 13 U/L Critically low 15-37 [facility] Comment on above: Performed By: #### P THINT #### [facility] [address] [address] [address] Jessica Mosqueda Bilirubin [Mass/Vol] 0.3 mg/dL Normal 0.2-1.0 [facility] Comment on above: Performed By: #### P THINT #### [facility] [address] [address] [address] Jessica Mosqueda Calcium [Mass/Vol] 9.0 mg/dL Normal 8.5-10.1 [facility] Comment on above: Performed By: #### P THINT #### [facility] [address] [address] [address] Jessica Mosqueda Chloride [Moles/Vol] 107 mmol/L Normal 98-107 [facility] Comment on above: Performed By: #### P THINT #### [facility] [address] [address] [address] Jessica Mosqueda CO2 [Moles/Vol] 28.1 mmol/L Normal 21.0-32.0 [facility] Comment on above: Performed By: #### P THINT #### [facility] [address] [address] [address] Jessica Mosqueda Creatinine [Mass/Vol] 2.10 mg/dL Critically high 0.55-1.02 [facility] Comment on above: Performed By: #### P THINT #### [facility] [address] [address] [address] Jessica Mosqueda EGFR-AF WELSH 31 mL/min/1.73m2 Critically low >=60 [facility] Comment on above: Performed By: #### P THINT #### [facility] [address] [address] [address] Jessica Mosqueda EGFR-NON AF WELSH 26 mL/min/1.73m2 Critically low >=60 [facility] Comment on above: Performed By: #### P THINT #### [facility] [address] [address] [address] Jessica Mosqueda Globulin (S) [Mass/Vol] 3.6 g/dL Normal [facility] Comment on above: Performed By: #### P THINT #### [facility] [address] [address] [address] Jessica Mosqueda Glucose [Mass/Vol] 82 mg/dL Normal 74-106 [facility] [place] Comment on above: Performed By: #### P THINT #### [facility] [address] [address] [address] Jessica Mosqueda Potassium [Moles/Vol] 4.0 mmol/L Normal 3.5-5.1 [facility] Comment on above: Performed By: #### P THINT #### [facility] [address] [address] [address] Jessica Mosqueda Protein [Mass/Vol] 7.4 g/dL Normal 6.4-8.2 [facility] Comment on above: Performed By: #### P THINT #### [facility] [address] [address] [address] Jessica Mosqueda Sodium [Moles/Vol] 143 mmol/L Normal 136-145 [facility] Comment on above: Performed By: #### P THINT #### [facility] [address] [address] [address] Jessica Mosqueda Urea nitrogen [Mass/Vol] 23.0 mg/dL Critically high 7.0-18.0 [facility] Comment on above: Performed By: #### P THINT #### [facility] [address] [address] [address] Jessica Mosqueda Urea nitrogen/Creatinine [Mass ratio] 11.0 mg/mg Normal [facility] Comment on above: Performed By: #### P THINT #### [facility] [address] [address] [address] Jessica Mosqueda MG MAMM SCREEN 3D MATILDA CADon 11-14-2022 MG MAMM SCREEN 3D MATILDA CAD Patient: ISABEL RIVERA Exam Date: 11/14/2022 : 1980 Gender:F Ordering : DR MAREN JAMES . Admission #: [id number] Family : Order #: [id number] CLICK HERE TO VIEW EXAM RADIOLOGY REPORT [...] unknown cancer at age 51. LOCATION: [facility] BREAST COMPOSITION: Extremely dense, which lowers the [...] M.D. on 11/15/2022 at 07:51 Normal [facility] INSULINon 11-11-2022 Insulin 7.2 uIU/mL Normal 2.6-24.9 [facility] Comment on above: Performed By: #### I NSULIN #### [facility] [address] [address] [address] Jessica Mosqueda CBC AUTO DIFFon 11-10-2022 BASO # 0.0 103/ul Normal 0.0-0.1 [facility] Comment on above: Performed By: #### L IPID, CMP, TSH, T7 #### [facility] [address] [address] [address] Jessica Mosqueda Basophils/100 WBC (Bld) 0.5 % Normal 0.2-2.0 [facility] Comment on above: Performed By: #### L IPID, CMP, TSH, T7 #### [facility] [address] [address] [address] Jessica Mosqueda EO # 0.3 103/ul Normal 0.0-0.7 [facility] Comment on above: Performed By: #### L IPID, CMP, TSH, T7 #### [facility] [address] [address] [address] Jessica Mosqueda Eosinophils/100 WBC (Bld) 3.6 % Normal 0.9-7.0 [facility] Comment on above: Performed By: #### L IPID, CMP, TSH, T7 #### [facility] [address] [place] [address] Dr. Jessica Mosqueda Erythrocyte distribution width (RBC) [Ratio] 13.2 % Normal 11.0-15.0 [facility] Comment on above: Performed By: #### L IPID, CMP, TSH, T7 #### [facility] [address] [place] [address] Dr. Jessica Mosqueda Hematocrit (Bld) [Volume fraction] 41.9 % Normal 36.0-48.0 [facility] Comment on above: Performed By: #### L IPID, CMP, TSH, T7 #### [facility] [address] [place] [address] Dr. Jessica Mosqueda Hemoglobin (Bld) [Mass/Vol] 13.3 g/dL Normal 12.0-16.0 [facility] Comment on above: Performed By: #### L IPID, CMP, TSH, T7 #### [facility] [address] [place] [address] Dr. Jessica Mosqueda IG # 0.02 10e3/ul Normal 0.00-0.03 [facility] Comment on above: Performed By: #### L IPID, CMP, TSH, T7 #### [facility] [address] [place] [address] Dr. Jessica Mosqueda IG % 0.3 % Normal 0.0-0.5 [facility] Comment on above: Performed By: #### L IPID, CMP, TSH, T7 #### [facility] [address] [place] [address] Dr. Jessica Mosqueda LYMPH # 2.2 103/ul Normal 1.2-3.8 [facility] Comment on above: Performed By: #### L IPID, CMP, TSH, T7 #### [facility] [address] [place] [address] Dr. Jessica Mosqueda Lymphocytes/100 WBC (Bld) 29.6 % Normal 20.5-60.0 [facility] Comment on above: Performed By: #### L IPID, CMP, TSH, T7 #### [facility] [address] [place] [address] Dr. Jessica Mosqueda MANUAL DIFF REQ NO Normal [facility] Comment on above: Performed By: #### L IPID, CMP, TSH, T7 #### [facility] [address] [place] [address] Dr. Jessica Mosqueda MCH (RBC) [Entitic mass] 28.9 pg Normal 26.7-34.0 [facility] Comment on above: Performed By: #### L IPID, CMP, TSH, T7 #### [facility] [address] [place] [address] Dr. Jessica Mosqueda MCHC (RBC) [Mass/Vol] 31.7 g/dL Normal 29.9-35.2 [facility] Comment on above: Performed By: #### L IPID, CMP, TSH, T7 #### [facility] [address] [place] [address] Dr. Jessica Mosqueda MCV (RBC) [Entitic vol] 91.1 fL Normal 81.0-99.0 [facility] Comment on above: Performed By: #### L IPID, CMP, TSH, T7 #### [facility] [address] [place] [address] Dr. Jessica Mosqueda MONO # 0.5 103/ul Normal 0.3-0.8 [facility] Comment on above: Performed By: #### L IPID, CMP, TSH, T7 #### [facility] [address] [place] [address] Dr. Jessica Mosqueda Monocytes/100 WBC (Bld) 6.1 % Normal 1.7-12.0 [facility] Comment on above: Performed By: #### L IPID, CMP, TSH, T7 #### [facility] [address] [place] [address] Dr. Jessica Mosqueda NEUT # 4.4 103/ul Normal 1.4-6.5 [facility] Comment on above: Performed By: #### L IPID, CMP, TSH, T7 #### [facility] [address] [address] [address] Jessica Mosqueda Neutrophils/100 WBC (Bld) 59.9 % Normal 43.0-75.0 [facility] Comment on above: Performed By: #### L IPID, CMP, TSH, T7 #### [facility] [address] [address] [address] Jessica Mosqueda Platelet mean volume (Bld) [Entitic vol] 12.5 fL Normal 9.5-13.5 [facility] Comment on above: Performed By: #### L IPID, CMP, TSH, T7 #### [facility] [address] [place] [address] Dr. Jessica Mosqueda PLT 157 103/ul Normal 150-450 [facility] Comment on above: Performed By: #### L IPID, CMP, TSH, T7 #### [facility] [address] [place] [address] Dr. Jessica Mosqueda RBC 4.60 106/ul Normal 4.20-5.40 [facility] Comment on above: Performed By: #### L IPID, CMP, TSH, T7 #### [facility] [address] [address] [address] Jessica Mosqueda WBC 7.3 103/ul Normal 4.0-11.0 [facility] Comment on above: Performed By: #### L IPID, CMP, TSH, T7 #### [facility] [address] [place] [address] Dr. Jessica Mosqueda FREE THYROXINE INDEX T7on FTI 2.51 Normal 1.30-4.50 [facility] Comment on above: Performed By: #### L IPID, CMP, TSH, T7 #### [facility] [address] [place] [address] Dr. Jessica Mosqueda T3U 38.0 % Normal 30.0-39.0 [facility] Comment on above: Performed By: #### L IPID, CMP, TSH, T7 #### [facility] [address] [address] [address] Jessica Mosqueda T4 [Mass/Vol] 6.60 ug/dL Normal 4.80-13.90 [facility] Comment on above: Performed By: #### L IPID, CMP, TSH, T7 #### [facility] [address] [address] [address] Jessica Mosqueda GLYCOHEMOGLOBIN A1Con 2022 ADA RECOMMENDATION SEE BELOW Normal [facility] Comment on above: Result Comment: ADA RECOMMENDED LIMIT 4.0 - 6.0 ADA THERAPEUTIC TARGET < 7.0 ACTION SUGGESTED > 7.0 Performed By: #### P THINT #### [facility] [address] [address] [address] Jessica Mosqueda Glucose [Mass/Vol] 111 mg/dL Normal [facility] Comment on above: Performed By: #### P THINT #### [facility] [address] [address] [address] Jessica Mosqueda HbA1c (Bld) [Mass fraction] 5.5 % Normal 4.5-6.2 [facility] Comment on above: Performed By: #### P THINT #### [facility] [address] [address] [address] Jessica Mosqueda IRONon 11-10-2022 Iron [Mass/Vol] 58.0 ug/dL Normal 50.0-170.0 [facility] Comment on above: Performed By: #### P THINT #### [facility] [address] [address] [address] Jessica Mosqueda LIPID PROFILEon 11-10-2022 CHOL-HDL RATIO NORM SEE BELOW Normal [facility] Comment on above: Result Comment: 3.3 - 4.4 LOW RISK 4.4 - 7.1 AVERAGE RISK 7.1 - 11.0 MODERATE RISK >11.0 HIGH RISK Performed By: #### L IPID, CMP, TSH, T7 #### [facility] [address] [address] [address] Jessica Mosqueda Cholesterol [Mass/Vol] 205 mg/dL Critically high <=200 [facility] Comment on above: Performed By: #### L IPID, CMP, TSH, T7 #### [facility] [address] [address] [address] Jessica Mosqueda Cholesterol in HDL [Mass/Vol] 60 mg/dL Normal 40-60 [facility] Comment on above: Performed By: #### L IPID, CMP, TSH, T7 #### [facility] [address] [address] [address] Jessica Mosqueda Cholesterol in LDL [Mass/Vol] 127.4 mg/dL Normal [facility] Comment on above: Performed By: #### L IPID, CMP, TSH, T7 #### [facility] [address] [place] [address] Dr. Jessica Mosqueda Cholesterol.total/Cho lesterol in HDL [Mass ratio] 3.4 {ratio} Normal [facility] Comment on above: Performed By: #### L IPID, CMP, TSH, T7 #### [facility] [address] [address] [address] Jessica Mosqueda HDL NORMAL > or = 60 mg/dl - LOW CARDIOVASCULAR RISK <40 mg/dl - HIGH CARDIOVASCULAR RISK Normal [facility] Comment on above: Performed By: #### L IPID, CMP, TSH, T7 #### [facility] [address] [address] [address] Jessica Mosqueda LDL CALC NORMAL SEE BELOW Normal [facility] Comment on above: Result Comment: <100 mg/dl OPTIMAL 100 - 129 mg/dl NEAR OR ABOVE OPTIMAL 130 - 159 mg/dl BORDERLINE HIGH 160 - 189 mg/dl HIGH >190 mg/dl VERY HIGH Performed By: #### L IPID, CMP, TSH, T7 #### [facility] [address] [address] [address] Jessica Mosqueda Triglyceride [Mass/Vol] 88 mg/dL Normal <=150 [facility] Comment on above: Performed By: #### L IPID, CMP, TSH, T7 #### [facility] [address] [address] [address] Jessica Mosqueda VLDL CALC 17.6 mg/dL Normal [facility] Comment on above: Performed By: #### L IPID, CMP, TSH, T7 #### [facility] [address] [address] [address] Jessica Mosqueda PROF 14(COMP METB)on 023 Albumin [Mass/Vol] 3.8 g/dL Normal 3.4-5.0 [facility] Comment on above: Performed By: #### L IPID, CMP, TSH, T7 #### [facility] [address] [address] [address] Jessica Mosqueda Albumin/Globulin [Mass ratio] 1.1 {ratio} Normal [facility] Comment on above: Performed By: #### L IPID, CMP, TSH, T7 #### [facility] [address] [place] [address] Dr. Jessica Mosqueda ALP [Catalytic activity/Vol] 37 U/L Critically low 46-116 [facility] Comment on above: Performed By: #### L IPID, CMP, TSH, T7 #### [facility] [address] [place] [address] Dr. Jessica Mosqueda ALT [Catalytic activity/Vol] 16 U/L Normal 14-59 [facility] Comment on above: Performed By: #### L IPID, CMP, TSH, T7 #### [facility] [address] [address] [address] Jessica Mosqueda Anion gap [Moles/Vol] 13.7 mmol/L Normal [facility] Comment on above: Performed By: #### L IPID, CMP, TSH, T7 #### [facility] [address] [place] [address] Dr. Jessica Mosqueda AST [Catalytic activity/Vol] 14 U/L Critically low 15-37 [facility] Comment on above: Performed By: #### L IPID, CMP, TSH, T7 #### [facility] [address] [place] [address] Dr. Jessica Mosqueda Bilirubin [Mass/Vol] 0.4 mg/dL Normal 0.2-1.0 [facility] Comment on above: Performed By: #### L IPID, CMP, TSH, T7 #### [facility] [address] [address] [address] Jessica Mosqueda Calcium [Mass/Vol] 9.6 mg/dL Normal 8.5-10.1 [facility] Comment on above: Performed By: #### L IPID, CMP, TSH, T7 #### [facility] [address] [address] [address] Jessica Mosqueda Chloride [Moles/Vol] 107 mmol/L Normal 98-107 [facility] Comment on above: Performed By: #### L IPID, CMP, TSH, T7 #### [facility] [address] [place] [address] Dr. Jessica Mosqueda CO2 [Moles/Vol] 27.5 mmol/L Normal 21.0-32.0 [facility] Comment on above: Performed By: #### L IPID, CMP, TSH, T7 #### [facility] [address] [address] [address] Jessica Mosqueda Creatinine [Mass/Vol] 1.74 mg/dL Critically high 0.55-1.02 [facility] Comment on above: Performed By: #### L IPID, CMP, TSH, T7 #### [facility] [address] [place] [address] Dr. Jessica Mosqueda EGFR-AF WELSH 39 mL/min/1.73m2 Critically low >=60 [facility] Comment on above: Performed By: #### L IPID, CMP, TSH, T7 #### [facility] [address] [place] [address] Dr. Jessica Mosqueda EGFR-NON AF WELSH 32 mL/min/1.73m2 Critically low >=60 [facility] Comment on above: Performed By: #### L IPID, CMP, TSH, T7 #### [facility] [address] [place] [address] Dr. Jessica Mosqueda Globulin (S) [Mass/Vol] 3.4 g/dL Normal [facility] Comment on above: Performed By: #### L IPID, CMP, TSH, T7 #### [facility] [address] [address] [address] Jessica Mosqueda Glucose [Mass/Vol] 95 mg/dL Normal 74-106 [facility] Comment on above: Performed By: #### L IPID, CMP, TSH, T7 #### [facility] [address] [place] [address] Dr. Jessica Mosqueda Potassium [Moles/Vol] 4.2 mmol/L Normal 3.5-5.1 [facility] Comment on above: Performed By: #### L IPID, CMP, TSH, T7 #### [facility] [address] [place] [address] Dr. Jessica Mosqueda Protein [Mass/Vol] 7.2 g/dL Normal 6.4-8.2 [facility] Comment on above: Performed By: #### L IPID, CMP, TSH, T7 #### [facility] [address] [place] [address] Dr. Jessica Mosqueda Sodium [Moles/Vol] 144 mmol/L Normal 136-145 [facility] Comment on above: Performed By: #### L IPID, CMP, TSH, T7 #### [facility] [address] [place] [address] Dr. Jessica Mosqueda Urea nitrogen [Mass/Vol] 25.0 mg/dL Critically high 7.0-18.0 [facility] Comment on above: Performed By: #### L IPID, CMP, TSH, T7 #### [facility] [address] [place] [address] Dr. Jessica Mosqueda Urea nitrogen/Creatinine [Mass ratio] 14.4 mg/mg Normal [facility] Comment on above: Performed By: #### L IPID, CMP, TSH, T7 #### [facility] [address] [place] [address] Dr. Jessica Mosqueda TSHon 11-10-2022 TSH 1.244 uIU/mL Normal 0.358-3.740 [facility] Comment on above: Performed By: #### L IPID, CMP, TSH, T7 #### [facility] [address] [place] [address] Dr. Jessica Mosqueda PTH INTACTon 09-28-2022 PTH, Intact 43 pg/mL Normal 15-65 [facility] Comment on above: Performed By: #### L IPID, CMP, TSH, T7 #### [facility] [address] [place] [address] Dr. Jessica Mosqueda HEMOGRAM AND PLATELon 2022 Hematocrit (Bld) [Volume fraction] 39.0 % Normal 36.0-48.0 [facility] Comment on above: Performed By: #### H H #### [facility] [address] [place] [address] Dr. Jessica Mosqueda Hemoglobin (Bld) [Mass/Vol] 12.3 g/dL Normal 12.0-16.0 [facility] Comment on above: Performed By: #### H H #### [facility] [address] [place] [address] Dr. Jessica Mosqueda MCH (RBC) [Entitic mass] 29.1 pg Normal 26.7-34.0 [facility] Comment on above: Performed By: #### H H #### [facility] [facility] [address] [place] [address] Dr. Jessica Mosuqeda MCHC (RBC) [Mass/Vol] 31.5 g/dL Normal 29.9-35.2 [facility] Comment on above: Performed By: #### H H #### [facility] [address] [place] [address] Dr. Jessica Mosqueda MCV (RBC) [Entitic vol] 92.4 fL Normal 81.0-99.0 [facility] Comment on above: Performed By: #### H H #### [facility] [address] [place] [address] Dr. Jessica Mosqueda PLT 131 103/ul Critically low 150-450 [facility] Comment on above: Performed By: #### H H #### [facility] [address] [place] [address] Dr. Jessica Mosqueda RBC 4.22 106/ul Normal 4.20-5.40 [facility] Comment on above: Performed By: #### H H #### [facility] [address] [place] [address] Dr. Jessica Mosqueda WBC 8.6 103/ul Normal 4.0-11.0 [facility] Comment on above: Performed By: #### H H #### [facility] [address] [place] [address] Dr. Jessica Mosqueda PHOSPHORUSon 09-26-2022 Phosphate [Mass/Vol] 4.3 mg/dL Normal 2.6-4.7 [facility] Comment on above: Performed By: #### P THINT #### [facility] [address] [place] [address] Dr. Jessica Mosqueda PROF 14(COMP METB)on 023 Albumin [Mass/Vol] 3.9 g/dL Normal 3.4-5.0 [facility] Comment on above: Performed By: #### P THINT #### [facility] [address] [place] [address] Dr. Jessica Mosqueda Albumin/Globulin [Mass ratio] 1.1 {ratio} Normal [facility] Comment on above: Performed By: #### P THINT #### [facility] [address] [place] [address] Dr. Jessica Mosqueda ALP [Catalytic activity/Vol] 34 U/L Critically low 46-116 [facility] Comment on above: Performed By: #### P THINT #### [facility] [address] [place] [address] Dr. Jessica Mosqueda ALT [Catalytic activity/Vol] 13 U/L Critically low 14-59 [facility] Comment on above: Performed By: #### P THINT #### [facility] [address] [place] [address] Dr. Jessica Mosqueda Anion gap [Moles/Vol] 13.6 mmol/L Normal [facility] Comment on above: Performed By: #### P THINT #### [facility] [address] [place] [address] Dr. Jessica Mosqueda AST [Catalytic activity/Vol] 9 U/L Critically low 15-37 [facility] Comment on above: Performed By: #### P THINT #### [facility] [address] [address] [address] Jessica Mosqueda Bilirubin [Mass/Vol] 0.3 mg/dL Normal 0.2-1.0 [facility] Comment on above: Performed By: #### P THINT #### [facility] [address] [address] [address] Jessica Mosqueda Calcium [Mass/Vol] 9.5 mg/dL Normal 8.5-10.1 [facility] Comment on above: Performed By: #### P THINT #### [facility] [address] [address] [address] Jessica Mosqueda Chloride [Moles/Vol] 105 mmol/L Normal 98-107 [facility] Comment on above: Performed By: #### P THINT #### [facility] [address] [address] [address] Jessica Mosqueda CO2 [Moles/Vol] 24.7 mmol/L Normal 21.0-32.0 [facility] Comment on above: Performed By: #### P THINT #### [facility] [address] [address] [address] Jessica Mosqueda Creatinine [Mass/Vol] 1.67 mg/dL Critically high 0.55-1.02 [facility] Comment on above: Performed By: #### P THINT #### [facility] [address] [address] [address] Jessica Mosqueda EGFR-AF WELSH 41 mL/min/1.73m2 Critically low >=60 [facility] Comment on above: Performed By: #### P THINT #### [facility] [address] [address] [address] Jessica Mosqueda EGFR-NON AF WELSH 34 mL/min/1.73m2 Critically low >=60 [facility] Comment on above: Performed By: #### P THINT #### [facility] [address] [address] [address] Jessica Mosqueda Globulin (S) [Mass/Vol] 3.5 g/dL Normal [facility] Comment on above: Performed By: #### P THINT #### [facility] [address] [address] [address] Jessica Mosqueda Glucose [Mass/Vol] 94 mg/dL Normal 74-106 [facility] Comment on above: Performed By: #### P THINT #### [facility] [address] [address] [address] Jessica Mosqueda Potassium [Moles/Vol] 4.4 mmol/L Normal 3.5-5.1 [facility] Comment on above: Performed By: #### P THINT #### [facility] [address] [address] [address] Jessica Mosqueda Protein [Mass/Vol] 7.4 g/dL Normal 6.4-8.2 [facility] Comment on above: Performed By: #### P THINT #### [facility] [address] [address] [address] Jsesica Mosqueda Sodium [Moles/Vol] 139 mmol/L Normal 136-145 [facility] Comment on above: Performed By: #### P THINT #### [facility] [address] [address] [address] Jessica Mosqueda Urea nitrogen [Mass/Vol] 29.0 mg/dL Critically high 7.0-18.0 [facility] Comment on above: Performed By: #### P THINT #### [facility] [address] [address] [address] Jessica Mosqueda Urea nitrogen/Creatinine [Mass ratio] 17.4 mg/mg Normal [facility] Comment on above: Performed By: #### P THINT #### [facility] [address] [address] [address] Jessica Mosqueda PTH INTACTon 06-30-2022 PTH, Intact 64 pg/mL Normal 15-65 [facility] Comment on above: Performed By: #### P THINT #### [facility] [address] [address] [address] Jessica Mosqueda HEMOGRAM AND PLATELon 2021 Hematocrit (Bld) [Volume fraction] 37.5 % Normal 36.0-48.0 [facility] Comment on above: Performed By: #### P THINT #### [facility] [address] [place] [address] Dr. Jessica Mosqueda Hemoglobin (Bld) [Mass/Vol] 12.1 g/dL Normal 12.0-16.0 [facility] Comment on above: Performed By: #### P THINT #### [facility] [address] [place] [address] Dr. Jessica Mosqueda MCH (RBC) [Entitic mass] 29.0 pg Normal 26.7-34.0 [facility] Comment on above: Performed By: #### P THINT #### [facility] [address] [place] [address] Dr. Jessica Mosqueda MCHC (RBC) [Mass/Vol] 32.3 g/dL Normal 29.9-35.2 [facility] Comment on above: Performed By: #### P THINT #### [facility] [address] [place] [address] Dr. Jessica Mosqueda MCV (RBC) [Entitic vol] 89.9 fL Normal 81.0-99.0 [facility] Comment on above: Performed By: #### P THINT #### [facility] [address] [place] [address] Dr. Jessica Mosqueda PLT 170 103/ul Normal 150-450 [facility] Comment on above: Performed By: #### P THINT #### [facility] [address] [place] [address] Dr. Jessica Mosqueda RBC 4.17 106/ul Critically low 4.20-5.40 [facility] Comment on above: Performed By: #### P THINT #### [facility] [address] [place] [address] Dr. Jessica Mosqueda WBC 9.4 103/ul Normal 4.0-11.0 [facility] Comment on above: Performed By: #### P THINT #### [facility] [address] [place] [address] Dr. Jessica Mosqueda PHOSPHORUSon 06-29-2022 Phosphate [Mass/Vol] 3.8 mg/dL Normal 2.6-4.7 [facility] Comment on above: Performed By: #### L IPID, CMP, TSH, T7 #### [facility] [address] [address] [address] Jessica Mosqueda PROF 14(COMP METB)on 022 Albumin [Mass/Vol] 4.0 g/dL Normal 3.4-5.0 [facility] Comment on above: Performed By: #### L IPID, CMP, TSH, T7 #### [facility] [address] [address] [address] Jesscia Mosqueda Albumin/Globulin [Mass ratio] 1.2 {ratio} Normal [facility] Comment on above: Performed By: #### L IPID, CMP, TSH, T7 #### [facility] [address] [address] [address] Jessica Mosqueda ALP [Catalytic activity/Vol] 38 U/L Critically low 46-116 [facility] Comment on above: Performed By: #### L IPID, CMP, TSH, T7 #### [facility] [address] [address] [address] Jessica Mosqueda ALT [Catalytic activity/Vol] 13 U/L Critically low 14-59 [facility] Comment on above: Performed By: #### L IPID, CMP, TSH, T7 #### [facility] [address] [address] [address] Jessica Mosqueda Anion gap [Moles/Vol] 13.1 mmol/L Normal [facility] Comment on above: Performed By: #### L IPID, CMP, TSH, T7 #### [facility] [address] [address] [address] Jessica Mosqueda AST [Catalytic activity/Vol] 14 U/L Critically low 15-37 [facility] Comment on above: Performed By: #### L IPID, CMP, TSH, T7 #### [facility] [address] [address] [address] Jessica Mosqueda Bilirubin [Mass/Vol] 0.4 mg/dL Normal 0.2-1.0 [facility] Comment on above: Performed By: #### L IPID, CMP, TSH, T7 #### [facility] [address] [address] [address] Jessica Mosqueda Calcium [Mass/Vol] 9.2 mg/dL Normal 8.5-10.1 [facility] Comment on above: Performed By: #### L IPID, CMP, TSH, T7 #### [facility] [address] [address] [address] Jessica Mosqueda Chloride [Moles/Vol] 104 mmol/L Normal 98-107 [facility] Comment on above: Performed By: #### L IPID, CMP, TSH, T7 #### [facility] [address] [place] [address] Dr. Jessica Mosqueda CO2 [Moles/Vol] 26.1 mmol/L Normal 21.0-32.0 [facility] Comment on above: Performed By: #### L IPID, CMP, TSH, T7 #### [facility] [address] [place] [address] Dr. Jessica Mosqueda Creatinine [Mass/Vol] 1.86 mg/dL Critically high 0.55-1.02 [facility] Comment on above: Performed By: #### L IPID, CMP, TSH, T7 #### [facility] [address] [place] [address] Dr. Jessica Mosqueda EGFR-AF WELSH 36 mL/min/1.73m2 Critically low >=60 [facility] Comment on above: Performed By: #### L IPID, CMP, TSH, T7 #### [facility] [address] [place] [address] Dr. Jessica Mosqueda EGFR-NON AF WELSH 30 mL/min/1.73m2 Critically low >=60 [facility] Comment on above: Performed By: #### L IPID, CMP, TSH, T7 #### [facility] [address] [address] [address] Jessica Mosqueda Globulin (S) [Mass/Vol] 3.4 g/dL Normal [facility] Comment on above: Performed By: #### L IPID, CMP, TSH, T7 #### [facility] [address] [address] [address] Jessica Mosqueda Glucose [Mass/Vol] 84 mg/dL Normal 74-106 [facility] Comment on above: Performed By: #### L IPID, CMP, TSH, T7 #### [facility] [address] [address] [address] Jessica Mosqueda Potassium [Moles/Vol] 4.2 mmol/L Normal 3.5-5.1 [facility] Comment on above: Performed By: #### L IPID, CMP, TSH, T7 #### [facility] [address] [address] [address] Jessica Mosqueda Protein [Mass/Vol] 7.4 g/dL Normal 6.4-8.2 [facility] Comment on above: Performed By: #### L IPID, CMP, TSH, T7 #### [facility] [address] [address] [address] Jessica Mosqueda Sodium [Moles/Vol] 139 mmol/L Normal 136-145 [facility] Comment on above: Performed By: #### L IPID, CMP, TSH, T7 #### [facility] [address] [address] [address] Jessica Mosqueda Urea nitrogen [Mass/Vol] 26.0 mg/dL Critically high 7.0-18.0 [facility] Comment on above: Performed By: #### L IPID, CMP, TSH, T7 #### [facility] [address] [place] [address] Dr. Jessica Mosqueda Urea nitrogen/Creatinine [Mass ratio] 14.0 mg/mg Normal [facility] Comment on above: Performed By: #### L IPID, CMP, TSH, T7 #### [facility] [address] [place] [address] Dr. Jessica Mosqueda UA RANDOMon 06-29-2022 Bilirubin Ql (U) Negative Normal NEGATIVE [facility] Comment on above: Performed By: #### L IPID, CMP, TSH, T7 #### [facility] [address] [address] [address] Jessica Mosqueda Clarity (U) CLEAR Normal CLEAR [facility] Comment on above: Performed By: #### L IPID, CMP, TSH, T7 #### [facility] [address] [place] [address] Dr. Jessica Mosqueda Color (U) LT. YELLOW Normal YELLOW [facility] Comment on above: Performed By: #### L IPID, CMP, TSH, T7 #### [facility] [address] [address] [address] Jessica Mosqueda Glucose Ql (U) Negative Normal NEGATIVE [facility] Comment on above: Performed By: #### L IPID, CMP, TSH, T7 #### [facility] [address] [place] [address] Dr. Jessica Mosqueda Hemoglobin Ql (U) Negative Normal NEGATIVE [facility] Comment on above: Performed By: #### L IPID, CMP, TSH, T7 #### [facility] [address] [place] [address] Dr. Jessica Mosqueda Ketones Ql (U) Negative Normal NEGATIVE [facility] Comment on above: Performed By: #### L IPID, CMP, TSH, T7 #### [facility] [address] [place] [address] Dr. Jessica Mosqueda LEUKOCYTES Negative Normal NEGATIVE [facility] Comment on above: Performed By: #### L IPID, CMP, TSH, T7 #### [facility] [address] [place] [address] Dr. Jessica Mosqueda Nitrite Ql (U) Negative Normal NEGATIVE [facility] Comment on above: Performed By: #### L IPID, CMP, TSH, T7 #### [facility] [address] [address] [address] Jessica Mosqueda pH (U) 6.0 [pH] Normal 5-9 [facility] Comment on above: Performed By: #### L IPID, CMP, TSH, T7 #### [facility] [address] [place] [address] Dr. Jessica Mosqueda SPEC GRAVITY <=1.005 Abnormal 1.005-<=1.025 [facility] Comment on above: Performed By: #### L IPID, CMP, TSH, T7 #### [facility] [address] [place] [address] Dr. Jessica Mosqueda UA PROTEIN Negative Normal NEGATIVE/ TRACE [facility] Comment on above: Performed By: #### L IPID, CMP, TSH, T7 #### [facility] [address] [place] [address] Dr. Jessica Mosqueda Urobilinogen Qn (U) 0.2 {Fran'U}/dL Normal 0.2 - 1. 0 [facility] Comment on above: Performed By: #### L IPID, CMP, TSH, T7 #### [facility] [address] [place] [address] Dr. Jessica Mosqueda PROF 14(COMP METB)on 022 Albumin [Mass/Vol] 3.9 g/dL Normal 3.4-5.0 [facility] Comment on above: Performed By: #### P THINT #### [facility] [address] [place] [address] Dr. Jessica Mosqueda Albumin/Globulin [Mass ratio] 1.1 {ratio} Normal [facility] Comment on above: Performed By: #### P THINT #### [facility] [address] [place] [address] Dr. Jessica Mosqueda ALP [Catalytic activity/Vol] 36 U/L Critically low 46-116 [facility] Comment on above: Performed By: #### P THINT #### [facility] [address] [place] [address] Dr. Jessica Mosqueda ALT [Catalytic activity/Vol] 17 U/L Normal 14-59 [facility] Comment on above: Performed By: #### P THINT #### [facility] [address] [place] [address] Dr. Jessica Mosqueda Anion gap [Moles/Vol] 13.9 mmol/L Normal [facility] Comment on above: Performed By: #### P THINT #### [facility] [address] [place] [address] Dr. Jessica Mosqueda AST [Catalytic activity/Vol] 11 U/L Critically low 15-37 [facility] Comment on above: Performed By: #### P THINT #### [facility] [address] [address] [address] Jessica Mosqueda Bilirubin [Mass/Vol] 0.3 mg/dL Normal 0.2-1.0 [facility] Comment on above: Performed By: #### P THINT #### [facility] [address] [address] [address] Jessica Mosqueda Calcium [Mass/Vol] 9.2 mg/dL Normal 8.5-10.1 [facility] Comment on above: Performed By: #### P THINT #### [facility] [address] [address] [address] Jessica Mosqueda Chloride [Moles/Vol] 105 mmol/L Normal 98-107 [facility] Comment on above: Performed By: #### P THINT #### [facility] [address] [address] [address] Jessica Mosqueda CO2 [Moles/Vol] 26.5 mmol/L Normal 21.0-32.0 [facility] Comment on above: Performed By: #### P THINT #### [facility] [address] [place] [address] Dr. Jessica Mosqueda Creatinine [Mass/Vol] 2.06 mg/dL Critically high 0.55-1.02 [facility] Comment on above: Performed By: #### P THINT #### [facility] [address] [place] [address] Dr. Jessica Mosqueda EGFR-AF WELSH 32 mL/min/1.73m2 Critically low >=60 [facility] Comment on above: Performed By: #### P THINT #### [facility] [address] [address] [address] Jessica Mosqueda EGFR-NON AF WELSH 27 mL/min/1.73m2 Critically low >=60 [facility] Comment on above: Performed By: #### P THINT #### [facility] [address] [address] [address] Jessica Mosqueda Globulin (S) [Mass/Vol] 3.5 g/dL Normal [facility] Comment on above: Performed By: #### P THINT #### [facility] [address] [address] [address] Jessica Mosqueda Glucose [Mass/Vol] 75 mg/dL Normal 74-106 [facility] Comment on above: Performed By: #### P THINT #### [facility] [address] [address] [address] Jessica Mosqueda Potassium [Moles/Vol] 4.4 mmol/L Normal 3.5-5.1 [facility] Comment on above: Performed By: #### P THINT #### [facility] [address] [place] [address] Dr. Jessica Mosqueda Protein [Mass/Vol] 7.4 g/dL Normal 6.4-8.2 [facility] Comment on above: Performed By: #### P THINT #### [facility] [address] [place] [address] Dr. Jessica Mosqueda Sodium [Moles/Vol] 141 mmol/L Normal 136-145 [facility] Comment on above: Performed By: #### P THINT #### [facility] [address] [place] [address] Dr. Jessica Mosqueda Urea nitrogen [Mass/Vol] 37.0 mg/dL Critically high 7.0-18.0 [facility] Comment on above: Performed By: #### P THINT #### [facility] [address] [place] [address] Dr. Jessica Mosqueda Urea nitrogen/Creatinine [Mass ratio] 18.0 mg/mg Normal [facility] Comment on above: Performed By: #### P THINT #### [facility] [address] [place] [address] Dr. Jessica Mosqueda PROF 14(COMP METB)on 022 Albumin [Mass/Vol] 3.9 g/dL Normal 3.4-5.0 [facility] Comment on above: Performed By: #### C MP #### [facility] [address] [place] [address] Dr. Jessica Mosqueda Albumin/Globulin [Mass ratio] 1.2 {ratio} Normal [facility] Comment on above: Performed By: #### C MP #### [facility] [address] [place] [address] Dr. Jessica Mosqueda ALP [Catalytic activity/Vol] 32 U/L Critically low 46-116 [facility] Comment on above: Performed By: #### C MP #### [facility] [address] [place] [address] Dr. Jessica Mosqueda ALT [Catalytic activity/Vol] 12 U/L Critically low 14-59 [facility] Comment on above: Performed By: #### C MP #### [facility] [address] [place] [address] Dr. Jessica Mosqueda Anion gap [Moles/Vol] 13.6 mmol/L Normal [facility] Comment on above: Performed By: #### C MP #### [facility] [address] [place] [address] Dr. Jessica Mosqueda AST [Catalytic activity/Vol] 15 U/L Normal 15-37 [facility] Comment on above: Performed By: #### C MP #### [facility] [address] [place] [address] Dr. Jessica Mosqueda Bilirubin [Mass/Vol] 0.2 mg/dL Normal 0.2-1.0 [facility] Comment on above: Performed By: #### C MP #### [facility] [address] [place] [address] Dr. Jessica Mosqueda Calcium [Mass/Vol] 9.2 mg/dL Normal 8.5-10.1 [facility] Comment on above: Performed By: #### C MP #### [facility] [address] [place] [address] Dr. Jessica Mosqueda Chloride [Moles/Vol] 105 mmol/L Normal 98-107 [facility] Comment on above: Performed By: #### C MP #### [facility] [address] [place] [address] Dr. Jessica Mosqueda CO2 [Moles/Vol] 26.0 mmol/L Normal 21.0-32.0 [facility] Comment on above: Performed By: #### C MP #### [facility] [address] [address] [address] Jessica Mosqueda Creatinine [Mass/Vol] 1.98 mg/dL Critically high 0.55-1.02 [facility] Comment on above: Performed By: #### C MP #### [facility] [address] [address] [address] Jessica Mosqueda EGFR-AF WELSH 34 mL/min/1.73m2 Critically low >=60 [facility] Comment on above: Performed By: #### C MP #### [facility] [address] [address] [address] Jessica Mosqueda EGFR-NON AF WELSH 28 mL/min/1.73m2 Critically low >=60 [facility] Comment on above: Performed By: #### C MP #### [facility] [address] [address] [address] Jessica Mosqueda Globulin (S) [Mass/Vol] 3.3 g/dL Normal [facility] Comment on above: Performed By: #### C MP #### [facility] [address] [address] [address] Jessica Mosqueda Glucose [Mass/Vol] 93 mg/dL Normal 74-106 [facility] Comment on above: Performed By: #### C MP #### [facility] [address] [address] [address] Jessica Mosqueda Potassium [Moles/Vol] 4.6 mmol/L Normal 3.5-5.1 [facility] Comment on above: Performed By: #### C MP #### [facility] [address] [address] [address] Jessica Mosqueda Protein [Mass/Vol] 7.2 g/dL Normal 6.4-8.2 [facility] Comment on above: Performed By: #### C MP #### [facility] [address] [address] [address] Jessica Mosqueda Sodium [Moles/Vol] 140 mmol/L Normal 136-145 [facility] Comment on above: Performed By: #### C MP #### [facility] [address] [place] [address] Dr. Jessica Mosqueda Urea nitrogen [Mass/Vol] 23.0 mg/dL Critically high 7.0-18.0 [facility] Comment on above: Performed By: #### C MP #### [facility] [address] [place] [address] Dr. Jessica Mosqueda Urea nitrogen/Creatinine [Mass ratio] 11.6 mg/mg Normal [facility] Comment on above: Performed By: #### C MP #### [facility] [address] [place] [address] Dr. Jessica Mosqueda PTH INTACTon 03-23-2022 PTH, Intact 71 pg/mL Critically high 15-65 [facility] [place] [facility] Comment on above: Performed By: #### P THINT #### [facility] [address] [place] [address] Dr. Jessica Mosqueda HEMOGRAM AND PLATELon 2021 Hematocrit (Bld) [Volume fraction] 37.8 % Normal 36.0-48.0 [facility] Comment on above: Performed By: #### H H #### [facility] [address] [place] [address] Dr. Jessica Mosqueda Hemoglobin (Bld) [Mass/Vol] 12.3 g/dL Normal 12.0-16.0 [facility] Comment on above: Performed By: #### H H #### [facility] [address] [place] [address] Dr. Jessica Mosqueda MCH (RBC) [Entitic mass] 29.6 pg Normal 26.7-34.0 [facility] Comment on above: Performed By: #### H H #### [facility] [address] [place] [address] Dr. Jessica Mosqueda MCHC (RBC) [Mass/Vol] 32.5 g/dL Normal 29.9-35.2 [facility] Comment on above: Performed By: #### H H #### [facility] [address] [address] [address] Jessica Mosqueda MCV (RBC) [Entitic vol] 90.9 fL Normal 81.0-99.0 [facility] Comment on above: Performed By: #### H H #### [facility] [address] [place] [address] Dr. Jessica Mosqueda PLT 158 103/ul Normal 150-450 [facility] Comment on above: Performed By: #### H H #### [facility] [address] [address] [address] Jessica Mosqueda RBC 4.16 106/ul Critically low 4.20-5.40 [facility] Comment on above: Performed By: #### H H #### [facility] [address] [place] [address] Dr. Jessica Mosqueda WBC 10.3 103/ul Normal 4.0-11.0 [facility] Comment on above: Performed By: #### H H #### [facility] [address] [place] [address] Dr. Jessica Mosqueda PHOSPHORUSon 03-22-2022 Phosphate [Mass/Vol] 4.7 mg/dL Normal 2.6-4.7 [facility] Comment on above: Performed By: #### L IPID, CMP, TSH, T7 #### [facility] [address] [place] [address] Dr. Jessica Mosqueda PROF 14(COMP METB)on 022 Albumin [Mass/Vol] 4.1 g/dL Normal 3.4-5.0 [facility] Comment on above: Performed By: #### L IPID, CMP, TSH, T7 #### [facility] [address] [place] [address] Dr. Jessica Mosqueda Albumin/Globulin [Mass ratio] 1.2 {ratio} Normal [facility] Comment on above: Performed By: #### L IPID, CMP, TSH, T7 #### [facility] [address] [place] [address] Dr. Jessica Mosqueda ALP [Catalytic activity/Vol] 36 U/L Critically low 46-116 [facility] Comment on above: Performed By: #### L IPID, CMP, TSH, T7 #### [facility] [address] [address] [address] Jessica Mosqueda ALT [Catalytic activity/Vol] 16 U/L Normal 14-59 [facility] Comment on above: Performed By: #### L IPID, CMP, TSH, T7 #### [facility] [address] [address] [address] Jessica Mosqueda Anion gap [Moles/Vol] 15.4 mmol/L Normal [facility] Comment on above: Performed By: #### L IPID, CMP, TSH, T7 #### [facility] [address] [address] [address] Jessica Mosqueda AST [Catalytic activity/Vol] 12 U/L Critically low 15-37 [facility] Comment on above: Performed By: #### L IPID, CMP, TSH, T7 #### [facility] [address] [address] [address] Jessica Mosqueda Bilirubin [Mass/Vol] 0.6 mg/dL Normal 0.2-1.0 [facility] Comment on above: Performed By: #### L IPID, CMP, TSH, T7 #### [facility] [address] [place] [address] Dr. Jessica Mosqueda Calcium [Mass/Vol] 9.3 mg/dL Normal 8.5-10.1 [facility] Comment on above: Performed By: #### L IPID, CMP, TSH, T7 #### [facility] [address] [address] [address] Jessica Mosqueda Chloride [Moles/Vol] 103 mmol/L Normal 98-107 [facility] Comment on above: Performed By: #### L IPID, CMP, TSH, T7 #### [facility] [address] [place] [address] Dr. Jessica Mosqueda CO2 [Moles/Vol] 24.4 mmol/L Normal 21.0-32.0 [facility] [place] [facility] Comment on above: Performed By: #### L IPID, CMP, TSH, T7 #### [facility] [address] [address] [address] Jessica Mosqueda Creatinine [Mass/Vol] 2.04 mg/dL Critically high 0.55-1.02 [facility] Comment on above: Performed By: #### L IPID, CMP, TSH, T7 #### [facility] [address] [address] [address] Jessica Mosqueda EGFR-AF WELSH 33 mL/min/1.73m2 Critically low >=60 [facility] Comment on above: Performed By: #### L IPID, CMP, TSH, T7 #### [facility] [address] [address] [address] Jessica Mosqueda EGFR-NON AF WELSH 27 mL/min/1.73m2 Critically low >=60 [facility] Comment on above: Performed By: #### L IPID, CMP, TSH, T7 #### [facility] [address] [place] [address] Dr. Jessica Mosqueda Globulin (S) [Mass/Vol] 3.3 g/dL Normal [facility] Comment on above: Performed By: #### L IPID, CMP, TSH, T7 #### [facility] [address] [address] [address] Jessica Mosqueda Glucose [Mass/Vol] 84 mg/dL Normal 74-106 [facility] Comment on above: Performed By: #### L IPID, CMP, TSH, T7 #### [facility] [address] [address] [address] Jessica Mosqueda Potassium [Moles/Vol] 3.8 mmol/L Normal 3.5-5.1 [facility] Comment on above: Performed By: #### L IPID, CMP, TSH, T7 #### [facility] [address] [address] [address] Jessica Mosqueda Protein [Mass/Vol] 7.4 g/dL Normal 6.4-8.2 [facility] Comment on above: Performed By: #### L IPID, CMP, TSH, T7 #### [facility] [address] [place] [address] Dr. Jessica Mosqueda Sodium [Moles/Vol] 139 mmol/L Normal 136-145 [facility] Comment on above: Performed By: #### L IPID, CMP, TSH, T7 #### [facility] [address] [place] [address] Dr. Jessica Mosqueda Urea nitrogen [Mass/Vol] 30.0 mg/dL Critically high 7.0-18.0 [facility] Comment on above: Performed By: #### L IPID, CMP, TSH, T7 #### [facility] [address] [place] [address] Dr. Jessica Mosqueda Urea nitrogen/Creatinine [Mass ratio] 14.7 mg/mg Normal [facility] Comment on above: Performed By: #### L IPID, CMP, TSH, T7 #### [facility] [address] [place] [address] Dr. Jessica Mosqueda UA RANDOMon 03-22-2022 Bilirubin Ql (U) Negative Normal NEGATIVE [facility] [place] [facility] Comment on above: Performed By: #### L IPID, CMP, TSH, T7 #### [facility] [address] [place] [address] Dr. Jessica Mosqueda Clarity (U) CLEAR Normal CLEAR [facility] Comment on above: Performed By: #### L IPID, CMP, TSH, T7 #### [facility] [address] [place] [address] Dr. Jessica Mosqueda Color (U) LT. YELLOW Normal YELLOW [facility] Comment on above: Performed By: #### L IPID, CMP, TSH, T7 #### [facility] [address] [place] [address] Dr. Jessica Mosqueda Glucose Ql (U) Negative Normal NEGATIVE [facility] Comment on above: Performed By: #### L IPID, CMP, TSH, T7 #### [facility] [address] [place] [address] Dr. Jessica Mosqueda Hemoglobin Ql (U) Negative Normal NEGATIVE [facility] [place] Comment on above: Performed By: #### L IPID, CMP, TSH, T7 #### [facility] [address] [place] [address] Dr. Jessica Mosqueda Ketones Ql (U) Negative Normal NEGATIVE [facility] Comment on above: Performed By: #### L IPID, CMP, TSH, T7 #### [facility] [address] [place] [address] Dr. Jessica Mosqueda LEUKOCYTES Negative Normal NEGATIVE [facility] Comment on above: Performed By: #### L IPID, CMP, TSH, T7 #### [facility] [address] [address] [address] Jessica Mosqueda Nitrite Ql (U) Negative Normal NEGATIVE [facility] Comment on above: Performed By: #### L IPID, CMP, TSH, T7 #### [facility] [address] [address] [address] Jessica Mosqueda pH (U) 5.5 [pH] Normal 5-9 [facility] Comment on above: Performed By: #### L IPID, CMP, TSH, T7 #### [facility] [address] [place] [address] Dr. Jessica Mosqueda SPEC GRAVITY 1.005 Normal 1.005-<=1.025 [facility] Comment on above: Performed By: #### L IPID, CMP, TSH, T7 #### [facility] [address] [place] [address] Dr. Jessica Mosqueda UA PROTEIN Negative Normal NEGATIVE/ TRACE [facility] Comment on above: Performed By: #### L IPID, CMP, TSH, T7 #### [facility] [address] [address] [address] Jessica Mosqueda Urobilinogen Qn (U) 0.2 {Fran'U}/dL Normal 0.2 - 1. 0 [facility] Comment on above: Performed By: #### L IPID, CMP, TSH, T7 #### [facility] [address] [place] [address] Dr. Jessica Mosqueda URINE T PROTEIN CREAT RATIOo n 03-22-2022 UR TOTAL PROTEIN <6.0 Normal <=12.0 [facility] Comment on above: Performed By: #### L IPID, CMP, TSH, T7 #### [facility] [address] [address] [address] Jessica Mosqueda URINE CREAT 23.46 mg/dL Normal 20.00-300.00 [facility] Comment on above: Performed By: #### L IPID, CMP, TSH, T7 #### [facility] [address] [place] [address] Dr. Jessica Mosqueda PROF 14(COMP METB)on 022 Albumin [Mass/Vol] 3.8 g/dL Normal 3.4-5.0 [facility] Comment on above: Performed By: #### L IPID, CMP, TSH, T7 #### [facility] [address] [address] [address] Jessica Mosqueda Albumin/Globulin [Mass ratio] 1.3 {ratio} Normal [facility] Comment on above: Performed By: #### L IPID, CMP, TSH, T7 #### [facility] [address] [place] [address] Dr. Jessica Mosqueda ALP [Catalytic activity/Vol] 35 U/L Critically low 46-116 [facility] Comment on above: Performed By: #### L IPID, CMP, TSH, T7 #### [facility] [address] [place] [address] Dr. Jesisca Mosqueda ALT [Catalytic activity/Vol] 17 U/L Normal 14-59 [facility] Comment on above: Performed By: #### L IPID, CMP, TSH, T7 #### [facility] [address] [address] [address] Jessica Mosqueda Anion gap [Moles/Vol] 12.2 mmol/L Normal [facility] Comment on above: Performed By: #### L IPID, CMP, TSH, T7 #### [facility] [address] [address] [address] Jessica Mosqueda AST [Catalytic activity/Vol] 13 U/L Critically low 15-37 [facility] Comment on above: Performed By: #### L IPID, CMP, TSH, T7 #### [facility] [address] [place] [address] Dr. Jessica Mosqueda Bilirubin [Mass/Vol] 0.4 mg/dL Normal 0.2-1.0 [facility] Comment on above: Performed By: #### L IPID, CMP, TSH, T7 #### [facility] [address] [address] [address] Jessica Mosqueda Calcium [Mass/Vol] 8.6 mg/dL Normal 8.5-10.1 [facility] Comment on above: Performed By: #### L IPID, CMP, TSH, T7 #### [facility] [address] [address] [address] Jessica Mosqueda Chloride [Moles/Vol] 106 mmol/L Normal 98-107 [facility] Comment on above: Performed By: #### L IPID, CMP, TSH, T7 #### [facility] [address] [place] [address] Dr. Jessica Mosqueda CO2 [Moles/Vol] 26.1 mmol/L Normal 21.0-32.0 [facility] [place] [facility] Comment on above: Performed By: #### L IPID, CMP, TSH, T7 #### [facility] [address] [place] [address] Dr. Jessica Mosqueda Creatinine [Mass/Vol] 1.76 mg/dL Critically high 0.55-1.02 [facility] Comment on above: Performed By: #### L IPID, CMP, TSH, T7 #### [facility] [address] [place] [address] Dr. Jessica Mosqueda EGFR-AF WELSH 39 mL/min/1.73m2 Critically low >=60 [facility] Comment on above: Performed By: #### L IPID, CMP, TSH, T7 #### [facility] [address] [place] [address] Dr. Jessica Mosqueda EGFR-NON AF WELSH 32 mL/min/1.73m2 Critically low >=60 [facility] Comment on above: Performed By: #### L IPID, CMP, TSH, T7 #### [facility] [address] [place] [address] Dr. Jessica Mosqueda Globulin (S) [Mass/Vol] 3.0 g/dL Normal [facility] Comment on above: Performed By: #### L IPID, CMP, TSH, T7 #### [facility] [address] [address] [address] Jessica Mosqueda Glucose [Mass/Vol] 81 mg/dL Normal 74-106 [facility] Comment on above: Performed By: #### L IPID, CMP, TSH, T7 #### [facility] [address] [address] [address] Jessica Mosqueda Potassium [Moles/Vol] 4.3 mmol/L Normal 3.5-5.1 [facility] Comment on above: Performed By: #### L IPID, CMP, TSH, T7 #### [facility] [address] [place] [address] Dr. Jessica Mosqueda Protein [Mass/Vol] 6.8 g/dL Normal 6.4-8.2 [facility] Comment on above: Performed By: #### L IPID, CMP, TSH, T7 #### [facility] [address] [address] [address] Jessica Mosqueda Sodium [Moles/Vol] 140 mmol/L Normal 136-145 [facility] Comment on above: Performed By: #### L IPID, CMP, TSH, T7 #### [facility] [address] [address] [address] Jessica Mosqueda Urea nitrogen [Mass/Vol] 20.0 mg/dL Critically high 7.0-18.0 [facility] Comment on above: Performed By: #### L IPID, CMP, TSH, T7 #### [facility] [address] [place] [address] Dr. Jessica Mosqueda Urea nitrogen/Creatinine [Mass ratio] 11.4 mg/mg Normal [facility] Comment on above: Performed By: #### L IPID, CMP, TSH, T7 #### [facility] [address] [place] [address] Dr. Jessica Mosqueda PROF 14(COMP METB)on 022 Albumin [Mass/Vol] 4.0 g/dL Normal 3.4-5.0 [facility] Comment on above: Performed By: #### L IPID, CMP, TSH, T7 #### [facility] [address] [address] [address] Jessica Mosqueda Albumin/Globulin [Mass ratio] 1.2 {ratio} Normal [facility] Comment on above: Performed By: #### L IPID, CMP, TSH, T7 #### [facility] [address] [address] [address] Jessica Mosqueda ALP [Catalytic activity/Vol] 31 U/L Critically low 46-116 [facility] Comment on above: Performed By: #### L IPID, CMP, TSH, T7 #### [facility] [address] [address] [address] Jessica Mosqueda ALT [Catalytic activity/Vol] 19 U/L Normal 14-59 [facility] Comment on above: Performed By: #### L IPID, CMP, TSH, T7 #### [facility] [address] [place] [address] Dr. Jessica Mosqueda Anion gap [Moles/Vol] 13.7 mmol/L Normal [facility] Comment on above: Performed By: #### L IPID, CMP, TSH, T7 #### [facility] [address] [place] [address] Dr. Jessica Mosqueda AST [Catalytic activity/Vol] 12 U/L Critically low 15-37 [facility] Comment on above: Performed By: #### L IPID, CMP, TSH, T7 #### [facility] [address] [address] [address] Jessica Mosqueda Bilirubin [Mass/Vol] 0.3 mg/dL Normal 0.2-1.0 [facility] Comment on above: Performed By: #### L IPID, CMP, TSH, T7 #### [facility] [address] [place] [address] Dr. Jessica Mosqueda Calcium [Mass/Vol] 9.3 mg/dL Normal 8.5-10.1 [facility] Comment on above: Performed By: #### L IPID, CMP, TSH, T7 #### [facility] [address] [place] [address] Dr. Jessica Mosqueda Chloride [Moles/Vol] 106 mmol/L Normal 98-107 [facility] Comment on above: Performed By: #### L IPID, CMP, TSH, T7 #### [facility] [address] [address] [address] Jessica Mosqueda CO2 [Moles/Vol] 25.4 mmol/L Normal 21.0-32.0 [facility] Comment on above: Performed By: #### L IPID, CMP, TSH, T7 #### [facility] [address] [address] [address] Jessica Mosqueda Creatinine [Mass/Vol] 1.84 mg/dL Critically high 0.55-1.02 [facility] Comment on above: Performed By: #### L IPID, CMP, TSH, T7 #### [facility] [address] [place] [address] Dr. Jessica Mosqueda EGFR-AF WELSH 37 mL/min/1.73m2 Critically low >=60 [facility] Comment on above: Performed By: #### L IPID, CMP, TSH, T7 #### [facility] [address] [address] [address] Jessica Mosqueda EGFR-NON AF WELSH 30 mL/min/1.73m2 Critically low >=60 [facility] Comment on above: Performed By: #### L IPID, CMP, TSH, T7 #### [facility] [address] [address] [address] Jessica Mosqueda Globulin (S) [Mass/Vol] 3.4 g/dL Normal [facility] Comment on above: Performed By: #### L IPID, CMP, TSH, T7 #### [facility] [address] [address] [address] Jessica Mosqueda Glucose [Mass/Vol] 99 mg/dL Normal 74-106 [facility] Comment on above: Performed By: #### L IPID, CMP, TSH, T7 #### [facility] [address] [address] [address] Jessica Mosqueda Potassium [Moles/Vol] 4.1 mmol/L Normal 3.5-5.1 [facility] Comment on above: Performed By: #### L IPID, CMP, TSH, T7 #### [facility] [address] [address] [address] Jessica Mosqueda Protein [Mass/Vol] 7.4 g/dL Normal 6.4-8.2 [facility] Comment on above: Performed By: #### L IPID, CMP, TSH, T7 #### [facility] [address] [place] [address] Dr. Jessica Mosqueda Sodium [Moles/Vol] 141 mmol/L Normal 136-145 [facility] Comment on above: Performed By: #### L IPID, CMP, TSH, T7 #### [facility] [address] [place] [address] Dr. Jessica Mosqueda Urea nitrogen [Mass/Vol] 25.0 mg/dL Critically high 7.0-18.0 [facility] Comment on above: Performed By: #### L IPID, CMP, TSH, T7 #### [facility] [address] [place] [address] Dr. Jessica Mosqueda Urea nitrogen/Creatinine [Mass ratio] 13.6 mg/mg Normal [facility] Comment on above: Performed By: #### L IPID, CMP, TSH, T7 #### [facility] [address] [place] [address] Dr. Jessica ALTAMIRANOPon 09-04-2019 CNOVS Visit (SP) Office ([place]) ISABEL RIVERA ([id number]) 1980 F Date Time Provider Department 09/04/19 3:45 PM LUIS ANGEL HALL During your visit today, we recorded the following information about you: Temperature Pulse Respiration Blood pressure 97.6 degrees 66/minute 18/minute 115/66 Weight Height 82.2 kg 1.676 m Luis Angel Hall, DO 09/06/2019 9:21 AM Signed PATIENT NAME: Isabel Rivera REFERRING PHYSICIAN: Timothy Mills MD [address] [place] [address] [place] [address] PRIMARY CARE PHYSICIAN: Maren James MD CHIEF [...] did not have a lupus anticoagulant. Protein SENIOR RESEARCH MANAGER were within expected ranges. She had negative [...] 2017. 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 Follows with Dr. Bateman, vascular. She does exercise slightly 3 days a week and works a [employer] in [place]. Medications as of September 2017 included only [...] questions satisfactorily.. Ankit Hall D.O. Medical Oncologist [place], [place] Cc. Dr. Bateman. Referring Provider: LUIS ANGEL HALL [[id number]] Allergies As of Date: 09/04/2019 Noted Allergy [...] LUIS ANGEL HALL DO on 09/06/19 Normal [facility] PROGRESSon 09-04-2019 PROGRESS HNO ID: [id number] Author: Luis Angel Hall Service: ? Author Type: Physician Type: Progress Notes Filed: 09/06/2019 9:21 AM Note Text: PATIENT NAME: Isabel Rivera REFERRING PHYSICIAN: Timothy Mills MD [address] [place] [address] [place] [address] PRIMARY CARE PHYSICIAN: Maren James MD CHIEF [...] did not have a lupus anticoagulant. Protein SENIOR RESEARCH MANAGER were within expected ranges. She had negative [...] 2017. 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 Follows with Dr. Bateman, vascular. She does exercise slightly 3 days a week and works a [employer] in [place]. Medications as of September 2017 included only [...] questions satisfactorily.. Ankit Hall D.O. Medical Oncologist [place], [place] Cc. Dr. Bateman. [facility] ([place]) CHULAISABEL LEDBETTER ([id number]) 1980 F Date Time Provider Department 07/30/19 3:45 PM LUIS ANGEL HALL HEMACL During your visit today, we recorded the following information about you: Temperature Pulse Respiration Blood pressure 98.4 degrees 61/minute 16/minute 107/69 Weight Height 80.6 kg 1.676 m Luis Angel Hall DO 08/02/2019 11:50 AM Signed PATIENT NAME: Isabel Rivera REFERRING PHYSICIAN: Timothy Mills MD [address] [place] [address] [place] [address] PRIMARY CARE PHYSICIAN: Maren James MD CHIEF [...] TIBC - CBC + DIFF (FOR REMOTE [facility] USE) - BASIC METABOLIC PNL [...] 2017. 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 Follows with Dr. Bateman, vascular. She does exercise slightly 3 days a week and works a [employer] in [employer] [place]. Medications as of September 2017 included only [...] questions satisfactorily.. Ankit Hall D.O. Medical Oncologist [place], [place] Cc. Dr. Bateman. Referring Provider: TIMOTHY MILLS [[id number]] Allergies As of Date: 07/30/2019 (Not on File) Date Reviewed: 07/30/2019 Reviewed by: Lavonne Borrego - Fully Assessed Reason for Visit: Consult [173] Primary Visit Diagnosis:Acute deep vein thrombosis (DVT) of proximal vein of both lower extremities (HCC) [I82.4Y3] Order(s):US LEG VEIN DVT [facility] [[id number]] Order #: [id number] FUTURE FACTOR V LEIDEN/PCR [SQFVLEID] Order #: [id number] FUTURE PROTHROMBIN GENE PCR [SQPTGENE] Order #: [id number] FUTURE PROTEIN C FUNCT [SQPRCFUN] Order #: [id number] FUTURE PROTEIN S CLOTTABLE [SQPRSCLT] Order #: [id number] FUTURE ANTITHROMBIN ACTIVITY [NCJF1LRY] Order #: [id number] FUTURE LUPUS ANTICOAG PL [SQLUPUSP] Order #: [id number] FUTURE B 2 GPI IGG AND IGM [UTN1CFNG] Order #: [id number] FUTURE ANTI-CARDIOLIPIN AB [SQCARDIO] Order #: [id number] FUTURE HOMOCYSTEINE [SQHOMCYS] Order #: [id number] FUTURE FERRITIN BLD [SQFERR] Order #: [id number] FUTURE IRON + TIBC [SQIRON] Order #: [id number] FUTURE CBC + DIFF (FOR REMOTE [facility] USE) [SQRCBCDF] Order #: [id number] FUTURE BASIC METABOLIC PNL [SQBMP] Order #: [id number] FUTURE HEPATIC FUNCTION PNL [SQHFP] Order #: [id number] FUTURE Disposition: Return labs today. f/u 4 [...] by LUIS ANGEL HALL DO on 08/02/19 [facility] PROGRESSon 07-30-2019 PROGRESS HNO ID: [id number] Author: Luis Angel Hall Service: ? Author Type: Physician Type: Progress Notes Filed: 08/02/2019 11:50 AM Note Text: PATIENT NAME: Isabel Rivera REFERRING PHYSICIAN: Timothy Mills MD [address] [place] [address] [place] [address] PRIMARY CARE PHYSICIAN: Maren James MD CHIEF [...] 2017. 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 Follows with Dr. Bateman, vascular. She does exercise slightly 3 days a week and works a [employer] in [place]. Medications as of September 2017 included only [...] questions satisfactorily.. Ankit Hall D.O. Medical Oncologist [place], [place] Cc. Dr. Bateman. Normal [facility] Vital Signs Date Time Vital Sign Value Performing Clinician Facility 10-02-2024 15:31-0500 Body height 167.64 cm [facility] 10-02-2024 15:31-0500 Body mass index (BMI) [Ratio] 32.1 kg/m2 [facility] 10-02-2024 15:31-0500 Body weight 90.43 kg [facility] 10-02-2024 15:31-0500 Diastolic blood pressure 82 mm[Hg] [facility] 10-02-2024 15:31-0500 Heart rate 65 /min [facility] 10-02-2024 15:31-0500 Respiratory rate 16 /min [facility] 10-02-2024 15:31-0500 SaO2% (BldA) [Mass fraction] 100 % [facility] 10-02-2024 15:31-0500 Systolic blood pressure 119 mm[Hg] [facility] 07-10-2024 10:21-0500 Body height 167.64 cm [facility] 07-10-2024 10:21-0500 Body mass index (BMI) [Ratio] 32.6 kg/m2 [facility] 07-10-2024 10:21-0500 Body temperature 97 [degF] [facility] 07-10-2024 10:21-0500 Body weight 91.68 kg [facility] 07-10-2024 10:21-0500 Diastolic blood pressure 104 mm[Hg] [facility] 07-10-2024 10:21-0500 Heart rate 62 /min [facility] 07-10-2024 10:21-0500 Respiratory rate 16 /min [facility] 07-10-2024 10:21-0500 SaO2% (BldA) [Mass fraction] 100 % [facility] 07-10-2024 10:21-0500 Systolic blood pressure 150 mm[Hg] [facility] 03-27-2024 16:25-0400 Body height 167.64 cm [facility] 03-27-2024 16:25-0400 Body mass index (BMI) [Ratio] 32.3 kg/m2 [facility] 03-27-2024 16:25-0400 Body temperature 96.9 [degF] [facility] 03-27-2024 16:25-0400 Body weight 90.74 kg [facility] 03-27-2024 16:25-0400 Diastolic blood pressure 78 mm[Hg] [facility] 03-27-2024 16:25-0400 Heart rate 53 /min [facility] 03-27-2024 16:25-0400 Respiratory rate 16 /min [facility] 03-27-2024 16:25-0400 SaO2% (BldA) [Mass fraction] 100 % [facility] 03-27-2024 16:25-0400 Systolic blood pressure 117 mm[Hg] [facility] 01-10-2024 15:58-0400 Body height 167.64 cm [facility] 01-10-2024 15:58-0400 Body mass index (BMI) [Ratio] 33.5 kg/m2 [facility] 01-10-2024 15:58-0400 Body temperature 97.2 [degF] [facility] 01-10-2024 15:58-0400 Body weight 94.34 kg [facility] 01-10-2024 15:58-0400 Diastolic blood pressure 84 mm[Hg] [facility] 01-10-2024 15:58-0400 Heart rate 68 /min [facility] 01-10-2024 15:58-0400 Respiratory rate 16 /min [facility] 01-10-2024 15:58-0400 SaO2% (BldA) [Mass fraction] 100 % [facility] 01-10-2024 15:58-0400 Systolic blood pressure 130 mm[Hg] [facility] 10-11-2023 15:51-0500 Body height 167.64 cm [facility] 10-11-2023 15:51-0500 Body mass index (BMI) [Ratio] 33.6 kg/m2 [facility] 10-11-2023 15:51-0500 Body temperature 97.9 [degF] [facility] 10-11-2023 15:51-0500 Body weight 94.57 kg [facility] 10-11-2023 15:51-0500 Diastolic blood pressure 81 mm[Hg] [facility] 10-11-2023 15:51-0500 Heart rate 72 /min [facility] 10-11-2023 15:51-0500 Respiratory rate 16 /min [facility] 10-11-2023 15:51-0500 SaO2% (BldA) [Mass fraction] 100 % [facility] 10-11-2023 15:51-0500 Systolic blood pressure 127 mm[Hg] [facility] 06-28-2023 16:00-0500 Body height 172.72 cm Maeve Sahnidank Other [facility] Other 06-28-2023 16:00-0500 Body mass index (BMI) [Ratio] 31.35 kg/m2 Maeve Sahnidank Other [facility] Other 06-28-2023 16:00-0500 Body temperature 97.3 [degF] Mae[facility] Tiffanie Other [facility] Other 06-28-2023 16:00-0500 Body weight 93.53 kg Maeve Sahnidank Other [facility] Other 06-28-2023 16:00-0500 Diastolic blood pressure 87 mm[Hg] Maeve Sahnidank Other [facility] Other 06-28-2023 16:00-0500 Respiratory rate 18 /min Maeve Moreno Other [facility] Other 06-28-2023 16:00-0500 SaO2% (BldA) [Mass fraction] 98 % Maeve Moreno Other [facility] Other 06-28-2023 16:00-0500 Systolic blood pressure 141 mm[Hg] Maeve Moreno Other [facility] Other 04-05-2023 16:00-0400 Body height 172.72 cm Maeve Moreno Other [facility] Other 04-05-2023 16:00-0400 Body mass index (BMI) [Ratio] 31.23 kg/m2 Maeve Moreno Other [facility] Other 04-05-2023 16:00-0400 Body temperature 96.4 [degF] Maeve Moreno Other [facility] Other 04-05-2023 16:00-0400 Body weight 93.17 kg Maeve Moreno Other [facility] Other 04-05-2023 16:00-0400 Diastolic blood pressure 85 mm[Hg] Maeve Moreno Other [facility] Other 04-05-2023 16:00-0400 Respiratory rate 18 /min Maeve Moreno Other [facility] Other 04-05-2023 16:00-0400 SaO2% (BldA) [Mass fraction] 99 % Maeve Moreno Other [facility] Other 04-05-2023 16:00-0400 Systolic blood pressure 134 mm[Hg] Maeve Moreno Other [facility] Other 12-21-2022 17:00-0400 Body height 172.72 cm Maeve Moreno Other [facility] Other 12-21-2022 17:00-0400 Body mass index (BMI) [Ratio] 31.14 kg/m2 Maeve Moreno Other [facility] Other 12-21-2022 17:00-0400 Body temperature 96.5 [degF] Maeve Moreno Other [facility] Other 12-21-2022 17:00-0400 Body weight 92.9 kg Maeve Moreon Other [facility] Other 12-21-2022 17:00-0400 Diastolic blood pressure 84 mm[Hg] Maeve Moreno Other [facility] Other 12-21-2022 17:00-0400 Respiratory rate 18 /min Maeve Moreno Other [facility] Other 12-21-2022 17:00-0400 SaO2% (BldA) [Mass fraction] 98 % Maeve Moreno Other [facility] Other 12-21-2022 17:00-0400 Systolic blood pressure 138 mm[Hg] Maeve Moreno Other [facility] Other 09-28-2022 17:00-0500 Body height 172.72 cm Maeve Sahnidank Other [facility] Other 09-28-2022 17:00-0500 Body mass index (BMI) [Ratio] 31.11 kg/m2 Maeve Moreno Other [facility] Other 09-28-2022 17:00-0500 Body temperature 98.2 [degF] Maeve Moreno Other [facility] Other 09-28-2022 17:00-0500 Body weight 92.81 kg Maeve Moreno Other [facility] Other 09-28-2022 17:00-0500 Diastolic blood pressure 94 mm[Hg] Maeve Moreno Other [facility] Other 09-28-2022 17:00-0500 Respiratory rate 18 /min Maeve Moreno Other [facility] Other 09-28-2022 17:00-0500 SaO2% (BldA) [Mass fraction] 98 % Maeve Moreno Other [facility] Other 09-28-2022 17:00-0500 Systolic blood pressure 144 mm[Hg] Maeve Moreno Other [facility] Other 07-06-2022 17:00-0500 Body height 172.72 cm Maeve Moreno Other [facility] Other 07-06-2022 17:00-0500 Body mass index (BMI) [Ratio] 30.32 kg/m2 Maeve Moreno Other [facility] Other 07-06-2022 17:00-0500 Body temperature 97.1 [degF] Maeve Moreno Other [facility] Other 07-06-2022 17:00-0500 Body weight 90.45 kg Maeve Moreno Other [facility] Other 07-06-2022 17:00-0500 Diastolic blood pressure 87 mm[Hg] Maeve Moreno Other [facility] Other 07-06-2022 17:00-0500 Respiratory rate 18 /min Maeve Moreno Other [facility] Other 07-06-2022 17:00-0500 SaO2% (BldA) [Mass fraction] 99 % Maeve Moreno Other [facility] Other 07-06-2022 17:00-0500 Systolic blood pressure 128 mm[Hg] Maeve Moreno Other [facility] Other 03-23-2022 16:40-0400 Body height 172.72 cm Maeve Moreno Other [facility] Other 03-23-2022 16:40-0400 Body mass index (BMI) [Ratio] 30.47 kg/m2 Maeve Moreno Other [facility] Other 03-23-2022 16:40-0400 Body temperature 96.9 [degF] Maeve Moreno Other [facility] Other 03-23-2022 16:40-0400 Body weight 90.9 kg Maeve Moreno Other [facility] Other 03-23-2022 16:40-0400 Diastolic blood pressure 80 mm[Hg] Maeve Moreno Other [facility] Other 03-23-2022 16:40-0400 Respiratory rate 18 /min Maeve Moreno Other [facility] Other 03-23-2022 16:40-0400 SaO2% (BldA) [Mass fraction] 99 % Maeve Moreno Other [facility] Other 03-23-2022 16:40-0400 Systolic blood pressure 116 mm[Hg] Maeve Moreno Other [facility] Other 08-09-2021 17:00-0500 Body height 172.72 cm Maeve Moreno Other [facility] Other 08-09-2021 17:00-0500 Body mass index (BMI) [Ratio] 30.53 kg/m2 Maeve Moreno Other [facility] Other 08-09-2021 17:00-0500 Body weight 91.08 kg Maeve Moreno Other [facility] Other 08-09-2021 17:00-0500 Diastolic blood pressure 80 mm[Hg] Maeve Moreno Other [facility] Other 08-09-2021 17:00-0500 Respiratory rate 18 /min Maeve Moreno Other [facility] Other 08-09-2021 17:00-0500 SaO2% (BldA) [Mass fraction] 99 % Maeve Sahnidank Other [facility] Other 08-09-2021 17:00-0500 Systolic blood pressure 142 mm[Hg] Maeve Moreno Other [facility] Other Encounters Encounter Date Encounter Type Care Provider Facility Start: 10-02-2024 End: 10-02-2024 ambulatory [facility] Work Phone: Start: 10-02-2024 End: 10-02-2024 Patient encounter procedure [facility] Physician [facility] Work Phone: Start: 07-10-2024 End: 07-10-2024 ambulatory [facility] Work Phone: Start: 07-10-2024 End: 07-10-2024 Patient encounter procedure [facility] Physician [facility] Work Phone: Start: 03-27-2024 End: 03-27-2024 ambulatory [facility] Work Phone: Start: 03-27-2024 End: 03-27-2024 Patient encounter procedure [facility] Physician [facility] Work Phone: Start: 03-20-2024 Non-patient / Non-visit [facility] Work Phone: Start: 01-10-2024 End: 01-10-2024 ambulatory [facility] Work Phone: Start: 01-10-2024 End: 01-10-2024 Patient encounter procedure [facility] Work Phone: Start: 10-11-2023 End: 10-11-2023 ambulatory [facility] Work Phone: Start: 10-11-2023 End: 10-11-2023 Patient encounter procedure [facility] Work Phone: Start: 06-28-2023 End: 06-28-2023 ambulatory Maeve Moreno Other [facility] Other Start: 06-28-2023 Office outpatient vi sit 15 minutes Maeve Moreno [facility] Start: 06-26-2023 End: 06-26-2023 ambulatory Maeve Moreno Other [facility] Other Start: 06-26-2023 Telephone encounter Maeve Moreno [facility] Start: 05-07-2023 End: 05-07-2023 ambulatory Maeve Moreno Other [facility] Other Start: 05-07-2023 Telephone encounter Maeve Moreno [facility] Start: 04-05-2023 End: 04-05-2023 ambulatory Maeve Moreno Other [facility] Other Start: 04-05-2023 Office outpatient vi sit 25 minutes Maeve Sahnidank [facility] Start: 03-27-2023 End: 03-27-2023 ambulatory Maeve Moreno Other [facility] Other Start: 03-27-2023 Telephone encounter Maeve Moreno [facility] Start: 03-12-2023 End: 03-12-2023 ambulatory Maeve Moreno Other [facility] Other Start: 03-12-2023 Telephone encounter Maeve Moreno [facility] Start: 12-21-2022 End: 12-21-2022 ambulatory Maeve Moreno Other [facility] Other Start: 12-21-2022 Office outpatient vi sit 25 minutes Maeve Moreno [facility] Start: 12-18-2022 End: 12-18-2022 ambulatory Maeve Moreno Other [facility] Other Start: 12-18-2022 Telephone encounter Maeve Sahnidank [facility] Start: 12-13-2022 End: 12-14-[address] MAEVE MORENO Facility:[facility] Start: 11-14-2022 End: 11-15-[address] MAREN JAMES . Facility:[facility] Start: 11-13-2022 Encounter for genera l adult medical examination without abnormal findings DR MAREN JAMES . [facility] Start: 11-10-2022 End: 11-11-[address] MAREN JAMES . Facility:[facility] Start: 11-10-2022 End: 11-11-2022 Encounter for general adult medical examination without abnormal findings DR MAREN JAMES . Facility:[facility] Start: 09-28-2022 End: 09-28-2022 ambulatory Maeve Moreno Other [facility] Other Start: 09-28-2022 Office outpatient vi sit 25 minutes Maeve Moreno [facility] Start: 09-26-2022 End: 09-27-[address] MAEVE MORENO Facility:[facility] Start: 07-06-2022 End: 07-06-2022 ambulatory Maeve Moreno Other [facility] Other Start: 07-06-2022 Office outpatient vi sit 25 minutes Maeve Moreno [facility] Start: 07-04-2022 End: 07-04-2022 ambulatory Maeve Moreno Other [facility] Other Start: 07-04-2022 Telephone encounter Maeve Moreno [facility] Start: 06-29-2022 End: 06-30-[address] MAEVE MORENO Facility:[facility] Start: 05-25-2022 End: 05-26-[address] MAEVE MORENO Facility:[facility] Start: 04-25-2022 End: 04-26-[address] MAEVE MORENO Facility:[facility] Start: 04-17-2022 End: 04-17-2022 ambulatory Maeve Moreno Other [facility] Other Start: 04-17-2022 Telephone encounter Maeve Moreno [facility] Start: 03-23-2022 End: 03-23-2022 ambulatory Maeve Moreno Other [facility] Other Start: 03-23-2022 Office outpatient vi sit 25 minutes Sekouparam Sahnidank [facility] Start: 03-22-2022 End: 03-23-[address] MAEVE MORENO Facility:[facility] Start: 02-06-2022 End: 02-07-[address] MAEVE MORENO Facility:[facility] Start: 01-13-2022 End: 01-14-[address] MAEVE MORENO [facility] [employer] Other Start: 01-13-2022 Telephone encounter Maeve Sahnidank [facility] Start: 10-04-2021 End: 10-04-2021 ambulatory Maeve Sahnidank Other [facility] Other Start: 10-04-2021 Telephone encounter Maeve Moreno [facility] Start: 09-14-2021 End: 09-14-2021 ambulatory Sekouparam Moreno Other [facility] Other Start: 09-14-2021 Telephone encounter Maeve Sahnidank [facility] Start: 08-09-2021 End: 08-09-2021 ambulatory Maeve Moreno Other [facility] Other Start: 08-09-2021 Office outpatient vi sit 25 minutes Maeve Sahnidank [facility] Start: 07-26-2021 End: 07-26-2021 ambulatory Maeve Moreno Other [facility] Other Start: 07-26-2021 Telephone encounter Maeve Sahnidank [facility] [employer] Start: 09-28-2020 End: 09-28-2020 ambulatory Maeve Moreno Other [facility] Other Start: 09-28-2020 Telephone encounter Maeve Sahnidank [facility] Plan of Treatment Date Care Activity Detail Author Comprehensive metabo lic 1999 panel - Serum or Plasma [facility] enter Comprehensive metabo lic 2000 panel - Serum or Plasma [facility] enter Comprehensive metabo lic 1999 panel - Serum or Plasma [facility] enter Comprehensive metabo lic 1999 panel - Serum or Plasma [facility] enter Comprehensive metabo lic 1999 panel - Serum or Plasma [facility] enter [facility] Payers Date Payer Category Payer Unknown [id number] 1981 Unknown [id number] 1981 Unknown [id number] 1981 Unknown [id number] 1981 Unknown [id number] 1981 Unknown [id number] 1981 Unknown [id number] 1981 Unknown [id number] 1981 Unknown [id number] 1981 Unknown [id number] 1959 Private Health Insurance [id number] Private Health Insurance [employer] [id number] Self-pay Self Pay [id number] Unknown [facility] [id number] Social History Date Type Detail Facility Unknown if ever smoked [facility] Other Sex Assigned At Sex Assigned At Bir th [facility] Other Start: 10-11-2023 End: 10-02-2024 Tobacco smoking status NHIS Never smoked tobacco (finding) [facility] Start: 1980 Sex Assigned At Female F [facility] Start: 07-10-2024 End: 10-02-2024 Sex Female (finding) [facility] Clinical Notes 09-28-2020 to 07-10-2024 Note Date [...] ki acute October 02, 2 025 3:29pm [facility] Work Phone: [phone] 614-196311-09-2023 Evaluation note* Encounter Date Diagnosis Assessment Notes [...] She was informed that they may need PRETZEL TWISTER in near future. Will refer to transplant [...] more than 140s. She has no proteinuria. 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 Will refer to transplant [...] more than 40s. She has no proteinuria. [facility] Other 05-04-2023 Evaluation note* Encounter Date Diagnosis [...] She was informed that they may need PRETZEL TWISTER in near future. Will refer to transplant [...] more than 140s. She has no proteinuria. [facility] Other 02-09-2023 Evaluation note* Encounter Date Diagnosis [...] She was informed that they may need PRETZEL TWISTER in near future. Will refer to transplant [...] to check blood pressure at my office. [facility] Other 11-17-2022 Evaluation note* Encounter Date Diagnosis [...] She was informed that they may need PRETZEL TWISTER in near future. Will refer to transplant [...] She has no bleeding events or hematuria. [facility] Other 08-04-2022 Evaluation note* Encounter Date Diagnosis [...] She was informed that they may need PRETZEL TWISTER in near future. Will refer to transplant [...] She has no bleeding events or hematuria. [facility] Other 05-27-2022 Evaluation note* Encounter Date Diagnosis Assessment Notes Treatment Notes Treatment Clinical Notes December, Polycystic dysplastic kidney (ICD-10 - Q61.3) December, CKD (chronic kidney disease) stage 2, GFR 60-89 ml/min (ICD-10 - N18.2) December, Factor V Leiden (ICD-10 - D68.51) [facility] Other 02-09-2021 Evaluation note* Encounter Date Diagnosis Assessment Notes Treatment Notes Treatment Clinical Notes Sep, Polycystic dysplastic kidney (ICD-10 - Q61.3) [facility] Other Evaluation noteNort wutabout Other Evaluation noteNo InformationNort wutabout Other Evaluation note* Diagnosis Onset Date Resolution Status 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 CKD stage G4/A3, GFR 15-29 a nd albumin creatinine ratio >300 mg/g acute Factor V Leiden acute [id number] acute [facility] Work Phone: Evaluation note* Diagnosis Onset Date Resolution Status 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 CKD stage G4/A3, GFR 15-29 a nd albumin creatinine ratio >300 mg/g acute Factor V Leiden acute [id number] acute Polycystic kidney disease no neactive 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 CKD (chronic kidney disease) stage 4, GFR 15-29 ml/min acute CKD stage G4/A3, GFR 15-29 a nd albumin creatinine ratio >300 mg/g acute Factor V Leiden acute [id number] acute Polycystic dysplastic kidney acute [facility] Work Phone: Evaluation note* Diagnosis Onset Date Resolution Status Admit Date 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 Novem rika 2023 3:50pm CKD (chronic kidney disease) stage 4, GFR 15-29 ml/min acute Novemb er 2023 3:50pm Factor V Leiden acute July 10, 2024 3:50pm Hypertensive chronic kidney disease with stage 1 through stage 4 chronic ki acute June 3:50pm [facility] Work Phone: History general Narrative - ReportedextraTKT Other History general Narrative - Reported* Type Description Date Medical History PCOS Medical History previous blood clot in leg X 2 Medical History CAPILLARY HEMANGIOMA Medical History FACTOR V LEIDEN MUTATION Surgical History WISDOM TEETH X4 Hospitalization History CHILD X 2 Hospitalization History BLOOD CLOT [facility] Other Hisonic general Narrative - Reported* Type Description Date Medical History PCOS Medical History previous blood clot in leg X 2 Medical History CAPILLARY HEMANGIOMA Medical History FACTOR V LEIDEN MUTATION Surgical History WISDOM TEETH X4 Surgical History EVLT ON RIGHT LEG Hospitalization History CHILD X 2 Hospitalization History BLOOD CLOT [facility] Other Summary Purpose Family History Relationship Condition [...] creatinine ratio >300 mg/g Factor V Leiden [id number] Chief Complaint RENAL 3 MONTH F/U Reason for Visit ADPKD (autosomal dom inant polycystic kidney disease) CKD stage G4/A3, GFR 15-29 and albumin creatinine ratio >300 mg/g Factor V Leiden [id number] Chief Complaint RENAL 3 MONTH F/U RENAL 3 MONTH F/U Reason for Visit ADPKD (autosomal dom inant polycystic kidney disease) CKD stage G4/A3, GFR 15-29 and albumin creatinine ratio >300 mg/g Factor V Leiden [id number] Polycystic kidney disease ADPKD (autosomal dominant polycystic kidney disease) CKD (chronic kidney disease) stage 4, GFR 15-29 ml/min CKD stage G4/A3, GFR 15-29 and albumin creatinine ratio >300 mg/g Factor V Leiden [id number] Polycystic dysplastic kidney Chief Complaint Admit Date [...] section and content) DATE CREATED AUTHOR 09/06/2019 [facility] DATE CREATED AUTHOR AUTHOR'S ORGANIZ ATION 12/17/2022 [facility] REASON FOR VISIT (unrecogniz ed [...] BE BASED ON THE PRIMARY CLINICAL RECORDS. [employer] provides no warranty or guarantee of the accuracy or completeness of information in this document.
[2025-01-06 07:46] LABS: Hematocrit 40.3 % (36.0-48.0); Hemoglobin 13.2 g/dL (12.0-16.0); Mean Corpuscular HGB Conc 32.8 g/dL (29.9-35.2); Mean Corpuscular Hemoglobin 29.4 pg (26.7-34.0); Mean Corpuscular Volume 89.8 fL (81.0-99.0); Mean Platelet Volume 12.7 fL (9.5-13.5); Platelet Count 141 10^3/uL (150-450); Red Blood Count 4.49 10^6/uL (4.20-5.40); Red Cell Distribution Width 13.5 % (11.0-15.0); White Blood Count 10.7 10^3/uL (4.0-11.0)
[2025-01-06 08:04] LABS: Alanine Aminotransferase 16 U/L (14-59); Albumin Globulin Ratio 1.2; Alkaline Phosphatase 39 U/L (46-116); Anion Gap 15.5; Aspartate Amino Transferase 12 U/L (15-37); BUN Creatinine Ratio 14.4; Bilirubin Total 0.3 mg/dL (0.2-1.0); Calcium 9.1 mg/dL (8.5-10.1); Carbon Dioxide 24.2 mmol/L (21.0-32.0); Chloride 108 mmol/L (98-107); Estimated GFR (African America 29 (>=60 mL/min/1.73m^2); Estimated GFR (Non-African Ame 24 (>=60 mL/min/1.73m^2); Globulin 3.3 g/dL; Glucose 94 mg/dL (74-106); Phosphorus 4.9 mg/dL (2.6-4.7); Potassium 3.7 mmol/L (3.5-5.1); Sodium 144 mmol/L (136-145); Total Protein 7.3 g/dL (6.4-8.2)
[2025-01-07 15:12] LABS: PTH, Intact 66 pg/mL (15-65)
== END 2025-01-06 07:24 | disposition home or self-care (01) ==
LOC: LAB 07:25
PROVIDERS: PCP Family Medicine; Visit Provider Internal Medicine Nephrology
DX: I12.9 Hypertensive chronic kidney disease with stage 1 through stage 4 chronic kidney disease, or unspecified chronic kidney disease (principal); N18.4 Chronic kidney disease, stage 4 (severe); Q61.2 Polycystic kidney, adult type; N25.81 Secondary hyperparathyroidism of renal origin; D63.1 Anemia in chronic kidney disease
CPT/HCPCS: 36415; 80053; 83970; 84100; 85027

== ENCOUNTER 2025-04-04 12:13 | Outpatient (OUT) | payer OTHER, SELFPAY ==
--- OUTSIDE RECORDS SUMMARY | 2024-01-18 03:11 | XMS_ITS ---
Author Organization [facility] [place] Address [address] [place] [address] Care Team Providers Care Supervisor Product Inspection Name Role Phone Jacob Jovon Primary Care Provider MAREN ORTIZ Unavailable [phone] REASON FOR VISIT Labs due Encounters Encounter Location Date Provider Diagnosis [facility] [address] [place] [address] 01/18/2024 MAREN ORTIZ Well adult Z00.00 Assessments Encounter Date Diagnosis (ICD Code) Assessment Notes Treatment Notes Treatment Clinical Notes Section Notes 01/18/2024 Well adult (ICD-10 - Z00.00) Plan Of Treatment Pending Test Test Name Order Date CMP (COMPLETE METABOLIC PANEL) 4 HEMOGLOBIN A1C (GLYCO) 01/18/2024 IRON, TOTAL 01/18/2024 LIPID PANEL (CHOL/TRIG/HDL/LDL) 01/18/20 24 CBC WITH DIFF 01/18/2024 STOOL OCCULT BLOOD 01/18/2024 THYROID PANEL (T4/TSH/FREE T3) 4 Progress Notes * Isabel BROCK SDOB:1980 (43 yo F)Acc No.[id number]:01/18/2024 Patient: Sheng MORANDONTE Isabel S :1980 A ge:43 Y S ex:Female Address:[address], [place] [address] Subjective: * Chief Complaints: * L abs due * Medical History: * Surgical History: * Hospitalization/Major Diagno stic Procedure: * Medications: Objective: * Vitals: * Physical Examination: Assessment: * Assessment: 1. W [facility] adult - Z00.00 (Primary) Plan: * Treatment: * Procedure Codes: * true * Date: Generated for Andrew pastor/Jose/William on: 0 04/04/2025 12:16 PM EDT
--- OUTSIDE RECORDS SUMMARY | 2024-01-20 13:22 | XMS_ITS ---
Author Organization [facility] in [place] Address [address] [place] [address] Care Team Providers Care Commercial Instructor Supervisor Name Role Phone Angel Jovon Primary Care Provider MAREN ORTIZ Unavailable [phone] REASON FOR VISIT lab results- LMTCB Encounters Encounter Location Date Provider Diagnosis [facility] [address] [place] [address] 01/20/2024 MAREN ANGEL Plan Of Treatment No Information Progress Notes * Isabel RIVERA SDOB:1980 (43 yo F)Acc No.[id number]:01/20/2024 Patient: Sheng MARTI Isabel Isabel :1980 A ge:43 Y S ex:Female Address:[address], [place] [address] * true * Date: Generated for Printi ng/Faxing/eTransmitting on: 0 04/04/2025 12:17 PM EDT
--- OUTSIDE RECORDS SUMMARY | 2024-08-04 13:15 | XMS_ITS ---
Author Organization [facility] in [place] Address [address] [place] [address] Care Team Providers Care Senior Chemical Process Engineer Name Role Phone Jovon James Primary Care [...] Risk Notes Problem Acute urinary tract infection (584081431) Acute UTI (N39.0) Active confirmed Vital Signs Weight 204.2 lbs 08/04/2024 Height 66 in 08/04/2024 Blood pressure systolic 132 mm Hg 08/04/20 24 Blood pressure diastolic 88 mm Hg 024 BMI 32.96 kg/m2 08/04/2024 Encounters Encounter Location Date Provider Diagnosis [facility] [address] [facility] [place] [address] 08/04/2024 Jovon James Acute UTI N39.0 Assessments [...] follow up in urine Progress Notes * PATRICIAAdrianBIBIANAIsabel SDOB:1980 (43 yo F)Acc No.[id number]:08/04/2024 Progress Note Patient: Isabel DAVE Provider: Edwin James ([facility])MD :1980 A ge:43 Y S ex:Female Date:08/04/2024 Address:[address] [facility], [id number] Check In:05:00 PM ESTCheck O ut:05:26 PM [...] History: 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 NECK: n hernna supple, no masses or palpable cervical nodes, [...] Procedure Codes: * Preventive Medicine: Screenings/Counseling: B [place] ACTION PLAN Above Normal BMI Follow-up D ietary management education, guidance, and counseling * * Sign off status: Completed Visit Status: C HK (Check Out) true * Provider: Edwin James ([facility])MD Date: 1 10/05/2023 Generated for Printi ng/Faxing/eTransmitting on: 0 04/04/2025 12:17 PM EDT History and Physical Notes * HPI [...]
--- OUTSIDE RECORDS SUMMARY | 2025-04-04 12:17 | XMS_ITS | Patient Health Record ---
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 Role Phone Jovon James Primary Care Provider Allergies Allergen (clinical drug ingredient) Drug/Non Drug Allergy documented on EMR Reaction Allergy Type Onset Date Status Substance with sulfonamide structure and antibacterial mechanism of action (substance) Sulfa Antibiotics hives Drug Allergy Active Results Component Value Reference Range Notes PTH, Intact Reviewed date:07/06/2024 01:52:52 PM Interpretation: Performing Lab: Notes/Report: [facility] , PTH, Intact 88 15-65 pg/mL Performed at: - [facility] Central Sterilization Technician: Zen Perez PhD, Phone: [phone] [address] [place], [place] [id number] Performing Lab: see note - [facility] LB PHOSPHORUS Reviewed date:09/24/2024 05:05:08 PM Interpretation: Performing Lab: Notes/Report: [facility] , Phosphorus 3.8 2.6-4.7 mg/dL Performing Lab: see note ML - [facility] LB PROF 14(COMP METB) Reviewed date:09/24/2024 05:05:08 PM Interpretation: Performing Lab: Notes/Report: [facility] , Sodium 141 136-145 mmol/L Potassium 3.7 3.5-5.1 mmol/L Chloride 104 98-107 mmol/L Carbon Dioxide 25.7 21.0-32.0 mmol/L Anion Gap 15.0 Glucose 95 74-106 mg/dL Blood Urea Nitrogen 30.0 7.0-18.0 mg/dL Creatinine 3.03 0.55-1.02 mg/dL Estimated GFR ( Nupur 21 >=60 mL/mi n/1.73m 2 Estimated GFR (Non- Gladis 17 >=60 mL/mi n/1.73m 2 BUN Creatinine Ratio 9.9 Calcium 8.8 8.5-10.1 mg/dL Bilirubin Total 0.3 0.2-1.0 mg/dL Aspartate Amino Transferase 15 15-37 U/L Alanine Aminotransferase 14 14-59 U/L Alkaline Phosphatase 36 46-116 U/L Total Protein 7.7 6.4-8.2 g/dL Albumin Level 4.0 3.4-5.0 g/dL Globulin 3.7 Albumin Globulin Ratio 1.1 Performing Lab: see note [facility] LB CBC no Diff (Hemogram) Reviewed date:09/24/2024 05:05:08 PM Interpretation: Performing Lab: Notes/Report: [facility] , White Blood Count 8.0 4.0-11.0 10 3/uL Red Blood Count 4.64 4.20-5.40 10 6/uL Hemoglobin 13.4 12.0-16.0 g/dL Hematocrit 41.8 36.0-48.0 % Mean Corpuscular Volume 90.1 81.0-99.0 fL Mean Corpuscular Hemoglobin 28.9 26.7-34.0 pg Mean Corpuscular HGB Conc 32.1 29.9-35.2 g/dL Red Cell Distribution Width 13.2 11.0-15.0 % Platelet Count 152 150-450 10 3/uL Mean Platelet Volume 12.1 9.5-13.5 fL Performing Lab: see note - [facility] PTH, Intact Reviewed date:09/25/2024 12:50:08 PM Interpretation: Performing Lab: Notes/Report: [facility] , PTH, Intact 137 15-65 pg/mL Central Sterilization Technician: Zen Perez PhD, Phone: [phone] Performed at: [address] [id number] Performing Lab: [facility] - [facility] LB PROF CHEM 8 (BAS METB) Reviewed date:10/13/2024 08:13:35 PM Interpretation: Performing Lab: Notes/Report: [facility] , Sodium 141 136-145 mmol/L Potassium 4.0 3.5-5.1 mmol/L Chloride 106 98-107 mmol/L Carbon Dioxide 26.5 21.0-32.0 mmol/L Anion Gap 12.5 Glucose 127 74-106 mg/dL Blood Urea Nitrogen 30.0 7.0-18.0 mg/dL Creatinine 2.52 0.55-1.02 mg/dL Estimated GFR ( Nupur 25 >=60 mL/mi n/1.73m 2 Estimated GFR (Non- Gladis 21 >=60 mL/mi n/1.73m 2 BUN Creatinine Ratio 11.9 Calcium 9.1 8.5-10.1 mg/dL Performing Lab: see note ML - [facility] LB PHOSPHORUS Reviewed date:01/06/2025 08:17:47 PM Interpretation: Performing Lab: Notes/Report: [facility] , Phosphorus 4.9 2.6-4.7 mg/dL Performing Lab: see note ML - [facility] LB PROF 14(COMP METB) Reviewed date:01/06/2025 08:17:47 PM Interpretation: Performing Lab: Notes/Report: [facility] , Sodium 144 136-145 mmol/L Potassium 3.7 3.5-5.1 mmol/L Chloride 108 98-107 mmol/L Carbon Dioxide 24.2 21.0-32.0 mmol/L Anion Gap 15.5 Glucose 94 74-106 mg/dL Blood Urea Nitrogen 32.0 7.0-18.0 mg/dL Creatinine 2.22 0.55-1.02 mg/dL Estimated GFR ( Nupur 29 >=60 mL/mi n/1.73m 2 Estimated GFR (Non- Gladis 24 >=60 mL/mi n/1.73m 2 BUN Creatinine Ratio 14.4 Calcium 9.1 8.5-10.1 mg/dL Bilirubin Total 0.3 0.2-1.0 mg/dL Aspartate Amino Transferase 12 15-37 U/L Alanine Aminotransferase 16 14-59 U/L Alkaline Phosphatase 39 46-116 U/L Total Protein 7.3 6.4-8.2 g/dL Albumin Level 4.0 3.4-5.0 g/dL Globulin 3.3 Albumin Globulin Ratio 1.2 Performing Lab: see note - [facility] LB CBC no Diff (Hemogram) Reviewed date:01/06/2025 08:17:47 PM Interpretation: Performing Lab: Notes/Report: [facility] , White Blood Count 10.7 4.0-11.0 10 3/uL Red Blood Count 4.49 4.20-5.40 10 6/uL Hemoglobin 13.2 12.0-16.0 g/dL Hematocrit 40.3 36.0-48.0 % Mean Corpuscular Volume 89.8 81.0-99.0 fL Mean Corpuscular Hemoglobin 29.4 26.7-34.0 pg Mean Corpuscular HGB Conc 32.8 29.9-35.2 g/dL Red Cell Distribution Width 13.5 11.0-15.0 % Platelet Count 141 150-450 10 3/uL Mean Platelet Volume 12.7 9.5-13.5 fL Performing Lab: see note - [facility] LB PTH, Intact Reviewed date:01/07/2025 05:49:00 PM Interpretation: Performing Lab: Notes/Report: [facility] , PTH, Intact 66 15-65 pg/mL Central Sterilization Technician: Zen Perez PhD, Phone: [phone] [address], [place] [phone] Performed at: [facility] Performing Lab: see note - [facility] LB PROF 14(COMP METB) Reviewed date:07/04/2024 06:30:20 AM Interpretation: Performing Lab: Notes/Report: [facility] , Sodium 144 136-145 mmol/L Potassium 4.5 3.5-5.1 mmol/L Chloride 108 98-107 mmol/L Carbon Dioxide 23.4 21.0-32.0 mmol/L Anion Gap 17.1 Glucose 86 74-106 mg/dL Blood Urea Nitrogen 38.0 7.0-18.0 mg/dL Creatinine 2.36 0.55-1.02 mg/dL Estimated GFR ( Nupur 27 >=60 mL/mi n/1.73m 2 Estimated GFR (Non- Gladis 23 >=60 mL/mi n/1.73m 2 BUN Creatinine Ratio 16.1 Calcium 9.0 8.5-10.1 mg/dL Bilirubin Total 0.3 0.2-1.0 mg/dL Aspartate Amino Transferase 11 15-37 U/L Alanine Aminotransferase 11 14-59 U/L Alkaline Phosphatase 36 46-116 U/L Total Protein 7.3 6.4-8.2 g/dL Albumin Level 4.0 3.4-5.0 g/dL Globulin 3.3 Albumin Globulin Ratio 1.2 Performing Lab: see note ML - [facility] LB PHOSPHORUS Reviewed date:07/04/2024 06:30:20 AM Interpretation: Performing Lab: Notes/Report: [facility] , Phosphorus 4.6 2.6-4.7 mg/dL Performing Lab: see note ML - [facility] LB Reason For Referral No Information Medications Medication SIG (Take, Route, Frequency, Duration) Notes Start Date End Date Status ZyrTEC 10 MG 1 tablet Orally Once a day Active Cefdinir 300 MG 2 capsule Orally onc e a day for 10 days 08/04/2024 Active Pantoprazole Sodium 40 MG TAKE 1 TABLET BY MOUTH EVERY DAY FOR 30 DAYS for 90 days Active Jynarque 90 & 30 MG as directed Orally Active Xarelto 20 MG TAKE 1 TABLET BY [place] TH EVERY DAY for 90 Active Pyridium 200 MG 1 tablet after meals Orally Three times a day for 2 days 08/04/2024 Active Social History Tobacco Use: Social History Observation Description Date Details (start date - stop date) Never Smoker NA - NA Tobacco Use/Smoking Question Answer Notes Patient is a nonsmoker Alcohol Screen (Audit-C) Question Answer Notes Did you have a drink contain ing alcohol in the past year? Yes How often did you have 6 or more drinks on one occasion in the past year? Monthly or less (1 point) How many drinks did you have on a typical day when you were drinking in the past year? 1 or 2 drinks (0 point) How often did you have a dri nk containing alcohol in the past year? Weekly (3 points) Points 4 Interpretation Positive Problems Problem Type SNOMED Code ICD Code Onset Dates Problem Status W/U Status Risk Notes Problem 525667112 Chronic venous hypertension (idiopathic) without complications of unspecified lower extremity (I87.309) Active confirmed Problem Factor V Leiden mutation (117140927) Factor V Leiden mutation (D68.51) Active confirmed Problem Pain in left leg (773769651) Left leg pain (M79.605) Active confirmed Problem Cellulitis (349215799) Cellulitis (L03.90) Active confirmed Problem Polycystic kidney disease (30108039) Polycystic kidney disease (Q61.3) Active confirmed Problem Acute urinary tract infection (544241162) Acute UTI (N39.0) Active confirmed Vital Signs Blood pressure diastolic 88 mm Hg 08/04/2024 Height 66 in 08/04/2024 Blood pressure systolic 132 mm Hg 08/04/2024 Weight 204.2 lbs 08/04/2024 BMI 32.96 kg/m2 08/04/2024 Encounters Encounter Location Date Provider Diagnosis [facility] [address] [place] [address] 08/04/2024 Jovon James Acute UTI N39.0 Assessments Encounter Date Diagnosis (ICD Code) Assessment Notes Treatment Notes Treatment Clinical Notes Section Notes 08/04/2024 Acute UTI (ICD-10 - N39.0) coming abck in 2 weeks follow up in urine Plan Of Treatment Pending Test Test Name Order Date CMP (COMPLETE METABOLIC PANEL) 4 HEMOGLOBIN A1C (GLYCO) 01/18/2024 IRON, TOTAL 01/18/2024 LIPID PANEL (CHOL/TRIG/HDL/LDL) 01/18/20 24 CBC WITH DIFF 01/18/2024 US Lower Extremity LT 02/09/2023 STOOL OCCULT BLOOD 01/18/2024 THYROID PANEL (T4/TSH/FREE T3) 4 Insurance Providers Payer Name Payer Address Payer Phone Subscriber Number Group Number Insured Name Patient Relationship to Insured Coverage Start Date Coverage End Date [employer] [place] [address] [place] [address] [id number] Alfa [place] Spouse - patient is the spouse of the insured Medications Administered Medication Instructions Date of Administration Dosage Notes Ceftriaxone 1 gram 12/19/2023 1 g 1 gram Medical (General) History Medical History History ICD Code Factor V Leiden mutation D68.51 Near syncope R55 Polycystic kidney disease Q61.3 DVT (deep venous thrombosis) I82.409 Surgical History Surgery Date(Month/Year) VC INJ foam sclerosant [employer] 07/12
--- OUTSIDE RECORDS SUMMARY | 2025-04-04 12:18 | XMS_ITS | CCD ---
Author Organization [facility] Care Team Providers [place] Tax Assessor Name Role Phone Maeve Moreno Unavailable DR [...] Sulfonamides (Antibiotic) Propensity to adverse reactions rash Fingerprint Other Medications Current Medications Medication Drug Class(es) [...] pantoprazole 40 mg delayed release oral tablet (11 sources) Proton Pump Inhibitor Start: 10-11-2023 End: 03-27-2024 take 1 tablet by mouth once daily Pantoprazole 40 mg tablet,delayed release (DR/EC) Active 40 MG PO Daily March 27, 2024 4:26pm Start: 10-11-2023 End: 03-27-2024 Pantoprazole Discontinued MG [...] food Orally Once a day Active tolvaptan 60 mg oral tablet (20 sources) Vasopressin V2 Receptor Antagonist Start: 01-15-2025 Tolvaptan (Polycys Kidney Dis) 60 mg (AM)/ 30 mg (PM) tablets, sequential Active 0 PO per package directions 56 January 15, 2025 12:00am PO PER PKG DIR Start: 07-10-2024 End: 01-15-2025 Tolvaptan (Polycys Kidney Di s) (Jynarque) 45 mg (AM)/ 15 mg (PM) tablets, sequential Discontinued 0 PO per package directions September 29, 2024 4:53pm January 15, 2025 4:50pm PO PER PKG DIR Start: 06-04-2024 End: 07-10-2024 take 1 tablet by mouth every eight hours in the morning Tolvaptan (Polycys Kidney Dis) (Jynarque) 90 mg (AM)/ 30 mg (PM) tablets, sequential Discontinued 0 .ROUTE .[facility] June 04, 2024 4:44pm July 10, 2024 5:33pm TAKE ONE 90MG TABLET BY MOUTH UPON AWAKING, AND ONE 30MG TABLET BY MOUTH 8 HOURS LATER Start: 06-04-2024 End: 07-10-2024 take 1 tablet by mouth every eight hours in the morning Tolvaptan (Polycys Kidney Dis) (Jynarque) 90 mg (AM)/ 30 mg (PM) tablets, sequential Discontinued 0 .ROUTE .[facility] June 04, 2024 3:44pm July 10, 2024 4:33pm TAKE ONE 90MG TABLET BY MOUTH UPON AWAKING, AND ONE 30MG TABLET BY MOUTH 8 HOURS LATER Start: 04-07-2024 End: 06-04-2024 take 1 tablet by mouth every eight hours in the morning Tolvaptan (Polycys Kidney Dis) (Jynarque) 90 mg (AM)/ 30 mg (PM) tablets, sequential Discontinued 0 .ROUTE [facility] April 07, 2024 11:41am June 04, 2024 4:45pm TAKE ONE 90 MG TABLET BY MOUTH UPON WAKING, THEN TAKE ONE 30 MG TABLET BY MOUTH 8 HOURS LATER EVERY DAY Start: 04-07-2024 End: 06-04-2024 take 1 tablet by mouth every eight hours in the morning Tolvaptan (Polycys Kidney Dis) (Jynarque) 90 mg (AM)/ 30 mg (PM) tablets, sequential Discontinued 0 .ROUTE [facility] April 07, 2024 10:41am June 04, 2024 [...] Discontinued 0 .ROUTE .[facility] April 06, 2024 9:31am April 07, 2024 11:41am TAKE ONE 90 MG TABLET BY MOUTH [...] per package directions 56 December 23, 2023 11:04pm April 06, 2024 9:33am PO PER PKG DIR Start: 03-28-2023 Jynarque [...] She was informed that they may need STAFF RADIOLOGIST in near future. Will refer to transplant evaluation once GFR < 20 ml/min. She does not have a donor. 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 Jessica Mosqueda HEMOGRAM AND PLATELon 2022 Hematocrit (Bld) [Volume fraction] 41.0 % Normal 36.0-48.0 [facility] Comment on above: Performed By: #### H H #### [facility] [address] [place] [address] Dr. Jessica Mosqueda Hemoglobin (Bld) [Mass/Vol] 13.0 g/dL Normal 12.0-16.0 [facility] Comment on above: Performed By: #### H H #### [facility] [address] [place] [address] Dr. Jessica Mosqueda MCH (RBC) [Entitic mass] 28.6 pg Normal 26.7-34.0 [facility] Comment on above: Performed By: #### H H #### [facility] [address] [place] [address] Dr. Jessica Mosqueda MCHC (RBC) [Mass/Vol] 31.7 g/dL Normal 29.9-35.2 [facility] Comment on above: Performed By: #### H H #### [facility] [address] [place] [address] Dr. Jessica Mosqueda MCV (RBC) [Entitic vol] 90.3 fL Normal 81.0-99.0 [facility] Comment on above: Performed By: #### H H #### [facility] [address] [place] [address] Dr. Jessica Mosqueda PLT 133 103/ul Critically low 150-450 [facility] Comment on above: Performed By: #### H H #### [facility] [address] [place] [address] Dr. Jessica Mosqueda RBC 4.54 106/ul Normal 4.20-5.40 [facility] Comment on above: Performed By: #### H H #### [facility] [address] [place] [address] Dr. Jessica Mosqueda WBC 9.0 103/ul Normal 4.0-11.0 [facility] Comment on above: Performed By: #### H H #### [facility] [address] [place], [place] [id number] Dr. Jessica Mosqueda PHOSPHORUSon 12-13-2022 Phosphate [Mass/Vol] 4.3 mg/dL Normal 2.6-4.7 [facility] Comment on above: Performed By: #### P THINT #### [facility] [address] [place] [address] Dr. Jessica Mosqueda PROF 14(COMP METB)on 023 Albumin [Mass/Vol] 3.8 g/dL Normal 3.4-5.0 [facility] Comment on above: Performed By: #### P THINT #### [facility] [address] [place] [address] Dr. Jessica Mosqueda Albumin/Globulin [Mass ratio] 1.1 {ratio} Normal [facility] Comment on above: Performed By: #### P THINT #### [facility] [address] [place] [address] Dr. Jessica Mosqueda ALP [Catalytic activity/Vol] 36 U/L Critically low 46-116 [facility] Comment on above: Performed By: #### P THINT #### [facility] [address] [place] [address] Dr. Jessica Mosqueda ALT [Catalytic activity/Vol] 14 U/L Normal 14-59 [facility] Comment on above: Performed By: #### P THINT #### [facility] [address] [place] [address] Dr. Jessica Mosqueda Anion gap [Moles/Vol] 11.9 mmol/L Normal [facility] Comment on above: Performed By: #### P THINT #### [facility] [address] [place] [address] Dr. Jessica Mosqueda AST [Catalytic activity/Vol] 13 U/L Critically low 15-37 [facility] Comment on above: Performed By: #### P THINT #### [facility] [address] [place] [address] Dr. Jessica Mosqueda Bilirubin [Mass/Vol] 0.3 mg/dL Normal 0.2-1.0 [facility] Comment on above: Performed By: #### P THINT #### [facility] [address] [address] [address] Jessica Mosqueda Calcium [Mass/Vol] 9.0 mg/dL Normal 8.5-10.1 [facility] Comment on above: Performed By: #### P THINT #### [facility] [address] [address] [address] Jessica Mosqueda Chloride [Moles/Vol] 107 mmol/L Normal 98-107 [facility] Comment on above: Performed By: #### P THINT #### [facility] [address] [address] [address] Jessica Mosqueda CO2 [Moles/Vol] 28.1 mmol/L Normal 21.0-32.0 [facility] Comment on above: Performed By: #### P THINT #### [facility] [address] [address] [address] Jessica Mosqueda Creatinine [Mass/Vol] 2.10 mg/dL Critically high 0.55-1.02 [facility] Comment on above: Performed By: #### P THINT #### [facility] [address] [address] [address] Jessica Mosqueda EGFR-AF MOZAMBICAN 31 mL/min/1.73m2 Critically low >=60 [facility] Comment on above: Performed By: #### P THINT #### [facility] [address] [address] [address] Jessica Mosqueda EGFR-NON AF MOZAMBICAN 26 mL/min/1.73m2 Critically low >=60 [facility] Comment on above: Performed By: #### P THINT #### [facility] [address] [address] [address] Jessica Mosqueda Globulin (S) [Mass/Vol] 3.6 g/dL Normal [facility] Comment on above: Performed By: #### P THINT #### [facility] [address] [address] [address] Jessica Mosqueda Glucose [Mass/Vol] 82 mg/dL Normal 74-106 [facility] Comment on above: Performed By: #### P THINT #### [facility] [address] [address] [address] Jessica Mosqueda Potassium [Moles/Vol] 4.0 mmol/L Normal 3.5-5.1 [facility] Comment on above: Performed By: #### P THINT #### [facility] [address] [address] [address] Jessica Mosqueda Protein [Mass/Vol] 7.4 g/dL Normal 6.4-8.2 [facility] Comment on above: Performed By: #### P THINT #### [facility] [address] [address] [address] Jessica Mosqueda Sodium [Moles/Vol] 143 mmol/L Normal 136-145 [facility] Comment on above: Performed By: #### P THINT #### [facility] [address] [address] [address] Jessica Mosqueda Urea nitrogen [Mass/Vol] 23.0 mg/dL Critically high 7.0-18.0 [facility] Comment on above: Performed By: #### P THINT #### [facility] [address] [address] [address] Jessica Mosqueda Urea nitrogen/Creatinine [Mass ratio] 11.0 mg/mg Normal [facility] Comment on above: Performed By: #### P THINT #### [facility] [address] [address] [address] Jessica Mosqueda MG MAMM SCREEN 3D MATILDA CADon 11-14-2022 MG MAMM SCREEN 3D MATILDA CAD Patient: ISABEL RIVERA Exam Date: 11/14/2022 : 1980 Gender:F Ordering : DR MAREN JAMES . Admission #: [id number] Family : Order #: [id number] CLICK HERE TO VIEW EXAM RADIOLOGY REPORT [...] unknown cancer at age 51. LOCATION: [facility] BREAST COMPOSITION: Extremely dense, which lowers [...] M.D. on 11/15/2022 at 07:51 Normal [facility] INSULINon 11-11-2022 Insulin 7.2 uIU/mL Normal 2.6-24.9 [facility] Comment on above: Performed By: #### I NSULIN #### [facility] [address] [place] [address] Dr. Jessica Mosqueda CBC AUTO DIFFon 11-10-2022 BASO # 0.0 103/ul Normal 0.0-0.1 [facility] Comment on above: Performed By: #### L IPID, CMP, TSH, T7 #### [facility] [address] [address] [address] Jessica Mosqueda Basophils/100 WBC (Bld) 0.5 % Normal 0.2-2.0 [facility] Comment on above: Performed By: #### L IPID, CMP, TSH, T7 #### [facility] [address] [place] [address] Dr. Jsesica Mosqueda EO # 0.3 103/ul Normal 0.0-0.7 [facility] Comment on above: Performed By: #### L IPID, CMP, TSH, T7 #### [facility] [address] [place] [address] Dr. Jessica Mosqueda Eosinophils/100 WBC (Bld) 3.6 % Normal 0.9-7.0 [facility] Comment on above: Performed By: #### L IPID, CMP, TSH, T7 #### [facility] [address] [place] [address] Dr. Jessica Mosqueda Erythrocyte distribution width (RBC) [Ratio] 13.2 % Normal 11.0-15.0 [facility] Comment on above: Performed By: #### L IPID, CMP, TSH, T7 #### [facility] [address] [address] [address] Jessica Mosqueda Hematocrit (Bld) [Volume fraction] 41.9 % Normal 36.0-48.0 [facility] Comment on above: Performed By: #### L IPID, CMP, TSH, T7 #### [facility] [address] [address] [address] Jessica Mosqueda Hemoglobin (Bld) [Mass/Vol] 13.3 g/dL Normal 12.0-16.0 [facility] Comment on above: Performed By: #### L IPID, CMP, TSH, T7 #### [facility] [address] [place] [address] Dr. Jessica Mosqueda IG # 0.02 10e3/ul Normal 0.00-0.03 [facility] Comment on above: Performed By: #### L IPID, CMP, TSH, T7 #### [facility] [address] [address] [address] Jessica Mosqueda IG % 0.3 % Normal 0.0-0.5 [facility] Comment on above: Performed By: #### L IPID, CMP, TSH, T7 #### [facility] [address] [address] [address] Jessica Mosqueda LYMPH # 2.2 103/ul Normal 1.2-3.8 [facility] Comment on above: Performed By: #### L IPID, CMP, TSH, T7 #### [facility] [address] [address] [address] Jessica Mosqueda Lymphocytes/100 WBC (Bld) 29.6 % Normal 20.5-60.0 [facility] Comment on above: Performed By: #### L IPID, CMP, TSH, T7 #### [facility] [address] [address] [address] Jessica Mosqueda MANUAL DIFF REQ NO Normal [facility] Comment on above: Performed By: #### L IPID, CMP, TSH, T7 #### [facility] [address] [place] [address] Dr. Jessica Mosqueda MCH (RBC) [Entitic mass] 28.9 pg Normal 26.7-34.0 [facility] Comment on above: Performed By: #### L IPID, CMP, TSH, T7 #### [facility] [address] [place] [address] Dr. Jessica Mosqueda MCHC (RBC) [Mass/Vol] 31.7 g/dL Normal 29.9-35.2 [facility] Comment on above: Performed By: #### L IPID, CMP, TSH, T7 #### [facility] [address] [place] [address] Dr. Jessica Mosqueda MCV (RBC) [Entitic vol] 91.1 fL Normal 81.0-99.0 [facility] Comment on above: Performed By: #### L IPID, CMP, TSH, T7 #### [facility] [address] [place] [address] Dr. Jessica Mosqueda MONO # 0.5 103/ul Normal 0.3-0.8 [facility] Comment on above: Performed By: #### L IPID, CMP, TSH, T7 #### [facility] [address] [place] [address] Dr. Jessica Mosqueda Monocytes/100 WBC (Bld) 6.1 % Normal 1.7-12.0 [facility] Comment on above: Performed By: #### L IPID, CMP, TSH, T7 #### [facility] [address] [place] [address] Dr. Jessica Mosqueda NEUT # 4.4 103/ul Normal 1.4-6.5 [facility] Comment on above: Performed By: #### L IPID, CMP, TSH, T7 #### [facility] [address] [place] [address] Dr. Jessica Mosqueda Neutrophils/100 WBC (Bld) 59.9 % Normal 43.0-75.0 [facility] Comment on above: Performed By: #### L IPID, CMP, TSH, T7 #### [facility] [address] [place] [address] Dr. Jessica Mosqueda Platelet mean volume (Bld) [Entitic vol] 12.5 fL Normal 9.5-13.5 [facility] Comment on above: Performed By: #### L IPID, CMP, TSH, T7 #### [facility] [address] [place] [address] Dr. Jessica Mosqueda PLT 157 103/ul Normal 150-450 [facility] Comment on above: Performed By: #### L IPID, CMP, TSH, T7 #### [facility] [address] [place] [address] Dr. Jessica Mosqueda RBC 4.60 106/ul Normal 4.20-5.40 [facility] Comment on above: Performed By: #### L IPID, CMP, TSH, T7 #### [facility] [address] [place] [address] Dr. Jessica Mosqueda WBC 7.3 103/ul Normal 4.0-11.0 [facility] Comment on above: Performed By: #### L IPID, CMP, TSH, T7 #### [facility] [address] [place] [address] Dr. Jessica Mosqueda FREE THYROXINE INDEX T7on FTI 2.51 Normal 1.30-4.50 [facility] Comment on above: Performed By: #### L IPID, CMP, TSH, T7 #### [facility] [address] [place] [address] Dr. Jessica Mosqueda T3U 38.0 % Normal 30.0-39.0 [facility] Comment on above: Performed By: #### L IPID, CMP, TSH, T7 #### [facility] [address] [place] [address] Dr. Jessica Mosqueda T4 [Mass/Vol] 6.60 ug/dL Normal 4.80-13.90 [facility] Comment on above: Performed By: #### L IPID, CMP, TSH, T7 #### [facility] [address] [place] [address] Dr. Jessica Mosqueda GLYCOHEMOGLOBIN A1Con 2022 ADA RECOMMENDATION SEE BELOW Normal [facility] Comment on above: Result Comment: ADA RECOMMENDED LIMIT 4.0 - 6.0 ADA THERAPEUTIC TARGET < 7.0 ACTION SUGGESTED > 7.0 Performed By: #### P THINT #### [facility] [address] [address] [address] Jessica Mosqueda Glucose [Mass/Vol] 111 mg/dL Normal [facility] Comment on above: Performed By: #### P THINT #### [facility] [address] [address] [address] Jessica Mosqueda HbA1c (Bld) [Mass fraction] 5.5 % Normal 4.5-6.2 [facility] Comment on above: Performed By: #### P THINT #### [facility] [address] [address] [address] Jessica Mosqueda IRONon 11-10-2022 Iron [Mass/Vol] 58.0 ug/dL Normal 50.0-170.0 [facility] Comment on above: Performed By: #### P THINT #### [facility] [address] [address] [address] Jessica Mosqueda LIPID PROFILEon 11-10-2022 CHOL-HDL RATIO NORM SEE BELOW Normal [facility] Comment on above: Result Comment: 3.3 - 4.4 LOW RISK 4.4 - 7.1 AVERAGE RISK 7.1 - 11.0 MODERATE RISK >11.0 HIGH RISK Performed By: #### L IPID, CMP, TSH, T7 #### [facility] [address] [address] [address] Jessica Mosqueda Cholesterol [Mass/Vol] 205 mg/dL Critically high <=200 [facility] Comment on above: Performed By: #### L IPID, CMP, TSH, T7 #### [facility] [address] [address] [address] Jessica Mosqueda Cholesterol in HDL [Mass/Vol] 60 mg/dL Normal 40-60 [facility] Comment on above: Performed By: #### L IPID, CMP, TSH, T7 #### [facility] [address] [address] [address] Jessica Mosqueda Cholesterol in LDL [Mass/Vol] 127.4 mg/dL Normal [facility] Comment on above: Performed By: #### L IPID, CMP, TSH, T7 #### [facility] [address] [address] [address] Jessica Mosqueda Cholesterol.total/Cho lesterol in HDL [Mass ratio] 3.4 {ratio} Normal [facility] Comment on above: Performed By: #### L IPID, CMP, TSH, T7 #### [facility] [address] [address] [address] Jessica Mosqueda HDL NORMAL > or = 60 mg/dl - LOW CARDIOVASCULAR RISK <40 mg/dl - HIGH CARDIOVASCULAR RISK Normal [facility] Comment on above: Performed By: #### L IPID, CMP, TSH, T7 #### [facility] [address] [address] [address] Jessica Mosqueda LDL CALC NORMAL SEE BELOW Normal [facility] Comment on above: Result Comment: <100 mg/dl OPTIMAL 100 - 129 mg/dl NEAR OR ABOVE OPTIMAL 130 - 159 mg/dl BORDERLINE HIGH 160 - 189 mg/dl HIGH >190 mg/dl VERY HIGH Performed By: #### L IPID, CMP, TSH, T7 #### [facility] [address] [address] [address] Jessica Mosqueda Triglyceride [Mass/Vol] 88 mg/dL Normal <=150 [facility] Comment on above: Performed By: #### L IPID, CMP, TSH, T7 #### [facility] [address] [address] [address] Jessica Mosqueda VLDL CALC 17.6 mg/dL Normal [facility] Comment on above: Performed By: #### L IPID, CMP, TSH, T7 #### [facility] [address] [address] [address] Jessica Mosqueda PROF 14(COMP METB)on 023 Albumin [Mass/Vol] 3.8 g/dL Normal 3.4-5.0 [facility] Comment on above: Performed By: #### L IPID, CMP, TSH, T7 #### [facility] [address] [address] [address] Jessica Mosqueda Albumin/Globulin [Mass ratio] 1.1 {ratio} Normal [facility] Comment on above: Performed By: #### L IPID, CMP, TSH, T7 #### [facility] [address] [address] [address] Jessica Mosqueda ALP [Catalytic activity/Vol] 37 U/L Critically low 46-116 [facility] Comment on above: Performed By: #### L IPID, CMP, TSH, T7 #### [facility] [address] [place] [address] Dr. Jessica Mosqueda ALT [Catalytic activity/Vol] 16 U/L Normal 14-59 [facility] Comment on above: Performed By: #### L IPID, CMP, TSH, T7 #### [facility] [address] [place] [address] Dr. Jessica Mosqueda Anion gap [Moles/Vol] 13.7 mmol/L Normal [facility] Comment on above: Performed By: #### L IPID, CMP, TSH, T7 #### [facility] [address] [place] [address] Dr. Jessica Mosqueda AST [Catalytic activity/Vol] 14 U/L Critically low 15-37 [facility] Comment on above: Performed By: #### L IPID, CMP, TSH, T7 #### [facility] [address] [address] [address] Jessica Mosqueda Bilirubin [Mass/Vol] 0.4 mg/dL Normal 0.2-1.0 [facility] Comment on above: Performed By: #### L IPID, CMP, TSH, T7 #### [facility] [address] [place] [address] Dr. Jessica Mosqueda Calcium [Mass/Vol] 9.6 mg/dL Normal 8.5-10.1 [facility] Comment on above: Performed By: #### L IPID, CMP, TSH, T7 #### [facility] [address] [place] [address] Dr. Jessica Mosqueda Chloride [Moles/Vol] 107 mmol/L Normal 98-107 [facility] Comment on above: Performed By: #### L IPID, CMP, TSH, T7 #### [facility] [address] [address] [address] Jessica Mosqueda CO2 [Moles/Vol] 27.5 mmol/L Normal 21.0-32.0 [facility] Comment on above: Performed By: #### L IPID, CMP, TSH, T7 #### [facility] [address] [address] [address] Jessica Mosqueda Creatinine [Mass/Vol] 1.74 mg/dL Critically high 0.55-1.02 [facility] Comment on above: Performed By: #### L IPID, CMP, TSH, T7 #### [facility] [address] [address] [address] Jessica Mosqueda EGFR-AF MOZAMBICAN 39 mL/min/1.73m2 Critically low >=60 [facility] Comment on above: Performed By: #### L IPID, CMP, TSH, T7 #### [facility] [address] [address] [address] Jessica Mosqueda EGFR-NON AF MOZAMBICAN 32 mL/min/1.73m2 Critically low >=60 [facility] Comment on above: Performed By: #### L IPID, CMP, TSH, T7 #### [facility] [address] [address] [address] Jessica Mosqueda Globulin (S) [Mass/Vol] 3.4 g/dL Normal [facility] Comment on above: Performed By: #### L IPID, CMP, TSH, T7 #### [facility] [address] [address] [address] Jessica Mosqueda Glucose [Mass/Vol] 95 mg/dL Normal 74-106 [facility] Comment on above: Performed By: #### L IPID, CMP, TSH, T7 #### [facility] [address] [address] [address] Jessica Mosqueda Potassium [Moles/Vol] 4.2 mmol/L Normal 3.5-5.1 [facility] Comment on above: Performed By: #### L IPID, CMP, TSH, T7 #### [facility] [address] [address] [address] Jessica Mosqueda Protein [Mass/Vol] 7.2 g/dL Normal 6.4-8.2 [facility] Comment on above: Performed By: #### L IPID, CMP, TSH, T7 #### [facility] [address] [place] [address] Dr. Jessica Mosqueda Sodium [Moles/Vol] 144 mmol/L Normal 136-145 [facility] Comment on above: Performed By: #### L IPID, CMP, TSH, T7 #### [facility] [address] [place] [address] Dr. Jessica Mosqueda Urea nitrogen [Mass/Vol] 25.0 mg/dL Critically high 7.0-18.0 [facility] Comment on above: Performed By: #### L IPID, CMP, TSH, T7 #### [facility] [address] [place] [address] Dr. Jessica Mosqueda Urea nitrogen/Creatinine [Mass ratio] 14.4 mg/mg Normal [facility] Comment on above: Performed By: #### L IPID, CMP, TSH, T7 #### [facility] [address] [place] [address] Dr. Jessica Mosqueda TSHon 11-10-2022 TSH 1.244 uIU/mL Normal 0.358-3.740 [facility] Comment on above: Performed By: #### L IPID, CMP, TSH, T7 #### [facility] [facility] [address] [place] [address] Dr. Jessica Mosqueda PTH INTACTon 09-28-2022 PTH, Intact 43 pg/mL Normal 15-65 [facility] Comment on above: Performed By: #### L IPID, CMP, TSH, T7 #### [facility] [address] [place] [address] Dr. Jessica Mosqueda HEMOGRAM AND PLATELon 2022 Hematocrit (Bld) [Volume fraction] 39.0 % Normal 36.0-48.0 [facility] Comment on above: Performed By: #### H H #### [facility] [address] [place] [address] Dr. Jessica Mosqueda Hemoglobin (Bld) [Mass/Vol] 12.3 g/dL Normal 12.0-16.0 [facility] Comment on above: Performed By: #### H H #### [facility] [address] [place] [address] Dr. Jessica Mosqueda MCH (RBC) [Entitic mass] 29.1 pg Normal 26.7-34.0 [facility] Comment on above: Performed By: #### H H #### [facility] [address] [place] [address] Dr. Jessica Mosqueda MCHC (RBC) [Mass/Vol] 31.5 g/dL Normal 29.9-35.2 [facility] Comment on above: Performed By: #### H H #### [facility] [address] [place] [address] Dr. Jessica Mosqueda MCV (RBC) [Entitic vol] 92.4 fL Normal 81.0-99.0 [facility] Comment on above: Performed By: #### H H #### [facility] [address] [place] [address] Dr. Jessica Mosqueda PLT 131 103/ul Critically low 150-450 [facility] Comment on above: Performed By: #### H H #### [facility] [address] [place] [address] Dr. Jessica Mosqueda RBC 4.22 106/ul Normal 4.20-5.40 [facility] Comment on above: Performed By: #### H H #### [facility] [address] [place] [address] Dr. Jessica Mosqueda WBC 8.6 103/ul Normal 4.0-11.0 [facility] Comment on above: Performed By: #### H H #### [facility] [address] [place] [address] Dr. Jessica Mosqueda PHOSPHORUSon 09-26-2022 Phosphate [Mass/Vol] 4.3 mg/dL Normal 2.6-4.7 [facility] Comment on above: Performed By: #### P THINT #### [facility] [address] [address] [address] Jessica Mosqueda PROF 14(COMP METB)on 023 Albumin [Mass/Vol] 3.9 g/dL Normal 3.4-5.0 [facility] Comment on above: Performed By: #### P THINT #### [facility] [address] [address] [address] Jessica Mosqueda Albumin/Globulin [Mass ratio] 1.1 {ratio} Normal [facility] Comment on above: Performed By: #### P THINT #### [facility] [address] [place] [address] Dr. Jessica Mosqueda ALP [Catalytic activity/Vol] 34 U/L Critically low 46-116 [facility] Comment on above: Performed By: #### P THINT #### [facility] [address] [address] [address] Jessica Mosqueda ALT [Catalytic activity/Vol] 13 U/L Critically low 14-59 [facility] Comment on above: Performed By: #### P THINT #### [facility] [address] [place] [address] Dr. Jessica Mosqueda Anion gap [Moles/Vol] 13.6 mmol/L Normal [facility] Comment on above: Performed By: #### P THINT #### [facility] [address] [place] [address] Dr. Jessica Mosqueda AST [Catalytic activity/Vol] 9 U/L Critically low 15-37 [facility] Comment on above: Performed By: #### P THINT #### [facility] [address] [address] [address] Jessica Mosqueda Bilirubin [Mass/Vol] 0.3 mg/dL Normal 0.2-1.0 [facility] Comment on above: Performed By: #### P THINT #### [facility] [address] [place] [address] Dr. Jessica Mosqueda Calcium [Mass/Vol] 9.5 mg/dL Normal 8.5-10.1 [facility] Comment on above: Performed By: #### P THINT #### [facility] [address] [address] [address] Jessica Mosqueda Chloride [Moles/Vol] 105 mmol/L Normal 98-107 [facility] Comment on above: Performed By: #### P THINT #### [facility] [address] [address] [address] Jessica Mosqueda CO2 [Moles/Vol] 24.7 mmol/L Normal 21.0-32.0 [facility] Comment on above: Performed By: #### P THINT #### [facility] [address] [place] [address] Dr. Jessica Mosqueda Creatinine [Mass/Vol] 1.67 mg/dL Critically high 0.55-1.02 [facility] Comment on above: Performed By: #### P THINT #### [facility] [address] [place] [address] Dr. Jessica Mosqueda EGFR-AF MOZAMBICAN 41 mL/min/1.73m2 Critically low >=60 [facility] Comment on above: Performed By: #### P THINT #### [facility] [address] [place] [address] Dr. Jessica Mosqueda EGFR-NON AF MOZAMBICAN 34 mL/min/1.73m2 Critically low >=60 [facility] Comment on above: Performed By: #### P THINT #### [facility] [address] [place] [address] Dr. Jessica Mosqueda Globulin (S) [Mass/Vol] 3.5 g/dL Normal [facility] Comment on above: Performed By: #### P THINT #### [facility] [address] [address] [address] Jessica Mosqueda Glucose [Mass/Vol] 94 mg/dL Normal 74-106 [facility] Comment on above: Performed By: #### P THINT #### [facility] [address] [place] [address] Dr. Jessica Mosqueda Potassium [Moles/Vol] 4.4 mmol/L Normal 3.5-5.1 [facility] Comment on above: Performed By: #### P THINT #### [facility] [address] [place] [address] Dr. Jessica Mosqueda Protein [Mass/Vol] 7.4 g/dL Normal 6.4-8.2 [facility] Comment on above: Performed By: #### P THINT #### [facility] [address] [place] [address] Dr. Jessica Mosqueda Sodium [Moles/Vol] 139 mmol/L Normal 136-145 [facility] Comment on above: Performed By: #### P THINT #### [facility] [address] [place] [address] Dr. Jessica Mosqueda Urea nitrogen [Mass/Vol] 29.0 mg/dL Critically high 7.0-18.0 [facility] Comment on above: Performed By: #### P THINT #### [facility] [address] [place] [address] Dr. Jessica Mosqueda Urea nitrogen/Creatinine [Mass ratio] 17.4 mg/mg Normal [facility] Comment on above: Performed By: #### P THINT #### [facility] [address] [place] [address] Dr. Jessica Mosqueda PTH INTACTon 06-30-2022 PTH, Intact 64 pg/mL Normal 15-65 [facility] Comment on above: Performed By: #### P THINT #### [facility] [address] [place] [address] Dr. Jessica Mosqueda HEMOGRAM AND PLATELon 2021 Hematocrit (Bld) [Volume fraction] 37.5 % Normal 36.0-48.0 [facility] Comment on above: Performed By: #### P THINT #### [facility] [address] [place] [address] Dr. Jessica Mosqueda Hemoglobin (Bld) [Mass/Vol] 12.1 g/dL Normal 12.0-16.0 [facility] Comment on above: Performed By: #### P THINT #### [facility] [address] [place] [address] Dr. Jessica Mosqueda MCH (RBC) [Entitic mass] 29.0 pg Normal 26.7-34.0 [facility] Comment on above: Performed By: #### P THINT #### [facility] [address] [address] [address] Jessica Mosqueda MCHC (RBC) [Mass/Vol] 32.3 g/dL Normal 29.9-35.2 [facility] Comment on above: Performed By: #### P THINT #### [facility] [address] [address] [address] Jessica Mosqueda MCV (RBC) [Entitic vol] 89.9 fL Normal 81.0-99.0 [facility] Comment on above: Performed By: #### P THINT #### [facility] [address] [address] [address] Jessica Mosqueda PLT 170 103/ul Normal 150-450 [facility] Comment on above: Performed By: #### P THINT #### [facility] [address] [address] [address] Jessica Mosqueda RBC 4.17 106/ul Critically low 4.20-5.40 [facility] Comment on above: Performed By: #### P THINT #### [facility] [address] [address] [address] Jessica Mosqueda WBC 9.4 103/ul Normal 4.0-11.0 [facility] Comment on above: Performed By: #### P THINT #### [facility] [address] [place] [address] Dr. Jessica Mosqueda PHOSPHORUSon 06-29-2022 Phosphate [Mass/Vol] 3.8 mg/dL Normal 2.6-4.7 [facility] Comment on above: Performed By: #### L IPID, CMP, TSH, T7 #### [facility] [address] [address] [address] Jessica Mosqueda PROF 14(COMP METB)on 022 Albumin [Mass/Vol] 4.0 g/dL Normal 3.4-5.0 [facility] Comment on above: Performed By: #### L IPID, CMP, TSH, T7 #### [facility] [address] [address] [address] Jessica Mosqueda Albumin/Globulin [Mass ratio] 1.2 {ratio} Normal [facility] Comment on above: Performed By: #### L IPID, CMP, TSH, T7 #### [facility] [address] [address] [address] Jessica Mosqueda ALP [Catalytic activity/Vol] 38 U/L Critically low 46-116 [facility] Comment on above: Performed By: #### L IPID, CMP, TSH, T7 #### [facility] [address] [address] [address] Jessica Mosqueda ALT [Catalytic activity/Vol] 13 U/L Critically low 14-59 [facility] Comment on above: Performed By: #### L IPID, CMP, TSH, T7 #### [facility] [address] [place] [address] Dr. Jessica Mosqueda Anion gap [Moles/Vol] 13.1 mmol/L Normal [facility] Comment on above: Performed By: #### L IPID, CMP, TSH, T7 #### [facility] [address] [place] [address] Dr. Jessica Mosqueda AST [Catalytic activity/Vol] 14 U/L Critically low 15-37 [facility] Comment on above: Performed By: #### L IPID, CMP, TSH, T7 #### [facility] [address] [address] [address] Jessica Mosqueda Bilirubin [Mass/Vol] 0.4 mg/dL Normal 0.2-1.0 [facility] Comment on above: Performed By: #### L IPID, CMP, TSH, T7 #### [facility] [address] [place] [address] Dr. Jessica Mosqueda Calcium [Mass/Vol] 9.2 mg/dL Normal 8.5-10.1 [facility] Comment on above: Performed By: #### L IPID, CMP, TSH, T7 #### [facility] [address] [address] [address] Jessica Mosqueda Chloride [Moles/Vol] 104 mmol/L Normal 98-107 [facility] Comment on above: Performed By: #### L IPID, CMP, TSH, T7 #### [facility] [address] [place] [address] Dr. Jessica Mosqueda CO2 [Moles/Vol] 26.1 mmol/L Normal 21.0-32.0 [facility] Comment on above: Performed By: #### L IPID, CMP, TSH, T7 #### [facility] [address] [address] [address] Jessica Mosqueda Creatinine [Mass/Vol] 1.86 mg/dL Critically high 0.55-1.02 [facility] Comment on above: Performed By: #### L IPID, CMP, TSH, T7 #### [facility] [address] [place] [address] Dr. Jessica Mosqueda EGFR-AF MOZAMBICAN 36 mL/min/1.73m2 Critically low >=60 [facility] Comment on above: Performed By: #### L IPID, CMP, TSH, T7 #### [facility] [address] [address] [address] Jessica Mosqueda EGFR-NON AF MOZAMBICAN 30 mL/min/1.73m2 Critically low >=60 [facility] Comment on above: Performed By: #### L IPID, CMP, TSH, T7 #### [facility] [address] [place] [address] Dr. Jessica Mosqueda Globulin (S) [Mass/Vol] 3.4 g/dL Normal [facility] Comment on above: Performed By: #### L IPID, CMP, TSH, T7 #### [facility] [address] [address] [address] Jessica Mosqueda Glucose [Mass/Vol] 84 mg/dL Normal 74-106 [facility] Comment on above: Performed By: #### L IPID, CMP, TSH, T7 #### [facility] [address] [address] [address] Jessica Mosqueda Potassium [Moles/Vol] 4.2 mmol/L Normal 3.5-5.1 [facility] Comment on above: Performed By: #### L IPID, CMP, TSH, T7 #### [facility] [address] [place] [address] Dr. Jessica Mosqueda Protein [Mass/Vol] 7.4 g/dL Normal 6.4-8.2 [facility] Comment on above: Performed By: #### L IPID, CMP, TSH, T7 #### [facility] [address] [place] [address] Dr. Jessica Mosqueda Sodium [Moles/Vol] 139 mmol/L Normal 136-145 [facility] Comment on above: Performed By: #### L IPID, CMP, TSH, T7 #### [facility] [address] [place] [address] Dr. Jessica Mosqueda Urea nitrogen [Mass/Vol] 26.0 mg/dL Critically high 7.0-18.0 [facility] Comment on above: Performed By: #### L IPID, CMP, TSH, T7 #### [facility] [address] [place] [address] Dr. Jessica Mosqueda Urea nitrogen/Creatinine [Mass ratio] 14.0 mg/mg Normal [facility] Comment on above: Performed By: #### L IPID, CMP, TSH, T7 #### [facility] [address] [place] [address] Dr. Jessica Mosqueda UA RANDOMon 06-29-2022 Bilirubin Ql (U) Negative Normal NEGATIVE [facility] Comment on above: Performed By: #### L IPID, CMP, TSH, T7 #### [facility] [address] [place] [address] Dr. Jessica Mosqueda Clarity (U) CLEAR Normal CLEAR [facility] Comment on above: Performed By: #### L IPID, CMP, TSH, T7 #### [facility] [address] [place] [address] Dr. Jessica Mosqueda Color (U) LT. YELLOW Normal YELLOW [facility] Comment on above: Performed By: #### L IPID, CMP, TSH, T7 #### [facility] [address] [address] [address] Jessica Mosqueda Glucose Ql (U) Negative Normal NEGATIVE [facility] Comment on above: Performed By: #### L IPID, CMP, TSH, T7 #### [facility] [address] [place] [address] Dr. Jessica Mosqueda Hemoglobin Ql (U) Negative Normal NEGATIVE [facility] Comment on above: Performed By: #### L IPID, CMP, TSH, T7 #### [facility] [address] [address] [address] Jessica Mosqueda Ketones Ql (U) Negative Normal NEGATIVE [facility] Comment on above: Performed By: #### L IPID, CMP, TSH, T7 #### [facility] [address] [place] [address] Dr. Jessica Mosqueda LEUKOCYTES Negative Normal NEGATIVE [facility] Comment on above: Performed By: #### L IPID, CMP, TSH, T7 #### [facility] [address] [place] [address] Dr. Jessica Mosqueda Nitrite Ql (U) Negative Normal NEGATIVE [facility] Comment on above: Performed By: #### L IPID, CMP, TSH, T7 #### [facility] [address] [place] [address] Dr. Jessica Mosqueda pH (U) 6.0 [pH] Normal 5-9 [facility] Comment on above: Performed By: #### L IPID, CMP, TSH, T7 #### [facility] [address] [place] [address] Dr. Jessica Mosqueda SPEC GRAVITY <=1.005 Abnormal 1.005-<=1.025 [facility] Comment on above: Performed By: #### L IPID, CMP, TSH, T7 #### [facility] [address] [place] [address] Dr. Jessica Mosqueda UA PROTEIN Negative Normal NEGATIVE/ TRACE [facility] Comment on above: Performed By: #### L IPID, CMP, TSH, T7 #### [facility] [address] [place] [address] Dr. Jessica Mosqueda Urobilinogen Qn (U) 0.2 {Fran'U}/dL Normal 0.2 - 1. 0 [facility] Comment on above: Performed By: #### L IPID, CMP, TSH, T7 #### [facility] [address] [address] [address] Jessica Mosqueda PROF 14(COMP METB)on 022 Albumin [Mass/Vol] 3.9 g/dL Normal 3.4-5.0 [facility] Comment on above: Performed By: #### P THINT #### [facility] [address] [place] [address] Dr. Jessica Mosqueda Albumin/Globulin [Mass ratio] 1.1 {ratio} Normal [facility] Comment on above: Performed By: #### P THINT #### [facility] [address] [place] [address] Dr. Jessica Mosqueda ALP [Catalytic activity/Vol] 36 U/L Critically low 46-116 [facility] Comment on above: Performed By: #### P THINT #### [facility] [address] [place] [address] Dr. Jessica Mosqueda ALT [Catalytic activity/Vol] 17 U/L Normal 14-59 [facility] Comment on above: Performed By: #### P THINT #### [facility] [address] [place] [address] Dr. Jessica Mosqueda Anion gap [Moles/Vol] 13.9 mmol/L Normal [facility] Comment on above: Performed By: #### P THINT #### [facility] [address] [place] [address] Dr. Jessica Mosqueda AST [Catalytic activity/Vol] 11 U/L Critically low 15-37 [facility] Comment on above: Performed By: #### P THINT #### [facility] [address] [place] [address] Dr. Jessica Mosqueda Bilirubin [Mass/Vol] 0.3 mg/dL Normal 0.2-1.0 [facility] Comment on above: Performed By: #### P THINT #### [facility] [address] [address] [address] Jessica Mosqueda Calcium [Mass/Vol] 9.2 mg/dL Normal 8.5-10.1 [facility] Comment on above: Performed By: #### P THINT #### [facility] [address] [address] [address] Jessica Mosqueda Chloride [Moles/Vol] 105 mmol/L Normal 98-107 [facility] Comment on above: Performed By: #### P THINT #### [facility] [address] [address] [address] Jessica Mosqueda CO2 [Moles/Vol] 26.5 mmol/L Normal 21.0-32.0 [facility] Comment on above: Performed By: #### P THINT #### [facility] [address] [place] [address] Dr. Jessica Mosqueda Creatinine [Mass/Vol] 2.06 mg/dL Critically high 0.55-1.02 [facility] Comment on above: Performed By: #### P THINT #### [facility] [address] [place] [address] Dr. Jessica Mosqueda EGFR-AF MOZAMBICAN 32 mL/min/1.73m2 Critically low >=60 [facility] Comment on above: Performed By: #### P THINT #### [facility] [address] [place] [address] Dr. Jessica Mosqueda EGFR-NON AF MOZAMBICAN 27 mL/min/1.73m2 Critically low >=60 [facility] Comment on above: Performed By: #### P THINT #### [facility] [address] [place] [address] Dr. Jessica Mosqueda Globulin (S) [Mass/Vol] 3.5 g/dL Normal [facility] Comment on above: Performed By: #### P THINT #### [facility] [address] [place] [address] Dr. Jessica Mosqueda Glucose [Mass/Vol] 75 mg/dL Normal 74-106 [facility] Comment on above: Performed By: #### P THINT #### [facility] [address] [address] [address] Jessica Mosqueda Potassium [Moles/Vol] 4.4 mmol/L Normal 3.5-5.1 [facility] Comment on above: Performed By: #### P THINT #### [facility] [address] [address] [address] Jessica Mosqueda Protein [Mass/Vol] 7.4 g/dL Normal 6.4-8.2 [facility] Comment on above: Performed By: #### P THINT #### [facility] [address] [address] [address] Jessica Mosqueda Sodium [Moles/Vol] 141 mmol/L Normal 136-145 [facility] Comment on above: Performed By: #### P THINT #### [facility] [address] [address] [address] Jessica Mosqueda Urea nitrogen [Mass/Vol] 37.0 mg/dL Critically high 7.0-18.0 [facility] Comment on above: Performed By: #### P THINT #### [facility] [address] [address] [address] Jessica Mosqueda Urea nitrogen/Creatinine [Mass ratio] 18.0 mg/mg Normal [facility] Comment on above: Performed By: #### P THINT #### [facility] [address] [address] [address] Jessica Mosqueda PROF 14(COMP METB)on 022 Albumin [Mass/Vol] 3.9 g/dL Normal 3.4-5.0 [facility] Comment on above: Performed By: #### C MP #### [facility] [address] [address] [address] Jessica Mosqueda Albumin/Globulin [Mass ratio] 1.2 {ratio} Normal [facility] Comment on above: Performed By: #### C MP #### [facility] [address] [address] [address] Jessica Mosqueda ALP [Catalytic activity/Vol] 32 U/L Critically low 46-116 [facility] Comment on above: Performed By: #### C MP #### [facility] [address] [address] [address] Jessica Mosqueda ALT [Catalytic activity/Vol] 12 U/L Critically low 14-59 [facility] Comment on above: Performed By: #### C MP #### [facility] [address] [place] [address] Dr. Jessica Mosqueda Anion gap [Moles/Vol] 13.6 mmol/L Normal [facility] Comment on above: Performed By: #### C MP #### [facility] [address] [place] [address] Dr. Jessica Mosqueda AST [Catalytic activity/Vol] 15 U/L Normal 15-37 [facility] Comment on above: Performed By: #### C MP #### [facility] [address] [place] [address] Dr. Jessica Mosqueda Bilirubin [Mass/Vol] 0.2 mg/dL Normal 0.2-1.0 [facility] Comment on above: Performed By: #### C MP #### [facility] [address] [place] [address] Dr. Jessica Mosqueda Calcium [Mass/Vol] 9.2 mg/dL Normal 8.5-10.1 [facility] Comment on above: Performed By: #### C MP #### [facility] [address] [place] [address] Dr. Jessica Mosqueda Chloride [Moles/Vol] 105 mmol/L Normal 98-107 [facility] Comment on above: Performed By: #### C MP #### [facility] [address] [place] [address] Dr. Jessica Mosqueda CO2 [Moles/Vol] 26.0 mmol/L Normal 21.0-32.0 [facility] Comment on above: Performed By: #### C MP #### [facility] [address] [place] [address] Dr. Jessica Mosqueda Creatinine [Mass/Vol] 1.98 mg/dL Critically high 0.55-1.02 [facility] Comment on above: Performed By: #### C MP #### [facility] [address] [place] [address] Dr. Jessica Mosqueda EGFR-AF MOZAMBICAN 34 mL/min/1.73m2 Critically low >=60 [facility] Comment on above: Performed By: #### C MP #### [facility] [address] [address] [address] Jessica Mosqueda EGFR-NON AF MOZAMBICAN 28 mL/min/1.73m2 Critically low >=60 [facility] Comment on above: Performed By: #### C MP #### [facility] [address] [address] [address] Jessica Mosqueda Globulin (S) [Mass/Vol] 3.3 g/dL Normal [facility] Comment on above: Performed By: #### C MP #### [facility] [address] [address] [address] Jessica Mosqueda Glucose [Mass/Vol] 93 mg/dL Normal 74-106 [facility] Comment on above: Performed By: #### C MP #### [facility] [address] [address] [address] Jessica Mosqueda Potassium [Moles/Vol] 4.6 mmol/L Normal 3.5-5.1 [facility] Comment on above: Performed By: #### C MP #### [facility] [address] [address] [address] Jessica Mosqueda Protein [Mass/Vol] 7.2 g/dL Normal 6.4-8.2 [facility] Comment on above: Performed By: #### C MP #### [facility] [address] [address] [address] Jessica Mosqueda Sodium [Moles/Vol] 140 mmol/L Normal 136-145 [facility] Comment on above: Performed By: #### C MP #### [facility] [address] [address] [address] Jessica Mosqueda Urea nitrogen [Mass/Vol] 23.0 mg/dL Critically high 7.0-18.0 [facility] Comment on above: Performed By: #### C MP #### [facility] [address] [address] [address] Jessica Mosqueda Urea nitrogen/Creatinine [Mass ratio] 11.6 mg/mg Normal [facility] Comment on above: Performed By: #### C MP #### [facility] [address] [place] [address] Dr. Jessica Mosqueda PTH INTACTon 03-23-2022 PTH, Intact 71 pg/mL Critically high 15-65 [facility] Comment on above: Performed By: #### P THINT #### [facility] [address] [place] [address] Dr. Jessica Mosqueda HEMOGRAM AND PLATELon 2021 Hematocrit (Bld) [Volume fraction] 37.8 % Normal 36.0-48.0 [facility] Comment on above: Performed By: #### H H #### [facility] [address] [place] [address] Dr. Jessica Mosqueda Hemoglobin (Bld) [Mass/Vol] 12.3 g/dL Normal 12.0-16.0 [facility] Comment on above: Performed By: #### H H #### [facility] [address] [place] [address] Dr. Jessica Mosqueda MCH (RBC) [Entitic mass] 29.6 pg Normal 26.7-34.0 [facility] Comment on above: Performed By: #### H H #### [facility] [address] [place] [address] Dr. Jessica Mosqueda MCHC (RBC) [Mass/Vol] 32.5 g/dL Normal 29.9-35.2 [facility] Comment on above: Performed By: #### H H #### [facility] [address] [place] [address] Dr. Jessica Mosqueda MCV (RBC) [Entitic vol] 90.9 fL Normal 81.0-99.0 [facility] Comment on above: Performed By: #### H H #### [facility] [address] [place] [address] Dr. Jessica Mosqueda PLT 158 103/ul Normal 150-450 [facility] Comment on above: Performed By: #### H H #### [facility] [address] [address] [address] Jessica Mosqueda RBC 4.16 106/ul Critically low 4.20-5.40 [facility] Comment on above: Performed By: #### H H #### [facility] [address] [address] [address] Jessica Mosqueda WBC 10.3 103/ul Normal 4.0-11.0 [facility] Comment on above: Performed By: #### H H #### [facility] [address] [address] [address] Jessica Mosqueda PHOSPHORUSon 03-22-2022 Phosphate [Mass/Vol] 4.7 mg/dL Normal 2.6-4.7 [facility] Comment on above: Performed By: #### L IPID, CMP, TSH, T7 #### [facility] [address] [place] [address] Dr. Jessica Mosqueda PROF 14(COMP METB)on 022 Albumin [Mass/Vol] 4.1 g/dL Normal 3.4-5.0 [facility] Comment on above: Performed By: #### L IPID, CMP, TSH, T7 #### [facility] [address] [address] [address] Jessica Mosqueda Albumin/Globulin [Mass ratio] 1.2 {ratio} Normal [facility] Comment on above: Performed By: #### L IPID, CMP, TSH, T7 #### [facility] [address] [place] [address] Dr. Jessica Mosqueda ALP [Catalytic activity/Vol] 36 U/L Critically low 46-116 [facility] Comment on above: Performed By: #### L IPID, CMP, TSH, T7 #### [facility] [address] [address] [address] Jessica Mosqueda ALT [Catalytic activity/Vol] 16 U/L Normal 14-59 [facility] Comment on above: Performed By: #### L IPID, CMP, TSH, T7 #### [facility] [address] [address] [address] Jessica Mosqueda Anion gap [Moles/Vol] 15.4 mmol/L Normal Th e [facility] Comment on above: Performed By: #### L IPID, CMP, TSH, T7 #### [facility] [address] [address] [address] Jessica Mosqueda AST [Catalytic activity/Vol] 12 U/L Critically low 15-37 [facility] Comment on above: Performed By: #### L IPID, CMP, TSH, T7 #### [facility] [address] [address] [address] Jessica Mosqueda Bilirubin [Mass/Vol] 0.6 mg/dL Normal 0.2-1.0 [facility] Comment on above: Performed By: #### L IPID, CMP, TSH, T7 #### [facility] [address] [place] [address] Dr. Jessica Mosqueda Calcium [Mass/Vol] 9.3 mg/dL Normal 8.5-10.1 [facility] Comment on above: Performed By: #### L IPID, CMP, TSH, T7 #### [facility] [address] [place] [address] Dr. Jessica Mosqueda Chloride [Moles/Vol] 103 mmol/L Normal 98-107 [facility] Comment on above: Performed By: #### L IPID, CMP, TSH, T7 #### [facility] [address] [place] [address] Dr. Jessica Mosqueda CO2 [Moles/Vol] 24.4 mmol/L Normal 21.0-32.0 [facility] Comment on above: Performed By: #### L IPID, CMP, TSH, T7 #### [facility] [address] [place] [address] Dr. Jessica Mosqueda Creatinine [Mass/Vol] 2.04 mg/dL Critically high 0.55-1.02 [facility] Comment on above: Performed By: #### L IPID, CMP, TSH, T7 #### [facility] [address] [place] [address] Dr. Jessica Mosqueda EGFR-AF MOZAMBICAN 33 mL/min/1.73m2 Critically low >=60 [facility] Comment on above: Performed By: #### L IPID, CMP, TSH, T7 #### [facility] [address] [address] [address] Jessica Mosqueda EGFR-NON AF MOZAMBICAN 27 mL/min/1.73m2 Critically low >=60 [facility] Comment on above: Performed By: #### L IPID, CMP, TSH, T7 #### [facility] [address] [address] [address] Jessica Mosqueda Globulin (S) [Mass/Vol] 3.3 g/dL Normal [facility] Comment on above: Performed By: #### L IPID, CMP, TSH, T7 #### [facility] [address] [address] [address] Jessica Mosqueda Glucose [Mass/Vol] 84 mg/dL Normal 74-106 [facility] Comment on above: Performed By: #### L IPID, CMP, TSH, T7 #### [facility] [address] [place] [address] Dr. Jessica Mosqueda Potassium [Moles/Vol] 3.8 mmol/L Normal 3.5-5.1 [facility] Comment on above: Performed By: #### L IPID, CMP, TSH, T7 #### [facility] [address] [place] [address] Dr. Jessica Mosqueda Protein [Mass/Vol] 7.4 g/dL Normal 6.4-8.2 [facility] Comment on above: Performed By: #### L IPID, CMP, TSH, T7 #### [facility] [address] [address] [address] Jessica Mosqueda Sodium [Moles/Vol] 139 mmol/L Normal 136-145 [facility] Comment on above: Performed By: #### L IPID, CMP, TSH, T7 #### [facility] [address] [place] [address] Dr. Jessica Mosqueda Urea nitrogen [Mass/Vol] 30.0 mg/dL Critically high 7.0-18.0 [facility] Comment on above: Performed By: #### L IPID, CMP, TSH, T7 #### [facility] [address] [address] [address] Jessica Mosqueda Urea nitrogen/Creatinine [Mass ratio] 14.7 mg/mg Normal [facility] Comment on above: Performed By: #### L IPID, CMP, TSH, T7 #### [facility] [address] [address] [address] Jessica Mosqueda UA RANDOMon 03-22-2022 Bilirubin Ql (U) Negative Normal NEGATIVE [facility] Comment on above: Performed By: #### L IPID, CMP, TSH, T7 #### [facility] [address] [address] [address] Jessica Mosqueda Clarity (U) CLEAR Normal CLEAR [facility] Comment on above: Performed By: #### L IPID, CMP, TSH, T7 #### [facility] [address] [place] [address] Dr. Jessica Mosqueda Color (U) LT. YELLOW Normal YELLOW [facility] Comment on above: Performed By: #### L IPID, CMP, TSH, T7 #### [facility] [address] [address] [address] Jessica Mosqueda Glucose Ql (U) Negative Normal NEGATIVE [facility] Comment on above: Performed By: #### L IPID, CMP, TSH, T7 #### [facility] [address] [address] [address] Jessica Mosqueda Hemoglobin Ql (U) Negative Normal NEGATIVE [facility] Comment on above: Performed By: #### L IPID, CMP, TSH, T7 #### [facility] [address] [address] [address] Jessica Mosqueda Ketones Ql (U) Negative Normal NEGATIVE [facility] Comment on above: Performed By: #### L IPID, CMP, TSH, T7 #### [facility] [address] [address] [address] Jessica Mosqueda LEUKOCYTES Negative Normal NEGATIVE [facility] Comment on above: Performed By: #### L IPID, CMP, TSH, T7 #### [facility] [address] [address] [address] Jessica Mosqueda Nitrite Ql (U) Negative Normal NEGATIVE [facility] Comment on above: Performed By: #### L IPID, CMP, TSH, T7 #### [facility] [address] [place] [address] Dr. Jessica Mosqueda pH (U) 5.5 [pH] Normal 5-9 [facility] Comment on above: Performed By: #### L IPID, CMP, TSH, T7 #### [facility] [address] [place] [address] Dr. Jessica Mosqueda SPEC GRAVITY 1.005 Normal 1.005-<=1.025 [facility] Comment on above: Performed By: #### L IPID, CMP, TSH, T7 #### [facility] [address] [place] [address] Dr. Jessica Mosqueda UA PROTEIN Negative Normal NEGATIVE/ TRACE [facility] Comment on above: Performed By: #### L IPID, CMP, TSH, T7 #### [facility] [address] [place] [address] Dr. Jessica Mosqueda Urobilinogen Qn (U) 0.2 {Fran'U}/dL Normal 0.2 - 1. 0 [facility] Comment on above: Performed By: #### L IPID, CMP, TSH, T7 #### [facility] [address] [place] [address] Dr. Jessica Mosqueda URINE T PROTEIN CREAT RATIOo n 03-22-2022 UR TOTAL PROTEIN <6.0 Normal <=12.0 [facility] Comment on above: Performed By: #### L IPID, CMP, TSH, T7 #### [facility] [address] [place] [address] Dr. Jessica Mosqueda URINE CREAT 23.46 mg/dL Normal 20.00-300.00 [facility] Comment on above: Performed By: #### L IPID, CMP, TSH, T7 #### [facility] [address] [place] [address] Dr. Jessica Mosqueda PROF 14(COMP METB)on 022 Albumin [Mass/Vol] 3.8 g/dL Normal 3.4-5.0 [facility] Comment on above: Performed By: #### L IPID, CMP, TSH, T7 #### [facility] [address] [address] [address] Jessica Mosqueda Albumin/Globulin [Mass ratio] 1.3 {ratio} Normal [facility] Comment on above: Performed By: #### L IPID, CMP, TSH, T7 #### [facility] [address] [address] [address] Jessica Mosqueda ALP [Catalytic activity/Vol] 35 U/L Critically low 46-116 [facility] Comment on above: Performed By: #### L IPID, CMP, TSH, T7 #### [facility] [address] [place] [address] Dr. Jessica Mosqueda ALT [Catalytic activity/Vol] 17 U/L Normal 14-59 [facility] Comment on above: Performed By: #### L IPID, CMP, TSH, T7 #### [facility] [address] [place] [address] Dr. Jessica Mosqueda Anion gap [Moles/Vol] 12.2 mmol/L Normal [facility] Comment on above: Performed By: #### L IPID, CMP, TSH, T7 #### [facility] [address] [place] [address] Dr. Jessica Mosqueda AST [Catalytic activity/Vol] 13 U/L Critically low 15-37 [facility] Comment on above: Performed By: #### L IPID, CMP, TSH, T7 #### [facility] [address] [address] [address] Jessica Mosqueda Bilirubin [Mass/Vol] 0.4 mg/dL Normal 0.2-1.0 [facility] Comment on above: Performed By: #### L IPID, CMP, TSH, T7 #### [facility] [address] [place] [address] Dr. Jessica Mosqueda Calcium [Mass/Vol] 8.6 mg/dL Normal 8.5-10.1 [facility] Comment on above: Performed By: #### L IPID, CMP, TSH, T7 #### [facility] [address] [address] [address] Jessica Mosqueda Chloride [Moles/Vol] 106 mmol/L Normal 98-107 [facility] Comment on above: Performed By: #### L IPID, CMP, TSH, T7 #### [facility] [address] [address] [address] Jessica Mosqueda CO2 [Moles/Vol] 26.1 mmol/L Normal 21.0-32.0 [facility] Comment on above: Performed By: #### L IPID, CMP, TSH, T7 #### [facility] [address] [address] [address] Jessica Mosqueda Creatinine [Mass/Vol] 1.76 mg/dL Critically high 0.55-1.02 [facility] Comment on above: Performed By: #### L IPID, CMP, TSH, T7 #### [facility] [address] [place] [address] Dr. Jessica Mosqueda EGFR-AF MOZAMBICAN 39 mL/min/1.73m2 Critically low >=60 [facility] Comment on above: Performed By: #### L IPID, CMP, TSH, T7 #### [facility] [address] [address] [address] Jessica Mosqueda EGFR-NON AF MOZAMBICAN 32 mL/min/1.73m2 Critically low >=60 [facility] Comment on above: Performed By: #### L IPID, CMP, TSH, T7 #### [facility] [address] [address] [address] Jessica Mosqueda Globulin (S) [Mass/Vol] 3.0 g/dL Normal [facility] Comment on above: Performed By: #### L IPID, CMP, TSH, T7 #### [facility] [address] [address] [address] Jessica Mosqueda Glucose [Mass/Vol] 81 mg/dL Normal 74-106 [facility] Comment on above: Performed By: #### L IPID, CMP, TSH, T7 #### [facility] [address] [address] [address] Jessica Mosqueda Potassium [Moles/Vol] 4.3 mmol/L Normal 3.5-5.1 [facility] Comment on above: Performed By: #### L IPID, CMP, TSH, T7 #### [facility] [address] [address] [address] Jessica Mosqueda Protein [Mass/Vol] 6.8 g/dL Normal 6.4-8.2 [facility] Comment on above: Performed By: #### L IPID, CMP, TSH, T7 #### [facility] [address] [address] [address] Jessica Mosqueda Sodium [Moles/Vol] 140 mmol/L Normal 136-145 [facility] Comment on above: Performed By: #### L IPID, CMP, TSH, T7 #### [facility] [address] [place] [address] Dr. Jessica Mosqueda Urea nitrogen [Mass/Vol] 20.0 mg/dL Critically high 7.0-18.0 [facility] Comment on above: Performed By: #### L IPID, CMP, TSH, T7 #### [facility] [address] [place] [address] Dr. Jessica Mosqueda Urea nitrogen/Creatinine [Mass ratio] 11.4 mg/mg Normal [facility] Comment on above: Performed By: #### L IPID, CMP, TSH, T7 #### [facility] [address] [place] [address] Dr. Jessica Mosqueda PROF 14(COMP METB)on 022 Albumin [Mass/Vol] 4.0 g/dL Normal 3.4-5.0 [facility] Comment on above: Performed By: #### L IPID, CMP, TSH, T7 #### [facility] [address] [address] [address] Jessica Mosqueda Albumin/Globulin [Mass ratio] 1.2 {ratio} Normal [facility] Comment on above: Performed By: #### L IPID, CMP, TSH, T7 #### [facility] [address] [place] [address] Dr. Jessica Mosqueda ALP [Catalytic activity/Vol] 31 U/L Critically low 46-116 [facility] Comment on above: Performed By: #### L IPID, CMP, TSH, T7 #### [facility] [address] [place] [address] Dr. Jessica Mosqueda ALT [Catalytic activity/Vol] 19 U/L Normal 14-59 [facility] Comment on above: Performed By: #### L IPID, CMP, TSH, T7 #### [facility] [address] [place] [address] Dr. Jessica Mosqueda Anion gap [Moles/Vol] 13.7 mmol/L Normal Th e [facility] Comment on above: Performed By: #### L IPID, CMP, TSH, T7 #### [facility] [address] [place] [address] Dr. Jessica Mosqueda AST [Catalytic activity/Vol] 12 U/L Critically low 15-37 [facility] Comment on above: Performed By: #### L IPID, CMP, TSH, T7 #### [facility] [address] [place] [address] Dr. Jessica Mosqueda Bilirubin [Mass/Vol] 0.3 mg/dL Normal 0.2-1.0 [facility] Comment on above: Performed By: #### L IPID, CMP, TSH, T7 #### [facility] [address] [place] [address] Dr. Jessica Mosqueda Calcium [Mass/Vol] 9.3 mg/dL Normal 8.5-10.1 [facility] Comment on above: Performed By: #### L IPID, CMP, TSH, T7 #### [facility] [address] [place] [address] Dr. Jessica Mosqueda Chloride [Moles/Vol] 106 mmol/L Normal 98-107 [facility] Comment on above: Performed By: #### L IPID, CMP, TSH, T7 #### [facility] [address] [place] [address] Dr. Jessica Mosqueda CO2 [Moles/Vol] 25.4 mmol/L Normal 21.0-32.0 [facility] Comment on above: Performed By: #### L IPID, CMP, TSH, T7 #### [facility] [address] [address] [address] Jessica Mosqueda Creatinine [Mass/Vol] 1.84 mg/dL Critically high 0.55-1.02 [facility] Comment on above: Performed By: #### L IPID, CMP, TSH, T7 #### [facility] [address] [place] [address] Dr. Jessica Mosqueda EGFR-AF MOZAMBICAN 37 mL/min/1.73m2 Critically low >=60 [facility] Comment on above: Performed By: #### L IPID, CMP, TSH, T7 #### [facility] [address] [place] [address] Dr. Jessica Mosqueda EGFR-NON AF MOZAMBICAN 30 mL/min/1.73m2 Critically low >=60 [facility] Comment on above: Performed By: #### L IPID, CMP, TSH, T7 #### [facility] [address] [place] [address] Dr. Jessica Mosqueda Globulin (S) [Mass/Vol] 3.4 g/dL Normal [facility] Comment on above: Performed By: #### L IPID, CMP, TSH, T7 #### [facility] [address] [place] [address] Dr. Jessica Mosqueda Glucose [Mass/Vol] 99 mg/dL Normal 74-106 [facility] Comment on above: Performed By: #### L IPID, CMP, TSH, T7 #### [facility] [address] [place] [address] Dr. Jessica Mosqueda Potassium [Moles/Vol] 4.1 mmol/L Normal 3.5-5.1 [facility] Comment on above: Performed By: #### L IPID, CMP, TSH, T7 #### [facility] [address] [place] [address] Dr. Jessica Mosqueda Protein [Mass/Vol] 7.4 g/dL Normal 6.4-8.2 [facility] Comment on above: Performed By: #### L IPID, CMP, TSH, T7 #### [facility] [address] [place] [address] Dr. Jessica Mosqueda Sodium [Moles/Vol] 141 mmol/L Normal 136-145 [facility] Comment on above: Performed By: #### L IPID, CMP, TSH, T7 #### [facility] [address] [address] [address] Jessica Mosqueda Urea nitrogen [Mass/Vol] 25.0 mg/dL Critically high 7.0-18.0 [facility] Comment on above: Performed By: #### L IPID, CMP, TSH, T7 #### [facility] [address] [address] [address] Jessica Mosqueda Urea nitrogen/Creatinine [Mass ratio] 13.6 mg/mg Normal [facility] Comment on above: Performed By: #### L IPID, CMP, TSH, T7 #### [facility] [address] [address] [address] Jessica Mosqueda CNOVSPon 09-04-2019 CNOVS Visit (SP) Office ([facility]) PATRICIAISABEL KENT ([id number]) 1980 F Date Time Provider Department 09/04/19 3:45 PM LUIS ANGEL HALL During your visit today, we recorded the following information about you: Temperature Pulse Respiration Blood pressure 97.6 degrees 66/minute 18/minute 115/66 Weight Height 82.2 kg 1.676 m Luis Angel Hall DO 09/06/2019 9:21 AM Signed PATIENT NAME: Isabel Rivera REFERRING PHYSICIAN: Timothy Mills MD [address] [place] [address] Dr Bundy [facility] [id number] PRIMARY CARE PHYSICIAN: Maren James MD CHIEF [...] did not have a lupus anticoagulant. Protein CHARACTER ACTRESS were within expected ranges. She had negative [...] 2017. 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 Follows with Dr. Bateman, vascular. She does exercise slightly 3 days a week and works a [employer] in [place]. Medications as of September 2017 included only [...] questions satisfactorily.. Ankit Hall D.O. Medical Oncologist [place], [place] Cc. Dr. Bateman. Referring Provider: LUIS ANGEL HALL [[id number]] Allergies As of Date: 09/04/2019 Noted Allergy [...] by LUIS ANGEL HALL DO on 09/06/19 [facility] PROGRESSon 09-04-2019 PROGRESS HNO ID: [id number] Author: Luis Angel Hall Service: ? Author Type: Physician Type: Progress Notes Filed: 09/06/2019 9:21 AM Note Text: PATIENT NAME: Isabel Rivera REFERRING PHYSICIAN: Timothy Mills MD [address] [place] [address] [place] [address] PRIMARY CARE PHYSICIAN: Maren James MD CHIEF [...] did not have a lupus anticoagulant. Protein CHARACTER ACTRESS were within expected ranges. She had negative [...] 2017. 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 Follows with Dr. Bateman, vascular. She does exercise slightly 3 days a week and works a [employer] in [place]. Medications as of September 2017 included only [...] questions satisfactorily.. Ankit Hall D.O. Medical Oncologist [facility] [place], [place] Cc. Dr. Bateman. [facility] CNOVSPon 07-30-2019 CNOVSP Visit (SP) Office ([place]) PATRICIAISABEL KENT ([id number]) 1980 F Date Time Provider Department 07/30/19 3:45 PM LUIS ANGEL HALL HEMACL During your visit today, we recorded the following information about you: Temperature Pulse Respiration Blood pressure 98.4 degrees 61/minute 16/minute 107/69 Weight Height 80.6 kg 1.676 m Luis Angel Hall DO 08/02/2019 11:50 AM Signed PATIENT NAME: Isabel Rivera REFERRING PHYSICIAN: Timothy Mills MD [address] [place] [address] [place] [address] PRIMARY CARE PHYSICIAN: Maren James MD CHIEF [...] TIBC - CBC + DIFF (FOR REMOTE [facility] USE) - BASIC METABOLIC PNL - HEPATIC [...] 2017. 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 Follows with Dr. Bateman, vascular. She does exercise slightly 3 days a week and works a [employer] in [place] [employer] [place]. Medications as of September 2017 included only [...] questions satisfactorily.. Ankit Hall D.O. Medical Oncologist [facility] [place], [place] Cc. Dr. Bateman. Referring Provider: TIMOTHY MILLS [[id number]] Allergies As of Date: 07/30/2019 (Not on File) Date Reviewed: 07/30/2019 Reviewed by: Lavonne Borrego - Fully Assessed Reason for Visit: Consult [173] Primary Visit Diagnosis:Acute deep vein thrombosis (DVT) of proximal vein of both lower extremities (HCC) [I82.4Y3] Order(s): LEG VEIN DVT [facility] [[id number]] Order #: [id number] FUTURE FACTOR V LEIDEN/PCR [SQFVLEID] Order #: [id number] FUTURE PROTHROMBIN GENE PCR [SQPTGENE] Order #: [id number] FUTURE PROTEIN C FUNCT [SQPRCFUN] Order #: [id number] FUTURE PROTEIN S CLOTTABLE [SQPRSCLT] Order #: [id number] FUTURE ANTITHROMBIN ACTIVITY [OHKX1ESC] Order #: [id number] FUTURE LUPUS ANTICOAG PL [SQLUPUSP] Order #: [id number] FUTURE B 2 GPI IGG AND IGM [CIX8RJLL] Order #: [id number] FUTURE ANTI-CARDIOLIPIN AB [SQCARDIO] Order #: [id number] FUTURE HOMOCYSTEINE [SQHOMCYS] Order #: [id number] FUTURE FERRITIN BLD [SQFERR] Order #: [id number] FUTURE IRON + TIBC [SQIRON] Order #: [id number] FUTURE CBC + DIFF (FOR REMOTE [facility] USE) [SQRCBCDF] Order #: [id number] FUTURE BASIC METABOLIC PNL [SQBMP] Order #: [id number] FUTURE HEPATIC FUNCTION PNL [SQHFP] Order #: [id number] FUTURE Disposition: Return labs today. f/u 4 [...] by LUIS ANGEL HALL DO on 08/02/19 Normal [facility] PROGRESSon 07-30-2019 PROGRESS HNO ID: [id number] Author: Luis Angel Hall Service: ? Author Type: Physician Type: Progress Notes Filed: 08/02/2019 11:50 AM Note Text: PATIENT NAME: Isabel Rivera REFERRING PHYSICIAN: Timothy Mills MD [address] [place] [address] [place] [address] PRIMARY CARE PHYSICIAN: Maren James MD CHIEF [...] TIBC - CBC + DIFF (FOR REMOTE [facility] USE) - BASIC METABOLIC PNL - HEPATIC [...] 2017. 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 Follows with Dr. Bateman, vascular. She does exercise slightly 3 days a week and works a [employer] in [facility]. Medications as of September 2017 included only [...] questions satisfactorily.. Ankit Hall D.O. Medical Oncologist [place], [place] Cc. Dr. Bateman. Normal [facility] Vital Signs Date Time Vital Sign Value Performing Clinician Facility 01-15-2025 16:30-0400 Body height 167.64 cm [facility] 01-15-2025 16:30-0400 Body mass index (BMI) [Ratio] 30.8 kg/m2 [facility] 01-15-2025 16:30-0400 Body temperature 97.6 [degF] [facility] 01-15-2025 16:30-0400 Body weight 86.69 kg [facility] 01-15-2025 16:30-0400 Diastolic blood pressure 76 mm[Hg] [facility] 01-15-2025 16:30-0400 Heart rate 49 /min [facility] 01-15-2025 16:30-0400 Respiratory rate 16 /min [facility] 01-15-2025 16:30-0400 SaO2% (BldA) [Mass fraction] 100 % [facility] 01-15-2025 16:30-0400 Systolic blood pressure 114 mm[Hg] [facility] 10-02-2024 15:31-0500 Body height 167.64 cm [facility] 10-02-2024 15:31-0500 Body mass index (BMI) [Ratio] 32.1 kg/m2 [facility] 10-02-2024 15:31-0500 Body weight 90.43 kg [facility] 10-02-2024 15:31-0500 Diastolic blood pressure 82 mm[Hg] [facility] 10-02-2024 15:31-0500 Heart rate 65 /min [facility] 10-02-2024 15:31-0500 Respiratory rate 16 /min [facility] 10-02-2024 15:31-0500 SaO2% (BldA) [Mass fraction] 100 % [facility] 10-02-2024 15:31-0500 Systolic blood pressure 119 mm[Hg] [facility] 07-10-2024 10:21-0500 Body height 167.64 cm [facility] 07-10-2024 10:21-0500 Body mass index (BMI) [Ratio] 32.6 kg/m2 [facility] 07-10-2024 10:21-0500 Body temperature 97 [degF] [facility] 07-10-2024 10:21-0500 Body weight 91.68 kg [facility] 07-10-2024 10:21-0500 Diastolic blood pressure 104 mm[Hg] [facility] 07-10-2024 10:21-0500 Heart rate 62 /min [facility] 07-10-2024 10:21-0500 Respiratory rate 16 /min [facility] 07-10-2024 10:21-0500 SaO2% (BldA) [Mass fraction] 100 % [facility] 07-10-2024 10:21-0500 Systolic blood pressure 150 mm[Hg] [facility] 03-27-2024 16:25-0400 Body height 167.64 cm [facility] 03-27-2024 16:25-0400 Body mass index (BMI) [Ratio] 32.3 kg/m2 [facility] 03-27-2024 16:25-0400 Body temperature 96.9 [degF] [facility] 03-27-2024 16:25-0400 Body weight 90.74 kg [facility] 03-27-2024 16:25-0400 Diastolic blood pressure 78 mm[Hg] [facility] 03-27-2024 16:25-0400 Heart rate 53 /min [facility] 03-27-2024 16:25-0400 Respiratory rate 16 /min [facility] 03-27-2024 16:25-0400 SaO2% (BldA) [Mass fraction] 100 % [facility] 03-27-2024 16:25-0400 Systolic blood pressure 117 mm[Hg] [facility] 01-10-2024 15:58-0400 Body height 167.64 cm [facility] 01-10-2024 15:58-0400 Body mass index (BMI) [Ratio] 33.5 kg/m2 [facility] 01-10-2024 15:58-0400 Body temperature 97.2 [degF] [facility] 01-10-2024 15:58-0400 Body weight 94.34 kg [facility] 01-10-2024 15:58-0400 Diastolic blood pressure 84 mm[Hg] [facility] 01-10-2024 15:58-0400 Heart rate 68 /min [facility] 01-10-2024 15:58-0400 Respiratory rate 16 /min [facility] 01-10-2024 15:58-0400 SaO2% (BldA) [Mass fraction] 100 % [facility] 01-10-2024 15:58-0400 Systolic blood pressure 130 mm[Hg] [facility] 10-11-2023 15:51-0500 Body height 167.64 cm [facility] 10-11-2023 15:51-0500 Body mass index (BMI) [Ratio] 33.6 kg/m2 [facility] 10-11-2023 15:51-0500 Body temperature 97.9 [degF] [facility] 10-11-2023 15:51-0500 Body weight 94.57 kg [facility] 10-11-2023 15:51-0500 Diastolic blood pressure 81 mm[Hg] [facility] 10-11-2023 15:51-0500 Heart rate 72 /min [facility] 10-11-2023 15:51-0500 Respiratory rate 16 /min [facility] 10-11-2023 15:51-0500 SaO2% (BldA) [Mass fraction] 100 % [facility] 10-11-2023 15:51-0500 Systolic blood pressure 127 mm[Hg] [facility] 06-28-2023 16:00-0500 Body height 172.72 cm Maeve Moreno Other [facility] Other 06-28-2023 16:00-0500 Body mass index (BMI) [Ratio] 31.35 kg/m2 Maeve Moreno Other [facility] Other 06-28-2023 16:00-0500 Body temperature 97.3 [degF] Maeve Moreno Other [facility] Other 06-28-2023 16:00-0500 Body weight 93.53 kg Maeve Moreno Other [facility] Other 06-28-2023 16:00-0500 Diastolic blood pressure 87 mm[Hg] Maeve Moreno Other [facility] Other 06-28-2023 16:00-0500 Respiratory rate 18 /min Maeve Moreno Other [facility] Other 06-28-2023 16:00-0500 SaO2% (BldA) [Mass fraction] 98 % Maeve Moreno Other [facility] Other 06-28-2023 16:00-0500 Systolic blood pressure 141 mm[Hg] Maeve Moreno Other [facility] Other 04-05-2023 16:00-0400 Body height 172.72 cm Maeve Moreno Other [facility] Other 04-05-2023 16:00-0400 Body mass index (BMI) [Ratio] 31.23 kg/m2 Maeve Moreno Other [facility] Other 04-05-2023 16:00-0400 Body temperature 96.4 [degF] Maeve Moreno Other [facility] Other 04-05-2023 16:00-0400 Body weight 93.17 kg Maeve Moreno Other [facility] Other 04-05-2023 16:00-0400 Diastolic blood pressure 85 mm[Hg] Maeve Moreno Other [facility] Other 04-05-2023 16:00-0400 Respiratory rate 18 /min Maeve Moreno Other [facility] Other 04-05-2023 16:00-0400 SaO2% (BldA) [Mass fraction] 99 % Maeve Moreno Other [facility] Other 04-05-2023 16:00-0400 Systolic blood pressure 134 mm[Hg] Maeve Moreno Other [facility] Other 12-21-2022 17:00-0400 Body height 172.72 cm Maeve Moreno Other [facility] Other 12-21-2022 17:00-0400 Body mass index (BMI) [Ratio] 31.14 kg/m2 Maeve Moreno Other [facility] Other 12-21-2022 17:00-0400 Body temperature 96.5 [degF] Maeve Moreno Other [facility] Other 12-21-2022 17:00-0400 Body weight 92.9 kg Maeve Moreno Other [facility] Other 12-21-2022 17:00-0400 Diastolic blood pressure 84 mm[Hg] Maeve Moreno Other [facility] Other 12-21-2022 17:00-0400 Respiratory rate 18 /min Maeve Moreno Other [facility] Other 12-21-2022 17:00-0400 SaO2% (BldA) [Mass fraction] 98 % Maeve Moreno Other [facility] Other 12-21-2022 17:00-0400 Systolic blood pressure 138 mm[Hg] Maeve Boradank Other [facility] Other 09-28-2022 17:00-0500 Body height 172.72 cm Maeve Tiffanie Other [facility] Other 09-28-2022 17:00-0500 Body mass index (BMI) [Ratio] 31.11 kg/m2 Maeve Tiffanie Other [facility] Other 09-28-2022 17:00-0500 Body temperature 98.2 [degF] Maeve Tiffanie Other [facility] Other 09-28-2022 17:00-0500 Body weight 92.81 kg Maeve Moreno Other [facility] Other 09-28-2022 17:00-0500 Diastolic blood pressure 94 mm[Hg] Maeve Tiffanie Other [facility] Other 09-28-2022 17:00-0500 Respiratory rate 18 /min Maeve Tiffanie Other [facility] Other 09-28-2022 17:00-0500 SaO2% (BldA) [Mass fraction] 98 % Maeve Tiffanie Other [facility] Other 09-28-2022 17:00-0500 Systolic blood pressure 144 mm[Hg] Maeve Tiffanie Other [facility] Other 07-06-2022 17:00-0500 Body height 172.72 cm Maeve Moreno Other [facility] Other 07-06-2022 17:00-0500 Body mass index (BMI) [Ratio] 30.32 kg/m2 Maeve Moreno Other [facility] Other 07-06-2022 17:00-0500 Body temperature 97.1 [degF] Maeve Moreno Other [facility] Other 07-06-2022 17:00-0500 Body weight 90.45 kg Maeve Moreno Other [facility] Other 07-06-2022 17:00-0500 Diastolic blood pressure 87 mm[Hg] Maeve Moreno Other [facility] Other 07-06-2022 17:00-0500 Respiratory rate 18 /min Maeve Moreno Other [facility] Other 07-06-2022 17:00-0500 SaO2% (BldA) [Mass fraction] 99 % Maeve Moreno Other [facility] Other 07-06-2022 17:00-0500 Systolic blood pressure 128 mm[Hg] Maeve Moreno Other [facility] Other 03-23-2022 16:40-0400 Body height 172.72 cm Maeve Moreno Other [facility] Other 03-23-2022 16:40-0400 Body mass index (BMI) [Ratio] 30.47 kg/m2 Maeve Moreno Other [facility] Other 08-04-2022 16:40-0400 Body temperature 96.9 [degF] Maeve Moreno Other [facility] Other 03-23-2022 16:40-0400 Body weight 90.9 kg Maeve Moreno Other [facility] Other 03-23-2022 16:40-0400 Diastolic blood pressure 80 mm[Hg] Maeve Moreno Other [facility] Other 03-23-2022 16:40-0400 Respiratory rate 18 /min Maeve Moreno Other [facility] Other 03-23-2022 16:40-0400 SaO2% (BldA) [Mass fraction] 99 % Maeve Moreno Other [facility] Other 03-23-2022 16:40-0400 Systolic blood pressure 116 mm[Hg] Maeve Moreno Other [facility] Other 08-09-2021 17:00-0500 Body height 172.72 cm Maeve Moreno Other [facility] Other 08-09-2021 17:00-0500 Body mass index (BMI) [Ratio] 30.53 kg/m2 Maeve Moreno Other [facility] Other 08-09-2021 17:00-0500 Body weight 91.08 kg Maeve Moreno Other [facility] Other 08-09-2021 17:00-0500 Diastolic blood pressure 80 mm[Hg] Maeve Moreno Other [facility] Other 08-09-2021 17:00-0500 Respiratory rate 18 /min Maeve Moreno Other [facility] Other 08-09-2021 17:00-0500 SaO2% (BldA) [Mass fraction] 99 % Maeve Moreno Other [facility] Other 08-09-2021 17:00-0500 Systolic blood pressure 142 mm[Hg] Maeve Moreno Other [facility] Other Encounters Encounter Date Encounter Type Care Provider Facility Start: 01-15-2025 End: 01-15-2025 [facility] Work Phone: Start: 01-15-2025 End: 01-15-2025 Patient encounter procedure [facility] Work Phone: Start: 10-02-2024 End: 10-02-2024 ambulatory [facility] Work Phone: Start: 10-02-2024 End: 10-02-2024 Patient encounter procedure [facility] Work Phone: Start: 07-10-2024 End: 07-10-2024 ambulatory [facility] Work Phone: Start: 07-10-2024 End: 07-10-2024 Patient encounter procedure [facility] [place] Work Phone: Start: 03-27-2024 End: 03-27-2024 ambulatory [facility] Work Phone: Start: 03-27-2024 End: 03-27-2024 Patient encounter procedure [facility] Work Phone: Start: 03-20-2024 Non-patient / Non-visit [facility] Work Phone: Start: 01-10-2024 End: 01-10-2024 ambulatory [facility] Work Phone: Start: 01-10-2024 End: 01-10-2024 Patient encounter procedure [facility] Work Phone: Start: 10-11-2023 End: 10-11-2023 ambulatory [facility] Work Phone: Start: 10-11-2023 End: 10-11-2023 Patient encounter procedure [facility] Work Phone: Start: 06-28-2023 End: 06-28-2023 ambulatory Maeve Sahniashi Other [facility] Other Start: 06-28-2023 Office outpatient vi sit 15 minutes Essam Elashi [facility] Start: 06-26-2023 End: 06-26-2023 ambulatory Sekouam Elashi Other [facility] Other Start: 06-26-2023 Telephone encounter Essam Elashi [facility] Start: 05-07-2023 End: 05-07-2023 ambulatory Essam Elashi Other [facility] Other Start: 05-07-2023 Telephone encounter Essam Elashi [facility] Start: 04-05-2023 End: 04-05-2023 ambulatory Essam Elashi Other [facility] Other Start: 04-05-2023 Office outpatient vi sit 25 minutes Essam Elashi [facility] Start: 03-27-2023 End: 03-27-2023 ambulatory Essam Elashi Other [facility] Other Start: 03-27-2023 Telephone encounter Essam Elashi [facility] Start: 03-12-2023 End: 03-12-2023 ambulatory Essam Elashi Other [facility] Other Start: 03-12-2023 Telephone encounter Maeve Moreno [facility] Start: 12-21-2022 End: 12-21-2022 ambulatory Maeve Moreno Other [facility] Other Start: 12-21-2022 Office outpatient vi sit 25 minutes Sekouparam Tiffanie [facility] Start: 12-18-2022 End: 12-18-2022 ambulatory Maeve Moreno Other [facility] Other Start: 12-18-2022 Telephone encounter Sekouparam Tiffanie [facility] Start: 12-13-2022 End: 12-14-[address] MAEVE MORENO Facility:[facility] Start: 11-14-2022 End: 11-15-[address] MAREN JAMES . Facility:[facility] Start: 11-13-2022 Encounter for genera l adult medical examination without abnormal findings DR MAREN JAMES . [facility] Start: 11-10-2022 End: 11-11-[address] MAREN JAMES . Facility:[facility] Start: 11-10-2022 End: 11-11-2022 Encounter for general adult medical examination without abnormal findings DR MAREN JAMES . Facility:[facility] Start: 09-28-2022 End: 09-28-2022 ambulatory Maeve Moreno Other [facility] Other Start: 09-28-2022 Office outpatient vi sit 25 minutes Maeve Moreno [facility] Start: 09-26-2022 End: 09-27-[address] MAEVE MORENO Facility:[facility] Start: 07-06-2022 End: 07-06-2022 ambulatory Maeve Moreno Other [facility] Other Start: 07-06-2022 Office outpatient vi sit 25 minutes Maeve Moreno [facility] Start: 07-04-2022 End: 07-04-2022 ambulatory Maeve Moreno Other [facility] Other Start: 07-04-2022 Telephone encounter Maeve Moreno [facility] Start: 06-29-2022 End: 06-30-[address] MAEVE MORENO Facility:[facility] Start: 05-25-2022 End: 05-26-[address] MAEVE MORENO Facility:[facility] Start: 04-25-2022 End: 04-26-[address] MAEVE MORENO Facility:[facility] Start: 04-17-2022 End: 04-17-2022 ambulatory Maeve Moreno Other [facility] Other Start: 04-17-2022 Telephone encounter Maeve Moreno [facility] Start: 03-23-2022 End: 03-23-2022 ambulatory Maeve Moreno Other [facility] Other Start: 03-23-2022 Office outpatient vi sit 25 minutes Maeve Moreno [facility] Start: 03-22-2022 End: 03-23-[address] MAEVE MORENO Facility:[facility] Start: 02-06-2022 End: 02-07-[address] MAEVE MORENO Facility:[facility] Start: 01-13-2022 End: 01-14-[address] MAEVE MORENO [place] [employer] Other Start: 01-13-2022 Telephone encounter Maeve Moreno [facility] Start: 10-04-2021 End: 10-04-2021 ambulatory Maeve Moreno Other [facility] Other Start: 10-04-2021 Telephone encounter Maeve Moreno [facility] Start: 09-14-2021 End: 09-14-2021 ambulatory Maeve Moreno Other [facility] Other Start: 09-14-2021 Telephone encounter Maeve Moreno [facility] Start: 08-09-2021 End: 08-09-2021 ambulatory Maeve Moreno Other [facility] Other Start: 08-09-2021 Office outpatient vi sit 25 minutes Maeve Moreno [facility] Start: 07-26-2021 End: 07-26-2021 ambulatory Maeve Moreno Other [facility] Other Start: 07-26-2021 Telephone encounter Maeve Moreno [facility] Start: 09-28-2020 End: 09-28-2020 ambulatory Maeve Moreno Other [facility] Other Start: 09-28-2020 Telephone encounter Maeve DEJESUS [facility] Plan of Treatment Date Care Activity Detail Author Comprehensive metabo lic 1999 panel - Serum or Plasma [facility] C enter Comprehensive metabo lic 1999 panel - Serum or Plasma [facility] C enter Comprehensive metabo lic 1999 panel - Serum or Plasma [facility] C enter Comprehensive metabo lic 1999 panel - Serum or Plasma [facility] C enter Comprehensive metabo lic 1999 panel - Serum or Plasma [facility] C enter Comprehensive metabo lic 1999 panel - Serum or Plasma [facility] enter [facility] Payers Date Payer Category Payer Unknown [id number] 1981 Unknown [id number] 1981 Unknown [id number] 1981 Unknown [id number] 1981 Unknown [id number] 1981 Unknown [id number] 1981 Unknown [id number] 1981 Unknown [id number] 1981 Unknown [id number] 1981 Unknown [id number] 1959 Private Health Insurance [id number] Private Health Insurance [employer] [id number] Self-pay Self Pay [id number] Unknown [facility] [id number] Social History Date Type Detail Facility Unknown if ever smoked [facility] Other Sex Assigned At Sex Assigned At Bir th [facility] Other Start: 10-11-2023 End: 10-02-2024 Tobacco smoking status NHIS Never smoked tobacco (finding) [facility] Start: 1980 Sex Assigned At Female F [facility] Start: 07-10-2024 End: 01-15-2025 Sex Female (finding) [facility] Clinical Notes 09-28-2020 to 07-10-2024 [...] (autosomal dominant polycystic kidney disease) acute October 02 025 3:29pm CKD (chronic kidney disease) stage 4, GFR 15-29 ml/min acute October 02 025 3:29pm Factor V Leiden acute October 02, 2024 3:29pm Hypertensive chronic kidney disease with stage 1 through stage 4 chronic ki acute October 02 025 3:29pm [facility] Work Phone: [phone] 842-473011-09-2023 Evaluation note* Encounter Date Diagnosis Assessment Notes [...] She was informed that they may need STAFF RADIOLOGIST in near future. Will refer to transplant [...] more than 140s. She has no proteinuria. [facility] Other 09-18-2023 Evaluation note* Encounter Date Diagnosis Assessment Notes Treatment Notes Treatment Clinical Notes Apr, Polycystic dysplastic kidney (ICD-10 - Q61.3) [facility] Other 08-17-2023 Evaluation note* Encounter Date Diagnosis [...] She was informed that they may need STAFF RADIOLOGIST in near future. Will refer to transplant [...] more than 40s. She has no proteinuria. [facility] Other 05-04-2023 Evaluation note* Encounter Date Diagnosis [...] She was informed that they may need STAFF RADIOLOGIST in near future. Will refer to transplant [...] more than 140s. She has no proteinuria. [facility] Other 02-09-2023 Evaluation note* Encounter Date Diagnosis [...] She was informed that they may need STAFF RADIOLOGIST in near future. Will refer to transplant [...] to check blood pressure at my office. [facility] Other 11-17-2022 Evaluation note* Encounter Date Diagnosis [...] She was informed that they may need STAFF RADIOLOGIST in near future. Will refer to transplant [...] She has no bleeding events or hematuria. [facility] Other 08-04-2022 Evaluation note* Encounter Date Diagnosis [...] She was informed that they may need STAFF RADIOLOGIST in near future. Will refer to transplant [...] She has no bleeding events or hematuria. [facility] Other 05-27-2022 Evaluation note* Encounter Date Diagnosis Assessment Notes Treatment Notes Treatment Clinical Notes December, Polycystic dysplastic kidney (ICD-10 - Q61.3) December, CKD (chronic kidney disease) stage 2, GFR 60-89 ml/min (ICD-10 - N18.2) December, Factor V Leiden (ICD-10 - D68.51) [facility] Other 02-09-2021 Evaluation note* Encounter Date Diagnosis Assessment Notes Treatment Notes Treatment Clinical Notes Sep, Polycystic dysplastic kidney (ICD-10 - Q61.3) [facility] Other Evaluation noteNort batterii Other evaluation noteNo InformationNomissouri [facility] batterii Other Evaluation note* Diagnosis Onset Date Resolution Status 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 CKD stage G4/A3, GFR 15-29 a nd albumin creatinine ratio >300 mg/g acute Factor V Leiden acute [id number] acute [facility] Work Phone: Evaluation note* Diagnosis Onset Date Resolution Status 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 CKD stage G4/A3, GFR 15-29 a nd albumin creatinine ratio >300 mg/g acute Factor V Leiden acute [id number] acute Polycystic kidney disease no neactive 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 CKD (chronic kidney disease) stage 4, GFR 15-29 ml/min acute CKD stage G4/A3, GFR 15-29 a nd albumin creatinine ratio >300 mg/g acute Factor V Leiden acute [id number] acute Polycystic dysplastic kidney acute [facility] Work Phone: evaluation note* Diagnosis Onset Date Resolution Status Admit Date 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 Novem 2023 3:50pm CKD (chronic kidney disease) stage 4, GFR 15-29 ml/min acute Novemb 2023 3:50pm Factor V Leiden acute July 10, 2024 3:50pm Hypertensive chronic kidney disease with stage 1 through stage 4 chronic ki acute June 3:50pm [facility] Work Phone: Evaluation note* Diagnosis Onset Date Resolution Status Admit Date 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 December 192024 4:03pm CKD (chronic kidney disease) stage 4, GFR 15-29 ml/min acute January 15 4:03pm Factor V Leiden acute January 15, 2025 4:03pm Hypertensive chronic kidney disease with stage 1 through stage 4 chronic ki acute January 15, 2025 4 :03pm [facility] Work Phone: History general Narrative - [facility]No[facility] Other History general Narrative - Reported* Type Description Date Medical History PCOS Medical History previous blood clot in leg X 2 Medical History CAPILLARY HEMANGIOMA Medical History FACTOR V LEIDEN MUTATION Surgical History WISDOM TEETH X4 Hospitalization History CHILD X 2 Hospitalization History BLOOD CLOT [facility] Other History general Narrative - Reported* Type Description Date Medical History PCOS Medical History previous blood clot in leg X 2 Medical History CAPILLARY HEMANGIOMA Medical History FACTOR V LEIDEN MUTATION Surgical History WISDOM TEETH X4 Surgical History EVLT ON RIGHT LEG Hospitalization History CHILD X 2 Hospitalization History BLOOD CLOT [facility] Other Summary Purpose Family History Relationship Condition [...] creatinine ratio >300 mg/g Factor V Leiden [id number] Chief Complaint RENAL 3 MONTH F/U Reason for Visit ADPKD (autosomal dom inant polycystic kidney disease) CKD stage G4/A3, GFR 15-29 and albumin creatinine ratio >300 mg/g Factor V Leiden [id number] Chief Complaint RENAL 3 MONTH F/U RENAL 3 MONTH F/U Reason for Visit ADPKD (autosomal dom inant polycystic kidney disease) CKD stage G4/A3, GFR 15-29 and albumin creatinine ratio >300 mg/g Factor V Leiden [id number] Polycystic kidney disease ADPKD (autosomal dominant polycystic kidney disease) CKD (chronic kidney disease) stage 4, GFR 15-29 ml/min CKD stage G4/A3, GFR 15-29 and albumin creatinine ratio >300 mg/g Factor V Leiden [id number] Polycystic dysplastic kidney Chief Complaint Admit Date [...] 4 chronic ki October 02, 2024 3:29pm Chief Complaint Admit Date 3 months January 15, 2025 4:03p m Reason for Visit Admit Date ADPKD (autosomal dominant polycystic 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) January 15, 2025 4:03pm CKD (chronic kidney disease) stage 4, GF R 15-29 ml/min January 15, 2025 4:03pm Factor V Leiden January 15, 2025 4:03p m Hypertensive chronic kidney disease with stage 1 through stage 4 chronic ki January 15, 2025 4:03pm Additional Source Comments INFORMATION SOURCE (unrecogn ized section and content) DATE CREATED AUTHOR 09/06/2019 [facility] DATE CREATED AUTHOR AUTHOR'S ORGANIZ ATION [...] 2024 Team Status: Inactive Member Role Status Dates Maren James MD Primary Care Provider Active Start: [...] October 02, 2024 End: October 02, 2024 Team Status: Inactive Member Role Status Sheridan James MD Primary Care Provider Active Start: January 15, 2025 End: January 15, 2025 Maeve Moreno MD Attending Provider Active Star t: January 15, 2025 End: January 15, 2025 Goals (unrecognized section and content) Goals may [...] BE BASED ON THE PRIMARY CLINICAL RECORDS. All Copy Products [facility]. provides no warranty or guarantee of the accuracy or completeness of information in this document.
[2025-04-04 12:32] LABS: Hematocrit 41.2 % (36.0-48.0); Hemoglobin 13.4 g/dL (12.0-16.0); Mean Corpuscular HGB Conc 32.5 g/dL (29.9-35.2); Mean Corpuscular Hemoglobin 29.3 pg (26.7-34.0); Mean Corpuscular Volume 90.0 fL (81.0-99.0); Platelet Count 118 10^3/uL (150-450); Red Blood Count 4.58 10^6/uL (4.20-5.40); White Blood Count 13.6 10^3/uL (4.0-11.0)
[2025-04-04 12:49] LABS: Alanine Aminotransferase 13 U/L (14-59); Albumin Globulin Ratio 0.9; Albumin Level 3.7 g/dL (3.4-5.0); Alkaline Phosphatase 37 U/L (46-116); Anion Gap 15.6; Aspartate Amino Transferase 11 U/L (15-37); Blood Urea Nitrogen 32.0 mg/dL (7.0-18.0); Calcium 9.0 mg/dL (8.5-10.1); Carbon Dioxide 24.0 mmol/L (21.0-32.0); Chloride 107 mmol/L (98-107); Estimated GFR (African America 24 (>=60 mL/min/1.73m^2); Estimated GFR (Non-African Ame 20 (>=60 mL/min/1.73m^2); Globulin 3.9 g/dL; Glucose 135 mg/dL (74-106); Potassium 4.6 mmol/L (3.5-5.1); Sodium 142 mmol/L (136-145); Total Protein 7.6 g/dL (6.4-8.2)
== END 2025-04-04 12:14 | disposition home or self-care (01) ==
PROVIDERS: PCP Family Medicine; Visit Provider Internal Medicine Nephrology
DX: I12.9 Hypertensive chronic kidney disease with stage 1 through stage 4 chronic kidney disease, or unspecified chronic kidney disease (principal); N18.4 Chronic kidney disease, stage 4 (severe); D63.1 Anemia in chronic kidney disease; Q61.2 Polycystic kidney, adult type; N18.9 Chronic kidney disease, unspecified; N25.81 Secondary hyperparathyroidism of renal origin
CPT/HCPCS: 36415; 80053; 83970; 84100; 85027

== ENCOUNTER 2025-04-16 08:18 | Outpatient (OUT) | payer OTHER, SELFPAY ==
--- OUTSIDE RECORDS SUMMARY | 2024-08-04 13:15 | XMS_ITS ---
Author Organization [facility] in [place] Address [address] [place] [address] Care Team Providers Care Certified First Assistant Name Role Phone Jovon James Primary Care Provider Allergies Allergen (clinical drug ingredient) Drug/Non Drug Allergy documented on EMR Reaction Allergy Type Onset Date Status Substance with sulfonamide structure and antibacterial mechanism of action (substance) Sulfa Antibiotics hives Drug Allergy Active REASON FOR VISIT possible urinary tract infection- urinary urgency but not much coming out- some burning, Took OTC UTI testing and was positive, also took AZO Medications Medication SIG (Take, Route, Frequency, Duration) Notes Start Date End Date Status ZyrTEC 10 MG 1 tablet Orally Once a day Active Xarelto 20 MG TAKE 1 TABLET BY J[place] TH EVERY DAY for 90 Active Cefdinir 300 MG 2 capsule Orally onc e a day for 10 days 08/04/2024 Active Pantoprazole Sodium 40 MG TAKE 1 TABLET BY MOUTH EVERY DAY FOR 30 DAYS for 90 days Active Pyridium 200 MG 1 tablet after meals Orally Three times a day for 2 days 08/04/2024 Active Jynarque 90 & 30 MG as directed Orally Active Social History Tobacco Use: Social History Observation Description Date Details (start date - stop date) Never Smoker NA - NA Tobacco Use/Smoking Question Answer Notes Patient is a nonsmoker Problems Problem Type SNOMED Code ICD Code Onset Dates Problem Status W/U Status Risk Notes Problem Acute urinary tract infection (284508935) Acute UTI (N39.0) Active confirmed Vital Signs Blood pressure systolic 132 mm Hg 08/04/20 24 Blood pressure diastolic 88 mm Hg 024 Height 66 in 08/04/2024 Weight 204.2 lbs 08/04/2024 BMI 32.96 kg/m2 08/04/2024 Encounters Encounter Location Date Provider Diagnosis [facility] [address] [facility] [place] [address] 08/04/2024 Jovon James Acute UTI N39.0 Assessments Encounter Date Diagnosis (ICD Code) Assessment Notes Treatment Notes Treatment Clinical Notes Section Notes 08/04/2024 Acute UTI (ICD-10 - N39.0) coming abck in 2 weeks follow up in urine Plan Of Treatment Medication Medication Name Sig Start Date Stop Date Notes Cefdinir 300 MG 2 capsule Orally once a day for 10 days Pyridium 200 MG 1 tablet after meals Orally Three times a day for 2 days 08/04/2024 Treatment Notes Assessment Notes Acute UTI coming abck in 2 wee ks follow up in urine Progress Notes * PATRICIAAdrianFABIANIsabel LEDBETTER SDOB:1980 (43 yo F)Acc No.[id number]:08/04/2024 Progress Note Patient: Isabel DAVE Provider: Edwin James ([facility])MD :1980 A ge:43 Y S ex:Female Date:08/04/2024 Address:[address] [facility] Check In:05:00 PM ESTCheck O ut:05:26 PM EST Subjective: * Chief Complaints: * P ossible urinary tract infection- urinary urgency but not much coming out- some burningTook OTC UTI testing and was positive, also took AZO * HPI: G eneral: took azo - unable to do test. * ROS: E ENT: hearing changes d enies. v isual changes d enies.?non-healing mouth sores d enies. s wollen glands or neck lumps d enies. h oarseness d enies. s ore throat d enies. d ifficulty swallowing d enies. n ose bleeds d enies. n obed congestion d enies. e ar ache d enies. e ar discharge?denies. r inging in ears d enies. l ight sensitivity d enies. e ye pain d enies. b lurring d enies. e ye irritation d enies. d ouble vision d enies.?vision loss d enies. G eneral/Constitutional: Sweats: D enies. F atigue d enies. S leep problems d enies. A norexia d enies. M alaise d enies. W eight loss d enies.?Fatigue or Weakness d enies. F ever or Chills d enies. C ardiovascular: Shortness of Breath w/lying flat d enies. L ightheadedness/dizziness d enies. C hest tightness/ heavy pressure d enies. S welling of legs, ankles, or feet d enies. W aking up with shortness of breath d enies. C hest pain denies. P alpitations d enies. W eight gain d enies. R espiratory: Chronic or frequent cough d enies. C oughing up blood?denies. D ifficulty breathing d enies. P roductive cough d enies. S noring?denies. S hortness of breath that awakens from sleep (PND) d enies. C hest pain d enies. S putum production d enies. W heezing d enies. M usculoskeletal: Joint pain d enies. J oint Fluid d enies. B ack pain d enies. K nee pain d enies. N hernan pain d enies. J oint Stiffness d enies. M uscle cramps d enies. W eakness of muscles d enies. A rthritis d enies. M uscle aches d enies. P ain in shoulder(s) d enies. S wollen joints d enies. 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 , Factor V Leiden, Venous insuff, diagnosed with Chronic kidney disease, unspecified. M other: alive. B rother(s): alive, PKD, F, Factor V Leiden, diagnosed with Chronic kidney disease, unspecified. S ister(s): alive. 1 brother(s) , 1 sister(s) - healthy. 1 son(s) , 1 daughter(s) - healthy. . * Social History: T obacco Use: T obacco Use/Smoking P atient is a n onsmoker * Medications: T akingJynarque(Tolvaptan) 90 & 30 MG Tablet Therapy Pack as directed Orally Pantoprazole Sodium 40 MG Tablet Delayed Release TAKE 1 TABLET BY MOUTH EVERY DAY FOR 30 DAYS Xarelto(Rivaroxaban) 20 MG Tablet TAKE 1 TABLET BY MOUTH EVERY DAY ZyrTEC(Cetirizine HCl) 10 MG Tablet Chewable 1 tablet Orally Once a day Taking Jynarque(Tolvaptan) 90 & 30 MG Tablet Therapy Pack as directed Orally Taking Pantoprazole Sodium 40 MG Tablet Delayed Release TAKE 1 TABLET BY MOUTH EVERY DAY FOR 30 DAYS Taking Xarelto(Rivaroxaban) 20 MG Tablet TAKE 1 TABLET BY MOUTH EVERY DAY Taking ZyrTEC(Cetirizine HCl) 10 MG Tablet Chewable 1 tablet Orally Once a day DiscontinuedCefdinir 300 MG Capsule 2 tabs Orally once a day Doxycycline Monohydrate 100 MG Capsule 1 capsule Orally BID Medication List reviewed and reconciled with the patientDiscontinued Cefdinir 300 MG Capsule 2 tabs Orally once a day Discontinued Doxycycline Monohydrate 100 MG Capsule 1 capsule Orally BID Medication List reviewed and reconciled with the patient * Allergies: S ulfa Antibiotics: hivesno[Allergies Verified] Objective: * Vitals: W t:204.2lbs, Ht: 66 in, BP:132/88mm Hg, BMI:32.96Index, Ht-cm: 167.64 cm, Wt-k.62 kg. * Examination: P hysical Exam: GENERAL: w ell developed, well nourished, in no acute distress. HEAD: n ormocephalic/atraumatic. EYES: p upils equal, round and reactive to light, conjunctivae and sclerae normal. EARS: n o deformity or lesion of external ear, canals and TM appear normal bilaterally, TM's intact, not inflamed with normal light reflex, hearing grossly normal to conversational speech. NOSE: n o deformity, discharge, inflammation, or lesions.? MOUTH: m ucous membranes moist, normal oropharynx and posterior pharynx without lesions or exudates, tongue normal, dentition normal. NECK: n hernan supple, no masses or palpable cervical nodes, trachea midline, thyroid without nodules, masses, tenderness, or enlargement. CHEST: n o chest wall deformity, no chest wall tenderness.? LUNGS: n ormal respiratory effort and clear to auscultation, no wheezes, rales, or rhonchi, good air exchange. CARDIO: r egular rate and rhythm, normal S1 and S2, nor murmur, rub, or gallop. PULSES: n ormal capillary refill. ABDOMEN: s oft, non-distended, non-tender, no masses. MUSCULOSKELETAL: n o deformity or scoliosis noted, normal range of motion, joints normal, no erythema, edema, effusion, or ecchymosis. EXTREMITY: n o clubbing, cyanosis, edema, or deformity with normal ROM in both upper and lower bilateral extremities. NEUROLOGIC: g rossly normal. SKIN: n o rashes, ulcerations, or suspicious lesions. LYMPH NODES: n o cervical adenopathy, nodes normal. MENTAL STATUS: a lert and oriented x3, normal mood and affect. Assessment: * Assessment: 1. A cute UTI - N39.0 (Primary) Plan: * Treatment: * Procedure Codes: * Preventive Medicine: Screenings/Counseling: B [place] ACTION PLAN Above Normal BMI Follow-up D ietary management education, guidance, and counseling * * Sign off status: Completed Visit Status: C HK (Check Out) true * Provider: Edwin James ([facility])MD Date: 1 10/05/2023 Generated for Printi ng/Faxing/eTransmitting on: 0 04/16/2025 08:21 AM EDT History and Physical Notes * HPI (History of Present Illness) Category Sub-Category Detail Notes Category Not es General took azo - unab le to do test Examination Category Sub-Category Detail Notes Category Not es Physical Exam GENERAL: well developed, well nourished, in no acute distress HEAD: normocephalic/atraum atic EYES: pupils equal, round and reactive to light, conjunctivae and sclerae normal EARS: no deformity or lesi on of external ear, canals and TM appear normal bilaterally, TM's intact, not inflamed with normal light reflex, hearing grossly normal to conversational speech NOSE: no deformity, discha rge, inflammation, or lesions MOUTH: mucous membranes [facility], normal oropharynx and posterior pharynx without lesions or exudates, tongue normal, dentition normal NECK: neck supple, no mass es or palpable cervical nodes, trachea midline, thyroid without nodules, masses, tenderness, or enlargement CHEST: no chest wall deform ity, no chest wall tenderness LUNGS: normal respiratory e ffort and clear to auscultation, no wheezes, rales, or rhonchi, good air exchange CARDIO: regular rate and rhy thm, normal S1 and S2, nor murmur, rub, or gallop PULSES: normal capillary ref ill ABDOMEN: soft, non-distended, non-tender, no masses RECTAL: MUSCULOSKELETAL: no deformity or scol iosis noted, normal range of motion, joints normal, no erythema, edema, effusion, or ecchymosis EXTREMITY: no clubbing, cyanosi s, edema, or deformity with normal ROM in both upper and lower bilateral extremities NEUROLOGIC: grossly normal SKIN: no rashes, ulceratio ns, or suspicious lesions LYMPH NODES: no cervical adenopat hy, nodes normal MENTAL STATUS: alert and oriented x 3, normal mood and affect
--- OUTSIDE RECORDS SUMMARY | 2025-04-04 12:48 | XMS_ITS ---
Author Organization [facility] in [place] Address [address] [place] [address] Care Team Providers Care Window Shade Cutter Name Role Phone Jovon James Primary Care Provider REASON FOR VISIT Lab Results Encounters Encounter Location Date Provider Diagnosis [facility] [address] [address] 04/04/2025 Jovon James Plan Of Treatment No Information Progress Notes * Isabel BROCK SDOB:1980 (44 yo F)Acc No.[id number]:04/04/2025 Patient: Sheng Isabel KIDD :1980 A ge:44 Y S ex:Female Address:[address], [place] [address] * true * Date: Generated for Printi ng/Faxing/eTransmitting on: 0 04/16/2025 08:21 AM EDT
--- OUTSIDE RECORDS SUMMARY | 2025-04-06 06:45 | XMS_ITS ---
Author Organization [facility] in [place] Address [address] [place] [address] Care Team Providers Care Forest Nursery Worker Name Role Phone Jovon James Primary Care Provider [phone] Allergies Allergen (clinical drug ingredient) Drug/Non Drug Allergy documented on EMR Reaction Allergy Type Onset Date Status Substance with sulfonamide structure and antibacterial mechanism of action (substance) Sulfa Antibiotics hives Drug Allergy Active REASON FOR VISIT Presents to office alone to review labs., Also c/o left groin and left pelvic pain x5 days. Is starting to feel better now. Has happened several times in the past 6 months Medications Medication SIG (Take, Route, Frequency, Duration) Notes Start Date End Date Status metroNIDAZOLE 500 MG 1 tablet Orally Thr ee times a day for 10 days 04/06/2025 Active Pantoprazole Sodium 40 MG TAKE 1 TABLET BY MOUTH EVERY DAY FOR 30 DAYS for 90 days Active Jynarque 90 & 30 MG as directed Orally Active Cefdinir 300 MG 2 capsule Orally onc e a day for 10 days 08/04/2024 Active Ciprofloxacin HCl 500 MG 1 tablet Orally every 12 hrs for 10 days 04/06/2025 Active Xarelto 20 MG TAKE 1 TABLET BY [place] TH EVERY DAY for 90 Active ZyrTEC 10 MG 1 tablet Orally Once a day Active Social History Tobacco Use: Social History Observation Description Date Details (start date - stop date) Never Smoker NA - NA Tobacco Use/Smoking Question Answer Notes Patient is a nonsmoker AUDIT-C (Standard) Question Answer Notes Did you have a drink contain ing alcohol in the past year? Yes How often did you have a dri nk containing alcohol in the past year? Monthly or less (1 point) How many drinks did you have on a typical day when you were drinking in the past year? 1 or 2 drinks (0 point) How often did you have six o r more drinks on one occasion in the past year? Never (0 point) Points 1 Interpretation Negative Problems Problem Type SNOMED Code ICD Code Onset Dates Problem Status W/U Status Risk Notes Problem Left lower quadrant abdominal pain (R10.32) Active confirmed Vital Signs Blood pressure systolic 110 mm Hg 04/06/20 25 Blood pressure diastolic 80 mm Hg 025 Height 66 in 04/06/2025 Weight 182.4 lbs 04/06/2025 BMI 29.44 kg/m2 04/06/2025 Encounters Encounter Location Date Provider Diagnosis [facility] [address] [facility] [place] [place] [address] 04/06/2025 Jovon Hoy Left lower quadrant abdominal pain R10.32 Assessments Encounter Date Diagnosis (ICD Code) Assessment Notes Treatment Notes Treatment Clinical Notes Section Notes 04/06/2025 Left lower quadrant abdominal pain (ICD-10 - R10.32) Plan Of Treatment Medication Medication Name Sig Start Date Stop Date Notes metroNIDAZOLE 500 MG 1 tablet Orally Thr ee times a day for 10 days 04/06/2025 Ciprofloxacin HCl 500 MG 1 tablet Orally every 12 hrs for 10 days 04/06/2025 Pending Test Test Name Order Date US PELVIS AND TRANSVAG 04/06/2025 Progress Notes * Isabel BROCK SDOB:1980 (44 yo F)Acc No.[id number]:04/06/2025 Progress Note Patient: Isabel DAVE Provider: Edwin James ([facility])MD :1980 A ge:44 Y S ex:Female Date:04/06/2025 Address:[address] [facility] [place] [facility] Check In:10:40 AM ESTCheck O ut:11:03 AM EST Subjective: * Chief Complaints: * 1 . Presents to office alone to review labs.. 2. Also c/o left groin and left pelvic pain x5 days. Is starting to feel better now. Has happened several times in the past 6 months. * HPI: G eneral: multiple times - having left lower quadrant - not necc related to period, occ some spottin after ratiated to groin no diarrhea - no fevers - has some contipation - iralx heped but pako is still there better now but was tstarted agian 5 days ago. * ROS: E ENT: hearing changes d [...] without complications of unspecified lower extremity Modified On:03/02/2023/U Status:confirmed L03.90 Cellulitis Modified On:12/19/2023U Status:confirmed N39.0 Acute UTI Modified On:08/04/2024/U Status:confirmed R10.32 Left lower quadrant abdominal pain Modified On:04/06/2025/U Status:confirmed * Medical History: F actor V Leiden mutation, Near syncope, Polycystic kidney disease, DVT (deep venous thrombosis). * [facility] History[facility] * Family History: F ather: alive, PKD. [...] Use/Smoking P atient is a n onsmoker D rug/Alcohol: A GRISELDA-C (Standard) D id you have a drink containing alcohol in the past year? Y es H ow often did you have a drink containing alcohol in the past year? M onthly or less (1 point) H ow many drinks did you have on a typical day when you were drinking in the past year? 1 or 2 drinks (0 point) H ow often did you have six or more drinks on one occasion in the past year? N ever (0 point) P oints 1 I nterpretation N egative * Medications: T aking Cefdinir 300 MG Capsule 2 capsule Orally once a day , Taking Jynarque(Tolvaptan) 90 & 30 MG Tablet Therapy Pack as directed Orally , Taking Pantoprazole Sodium 40 MG Tablet Delayed Release TAKE 1 TABLET BY MOUTH EVERY DAY FOR 30 DAYS , Taking Xarelto(Rivaroxaban) 20 MG Tablet TAKE 1 TABLET BY MOUTH EVERY DAY , Taking ZyrTEC(Cetirizine HCl) 10 MG Tablet Chewable 1 tablet Orally Once a day , Discontinued Pyridium(Phenazopyridine HCl) 200 MG Tablet 1 tablet after meals Orally Three times a day , Medication List reviewed and reconciled with the patient * Allergies: S ulfa Antibiotics: hives. Objective: * Vitals: W t:182.4lbs, Ht: 66 in, BP:110/80mm Hg, BMI:29.44Index, Ht-cm: 167.64 cm, Wt-k.74 kg. * Examination: P hysical Exam: GENERAL: [...] gallop. PULSES: n ormal capillary refill. ABDOMEN: L eft lower quad tenderness with rebound tenderness. MUSCULOSKELETAL: n o deformity or scoliosis noted, [...] mood and affect. Assessment: * Assessment: 1. L eft lower quadrant abdominal pain - R10.32 (Primary) Plan: * Treatment: * Procedure Codes: 3 074F DIABETIC SYSTOLIC BP, 3079F DIABETIC DIASTOLIC BP * Preventive Medicine: Screenings/Counseling: B NV ACTION PLAN Above Normal BMI Follow-up D ietary management education, guidance, and counseling See treatment section of progress note for complete details of management plan. * * Sign off status: Completed Visit Status: C HK (Check Out) true * Provider: Edwin James (TTC)MD Date: 04/06/2025 Generated for Andrew pastor/Jose/eTransmitting on: 04/16/2025 08:21 AM EDT History and Physical Notes * HPI (History of Present Illness) Category Sub-Category Detail Notes Category Not es General multiple times - having left lower quadrant - not necc related to period, occ some spottin after ratiated to groin no diarrhea - no fevers - has some contipation - iralx heped but pako is still there better now but was tstarted agian 5 days ago Examination Category Sub-Category Detail Notes Category Not [...] gallop PULSES: normal capillary ref ill ABDOMEN: Left lower quad tend erness with rebound tenderness RECTAL: MUSCULOSKELETAL: no deformity or scol iosis [...]
--- NOTE | 2025-04-16 08:20 | US_ITS ---
The [address] [address] Patient Name: ISABEL BROCK MRN: [id number] date: 1980 Sex: F Assigned Patient Location: US Current Patient Location: US Accession/Order Number: [id number] Exam Date: 04/16/2025 08:25 Report Date: 04/16/2025 10:40 At the request of: MAREN ORTIZ MD Procedure: US pelvis w/ transvaginal ULTRASOUND PELVIS WITH TRANSVAGINAL CLINICAL DATA: Left lower quadrant pain COMPARISON: None Real-time ultrasound evaluation the pelvis was performed utilizing both a transabdominal and transvaginal approach. TRANSABDOMINAL: Estimated uterine size is approximately 10.8 x 4.1 x 6.9 cm. The myometrium is mildly heterogeneous. There is also focal hypoechoic mass within the uterus on the left measuring 5.4 x 5.1 x 5.7 cm suggesting a fibroid. The endometrial lining is just over a centimeter in thickness. The right ovary is not well seen though the left is identified. It measures 3.3 x 2.1 x 2.8 cm and contains a cyst measuring just over 2 cm in size. There is blood flow with resistive index of 0.59. TRANSVAGINAL: Transvaginal scans were performed to better evaluate the uterus and adnexa. By this approach, the endometrial lining is estimated at 12 - 13 mm. It contains tiny cystic areas measuring up to 4 mm. A left-sided uterine fibroid is again seen measuring up to 5.6 cm in size. The right ovary is identified measuring 3.5 x 2.0 x 2.2 cm. There are no ovarian cysts. There is documentation of ovarian blood flow with resistive index of 0.49. The left ovary is not well seen transvaginally. There is no free pelvic fluid. US/US pelvis w/ transvaginal IMPRESSION: FIBROID UTERUS. 2 CM RIGHT OVARIAN CYST. Impression dictated by: Isabel Frausto M.D. 04/16/2025 10:40 AM Dictation Location: [place] [address] Electronically authenticated by: [id number] Y Date: 04/16/2025 10:40
--- OUTSIDE RECORDS SUMMARY | 2025-04-16 08:21 | XMS_ITS | Clinical Summary ---
Author Organization [facility] Address [address] [place] [address] Care Team Providers Care Food Safety Manager Name Role Phone Maulik James MD Primary Care Provider [phone] [place] Unavailable [phone] Allergies Active Allergy Reactions Criticality Noted Date Comments Sulfamethoxazole-Trimethoprim Rash,Hives 2019 Medications rivaroxaban (XARELTO) 20 mg tablet Take 20 mg by mouth once daily. Active cetirizine (ZYRTEC) 10 mg tablet Take 10 mg by mouth once daily. Active ferrous sulfate (IRON ORAL) Take 65 mg by mouth once daily. Active Family History Medical History Relation Comments Blood Clots Brother Blood Clots Father Relation Status Comments Brother Factor Father Alive polycystic disea se Mother Alive Social History Tobacco Use Types Packs/Day Years Used Date Smoking Tobacco: Never Smokeless Tobacco: Never Alcohol Use Standard Drinks/Week Comments Yes 0 (1 standard drink = 0.6 oz pur e alcohol) Socially PHQ-2 Answer Date Recorded PHQ-2 Score 0 09/05/2019 Comments No Sex and Gender Information Value Date Recorded Sex Assigned at Not on file Legal Sex Female 8:12 AM EDT Gender Identity Not on file Sexual Orientation Not on file Last Filed Vital Signs Vital Sign Reading Time Taken Comments Blood Pressure 115/66 09/04/2019 3:57 PM EST Pulse 66 09/04/2019 3:57 PM EST Temperature 36.4 C (97.6 F) 09/04/2019 3:57 PM EST Respiratory Rate 18 09/04/2019 3:57 PM EST Oxygen Saturation 100% 09/04/2019 3:57 PM EST Inhaled Oxygen Concentration - - Weight 82.2 kg (181 lb 3.2 oz) 09/04/2019 3:57 P M EST Height 167.6 cm (5' 5.98 ) 09/04/2019 3:57 PM ES T Body Mass Index 29.26 09/04/2019 3:57 PM EST Plan of Treatment Health Maintenance Due Date Last Done Comments Anxiety Screening 11/28/1999 Depression Screening 11/28/1999 HIV Screening 11/28/1999 Hepatitis C Screening 11/28/1999 DTaP,Tdap,Td Vaccine (1 - Tdap) 2000 Hepatitis B Vaccine (1 of 3 - 19+ 3-dose series) 11/27 Cervical Cancer Screening 2002 HPV Vaccine (1 - 3-dose SCDM series) 2008 Mammogram Screening 2021 Influenza Vaccine (#1) 2025 Insurance Care Teams Food Safety Manager Relationship Specialty Start Date End Date Maulik James MD PCP - General Family Medicine 06/13/19 [address] [place] [address] [place] [address] [address] [place], [place] [id number] Referring Obstetrics 06/13/19
--- OUTSIDE RECORDS SUMMARY | 2025-04-16 08:21 | XMS_ITS | Patient Health Record ---
Author Organization [facility] in [place] Address [address] [place] [address] Care Team Providers Care Batch Blender Name Role Phone Jovon James Primary Care [...] PTH, Intact 88 15-65 pg/mL Performed at: [facility] Travel Assistant: Zen Perez PhD, Phone: [phone] [address] [place], [place] [phone] Performing Lab: see note - [facility] LB CBC no Diff (Hemogram) Reviewed date:09/24/2024 05:05:08 PM Interpretation: Performing Lab: Notes/Report: [facility] , White Blood Count 8.0 4.0-11.0 10 [...] 12.1 9.5-13.5 fL Performing Lab: see note ML - [facility] LB PHOSPHORUS Reviewed date:01/06/2025 08:17:47 PM Interpretation: Performing Lab: Notes/Report: [facility] , Phosphorus 4.9 2.6-4.7 mg/dL Performing Lab: see note - [facility] LB PROF 14(COMP METB) Reviewed date:01/06/2025 08:17:47 PM Interpretation: Performing Lab: Notes/Report: [facility] , Sodium 144 136-145 mmol/L Potassium 3.7 [...] 1.2 Performing Lab: see note ML - [facility] LB CBC no Diff (Hemogram) Reviewed date:01/06/2025 08:17:47 PM Interpretation: Performing Lab: Notes/Report: [facility] , White Blood Count 10.7 4.0-11.0 10 [...] 9.5-13.5 fL Performing Lab: see note - [facility] LB PTH, Intact Reviewed date:01/07/2025 05:49:00 PM Interpretation: Performing Lab: Notes/Report: [facility] , PTH, Intact 66 15-65 pg/mL Travel Assistant: Zen Perez PhD, Phone: [phone] [address] [place], [place] [phone] Performed at: - [facility] Performing Lab: see note - [facility] LB PHOSPHORUS Reviewed date:04/04/2025 04:49:24 PM Interpretation: Performing Lab: Notes/Report: [facility] , Phosphorus 3.5 2.6-4.7 mg/dL Performing Lab: see note - [facility] LB PROF 14(COMP METB) Reviewed date:04/04/2025 04:49:24 PM Interpretation: Performing Lab: Notes/Report: [facility] , Sodium 142 136-145 mmol/L Potassium 4.6 3.5-5.1 mmol/L Chloride 107 98-107 mmol/L Carbon Dioxide 24.0 21.0-32.0 mmol/L Anion Gap 15.6 Glucose 135 74-106 mg/dL Blood Urea Nitrogen 32.0 7.0-18.0 mg/dL Creatinine 2.66 0.55-1.02 mg/dL Estimated GFR ( Nupur 24 >=60 mL/mi n/1.73m 2 Estimated GFR (Non- Gladis 20 >=60 mL/mi n/1.73m 2 BUN Creatinine Ratio 12.0 Calcium 9.0 8.5-10.1 mg/dL Bilirubin Total 0.8 0.2-1.0 mg/dL Aspartate Amino Transferase 11 15-37 U/L Alanine Aminotransferase 13 14-59 U/L Alkaline Phosphatase 37 46-116 U/L Total Protein 7.6 6.4-8.2 g/dL Albumin Level 3.7 3.4-5.0 g/dL Globulin 3.9 Albumin Globulin Ratio 0.9 Performing Lab: see note - [facility] LB CBC no Diff (Hemogram) Reviewed date:04/04/2025 04:49:24 PM Interpretation: Performing Lab: Notes/Report: [facility] , White Blood Count 13.6 4.0-11.0 10 3/uL Red Blood Count 4.58 4.20-5.40 10 6/uL Hemoglobin 13.4 12.0-16.0 g/dL Hematocrit 41.2 36.0-48.0 % Mean Corpuscular Volume 90.0 81.0-99.0 fL Mean Corpuscular Hemoglobin 29.3 26.7-34.0 pg Mean Corpuscular HGB Conc 32.5 29.9-35.2 g/dL Red Cell Distribution Width 13.2 11.0-15.0 % Platelet Count 118 150-450 10 3/uL Mean Platelet Volume 13.1 9.5-13.5 fL Performing Lab: see note [facility] PROF CHEM 8 (BAS METB) Reviewed date:10/13/2024 08:13:35 PM Interpretation: Performing Lab: Notes/Report: [facility] , Sodium 141 136-145 mmol/L Potassium 4.0 [...] 9.1 8.5-10.1 mg/dL Performing Lab: see note [facility] LB PROF 14(COMP METB) Reviewed date:09/24/2024 05:05:08 PM Interpretation: Performing Lab: Notes/Report: [facility] , Sodium 141 136-145 mmol/L Potassium 3.7 [...] Globulin Ratio 1.1 Performing Lab: see note ML - [facility] LB PHOSPHORUS Reviewed date:09/24/2024 05:05:08 PM Interpretation: Performing Lab: Notes/Report: [facility] , Phosphorus 3.8 2.6-4.7 mg/dL Performing Lab: see note ML - [facility] LB PROF 14(COMP METB) Reviewed date:07/04/2024 06:30:20 AM Interpretation: Performing Lab: Notes/Report: [facility] , Sodium 144 136-145 mmol/L Potassium 4.5 [...] Ratio 1.2 Performing Lab: see note - [facility] LB PHOSPHORUS Reviewed date:07/04/2024 06:30:20 AM Interpretation: Performing Lab: Notes/Report: [facility] , Phosphorus 4.6 2.6-4.7 mg/dL Performing Lab: see note - [facility] LB PTH, Intact Reviewed date:04/05/2025 01:20:20 PM Interpretation: Performing Lab: Notes/Report: [facility] , PTH, Intact 112 15-65 pg/mL Travel Assistant: Zen Perez PhD, Phone: [phone] [address] [place] [phone] Performed at: [facility] Performing Lab: see note [facility] PTH, Intact Reviewed date:09/25/2024 12:50:08 PM Interpretation: Performing Lab: Notes/Report: [facility] , PTH, Intact 137 15-65 pg/mL Travel Assistant: Zen Perez PhD, Phone: [phone] Performed at: [employer] [id number] Performing Lab: see note [facility] LB Reason For Referral No Information Medications [...] Weekly (3 points) Points 4 Interpretation Positive AUDIT-C (Standard) Question Answer Notes Did you [...] Problem Status W/U Status Risk Notes Problem [id number] Chronic venous hypertension (idiopathic) without complications of unspecified lower extremity (I87.309) Active confirmed Problem Factor V Leiden mutation (072590025) Factor V Leiden mutation (D68.51) Active confirmed Problem Pain in left leg (333875553) Left leg pain (M79.605) Active confirmed Problem Cellulitis (861084639) Cellulitis (L03.90) Active confirmed Problem Polycystic kidney disease (48638330) Polycystic kidney disease (Q61.3) Active confirmed Problem Acute urinary tract infection (186908247) Acute UTI (N39.0) Active confirmed Problem Left lower quadrant pain (032041479) Left lower quadrant abdominal pain (R10.32) Active confirmed Vital Signs Blood pressure diastolic 80 mm Hg 04/06/2025 Height 66 in 04/06/2025 Blood pressure systolic 110 mm Hg 04/06/2025 Weight 182.4 lbs 04/06/2025 BMI 29.44 kg/m2 04/06/2025 Encounters Encounter Location Date Provider Diagnosis [facility] [address] [place] [address] 08/04/2024 Jovon Hoy Acute UTI N39.0 [facility] [address] [place] [address] 04/06/2025 Jovon Hoy Left lower quadrant abdominal pain R10.32 [place] [address] [facility] [place] [address] 04/04/2025 Jovon James Assessments Encounter Date Diagnosis (ICD Code) Assessment Notes Treatment Notes Treatment Clinical Notes Section Notes 08/04/2024 Acute UTI (ICD-10 - N39.0) coming abck in 2 weeks follow up in urine 04/06/2025 Left lower quadrant abdominal pain (ICD-10 - R10.32) Plan Of Treatment Pending Test Test Name Order Date CMP (COMPLETE METABOLIC PANEL) 4 HEMOGLOBIN A1C (GLYCO) 01/18/2024 IRON, TOTAL 01/18/2024 LIPID PANEL (CHOL/TRIG/HDL/LDL) 01/18/20 CBC WITH DIFF 01/18/2024 US Lower Extremity LT 02/09/2023 STOOL OCCULT BLOOD 01/18/2024 US PELVIS AND TRANSVAG 04/06/2025 THYROID PANEL (T4/TSH/FREE T3) 4 Insurance Providers Payer Name Payer Address Payer Phone Subscriber Number Group Number Insured Name Patient Relationship to Insured Coverage Start Date Coverage End Date [employer] [place] [address] [place] [address] [id number] Alfa [place] Spouse - patient is the spouse of the insured Medications Administered Medication Instructions Date of Administration Dosage Notes Ceftriaxone 1 gram 12/19/2023 1 g 1 gram Medical (General) History Medical History History ICD Code Factor V Leiden mutation D68.51 Near syncope R55 Polycystic kidney disease Q61.3 DVT (deep venous thrombosis) I82.409 Surgical History Surgery Date(Month/Year) VC INJ foam sclerosant [facility] 07/12
--- OUTSIDE RECORDS SUMMARY | 2025-04-16 08:23 | XMS_ITS | CCD ---
Author Organization [facility] CliniSyct Care Team Providers Care Functional Tester Typewriters Name Role Phone Maeve Moreno Unavailable DR MAEVE MORENO Admitting Unavailable TIFFANIE, DR MCFARLANE Consulting Unavailable ANGEL Ramachandran, DR ENGEL Primary Care Unavailable TIFFANIE, DR MCFARLANE Attending Unavailable TIFFANIE, DR MCFARLANE Consulting Unavailable TIFFANIE, DR MCFARLANE Attending Unavailable TIFFANIE, DR MCFARLANE Admitting Unavailable DR MAREN GONZALEZ Primary Care Unavailable TIFFANIE, DR MCFARLANE Consulting Unavailable TIFFANIE, DR MCFARLANE Attending Unavailable DR MAREN OGNZALEZ Primary Care Unavailable TIFFANIE, DR MCFARLANE Admitting Unavailable TIFFANIE, DR MCFARLANE Consulting Unavailable TIFFANIE, DR MCFARLANE Attending Unavailable DR MAREN GONZALEZ Primary Care Unavailable TIFFANIE, DR MCFARLANE Admitting Unavailable TIFFANIE, DR MCFARLANE Consulting Unavailable TIFFANIE, DR MCFARLANE Attending Unavailable DR MAREN GONZALEZ Primary Care Unavailable TIFFANIE, DR MCFARLANE Admitting Unavailable ANGEL ., DR ENGEL Consulting Unavailable ANGEL ., DR ENGEL Attending Unavailable ANGEL ., DR ENGEL Admitting Unavailable DR MAREN GONZALEZ Primary Care Unavailable ANGEL .DR ENGEL Consulting Unavailable ANGEL ., DR ENGEL Attending Unavailable ANGEL ., DR ENGEL Admitting Unavailable ANGEL .DR ENGEL Primary Care Unavailable DR JONATHON WYATT Consulting Unavailable TIFFANIE, DR MCFARLANE Consulting Unavailable DR MAEVE MORENO Attending Unavailable DR MAREN GONZALEZ Primary Care Unavailable DR MAEVE MORENO Admitting Unavailable TIFFANIE, DR MCFARLANE Consulting Unavailable DR MAEVE MORENO Attending Unavailable DR MAREN GONZALEZ Primary Care Unavailable DR MAEVE MORENO Admitting Unavailable TIFFANIE, DR MCFARLANE Admitting Unavailable DR MAEVE MORENO Consulting Unavailable DR MAREN GONZALEZ Primary Care Unavailable TIFFANIE, DR MCFARLANE Attending Unavailable Maren James MD Primary Care Provider [phone] Maeve Moreno MD Attending Provider [phone] Allergies Allergy Classification Reported Allergen(s) Allergy Type Date of Onset Reaction(s) Facility (19 sources) Sulfonamides (Antibiotic) Propensity to adverse reactions rash [employer] Other Medications Current Medications Medication Drug Class(es) [...] Status: Taking; Provider: Tiffanie Mcfarlane ( ) Complies with drug therapy take 1 tablet by mouth once abdiel y ZyrTEC Allergy 10 MG 1 tablet on the tongue and allow to dissolve Orally Once a day Active pantoprazole 40 mg delayed release oral tablet (13 sources) Proton Pump Inhibitor Start: 10-11-2023 End: 03-27-2024 take 1 tablet by mouth once daily Pantoprazole 40 mg tablet,delayed release (DR/EC) Active 40 MG PO Daily March 27, 2024 4:26pm Complies with drug therapy Start: 10-11-2023 End: 03-27-2024 Pantoprazole Discontinued MG [...] Note: Source Status: Taking; Provider: Tiffanie Richardson Complies with drug therapy take 1 tablet by alejandro th every twenty-four hours Xarelto 20 MG 1 tablet with food Orally Once a day Active tolvaptan 60 mg oral tablet (20 sources) Vasopressin V2 Receptor Antagonist Start: 01-15-2025 End: 02-12-2025 Tolvaptan (Polycys Kidney Dis) 60 mg (AM)/ 30 mg (PM) tablets, sequential Active 0 PO per package directions February 12, 2025 10:47am PO PER PKG DIR Complies with drug therapy Start: 07-10-2024 End: 01-15-2025 Tolvaptan (Polycys Kidney [...] mg (PM) tablets, sequential Discontinued 0 .ROUTE .[facility] June 04, 2024 4:44pm July 10, 2024 5:33pm TAKE ONE 90MG TABLET BY MOUTH UPON AWAKING, AND ONE 30MG TABLET BY MOUTH 8 HOURS LATER Start: 06-04-2024 End: 07-10-2024 take 1 tablet by mouth every eight hours in the morning Tolvaptan (Polycys Kidney Dis) (Jynarque) 90 mg (AM)/ 30 mg (PM) tablets, sequential Discontinued 0 .ROUTE .[facility] June 04, 2024 3:44pm July 10, 2024 4:33pm TAKE ONE 90MG TABLET BY MOUTH UPON AWAKING, AND ONE 30MG TABLET BY MOUTH 8 HOURS LATER Start: 04-07-2024 End: 06-04-2024 take 1 tablet by mouth every eight hours in the morning Tolvaptan (Polycys Kidney Dis) (Jynarque) 90 mg (AM)/ 30 mg (PM) tablets, sequential Discontinued 0 .ROUTE .[facility] April 07, 2024 11:41am June 04, 2024 4:45pm TAKE ONE 90 MG TABLET BY MOUTH UPON WAKING, THEN TAKE ONE 30 MG TABLET BY MOUTH 8 HOURS LATER EVERY DAY Start: 04-07-2024 End: 06-04-2024 take 1 tablet by mouth every eight hours in the morning Tolvaptan (Polycys Kidney Dis) (Jynarque) 90 mg (AM)/ 30 mg (PM) tablets, sequential Discontinued 0 .ROUTE .[facility] April 07, 2024 10:41am June 04, 2024 [...] (PM) tablets, sequential Discontinued 0 .ROUTE .[facility] 56 April 06, 2024 8:31am April 07, 2024 10:41am TAKE ONE 90 MG TABLET BY MOUTH UPON WAKING, THEN TAKE ONE 30 MG TABLET BY MOUTH 8 HOURS LATER EVERY DAY Start: 10-11-2023 End: 04-06-2024 Tolvaptan (Polycys Kidney Di s) (Jynarque) 90 mg (AM)/ 30 mg (PM) tablets, sequential Discontinued 0 PO per package directions 56 90 December 23, 2023 11:04pm April 06, 2024 [...] She was informed that they may need EDITOR DEPARTMENT in near future. Will refer to transplant evaluation once GFR < 20 ml/min. She does not have a donor. 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 Jessica Mosqueda HEMOGRAM AND PLATELon 2022 Hematocrit (Bld) [Volume fraction] 41.0 % Normal 36.0-48.0 [facility] Comment on above: Performed By: #### H H #### [facility] [address] [place] [address] Dr. Jessica Mosqueda Hemoglobin (Bld) [Mass/Vol] 13.0 g/dL Normal 12.0-16.0 [facility] Comment on above: Performed By: #### H H #### [facility] [address] [place] [address] Dr. Jessica Mosqueda MCH (RBC) [Entitic mass] 28.6 pg Normal 26.7-34.0 [facility] Comment on above: Performed By: #### H H #### [facility] [address] [place] [address] Dr. Jessica Mosqueda MCHC (RBC) [Mass/Vol] 31.7 g/dL Normal 29.9-35.2 [facility] Comment on above: Performed By: #### H H #### [facility] [address] [place] [address] Dr. Jessica Mosqueda MCV (RBC) [Entitic vol] 90.3 fL Normal 81.0-99.0 [facility] Comment on above: Performed By: #### H H #### [facility] [address] [place] [address] Dr. Jessica Mosqueda PLT 133 103/ul Critically low 150-450 [facility] Comment on above: Performed By: #### H H #### [facility] [address] [place] [address] Dr. Jessica Mosqueda RBC 4.54 106/ul Normal 4.20-5.40 [facility] Comment on above: Performed By: #### H H #### [facility] [address] [place] [address] Dr. Jessica Mosqueda WBC 9.0 103/ul Normal 4.0-11.0 [facility] Comment on above: Performed By: #### H H #### [facility] [address] [place] [address] Dr. Jessica Mosqueda PHOSPHORUSon 12-13-2022 Phosphate [Mass/Vol] 4.3 mg/dL Normal 2.6-4.7 [facility] Comment on above: Performed By: #### P THINT #### [facility] [address] [place] [address] Dr. Jessica Mosqueda PROF 14(COMP METB)on 023 Albumin [Mass/Vol] 3.8 g/dL Normal 3.4-5.0 [facility] Comment on above: Performed By: #### P THINT #### [facility] [address] [place] [address] Dr. Jessica Mosqueda Albumin/Globulin [Mass ratio] 1.1 {ratio} Normal [facility] Comment on above: Performed By: #### P THINT #### [facility] [address] [place] [address] Dr. Jessica Mosqueda ALP [Catalytic activity/Vol] 36 U/L Critically low 46-116 [facility] Comment on above: Performed By: #### P THINT #### [facility] [address] [place] [address] Dr. Jessica Mosqueda ALT [Catalytic activity/Vol] 14 U/L Normal 14-59 [facility] Comment on above: Performed By: #### P THINT #### [facility] [address] [place] [address] Dr. Jessica Mosqueda Anion gap [Moles/Vol] 11.9 mmol/L Normal [facility] Comment on above: Performed By: #### P THINT #### [facility] [address] [place] [address] Dr. Jessica Mosqueda AST [Catalytic activity/Vol] 13 U/L Critically low 15-37 [facility] Comment on above: Performed By: #### P THINT #### [facility] [address] [address] [address] Jessica Mosqueda Bilirubin [Mass/Vol] 0.3 mg/dL Normal 0.2-1.0 [facility] Comment on above: Performed By: #### P THINT #### [facility] [address] [address] [address] Jessica Mosqueda Calcium [Mass/Vol] 9.0 mg/dL Normal 8.5-10.1 [facility] Comment on above: Performed By: #### P THINT #### [facility] [address] [address] [address] Jessica Mosqueda Chloride [Moles/Vol] 107 mmol/L Normal 98-107 [facility] Comment on above: Performed By: #### P THINT #### [facility] [address] [address] [address] Jessica Mosqueda CO2 [Moles/Vol] 28.1 mmol/L Normal 21.0-32.0 [facility] Comment on above: Performed By: #### P THINT #### [facility] [address] [address] [address] Jessica Mosqueda Creatinine [Mass/Vol] 2.10 mg/dL Critically high 0.55-1.02 [facility] Comment on above: Performed By: #### P THINT #### [facility] [address] [address] [address] Jessica Mosqueda EGFR-AF ECUADOREAN 31 mL/min/1.73m2 Critically low >=60 [facility] Comment on above: Performed By: #### P THINT #### [facility] [address] [address] [address] Jessica Mosqueda EGFR-NON AF ECUADOREAN 26 mL/min/1.73m2 Critically low >=60 [facility] Comment on above: Performed By: #### P THINT #### [facility] [address] [address] [address] Jessica Mosqueda Globulin (S) [Mass/Vol] 3.6 g/dL Normal [facility] Comment on above: Performed By: #### P THINT #### [facility] [address] [address] [address] Jessica Mosqueda Glucose [Mass/Vol] 82 mg/dL Normal 74-106 [facility] Comment on above: Performed By: #### P THINT #### [facility] [address] [address] [address] Jessica Mosqueda Potassium [Moles/Vol] 4.0 mmol/L Normal 3.5-5.1 [facility] Comment on above: Performed By: #### P THINT #### [facility] [address] [address] [address] Jessica Mosqueda Protein [Mass/Vol] 7.4 g/dL Normal 6.4-8.2 [facility] Comment on above: Performed By: #### P THINT #### [facility] [address] [address] [address] Jessica Mosqueda Sodium [Moles/Vol] 143 mmol/L Normal 136-145 [facility] Comment on above: Performed By: #### P THINT #### [facility] [address] [address] [address] Jessica Mosqueda Urea nitrogen [Mass/Vol] 23.0 mg/dL Critically high 7.0-18.0 [facility] Comment on above: Performed By: #### P THINT #### [facility] [address] [address] [address] Jessica Mosqueda Urea nitrogen/Creatinine [Mass ratio] 11.0 mg/mg Normal [facility] Comment on above: Performed By: #### P THINT #### [facility] [address] [address] [address] Jessica Mosqueda MG MAMM SCREEN 3D MATILDA CADon 11-14-2022 MG MAMM SCREEN 3D MATILDA CAD Patient: ISABEL RIVERA Exam Date: 11/14/2022 : 1980 Gender:F Ordering : DR MAREN JAMES . Admission #: [id number] Family : Order #: [id number] CLICK HERE TO VIEW EXAM RADIOLOGY REPORT [...] unknown cancer at age 51. LOCATION: [facility] BREAST COMPOSITION: Extremely dense, which lowers [...] M.D. on 11/15/2022 at 07:51 Normal [facility] INSULINon 11-11-2022 Insulin 7.2 uIU/mL Normal 2.6-24.9 [facility] Comment on above: Performed By: #### I NSULIN #### [facility] [address] [address] [address] Jessica Mosqueda CBC AUTO DIFFon 11-10-2022 BASO # 0.0 103/ul Normal 0.0-0.1 [facility] Comment on above: Performed By: #### L IPID, CMP, TSH, T7 #### [facility] [address] [address] [address] Jessica Mosqueda Basophils/100 WBC (Bld) 0.5 % Normal 0.2-2.0 [facility] Comment on above: Performed By: #### L IPID, CMP, TSH, T7 #### [facility] [address] [address] [address] Jessica Mosqueda EO # 0.3 103/ul Normal 0.0-0.7 [facility] Comment on above: Performed By: #### L IPID, CMP, TSH, T7 #### [facility] [address] [address] [address] Jessica Mosqueda Eosinophils/100 WBC (Bld) 3.6 % Normal 0.9-7.0 [facility] Comment on above: Performed By: #### L IPID, CMP, TSH, T7 #### [facility] [address] [place] [address] Dr. Jessica Mosqueda Erythrocyte distribution width (RBC) [Ratio] 13.2 % Normal 11.0-15.0 [facility] Comment on above: Performed By: #### L IPID, CMP, TSH, T7 #### [facility] [address] [place] [address] Dr. Jessica Mosqueda Hematocrit (Bld) [Volume fraction] 41.9 % Normal 36.0-48.0 [facility] Comment on above: Performed By: #### L IPID, CMP, TSH, T7 #### [facility] [address] [place] [address] Dr. Jessica Mosqueda Hemoglobin (Bld) [Mass/Vol] 13.3 g/dL Normal 12.0-16.0 [facility] Comment on above: Performed By: #### L IPID, CMP, TSH, T7 #### [facility] [address] [place] [address] Dr. Jessica Mosqueda IG # 0.02 10e3/ul Normal 0.00-0.03 [facility] Comment on above: Performed By: #### L IPID, CMP, TSH, T7 #### [facility] [address] [place] [address] Dr. Jessica Mosqueda IG % 0.3 % Normal 0.0-0.5 [facility] Comment on above: Performed By: #### L IPID, CMP, TSH, T7 #### [facility] [address] [place] [address] Dr. Jessica Mosqueda LYMPH # 2.2 103/ul Normal 1.2-3.8 [facility] Comment on above: Performed By: #### L IPID, CMP, TSH, T7 #### [facility] [address] [place] [address] Dr. Jessica Mosqueda Lymphocytes/100 WBC (Bld) 29.6 % Normal 20.5-60.0 [facility] Comment on above: Performed By: #### L IPID, CMP, TSH, T7 #### [facility] [address] [address] [address] Jessica Mosqueda MANUAL DIFF REQ NO Normal [facility] Comment on above: Performed By: #### L IPID, CMP, TSH, T7 #### [facility] [address] [place] [address] Dr. Jessica Mosqueda MCH (RBC) [Entitic mass] 28.9 pg Normal 26.7-34.0 [facility] Comment on above: Performed By: #### L IPID, CMP, TSH, T7 #### [facility] [address] [address] [address] Jessica Mosqueda MCHC (RBC) [Mass/Vol] 31.7 g/dL Normal 29.9-35.2 [facility] Comment on above: Performed By: #### L IPID, CMP, TSH, T7 #### [facility] [address] [address] [address] Jessica Mosqueda MCV (RBC) [Entitic vol] 91.1 fL Normal 81.0-99.0 [facility] Comment on above: Performed By: #### L IPID, CMP, TSH, T7 #### [facility] [address] [place] [address] Dr. Jessica Mosqueda MONO # 0.5 103/ul Normal 0.3-0.8 [facility] Comment on above: Performed By: #### L IPID, CMP, TSH, T7 #### [facility] [address] [place] [address] Dr. Jessica Mosqueda Monocytes/100 WBC (Bld) 6.1 % Normal 1.7-12.0 [facility] Comment on above: Performed By: #### L IPID, CMP, TSH, T7 #### [facility] [address] [place] [address] Dr. Jessica Mosqueda NEUT # 4.4 103/ul Normal 1.4-6.5 [facility] Comment on above: Performed By: #### L IPID, CMP, TSH, T7 #### [facility] [address] [address] [address] Jessica Mosqueda Neutrophils/100 WBC (Bld) 59.9 % Normal 43.0-75.0 [facility] Comment on above: Performed By: #### L IPID, CMP, TSH, T7 #### [facility] [address] [address] [address] Jessica Mosqueda Platelet mean volume (Bld) [Entitic vol] 12.5 fL Normal 9.5-13.5 [facility] Comment on above: Performed By: #### L IPID, CMP, TSH, T7 #### [facility] [address] [address] [address] Jessica Mosqueda PLT 157 103/ul Normal 150-450 [facility] Comment on above: Performed By: #### L IPID, CMP, TSH, T7 #### [facility] [address] [place] [address] Dr. Jessica Mosqueda RBC 4.60 106/ul Normal 4.20-5.40 [facility] Comment on above: Performed By: #### L IPID, CMP, TSH, T7 #### [facility] [address] [address] [address] Jessica Mosqueda WBC 7.3 103/ul Normal 4.0-11.0 [facility] Comment on above: Performed By: #### L IPID, CMP, TSH, T7 #### [facility] [address] [address] [address] Jessica Mosqueda FREE THYROXINE INDEX T7on FTI 2.51 Normal 1.30-4.50 [facility] Comment on above: Performed By: #### L IPID, CMP, TSH, T7 #### [facility] [address] [place] [address] Dr. Jessica Mosqueda T3U 38.0 % Normal 30.0-39.0 [facility] Comment on above: Performed By: #### L IPID, CMP, TSH, T7 #### [facility] [address] [address] [address] Jessica Mosqueda T4 [Mass/Vol] 6.60 ug/dL Normal 4.80-13.90 [facility] Comment on above: Performed By: #### L IPID, CMP, TSH, T7 #### [facility] [address] [address] [address] Jessica Mosqueda GLYCOHEMOGLOBIN A1Con 2022 ADA RECOMMENDATION SEE BELOW Normal [facility] Comment on above: Result Comment: ADA RECOMMENDED LIMIT 4.0 - 6.0 ADA THERAPEUTIC TARGET < 7.0 ACTION SUGGESTED > 7.0 Performed By: #### P THINT #### [facility] [address] [address] [address] Jessica Mosqueda Glucose [Mass/Vol] 111 mg/dL Normal [facility] Comment on above: Performed By: #### P THINT #### [facility] [address] [place] [address] Dr. Jessica Mosqueda HbA1c (Bld) [Mass fraction] 5.5 % Normal 4.5-6.2 [facility] Comment on above: Performed By: #### P THINT #### [facility] [address] [address] [address] Jessica Mosqueda IRONon 11-10-2022 Iron [Mass/Vol] 58.0 ug/dL Normal 50.0-170.0 [facility] Comment on above: Performed By: #### P THINT #### [facility] [address] [place] [address] Dr. Jessica Mosqueda LIPID PROFILEon 11-10-2022 CHOL-HDL RATIO NORM SEE BELOW Normal [facility] Comment on above: Result Comment: 3.3 - 4.4 LOW RISK 4.4 - 7.1 AVERAGE RISK 7.1 - 11.0 MODERATE RISK >11.0 HIGH RISK Performed By: #### L IPID, CMP, TSH, T7 #### [facility] [address] [address] [address] Jessica Mosqueda Cholesterol [Mass/Vol] 205 mg/dL Critically high <=200 [facility] Comment on above: Performed By: #### L IPID, CMP, TSH, T7 #### [facility] [address] [address] [address] Jessica Mosqueda Cholesterol in HDL [Mass/Vol] 60 mg/dL Normal 40-60 [facility] Comment on above: Performed By: #### L IPID, CMP, TSH, T7 #### [facility] [address] [address] [address] Jessica Mosqueda Cholesterol in LDL [Mass/Vol] 127.4 mg/dL Normal [facility] Comment on above: Performed By: #### L IPID, CMP, TSH, T7 #### [facility] [address] [address] [address] Jessica Mosqueda Cholesterol.total/Cho lesterol in HDL [Mass ratio] 3.4 {ratio} Normal [facility] Comment on above: Performed By: #### L IPID, CMP, TSH, T7 #### [facility] [address] [address] [address] Jessica Mosqueda HDL NORMAL > or = 60 mg/dl - LOW CARDIOVASCULAR RISK <40 mg/dl - HIGH CARDIOVASCULAR RISK Normal [facility] Comment on above: Performed By: #### L IPID, CMP, TSH, T7 #### [facility] [address] [address] [address] Jessica Mosqueda LDL CALC NORMAL SEE BELOW Normal [facility] Comment on above: Result Comment: <100 mg/dl OPTIMAL 100 - 129 mg/dl NEAR OR ABOVE OPTIMAL 130 - 159 mg/dl BORDERLINE HIGH 160 - 189 mg/dl HIGH >190 mg/dl VERY HIGH Performed By: #### L IPID, CMP, TSH, T7 #### [facility] [address] [address] [address] Jessica Mosqueda Triglyceride [Mass/Vol] 88 mg/dL Normal <=150 [facility] Comment on above: Performed By: #### L IPID, CMP, TSH, T7 #### [facility] [address] [address] [address] Jessica Mosqueda VLDL CALC 17.6 mg/dL Normal [facility] Comment on above: Performed By: #### L IPID, CMP, TSH, T7 #### [facility] [address] [address] [address] Jessica Mosqueda PROF 14(COMP METB)on 023 Albumin [Mass/Vol] 3.8 g/dL Normal 3.4-5.0 [facility] Comment on above: Performed By: #### L IPID, CMP, TSH, T7 #### [facility] [address] [address] [address] Jessica Mosqueda Albumin/Globulin [Mass ratio] 1.1 {ratio} Normal [facility] Comment on above: Performed By: #### L IPID, CMP, TSH, T7 #### [facility] [address] [address] [address] Jessica Mosqueda ALP [Catalytic activity/Vol] 37 U/L Critically low 46-116 [facility] Comment on above: Performed By: #### L IPID, CMP, TSH, T7 #### [facility] [address] [place] [address] Dr. Jessica Mosqueda ALT [Catalytic activity/Vol] 16 U/L Normal 14-59 [facility] Comment on above: Performed By: #### L IPID, CMP, TSH, T7 #### [facility] [address] [address] [address] Jessica Mosqueda Anion gap [Moles/Vol] 13.7 mmol/L Normal [facility] Comment on above: Performed By: #### L IPID, CMP, TSH, T7 #### [facility] [address] [address] [address] Jessica Mosqueda AST [Catalytic activity/Vol] 14 U/L Critically low 15-37 [facility] Comment on above: Performed By: #### L IPID, CMP, TSH, T7 #### [facility] [address] [address] [address] Jessica Mosqueda Bilirubin [Mass/Vol] 0.4 mg/dL Normal 0.2-1.0 [facility] Comment on above: Performed By: #### L IPID, CMP, TSH, T7 #### [facility] [address] [address] [address] Jessica Mosqueda Calcium [Mass/Vol] 9.6 mg/dL Normal 8.5-10.1 [facility] Comment on above: Performed By: #### L IPID, CMP, TSH, T7 #### [facility] [address] [address] [address] Jessica Mosqueda Chloride [Moles/Vol] 107 mmol/L Normal 98-107 [facility] Comment on above: Performed By: #### L IPID, CMP, TSH, T7 #### [facility] [address] [address] [address] Jessica Mosqueda CO2 [Moles/Vol] 27.5 mmol/L Normal 21.0-32.0 [facility] Comment on above: Performed By: #### L IPID, CMP, TSH, T7 #### [facility] [address] [place] [address] Dr. Jessica Mosqueda Creatinine [Mass/Vol] 1.74 mg/dL Critically high 0.55-1.02 [facility] Comment on above: Performed By: #### L IPID, CMP, TSH, T7 #### [facility] [address] [address] [address] Jessica Mosqueda EGFR-AF ECUADOREAN 39 mL/min/1.73m2 Critically low >=60 [facility] Comment on above: Performed By: #### L IPID, CMP, TSH, T7 #### [facility] [address] [address] [address] Jessica Mosqueda EGFR-NON AF ECUADOREAN 32 mL/min/1.73m2 Critically low >=60 [facility] Comment on above: Performed By: #### L IPID, CMP, TSH, T7 #### [facility] [address] [address] [address] Jessica Mosqueda Globulin (S) [Mass/Vol] 3.4 g/dL Normal [facility] Comment on above: Performed By: #### L IPID, CMP, TSH, T7 #### [facility] [address] [address] [address] Jessica Mosqueda Glucose [Mass/Vol] 95 mg/dL Normal 74-106 [facility] Comment on above: Performed By: #### L IPID, CMP, TSH, T7 #### [facility] [address] [place] [address] Dr. Jessica Mosqueda Potassium [Moles/Vol] 4.2 mmol/L Normal 3.5-5.1 [facility] Comment on above: Performed By: #### L IPID, CMP, TSH, T7 #### [facility] [address] [place] [address] Dr. Jessica Mosqueda Protein [Mass/Vol] 7.2 g/dL Normal 6.4-8.2 [facility] Comment on above: Performed By: #### L IPID, CMP, TSH, T7 #### [facility] [address] [place] [address] Dr. Jessica Mosqueda Sodium [Moles/Vol] 144 mmol/L Normal 136-145 [facility] Comment on above: Performed By: #### L IPID, CMP, TSH, T7 #### [facility] [address] [place] [address] Dr. Jessica Mosqueda Urea nitrogen [Mass/Vol] 25.0 mg/dL Critically high 7.0-18.0 [facility] Comment on above: Performed By: #### L IPID, CMP, TSH, T7 #### [facility] [address] [place] [address] Dr. Jessica Mosqueda Urea nitrogen/Creatinine [Mass ratio] 14.4 mg/mg Normal [facility] Comment on above: Performed By: #### L IPID, CMP, TSH, T7 #### [facility] [address] [place] [address] Dr. Jessica Mosqueda TSHon 11-10-2022 TSH 1.244 uIU/mL Normal 0.358-3.740 [facility] Comment on above: Performed By: #### L IPID, CMP, TSH, T7 #### [facility] [address] [place] [address] Dr. Jessica Mosqueda PTH INTACTon 09-28-2022 PTH, Intact 43 pg/mL Normal 15-65 [facility] Comment on above: Performed By: #### L IPID, CMP, TSH, T7 #### [facility] [address] [address] [address] Jessica Mosqueda HEMOGRAM AND PLATELon 2022 Hematocrit (Bld) [Volume fraction] 39.0 % Normal 36.0-48.0 [facility] Comment on above: Performed By: #### H H #### [facility] [address] [place] [address] Dr. Jessica Mosqueda Hemoglobin (Bld) [Mass/Vol] 12.3 g/dL Normal 12.0-16.0 [facility] Comment on above: Performed By: #### H H #### [facility] [address] [place] [address] Dr. Jessica Mosqueda MCH (RBC) [Entitic mass] 29.1 pg Normal 26.7-34.0 [facility] Comment on above: Performed By: #### H H #### [facility] [address] [place] [address] Dr. Jessica Mosqueda MCHC (RBC) [Mass/Vol] 31.5 g/dL Normal 29.9-35.2 [facility] Comment on above: Performed By: #### H H #### [facility] [address] [place] [address] Dr. Jessica Mosqueda MCV (RBC) [Entitic vol] 92.4 fL Normal 81.0-99.0 [facility] Comment on above: Performed By: #### H H #### [facility] [address] [place] [address] Dr. Jessica Mosqueda PLT 131 103/ul Critically low 150-450 [facility] Comment on above: Performed By: #### H H #### [facility] [address] [place] [address] Dr. Jessica Mosqueda RBC 4.22 106/ul Normal 4.20-5.40 [facility] Comment on above: Performed By: #### H H #### [facility] [address] [place] [address] Dr. Jessica Mosqueda WBC 8.6 103/ul Normal 4.0-11.0 [facility] Comment on above: Performed By: #### H H #### [facility] [address] [place] [address] Dr. Jessica Mosqueda PHOSPHORUSon 09-26-2022 Phosphate [Mass/Vol] 4.3 mg/dL Normal 2.6-4.7 [facility] Comment on above: Performed By: #### P THINT #### [facility] [address] [place] [address] Dr. Jessica Mosqueda PROF 14(COMP METB)on 023 Albumin [Mass/Vol] 3.9 g/dL Normal 3.4-5.0 [facility] Comment on above: Performed By: #### P THINT #### [facility] [address] [place] [address] Dr. Jessica Mosqueda Albumin/Globulin [Mass ratio] 1.1 {ratio} Normal [facility] Comment on above: Performed By: #### P THINT #### [facility] [address] [place] [address] Dr. Jessica Mosqueda ALP [Catalytic activity/Vol] 34 U/L Critically low 46-116 [facility] Comment on above: Performed By: #### P THINT #### [facility] [address] [place] [address] Dr. Jessica Mosqueda ALT [Catalytic activity/Vol] 13 U/L Critically low 14-59 [facility] Comment on above: Performed By: #### P THINT #### [facility] [address] [place] [address] Dr. Jessica Mosqueda Anion gap [Moles/Vol] 13.6 mmol/L Normal [facility] Comment on above: Performed By: #### P THINT #### [facility] [address] [place] [address] Dr. Jessica Mosqueda AST [Catalytic activity/Vol] 9 U/L Critically low 15-37 [facility] Comment on above: Performed By: #### P THINT #### [facility] [address] [place] [address] Dr. Jessica Mosqueda Bilirubin [Mass/Vol] 0.3 mg/dL Normal 0.2-1.0 [facility] Comment on above: Performed By: #### P THINT #### [facility] [address] [address] [address] Jessica Mosqueda Calcium [Mass/Vol] 9.5 mg/dL Normal 8.5-10.1 [facility] Comment on above: Performed By: #### P THINT #### [facility] [address] [address] [address] Jessica Mosqueda Chloride [Moles/Vol] 105 mmol/L Normal 98-107 [facility] Comment on above: Performed By: #### P THINT #### [facility] [address] [place] [address] Dr. Jessica Mosqueda CO2 [Moles/Vol] 24.7 mmol/L Normal 21.0-32.0 [facility] Comment on above: Performed By: #### P THINT #### [facility] [address] [place] [address] Dr. Jessica Mosqueda Creatinine [Mass/Vol] 1.67 mg/dL Critically high 0.55-1.02 [facility] Comment on above: Performed By: #### P THINT #### [facility] [address] [place] [address] Dr. Jessica Mosqueda EGFR-AF ECUADOREAN 41 mL/min/1.73m2 Critically low >=60 [facility] Comment on above: Performed By: #### P THINT #### [facility] [address] [place] [address] Dr. Jessica Mosqueda EGFR-NON AF ECUADOREAN 34 mL/min/1.73m2 Critically low >=60 [facility] Comment on above: Performed By: #### P THINT #### [facility] [address] [place] [address] Dr. Jessica Mosqueda Globulin (S) [Mass/Vol] 3.5 g/dL Normal [facility] Comment on above: Performed By: #### P THINT #### [facility] [address] [address] [address] Jessica Mosqueda Glucose [Mass/Vol] 94 mg/dL Normal 74-106 [facility] Comment on above: Performed By: #### P THINT #### [facility] [address] [place] [address] Dr. Jessica Mosqueda Potassium [Moles/Vol] 4.4 mmol/L Normal 3.5-5.1 [facility] Comment on above: Performed By: #### P THINT #### [facility] [address] [address] [address] Jessica Mosqueda Protein [Mass/Vol] 7.4 g/dL Normal 6.4-8.2 [facility] Comment on above: Performed By: #### P THINT #### [facility] [address] [place] [address] Dr. Jessica Mosqueda Sodium [Moles/Vol] 139 mmol/L Normal 136-145 [facility] Comment on above: Performed By: #### P THINT #### [facility] [address] [place] [address] Dr. Jessica Mosqueda Urea nitrogen [Mass/Vol] 29.0 mg/dL Critically high 7.0-18.0 [facility] Comment on above: Performed By: #### P THINT #### [facility] [address] [place] [address] Dr. Jessica Mosqueda Urea nitrogen/Creatinine [Mass ratio] 17.4 mg/mg Normal [facility] Comment on above: Performed By: #### P THINT #### [facility] [address] [place] [address] Dr. Jessica Mosqueda PTH INTACTon 06-30-2022 PTH, Intact 64 pg/mL Normal 15-65 [facility] Comment on above: Performed By: #### P THINT #### [facility] [address] [place] [address] Dr. Jessica Mosqueda HEMOGRAM AND PLATELon 2021 Hematocrit (Bld) [Volume fraction] 37.5 % Normal 36.0-48.0 [facility] Comment on above: Performed By: #### P THINT #### [facility] [address] [place] [address] Dr. Jessica Mosqueda Hemoglobin (Bld) [Mass/Vol] 12.1 g/dL Normal 12.0-16.0 [facility] Comment on above: Performed By: #### P THINT #### [facility] [address] [place] [address] Dr. Jessica Mosqueda MCH (RBC) [Entitic mass] 29.0 pg Normal 26.7-34.0 [facility] Comment on above: Performed By: #### P THINT #### [facility] [address] [place] [address] Dr. Jessica Mosqueda MCHC (RBC) [Mass/Vol] 32.3 g/dL Normal 29.9-35.2 [facility] Comment on above: Performed By: #### P THINT #### [facility] [address] [place] [address] Dr. Jessica Mosqueda MCV (RBC) [Entitic vol] 89.9 fL Normal 81.0-99.0 [facility] Comment on above: Performed By: #### P THINT #### [facility] [address] [place] [address] Dr. Jessica Mosqueda PLT 170 103/ul Normal 150-450 [facility] Comment on above: Performed By: #### P THINT #### [facility] [address] [place] [address] Dr. Jessica Mosqueda RBC 4.17 106/ul Critically low 4.20-5.40 [facility] Comment on above: Performed By: #### P THINT #### [facility] [address] [place] [address] Dr. Jessica Mosqueda WBC 9.4 103/ul Normal 4.0-11.0 [facility] Comment on above: Performed By: #### P THINT #### [facility] [address] [place] [address] Dr. Jessica Mosqueda PHOSPHORUSon 06-29-2022 Phosphate [Mass/Vol] 3.8 mg/dL Normal 2.6-4.7 [facility] Comment on above: Performed By: #### L IPID, CMP, TSH, T7 #### [facility] [address] [place] [address] Dr. Jessica Mosqueda PROF 14(COMP METB)on 022 Albumin [Mass/Vol] 4.0 g/dL Normal 3.4-5.0 [facility] Comment on above: Performed By: #### L IPID, CMP, TSH, T7 #### [facility] [address] [place] [address] Dr. Jessica Mosqueda Albumin/Globulin [Mass ratio] 1.2 {ratio} Normal [facility] Comment on above: Performed By: #### L IPID, CMP, TSH, T7 #### [facility] [address] [place] [address] Dr. Jessica Mosqueda ALP [Catalytic activity/Vol] 38 U/L Critically low 46-116 [facility] Comment on above: Performed By: #### L IPID, CMP, TSH, T7 #### [facility] [address] [place] [address] Dr. Jessica Mosqueda ALT [Catalytic activity/Vol] 13 U/L Critically low 14-59 [facility] Comment on above: Performed By: #### L IPID, CMP, TSH, T7 #### [facility] [address] [place] [address] Dr. Jessica Mosqueda Anion gap [Moles/Vol] 13.1 mmol/L Normal [facility] Comment on above: Performed By: #### L IPID, CMP, TSH, T7 #### [facility] [address] [place] [address] Dr. Jessica Mosqueda AST [Catalytic activity/Vol] 14 U/L Critically low 15-37 [facility] Comment on above: Performed By: #### L IPID, CMP, TSH, T7 #### [facility] [address] [place] [address] Dr. Jessica Mosqueda Bilirubin [Mass/Vol] 0.4 mg/dL Normal 0.2-1.0 [facility] Comment on above: Performed By: #### L IPID, CMP, TSH, T7 #### [facility] [address] [place] [address] Dr. Jessica Mosqueda Calcium [Mass/Vol] 9.2 mg/dL Normal 8.5-10.1 [facility] Comment on above: Performed By: #### L IPID, CMP, TSH, T7 #### [facility] [address] [address] [address] Jessica Mosqueda Chloride [Moles/Vol] 104 mmol/L Normal 98-107 [facility] Comment on above: Performed By: #### L IPID, CMP, TSH, T7 #### [facility] [address] [address] [address] Jessica Mosqueda CO2 [Moles/Vol] 26.1 mmol/L Normal 21.0-32.0 [facility] Comment on above: Performed By: #### L IPID, CMP, TSH, T7 #### [facility] [address] [address] [address] Jessica Mosqueda Creatinine [Mass/Vol] 1.86 mg/dL Critically high 0.55-1.02 [facility] Comment on above: Performed By: #### L IPID, CMP, TSH, T7 #### [facility] [address] [address] [address] Jessica Mosqueda EGFR-AF ECUADOREAN 36 mL/min/1.73m2 Critically low >=60 [facility] Comment on above: Performed By: #### L IPID, CMP, TSH, T7 #### [facility] [address] [address] [address] Jessica Mosqueda EGFR-NON AF ECUADOREAN 30 mL/min/1.73m2 Critically low >=60 [facility] Comment on above: Performed By: #### L IPID, CMP, TSH, T7 #### [facility] [address] [address] [address] Jessica Mosqueda Globulin (S) [Mass/Vol] 3.4 g/dL Normal [facility] Comment on above: Performed By: #### L IPID, CMP, TSH, T7 #### [facility] [address] [address] [address] Jessica Mosqueda Glucose [Mass/Vol] 84 mg/dL Normal 74-106 [facility] Comment on above: Performed By: #### L IPID, CMP, TSH, T7 #### [facility] [address] [address] [address] Jessica Mosqueda Potassium [Moles/Vol] 4.2 mmol/L Normal 3.5-5.1 [facility] Comment on above: Performed By: #### L IPID, CMP, TSH, T7 #### [facility] [address] [address] [address] Jessica Mosqueda Protein [Mass/Vol] 7.4 g/dL Normal 6.4-8.2 [facility] Comment on above: Performed By: #### L IPID, CMP, TSH, T7 #### [facility] [address] [address] [address] Jessica Mosqueda Sodium [Moles/Vol] 139 mmol/L Normal 136-145 [facility] Comment on above: Performed By: #### L IPID, CMP, TSH, T7 #### [facility] [address] [place] [address] Dr. Jessica Mosqueda Urea nitrogen [Mass/Vol] 26.0 mg/dL Critically high 7.0-18.0 [facility] Comment on above: Performed By: #### L IPID, CMP, TSH, T7 #### [facility] [address] [place] [address] Dr. Jessica Mosqueda Urea nitrogen/Creatinine [Mass ratio] 14.0 mg/mg Normal [facility] Comment on above: Performed By: #### L IPID, CMP, TSH, T7 #### [facility] [address] [place] [address] Dr. Jessica Mosqueda UA RANDOMon 06-29-2022 Bilirubin Ql (U) Negative Normal NEGATIVE [facility] Comment on above: Performed By: #### L IPID, CMP, TSH, T7 #### [facility] [address] [place] [address] Dr. Jessica Mosqueda Clarity (U) CLEAR Normal CLEAR [facility] Comment on above: Performed By: #### L IPID, CMP, TSH, T7 #### [facility] [address] [address] [address] Jessica Mosqueda Color (U) LT. YELLOW Normal YELLOW [facility] Comment on above: Performed By: #### L IPID, CMP, TSH, T7 #### [facility] [address] [place] [address] Dr. Jessica Mosqueda Glucose Ql (U) Negative Normal NEGATIVE [facility] Comment on above: Performed By: #### L IPID, CMP, TSH, T7 #### [facility] [address] [address] [address] Jessica Mosqueda Hemoglobin Ql (U) Negative Normal NEGATIVE [facility] Comment on above: Performed By: #### L IPID, CMP, TSH, T7 #### [facility] [address] [place] [address] Dr. Jessica Mosqueda Ketones Ql (U) Negative Normal NEGATIVE [facility] Comment on above: Performed By: #### L IPID, CMP, TSH, T7 #### [facility] [address] [place] [address] Dr. Jessica Mosqueda LEUKOCYTES Negative Normal NEGATIVE [facility] Comment on above: Performed By: #### L IPID, CMP, TSH, T7 #### [facility] [address] [place] [address] Dr. Jessica Mosqueda Nitrite Ql (U) Negative Normal NEGATIVE [facility] Comment on above: Performed By: #### L IPID, CMP, TSH, T7 #### [facility] [address] [place] [address] Dr. Jessica Mosqueda pH (U) 6.0 [pH] Normal 5-9 [facility] Comment on above: Performed By: #### L IPID, CMP, TSH, T7 #### [facility] [address] [place] [address] Dr. Jessica Mosqueda SPEC GRAVITY <=1.005 Abnormal 1.005-<=1.025 [facility] Comment on above: Performed By: #### L IPID, CMP, TSH, T7 #### [facility] [address] [place] [address] Dr. Jessica Mosqueda UA PROTEIN Negative Normal NEGATIVE/ TRACE [facility] Comment on above: Performed By: #### L IPID, CMP, TSH, T7 #### [facility] [address] [place] [address] Dr. Jessica Mosqueda Urobilinogen Qn (U) 0.2 {Fran'U}/dL Normal 0.2 - 1. 0 [facility] Comment on above: Performed By: #### L IPID, CMP, TSH, T7 #### [facility] [address] [place] [address] Dr. Jessica Mosqueda PROF 14(COMP METB)on 022 Albumin [Mass/Vol] 3.9 g/dL Normal 3.4-5.0 [facility] Comment on above: Performed By: #### P THINT #### [facility] [address] [place] [address] Dr. Jessica Mosqueda Albumin/Globulin [Mass ratio] 1.1 {ratio} Normal [facility] Comment on above: Performed By: #### P THINT #### [facility] [address] [place] [address] Dr. Jessica Mosqueda ALP [Catalytic activity/Vol] 36 U/L Critically low 46-116 [facility] Comment on above: Performed By: #### P THINT #### [facility] [address] [place] [address] Dr. Jessica Mosqueda ALT [Catalytic activity/Vol] 17 U/L Normal 14-59 [facility] Comment on above: Performed By: #### P THINT #### [facility] [address] [place] [address] Dr. Jesscia Mosqueda Anion gap [Moles/Vol] 13.9 mmol/L Normal Th [facility] Comment on above: Performed By: #### P THINT #### [facility] [address] [place] [address] Dr. Jessica Mosqueda AST [Catalytic activity/Vol] 11 U/L Critically low 15-37 [facility] Comment on above: Performed By: #### P THINT #### [facility] [address] [place] [address] Dr. Jessica Mosqueda Bilirubin [Mass/Vol] 0.3 mg/dL Normal 0.2-1.0 [facility] Comment on above: Performed By: #### P THINT #### [facility] [address] [address] [address] Jessica Mosqueda Calcium [Mass/Vol] 9.2 mg/dL Normal 8.5-10.1 [facility] Comment on above: Performed By: #### P THINT #### [facility] [address] [address] [address] Jessica Mosqueda Chloride [Moles/Vol] 105 mmol/L Normal 98-107 [facility] Comment on above: Performed By: #### P THINT #### [facility] [address] [address] [address] Jessica Mosqueda CO2 [Moles/Vol] 26.5 mmol/L Normal 21.0-32.0 [facility] Comment on above: Performed By: #### P THINT #### [facility] [address] [address] [address] Jessica Mosqueda Creatinine [Mass/Vol] 2.06 mg/dL Critically high 0.55-1.02 [facility] Comment on above: Performed By: #### P THINT #### [facility] [address] [address] [address] Jessica Mosqueda EGFR-AF ECUADOREAN 32 mL/min/1.73m2 Critically low >=60 [facility] Comment on above: Performed By: #### P THINT #### [facility] [address] [address] [address] Jessica Mosqueda EGFR-NON AF ECUADOREAN 27 mL/min/1.73m2 Critically low >=60 [facility] Comment on above: Performed By: #### P THINT #### [facility] [address] [address] [address] Jessica Mosqueda Globulin (S) [Mass/Vol] 3.5 g/dL Normal [facility] Comment on above: Performed By: #### P THINT #### [facility] [address] [address] [address] Jessica Mosqueda Glucose [Mass/Vol] 75 mg/dL Normal 74-106 [facility] Comment on above: Performed By: #### P THINT #### [facility] [address] [address] [address] Jessica Mosqueda Potassium [Moles/Vol] 4.4 mmol/L Normal 3.5-5.1 [facility] Comment on above: Performed By: #### P THINT #### [facility] [address] [address] [address] Jessica Mosqueda Protein [Mass/Vol] 7.4 g/dL Normal 6.4-8.2 [facility] Comment on above: Performed By: #### P THINT #### [facility] [address] [place] [address] Dr. Jessica Mosqueda Sodium [Moles/Vol] 141 mmol/L Normal 136-145 [facility] Comment on above: Performed By: #### P THINT #### [facility] [address] [address] [address] Jessica Mosqueda Urea nitrogen [Mass/Vol] 37.0 mg/dL Critically high 7.0-18.0 [facility] Comment on above: Performed By: #### P THINT #### [facility] [address] [place] [address] Dr. Jessica Mosqueda Urea nitrogen/Creatinine [Mass ratio] 18.0 mg/mg Normal [facility] Comment on above: Performed By: #### P THINT #### [facility] [address] [place] [address] Dr. Jessica Mosqueda PROF 14(COMP METB)on 022 Albumin [Mass/Vol] 3.9 g/dL Normal 3.4-5.0 [facility] Comment on above: Performed By: #### C MP #### [facility] [address] [place] [address] Dr. Jessica Mosqueda Albumin/Globulin [Mass ratio] 1.2 {ratio} Normal [facility] Comment on above: Performed By: #### C MP #### [facility] [address] [address] [address] Jessica Mosqueda ALP [Catalytic activity/Vol] 32 U/L Critically low 46-116 [facility] Comment on above: Performed By: #### C MP #### [facility] [address] [address] [address] Jessica Mosqueda ALT [Catalytic activity/Vol] 12 U/L Critically low 14-59 [facility] Comment on above: Performed By: #### C MP #### [facility] [address] [place] [address] Dr. Jessica Mosqueda Anion gap [Moles/Vol] 13.6 mmol/L Normal Th [facility] Comment on above: Performed By: #### C MP #### [facility] [address] [place] [address] Dr. Jessica Mosqueda AST [Catalytic activity/Vol] 15 U/L Normal 15-37 [facility] Comment on above: Performed By: #### C MP #### [facility] [address] [place] [address] Dr. Jessica Mosqueda Bilirubin [Mass/Vol] 0.2 mg/dL Normal 0.2-1.0 [facility] Comment on above: Performed By: #### C MP #### [facility] [address] [place] [address] Dr. Jessica Mosqueda Calcium [Mass/Vol] 9.2 mg/dL Normal 8.5-10.1 [facility] Comment on above: Performed By: #### C MP #### [facility] [address] [place] [address] Dr. Jessica Mosqueda Chloride [Moles/Vol] 105 mmol/L Normal 98-107 [facility] Comment on above: Performed By: #### C MP #### [facility] [address] [place] [address] Dr. Jessica Mosqueda CO2 [Moles/Vol] 26.0 mmol/L Normal 21.0-32.0 [facility] Comment on above: Performed By: #### C MP #### [facility] [address] [place] [address] Dr. Jessica Mosqueda Creatinine [Mass/Vol] 1.98 mg/dL Critically high 0.55-1.02 [facility] Comment on above: Performed By: #### C MP #### [facility] [address] [address] [address] Jessica Mosqueda EGFR-AF ECUADOREAN 34 mL/min/1.73m2 Critically low >=60 [facility] Comment on above: Performed By: #### C MP #### [facility] [address] [address] [address] Jessica Mosqueda EGFR-NON AF ECUADOREAN 28 mL/min/1.73m2 Critically low >=60 [facility] Comment on above: Performed By: #### C MP #### [facility] [address] [place] [address] Dr. Jessica Mosqueda Globulin (S) [Mass/Vol] 3.3 g/dL Normal [facility] Comment on above: Performed By: #### C MP #### [facility] [address] [address] [address] Jessica Mosqueda Glucose [Mass/Vol] 93 mg/dL Normal 74-106 [facility] Comment on above: Performed By: #### C MP #### [facility] [address] [place] [address] Dr. Jessica Mosqueda Potassium [Moles/Vol] 4.6 mmol/L Normal 3.5-5.1 [facility] Comment on above: Performed By: #### C MP #### [facility] [address] [address] [address] Jessica Mosqueda Protein [Mass/Vol] 7.2 g/dL Normal 6.4-8.2 [facility] Comment on above: Performed By: #### C MP #### [facility] [address] [place] [address] Dr. Jessica Mosqueda Sodium [Moles/Vol] 140 mmol/L Normal 136-145 [facility] Comment on above: Performed By: #### C MP #### [facility] [address] [place] [address] Dr. Jessica Mosqueda Urea nitrogen [Mass/Vol] 23.0 mg/dL Critically high 7.0-18.0 [facility] Comment on above: Performed By: #### C MP #### [facility] [address] [place] [address] Dr. Jessica Mosqueda Urea nitrogen/Creatinine [Mass ratio] 11.6 mg/mg Normal [facility] Comment on above: Performed By: #### C MP #### [facility] [address] [place] [address] Dr. Jessica Mosqueda PTH INTACTon 03-23-2022 PTH, Intact 71 pg/mL Critically high 15-65 [facility] Comment on above: Performed By: #### P THINT #### [facility] [address] [place] [address] Dr. Jessica Mosqueda HEMOGRAM AND PLATELon 2021 Hematocrit (Bld) [Volume fraction] 37.8 % Normal 36.0-48.0 [facility] Comment on above: Performed By: #### H H #### [facility] [address] [place] [address] Dr. Jessica Mosqueda Hemoglobin (Bld) [Mass/Vol] 12.3 g/dL Normal 12.0-16.0 [facility] Comment on above: Performed By: #### H H #### [facility] [address] [place] [address] Dr. Jessica Mosqueda MCH (RBC) [Entitic mass] 29.6 pg Normal 26.7-34.0 [facility] Comment on above: Performed By: #### H H #### [facility] [address] [place] [address] Dr. Jessica Mosqueda MCHC (RBC) [Mass/Vol] 32.5 g/dL Normal 29.9-35.2 [facility] Comment on above: Performed By: #### H H #### [facility] [address] [place] [address] Dr. Jessica Mosqueda MCV (RBC) [Entitic vol] 90.9 fL Normal 81.0-99.0 [facility] Comment on above: Performed By: #### H H #### [facility] [address] [address] [address] Jessica Mosqueda PLT 158 103/ul Normal 150-450 [facility] Comment on above: Performed By: #### H H #### [facility] [address] [address] [address] Jessica Mosqueda RBC 4.16 106/ul Critically low 4.20-5.40 [facility] Comment on above: Performed By: #### H H #### [facility] [address] [address] [address] Jessica Mosqueda WBC 10.3 103/ul Normal 4.0-11.0 [facility] Comment on above: Performed By: #### H H #### [facility] [address] [place] [address] Dr. Jessica Mosqueda PHOSPHORUSon 03-22-2022 Phosphate [Mass/Vol] 4.7 mg/dL Normal 2.6-4.7 [facility] Comment on above: Performed By: #### L IPID, CMP, TSH, T7 #### [facility] [address] [place] [address] Dr. Jessica Mosqueda PROF 14(COMP METB)on 022 Albumin [Mass/Vol] 4.1 g/dL Normal 3.4-5.0 [facility] Comment on above: Performed By: #### L IPID, CMP, TSH, T7 #### [facility] [address] [place] [address] Dr. Jessica Mosqueda Albumin/Globulin [Mass ratio] 1.2 {ratio} Normal [facility] Comment on above: Performed By: #### L IPID, CMP, TSH, T7 #### [facility] [address] [address] [address] Jessica Mosqueda ALP [Catalytic activity/Vol] 36 U/L Critically low 46-116 [facility] Comment on above: Performed By: #### L IPID, CMP, TSH, T7 #### [facility] [address] [place] [address] Dr. Jessica Mosqueda ALT [Catalytic activity/Vol] 16 U/L Normal 14-59 [facility] Comment on above: Performed By: #### L IPID, CMP, TSH, T7 #### [facility] [address] [address] [address] Jessica Mosqueda Anion gap [Moles/Vol] 15.4 mmol/L Normal Th e [facility] Comment on above: Performed By: #### L IPID, CMP, TSH, T7 #### [facility] [address] [address] [address] Jessica Mosqueda AST [Catalytic activity/Vol] 12 U/L Critically low 15-37 [facility] Comment on above: Performed By: #### L IPID, CMP, TSH, T7 #### [facility] [address] [place] [address] Dr. Jessica Mosqueda Bilirubin [Mass/Vol] 0.6 mg/dL Normal 0.2-1.0 [facility] Comment on above: Performed By: #### L IPID, CMP, TSH, T7 #### [facility] [address] [address] [address] Jessica Mosqueda Calcium [Mass/Vol] 9.3 mg/dL Normal 8.5-10.1 [facility] Comment on above: Performed By: #### L IPID, CMP, TSH, T7 #### [facility] [address] [place] [address] Dr. Jessica Mosqueda Chloride [Moles/Vol] 103 mmol/L Normal 98-107 [facility] Comment on above: Performed By: #### L IPID, CMP, TSH, T7 #### [facility] [address] [place] [address] Dr. Jessica Mosqueda CO2 [Moles/Vol] 24.4 mmol/L Normal 21.0-32.0 [facility] Comment on above: Performed By: #### L IPID, CMP, TSH, T7 #### [facility] [address] [place] [address] Dr. Jessica Mosqueda Creatinine [Mass/Vol] 2.04 mg/dL Critically high 0.55-1.02 [facility] Comment on above: Performed By: #### L IPID, CMP, TSH, T7 #### [facility] [address] [place] [address] Dr. Jessica Mosqueda EGFR-AF ECUADOREAN 33 mL/min/1.73m2 Critically low >=60 [facility] Comment on above: Performed By: #### L IPID, CMP, TSH, T7 #### [facility] [address] [place] [address] Dr. Jessica Mosqueda EGFR-NON AF ECUADOREAN 27 mL/min/1.73m2 Critically low >=60 [facility] Comment on above: Performed By: #### L IPID, CMP, TSH, T7 #### [facility] [address] [address] [address] Jessica Mosqueda Globulin (S) [Mass/Vol] 3.3 g/dL Normal [facility] Comment on above: Performed By: #### L IPID, CMP, TSH, T7 #### [facility] [address] [place] [address] Dr. Jessica Mosqueda Glucose [Mass/Vol] 84 mg/dL Normal 74-106 [facility] Comment on above: Performed By: #### L IPID, CMP, TSH, T7 #### [facility] [address] [place] [address] Dr. Jessica Mosqueda Potassium [Moles/Vol] 3.8 mmol/L Normal 3.5-5.1 [facility] Comment on above: Performed By: #### L IPID, CMP, TSH, T7 #### [facility] [address] [place] [address] Dr. Jessica Mosqueda Protein [Mass/Vol] 7.4 g/dL Normal 6.4-8.2 [facility] Comment on above: Performed By: #### L IPID, CMP, TSH, T7 #### [facility] [address] [place] [address] Dr. Jessica Mosqueda Sodium [Moles/Vol] 139 mmol/L Normal 136-145 [facility] Comment on above: Performed By: #### L IPID, CMP, TSH, T7 #### [facility] [address] [place] [address] Dr. Jessica Mosqueda Urea nitrogen [Mass/Vol] 30.0 mg/dL Critically high 7.0-18.0 [facility] Comment on above: Performed By: #### L IPID, CMP, TSH, T7 #### [facility] [address] [address] [address] Jessica Mosqueda Urea nitrogen/Creatinine [Mass ratio] 14.7 mg/mg Normal [facility] Comment on above: Performed By: #### L IPID, CMP, TSH, T7 #### [facility] [address] [address] [address] Jessica Mosqueda UA RANDOMon 03-22-2022 Bilirubin Ql (U) Negative Normal NEGATIVE [facility] Comment on above: Performed By: #### L IPID, CMP, TSH, T7 #### [facility] [address] [address] [address] Jessica Mosqueda Clarity (U) CLEAR Normal CLEAR [facility] Comment on above: Performed By: #### L IPID, CMP, TSH, T7 #### [facility] [address] [address] [address] Jessica Mosqueda Color (U) LT. YELLOW Normal YELLOW [facility] Comment on above: Performed By: #### L IPID, CMP, TSH, T7 #### [facility] [address] [address] [address] Jessica Mosqueda Glucose Ql (U) Negative Normal NEGATIVE [facility] Comment on above: Performed By: #### L IPID, CMP, TSH, T7 #### [facility] [address] [address] [address] Jessica Mosqueda Hemoglobin Ql (U) Negative Normal NEGATIVE [facility] Comment on above: Performed By: #### L IPID, CMP, TSH, T7 #### [facility] [address] [address] [address] Jessica Mosqueda Ketones Ql (U) Negative Normal NEGATIVE [facility] Comment on above: Performed By: #### L IPID, CMP, TSH, T7 #### [facility] [address] [address] [address] Jessica Mosqueda LEUKOCYTES Negative Normal NEGATIVE [facility] Comment on above: Performed By: #### L IPID, CMP, TSH, T7 #### [facility] [address] [place] [address] Dr. Jessica Mosqueda Nitrite Ql (U) Negative Normal NEGATIVE [facility] Comment on above: Performed By: #### L IPID, CMP, TSH, T7 #### [facility] [address] [place] [address] Dr. Jessica Mosqueda pH (U) 5.5 [pH] Normal 5-9 [facility] Comment on above: Performed By: #### L IPID, CMP, TSH, T7 #### [facility] [address] [place] [address] Dr. Jessica Mosqueda SPEC GRAVITY 1.005 Normal 1.005-<=1.025 [facility] Comment on above: Performed By: #### L IPID, CMP, TSH, T7 #### [facility] [address] [place] [address] Dr. Jessica Mosqueda UA PROTEIN Negative Normal NEGATIVE/ TRACE [facility] Comment on above: Performed By: #### L IPID, CMP, TSH, T7 #### [facility] [address] [place] [address] Dr. Jessica Mosqueda Urobilinogen Qn (U) 0.2 {Fran'U}/dL Normal 0.2 - 1. 0 [facility] Comment on above: Performed By: #### L IPID, CMP, TSH, T7 #### [facility] [address] [place] [address] Dr. Jessica Mosqueda URINE T PROTEIN CREAT RATIOo n 03-22-2022 UR TOTAL PROTEIN <6.0 Normal <=12.0 [facility] Comment on above: Performed By: #### L IPID, CMP, TSH, T7 #### [facility] [address] [place] [address] Dr. Jessica Mosqueda URINE CREAT 23.46 mg/dL Normal 20.00-300.00 [facility] Comment on above: Performed By: #### L IPID, CMP, TSH, T7 #### [facility] [address] [place] [address] Dr. Jessica Mosqueda PROF 14(COMP METB)on 022 Albumin [Mass/Vol] 3.8 g/dL Normal 3.4-5.0 [facility] Comment on above: Performed By: #### L IPID, CMP, TSH, T7 #### [facility] [address] [place] [address] Dr. Jessica Mosqueda Albumin/Globulin [Mass ratio] 1.3 {ratio} Normal [facility] Comment on above: Performed By: #### L IPID, CMP, TSH, T7 #### [facility] [address] [place] [address] Dr. Jessica Mosqueda ALP [Catalytic activity/Vol] 35 U/L Critically low 46-116 [facility] Comment on above: Performed By: #### L IPID, CMP, TSH, T7 #### [facility] [address] [place] [address] Dr. Jessica Mosqueda ALT [Catalytic activity/Vol] 17 U/L Normal 14-59 [facility] Comment on above: Performed By: #### L IPID, CMP, TSH, T7 #### [facility] [address] [place] [address] Dr. Jessica Mosqueda Anion gap [Moles/Vol] 12.2 mmol/L Normal [facility] Comment on above: Performed By: #### L IPID, CMP, TSH, T7 #### [facility] [address] [place] [address] Dr. Jessica Mosqueda AST [Catalytic activity/Vol] 13 U/L Critically low 15-37 [facility] Comment on above: Performed By: #### L IPID, CMP, TSH, T7 #### [facility] [address] [place] [address] Dr. Jessica Mosqueda Bilirubin [Mass/Vol] 0.4 mg/dL Normal 0.2-1.0 [facility] Comment on above: Performed By: #### L IPID, CMP, TSH, T7 #### [facility] [address] [place] [address] Dr. Jessica Mosqueda Calcium [Mass/Vol] 8.6 mg/dL Normal 8.5-10.1 [facility] Comment on above: Performed By: #### L IPID, CMP, TSH, T7 #### [facility] [address] [address] [address] Jessica Mosqueda Chloride [Moles/Vol] 106 mmol/L Normal 98-107 [facility] Comment on above: Performed By: #### L IPID, CMP, TSH, T7 #### [facility] [address] [address] [address] Jessica Mosqueda CO2 [Moles/Vol] 26.1 mmol/L Normal 21.0-32.0 [facility] Comment on above: Performed By: #### L IPID, CMP, TSH, T7 #### [facility] [address] [address] [address] Jessica Mosqueda Creatinine [Mass/Vol] 1.76 mg/dL Critically high 0.55-1.02 [facility] Comment on above: Performed By: #### L IPID, CMP, TSH, T7 #### [facility] [address] [address] [address] Jessica Mosqueda EGFR-AF ECUADOREAN 39 mL/min/1.73m2 Critically low >=60 [facility] Comment on above: Performed By: #### L IPID, CMP, TSH, T7 #### [facility] [address] [address] [address] Jessica Mosqueda EGFR-NON AF ECUADOREAN 32 mL/min/1.73m2 Critically low >=60 [facility] Comment on above: Performed By: #### L IPID, CMP, TSH, T7 #### [facility] [address] [address] [address] Jessica Mosqueda Globulin (S) [Mass/Vol] 3.0 g/dL Normal [facility] Comment on above: Performed By: #### L IPID, CMP, TSH, T7 #### [facility] [address] [address] [address] Jessica Mosqueda Glucose [Mass/Vol] 81 mg/dL Normal 74-106 [facility] Comment on above: Performed By: #### L IPID, CMP, TSH, T7 #### [facility] [address] [place] [address] Dr. Jessica Mosqueda Potassium [Moles/Vol] 4.3 mmol/L Normal 3.5-5.1 [facility] Comment on above: Performed By: #### L IPID, CMP, TSH, T7 #### [facility] [address] [place] [address] Dr. Jessica Mosqueda Protein [Mass/Vol] 6.8 g/dL Normal 6.4-8.2 [facility] Comment on above: Performed By: #### L IPID, CMP, TSH, T7 #### [facility] [address] [place] [address] Dr. Jessica Mosqueda Sodium [Moles/Vol] 140 mmol/L Normal 136-145 [facility] Comment on above: Performed By: #### L IPID, CMP, TSH, T7 #### [facility] [address] [place] [address] Dr. Jessica Mosqueda Urea nitrogen [Mass/Vol] 20.0 mg/dL Critically high 7.0-18.0 [facility] Comment on above: Performed By: #### L IPID, CMP, TSH, T7 #### [facility] [address] [place] [address] Dr. Jessica Mosqueda Urea nitrogen/Creatinine [Mass ratio] 11.4 mg/mg Normal [facility] Comment on above: Performed By: #### L IPID, CMP, TSH, T7 #### [facility] [address] [place] [address] Dr. Jessica Mosqueda PROF 14(COMP METB)on 022 Albumin [Mass/Vol] 4.0 g/dL Normal 3.4-5.0 [facility] Comment on above: Performed By: #### L IPID, CMP, TSH, T7 #### [facility] [address] [place] [address] Dr. Jessica Mosqueda Albumin/Globulin [Mass ratio] 1.2 {ratio} Normal [facility] Comment on above: Performed By: #### L IPID, CMP, TSH, T7 #### [facility] [address] [address] [address] Jessica Mosqueda ALP [Catalytic activity/Vol] 31 U/L Critically low 46-116 [facility] Comment on above: Performed By: #### L IPID, CMP, TSH, T7 #### [facility] [address] [place] [address] Dr. Jessica Mosqueda ALT [Catalytic activity/Vol] 19 U/L Normal 14-59 [facility] Comment on above: Performed By: #### L IPID, CMP, TSH, T7 #### [facility] [address] [place] [address] Dr. Jessica Mosqueda Anion gap [Moles/Vol] 13.7 mmol/L Normal Th [facility] Comment on above: Performed By: #### L IPID, CMP, TSH, T7 #### [facility] [address] [place] [address] Dr. Jessica Mosqueda AST [Catalytic activity/Vol] 12 U/L Critically low 15-37 [facility] Comment on above: Performed By: #### L IPID, CMP, TSH, T7 #### [facility] [address] [place] [address] Dr. Jessica Mosqueda Bilirubin [Mass/Vol] 0.3 mg/dL Normal 0.2-1.0 [facility] Comment on above: Performed By: #### L IPID, CMP, TSH, T7 #### [facility] [address] [place] [address] Dr. Jessica Mosqueda Calcium [Mass/Vol] 9.3 mg/dL Normal 8.5-10.1 [facility] Comment on above: Performed By: #### L IPID, CMP, TSH, T7 #### [facility] [address] [place] [address] Dr. Jessica Mosqueda Chloride [Moles/Vol] 106 mmol/L Normal 98-107 [facility] Comment on above: Performed By: #### L IPID, CMP, TSH, T7 #### [facility] [address] [address] [address] Jessica Mosqueda CO2 [Moles/Vol] 25.4 mmol/L Normal 21.0-32.0 [facility] Comment on above: Performed By: #### L IPID, CMP, TSH, T7 #### [facility] [address] [address] [address] Jessica Mosqueda Creatinine [Mass/Vol] 1.84 mg/dL Critically high 0.55-1.02 [facility] Comment on above: Performed By: #### L IPID, CMP, TSH, T7 #### [facility] [address] [place] [address] Dr. Jessica Mosqueda EGFR-AF ECUADOREAN 37 mL/min/1.73m2 Critically low >=60 [facility] Comment on above: Performed By: #### L IPID, CMP, TSH, T7 #### [facility] [address] [place] [address] Dr. Jessica Mosqueda EGFR-NON AF ECUADOREAN 30 mL/min/1.73m2 Critically low >=60 [facility] Comment on above: Performed By: #### L IPID, CMP, TSH, T7 #### [facility] [address] [place] [address] Dr. Jessica Mosqueda Globulin (S) [Mass/Vol] 3.4 g/dL Normal [facility] Comment on above: Performed By: #### L IPID, CMP, TSH, T7 #### [facility] [address] [place] [address] Dr. Jessica Mosqueda Glucose [Mass/Vol] 99 mg/dL Normal 74-106 [facility] Comment on above: Performed By: #### L IPID, CMP, TSH, T7 #### [facility] [address] [place] [address] Dr. Jessica Mosqueda Potassium [Moles/Vol] 4.1 mmol/L Normal 3.5-5.1 [facility] Comment on above: Performed By: #### L IPID, CMP, TSH, T7 #### [facility] [address] [place] [address] Dr. Jessica Mosqueda Protein [Mass/Vol] 7.4 g/dL Normal 6.4-8.2 [facility] Comment on above: Performed By: #### L IPID, CMP, TSH, T7 #### [facility] [address] [address] [address] Jessica Mosqueda Sodium [Moles/Vol] 141 mmol/L Normal 136-145 [facility] Comment on above: Performed By: #### L IPID, CMP, TSH, T7 #### [facility] [address] [address] [address] Jessica Mosqueda Urea nitrogen [Mass/Vol] 25.0 mg/dL Critically high 7.0-18.0 [facility] Comment on above: Performed By: #### L IPID, CMP, TSH, T7 #### [facility] [address] [address] [address] Jessica Mosqueda Urea nitrogen/Creatinine [Mass ratio] 13.6 mg/mg Normal [facility] Comment on above: Performed By: #### L IPID, CMP, TSH, T7 #### [facility] [address] [address] [address] Jessica ALTAMIRANOPon 09-04-2019 [facility] Visit (SP) Office ([place]) CHULAISABEL LEDBETTER ([id number]) 1980 F Date Time Provider Department 09/04/19 3:45 PM LUIS ANGEL HALL During your visit today, we recorded the following information about you: Temperature Pulse Respiration Blood pressure 97.6 degrees 66/minute 18/minute 115/66 Weight Height 82.2 kg 1.676 m Luis Angel Hall DO 09/06/2019 9:21 AM Signed PATIENT NAME: Isabel Rivera REFERRING PHYSICIAN: Timothy Mills MD [address] [place] [address] [place] [address] PRIMARY CARE PHYSICIAN: Maren James MD CHIEF [...] did not have a lupus anticoagulant. Protein CARPET WE[employer]ER were within expected ranges. She had negative [...] 2017. Right posterior tibial vein and associated placement director veins. Follows with Dr. Bateman, vascular. She does exercise slightly 3 days a week and works a [employer] in [employer] [facility] [facility] Medications as of September 2017 [...] questions satisfactorily.. Ankit Hall D.O. Medical Oncologist [place], [place] Cc. Dr. Bateman. Referring Provider: LUIS ANGEL HALL [[id number]] Allergies As of Date: 09/04/2019 Noted Allergy [...] LUIS ANGEL HALL DO on 09/06/19 [facility] PRO[facility]ESS[facility] 09-04-2019 PROGRESS HNO ID: [id number] Author: Luis Angel Hall Service: ? Author Type: Physician Type: Progress Notes Filed: 09/06/2019 9:21 AM Note Text: PATIENT NAME: Isabel Rivera REFERRING PHYSICIAN: Timothy Mills MD [address] [place] [address] [place] [address] PRIMARY CARE PHYSICIAN: Maren James MD CHIEF [...] did not have a lupus anticoagulant. Protein CARPET WEAVER were within expected ranges. She had negative [...] 2017. Right posterior tibial vein and associated placement director veins. Follows with Dr. Bateman, vascular. She does exercise slightly 3 days a week and works a [employer] in [facility]. Medications as of September 2017 [...] questions satisfactorily.. Ankit Hall D.O. Medical Oncologist [facility] [place], [place] Cc. Dr. Bateman. [facility] CNOVSPon 07-30-2019 CNOVSP Visit (SP) Office (HEMAC[facility]) ISABEL RIVERA ([id number]) 1980 F Date Time Provider Department 07/30/19 3:45 PM LUIS ANGEL HALL HEMACL During your visit today, we recorded the following information about you: Temperature Pulse Respiration Blood pressure 98.4 degrees 61/minute 16/minute 107/69 Weight Height 80.6 kg 1.676 m Luis Angel Hall DO 08/02/2019 11:50 AM Signed PATIENT NAME: Isabel Rivera REFERRING PHYSICIAN: Timothy Mills MD [address] [place] [address] [place] [address] PRIMARY CARE PHYSICIAN: Maren James MD CHIEF [...] CBC + DIFF (FOR REMOTE [facility] USE) - BASIC METABOLIC PNL - HEPATIC [...] 2017. Right posterior tibial vein and associated placement director veins. Follows with Dr. Bateman, vascular. She does exercise slightly 3 days a week and works a [employer] in [facility]. Medications as of September 2017 [...] questions satisfactorily.. Ankit Hall D.O. Medical Oncologist [facility] [place], [place] Cc. Dr. Bateman. Referring Provider: TIMOTHY MILLS [[id number]] Allergies As of Date: 07/30/2019 (Not on File) Date Reviewed: 07/30/2019 Reviewed by: Lavonne Borrego - Fully Assessed Reason for Visit: Consult [173] Primary Visit Diagnosis:Acute deep vein thrombosis (DVT) of proximal vein of both lower extremities (HCC) [I82.4Y3] Order(s): LEG VEIN DVT [facility] [[id number]] Order #: [id number] FUTURE FACTOR V LEIDEN/PCR [SQFVLEID] Order #: [id number] FUTURE PROTHROMBIN GENE PCR [SQPTGENE] Order #: [id number] FUTURE PROTEIN C FUNCT [SQPRCFUN] Order #: [id number] FUTURE PROTEIN S CLOTTABLE [SQPRSCLT] Order #: [id number] FUTURE ANTITHROMBIN ACTIVITY [KEUC8ZQK] Order #: [id number] FUTURE LUPUS ANTICOAG PL [SQLUPUSP] Order #: [id number] FUTURE B 2 GPI IGG AND IGM [KMY4MQMD] Order #: [id number] FUTURE ANTI-CARDIOLIPIN AB [SQCARDIO] Order #: [id number] FUTURE HOMOCYSTEINE [SQHOMCYS] Order #: [id number] FUTURE FERRITIN BLD [SQFERR] Order #: [id number] FUTURE IRON + TIBC [SQIRON] Order #: [id number] FUTURE CBC + DIFF (FOR REMOTE [facility] USE) [SQRCBCDF] Order #: [id number] FUTURE BASIC METABOLIC PNL [SQBMP] Order #: [id number] FUTURE HEPATIC FUNCTION PNL [SQHFP] Order #: [id number] FUTURE Disposition: Return labs today. f/u 4 [...] by LUIS ANGEL HALL DO on 08/02/19 [facility] PROGRESSon 07-30-2019 PROGRESS HNO ID: [id number] Author: Luis Angel Hall Service: ? Author Type: Physician Type: Progress Notes Filed: 08/02/2019 11:50 AM Note Text: PATIENT NAME: Isabel Rivera REFERRING PHYSICIAN: Timothy Mills MD [address] [place] [address] Dr Bundy [facility] [address] PRIMARY CARE PHYSICIAN: Maren James MD CHIEF [...] CBC + DIFF (FOR REMOTE [facility] USE) - BASIC METABOLIC PNL - HEPATIC [...] 2017. Right posterior tibial vein and associated placement director veins. Follows with Dr. Bateman, vascular. She does exercise slightly 3 days a week and works a [employer] in [facility]. Medications as of September 2017 [...] Drug use: Never COUNSELING: I discussed with Isbael the natural history, treated course, and prognosis [...] questions satisfactorily.. Ankit Hall D.O. Medical Oncologist [place], [place] Cc. Dr. Bateman. Normal [facility] Vital Signs Date Time Vital Sign Value Performing Clinician Facility 04-09-2025 16:09-0400 Body height 167.64 cm Maren James MD Work Phone: [facility] 04-09-2025 16:09-0400 Body mass index (BMI) [Ratio] 29 kg/m2 Maren James MD Work Phone: [facility] 04-09-2025 16:09-0400 Body weight 81.64 kg Maren James MD Work Phone: [facility] 04-09-2025 16:09-0400 Diastolic blood pressure 80 mm[Hg] Maren James MD Work Phone: [facility] 04-09-2025 16:09-0400 Heart rate 61 /min Maren James MD Work Phone: [facility] 04-09-2025 16:09-0400 Respiratory rate 16 /min Maren James MD Work Phone: [facility] 04-09-2025 16:09-0400 SaO2% (BldA) [Mass fraction] 99 % Maren James MD Work Phone: [facility] 04-09-2025 16:09-0400 Systolic blood pressure 122 mm[Hg] Maren James MD Work Phone: [facility] 01-15-2025 16:30-0400 Body height 167.64 cm [facility] 01-15-2025 16:30-0400 Body mass index (BMI) [Ratio] 30.8 kg/m2 [facility] 01-15-2025 16:30-0400 Body temperature 97.6 [degF] [facility] 01-15-2025 16:30-0400 Body weight 86.69 kg [facility] 01-15-2025 16:30-0400 Diastolic blood pressure 76 mm[Hg] [facility] 01-15-2025 16:30-0400 Heart rate 49 /min [facility] 01-15-2025 16:30-0400 Respiratory rate 16 /min [facility] 01-15-2025 16:30-0400 SaO2% (BldA) [Mass fraction] 100 % [facility] 01-15-2025 16:30-0400 Systolic blood pressure 114 mm[Hg] [facility] 10-02-2024 15:31-0500 Body height 167.64 cm [facility] 10-02-2024 15:31-0500 Body mass index (BMI) [Ratio] 32.1 kg/m2 [facility] 10-02-2024 15:31-0500 Body weight 90.43 kg [facility] 10-02-2024 15:31-0500 Diastolic blood pressure 82 mm[Hg] [facility] 10-02-2024 15:31-0500 Heart rate 65 /min [facility] 10-02-2024 15:31-0500 Respiratory rate 16 /min [facility] 10-02-2024 15:31-0500 SaO2% (BldA) [Mass fraction] 100 % [facility] 10-02-2024 15:31-0500 Systolic blood pressure 119 mm[Hg] [facility] 07-10-2024 10:21-0500 Body height 167.64 cm [facility] 07-10-2024 10:21-0500 Body mass index (BMI) [Ratio] 32.6 kg/m2 [facility] 07-10-2024 10:21-0500 Body temperature 97 [degF] [facility] 07-10-2024 10:21-0500 Body weight 91.68 kg [facility] 07-10-2024 10:21-0500 Diastolic blood pressure 104 mm[Hg] [facility] 07-10-2024 10:21-0500 Heart rate 62 /min [facility] 07-10-2024 10:21-0500 Respiratory rate 16 /min [facility] 07-10-2024 10:21-0500 SaO2% (BldA) [Mass fraction] 100 % [facility] 07-10-2024 10:21-0500 Systolic blood pressure 150 mm[Hg] [facility] 03-27-2024 16:25-0400 Body height 167.64 cm [facility] 03-27-2024 16:25-0400 Body mass index (BMI) [Ratio] 32.3 kg/m2 [facility] 03-27-2024 16:25-0400 Body temperature 96.9 [degF] [facility] 03-27-2024 16:25-0400 Body weight 90.74 kg [facility] 03-27-2024 16:25-0400 Diastolic blood pressure 78 mm[Hg] [facility] 03-27-2024 16:25-0400 Heart rate 53 /min [facility] 03-27-2024 16:25-0400 Respiratory rate 16 /min [facility] 03-27-2024 16:25-0400 SaO2% (BldA) [Mass fraction] 100 % [facility] 03-27-2024 16:25-0400 Systolic blood pressure 117 mm[Hg] [facility] 01-10-2024 15:58-0400 Body height 167.64 cm [facility] 01-10-2024 15:58-0400 Body mass index (BMI) [Ratio] 33.5 kg/m2 [facility] 01-10-2024 15:58-0400 Body temperature 97.2 [degF] [facility] 01-10-2024 15:58-0400 Body weight 94.34 kg [facility] 01-10-2024 15:58-0400 Diastolic blood pressure 84 mm[Hg] [facility] 01-10-2024 15:58-0400 Heart rate 68 /min [facility] 01-10-2024 15:58-0400 Respiratory rate 16 /min [facility] 01-10-2024 15:58-0400 SaO2% (BldA) [Mass fraction] 100 % [facility] 01-10-2024 15:58-0400 Systolic blood pressure 130 mm[Hg] [facility] 10-11-2023 15:51-0500 Body height 167.64 cm [facility] 10-11-2023 15:51-0500 Body mass index (BMI) [Ratio] 33.6 kg/m2 [facility] 10-11-2023 15:51-0500 Body temperature 97.9 [degF] [facility] 10-11-2023 15:51-0500 Body weight 94.57 kg [facility] 10-11-2023 15:51-0500 Diastolic blood pressure 81 mm[Hg] [facility] 10-11-2023 15:51-0500 Heart rate 72 /min [facility] 10-11-2023 15:51-0500 Respiratory rate 16 /min [facility] 10-11-2023 15:51-0500 SaO2% (BldA) [Mass fraction] 100 % [facility] 10-11-2023 15:51-0500 Systolic blood pressure 127 mm[Hg] [facility] 06-28-2023 16:00-0500 Body height 172.72 cm Maeve Sahnidank Other [employer] Other 06-28-2023 16:00-0500 Body mass index (BMI) [Ratio] 31.35 kg/m2 Maeve Sahnidank Other [employer] Other 06-28-2023 16:00-0500 Body temperature 97.3 [degF] Maeve Tiffanie Other [employer] Other 06-28-2023 16:00-0500 Body weight 93.53 kg Maeve Sahnidank Other [employer] Other 06-28-2023 16:00-0500 Diastolic blood pressure 87 mm[Hg] Maeve Sahnidank Other [employer] Other 06-28-2023 16:00-0500 Respiratory rate 18 /min Maeve Moreno Other [employer] Other 06-28-2023 16:00-0500 SaO2% (BldA) [Mass fraction] 98 % Maeve Moreno Other [employer] Other 06-28-2023 16:00-0500 Systolic blood pressure 141 mm[Hg] Maeve Moreno Other [employer] Other 04-05-2023 16:00-0400 Body height 172.72 cm Maeve Moreno Other [employer] Other 04-05-2023 16:00-0400 Body mass index (BMI) [Ratio] 31.23 kg/m2 Maeve Moreno Other [employer] Other 04-05-2023 16:00-0400 Body temperature 96.4 [degF] Maeve Moreno Other [employer] Other 04-05-2023 16:00-0400 Body weight 93.17 kg Maeve Moreno Other [employer] Other 04-05-2023 16:00-0400 Diastolic blood pressure 85 mm[Hg] Maeve Moreno Other [employer] Other 04-05-2023 16:00-0400 Respiratory rate 18 /min Maeve Moreno Other [employer] Other 04-05-2023 16:00-0400 SaO2% (BldA) [Mass fraction] 99 % Maeve Moreno Other [employer] Other 04-05-2023 16:00-0400 Systolic blood pressure 134 mm[Hg] Maeve Moreno Other [employer] Other 12-21-2022 17:00-0400 Body height 172.72 cm Maeve Moreno Other [employer] Other 12-21-2022 17:00-0400 Body mass index (BMI) [Ratio] 31.14 kg/m2 Maeve Moreno Other [employer] Other 12-21-2022 17:00-0400 Body temperature 96.5 [degF] Maeve Moreno Other [employer] Other 12-21-2022 17:00-0400 Body weight 92.9 kg Maeve Moreno Other [employer] Other 12-21-2022 17:00-0400 Diastolic blood pressure 84 mm[Hg] Maeve Moreno Other [employer] Other 12-21-2022 17:00-0400 Respiratory rate 18 /min Maeve Moreno Other [employer] Other 12-21-2022 17:00-0400 SaO2% (BldA) [Mass fraction] 98 % Maeve Moreno Other [employer] Other 12-21-2022 17:00-0400 Systolic blood pressure 138 mm[Hg] Maeve Moreno Other [employer] Other 09-28-2022 17:00-0500 Body height 172.72 cm Maeve Sahnidank Other [employer] Other 09-28-2022 17:00-0500 Body mass index (BMI) [Ratio] 31.11 kg/m2 Maeve Moreno Other [employer] Other 09-28-2022 17:00-0500 Body temperature 98.2 [degF] Maeve Moreno Other [employer] Other 09-28-2022 17:00-0500 Body weight 92.81 kg Maeve Moreno Other [employer] Other 09-28-2022 17:00-0500 Diastolic blood pressure 94 mm[Hg] Maeve Moreno Other [employer] Other 09-28-2022 17:00-0500 Respiratory rate 18 /min Maeve Moreno Other [employer] Other 09-28-2022 17:00-0500 SaO2% (BldA) [Mass fraction] 98 % Maeve Moreno Other [employer] Other 09-28-2022 17:00-0500 Systolic blood pressure 144 mm[Hg] Maeve Moreno Other [employer] Other 07-06-2022 17:00-0500 Body height 172.72 cm Maeve Moreno Other [employer] Other 07-06-2022 17:00-0500 Body mass index (BMI) [Ratio] 30.32 kg/m2 Maeve Moreno Other [employer] Other 07-06-2022 17:00-0500 Body temperature 97.1 [degF] Maeve Moreno Other [employer] Other 07-06-2022 17:00-0500 Body weight 90.45 kg Maeve Moreno Other [employer] Other 07-06-2022 17:00-0500 Diastolic blood pressure 87 mm[Hg] Maeve Moreno Other [employer] Other 07-06-2022 17:00-0500 Respiratory rate 18 /min Maeve Moreno Other [employer] Other 07-06-2022 17:00-0500 SaO2% (BldA) [Mass fraction] 99 % Maeve Moreno Other [employer] Other 07-06-2022 17:00-0500 Systolic blood pressure 128 mm[Hg] Maeve Moreno Other [employer] Other 03-23-2022 16:40-0400 Body height 172.72 cm Maeve Moreno Other [employer] Other 03-23-2022 16:40-0400 Body mass index (BMI) [Ratio] 30.47 kg/m2 Maeve Moreno Other [employer] Other 03-23-2022 16:40-0400 Body temperature 96.9 [degF] Maeve Moreno Other [employer] Other 03-23-2022 16:40-0400 Body weight 90.9 kg Maeve Moreno Other [employer] Other 03-23-2022 16:40-0400 Diastolic blood pressure 80 mm[Hg] Maeve Moreno Other [employer] Other 03-23-2022 16:40-0400 Respiratory rate 18 /min Maeve Moreno Other [employer] Other 03-23-2022 16:40-0400 SaO2% (BldA) [Mass fraction] 99 % Maeve Moreno Other [employer] Other 03-23-2022 16:40-0400 Systolic blood pressure 116 mm[Hg] Maeve Moreno Other [employer] Other 08-09-2021 17:00-0500 Body height 172.72 cm Maeve Moreno Other [employer] Other 08-09-2021 17:00-0500 Body mass index (BMI) [Ratio] 30.53 kg/m2 Maeve Moreno Other [employer] Other 08-09-2021 17:00-0500 Body weight 91.08 kg Maeve Moreno Other [employer] Other 08-09-2021 17:00-0500 Diastolic blood pressure 80 mm[Hg] Maeve Moreno Other [employer] Other 08-09-2021 17:00-0500 Respiratory rate 18 /min Maeve Moreno Other [employer] Other 08-09-2021 17:00-0500 SaO2% (BldA) [Mass fraction] 99 % Maeve Sahnidank Other [employer] Other 08-09-2021 17:00-0500 Systolic blood pressure 142 mm[Hg] Maeve Moreno Other [facility] [employer] Other Encounters Encounter Date Encounter Type Care Provider Facility Start: 04-09-2025 End: 04-09-2025 ambulatory Maren James MD Work Phone: [facility] Work Phone: Start: 04-09-2025 End: 04-09-2025 Patient encounter procedure [facility]ve Moreno [facility] Work Phone: Start: 01-15-2025 End: 01-15-2025 ambulatory [facility] Work Phone: Start: 01-15-2025 End: 01-15-2025 Patient encounter procedure [facility] Work Phone: Start: 10-02-2024 End: 10-02-2024 ambulatory [facility] Work Phone: Start: 10-02-2024 End: 10-02-2024 Patient encounter procedure [facility] Work Phone: Start: 07-10-2024 End: 07-10-2024 ambulatory [facility] Work Phone: Start: 07-10-2024 End: 07-10-2024 Patient encounter procedure [facility] [place] Work Phone: Start: 03-27-2024 End: 03-27-2024 ambulatory [facility] Work Phone: Start: 03-27-2024 End: 03-27-2024 Patient encounter procedure [facility] Work Phone: Start: 03-20-2024 Non-patient / Non-visit [facility] Work Phone: Start: 01-10-2024 End: 01-10-2024 ambulatory [facility] Work Phone: Start: 01-10-2024 End: 01-10-2024 Patient encounter procedure [facility] Work Phone: Start: 10-11-2023 End: 10-11-2023 ambulatory [facility] Work Phone: Start: 10-11-2023 End: 10-11-2023 Patient encounter procedure [facility] Work Phone: Start: 06-28-2023 End: 06-28-2023 ambulatory Sekouam Boraashi Other [employer] Other Start: 06-28-2023 Office outpatient vi sit 15 minutes Essam Elashi [facility] Start: 06-26-2023 End: 06-26-2023 ambulatory Essam Elashi Other [employer] Other Start: 06-26-2023 Telephone encounter Essam Elashi [facility] Start: 05-07-2023 End: 05-07-2023 ambulatory Essam Elashi Other [employer] Other Start: 05-07-2023 Telephone encounter Essam Elashi [facility] Start: 04-05-2023 End: 04-05-2023 ambulatory Essam Elashi Other [employer] Other Start: 04-05-2023 Office outpatient vi sit 25 minutes Essam Elashi [facility] Start: 03-27-2023 End: 03-27-2023 ambulatory Essam Elashi Other [employer] Other Start: 03-27-2023 Telephone encounter Essam Elashi [facility] Start: 03-12-2023 End: 03-12-2023 ambulatory Essam Elashi Other [employer] Other Start: 03-12-2023 Telephone encounter Essam Elashi [facility] Start: 12-21-2022 End: 12-21-2022 ambulatory Maeve Moreno Other [employer] Other Start: 12-21-2022 Office outpatient vi sit 25 minutes Sekouparam Tiffanie [facility] Start: 12-18-2022 End: 12-18-2022 ambulatory Maeve Moreno Other [employer] Other Start: 12-18-2022 Telephone encounter Sekouparam Tiffanie [facility] Start: 12-13-2022 End: 12-14-[address] MAEVE MORENO Facility:[facility] Start: 11-14-2022 End: 11-15-[address] MAREN JAMES . Facility:[facility] Start: 11-13-2022 Encounter for genera l adult medical examination without abnormal findings DR MAREN JAMES . [facility] Start: 11-10-2022 End: 11-11-[address] MAREN JAMES . Facility:[facility] Start: 11-10-2022 End: 11-11-2022 Encounter for general adult medical examination without abnormal findings DR MAREN JAMES . Facility:[facility] Start: 09-28-2022 End: 09-28-2022 ambulatory Maeve Moreno Other [employer] Other Start: 09-28-2022 Office outpatient vi sit 25 minutes Maeve Moreno [facility] Start: 09-26-2022 End: 09-27-[address] MAEVE MORENO Facility:[facility] Start: 07-06-2022 End: 07-06-2022 ambulatory Maeve Moreno Other [employer] Other Start: 07-06-2022 Office outpatient vi sit 25 minutes Maeve Moreno [facility] Start: 07-04-2022 End: 07-04-2022 ambulatory Maeve Moreno Other [employer] Other Start: 07-04-2022 Telephone encounter Maeve Moreno [facility] Start: 06-29-2022 End: 06-30-[address] MAEVE MORENO Facility:[facility] Start: 05-25-2022 End: 05-26-[address] MAEVE MORENO Facility:[facility] Start: 04-25-2022 End: 04-26-[address] MAEVE MORENO Facility:[facility] Start: 04-17-2022 End: 04-17-2022 ambulatory Maeve Moreno Other [employer] Other Start: 04-17-2022 Telephone encounter Maeve Moreno [facility] Start: 03-23-2022 End: 03-23-2022 ambulatory Maeve Moreno Other [employer] Other Start: 03-23-2022 Office outpatient vi sit 25 minutes Meave Moreno [facility] Start: 03-22-2022 End: 03-23-[address] MAEVE MORENO Facility:[facility] Start: 02-06-2022 End: 02-07-[address] MAEVE MORENO Facility:[facility] Start: 01-13-2022 End: 01-14-[address] MAEVE MORENO [employer] [employer] [facility] Other Start: 01-13-2022 Telephone encounter Maeve Moreno [facility] Start: 10-04-2021 End: 10-04-2021 ambulatory Maeve Moreno Other [employer] Other Start: 10-04-2021 Telephone encounter Sekouparam Tiffanie [facility] Start: 09-14-2021 End: 09-14-2021 ambulatory Maeve Moreno Other [employer] Other Start: 09-14-2021 Telephone encounter Sekouparam Tiffanie [facility] Start: 08-09-2021 End: 08-09-2021 ambulatory Maeve Moreno Other [employer] Other Start: 08-09-2021 Office outpatient vi sit 25 minutes Maeve Moreno [facility] Start: 07-26-2021 End: 07-26-2021 ambulatory Maeve Moreno Other [employer] Other Start: 07-26-2021 Telephone encounter Maeve Moreno [facility] [employer] [facility] Start: 09-28-2020 End: 09-28-2020 ambulatory Maeve Moreno Other [employer] Other Start: 09-28-2020 Telephone encounter Maeve Moreno [facility] Plan of Treatment Date Care Activity Detail Author Comprehensive metabo lic 1999 panel - Serum or Plasma [facility] C enter Comprehensive metabo lic 1999 panel - Serum or Plasma [facility] C enter Comprehensive metabo lic 1999 panel - Serum or Plasma [facility] C enter Comprehensive metabo lic 1999 panel - Serum or Plasma [facility] C enter Comprehensive metabo lic 1999 panel - Serum or Plasma [facility] C enter Comprehensive metabo lic 1999 panel - Serum or Plasma [facility] C enter Comprehensive metabo lic 1999 panel - Serum or Plasma [facility] C enter Phospholipase A2 rec eptor IgG Ab [Units/volume] in Serum by Immunoassay [facility] Payers Date Payer Category Payer Unknown [id number] 1981 Unknown [id number] 1981 Unknown [id number] 1981 Unknown [id number] 1981 Unknown [id number] 1981 Unknown [id number] 1981 Unknown [id number] 1981 Unknown [id number] 1981 Unknown [id number] 1981 Unknown [id number] 1959 Private Health Insurance [id number] Private Health Insurance [employer] [id number] Self-pay Self Pay [id number] Unknown [facility] [id number] Social History Date Type Detail Facility Unknown if ever smoked [employer] Other Sex Assigned At Sex Assigned At Bir th [employer] Other Start: 10-11-2023 End: 10-02-2024 Tobacco smoking status NHIS Never smoked tobacco (finding) [facility] Start: 1980 Sex Assigned At Female F [facility] Start: 07-10-2024 End: 01-15-2025 Sex Female (finding) [facility] Clinical Notes 09-28-2020 to 01-15-2025 Note Date & Type Note Facility 01-15-2025 Evaluation note Diagnosis Onset Date Resolution 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 January 15, 2025 4 :03pm CKD (chronic kidney disease) stage 4, GFR 15-29 ml/min acute January 15, 2025 4 :03pm Factor V Leiden acute January 15, 2025 4:03pm Hypertensive chronic kidney disease with stage 1 through stage 4 chronic ki acute January 15, 2025 4 :03pm 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 April 09 4:08pm CKD (chronic kidney disease) stage 4, GFR 15-29 ml/min acute April 09 4:08pm Factor V Leiden acute April 092024 4:08pm Hypertensive chronic kidney disease with stage 1 through stage 4 chronic ki acute April 09 4:08pm [facility] Work Phone: 1(461) 905-812111-21-2024 Evaluation note* Diagnosis Onset Date Resolution Status Admit Date 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 Novem 2023 3:50pm CKD (chronic kidney disease) stage 4, GFR 15-29 ml/min acute Novemb er 2023 3:50pm Factor V Leiden acute July 10, 2024 3:50pm Hypertensive chronic kidney disease with stage 1 through stage 4 chronic ki acute June 3:50pm 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 Febru joellen 2024 3:29pm CKD (chronic kidney disease) stage 4, GFR 15-29 ml/min acute Februa ry 2024 3:29pm Factor V Leiden acute October 02, 2024 3:29pm Hypertensive chronic kidney disease with stage 1 through stage 4 chronic ki acute September 3:29pm [facility] Work Phone: 1(784) 764-216911-09-2023 Evaluation note* Encounter Date Diagnosis Assessment Notes [...] and now being monitoring every 3-month started Novmber 2021 per manufacture recommendation. She was informed that they may need EDITOR DEPARTMENT in near future. Will refer to transplant [...] more than 140s. She has no proteinuria. [employer] Other 09-18-2023 Evaluation note* Encounter Date Diagnosis Assessment Notes Treatment Notes Treatment Clinical Notes Apr, Polycystic dysplastic kidney (ICD-10 - Q61.3) [employer] Other 08-17-2023 Evaluation note* Encounter Date Diagnosis [...] She was informed that they may need EDITOR DEPARTMENT in near future. Will refer to transplant [...] more than 40s. She has no proteinuria. [employer] Other 05-04-2023 Evaluation note* Encounter Date Diagnosis [...] She was informed that they may need EDITOR DEPARTMENT in near future. Will refer to transplant [...] more than 140s. She has no proteinuria. [employer] Other 02-09-2023 Evaluation note* Encounter Date Diagnosis [...] She was informed that they may need EDITOR DEPARTMENT in near future. Will refer to transplant [...] to check blood pressure at my office. [employer] Other 11-17-2022 Evaluation note* Encounter Date Diagnosis [...] She was informed that they may need EDITOR DEPARTMENT in near future. Will refer to transplant [...] She has no bleeding events or hematuria. [employer] Other 08-04-2022 Evaluation note* Encounter Date Diagnosis [...] She was informed that they may need EDITOR DEPARTMENT in near future. Will refer to transplant [...] She has no bleeding events or hematuria. [employer] Other 05-27-2022 Evaluation note* Encounter Date Diagnosis Assessment Notes Treatment Notes Treatment Clinical Notes December, Polycystic dysplastic kidney (ICD-10 - Q61.3) December, CKD (chronic kidney disease) stage 2, GFR 60-89 ml/min (ICD-10 - N18.2) December, Factor V Leiden (ICD-10 - D68.51) [employer] Other 02-09-2021 Evaluation note* Encounter Date Diagnosis Assessment Notes Treatment Notes Treatment Clinical Notes Sep, Polycystic dysplastic kidney (ICD-10 - Q61.3) [employer] Other Evaluation note[facility] [employer] Other evaluation noteNo InformationNort [employer] Other Evaluation note* Diagnosis Onset Date Resolution Status 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 CKD stage G4/A3, GFR 15-29 a nd albumin creatinine ratio >300 mg/g acute Factor V Leiden acute [id number] acute [facility] Work Phone: Evaluation note* Diagnosis Onset Date Resolution Status 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 CKD stage G4/A3, GFR 15-29 a nd albumin creatinine ratio >300 mg/g acute Factor V Leiden acute [id number] acute Polycystic kidney disease no neactive 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 CKD (chronic kidney disease) stage 4, GFR 15-29 ml/min acute CKD stage G4/A3, GFR 15-29 a nd albumin creatinine ratio >300 mg/g acute Factor V Leiden acute [id number] acute Polycystic dysplastic kidney acute [facility] Work Phone: Evaluation note* Diagnosis Onset Date Resolution Status Admit Date 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 Novem rika 2023 3:50pm CKD (chronic kidney disease) stage 4, GFR 15-29 ml/min acute Novemb er 2023 3:50pm Factor V Leiden acute July 10, 2024 3:50pm Hypertensive chronic kidney disease with stage 1 through stage 4 chronic ki acute June 3:50pm [facility] Work Phone: Evaluation note* Diagnosis Onset Date Resolution Status Admit Date 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 December 192024 4:03pm CKD (chronic kidney disease) stage 4, GFR 15-29 ml/min acute January 15 4:03pm Factor V Leiden acute January 15, 2025 4:03pm Hypertensive chronic kidney disease with stage 1 through stage 4 chronic ki acute January 15, 2025 4 :03pm [facility] Work Phone: History general Narrative - ReportedN[facility] [employer] Other History general Narrative - Reported* Type Description Date Medical History PCOS Medical History previous blood clot in leg X 2 Medical History CAPILLARY HEMANGIOMA Medical History FACTOR V LEIDEN MUTATION Surgical History WISDOM TEETH X4 Hospitalization History CHILD X 2 Hospitalization History BLOOD CLOT [facility] Other History general Narrative - Reported* Type Description Date Medical History PCOS Medical History previous blood clot in leg X 2 Medical History CAPILLARY HEMANGIOMA Medical History FACTOR V LEIDEN MUTATION Surgical History WISDOM TEETH X4 Surgical History EVLT ON RIGHT LEG Hospitalization History CHILD X 2 Hospitalization History BLOOD CLOT [employer] Other Reason for referral (narrative)No reason for referral information availablePark[facility] Work Phone: Summary Purpose Family History Relationship Condition Age [...] creatinine ratio >300 mg/g Factor V Leiden [id number] Chief Complaint RENAL 3 MONTH F/U Reason for Visit ADPKD (autosomal dom inant polycystic kidney disease) CKD stage G4/A3, GFR 15-29 and albumin creatinine ratio >300 mg/g Factor V Leiden [id number] Chief Complaint RENAL 3 MONTH F/U RENAL 3 MONTH F/U Reason for Visit ADPKD (autosomal dom inant polycystic kidney disease) CKD stage G4/A3, GFR 15-29 and albumin creatinine ratio >300 mg/g Factor V Leiden [id number] Polycystic kidney disease ADPKD (autosomal dominant polycystic kidney disease) CKD (chronic kidney disease) stage 4, GFR 15-29 ml/min CKD stage G4/A3, GFR 15-29 and albumin creatinine ratio >300 mg/g Factor V Leiden [id number] Polycystic dysplastic kidney Chief Complaint Admit Date [...] 4 chronic ki January 15, 2025 4:03pm Chief Complaint Admit Date 3 months January 15, 2025 4:03p m RENAL 3 MONTH F/U April 09, 2025 4: 08pm Reason for Visit Admit Date ADPKD (autosomal dominant polycystic 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) January 15, 2025 4:03pm CKD (chronic kidney disease) stage 4, GF R 15-29 ml/min January 15, 2025 4:03pm Factor V Leiden January 15, 2025 4:03p m Hypertensive chronic kidney disease with stage 1 through stage 4 chronic ki January 15, 2025 4:03pm ADPKD (autosomal dominant polycystic 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) April 09, 2025 4:08pm CKD (chronic kidney disease) stage 4, GF R 15-29 ml/min April 09, 2025 4:08pm Factor V Leiden April 09, 2025 4: 08pm Hypertensive chronic kidney disease with stage 1 through stage 4 chronic ki April 09, 2025 4:08pm Additional Source Comments INFORMATION SOURCE (unrecogn ized section and content) DATE CREATED AUTHOR 09/06/2019 [facility] DATE CREATED AUTHOR AUTHOR'S ORGANIZ ATION 12/17/2022 [facility] REASON FOR VISIT (unrecogniz ed [...] January 15, 2025 End: January 15, 2025 Team Status: Inactive Member Role Status Sheridan James MD Primary Care Provider Active Start: April 09, 2025 End: April 09, 2025 Maeve Moreno MD Attending Provider Active Star t: April 09, 2025 End: April 09, 2025 Goals (unrecognized section and content) Goals [...] BE BASED ON THE PRIMARY CLINICAL RECORDS. [employer] provides no warranty or guarantee of the accuracy or completeness of information in this document.
== END 2025-04-16 08:19 | disposition home or self-care (01) ==
LOC: US 08:18
PROVIDERS: PCP Family Medicine; Visit Provider Family Medicine
DX: R10.32 Left lower quadrant pain (principal); N83.291 Other ovarian cyst, right side
CPT/HCPCS: 76830; 76856

== ENCOUNTER 2025-06-19 07:18 | Outpatient (OUT) | payer OTHER, SELFPAY ==
--- OUTSIDE RECORDS SUMMARY | 2025-06-19 07:21 | XMS_ITS | CCD ---
Author Organization [facility] CliniSyfl Care Team Providers Care Kier Hand Name Role Phone Maeve Becerra Unavailable DR MAEVE BECERRA Admitting Unavailable DR MAEVE BECERRA Consulting Unavailable DR MAREN GONZALEZ Primary Care Unavailable TIFFANIE, DR MCFARLANE Attending Unavailable TIFFANIE, DR MCFARLANE Consulting Unavailable TIFFANIE, DR MCFARLANE Attending Unavailable DR MAEVE BECERRA Admitting Unavailable DR MAREN GONZALEZ Primary Care Unavailable ITFFANIE, DR MCFARLANE Consulting Unavailable DR MAEVE BECERRA Attending Unavailable DR MAREN GONZALEZ Primary Care Unavailable DR MAEVE BECERRA Admitting Unavailable TIFFANIE, DR MCFARLANE Consulting Unavailable TIFFANIE, DR MCFARLANE Attending Unavailable DR MAREN GONZALEZ Primary Care Unavailable DR MAEVE BECERRA Admitting Unavailable TIFFANIE, DR MCFARLANE Consulting Unavailable DR MAEVE BECERRA Attending Unavailable DR MAREN GONZALEZ Primary Care Unavailable TIFFANIE, DR MCFARLANE Admitting Unavailable DR MAREN GONZALEZ Consulting Unavailable DR MAREN GONZALEZ Attending Unavailable DR MAREN GONZALEZ Admitting Unavailable DR MAREN OGNZALEZ Primary Care Unavailable DR MAREN GONZALEZ Consulting Unavailable DR MAREN GONZALEZ Attending Unavailable HODR MAREN Tate Admitting Unavailable DR MAREN GONZALEZ Primary Care Unavailable DR JONATHON HUBER Consulting Unavailable DR MAEVE BECERRA Consulting Unavailable DR MAEVE BECERRA Attending Unavailable DR MAREN GONZALEZ Primary Care Unavailable DR MAEVE BECERRA Admitting Unavailable TIFFANIE, DR MCFARLANE Consulting Unavailable DR MAEVE BECERRA Attending Unavailable DR MAREN GONZALEZ Primary Care Unavailable DR MAEVE BECERRA Admitting Unavailable DR MAEVE BECERRA Admitting Unavailable DR MAEVE BECERRA Consulting Unavailable DR MAREN GONZALEZ Primary Care Unavailable TIFFANIE, DR MCFARLANE Attending Unavailable Maren Ortiz MD Primary Care Provider [phone] Maeve Becerra MD Attending Provider [phone] Maren Ortiz MD Primary Care Provider [phone] SANDY GARZA Attending Unavailable Allergies Allergy ClassificationReported Allergen(s)Allergy TypeDate of OnsetReaction(s) Facility (19 sources)Sulfonamides (Antibiotic)Propensity [facility] Other (2 sources)Sulfonamides (Antibiotic)Drug Nxpnqxn23-63-0180[facility] Medications Current Medications MedicationDrug Class(es)DatesSig (Normalized)Sig (Original)cetirizine hydrochloride 10 mg oral tablet (20 sources)Histamine-1 Receptor AntagonistStart: 04-23-5323kcuf 1 tablet by mouth once dailyCetirizine (Zyrtec) 10 mg tablet Active 10 MG PO Daily October 11, 2023 1:00am FreeTextSi tablet on the tongue and allow to dissolve Orally Once a day; Note: Source Status: Taking; Provider: Tiffanie Mcfarlane ( ) Complies with drug therapycetirizine (ZyrTEC) 10 MG chewable tablet 1 (one) time each day at the same time Activetake 1 tablet by mouth once daily ZyrTEC Allergy 10 MG 1 tablet on the tongue and allow to dissolve Orally Once a day Activepantoprazole 40 mg delayed release oral tablet (15 sources)Proton Pump InhibitorStart: 10-11-2023 End: 95-64-0327hfdd 1 tablet by mouth once dailyPantoprazole 40 mg tablet,delayed release (DR/EC) Active 40 MG PO Daily March 27, 2024 4:26pm Complies with drug therapyStart: 10-11-2023 End: 95-09-6805Ckhjricekzay Discontinued MG PO October 11, 2023 1:00am March 27, 2024 4:27pmrivaroxaban 20 mg oral tablet (20 sources)Factor Xa InhibitorStart: 50-84-1959exxb 1 tablet by mouth once daily at mealtimeRivaroxaban 20 mg tablet Active 20 MG PO Daily October 11, 2023 1:00am FreeTextSi tablet with food Orally Once a day; Note: Source Status: Taking; Provider: Tiffanie Richardson Complies with drug therapytolvaptan 60 mg oral tablet (20 sources)Vasopressin V2 Receptor AntagonistStart: 01-15-2025 End: 73-20-7841Ergbrrzlp (Polycys Kidney Dis) 60 mg (AM)/ 30 mg (PM) tablets, sequential Active 0 PO per package directions February 12, 2025 10:47am PO PER PKG DIR Complies with drug therapyStart: 07-10-2024 End: 74-29-5895Riujcrpex (Polycys Kidney Dis) (Jynarque) 45 mg (AM)/ 15 mg (PM) tablets, sequential Discontinued 0PO per package directions September 29, 2024 4:53pm January 15, 2025 4:50pm PO PER PKG DIRStart: 06-04-2024 End: 61-47-1635eqer 1 tablet by mouth every eight hours in the morningTolvaptan (Polycys Kidney Dis) (Jynarque) 90 mg (AM)/ 30 mg (PM) tablets, sequential Discontinued 0.ROUTE .COMPLEX June 04, 2024 4:44pm July 10, 2024 5:33pm TAKE ONE 90MG TABLET BY MOUTH UPON AWAKING, AND ONE 30MG TABLET BY MOUTH 8 HOURS LATERStart: 06-04-2024 End: 14-22-2670rarj 1 tablet by mouth every eight hours in the morningTolvaptan (Polycys Kidney Dis) (Jynarque) 90 mg (AM)/ 30 mg (PM) tablets, sequential Discontinued 0.ROUTE .COMPLEX June 04, 2024 3:44pm July 10, 2024 4:33pm TAKE ONE 90MG TABLET BY MOUTH UPON AWAKING, AND ONE 30MG TABLET BY MOUTH 8 HOURS LATERStart: 04-07-2024 End: 11-02-9281prxp 1 tablet by mouth every eight hours in the morningTolvaptan (Polycys Kidney Dis) (Jynarque) 90 mg (AM)/ 30 mg (PM) tablets, sequential Discontinued 0.ROUTE .COMPLEX April 07, 2024 11:41am June 04, 2024 4:45pm TAKE ONE 90 MG TABLET BY MOUTH UPON WAKING, THEN TAKE ONE 30 MG TABLET BY MOUTH 8 HOURS LATER EVERY DAYStart: 04-07-2024 End: 68-95-5268xjcd 1 tablet by mouth every eight hours in the morningTolvaptan (Polycys Kidney Dis) (Jynarque) 90 mg (AM)/ 30 mg (PM) tablets, sequential Discontinued 0.ROUTE .[facility] April 07, 2024 10:41am June 04, 2024 3:45pm TAKE ONE 90 MG TABLET BY MOUTH UPON WAKING, THEN TAKE ONE 30 MG TABLET BY MOUTH 8 HOURS LATER EVERY DAYStart: 04-06-2024 End: 53-23-0952xjxr 1 tablet by mouth every eight hours in the morningTolvaptan (Polycys Kidney Dis) (Jynarque) 90 mg (AM)/ 30 mg (PM) tablets, sequential Discontinued 0.ROUTE .[facility] April 06, 2024 9:31am April 07, 2024 11:41am TAKE ONE 90 MG TABLET BY MOUTH UPON WAKING, THEN TAKE ONE 30 MG TABLET BY MOUTH 8 HOURS LATER EVERY DAYStart: 04-06-2024 End: 09-51-4552nakv 1 tablet by mouth every eight hours in the morningTolvaptan (Polycys Kidney Dis) (Jynarque) 90 mg (AM)/ 30 mg (PM) tablets, sequential Discontinued 0.ROUTE .[facility] 56 April 06, 2024 8:31am April 07, 2024 10:41am TAKE ONE 90 MG TABLET BY MOUTH UPON WAKING, THEN TAKE ONE 30 MG TABLET BY MOUTH 8 HOURS LATER EVERY DAYStart: 10-11-2023 End: 05-84-5887Rsultrnax (Polycys Kidney Dis) (Jynarque) 90 mg (AM)/ 30 mg (PM) tablets, sequential Discontinued 0PO per package directions December 23, 2023 11:04pm April 06, 2024 9:33am PO PER PKG DIRStart: 38-14-5500Vncatawx 90 & 30 MG TAKE ONE 90 MG TABLET BY MOUTH UPON WAKING AND TAKE 30 MG TABLET 8 HOURS LAT ER Orally bid for 14 days Mar, Not-TakingStart: 09-14-2021 End: 68-98-5825Jdujuivv 90 & 30 MG 90 mg QAM and 30 mg QPM Orally Twice a day for 14 days Aug, ActiveTolvaptan (Jynarque) 90 & 30 MG tablet therapy pack as directed Orally Activetake 1 tablet by mouth every eight hoursJynarque 90 & 30 MG TAKE ONE 90 MG TABLET BY MOUTH UPON WAKING AND TAKE 30 MG TABLET 8 HOURS LATER ActiveJynarque 90 & 30 MG TAKE ONE 90 MG TABLET BY MOUTH UPON WAKING AND TAKE 30 MG TABLET 8 HOURS LATER Orally bid for 90 days Active Jynarque 90 & 30 MG TAKE ONE 90 MG TABLET BY MOUTH UPON WAKING AND TAKE 30 MG TABLET 8 HOURS LATER Orally bid for 14 days ActiveJynarque 90 & 30 MG TAKE ONE 90MG TABLET BY MOUTH UPON WAKING AND TAKE 30 MG TABLET 8 HOURS LATER Orally Once a day for 90 day(s) Activetake 1 tablet by mouth every eight hoursJynarque 90 & 30 MG TAKE ONE 90MG TABLET BY MOUTH UPON WAKING, AND THEN ONE 30MG TABLET 8 HOURSLATER for 90 days Activetake 1 tablet by mouth every eight hoursJynarque 90 & 30 MG TAKE ONE 90MG TABLET BY MOUTH UPON WAKING, AND THEN ONE 30MG TABLET 8 HOURSLATER for 28 ActiveJynarque 90 & 30 MG as directed Orally ActiveJynarque 60 & 30 MG TAKE ONE 60MG TABLET BY MOUTH UPON WAKING, AND TAKE ONE 30MG TABLET BY MOUTH 8 HOURS LATER orally bid for 28 day(s) Not-TakingJynarque 90 & 30 MG 90 mg QAM and 30 mg QPM Orally Twice a day for 90 day(s) ActiveJynarque 60 & 30 MG TAKE ONE 60MG TABLET BY MOUTH UPON WAKING, AND TAKE ONE 30MG TABLET BY MOUTH 8 HOURS LATER orally bid for 28 day(s) Active Completed/Discontinued Medications MedicationDrug Class(es)DatesSig (Normalized)Sig (Original)Triamcinolone (17 sources)CorticosteroidStart: 03-79-7734MUYCGBQ - 10 mg Mar, 40 mg Problems Active Problems Problem ClassificationProblemDateDocumented DateEpisodic/ChronicAbdominal pain (2 sources)Pain in female pelvis; Translations: [Pelvic and perineal pain] 28-71-8670OgfnommjXxarqa neoplasm of uterus (2 sources)Uterine leiomyoma; Translations: [Leiomyoma of uterus, unspecified] 07-93-7277IjzagvheCcfdhgi kidney disease (20 sources)Chronic kidney disease stage 2; Translations: [Chronic kidney disease, stage 2 (mild)]Onset: 08-09-2021 Resolved: 75-58-2693NxpavpmSgqjvyk on above:Renal function has been quite variable since she was started on Jynarque. Currently creatinine 2.2 mg/dL, it has been variable between 1.6 to 2 mg/dL over the last year according to volume status andstate of hydration. Patient was advised to increase water intake since she is expected to have moreurine output with tolvaptan.Coagulation and hemorrhagic disorders (20 sources)Factor V Leiden mutation; Translations: [Activated protein C resistance]Onset: 08-09-2021 Resolved: 54-40-5673VwwiqsiGeqowws on above:Patient has been on Xarelto for factor V. Leiden mutation. She has no recent blood clots. She has no bleeding events or hematuria.Genitourinary congenital anomalies (20 sources)Multiple congenital cysts of kidney; Translations: [Polycystic kidney, unspecified]Onset: 08-09-2021 Resolved: 30-25-5829UpqrbrzMffsqqz on above:She was started Jynarque 45 &30 mg daily on October 13, [...] completed monitoring LFTs monthly for total 18 monthsand now being monitoring every 3-month started 2021 per manufacture recommendation. She wasinformed that they may need INSURANCE FOLLOW UP REPRESENTATIVE in near future. Will refer to transplant evaluation once GFR < 20 ml/min. She does not have a donor.Hypertension with complications and secondary hypertension (19 sources)Chronic kidney disease due to hypertension; Translations: [Hypertensive chronic kidney disease withstage 1 through stage 4 chronic kidney disease, or unspecified chronic kidney disease]99-25-3909FmziwbgHizby circulatory disease (4 sources)Elevated blood-pressure reading, without diagnosis of hypertension EpisodicOther screening for suspected conditions (not mental disorders or infectious disease) (4 sources)Encounter for screening mammogram for malignant neoplasm of breast; Translations: [ENC SCR MAMMO MALIG NEOPLASM BREAST]Onset: 94-51-6366Pogpteoo Residual codes; unclassified (1 source)Family history of malignant neoplasm, unspecified; Translations: [FAM HX MALIGNANT NEOPLASM UNS]Onset: 87-77-5697Anujbrqq Past or Other Problems Problem ClassificationProblemDateDocumented DateEpisodic/ChronicAcute and unspecified renal failure (2 sources)Acute kidney failure, unspecified; Translations: [ACUTE KIDNEY FAILURE UNSPECIFIED]Onset: 08-09-2021 Resolved: 07-70-3487GjgiledsNxkdnuek; including migraine (1 source)HeadacheOnset: 08-09-2021 Resolved: 72-20-4134Uqdhwvml Results Test NameValueInterpretationReference RangeFacilityPTH INTACTon 35-30-3483OTB, Vehked89 pg/dTIctqqe09-05Fld St[facility] HospitalComment on above:Performed By: #### LIPID, CMP, TSH, T7 #### [facility] [address] [address] [address] Jessica MosquedaHEMOGRAM AND PLATELon 99-13-4964Njbbkyxzwa (Bld) [Volume fraction]41.0 %Tvaczc91.0-48.0The [facility] HospitalComment on above:Performed By: #### HH #### [facility] [address] [address] [address] Jessica MosquedaHemoglobin (Bld) [Mass/Vol]13.0 g/iXJqpukb91.0-16.0The [facility] HospitalComment on above:Performed By: #### HH #### [facility] [address] [address] [address] Jessica Ramesh (RBC) [Entitic mass]28.6 onTlnrya75.7-34.0The [facility] HospitalComment on above:Performed By: #### HH #### [facility] [address] [address] [address] Jessica Ramesh (RBC) [Mass/Vol]31.7 g/aGKhnvzx68.9-35.2The [facility] HospitalComment on above:Performed By: #### HH #### [facility] [address] [place] [address] Dr. Jessica RameshV (RBC) [Entitic vol]90.3 yKYfawtw87.0-99.0The [facility] HospitalComment on above:Performed By: #### HH #### [facility] [address] [place] [address] Dr. Jessica TaylorT133 103/ulCritically lqm839-225Kso St. [facility] HospitalComment on above:Performed By: #### HH #### [facility] [address] [place] [address] Dr. Jessica MosquedaRBC4.54 106/ulNormal4.20-5.40The [facility] HospitalComment on above:Performed By: #### HH #### [facility] [address] [place] [address] Dr. Jessica MosquedaWBC9.0 103/ulNormal4.0-11.0The [facility] HospitalComment on above: Performed By: #### HH #### [facility] [address] [place] [address] Dr. Jessica MosquedaPHOSPHORUSon 24-27-1508Tmrtjaojn [Mass/Vol]4.3 mg/dLNormal2.6-4.[address] [facility] HospitalComment on above:Performed By: #### PTHINT #### [facility] [address] [place] [address] Dr. Jessica Patterson 14(COMP METB)on 77-46-7332Argjrjh [Mass/Vol]3.8 g/dLNormal 3.4-5.0The [facility] HospitalComment on above:Performed By: #### PTHINT #### [facility] [address] [place] [address] Dr. Jessica MosquedaAlbumin/Globulin [Mass ratio]1.1 {ratio}NormalThe St. Francis HospitalComment on above:Performed By: #### PTHINT #### [facility] [address] [address] [address] Jessica GormanP [Catalytic activity/Vol]36 U/LCritically dfc75-026Xtq St. [facility] HospitalComment on above:Performed By: #### PTHINT #### [facility] [address] [address] [address] Jessica GormanT [Catalytic activity/Vol]14 U/QNvxiwh01-61Bkq St. [facility] HospitalComment on above:Performed By: #### PTHINT #### [facility] [address] [address] [address] Jessica Stuarton gap [Moles/Vol]11.9 mmol/LNormalLakehealth [facility] Comment on above:Performed By: #### PTHINT #### [facility] [address] [address] [address] Jessica MosquedaAST [Catalytic activity/Vol]13 U/LCritically ibh11-40Oxu St. [facility] HospitalComment on above:Performed By: #### PTHINT #### [facility] [address] [address] [address] Jessica MosquedaBilirubin [Mass/Vol]0.3 mg/dLNormal0.2-1.0[facility] Comment on above:Performed By: #### PTHINT #### [facility] [address] [place] [address] Dr. Jessica MosquedaCalcium [Mass/Vol]9.0 mg/dLNormal8.5-10.1[facility] Comment on above:Performed By: #### PTHINT #### [facility] [address] [address] [address] Jessica MosquedaChloride [Moles/Vol]107 mmol/EIzpgnu77-596Onj [facility] Comment on above:Performed By: #### PTHINT #### [facility] [address] [address] [address] Jessica MosquedaCO2 [Moles/Vol]28.1 mmol/ROfgjew47.0-32.0The [facility] Comment on above:Performed By: #### PTHINT #### [facility] [address] [address] [address] Jesscia MosquedaCreatinine [Mass/Vol]2.10 mg/dLCritically high0.55-1.02[facility] CenterComment on above:Performed By: #### PTHINT #### [facility] [address] [address] [address] Lopez ChangEGFR-AF MTILKHXY40 mL/min/1.72q7Slbtydaeky low>=60The [facility] HospitalComment on above:Performed By: #### PTHINT #### [facility] [address] [address] [address] Lopez ChangEGFR-NON AF ACXPOUDN63 mL/min/1.39q4Wibtschhoh low>=60The [facility] HospitalComment on above:Performed By: #### PTHINT #### [facility] [address] [place] [address] Dr. Jessica MosquedaGlobulin (S) [Mass/Vol]3.6 g/dLNormalThe St. Francis HospitalComment on above:Performed By: #### PTHINT #### [facility] [address] [address] [address] Jessica MosquedaGlucose [Mass/Vol]82 mg/hGBynwpo63-508LlfLakehealth Beachwood [facility] Center Comment on above:Performed By: #### PTHINT #### [facility] [address] [place] [address] Dr. Jessica MosquedaPotassium [Moles/Vol]4.0 mmol/LNormal3.5-5.1The [facility] Comment on above:Performed By: #### PTHINT #### [facility] [address] [address] [address] Jessica MosquedaProtein [Mass/Vol]7.4 g/dLNormal6.4-8.2The [facility] Comment on above:Performed By: #### PTHINT #### [facility] [address] [place] [address] Dr. Jessica MosquedaSodium [Moles/Vol]143 mmol/AYyzmwb797-396JvpLakehealth Beachwood Medical Center Comment on above:Performed By: #### PTHINT #### [facility] [address] [address] [address] Jessica MosquedaUrea nitrogen [Mass/Vol]23.0 mg/dLCritically high7.0-18.0The [facility] HospitalComment on above:Performed By: #### PTHINT #### [facility] [address] [address] [address] Jessica MosquedaUrea nitrogen/Creatinine [Mass ratio]11.0 mg/mgNoProtestant HospitalComment on above:Performed By: #### PTHINT #### [facility] [address] [address] [address] Jessica MosquedaMG MAMM SCREEN 3D MATILDA CADon 30-64-0747AH MAMM SCREEN 3D MATILDA CAD Patient: ISABEL RIVERA Exam Date: 11/14/2022 : 1980 Gender:F Ordering : DR MAREN ORTIZ . Admission #: [id number] Family : Order #: [id number] CLICK HERE TO VIEW EXAM RADIOLOGY REPORT [...] cancer at age 51. LOCATION: [facility] BREAST COMPOSITION: Extremely dense, which lowers [...] LUMP SHOULD BE BIOPSIED. Dictated by: Jonathon Huber M.D. on 11/15/2022 at 07:43 Approved by: Jonathon Huber M.D. on 11/15/2022 at 07:51[facility] Health CenterINSULINon 03-54-1867Omblcxs8.2 uIU/mLNormal2.6-24.9The [facility] Comment on above:Performed By: #### INSULIN #### [facility] [address] [place] [address] Dr. Jessica Dickerson AUTO DIFFon 07-19-1669RMIK #0.0 103/ulNormal0.0-0.1The [facility] HospitalComment on above:Performed By: #### LIPID, CMP, TSH, T7 #### [facility] [address] [place] [address] Dr. Jessica MosquedaBasophils/100 WBC (Bld)0.5 %Normal0.2-2.0[facility] Comment on above:Performed By: #### LIPID, CMP, TSH, T7 #### [facility] [address] [place] [address] Dr. Jessica Swan #0.3 103/ulNormal0.0-0.7The [facility] HospitalComment on above: Performed By: #### LIPID, CMP, TSH, T7 #### [facility] [address] [place] [address] Dr. Jessica Salmonosinophils/100 WBC (Bld)3.6 %Normal0.9-7.0[facility] Comment on above:Performed By: #### LIPID, CMP, TSH, T7 #### [facility] [address] [place] [address] Dr. Jessica Salmonrythrocyte distribution width (RBC) [Ratio]13.2 %Betdqr68.0-15.[address] [facility] HospitalComment on above:Performed By: #### LIPID, CMP, TSH, T7 #### [facility] [address] [place] [address] Dr. Jessica MosquedaHematocrit (Bld) [Volume fraction]41.9 %Lptzhe89.0-48.0The [facility] HospitalComment on above:Performed By: #### LIPID, CMP, TSH, T7 #### [facility] [address] [place] [address] Dr. Jessica MosquedaHemoglobin (Bld) [Mass/Vol]13.3 g/kDRpnggd85.0-16.0The [facility] HospitalComment on above:Performed By: #### LIPID, CMP, TSH, T7 #### [facility] [address] [place] [address] Dr. Jessica Brand #0.02 10e3/ulNormal0.00-0.03The [facility] HospitalComment on above:Performed By: #### LIPID, CMP, TSH, T7 #### [facility] [address] [place] [address] Dr. Jsesica Brand %0.3 %Normal0.0-0.5The [facility] HospitalComment on above: Performed By: #### LIPID, CMP, TSH, T7 #### [facility] [address] [place] [address] Dr. Jessica Peralta #2.2 103/ulNormal1.2-3.8The [facility] HospitalComment on above:Performed By: #### LIPID, CMP, TSH, T7 #### [facility] [address] [place] [address] Dr. Jessica Snowhocytes/100 WBC (Bld)29.6 %Moiyrq48.5-60.0The [facility] HospitalComment on above:Performed By: #### LIPID, CMP, TSH, T7 #### [facility] [address] [place] [address] Dr. Jessica BinghamUAL DIFF REQNONormalThe St. Francis HospitalComment on above: Performed By: #### LIPID, CMP, TSH, T7 #### [facility] [address] [place] [address] Dr. Jessica Munguia (RBC) [Entitic mass]28.9 kdItyupz40.7-34.0The [facility] HospitalComment on above:Performed By: #### LIPID, CMP, TSH, T7 #### [facility] [address] [place] [address] Dr. Jessica Ramesh (RBC) [Mass/Vol]31.7 g/kQYcmztf99.9-35.2The [facility] HospitalComment on above:Performed By: #### LIPID, CMP, TSH, T7 #### [facility] [address] [place] [address] Dr. Jessica Romero (RBC) [Entitic vol]91.1 oCQgwpuf83.0-99.0[facility] Hospitalment on above:Performed By: #### LIPID, CMP, TSH, T7 #### [facility] [address] [place] [address] Dr. Jessica Murguia #0.5 103/ulNormal0.3-0.8The [facility] HospitalComment on above:Performed By: #### LIPID, CMP, TSH, T7 #### [facility] [address] [place] [address] Dr. Jessica Pathakocytes/100 WBC (Bld)6.1 %Normal1.7-12.0[facility] Comment on above:Performed By: #### LIPID, CMP, TSH, T7 #### [facility] [address] [place] [address] Dr. Jessica Lin #4.4 103/ulNormal1.4-6.5The [facility] Hospitalment on above:Performed By: #### LIPID, CMP, TSH, T7 #### [facility] [address] [place] [address] Dr. Jessica Godoyutrophils/100 WBC (Bld)59.9 %Ixmjxa57.0-75.0[facility] Hospitalment on above:Performed By: #### LIPID, CMP, TSH, T7 #### [facility] [address] [place] [address] Dr. Jessica Trentlet mean volume (Bld) [Entitic vol]12.5 fLNormal9.5-13.5[facility] Hospitalment on above:Performed By: #### LIPID, CMP, TSH, T7 #### [facility] [address] [place] [address] Dr. Jessica MosquedaPLT157 103/rwLdccuw812-213Scc [facility] Hospitalment on above: Performed By: #### LIPID, CMP, TSH, T7 #### [facility] [address] [place] [address] Dr. Yilan ChangRBC4.60 106/ulNormal4.20-5.40The [facility] HospitalComment on above:Performed By: #### LIPID, CMP, TSH, T7 #### [facility] [address] [place] [address] Dr. Jessica MosquedaWBC7.3 103/ulNormal4.0-11.0[facility]ment on above: Performed By: #### LIPID, CMP, TSH, T7 #### [facility] [address] [place] [address] Dr. Jessica MosquedaFRMANN THYROXINE INDEX T7on 71-60-0167QOO4.27Sejyru9.30-4.50The [facility] on above:Performed By: #### LIPID, CMP, TSH, T7 #### [facility] [address] [place] [address] Dr. Jessica MosquedaT3U38.0 %Tmtqux16.0-39.0The [facility] on above: Performed By: #### LIPID, CMP, TSH, T7 #### [facility] [address] [place] [address] Dr. Jessica MosquedaT4 [Mass/Vol]6.60 ug/dLNormal4.80-13.90[facility] Comment on above:Performed By: #### LIPID, CMP, TSH, T7 #### [facility] [address] [place] [address] Dr. Jessica MosquedaGLYCOHEMOGLOBIN A1Con 19-26-8773OSJ RECOMMENDATIONSEE BELOWNormal The [facility] HospitalComveterans affairs [facility] on above:Result Comment: ADA RECOMMENDED LIMIT 4.0 - 6.0 ADA THERAPEUTIC TARGET < 7.0 ACTION SUGGESTED > 7.0Performed By: #### PTHINT #### [facility] [address] [place] [address] Dr. Jessica MosquedaGlucose [Mass/Vol]111 mg/dLNormalThe St. [facility] HospitalComveterans [facility] on above:Performed By: #### PTHINT #### [facility] [address] [place] [address] Dr. Jessica MosquedaHbA1c (Bld) [Mass fraction]5.5 %Normal4.5-6.2[facility] on above:Performed By: #### PTHINT #### [facility] [address] [place] [address] Dr. Jessica Hernandez [id number] [Mass/Vol]58.0 ug/oPPzmtxp94.0-170.0The [facility] on above:Performed By: #### PTHINT #### [facility] [address] [place] [address] Dr. Jessica Marin PROFILEon [id number]-HDL RATIO NORMSEE [facility]Comveterans [facility] on above:Result Comment: 3.3 - 4.4 LOW RISK 4.4 - 7.1 AVERAGE RISK 7.1 - 11.0 MODERATE RISK >11.0 HIGH RISKPerformed By: #### LIPID, CMP, TSH, T7 #### [facility] [address] [place] [address] Dr. Jessica Pinedaesterol [Mass/Vol]205 mg/dLCritically high<=200The [facility] on above:Performed By: #### LIPID, CMP, TSH, T7 #### [facility] [address] [place] [address] Dr. Jessica Pinedaesterol in HDL [Mass/Vol]60 mg/kMBhncjm38-77Iux [facility] on above:Performed By: #### LIPID, CMP, TSH, T7 #### [facility] [address] [place] [address] Dr. Jessica Pinedaesterol in LDL [Mass/Vol]127.4 mg/dLBrecksville [facility] on above:Performed By: #### LIPID, CMP, TSH, T7 #### [facility] [address] [place] [address] Dr. Jessica Erazo.total/Cholesterol in HDL [Mass ratio]3.4 {ratio} NormalThe [facility] on above:Performed By: #### LIPID, CMP, TSH, T7 #### [facility] [address] [address] [address] Jessica Trujillo NORMAL> or = 60 mg/dl - LOW CARDIOVASCULAR RISK <40 mg/dl - HIGH CARDIOVASCULAR RISKSamaritan North Health CenterComment on above:Performed By: #### LIPID, CMP, TSH, T7 #### [facility] [address] [address] [address] Jessica MosquedaLDL CALC NORMALSEE BELOWSamaritan North Health CenterComment on above:Result Comment: <100 mg/dl OPTIMAL 100 - 129 mg/dl NEAR OR ABOVE OPTIMAL 130 - 159 mg/dl BORDERLINE HIGH 160 - 189 mg/dl HIGH >190 mg/dl VERY HIGH Performed By: #### LIPID, CMP, TSH, T7 #### [facility] [address] [place] [address] Dr. Jessica MosquedaTriglyceride [Mass/Vol]88 mg/dLNormal<=150The [facility] Comment on above:Performed By: #### LIPID, CMP, TSH, T7 #### [facility] [address] [place] [address] Dr. Jessica LanceLDL CALC17.6 mg/dLNoProtestant HospitalComment on above: Performed By: #### LIPID, CMP, TSH, T7 #### [facility] [address] [place] [address] Dr. Jessica Patterson 14(COMP METB)on [id number] [Mass/Vol]3.8 g/dLNormal 3.4-5.0The [facility] HospitalComment on above:Performed By: #### LIPID, CMP, TSH, T7 #### [facility] [address] [place] [address] Dr. Jessica MosquedaAlbumin/Globulin [Mass ratio]1.1 {ratio}NormalThe St. Francis HospitalComment on above:Performed By: #### LIPID, CMP, TSH, T7 #### [facility] [address] [place] [address] Dr. Jessica Mullins [Catalytic activity/Vol]37 U/LCritically nlw08-307Cxf [facility] HospitalComment on above:Performed By: #### LIPID, CMP, TSH, T7 #### [facility] [address] [address] [address] Jessica Salinas [Catalytic activity/Vol]16 U/RPiwnyw77-21Noc [facility] HospitalComment on above:Performed By: #### LIPID, CMP, TSH, T7 #### [facility] [address] [place] [address] Dr. Jessica Ibanez gap [Moles/Vol]13.7 mmol/LNormalThe [facility] Comment on above:Performed By: #### LIPID, CMP, TSH, T7 #### [facility] [address] [place] [address] Dr. Jessica MosquedaAST [Catalytic activity/Vol]14 U/LCritically zzd06-23Vxb St[facility] HospitalComment on above:Performed By: #### LIPID, CMP, TSH, T7 #### [facility] [address] [place] [address] Dr. Jessica MosquedaBilirubin [Mass/Vol]0.4 mg/dLNormal0.2-1.0[facility] Comment on above:Performed By: #### LIPID, CMP, TSH, T7 #### [facility] [address] [place] [address] Dr. Jessica MosquedaCalcium [Mass/Vol]9.6 mg/dLNormal8.5-10.1[facility] Comment on above:Performed By: #### LIPID, CMP, TSH, T7 #### [facility] [address] [place] [address] Dr. Jessica MosquedaChloride [Moles/Vol]107 mmol/JQwwlib37-102Qie [facility] Comment on above:Performed By: #### LIPID, CMP, TSH, T7 #### [facility] [address] [place] [address] Dr. Jessica MosquedaCO2 [Moles/Vol]27.5 mmol/XHsbtql68.0-32.0[facility] Comment on above:Performed By: #### LIPID, CMP, TSH, T7 #### [facility] [address] [place] [address] Dr. Jessica MosquedaCreatinine [Mass/Vol]1.74 mg/dLCritically high0.55-1.02[facility] CenterComment on above:Performed By: #### LIPID, CMP, TSH, T7 #### [facility] [address] [address] [address] Jessica SalmonGFR-AF ZUVGXENN31 mL/min/1.82a9Kpgoagsrqa low>=60The [facility] HospitalComment on above:Performed By: #### LIPID, CMP, TSH, T7 #### [facility] [address] [address] [address] Lopez ChangEGFR-NON AF SWYUYQNQ43 mL/min/1.65b6Droyhahrsw low>=60The [facility] HospitalComment on above:Performed By: #### LIPID, CMP, TSH, T7 #### [facility] [address] [address] [address] Jessica MosquedaGlobulin (S) [Mass/Vol]3.4 g/dLNormalThe St. [facility] HospitalComment on above:Performed By: #### LIPID, CMP, TSH, T7 #### [facility] [address] [address] [address] Jessica MosquedaGlucose [Mass/Vol]95 mg/tEQyqryu84-671KosLakehealth [facility] Center Comment on above:Performed By: #### LIPID, CMP, TSH, T7 #### [facility] [address] [address] [address] Jessica MosquedaPotassium [Moles/Vol]4.2 mmol/LNormal3.5-5.1The [facility] Comment on above:Performed By: #### LIPID, CMP, TSH, T7 #### [facility] [address] [address] [address] Jessica MosquedaProtein [Mass/Vol]7.2 g/dLNormal6.4-8.2The [facility] Comment on above:Performed By: #### LIPID, CMP, TSH, T7 #### [facility] [address] [address] [address] Jessica MosquedaSodium [Moles/Vol]144 mmol/BDfukjl587-985Gvt [facility] Comment on above:Performed By: #### LIPID, CMP, TSH, T7 #### [facility] [address] [place] [address] Dr. Jessica Hanson nitrogen [Mass/Vol]25.0 mg/dLCritically high7.0-18.0The [facility] HospitalComment on above:Performed By: #### LIPID, CMP, TSH, T7 #### [facility] [address] [place] [address] Dr. Jessica Hanson nitrogen/Creatinine [Mass ratio]14.4 mg/mgNormalThe St. Francis HospitalComment on above:Performed By: #### LIPID, CMP, TSH, T7 #### [facility] [address] [place] [address] Dr. Jessica Brown [id number] uIU/mLNormal0.358-3.740The [facility] HospitalComment on above:Performed By: #### LIPID, CMP, TSH, T7 #### [facility] [address] [place] [address] Dr. Jessica Nelson INTACTon [id number], Sqmazg72 pg/qIRqqghf39-22Qxo St. [facility] HospitalComment on above:Performed By: #### LIPID, CMP, TSH, T7 #### [facility] [address] [place] [address] Dr. Jessica MosquedaHEMOGRAM AND PLATELon [id number] (Bld) [Volume fraction]39.0 %Lpmbrc03.0-48.0The [facility] HospitalComment on above:Performed By: #### HH #### [facility] [address] [place] [address] Dr. Jessica MosquedaHemoglobin (Bld) [Mass/Vol]12.3 g/aITswkwb73.0-16.0The [facility] HospitalComment on above:Performed By: #### HH #### [facility] [address] [place] [address] Dr. Jessica Munguia (RBC) [Entitic mass]29.1 dcFjtmbn53.7-34.0The [facility] HospitalComment on above:Performed By: #### HH #### [facility] [address] [place] [address] Dr. Jessica RameshHC (RBC) [Mass/Vol]31.5 g/gHEjkkco62.9-35.2The [facility] HospitalComment on above:Performed By: #### HH #### [facility] [address] [place] [address] Dr. Jessica RameshV (RBC) [Entitic vol]92.4 yFUuspgl33.0-99.0The [facility] HospitalComment on above:Performed By: #### HH #### [facility] [address] [place] [address] Dr. Jessica MosquedaPLT131 103/ulCritically nbo338-347Kcl [facility] HospitalComment on above:Performed By: #### HH #### [facility] [address] [place] [address] Dr. Jessica MosquedaRBC4.22 106/ulNormal4.20-5.40The [facility] HospitalComment on above:Performed By: #### HH #### [facility] [address] [place] [address] Dr. Jessica MosquedaWBC8.6 103/ulNormal4.0-11.0The [facility] HospitalComment on above: Performed By: #### HH #### [facility] [address] [place] [address] Dr. Jessica MosquedaPHOSPHORUSon [id number] [Mass/Vol]4.3 mg/dLNormal2.6-4.[address] [facility] HospitalComment on above:Performed By: #### PTHINT #### [facility] [address] [place] [address] Dr. Jessica Patterson 14(COMP METB)on 88-47-5209Yumpnpb [Mass/Vol]3.9 g/dLNormal 3.4-5.0The [facility] HospitalComment on above:Performed By: #### PTHINT #### [facility] [address] [address] [address] Jessica MosquedaAlbumin/Globulin [Mass ratio]1.1 {ratio}NormalThe St. Francis HospitalComment on above:Performed By: #### PTHINT #### [facility] [address] [address] [address] Jessica GormanP [Catalytic activity/Vol]34 U/LCritically iok34-190Tfn [facility] HospitalComment on above:Performed By: #### PTHINT #### [facility] [address] [place] [address] Dr. Jessica GormanT [Catalytic activity/Vol]13 U/LCritically kdd91-80Zrz [facility] HospitalComment on above:Performed By: #### PTHINT #### [facility] [address] [place] [address] Dr. Jessica MosquedaAnion gap [Moles/Vol]13.6 mmol/LNormalThe [facility] Comment on above:Performed By: #### PTHINT #### [facility] [address] [place] [address] Dr. Jessica MosquedaAST [Catalytic activity/Vol]9 U/LCritically mhx70-77Xcq [facility] HospitalComment on above:Performed By: #### PTHINT #### [facility] [address] [place] [address] Dr. Jessica MosquedaBilirubin [Mass/Vol]0.3 mg/dLNormal0.2-1.0The [facility] Comment on above:Performed By: #### PTHINT #### [facility] [address] [place] [address] Dr. Jessica MosquedaCalcium [Mass/Vol]9.5 mg/dLNormal8.5-10.1The [facility] Comment on above:Performed By: #### PTHINT #### [facility] [address] [place] [address] Dr. Jessica MosquedaChloride [Moles/Vol]105 mmol/XVmtoyn04-538Dou [facility] Comment on above:Performed By: #### PTHINT #### [facility] [address] [address] [address] Jessica MosquedaCO2 [Moles/Vol]24.7 mmol/IDmtyhg07.0-32.0The [facility] Comment on above:Performed By: #### PTHINT #### [facility] [address] [place] [address] Dr. Jessica MosquedaCreatinine [Mass/Vol]1.67 mg/dLCritically high0.55-1.02[facility] CenterComment on above:Performed By: #### PTHINT #### [facility] [address] [place] [address] Dr. Lopez ChangEGFR-AF JSXBRYMT99 mL/min/1.90y6Qkztnjozjj low>=60The [facility] HospitalComment on above:Performed By: #### PTHINT #### [facility] [address] [place] [address] Dr. Jessica SalmonGFR-NON AF AMXHXMRF98 mL/min/1.26k1Dbqfuuzovw low>=60The [facility] HospitalComment on above:Performed By: #### PTHINT #### [facility] [address] [place] [address] Dr. Jessica MosquedaGlobulin (S) [Mass/Vol]3.5 g/dLNormalThe St. [facility] HospitalComment on above:Performed By: #### PTHINT #### [facility] [address] [place] [address] Dr. Jessica MosquedaGlucose [Mass/Vol]94 mg/kTWwirdo08-932HdoL[facility]health [facility] Comment on above:Performed By: #### PTHINT #### [facility] [address] [place] [address] Dr. Jessica MosquedaPotassium [Moles/Vol]4.4 mmol/LNormal3.5-5.1The [facility] Comment on above:Performed By: #### PTHINT #### [facility] [address] [place] [address] Dr. Jessica MosquedaProtein [Mass/Vol]7.4 g/dLNormal6.4-8.2The [facility] Comment on above:Performed By: #### PTHINT #### [facility] [address] [address] [address] Jessica MosquedaSodium [Moles/Vol]139 mmol/MYrgujy620-732Wip [facility] Comment on above:Performed By: #### PTHINT #### [facility] [address] [address] [address] Jessica MosquedaUrea nitrogen [Mass/Vol]29.0 mg/dLCritically high7.0-18.0The [facility] HospitalComment on above:Performed By: #### PTHINT #### [facility] [address] [place] [address] Dr. Jessica MosquedaUrea nitrogen/Creatinine [Mass ratio]17.4 mg/mgNormalThe St. [facility] HospitalComment on above:Performed By: #### PTHINT #### [facility] [address] [place] [address] Dr. Jessica Nelson INTACTon [id number], Cbbeym63 pg/cSKmkrtc75-99Hbm [facility] HospitalComment on above:Performed By: #### PTHINT #### [facility] [address] [place] [address] Dr. Jessica MosquedaHEMOGRAM AND PLATELon 69-09-4714Ytgtnrxgfr (Bld) [Volume fraction]37.5 %Mlnjfn51.0-48.0The [facility] HospitalComment on above:Performed By: #### PTHINT #### [facility] [address] [place] [address] Dr. Jessica MosquedaHemoglobin (Bld) [Mass/Vol]12.1 g/yHXtlgdt20.0-16.0The [facility] HospitalComment on above:Performed By: #### PTHINT #### [facility] [address] [place] [address] Dr. Jessica Munguia (RBC) [Entitic mass]29.0 wkOlmhal48.7-34.0The [facility] HospitalComment on above:Performed By: #### PTHINT #### [facility] [address] [place] [address] Dr. Jessica RameshHC (RBC) [Mass/Vol]32.3 g/qNAjldxy44.9-35.2The [facility] HospitalComment on above:Performed By: #### PTHINT #### [facility] [address] [place] [address] Dr. Jessica RameshV (RBC) [Entitic vol]89.9 zCUkphst26.0-99.0The [facility] HospitalComment on above:Performed By: #### PTHINT #### [facility] [address] [place] [address] Dr. Jessica MosquedaPLT170 103/tjDhlbph610-033Rcd [facility] HospitalComment on above: Performed By: #### PTHINT #### [facility] [address] [place] [address] Dr. Jessica MosquedaRBC4.17 106/ulCritically low4.20-5.40The [facility] HospitalComment on above:Performed By: #### PTHINT #### [facility] [address] [place] [address] Dr. Jessica MosquedaWBC9.4 103/ulNormal4.0-11.0The [facility] HospitalComment on above: Performed By: #### PTHINT #### [facility] [address] [place] [address] Dr. Jessica MosquedaPHOSPHORUSon 36-65-9185Kharaqodz [Mass/Vol]3.8 mg/dLNormal2.6-4.[address] [facility] HospitalComment on above:Performed By: #### LIPID, CMP, TSH, T7 #### [facility] [address] [place] [address] Dr. Jessica MosquedaPROF 14(COMP METB)on 04-72-5809Kbeovbw [Mass/Vol]4.0 g/dLNormal 3.4-5.0The [facility] HospitalComment on above:Performed By: #### LIPID, CMP, TSH, T7 #### [facility] [address] [place] [address] Dr. Jessica MosquedaAlbumin/Globulin [Mass ratio]1.2 {ratio}NormalThe St. [facility] HospitalComment on above:Performed By: #### LIPID, CMP, TSH, T7 #### [facility] [address] [address] [address] Jessica Mullins [Catalytic activity/Vol]38 U/LCritically hdy84-844Mjs [facility] HospitalComment on above:Performed By: #### LIPID, CMP, TSH, T7 #### [facility] [address] [address] [address] Jessica Salinas [Catalytic activity/Vol]13 U/LCritically ibv66-38Nln [facility] HospitalComment on above:Performed By: #### LIPID, CMP, TSH, T7 #### [facility] [address] [place] [address] Dr. Jessica Ibanez gap [Moles/Vol]13.1 mmol/LNormalThe [facility] Comment on above:Performed By: #### LIPID, CMP, TSH, T7 #### [facility] [address] [place] [address] Dr. Jessica Mckeon [Catalytic activity/Vol]14 U/LCritically wfs34-65Wys [facility] HospitalComment on above:Performed By: #### LIPID, CMP, TSH, T7 #### [facility] [address] [place] [address] Dr. Jessica MosquedaBilirubin [Mass/Vol]0.4 mg/dLNormal0.2-1.0[facility] Comment on above:Performed By: #### LIPID, CMP, TSH, T7 #### [facility] [address] [place] [address] Dr. Jessica MosquedaCalcium [Mass/Vol]9.2 mg/dLNormal8.5-10.1[facility] Comment on above:Performed By: #### LIPID, CMP, TSH, T7 #### [facility] [address] [place] [address] Dr. Jessica MosquedaChloride [Moles/Vol]104 mmol/TLkwkkr23-229MopLakehealth [facility] Center Comment on above:Performed By: #### LIPID, CMP, TSH, T7 #### [facility] [address] [address] [address] Jessica MosquedaCO2 [Moles/Vol]26.1 mmol/PDgalsn54.0-32.0[facility] Comment on above:Performed By: #### LIPID, CMP, TSH, T7 #### [facility] [address] [place] [address] Dr. Jessica MosquedaCreatinine [Mass/Vol]1.86 mg/dLCritically high0.55-1.02[facility] CenterComment on above:Performed By: #### LIPID, CMP, TSH, T7 #### [facility] [address] [place] [address] Dr. Lopez ChangEGFR-AF NUIYQEEP52 mL/min/1.95c9Icndhhbdbn low>=60The [facility] HospitalComment on above:Performed By: #### LIPID, CMP, TSH, T7 #### [facility] [address] [place] [address] Dr. Jessica SalmonGFR-NON AF WAFKEUEG58 mL/min/1.34s4Rmelfgquux low>=60The [facility] HospitalComment on above:Performed By: #### LIPID, CMP, TSH, T7 #### [facility] [address] [place] [address] Dr. Jessica MosquedaGlobulin (S) [Mass/Vol]3.4 g/dLNoalThProtestant HospitalComment on above:Performed By: #### LIPID, CMP, TSH, T7 #### [facility] [address] [place] [address] Dr. Jessica MosquedaGlucose [Mass/Vol]84 mg/dAJmwdbp86-832IdqLakehealth [facility] Center Comment on above:Performed By: #### LIPID, CMP, TSH, T7 #### [facility] [address] [place] [address] Dr. Jessica MosquedaPotassium [Moles/Vol]4.2 mmol/LNormal3.5-5.1[facility] Comment on above:Performed By: #### LIPID, CMP, TSH, T7 #### [facility] [address] [place] [address] Dr. Yilan ChangProtein [Mass/Vol]7.4 g/dLNormal6.4-8.2[facility] Comment on above:Performed By: #### LIPID, CMP, TSH, T7 #### [facility] [address] [address] [address] Jessica Artisum [Moles/Vol]139 mmol/QRxawzv693-977Nhj [facility] Comment on above:Performed By: #### LIPID, CMP, TSH, T7 #### [facility] [address] [address] [address] Jessica Hanson nitrogen [Mass/Vol]26.0 mg/dLCritically high7.0-18.0The [facility] HospitalComment on above:Performed By: #### LIPID, CMP, TSH, T7 #### [facility] [address] [place] [address] Dr. Jessica Hanson nitrogen/Creatinine [Mass ratio]14.0 mg/mgNormalThe St. [facility] HospitalComment on above:Performed By: #### LIPID, CMP, TSH, T7 #### [facility] [address] [place] [address] Dr. Jessica Brown 92-77-8405Leijytovx Ql (U)NegativeNormalNEGATIVELakehealth Beachwood Medical CenterComment on above:Performed By: #### LIPID, CMP, TSH, T7 #### [facility] [address] [place] [address] Dr. Jessica Kaplan (U)CLEARNormalCLEARThe St. [facility] HospitalComment on above: Performed By: #### LIPID, CMP, TSH, T7 #### [facility] [address] [place] [address] Dr. Jessica Parr (U)LT. YELLOWNormalYELLOWLakehealth Beachwood Medical CenterComment on above:Performed By: #### LIPID, CMP, TSH, T7 #### [facility] [address] [place] [address] Dr. Jessica Canalesose Ql (U)NegativeNormalNEGATIVELakehealth Beachwood Medical CenterComment on above:Performed By: #### LIPID, CMP, TSH, T7 #### [facility] [address] [address] [address] Jessica MosquedaHemoglobin Ql (U)NegativeNormalNEGATIVELakehealth Beachwood Medical Center Comment on above:Performed By: #### LIPID, CMP, TSH, T7 #### [facility] [address] [address] [address] Jessica MosquedaKetones Ql (U)NegativeNormalNEGATIVEThe St. [facility] HospitalComment on above:Performed By: #### LIPID, CMP, TSH, T7 #### [facility] [address] [address] [address] Jessica MosquedaLEUKOCYTESNegativeNormalNEGATIVEThe St. [facility] HospitalComment on above:Performed By: #### LIPID, CMP, TSH, T7 #### [facility] [address] [place] [address] Dr. Jessica MosquedaNitrite Ql (U)NegativeNormalNEGATIVEThe St. [facility] HospitalComment on above:Performed By: #### LIPID, CMP, TSH, T7 #### [facility] [address] [place] [address] Dr. Jessica MosquedapH (U)6.0 [pH]Normal5-9The [facility] HospitalComment on above: Performed By: #### LIPID, CMP, TSH, T7 #### [facility] [address] [place] [address] Dr. Jessica MosquedaSPEC GRAVITY<=1.932Hrybkscr5.005-<=1.025The [facility] Comment on above:Performed By: #### LIPID, CMP, TSH, T7 #### [facility] [address] [place] [address] Dr. Jessica MosquedaUA PROTEINNegativeNormalNEGATIVE/ TRACEThe [facility] Comment on above:Performed By: #### LIPID, CMP, TSH, T7 #### [facility] [address] [address] [address] Jessica MosquedaUrobilinogen Qn (U)0.2 {Fran'U}/dLNormal0.2 - 1.0The [facility] HospitalComment on above:Performed By: #### LIPID, CMP, TSH, T7 #### [facility] [address] [address] [address] Jessica MosquedaPROF 14(COMP METB)on 37-48-7309Cpxptcc [Mass/Vol]3.9 g/dLNormal 3.4-5.0[facility] CenterComment on above:Performed By: #### PTHINT #### [facility] [address] [address] [address] Jessica MosquedaAlbumin/Globulin [Mass ratio]1.1 {ratio}NormalThe St. [facility] HospitalComment on above:Performed By: #### PTHINT #### [facility] [address] [place] [address] Dr. Jessica GormanP [Catalytic activity/Vol]36 U/LCritically exy32-895Sdh [facility] HospitalComment on above:Performed By: #### PTHINT #### [facility] [address] [place] [address] Dr. Jessica GormanT [Catalytic activity/Vol]17 U/OWtqvwx76-07Gpw [facility] HospitalComment on above:Performed By: #### PTHINT #### [facility] [address] [place] [address] Dr. Jessica Ibanez gap [Moles/Vol]13.9 mmol/LNormalThe [facility] Comment on above:Performed By: #### PTHINT #### [facility] [address] [place] [address] Dr. Jessica MosquedaAST [Catalytic activity/Vol]11 U/LCritically ney96-31Btd [facility] HospitalComment on above:Performed By: #### PTHINT #### [facility] [address] [place] [address] Dr. Jessica MosquedaBilirubin [Mass/Vol]0.3 mg/dLNormal0.2-1.0The [facility] Comment on above:Performed By: #### PTHINT #### [facility] [address] [place] [address] Dr. Jessica MosquedaCalcium [Mass/Vol]9.2 mg/dLNormal8.5-10.1The [facility] Comment on above:Performed By: #### PTHINT #### [facility] [address] [address] [address] Jessica MosquedaChloride [Moles/Vol]105 mmol/CKjzmsv62-206Fif [facility] Comment on above:Performed By: #### PTHINT #### [facility] [address] [address] [address] Jessica MosquedaCO2 [Moles/Vol]26.5 mmol/JXrtfhm97.0-32.0The [facility] Comment on above:Performed By: #### PTHINT #### [facility] [address] [place] [address] Dr. Jessica MosquedaCreatinine [Mass/Vol]2.06 mg/dLCritically high0.55-1.02[facility] CenterComment on above:Performed By: #### PTHINT #### [facility] [address] [place] [address] Dr. Jessica SalmonGFR-AF EKIDPMWZ36 mL/min/1.54o2Zyxdoxygul low>=60The [facility] HospitalComment on above:Performed By: #### PTHINT #### [facility] [address] [place] [address] Dr. Jessica Rea-NON AF CYHGHVDT98 mL/min/1.38x0Gqofkckpuc low>=60The [facility] HospitalComment on above:Performed By: #### PTHINT #### [facility] [address] [place] [address] Dr. Jessica MosquedaGlobulin (S) [Mass/Vol]3.5 g/dLNormalThe St. [facility] HospitalComment on above:Performed By: #### PTHINT #### [facility] [address] [address] [address] Jessica MosquedaGlucose [Mass/Vol]75 mg/aFDwfcnh29-057KguLakehealth Beachwood Medical Center Comment on above:Performed By: #### PTHINT #### [facility] [address] [place] [address] Dr. Jessica MosquedaPotassium [Moles/Vol]4.4 mmol/LNormal3.5-5.1The [facility] Comment on above:Performed By: #### PTHINT #### [facility] [address] [place] [address] Dr. Jessica MosquedaProtein [Mass/Vol]7.4 g/dLNormal6.4-8.2The [facility] Comment on above:Performed By: #### PTHINT #### [facility] [address] [place] [address] Dr. Jessica Artisum [Moles/Vol]141 mmol/WSehngg910-197Szj [facility] Comment on above:Performed By: #### PTHINT #### [facility] [address] [place] [address] Dr. Jessica Hanson nitrogen [Mass/Vol]37.0 mg/dLCritically high7.0-18.0The [facility] HospitalComment on above:Performed By: #### PTHINT #### [facility] [address] [place] [address] Dr. Jessica Hanson nitrogen/Creatinine [Mass ratio]18.0 mg/mgNormalThe St. [facility] HospitalComment on above:Performed By: #### PTHINT #### [facility] [address] [place] [address] Dr. Jessica Patterson 14(COMP METB)on 70-04-0169Zjdpzvx [Mass/Vol]3.9 g/dLNormal 3.4-5.0The [facility] HospitalComment on above:Performed By: #### CMP #### [facility] [address] [place] [address] Dr. Jessica MosquedaAlbumin/Globulin [Mass ratio]1.2 {ratio}NormalThe St. Francis HospitalComment on above:Performed By: #### CMP #### [facility] [address] [place] [address] Dr. Jessica Mullins [Catalytic activity/Vol]32 U/LCritically saw44-790Ssm St. [facility] HospitalComment on above:Performed By: #### CMP #### [facility] [address] [place] [address] Dr. Jessica Salinas [Catalytic activity/Vol]12 U/LCritically bzs02-20Uky St. [facility] HospitalComment on above:Performed By: #### CMP #### [facility] [address] [place] [address] Dr. Jessica Ibanez gap [Moles/Vol]13.6 mmol/LNormalLakehealth Beachwood Medical Center Comment on above:Performed By: #### CMP #### [facility] [address] [address] [address] Jessica MosquedaAST [Catalytic activity/Vol]15 U/WUvxpuw58-90Kfj St. [facility] HospitalComment on above:Performed By: #### CMP #### [facility] [address] [place] [address] Dr. Jessica MosquedaBilirubin [Mass/Vol]0.2 mg/dLNormal0.2-1.0[facility] Comment on above:Performed By: #### CMP #### [facility] [address] [place] [address] Dr. Jessica MosquedaCalcium [Mass/Vol]9.2 mg/dLNormal8.5-10.1[facility] Comment on above:Performed By: #### CMP #### [facility] [address] [place] [address] Dr. Jessica MosquedaChloride [Moles/Vol]105 mmol/YApeukx75-699QrqLakehealth Beachwood Medical Center Comment on above:Performed By: #### CMP #### [facility] [address] [place] [address] Dr. Jessica MosquedaCO2 [Moles/Vol]26.0 mmol/GWuoewc52.0-32.0The [facility] Comment on above:Performed By: #### CMP #### [facility] [address] [place] [address] Dr. Jessica MosquedaCreatinine [Mass/Vol]1.98 mg/dLCritically high0.55-1.02The [facility] HospitalComment on above:Performed By: #### CMP #### [facility] [address] [place] [address] Dr. Lopez ChangEGFR-AF RGPOCKNT24 mL/min/1.05u2Fpjaxcfdhc low>=60The [facility] HospitalComment on above:Performed By: #### CMP #### [facility] [address] [address] [address] Lopez ChangEGFR-NON AF MUPLRMRK13 mL/min/1.38z9Qvvkiqgpgj low>=60The [facility] HospitalComment on above:Performed By: #### CMP #### [facility] [address] [address] [address] Jessica MosquedaGlobulin (S) [Mass/Vol]3.3 g/dLNormalThe St. [facility] HospitalComment on above:Performed By: #### CMP #### [facility] [address] [address] [address] Jessica MosquedaGlucose [Mass/Vol]93 mg/dRTqtoyx39-569UwcLakehealth Beachwood Medical Center Comment on above:Performed By: #### CMP #### [facility] [address] [address] [address] Jessica MosquedaPotassium [Moles/Vol]4.6 mmol/LNormal3.5-5.1The [facility] Comment on above:Performed By: #### CMP #### [facility] [address] [address] [address] Jessica MosquedaProtein [Mass/Vol]7.2 g/dLNormal6.4-8.2The [facility] Comment on above:Performed By: #### CMP #### [facility] [address] [address] [address] Jessica MosquedaSodium [Moles/Vol]140 mmol/DLqgxuw137-955Yys [facility] Comment on above:Performed By: #### CMP #### [facility] [address] [address] [address] Jessica MosquedaUrea nitrogen [Mass/Vol]23.0 mg/dLCritically high7.0-18.0The [facility] HospitalComment on above:Performed By: #### CMP #### [facility] [address] [address] [address] Jessica MosquedaUrea nitrogen/Creatinine [Mass ratio]11.6 mg/mgNormalThe St. [facility] HospitalComment on above:Performed By: #### CMP #### [facility] [address] [place] [address] Dr. Jessica Nelson INTACTon 13-39-9360LBD, Nmvtqn85 pg/mLCritically usoe56-22Jjx [facility]. [facility] HospitalComment on above:Performed By: #### PTHINT #### [facility] [address] [place] [address] Dr. Jessica MosquedaHEMOGRAM AND PLATELon 74-90-5397Malcpnronk (Bld) [Volume fraction]37.8 %Epstcs75.0-48.0The [facility] HospitalComveterans affairs [facility] on above:Performed By: #### HH #### [facility] [address] [place] [address] Dr. Jessica MosquedaHemoglobin (Bld) [Mass/Vol]12.3 g/iXPvuskr82.0-16.0The [facility] HospitalComment on above:Performed By: #### HH #### [facility] [address] [place] [address] Dr. Jessica Ramesh (RBC) [Entitic mass]29.6 gzGthrcf43.7-34.0The [facility] on above:Performed By: #### HH #### [facility] [address] [place] [address] Dr. Jessica Ramesh (RBC) [Mass/Vol]32.5 g/oGNqplwm85.9-35.2The [facility] HospitalComment on above:Performed By: #### HH #### [facility] [address] [place] [address] Dr. Jessica RameshV (RBC) [Entitic vol]90.9 rYVyfksi75.0-99.0[facility] on above:Performed By: #### HH #### [facility] [address] [place] [address] Dr. Jessica MosquedaPLT158 103/beJtawbh219-761Zyf St. [facility] HospitalComment on above: Performed By: #### HH #### [facility] [address] [place] [address] Dr. Jessica MosquedaRBC4.16 106/ulCritically low4.20-5.40[facility] on above:Performed By: #### HH #### [facility] [address] [place] [address] Dr. Jessica MosquedaWBC10.3 103/ulNormal4.0-11.0[facility] on above:Performed By: #### HH #### [facility] [address] [place] [address] Dr. Jessica MosquedaPHOSPHORUSon 11-39-1425Zpheyowzo [Mass/Vol]4.7 mg/dLNormal2.6-4.7 [facility] on above:Performed By: #### LIPID, CMP, TSH, T7 #### [facility] [address] [place] [address] Dr. Jessica MosquedaPROF 14(COMP METB)on 10-92-2091Lxfuypt [Mass/Vol]4.1 g/dLNormal 3.4-5.0[facility] on above:Performed By: #### LIPID, CMP, TSH, T7 #### [facility] [address] [place] [address] Dr. Jessica MosquedaAlbumin/Globulin [Mass ratio]1.2 {ratio}NormalThe [facility] on above:Performed By: #### LIPID, CMP, TSH, T7 #### [facility] [address] [place] [address] Dr. Jessica Mullins [Catalytic activity/Vol]36 U/LCritically owt00-088Rnf [facility] on above:Performed By: #### LIPID, CMP, TSH, T7 #### [facility] [address] [place] [address] Dr. Jessica Salinas [Catalytic activity/Vol]16 U/KCwtmdu82-39Bob [facility] on above:Performed By: #### LIPID, CMP, TSH, T7 #### [facility] [address] [address] [address] Jessica Ibanez gap [Moles/Vol]15.4 mmol/LNormalLakehealth Beachwood Medical Center Comment on above:Performed By: #### LIPID, CMP, TSH, T7 #### [facility] [address] [address] [address] Jessica MosquedaAST [Catalytic activity/Vol]12 U/LCritically fkq47-82Znq [facility] HospitalComment on above:Performed By: #### LIPID, CMP, TSH, T7 #### [facility] [address] [address] [address] Jessica MosquedaBilirubin [Mass/Vol]0.6 mg/dLNormal0.2-1.0The [facility] Comment on above:Performed By: #### LIPID, CMP, TSH, T7 #### [facility] [address] [place] [address] Dr. Jessica MosquedaCalcium [Mass/Vol]9.3 mg/dLNormal8.5-10.1The [facility] Comment on above:Performed By: #### LIPID, CMP, TSH, T7 #### [facility] [address] [address] [address] Jessica MosquedaChloride [Moles/Vol]103 mmol/RYingwm56-095Upx [facility] Comment on above:Performed By: #### LIPID, CMP, TSH, T7 #### [facility] [address] [address] [address] Jessica MosquedaCO2 [Moles/Vol]24.4 mmol/NRzydyq26.0-32.0The [facility] Comment on above:Performed By: #### LIPID, CMP, TSH, T7 #### [facility] [address] [address] [address] Jessica MosquedaCreatinine [Mass/Vol]2.04 mg/dLCritically high0.55-1.02The [facility] HospitalComment on above:Performed By: #### LIPID, CMP, TSH, T7 #### [facility] [address] [address] [address] Lopez ChangEGFR-AF AJKBVYPO42 mL/min/1.90z2Oxnxpaacfl low>=60The [facility] HospitalComment on above:Performed By: #### LIPID, CMP, TSH, T7 #### [facility] [address] [place] [address] Dr. Jessica SalmonGFR-NON AF NKHWMXBH97 mL/min/1.37z5Syihaibmfy low>=60The [facility] HospitalComment on above:Performed By: #### LIPID, CMP, TSH, T7 #### [facility] [address] [place] [address] Dr. Jessica MosquedaGlobulin (S) [Mass/Vol]3.3 g/dLNormalThe St. [facility] HospitalComment on above:Performed By: #### LIPID, CMP, TSH, T7 #### [facility] [address] [place] [address] Dr. Jessica MosquedaGlucose [Mass/Vol]84 mg/rDUavmjs55-376DheLakehealth Beachwood Medical Center Comment on above:Performed By: #### LIPID, CMP, TSH, T7 #### [facility] [address] [place] [address] Dr. Jessica MosquedaPotassium [Moles/Vol]3.8 mmol/LNormal3.5-5.1[facility] Comment on above:Performed By: #### LIPID, CMP, TSH, T7 #### [facility] [address] [place] [address] Dr. Jessica MosquedaProtein [Mass/Vol]7.4 g/dLNormal6.4-8.2The [facility] Comment on above:Performed By: #### LIPID, CMP, TSH, T7 #### [facility] [address] [place] [address] Dr. Jessica MosquedaSodium [Moles/Vol]139 mmol/KBehiko589-758UdcLakehealth Beachwood Medical Center Comment on above:Performed By: #### LIPID, CMP, TSH, T7 #### [facility] [address] [place] [address] Dr. Jessica MosquedaUrea nitrogen [Mass/Vol]30.0 mg/dLCritically high7.0-18.0[facility] CenterComment on above:Performed By: #### LIPID, CMP, TSH, T7 #### [facility] [address] [address] [address] Jessica MosquedaUrea nitrogen/Creatinine [Mass ratio]14.7 mg/mgNoalThProtestant HospitalComment on above:Performed By: #### LIPID, CMP, TSH, T7 #### [facility] [address] [address] [address] Jessica Brown 25-68-1303Dpmlijooj Ql (U)NegativeNormalNEGATIVELakehealth Beachwood Medical CenterComment on above:Performed By: #### LIPID, CMP, TSH, T7 #### [facility] [address] [address] [address] Jessica MosquedaClarity (U)CLEARNormalCLEARLakehealth Beachwood Medical CenterComment on above: Performed By: #### LIPID, CMP, TSH, T7 #### [facility] [address] [address] [address] Jessica Parr (U)LT. YELLOWNormalYMercy HospitalComment on above:Performed By: #### LIPID, CMP, TSH, T7 #### [facility] [address] [address] [address] Jessica MosquedaGlucose Ql (U)NegativeNormalNEGFirelands Regional Medical CenterComment on above:Performed By: #### LIPID, CMP, TSH, T7 #### [facility] [address] [address] [address] Jessica MosquedaHemoglobin Ql (U)NegativeNormalNEGWright-Patterson Medical Center on above:Performed By: #### LIPID, CMP, TSH, T7 #### [facility] [address] [address] [address] Jessica MosquedaKetones Ql (U)NegativeNormalNEGATIVEFirelands Regional Medical Centerment on above:Performed By: #### LIPID, CMP, TSH, T7 #### [facility] [address] [address] [address] Jessica MosquedaLEUKOCYTESNegativeNormalNEGFirelands Regional Medical CenterComment on above:Performed By: #### LIPID, CMP, TSH, T7 #### [facility] [address] [address] [address] Jessica Norton Ql (U)NegativeNormalNEGATIVEThe St. [facility] HospitalComment on above:Performed By: #### LIPID, CMP, TSH, T7 #### [facility] [address] [place] [address] Dr. Jessica MosquedapH (U)5.5 [pH]Normal5-9The [facility]. [facility] HospitalComment on above: Performed By: #### LIPID, CMP, TSH, T7 #### [facility] [address] [place] [address] Dr. Jessica MosquedaSPEC GRAVITY1.437Kbszlh8.005-<=1.025The [facility]. [facility] HospitalComment on above:Performed By: #### LIPID, CMP, TSH, T7 #### [facility] [address] [place] [address] Dr. Jessica Darby PROTEINNegativeNormalNEGATIVE/ TRACEThe [facility] Comment on above:Performed By: #### LIPID, CMP, TSH, T7 #### [facility] [address] [place] [address] Dr. Jessica Thomas Qn (U)0.2 {Fran'U}/dLNormal0.2 - 1.0The [facility] HospitalComment on above:Performed By: #### LIPID, CMP, TSH, T7 #### [facility] [address] [place] [address] Dr. Jessica Bedolla T PROTEIN CREAT RATIOon 50-61-0398AX TOTAL PROTEIN<6.0 Normal<=12.0The [facility] HospitalComment on above:Performed By: #### LIPID, CMP, TSH, T7 #### [facility] [address] [place] [address] Dr. Jessica Bedolla CREAT23.46 mg/cGKmybun53.00-300.00[facility] Comment on above:Performed By: #### LIPID, CMP, TSH, T7 #### [facility] [address] [place] [address] Dr. Jessica Patterson 14(COMP METB)on 35-90-9715Eeuibov [Mass/Vol]3.8 g/dLNormal 3.4-5.0The [facility] HospitalComment on above:Performed By: #### LIPID, CMP, TSH, T7 #### [facility] [address] [address] [address] Jessica MosquedaAlbumin/Globulin [Mass ratio]1.3 {ratio}NormalThe St. [facility] HospitalComment on above:Performed By: #### LIPID, CMP, TSH, T7 #### [facility] [address] [address] [address] Jessica Mullins [Catalytic activity/Vol]35 U/LCritically bkt32-831Plk St. [facility] HospitalComment on above:Performed By: #### LIPID, CMP, TSH, T7 #### [facility] [address] [place] [address] Dr. Jessica Salinas [Catalytic activity/Vol]17 U/ZNpzawf61-76Tcf [facility] HospitalComment on above:Performed By: #### LIPID, CMP, TSH, T7 #### [facility] [address] [address] [address] Jessica Ibanez gap [Moles/Vol]12.2 mmol/LNormalThe [facility] Comment on above:Performed By: #### LIPID, CMP, TSH, T7 #### [facility] [address] [address] [address] Jessica MosquedaAST [Catalytic activity/Vol]13 U/LCritically sby37-69Xuw [facility] HospitalComment on above:Performed By: #### LIPID, CMP, TSH, T7 #### [facility] [address] [address] [address] Jessica MosquedaBilirubin [Mass/Vol]0.4 mg/dLNormal0.2-1.0The [facility] Comment on above:Performed By: #### LIPID, CMP, TSH, T7 #### [facility] [address] [address] [address] Jessica MosquedaCalcium [Mass/Vol]8.6 mg/dLNormal8.5-10.1[facility] Comment on above:Performed By: #### LIPID, CMP, TSH, T7 #### [facility] [address] [address] [address] Jessica MosquedaChloride [Moles/Vol]106 mmol/TYmxjwr44-974YfiLakehealth Beachwood Medical Center Comment on above:Performed By: #### LIPID, CMP, TSH, T7 #### [facility] [address] [address] [address] Jessica MosquedaCO2 [Moles/Vol]26.1 mmol/GZnsurg36.0-32.0[facility] Comment on above:Performed By: #### LIPID, CMP, TSH, T7 #### [facility] [address] [place] [address] Dr. Jessica MosquedaCreatinine [Mass/Vol]1.76 mg/dLCritically high0.55-1.02[facility] CenterComment on above:Performed By: #### LIPID, CMP, TSH, T7 #### [facility] [address] [place] [address] Dr. Jessica SalmonGFR-AF GMOKXNZF46 mL/min/1.94z2Augggennls low>=60The [facility] HospitalComment on above:Performed By: #### LIPID, CMP, TSH, T7 #### [facility] [address] [place] [address] Dr. Jessica SalmonGFR-NON AF IYAQPSJP99 mL/min/1.46q4Bujfddxzej low>=60The [facility] HospitalComment on above:Performed By: #### LIPID, CMP, TSH, T7 #### [facility] [address] [place] [address] Dr. Jessica MosquedaGlobulin (S) [Mass/Vol]3.0 g/dLNormalThe St. [facility] HospitalComment on above:Performed By: #### LIPID, CMP, TSH, T7 #### [facility] [address] [place] [address] Dr. Jessica MosquedaGlucose [Mass/Vol]81 mg/uEPidjgu05-169NnrLakehealth Beachwood Medical Center Comment on above:Performed By: #### LIPID, CMP, TSH, T7 #### [facility] [address] [address] [address] Jessica MosquedaPotassium [Moles/Vol]4.3 mmol/LNormal3.5-5.1The [facility] Comment on above:Performed By: #### LIPID, CMP, TSH, T7 #### [facility] [address] [address] [address] Jessica MosquedaProtein [Mass/Vol]6.8 g/dLNormal6.4-8.2The [facility] Comment on above:Performed By: #### LIPID, CMP, TSH, T7 #### [facility] [address] [place] [address] Dr. Jessica MosquedaSodium [Moles/Vol]140 mmol/MHgzode968-196Evf [facility] Comment on above:Performed By: #### LIPID, CMP, TSH, T7 #### [facility] [address] [place] [address] Dr. Jessica MosquedaUrea nitrogen [Mass/Vol]20.0 mg/dLCritically high7.0-18.0The [facility] HospitalComment on above:Performed By: #### LIPID, CMP, TSH, T7 #### [facility] [address] [place] [address] Dr. Jessica Hanson nitrogen/Creatinine [Mass ratio]11.4 mg/mgNormalThe St. [facility] HospitalComment on above:Performed By: #### LIPID, CMP, TSH, T7 #### [facility] [address] [place] [address] Dr. Jessica MosquedaPROF 14(COMP METB)on 25-58-3406Ybmktjp [Mass/Vol]4.0 g/dLNormal 3.4-5.0The [facility] HospitalComment on above:Performed By: #### LIPID, CMP, TSH, T7 #### [facility] [address] [place] [address] Dr. Jessica MosquedaAlbumin/Globulin [Mass ratio]1.2 {ratio}NormalThe St. [facility] HospitalComment on above:Performed By: #### LIPID, CMP, TSH, T7 #### [facility] [address] [address] [address] Jessica Mullins [Catalytic activity/Vol]31 U/LCritically gma90-703Igl [facility] Hospitalment on above:Performed By: #### LIPID, CMP, TSH, T7 #### [facility] [address] [address] [address] Jessica Salinas [Catalytic activity/Vol]19 U/XAiqrvr19-42Mfm [facility] HospitalComment on above:Performed By: #### LIPID, CMP, TSH, T7 #### [facility] [address] [place] [address] Dr. Jessica Ibanez gap [Moles/Vol]13.7 mmol/LNormalThe [facility] Comment on above:Performed By: #### LIPID, CMP, TSH, T7 #### [facility] [address] [place] [address] Dr. Jessica MosquedaAST [Catalytic activity/Vol]12 U/LCritically gbs61-43Zao [facility] HospitalComment on above:Performed By: #### LIPID, CMP, TSH, T7 #### [facility] [address] [place] [address] Dr. Jessica MosquedaBilirubin [Mass/Vol]0.3 mg/dLNormal0.2-1.0The [facility] Comment on above:Performed By: #### LIPID, CMP, TSH, T7 #### [facility] [address] [place] [address] Dr. Jessica MosquedaCalcium [Mass/Vol]9.3 mg/dLNormal8.5-10.1[facility] Comment on above:Performed By: #### LIPID, CMP, TSH, T7 #### [facility] [address] [place] [address] Dr. Jessica MosquedaChloride [Moles/Vol]106 mmol/IKpaeda98-813Rmb [facility] Comment on above:Performed By: #### LIPID, CMP, TSH, T7 #### [facility] [address] [place] [address] Dr. Jessica MosquedaCO2 [Moles/Vol]25.4 mmol/YSwonwu69.0-32.0The [facility] Comment on above:Performed By: #### LIPID, CMP, TSH, T7 #### [facility] [address] [address] [address] Jessica MosquedaCreatinine [Mass/Vol]1.84 mg/dLCritically high0.55-1.02The [facility] HospitalComment on above:Performed By: #### LIPID, CMP, TSH, T7 #### [facility] [address] [place] [address] Dr. Lopez ChangEGFR-AF DFBEFHCT48 mL/min/1.92l9Xduzujmagp low>=60The [facility] HospitalComment on above:Performed By: #### LIPID, CMP, TSH, T7 #### [facility] [address] [place] [address] Dr. Jessica SalmonGFR-NON AF EYNDFUAP54 mL/min/1.72b9Brntathtqb low>=60The [facility] HospitalComment on above:Performed By: #### LIPID, CMP, TSH, T7 #### [facility] [address] [place] [address] Dr. Jessica MosquedaGlobulin (S) [Mass/Vol]3.4 g/dLNormalThe St. [facility] HospitalComment on above:Performed By: #### LIPID, CMP, TSH, T7 #### [facility] [address] [place] [address] Dr. Jessica MosquedaGlucose [Mass/Vol]99 mg/wDSrokhn01-719QdaLakehealth [facility] Center Comment on above:Performed By: #### LIPID, CMP, TSH, T7 #### [facility] [address] [place] [address] Dr. Jessica MosquedaPotassium [Moles/Vol]4.1 mmol/LNormal3.5-5.1The [facility] Comment on above:Performed By: #### LIPID, CMP, TSH, T7 #### [facility] [address] [place] [address] Dr. Jessica MosquedaProtein [Mass/Vol]7.4 g/dLNormal6.4-8.2The [facility] Comment on above:Performed By: #### LIPID, CMP, TSH, T7 #### [facility] [address] [address] [address] Jessica Bricenodium [Moles/Vol]141 mmol/OYozszy393-092Noa [facility] Comment on above:Performed By: #### LIPID, CMP, TSH, T7 #### [facility] [address] [address] [address] Jessica Hanson nitrogen [Mass/Vol]25.0 mg/dLCritically high7.0-18.0[facility] CenterComment on above:Performed By: #### LIPID, CMP, TSH, T7 #### [facility] [facility] [address] [address] [address] Jessica Hanson nitrogen/Creatinine [Mass ratio]13.6 mg/mgNormalThe St. Francis HospitalComment on above:Performed By: #### LIPID, CMP, TSH, T7 #### [facility] [address] [address] [address] Jessica MosquedaCNOVSBeck [id number] ([place]) Office ([place]) CHULAISABEL LEDBETTER ([id number]) 1980 F Date Time Provider Department 09/04/19 3:45 PM LUIS ANGEL HALL During your visit today, we recorded the following information about you: Temperature Pulse Respiration Blood pressure 97.6 degrees 66/minute 18/minute 115/66 Weight Height 82.2 kg 1.676 m Luis Angel Hall DO 09/06/2019 9:21 AM Signed PATIENT NAME: Isabel Rivera REFERRING PHYSICIAN: Timothy Mills MD [address] [place] [address] Dr Bundy [facility] [address] PRIMARY CARE PHYSICIAN: Maren Ortiz MD CHIEF COMPLAINT: Factor v leiden (hcc) [...] did not have a lupus anticoagulant. Protein PHOTOGRAPHER MOTION PICTURE were within expected ranges. She had negative [...] 2017. Right posterior tibial vein and associated sports marketing specialist veins. Follows with Dr. Bateman, vascular. 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 Medications as of September 2017 [...] questions satisfactorily.. Ankit Hall D.O. Medical Oncologist [facility] [place], [place] Cc. Dr. Bateman. Referring Provider: LUIS ANGEL HALL [[id number]] Allergies As of Date: 09/04/2019 Noted Allergy [...] Status:Closed by LUIS ANGEL HALL DO on 09/06/19[facility] [id number] ID: [id number] Author: Luis Angel Hall Service: ? Author Type: Physician Type: Progress Notes Filed: 09/06/2019 9:21 AM Note Text: PATIENT NAME: Isabel Rivera REFERRING PHYSICIAN: Timothy Mills MD [address] [place] [address] [place] [address] PRIMARY CARE PHYSICIAN: Maren Ortiz MD CHIEF COMPLAINT: Factor v leiden (hcc) (primary encounter diagnosis) ASSESSMENT/PLAN: (D68.51) Factor V Leiden ([facility]) (primary encounter diagnosis) No orders found for [...] did not have a lupus anticoagulant. Protein PHOTOGRAPHER MOTION PICTURE were within expected ranges. She had negative [...] 2017. Right posterior tibial vein and associated sports marketing specialist veins. Follows with Dr. Bateman, vascular. 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 Medications as of September 2017 [...] questions satisfactorily.. Ankit Hall D.O. Medical Oncologist [place], [place] Cc. Dr. Bateman.[facility] HospitalCNOVSPon [id number] ([place]) Office ([place]) PATRICIAISABEL KENT ([id number]) 1980 F Date Time Provider Department 07/30/19 3:45 PM LUIS ANGEL HALL [place] During your visit today, we recorded the following information about you: Temperature Pulse Respiration Blood pressure 98.4 degrees 61/minute 16/minute 107/69 Weight Height 80.6 kg 1.676 m Luis Angel Hall DO 08/02/2019 11:50 AM Signed PATIENT NAME: Isabel Rivera REFERRING PHYSICIAN: Timothy Mills MD [address] [place] [address] [place] [address] PRIMARY CARE PHYSICIAN: Maren Ortiz MD CHIEF COMPLAINT: Acute deep vein thrombosis [...] TIBC - CBC + DIFF (FOR REMOTE [facility] USE) - BASIC METABOLIC PNL - [...] 2017. Right posterior tibial vein and associated sports marketing specialist veins. Follows with Dr. Bateman, vascular. 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 Medications as of September 2017 [...] questions satisfactorily.. Ankit Hall D.O. Medical Oncologist [place], [place] Cc. Dr. Bateman. Referring Provider: TIMOTHY MILLS [[id number]] Allergies As of Date: 07/30/2019 (Not on File) Date Reviewed: 07/30/2019 Reviewed by: Lavonne Borrego - Fully Assessed Reason for Visit: Consult [173] Primary Visit Diagnosis:Acute deep vein thrombosis (DVT) of proximal vein of both lower extremities (HCC) [I82.4Y3] Order(s):US LEG VEIN DVT [facility] [[id number]] Order #: [id number] FUTURE FACTOR V LEIDEN/PCR [SQFVLEID] Order #: [id number] FUTURE PROTHROMBIN GENE PCR [SQPTGENE] Order #: [id number] FUTURE PROTEIN C FUNCT [SQPRCFUN] Order #: [id number] FUTURE PROTEIN S CLOTTABLE [SQPRSCLT] Order #: [id number] FUTURE ANTITHROMBIN ACTIVITY [THGD0EOG] Order #: [id number] FUTURE LUPUS ANTICOAG PL [SQLUPUSP] Order #: [id number] FUTURE B 2 GPI IGG AND IGM [MXS9DEZL] Order #: [id number] FUTURE ANTI-CARDIOLIPIN AB [SQCARDIO] Order #: [id number] FUTURE HOMOCYSTEINE [SQHOMCYS] Order #: [id number] FUTURE FERRITIN BLD [SQFERR] Order #: [id number] FUTURE IRON + TIBC [SQIRON] Order #: [id number] FUTURE CBC + DIFF (FOR REMOTE [facility] USE) [SQRCBCDF] Order #: [id number] FUTURE BASIC METABOLIC PNL [SQBMP] Order #: [id number] FUTURE HEPATIC FUNCTION PNL [SQHFP] Order #: [id number] FUTURE Disposition: Return labs today. f/u 4 [...] Status:Closed by LUIS ANGEL HALL DO on 08/02/19[facility] [id number] ID: [id number] Author: Luis Angel Hall Service: ? Author Type: Physician Type: Progress Notes Filed: 08/02/2019 11:50 AM Note Text: PATIENT NAME: Isabel Rivera REFERRING PHYSICIAN: Timothy Mills MD [address] [place] [address] [place] [address] PRIMARY CARE PHYSICIAN: Maren Ortiz MD CHIEF COMPLAINT: Acute deep vein thrombosis [...] TIBC - CBC + DIFF (FOR REMOTE [facility] USE) - BASIC METABOLIC PNL - [...] 2017. Right posterior tibial vein and associated sports marketing specialist veins. Follows with Dr. Bateman, vascular. 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 Medications as of September 2017 [...] questions satisfactorily.. Ankit Hall D.O. Medical Oncologist [place], [place] Cc. Dr. Bateman.[facility] Vital Signs Date TimeVital SignValuePerforming CfoefezakRffgwpuy11-16-6123 13:48-0400Body qelgoj28.76 kgCorey Greg DO Work Phone: [facility] HospitalXkfzrvebvr[facility] 13:48-0400Diastolic blood mm[Hg]Sandy Greg DO Work Phone: [facility] HospitalXzhkmygoew79-82-4410 13:48-0400Systolic blood aiqszroo362 mm[Hg]Sandy Greg DO Work Phone: [phone] HospitalUznufqkboh80-75-6163 16:09-0400Body hkzwha220.64 cmMaren Ortiz MD Work Phone: [phone]08-21-2025 16:09-0400 Body mass index (BMI) [Ratio]29 kg/q1ZtjrejhMaren Ortiz MD Work Phone: [phone]08-21-2025 16:09-0400 Body dpayvr49.64 kgMaren Ortiz MD Work Phone: [phone] [place], [place] 7163108-21-2025 16:09-0400 Diastolic blood kdmaqaxf59 mm[Hg]Maren Ortiz MD Work Phone: [phone]08-21-2025 16:09-0400 Heart rate61 /Minerva Ortiz MD Work Phone: [phone])[facility]08-21-2025 16:09-0400 Respiratory rate16 /Minerva Ortiz MD Work Phone: 1(544)[facility] [place], [place] 0180308-21-2025 16:09-0400 SaO2% (BldA) [Mass fraction]99 %Maren Ortiz MD Work Phone: [phone]08-21-2025 16:09-0400 Systolic blood rkospzhm837 mm[Hg]Maren Ortiz MD Work Phone: [phone])[address]05-29-2025 16:30-0400 Body utqfol381.64 cmMer[facility] Health [facility]05-29-2025 16:30-0400Body mass index (BMI) [Ratio]30.8 kg/h8YkbhopphwMercy Health [facility] Hospital05-29-2025 16:30-0400Body sykbzemjjbf78.6 [degF][facility]05-29-2025 16:30-0400Body kbexfy74.69 kgMercy Health [facility]05-29-2025 16:30-0400Diastolic blood gbtneesp63 mm[Hg][facility] 01-15-2025 16:30-0400Heart rate49 /[facility] 01-15-2025 16:30-0400Respiratory rate16 /[facility] 01-15-2025 16:30-3144GqJ0% (BldA) [Mass fraction]100 %[facility]05-29-2025 16:30-0400Systolic blood dufgcytz797 mm[Hg][facility]02-13-2025 15:31-0500Body oupgyw213.64 cmMercy Health [facility] Hospital02-13-2025 15:31-0500Body mass index (BMI) [Ratio]32.1 kg/m2 [facility]02-13-2025 15:31-0500Body pypptk75.43 kg [facility]02-13-2025 15:31-0500Diastolic blood gvuygolw50 mm[Hg][facility]02-13-2025 15:31-0500Heart rate65 /min [facility]02-13-2025 15:31-0500Respiratory rate16 /min [facility]02-13-2025 15:31-4110OxK7% (BldA) [Mass fraction]100 %[facility]02-13-2025 15:31-0500Systolic blood qbtomtjd971 mm[Hg][facility]11-21-2024 10:21-0500 Body .64 cmMercy Health [facility]11-21-2024 10:21-0500Body mass index (BMI) [Ratio]32.6 kg/v2FpuyvbzpcMercy Health [facility]sburg Hospital11-21-2024 10:21-0500Body yutkczqlnuk97 [degF][facility]11-21-2024 10:050Body xpwaut79.68 kgMercy Health [facility] Hospital11-21-2024 10:0500Diastolic blood fsydpxob444 mm[Hg][facility] 07-10-2024 10:0500Heart rate62 /[facility] 07-10-2024 10:0500Respiratory rate16 /[facility] 07-10-2024 10:3998LeI7% (BldA) [Mass fraction]100 %[facility]11-21-2024 10:0500Systolic blood qtatbtlu281 mm[Hg][facility]08-08-2024 16:25-0400Body .64 cmMer[facility] Health [facility]08-08-2024 16:25-0400Body mass index (BMI) [Ratio]32.3 kg/m2 [facility]08-08-2024 16:25-0400Body rwnrkgnuvvl62.9 [degF][facility]08-08-2024 16:25-0400Body vhnbec04.74 kg [facility]08-08-2024 16:25-0400Diastolic blood igxdopsw13 mm[Hg][facility]08-08-2024 16:25-0400Heart rate53 /min [facility]08-08-2024 16:25-0400Respiratory rate16 /min [facility]08-08-2024 16:25-2997JjD0% (BldA) [Mass fraction]100 %[facility]08-08-2024 16:25-0400Systolic blood bgctahbj493 mm[Hg][facility]05-23-2024 15:58-0400 Body .64 cmMer[facility] Health [facility]05-23-2024 15:58-0400Body mass index (BMI) [Ratio]33.5 kg/u2PaxxpmoquMercy Health [facility]sburg Hospital05-23-2024 15:58-0400Body irbptzfkquf11.2 [degF][facility]05-23-2024 15:58-0400Body qckkdu43.34 kgMercy Health [facility] Hospital05-23-2024 15:58-0400Diastolic blood adrrvfqs57 mm[Hg][facility] 01-10-2024 15:58-0400Heart rate68 /minMer[facility] Health [facility] 01-10-2024 15:58-0400Respiratory rate16 /minMercy Health [facility]sburg Hospital 01-10-2024 15:58-7815PvZ0% (BldA) [Mass fraction]100 %[facility]05-23-2024 15:58-0400Systolic blood gnovxjkm382 mm[Hg][facility]02-22-2024 15:51-0500Body pfgote269.64 cmMercy Health [facility] Hospital02-22-2024 15:51-0500Body mass index (BMI) [Ratio]33.6 kg/m2 [facility]02-22-2024 15:51-0500Body erzvnuomvyr16.9 [degF][facility]02-22-2024 15:51-0500Body wmapqo67.57 kg [facility]02-22-2024 15:51-0500Diastolic blood twqrevil84 mm[Hg][facility]02-22-2024 15:51-0500Heart rate72 /min [facility]02-22-2024 15:51-0500Respiratory rate16 /min [facility]02-22-2024 15:51-2461EyW2% (BldA) [Mass fraction]100 %[facility]02-22-2024 15:51-0500Systolic blood hbcdevwa575 mm[Hg][facility]11-09-2023 16:00-0500 Body .72 cmEssparam Becerra Other [employer] Other 603678-15-1887 16:00-0500Body mass index (BMI) [Ratio] 31.35 kg/v0JavicMaeve Becerra Other [employer] Other 851438-65-1204 16:00-0500Body lnhxxeetiiu58.3 [degF]Maeve Becerra Other [employer] Other 11-09-2023 16:00-0500Body kqgafw11.53 kgMaeve Becerra Other [employer] [place] Other 11-09-2023 16:00-0500Diastolic blood uoaojiqp63 mm[Hg] Maeve Becerra Other [place] [employer] Other 11-09-2023 16:00-0500Respiratory rate18 /minEmagno Becerra Other [place] [employer] Other 11-09-2023 16:00-0272SxY4% (BldA) [Mass fraction]98 % Maeve Becerra Other [place] [employer] Other 11-09-2023 16:00-0500Systolic blood xvdnryjg999 mm[Hg] Maeev Becerra Other [employer] Other 08-17-2023 16:00-0400Body oheonj074.72 cmEmagno Becerra Other [employer] [place] Other 08-17-2023 16:00-0400Body mass index (BMI) [Ratio] 31.23 kg/n2DsdpqMaeve Becerra Other [employer] Other 08-17-2023 16:00-0400Body cuirnafqgaw82.4 [degF]Maeve Becerra Other [employer] [place] Other 08-17-2023 16:00-0400Body tdlsaa16.17 kgMaeve Becerra Other [employer] Other 08-17-2023 16:00-0400Diastolic blood mm[Hg] Maeve Becerra Other [employer] Other 08-17-2023 16:00-0400Respiratory rate18 /minEmagno Becerra Other [employer] Other 08-17-2023 16:00-0167XcC7% (BldA) [Mass fraction]99 % Maeve Sahnidank Other [employer] Other 08-17-2023 16:00-0400Systolic blood fmnskqih993 mm[Hg] Maeve Sahnidank Other [employer] Other 05-04-2023 17:00-0400Body rvemrd930.72 cmEmagno Becerra Other [employer] Other 05-04-2023 17:00-0400Body mass index (BMI) [Ratio] 31.14 kg/m7Ovtpx Tiffanie Other [employer] Other 05-04-2023 17:00-0400Body bpbcfduhubc00.5 [degF]Maeve Tiffanie Other [employer] Other 05-04-2023 17:00-0400Body isjxus62.9 kgMaeve Tiffanie Other [employer] Other 05-04-2023 17:00-0400Diastolic blood adrnfwya97 mm[Hg] Maeve Tiffanie Other [employer] Other 05-04-2023 17:00-0400Respiratory rate18 /Jose R Becerra Other [employer] Other 05-04-2023 17:00-7777QgA2% (BldA) [Mass fraction]98 % Maeve Becerra Other [employer] Other 05-04-2023 17:00-0400Systolic blood gavglexk794 mm[Hg] Maeve Becerra Other [employer] Other 02-09-2023 17:00-0500Body ukdsvy881.72 cmEmagno Becerra Other [employer] Other 02-09-2023 17:00-0500Body mass index (BMI) [Ratio] 31.11 kg/q8AwczoMaeve Becerra Other [employer] Other 02-09-2023 17:00-0500Body guohexddryl16.2 [degF]Maeve Becerra Other [employer] Other 02-09-2023 17:00-0500Body wihtdo99.81 kgMaeve Becerra Other [employer] Other 02-09-2023 17:00-0500Diastolic blood mldbesef94 mm[Hg] Maeve Becerra Other [employer] Other 02-09-2023 17:00-0500Respiratory rate18 /Jose R Becerra Other [employer] Other 02-09-2023 17:00-2004UhK4% (BldA) [Mass fraction]98 % Maeve Becerra Other [employer] Other 02-09-2023 17:00-0500Systolic blood wehmzzwr481 mm[Hg] Maeve Becerra Other [employer] Other 11-17-2022 17:00-0500Body hzkiwc569.72 cmEmagno Becerra Other [employer] Other 11-17-2022 17:00-0500Body mass index (BMI) [Ratio] 30.32 kg/i7GnhprMaeve Sahnidank Other [employer] Other 11-17-2022 17:00-0500Body fkbepusytqv21.1 [degF]Maeve Sahnidank Other [employer] Other 11-17-2022 17:00-0500Body .45 kgMaeve Becerra Other [employer] Other 11-17-2022 17:00-0500Diastolic blood gvbbozwq78 mm[Hg] Maeve Sahnidank Other [employer] Other 11-17-2022 17:00-0500Respiratory rate18 /minEmagno Becerra Other [employer] Other 11-17-2022 17:00-6773AtF1% (BldA) [Mass fraction]99 % Maeve Tiffanie Other [employer] Other 11-17-2022 17:00-0500Systolic blood hacmaqgq457 mm[Hg] Maeve Tiffanie Other [employer] Other 08-04-2022 16:40-0400Body wagcgw676.72 cmEmagno Becerra Other [employer] Other 08-04-2022 16:40-0400Body mass index (BMI) [Ratio] 30.47 kg/f6RoqaxMaeve Becerra Other [employer] Other 08-04-2022 16:40-0400Body tbvwropimea00.9 [degF]Maeve Becerra Other [employer] Other 08-04-2022 16:40-0400Body ypvxip51.9 kgMaeve Becerra Other [employer] Other 08-04-2022 16:40-0400Diastolic blood wmnivusm67 mm[Hg] Maeve Becerra Other [employer] Other 08-04-2022 16:40-0400Respiratory rate18 /minEmagno Becerra Other [employer] Other 08-04-2022 16:40-6192CfN2% (BldA) [Mass fraction]99 % Maeve Becerra Other [employer] Other 08-04-2022 16:40-0400Systolic blood mnonzujj024 mm[Hg] Maeve Becerra Other [employer] Other 12-21-2021 17:00-0500Body iivszm451.72 cmEmagno Becerra Other [employer] Other 12-21-2021 17:00-0500Body mass index (BMI) [Ratio] 30.53 kg/g2HsprmMaeve Becerra Other [facility] [place] Other 12-21-2021 17:00-0500Body kbiayy29.08 kgMaeve Becerra Other [place] [employer] Other 12-21-2021 17:00-0500Diastolic blood ebposbdd79 mm[Hg] Maeve Becerra Other [place] [employer] Other 12-21-2021 17:00-0500Respiratory rate18 /minEmagno Becerra Other [place] [employer] Other 12-21-2021 17:00-3103HmI8% (BldA) [Mass fraction]99 % Maeve Becerra Other [place] [employer] Other 12-21-2021 17:00-0500Systolic blood mm[Hg] Maeve Becerra Other [place] Other Encounters Encounter DateEncounter TypeCare ProviderFacilityStart: 05-05-2025 End: 23-08-4446Vtjfcf flowsheetCorey Greg DO Work Phone: [facility]BGYNStart: 05-05-2025 End: 48-79-8434Jxtwmi flowsheetCorey Greg DO Work Phone: no Og OBGYNStart: 05-05-2025 End: 37-27-6482Zujeay outpatient visit 15 minutesCorey Greg DO Work Phone: noMS Og OBGYNComment on above:Pelvic pain in female; Uterine leiomyoma, unspecified locationStart: 05-05-2025 End: 85-55-4658orbukxuhtcCHNXH Joslyn AvailableStart: 04-09-2025 End: 35-15-4523vuxvhzadsvGwnbdte M Hoy MD Work Phone: [facility] Work Phone: Start: 04-09-2025 End: 99-04-5286Ehlqeec encounter procedureMaeve Becerra MD-[facility] Work Phone: Start: 01-15-2025 End: 59-89-9356fjjqdyulvgMwtpcooksGreene [facility] Hospital Work Phone: Start: 01-15-2025 End: 63-97-9759Wbvkwrz encounter procedureAt[facility]Former[facility] [place] Work Phone: Start: 10-02-2024 End: 94-27-1127eghonmagmbJzyqseqfyGreene Memorial Hospital Work Phone: Start: 10-02-2024 End: 71-71-2112Dvfsfde encounter procedureVenanciorappahannock general hospital [facility] [place] Work Phone: Start: 07-10-2024 End: 94-65-1257zquoaznzxsZxttaepmmGreene Memorial Hospital Work Phone: Start: 07-10-2024 End: 07-08-1064Dfllfwz encounter procedureVenanciorappahannock general hospital Physician Group-[facility] Nephrology Jyoti Work Phone: Start: 03-27-2024 End: 92-91-0657tqmvtqbaqoAwopahkncGreene Memorial Hospital Work Phone: Start: 03-27-2024 End: 02-61-6931Bhlrmss encounter procedureAt[facility] Health [facility] Work Phone: Start: 45-66-5210Ybo-patient / Non-visitRas Physician Group-[facility] Work Phone: Start: 01-10-2024 End: 39-96-8205ldzkbhpathNpasswtzjGreene Memorial Hospital Work Phone: start: 01-10-2024 End: 55-59-9383Fhhmsne encounter procedureAt[facility] Health [facility] Nephrology Work Phone: Start: 10-11-2023 End: 06-72-1252csvfairlwcElbzweabzGreene Memorial Hospital Work Phone: Start: 10-11-2023 End: 04-27-4601Odfpbjn encounter procedureAt[facility] Health [facility] Nephrology Work Phone: Start: 06-28-2023 End: 14-93-8946qsbtgicfesYhrbi Elashi Other [employer] Other Start: 59-46-1541Zppkbd outpatient visit 15 minutes Essam ElashiFPG NephrologyStart: 06-26-2023 End: 73-73-5319ggjjsdmfseAxlij Elashi Other [employer] Other Start: 56-72-5216Gntuxpznr encounterEssam ElashiFPG NephrologyStart: 05-07-2023 End: 87-85-6995mrnyhewjuoNmdhp Elashi Other [employer] Other Start: 08-99-6636Rnyfcszsk encounterEssam ElashiFPG NephrologyStart: 04-05-2023 End: 02-31-3629tfawzdcpetJzhsq Elashi Other [employer] Other Start: 59-15-1805Eyqhxt outpatient visit 25 minutes Essam ElashiFPG NephrologyStart: 03-27-2023 End: 30-57-7161rudzsgvpcmKqwgz Elashi Other [employer] Other Start: 79-76-3163Sejtgtnxu encounterEssam ElashiFPG NephrologyStart: 03-12-2023 End: 44-25-7474dzqmpckufbIyhcl Elashi Other [employer] Other Start: 56-13-3465Utpztbzny encounterEssam ElashiFPG NephrologyStart: 12-21-2022 End: 08-20-1440aptvvdkzhvLkyby Elashi Other [employer] Other Start: 10-01-8261Larszq outpatient visit 25 minutes Essam ElashiFPG NephrologyStart: 12-18-2022 End: 66-00-7585hyxivzhbfmZemak Elashi Other [employer] Other Start: 95-11-0290Ywdssaxhg encounterEssam ElashiFPG NephrologyStart: 12-13-2022 End: 48-10-0168aimsxltyvgXA ESSAM ELASHIFacility:R1Iyyzn: 11-14-2022 End: 80-66-6689bnklczewmjBK MAREN HOY .Facility:G5Gucty: 47-88-6492Evjvvmbaj for general adult medical examination without abnormal findingsDR MAREN HOY . [facility] Centertart: 11-10-2022 End: 93-43-9406kcyabxdzwaEV MAREN HOY .Facility:O2Xalif: 11-10-2022 End: 43-63-4819Jhulqdahu for general adult medical examination without abnormal findingsDR MAREN HOY .Facility:T0Yguxc: 09-28-2022 End: 60-97-2986elgihpmpcgTzkla Elashi Other [employer] Other Start: 36-39-4163Jajqzl outpatient visit 25 minutes Essam ElashiFPG NephrologyStart: 09-26-2022 End: 74-82-2995tclgtdhafnOV ESSAM ELASHIFacility:X6Aygrf: 07-06-2022 End: 33-88-9832vpmkugvzfvTrdal Elashi Other [employer] Other Start: 81-41-0381Pugjhz outpatient visit 25 minutes Essam ElashiFPG NephrologyStart: 07-04-2022 End: 93-39-3403mzqvpvewqsKvcok Elashi Other [employer] Other Start: 19-65-1199Dckajdzrc encounterEssam ElashiFPG NephrologyStart: 06-29-2022 End: 33-02-8318wltfntihssCX ESSAM ELASHIFacility:B5Kcoxp: 05-25-2022 End: 87-79-8381tvoklwjrhzTO ESSAM ELASHIFacility:R2Nmmtj: 04-25-2022 End: 23-09-9971pdesxuesddWP ESSAM ELASHIFacility:K7Roxsi: 04-17-2022 End: 20-04-1705ngrcbhjetsSnhoj Elashi Other [employer] Other Start: 26-29-4013Njgwfalug encounterEssam ElashiFPG NephrologyStart: 03-23-2022 End: 22-01-7548jnorcdjtrkKosrf Elashi Other [employer] Other Start: 69-63-6314Uqttse outpatient visit 25 minutes Essam ElashiFPG NephrologyStart: 03-22-2022 End: 59-46-4131vsbswdukquDE ESSAM ELASHIFacility:J9Txobo: 02-06-2022 End: 61-61-0213qcazxlvivjQK ESSAM ELASHIFacility:D8Roabl: 01-13-2022 End: 36-04-0793citumhltxvYX ESSAM ASHINost. lou[facility] [place] Other Start: 37-83-5307Kkqcjyrgx encounterEssam ElashiFPG NephrologyStart: 10-04-2021 End: 81-56-4010vqxuimbmhbFmvdj Elashi Other [employer] Other Start: 55-37-9495Spranylek encounterEssam ElashiFPG NephrologyStart: 09-14-2021 End: 02-07-3013pjjjqhiyelRudxz Elashi Other [employer] Other Start: 23-32-8987Lmwucmomi encounterEssam ElashiFPG NephrologyStart: 08-09-2021 End: 42-93-3151xhvjyifdkxEafdw Elashi Other [employer] Other Start: 74-16-3251Gbytiz outpatient visit 25 minutes Essam ElashiFPG NephrologyStart: 07-26-2021 End: 63-84-8082ysgwwnjdedIqwqj Elashi Other [place] [employer] Other Start: 69-90-3325Jevinyegr encounterEssam ElashiFPG Referral CoordinatorStart: 09-28-2020 End: 73-15-1318uzpjevfmgcFcnkv Elashi Other [place] [employer] Other Start: 12-50-3898Bmikskezx encounterEssam ElashiFPG Nephrology Plan of Treatment DateCare ActivityDetailAuthorStart: 07-23-2025 End: 77-66-4670Gyyusmjaqezc / ancillary services /04/2025 8:00 AM EST Ancillary Procedure [facility] [address] [place] [address] [facility] [place] OBGYNStart: 06-10-2025 End: 57-31-2247Aptvucc encounter wapooevsp23/22/2025 3:30 PM EDT Procedure Visit [facility] [address] [place] [address] Sandy Garza, DO [address] [place], [place] [id number] JERMAINIsabel Og OBGYNStart: 05-05-2025 End: 42-47-8778KI PelvisUS Pelvis w/ TV Imaging Routine Pelvic pain in female Uterine leiomyoma, unspecified location Expected: 05/05/2025, Expires: 11/02/2025[facility] Work Phone: comment on above:Expected: 05/05/2025, Expires: 11/02/2025Start: 05-05-2025 End: 23-06-9052Gjjanji encounter vddagvtyo14/16/2025 1:40 PM EDT Office Visit [facility] [facility] [address] [place] [id number] Sandy Garza DO [address] [place] [address] ArrivedNOMS Foley OBGYNComment on above:ArrivedStart: 74-54-3040Hetyyoheq vaccinationInfluenza Vaccine (#1)[facility] HealthcareStart: 41-41-2346Gnzuoxubn for malignant neoplasm of breastMammogram [facility] HealthcareStart: 55-70-8999Nexllwasy for malignant neoplasm of cervixNOMS HealthcareStart: 09-16-7726Dggdqgbzq for malignant neoplasm of cervixPap [facility]Com[facility] 1999 [facility] - Serum or [facility] 1999 panel - Serum or Plasma [facility] 1999 panel - Serum or [facility] 1999 panel - Serum or [facility] 1999 panel - Serum or [facility] metabolic 1999 panel - Serum or [facility] CenterCom[facility] 1999 panel - Serum or [facility] Phospholipase A2 receptor IgG Ab [Units/volume] in Serum by ImmunoassayPsychiatric hospital, demolished 2001[facility] Center[facility] Immunizations Immunization DateImmunizationNotesCare [id number] virus vaccine, unspecified formulationSandy Greg DO Work Phone: [employer] Payers DatePayer CategoryPayerPolicy [id number] Care O (unspecified)[employer] [facility] Address: [address] [id number] [id number] 2..1.468766.3.57[id number] 2..1.131084.3.57[id number] 2..1.309412.3.57[id number] 2..1.130318.3.57[id number] 2..1.830725.3.57[id number] 2..1.173245.3.57[id number] 2..1.608094.3.57[id number] 2..840.1.384671.3.57[id number] 2.16.840.1.346383.3.57[id number] 2.16.840.1.396146.3.57[id number] 2.16.840.1.297248.3.579.2.657838-76-7208[facility] [id number] 2.16.840.1.779723.19Private Health InsuranceAetna Insurance [id number]-[id number] Pay [id number] Social History DateTypeDetailFacilityUnknown if ever smokedLouisville [place] Other [facility] [place] Other Start: 10-11-2023 End: [id number] smoking status NHISNever smoked tobacco (finding) [facility] Centertart: [id number] [facility] At [facility]tart: 07-10-2024 End: [id number] (finding)[facility] HospitalTobasouthwestern [facility] smoking status NHISTobacco smoking consumption [facility] NorthStart: [id number] assigned at critical access hospitalNot on [facility] Clinical Notes 09-28-2020 to 05-05-2025 Note Date & [id number] History of Present illness Narrative* Isabel Codi, DIDIER - 05/05/2025 1:40 PM EDT Reason for Appointment: Patient ID: Isabel Rivera is a 44 y.o. female who presents for Discuss Pelvic Pain Patient presents today for Consult appointment. MEDICATIONS Current Outpatient Medications Medication Instructions cetirizine (ZyrTEC) 10 MG chewable tablet Every 24 hours pantoprazole (ProtoNix) 40 MG EC tablet TAKE 1 TABLET BY MOUTH EVERY DAY; Duration: 90 Tolvaptan (Jynarque) 90 & 30 MG tablet therapy pack as directed Orally Xarelto 20 MG tablet TAKE 1 TABLET BY MOUTH EVERY DAY; Duration: 90 ALLERGIES Allergies Allergen Reactions Sulfa Antibiotics Hives and Rash PROBLEMS Active Ambulatory Problems Diagnosis Date Noted No Active Ambulatory Problems Resolved Ambulatory Problems Diagnosis Date Noted No Resolved Ambulatory Problems No Additional Past Medical History HISTORY PAST MEDICAL HISTORY SOCIAL HISTORY No past medical history on file. Social History Tobacco Use Smoking status: Not on file Smokeless tobacco: Not on file Substance Use Topics Alcohol use: Not on file Drug use: Not on file FAMILY HISTORY No family history on file. SURGICAL HISTORY No past surgical history on file. REVIEW OF SYSTEMS Review of Systems: Review of Systems Constitutional: Negative. HENT: Negative. Eyes: Negative. Respiratory: Negative. Cardiovascular: Negative. Gastrointestinal: Negative. Genitourinary: Positive for menstrual problem and pelvic pain. Musculoskeletal: Negative. Skin: Negative. Neurological: Negative. All other systems reviewed and are negative. Hematological: Negative. Endocrine: Negative. Allergic/Immunologic: Negative. OBJECTIVE Objective: Physical Exam Constitutional: Appearance: Normal appearance. She is well-developed. Cardiovascular: Rate and Rhythm: Normal rate and regular rhythm. Pulmonary: Effort: Pulmonary effort is normal. Breath sounds: Normal breath sounds. Abdominal: General: Bowel sounds are normal. There is no distension. Palpations: Abdomen is soft. Tenderness: There is no abdominal tenderness. There is no guarding or rebound. Musculoskeletal: General: No swelling. Normal range of motion. Right lower leg: No edema. Left lower leg: No edema. Neurological: Mental Status: She is alert and oriented to person, place, and time. Skin: General: Skin is warm and dry. Psychiatric: Mood and Affect: Mood normal. Behavior: Behavior normal. Vitals and nursing note reviewed. Exam conducted with a settlement worker present. Vitals: There is no height or weight on file to calculate BMI. BP: 132/84 No LMP recorded. ASSESSMENT & PLAN ICD-10-CM 1. Pelvic pain in female R10.2 2. Uterine leiomyoma, unspecified location D25.9 Pt presents with pain in lower pelvic region. Pt has uterine fibroid. Pt has polycystic kidney disease. Creatinine level elevated. Pt has a baseball size fibroid. Discussed dx lap and d&c hysteroscopy with elevated creatinine, will consult anesthesia and renal dr. Pt uses Dr Becerra kidney Dr singleton. Discussed Dr Avery consult as well. Pt to return in 3 weeks for EMBX. And will discuss surgery and referral. Pt considering. Documented by Isabel Kincaid LPN on behalf of: Sandy Garza DO documented in this [facility]05-29-2025 Evaluation note* Diagnosis Onset Date Resolution Status Admit Date ADPKD (autosomal dominant polycystic 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) acuteMa2024 4:03pmCKD (chronic kidney disease) stage 4, GFR 15-29 ml/min acuteJanuary 15, 2025 4:03pmFactor V LeidenacuteMay 2024 4:03pmHypertensive chronic kidney disease with stage 1 through stage 4 chronic kiacuteMay 2024 4:03pmADPKD (autosomal dominant polycystic kidney disease)acuteAugust 2024 4:08pmCKD (chronic kidney disease) stage 4, GFR 15-29 ml/minacuteAugust 2024 4:08pmFactor V LeidenacuteAugust 2024 4:08pmHypertensive chronic kidney disease with stage 1 through stage 4 chronic kiacuteAugust 2024 4:08pm [facility] Work Phone: 1(196) 377-710911-21-2024 Evaluation note* Diagnosis Onset Date Resolution Status Admit Date ADPKD (autosomal dominant polycystic 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) acuteJuly 10, 2024 3:50pmCKD (chronic kidney disease) stage 4, GFR 15-29 ml/minacuteNov2023 3:50pmFactor V LeidenacuteNovember 2023 3:50pmHypertensive chronic kidney disease with stage 1 through stage 4 chronic kiacuteNovember 2023 3:50pmADPKD (autosomal dominant polycystic kidney disease)acuteFebruary 2024 3:29pmCKD (chronic kidney disease) stage 4, GFR 15-29 ml/minacuteFebruary 2024 3:29pmFactor V LeidenacuteFebruary 2024 3:29pmHypertensive chronic kidney disease with stage 1 through stage 4 chronic kiacuteFebruary 2024 3:29pm [facility] Work Phone: 1(615) 707-369911-09-2023 Evaluation note* Encounter Date Diagnosis Assessment Notes Treatment Notes Treatment Clinical Notes Jun, 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 liver function panel was monitored monthly and she has normal AST and ALT. creatinine has increased from 1.3 mg/dL and 2020 up to 1.8 mg/dL immedialtly after starting Jynarque but hasbeen stable after that. Patient has a very [...] She was informed that they may need INSURANCE FOLLOW UP REPRESENTATIVE in near future. Will refer to transplant evaluation once GFR < 20 ml/min. She does not have a donor Jun,KD (chronic kidney disease) stage 4, GFR 15-29 ml/min (ICD-10 - N18.4)Renal function has been quite variable since she was started on Jynarque. Currently creatinine 2.2 mg/dL, it has been variable between 1.6 to 2 mg/dL over the last year according to volume status andstate of hydration. Patient was advised to increase water intake since she is expected to have moreurine output with tolvaptan. Monitor renal panel every 3 months and adjust medications as indicated. Currently she has normal hemoglobin with no RADHA. She has normal calcium, phosphorus and intact PTH. Jun,Factor V Leiden (ICD-10 - D68.51)Patient has been on Xarelto for factor V. Leiden mutation. She has no recent blood clots. She has no bleeding events or hematuria. Jun,Elevated blood pressure (ICD-10 - R03.0)Repeat blood pressure in my office was 118/82. She has sphygmomanometer at home and home blood pressure monitor showed systolic blood pressure between 120s with some readings 130s. We will continue low-salt diet and will start SAURABH inhibitors if systolic blood pressure persistently more than 140s. She has no proteinuria. 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 liver function panel was monitored monthly and she has normal AST and ALT. creatinine has increased from 1.3 mg/dL and 2020 up to 1.8 mg/dL immedialtly after starting Jynarque but hasbeen stable after that. Patient has a very [...] She was informed that they may need INSURANCE FOLLOW UP REPRESENTATIVE in near future. Will refer to transplant evaluation once GFR < 20 ml/min. She does not have a donor Mar,KD (chronic kidney disease) stage 4, GFR 15-29 ml/min (ICD-10 - N18.4)Renal function has been quite variable since she was started on Jynarque. Currently creatinine 2.2 mg/dL, it has been variable between 1.6 to 2 mg/dL over the last year according to volume status andstate of hydration. Patient was advised to increase water intake since she is expected to have moreurine output with tolvaptan. Monitor renal panel every 3 months and adjust medications as indicated. Currently she has normal hemoglobin with no RADHA. She has normal calcium, phosphorus and intact PTH. Mar,Factor V Leiden (ICD-10 - D68.51)Patient has been on Xarelto for factor V. Leiden mutation. She has no recent blood clots. She has no bleeding events or hematuria. Mar,Elevated blood pressure (ICD-10 - R03.0)Blood pressure quite variable however today is within normal range. She monitor home blood pressure and it is mostly controlled. She has edema mainly related to varicose veins. We will continue low-salt diet and will start SAURABH inhibitors if systolic blood pressure persistently more than 40s. She has no proteinuria. 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 She completed monitoring LFTs monthly for total 18 months and now being monitoring every 3-month started 2021 per manufacture recommendation. She was informed that they may need INSURANCE FOLLOW UP REPRESENTATIVE in near future. Will refer to transplant evaluation once GFR < 20 ml/min. She does not have a donor December,KD (chronic kidney disease) stage 4, GFR 15-29 ml/min (ICD-10 - N18.4)Renal function has been quite variable since she was started on tolvaptan. Currently creatinine 2.1mg/dL, it has been variable between 1.6 to [...] has normal calcium, phosphorus and intact PTH. December,Factor V Leiden (ICD-10 - D68.51)Patient has been on Xarelto for factor V. Leiden mutation. She has no recent blood clots. She has no bleeding events or hematuria. December,Elevated blood pressure (ICD-10 - R03.0)Blood pressure has been slightly elevated in the [...] more than 140s. She has no proteinuria. [facility] Other 02-09-2023 Evaluation note* Encounter Date Diagnosis Assessment Notes Treatment Notes Treatment Clinical Notes Sep, Polycystic dysplastic kidney (IC D-10 - Q61.3) She was started Jynarque 45&30 [...] She was informed that they may need INSURANCE FOLLOW UP REPRESENTATIVE in near future. Will refer to transplant evaluation once GFR < 20 ml/min. She does not have a donor Sep,KD (chronic kidney disease) stage 4, GFR 15-29 ml/min (ICD-10 - N18.4)Renal function has been quite variable since she [...] has normal calcium, phosphorus and intact PTH. Sep,Factor V Leiden (ICD-10 - D68.51)Patient has been on Xarelto for factor V. Leiden mutation. She has no recent blood clots. She has no bleeding events or hematuria. Sep,Elevated blood pressure (ICD-10 - R03.0)Blood pressure is elevated in my office 140 [...] to check blood pressure at my office. [facility] Other 11-17-2022 Evaluation note* Encounter Date Diagnosis Assessment Notes Treatment Notes Treatment Clinical Notes Jun, Polycystic dysplastic kidney (IC D-10 - Q61.3) She was started Jynarque 45&30 [...] She was informed that they may need INSURANCE FOLLOW UP REPRESENTATIVE in near future. Will refer to transplant evaluation once GFR < 20 ml/min. She does not have a donor Jun,KD (chronic kidney disease) stage 4, GFR 15-29 ml/min (ICD-10 - N18.4)Renal function has been quite variable since she [...] has normal calcium, phosphorus and intact PTH. Jun,Factor V Leiden (ICD-10 - D68.51)Patient has been on Xarelto for factor V. Leiden mutation. She has no recent blood clots. She has no bleeding events or hematuria. [facility] Other 08-04-2022 Evaluation note* Encounter Date Diagnosis Assessment Notes Treatment Notes Treatment Clinical Notes Mar, Polycystic dysplastic kidney (IC D-10 - Q61.3) She was started Jynarque 45&30 [...] to drink enough with her work. Patient hasa very large cyst on the CT scan [...] She was informed that they may need INSURANCE FOLLOW UP REPRESENTATIVE in near future. Will refer to transplant evaluation once GFR < 20 ml/min. She does not have a donor Mar,KD (chronic kidney disease) stage 4, GFR 15-29 ml/min (ICD-10 - N18.4)Renal function has been quite variable since she [...] has normal calcium, phosphorus and intact PTH. Mar,Factor V Leiden (ICD-10 - D68.51)Patient has been on Xarelto for factor V. Leiden mutation. She has no recent blood clots. She has no bleeding events or hematuria. [facility] Other 05-27-2022 Evaluation note* Encounter Date Diagnosis Assessment Notes Treatment Notes Treatment Clinical Notes December, Polycystic dysplastic kidney (IC D-10 - Q61.3) December,KD (chronic kidney disease) stage 2, GFR 60-89 ml/min (ICD-10 - N18.2) December,Factor V Leiden (ICD-10 - D68.51) [facility] Other 02-09-2021 Evaluation note* Encounter Date Diagnosis Assessment Notes Treatment Notes Treatment Clinical Notes Sep, Polycystic dysplastic kidney (IC D-10 - Q61.3) [facility] Other evaluation noteNort [place] Other evaluation noteNo InformationNost. 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) acuteCKD stage G4/A3, GFR 15-29 and albumin creatinine ratio >300 mg/gacute Factor V [id number] kidney diseasenoneactive ADPKD (autosomal dominant polycystic kidney disease)acuteCKD (chronic kidney disease) stage 4, GFR 15-29 ml/minacuteCKD stage G4/A3, GFR 15-29 and albumin creatinine ratio >300 mg/gacuteFactor V BuzkjpdmbaoKJN-[id number] [facility]cystic dys[facility]Mer[facility] Work Phone: Evaluation note* Diagnosis Onset Date Resolution Status Admit Date ADPKD (autosomal dominant polycystic 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) acuteJuly 10, 2024 3:50pmCKD (chronic kidney disease) stage 4, GFR 15-29 ml/minacuteNov2023 3:50pmFactor V LeidenacuteNov2023 3:50pmHypertensive chronic kidney disease with stage 1 through stage 4 chronic kiacuteJuly 10, 2024 3:50pm [facility] Work Phone: Evaluation note* Diagnosis Onset Date Resolution Status Admit Date ADPKD (autosomal dominant polycystic 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) acuteMa2024 4:03pmCKD (chronic kidney disease) stage 4, GFR 15-29 ml/min acuteMay 2024 4:03pmFactor V LeidenacuteMay 2024 4:03pmHypertensive chronic kidney disease with stage 1 through stage 4 chronic kiacuteMay 2024 4:03pm [facility] Work Phone: Evaluation note* Diagnosis Pelvic pain in female Unspecified symptom associated with female genital organs Uterine leiomyoma, unspecified location documented in this encounter [facility]History general Narrative - ReportedNoWell[facility] Other History general Narrative - Reported* Type Description Date Medical History PCOS Medical Historyprevious blood clot in leg X 2Medical HistoryCAPILLARY HEMANGIOMA Medical HistoryFACTOR V LEIDEN MUTATIONSurgical HistoryWISDOM TEETH X4 Hospitalization HistoryCHILD X 2Hospitalization HistoryBLOOD CLOT [facility] Other History general Narrative - Reported* Type Description Date Medical History PCOS Medical Historyprevious blood clot in leg X 2Medical HistoryCAPILLARY HEMANGIOMA Medical HistoryFACTOR V LEIDEN MUTATIONSurgical HistoryWISDOM TEETH [id number] HistoryEVLT ON RIGHT LEGHospitalization HistoryCHILD X 2Hospitalization HistoryBLOOD [employer] Other Reason for referral (narrative)No reason for referral information availableBucyrus Community Hospital Work Phone: Summary Purpose Family History No Family History Records Found Relationship Condition Age at Onset Recorded Date/T nilda brother Polycystic kidney disease Unknown fatherPolycystic kidney diseaseUnknown Advance Directives No Advanced Directives Records Found Advance Directive Response Recorded Date/ Time Advance Directives No July 5:07pm Advance Directive Response Recorded Date/ Time Advance Directives No July 6:07pm Chief Complaint and Reason for Visit Chief Complaint renal 3 month f/u Reason for Visit ADPKD (autosomal dom inant polycystic kidney disease) CKD stage G4/A3, GFR 15-29 and albumin creatinine ratio >300 mg/g Factor V Leiden [id number] Chief Complaint RENAL 3 MONTH F/U Reason for Visit ADPKD (autosomal dom inant polycystic kidney disease) CKD stage G4/A3, GFR 15-29 and albumin creatinine ratio >300 mg/g Factor V Leiden [id number] Chief Complaint RENAL 3 MONTH F/U RENAL 3 MONTH F/UReason for VisitADPKD (autosomal dominant polycystic kidney disease) CKD stage G4/A3, GFR 15-29 and albumin creatinine ratio >300 mg/g Factor V Leiden [id number] Polycystic kidney disease ADPKD (autosomal dominant polycystic kidney disease) CKD (chronic kidney disease) stage 4, GFR 15-29 ml/min CKD stage G4/A3, GFR 15-29 and albumin creatinine ratio >300 mg/g Factor V Leiden [id number] Polycystic dysplastic kidney Chief Complaint Admit Date [...] section and content) DATE CREATED AUTHOR 09/06/2019 [facility] DATE CREATED AUTHOR AUTHOR'S ORGANIZ ATION 12/17/2022 [facility] DATE CREATED AUTHOR AUTHOR'S ORGANIZ ATION 06/12/2025 [facility] EPIC REASON FOR VISIT (unrecogniz ed section and content) ReasonCommentsDiscuss Pelvic Pain Care Teams (unrecognized sec tion and content) Team Status: Active Member Role Status Sheridan Ortiz MD Primary Care Provider Active Team Status: Inactive Member Role Status Sheridan Ortiz MD Primary Care Provider Active Start: October 11, 2023 End: October 11, 2023SekouAshwini Quintana ProviderActiveStart: October 11, 2023 End: October 11, 2023 Team Status: Active Member Role Status Sheridan Ortiz MD Primary Care Provider Active Start: October 11, 2023 SekouAshwini Quintana ProviderActiveStart: October 11, 2023 Team Status: Inactive Member Role Status Sheridan Ortiz MD Primary Care Provider Active Start: January 10, 2024 End: January 10, 2024SekouAshwini Quintana ProviderActiveStart: January 10, 2024 End: January 10, 2024 Team Status: Active Member Role Status Sheridan Ortiz MD Primary Care Provider Active Start: March 20, 2024 SekouAshwini Quintana ProviderActiveStart: March 20, 2024 Team Status: Inactive Member Role Status Sheridan Ortiz MD Primary Care Provider Active Start: March 27, 2024 End: March 27, 2024SekouAshwini Quintana ProviderActiveStart: March 27, 2024 End: March 27, 2024 Team Status: Inactive Member Role Status Sheridan Ortiz MD Primary Care Provider Active Start: July 10, 2024 End: July 10, 2024SekouAshwini Quintana ProviderActiveStart: July 10, 2024 End: July 10, 2024 Team Status: Inactive Member Role Status Sheridan Ortiz MD Primary Care Provider Active Start: October 02, 2024 End: October 02, 2024SekouAshwini Quintana ProviderActiveStart: October 02, 2024 End: October 02, 2024 Team Status: Inactive Member Role Status Sheridan Ortiz MD Primary Care Provider Active Start: January 15, 2025 End: January 15, 2025SekouAshwini Quintana ProviderActiveStart: January 15, 2025 End: January 15, 2025 Team Status: Inactive Member Role Status Dates Maren Ortiz MD Primary Care Provider Active Start: April 09, 2025 End: April 09, 2025Essam Ashwini Becerra ProviderActiveStart: April 09, 2025 End: April 09, 2025Team MemberRelationshipSpecialtyStart DateEnd Date Maren Ortiz MD [address] [place] [address] PCP - [facility]05/05/25Team MemberRelationshipSpecialtyStart DateEnd Date Maren Ortiz MD [address] [place] [id number] PCP - [facility]05/05/25 Goals (unrecognized section and content) Goals may [...] BE BASED ON THE PRIMARY CLINICAL RECORDS. [facility] [employer] [facility]. provides no warranty or guarantee of the accuracy or completeness of information in this document.
--- OUTSIDE RECORDS SUMMARY | 2025-06-19 07:21 | XMS_ITS | Clinical Summary ---
Author Organization [facility] Address [address] [facility] [place] [address] Care Team Providers Care Outside Dealer Sales Representative Name Role Phone Maulik James MD Primary Care Provider [phone] Allergies Active AllergyReactionsCriticalityNoted DateCommentsSulfa AntibioticsHives,Rash Low04/09/2025 Other Reaction(s): rash Sulfamethoxazole-TrimethoprimHives,UbkmMdy9809/04/2019 Medications MedicationSigDispense QuantityRefillsLast FilledStart DateEnd DateStatus Xarelto 20 MG tablet TAKE 1 TABLET BY MOUTH EVERY DAY; Duration: 90Active pantoprazole (ProtoNix) 40 MG EC tablet TAKE 1 TABLET BY MOUTH EVERY DAY; Duration: 90Active cetirizine (ZyrTEC) 10 MG chewable tablet 1 (one) time each day at the same timeActive Tolvaptan (Jynarque) 90 & 30 MG tablet therapy pack as directed OrallyActive Encounters DateTypeDepartmentCare RvfiCpmjkilxzxl04/18/2025Telephone [facility] [address] [address] [place] [address] Tin Garza DO 05/05/2025 1:40 PM EDTOffice Visit [facility] [address] [place] [address] Tin Garza DO Pelvic pain in female; Uterine leiomyoma, unspecified qfycqlse57/16/2025amboo flowsheet [facility] [address] [place] [address] Tin Garza DO 5Abstract [facility] [address] [facility] [place] [address] Tin Garza DO from Last 3 Months Social History Tobacco UseTypesPacks/DayYears UsedDateSmoking Tobacco: Never Assessed CommentsNoSex and Gender InformationValueDate RecordedSex Assigned at BirthNot on fileLegal AxvNsmjys97/15/2023 11:47 PM EDTGender IdentityNot on fileSexual OrientationNot on file Last Filed Vital Signs Vital SignReadingTime TakenCommentsBlood Ivexxrbh961/7806/10/2025 3:56 PM EDT Pulse--Temperature--Respiratory Rate--Oxygen Saturation--Inhaled Oxygen Concentration--Blbxeu10 kg (172 lb)06/10/2025 3:56 PM QPNFjvkef349 cm (5' 3 ) 06/10/2025 3:56 PM EDTBody Mass Index30.4706/10/2025 3:56 PM EDT Plan of Treatment DateTypeDepartmentCare Team (Latest Contact Info)Oypjhwwqcvk27/04/2025 1:30 PM ESTProcedure Visit [facility] O[facility] [address] [place] [address] [place] [phone] Tin Garza DO [address] [facility] [address] [facility] [place], [place] [phone] 07/23/2025 8:00 AM ESTAncillary Procedure [facility] [address] [place] [address] [place] [phone] Health MaintenanceDue DateLast DoneCommentsMMR Vaccines (1 of 1 - Standard series)1982DTaP/Tdap/Td Vaccines (1 - Tdap)1988Varicella Vaccines (1 of 2 - 13+ 2-dose series)1994Hepatitis B Vaccines (1 of 3 - 19+ 3-dose series)2000Pap Smear2002HPV Vaccines (1 - 3-dose SCDM series) 2008Cervical Cancer Bxnqsqzos98/10/2012HPV/Lyujlr5411/28/2011Mammogram 2COVID-19 Vaccine ( season), 05/04/2021 Influenza Vaccine (#1)5109/08/2016, 06/29/2016HIB VaccinesAged OutNo longer eligible based on patient's age to complete this topicHepatitis A VaccinesAged OutNo longer eligible based on patient's age to complete this topic IPV VaccinesAged OutNo longer eligible based on patient's age to complete this topicMeningococcal B VaccineAged OutNo longer eligible based on patient's age to complete this topicMeningococcal VaccineAged OutNo longer eligible based on patient's age to complete this topicPneumococcal Vaccine: Pediatrics (0 to 5 Years) and At-Risk Patients (6 to 64 Years)Aged OutNo longer eligible based on patient's age to complete this topicRotavirus VaccinesAged OutNo longer eligible based on patient's age to complete this topic Procedures Procedure NamePriorityDate/TimeAssociated DiagnosisCommentsPOCT , URINE Ogvreag4606/10/2025 4:02 PM EDT Pelvic pain Encounter for biopsy from Last 3 Months Results * POCT , urine manually resulted (06/10/2025 4:02 PM EDT)ComponentValue Ref RangeTest MethodAnalysis TimePerformed AtPathologist SignaturePreg Test, UrNegativeNegativeSpecimen (Source)Anatomical Location / LateralityCollection Method / VolumeCollection TimeReceived CgnwAvfvs65/22/2025 4:02 PM EDT Narrative Authorizing ProviderResult TypeResult StatusCorey Greg DOPOINT OF CARE TEST ENTER/EDIT ORDERABLESFinal Result from Last 3 Months Insurance Care Teams Team MemberRelationshipSpecialtyStart DateEnd Date Maulik James MD [address] [place] [address] PCP - GeneralFamily Medicine05/05/25
--- OUTSIDE RECORDS SUMMARY | 2025-06-19 07:21 | XMS_ITS | Patient Health Record ---
Author Organization [facility] [place] Address [address] [place] [address] Care Team Providers Care Security Systems Specialist Name Role Phone Jovon Ortiz Primary Care Provider [phone] Allergies Allergen (clinical drug ingredient) Drug/Non Drug Allergy documented on EMR Reaction Allergy Type Onset Date Status Substance with sulfonamide s tructure and antibacterial mechanism of action (substance) Sulfa Antibiotics hives Drug Allergy Active Results Component Value Reference Range Notes PTH, Intact Reviewed date:04/05/2025 01:20:20 PM Interpretation: Performing Lab: Notes/Report: [facility] , PTH, Intact 112 15-65 pg/mL Kitchen Steward: Zen Perez PhD, Phone: [phone] [address] [place], [place] [phone] Performed at: CB - [facility] [place] Performing Lab: see note LC - [facility] LBUS pelvis w/ transvaginal Reviewed date:04/16/2025 12:41:12 PM Interpretation: Performing Lab: Notes/Report: Source Facility: [place] [address] [place] [address] Ultrasound Report Signed Patient: BRYON BROCK MR#: [id number] : 1980 Acct:[id number] Age/Sex: 44 / F ADM Date: 04/16/25 Loc: US Attending Dr: Maren Ortiz M.D. Ordering Physician: Maren Ortiz M.D. Date of Service: 04/16/25 Procedure(s): US pelvis w/ transvaginal Accession Number(s): [id number] cc: Maren Ortiz M.D. [place] [id number] Patient Name: BRYON BROCK MRN: [id number] date: 1980 Sex: F Assigned Patient Location: US Current Patient Location: US Accession/Order Number: [id number] Exam Date: 04/16/2025 08:25 Report Date: 04/16/2025 10:40 At the request of: MAREN ORTIZ MD Procedure: US pelvis w/ transvaginal ULTRASOUND PELVIS WITH TRANSVAGINAL CLINICAL DATA: Left lower quadrant pain COMPARISON: None Real-time ultrasound evaluation the pelvis was performed utilizing both a transabdominal and transvaginal approach. TRANSABDOMINAL: Estimated uterine size is approximately 10.8 x 4.1 x 6.9 cm. The myometrium is mildly heterogeneous. There is also focal hypoechoic mass within the uterus on the left measuring 5.4 x 5.1 x 5.7 cm suggesting a fibroid. The endometrial lining is just over a centimeter in thickness. The right ovary is not well seen though the left is identified. It measures 3.3 x 2.1 x 2.8 cm and contains a cyst measuring just over 2 cm in size. There is blood flow with resistive index of 0.59. TRANSVAGINAL: Transvaginal scans were performed to better evaluate the uterus and adnexa. By this approach, the endometrial lining is estimated at 12 - 13 mm. It contains tiny cystic areas measuring up to 4 mm. A left-sided uterine fibroid is again seen measuring up to 5.6 cm in size. The right ovary is identified measuring 3.5 x 2.0 x 2.2 cm. There are no ovarian cysts. There is documentation of ovarian blood flow with resistive index of 0.49. The left ovary is not well seen transvaginally. There is no free pelvic fluid. US/US pelvis w/ transvaginal IMPRESSION: FIBROID UTERUS. 2 CM RIGHT OVARIAN CYST. Impression dictated by: Bryon Frausto M.D. 04/16/2025 10:40 AM Dictation Location: [place] [address] Electronically authenticated by: [id number] Y Date: 04/16/2025 10:40 Dictated By: Bryon Frausto M.D. Signed By: 04/16/25 1042 DD/ 1040 TD/TT: Senior Internal Auditor:CBC no Diff (Hemogram) Reviewed date:04/04/2025 04:49:24 PM Interpretation: Performing Lab: Notes/Report: [facility] ,White Blood Count13.64.0-11.0 10 3/uLRed Blood Count4.584.20-5.40 10 6/uL Kwuysnopir15.412.0-16.0 g/hFZdxlgmfwfl58.236.0-48.0 %Mean Corpuscular Aorjzy51.0 81.0-99.0 fLMean Corpuscular Mfnvnituqu60.326.7-34.0 pgMean Corpuscular HGB Conc 32.529.9-35.2 g/dLRed Cell Distribution Width13.211.0-15.0 %Platelet Kgzys574 150-450 10 3/uLMean Platelet Uhasjy92.19.5-13.5 fLPerforming Lab:see noteML - [facility] LBPROF 14(COMP METB) Reviewed date:04/04/2025 04:49:24 PM Interpretation: Performing Lab: Notes/Report: [facility] ,Hctwjo518340-249 mmol/LPotassium4.63.5-5.1 mmol/TGbgvqvgc58130-631 mmol/LCarbon Owedpoh54.021.0-32.0 mmol/LAnion Gap15.4Khhsrfy83095-158 mg/dLBlood Urea Eaxnrair59.07.0-18.0 mg/dLCreatinine2.660.55-1.02 mg/dLEstimated GFR ( Augjizy80>=60 mL/min/1.73m 2Estimated GFR (Non- Ame20>=60 mL/min/1.73m 2 BUN Creatinine Ratio12.3Nqpcmsu3.08.5-10.1 mg/dLBilirubin Total0.80.2-1.0 mg/dL Aspartate Amino Phyxixxhidk8259-54 U/LAlanine Mgzeubkbhfgqbmlh2384-35 U/L Alkaline Ewuvcxwsbtb3304-527 U/LTotal Protein7.66.4-8.2 g/dLAlbumin Level3.73.4- 5.0 g/dLGlobulin3.9Albumin Globulin Ratio0.9Performing Lab:see note - [facility] LBPHOSPHORUS Reviewed date:04/04/2025 04:49:24 PM Interpretation: Performing Lab: Notes/Report: [facility] ,Phosphorus3.52.6-4.7 mg/dLPerforming Lab:see note - [facility] LB PTH, Intact Reviewed date:01/07/2025 05:49:00 PM Interpretation: Performing Lab: Notes/Report: [facility] ,PTH, Lalzrf9389-72 pg/mL Kitchen Steward: Zen Perez PhD, Phone: [phone] [address] [place], [place] [phone] Performed at: - [facility] [place] Performing Lab:see note - [facility] LBCBC no Diff (Hemogram) Reviewed date:01/06/2025 08:17:47 PM Interpretation: Performing Lab: Notes/Report: [facility] ,White Blood Count10.74.0-11.0 10 3/uLRed Blood Count4.494.20-5.40 10 6/uL Ccfxtgrzcy45.212.0-16.0 g/oFWszqmtcthp38.336.0-48.0 %Mean Corpuscular Rarckk48.8 81.0-99.0 fLMean Corpuscular Kxbpclwoyw31.426.7-34.0 pgMean Corpuscular HGB Conc 32.829.9-35.2 g/dLRed Cell Distribution Width13.511.0-15.0 %Platelet Onjtu871 150-450 10 3/uLMean Platelet Hgatfa62.79.5-13.5 fLPerforming Lab:see note - [facility] LBPROF 14(COMP METB) Reviewed date:01/06/2025 08:17:47 PM Interpretation: Performing Lab: Notes/Report: [facility] ,Efkyct487637-233 mmol/LPotassium3.73.5-5.1 mmol/VLpxrybpv99818-204 mmol/LCarbon Wwnummc94.221.0-32.0 mmol/LAnion Gap15.8Clbcqga9014-864 mg/dLBlood Urea Nitrogen 32.07.0-18.0 mg/dLCreatinine2.220.55-1.02 mg/dLEstimated GFR ( Cpgbdrh57 >=60 mL/min/1.73m 2Estimated GFR (Non- Ame24>=60 mL/min/1.73m 2BUN Creatinine Ratio14.2Mfoiqfy3.18.5-10.1 mg/dLBilirubin Total0.30.2-1.0 mg/dL Aspartate Amino Pskzagnfglh0494-83 U/LAlanine Xrputqlteqwepyyk5348-83 U/L Alkaline Gqbtcjddorl8223-200 U/LTotal Protein7.36.4-8.2 g/dLAlbumin Level4.03.4- 5.0 g/dLGlobulin3.3Albumin Globulin Ratio1.2Performing Lab:see noteML - [facility] LBPHOSPHORUS Reviewed date:01/06/2025 08:17:47 PM Interpretation: Performing Lab: Notes/Report: [facility] ,Phosphorus4.92.6-4.7 mg/dLPerforming Lab:see noteML - [facility] LB PROF CHEM 8 (BAS METB) Reviewed date:10/13/2024 08:13:35 PM Interpretation: Performing Lab: Notes/Report: [facility] ,Ikthbh438028-582 mmol/LPotassium4.03.5-5.1 mmol/GZbpzkjfo26548-305 mmol/LCarbon Ukokfbe93.521.0-32.0 mmol/LAnion Gap12.7Rmnvion59296-127 mg/dLBlood Urea Vgxccpfu72.07.0-18.0 mg/dLCreatinine2.520.55-1.02 mg/dLEstimated GFR ( Oemjcan25>=60 mL/min/1.73m 2Estimated GFR (Non- Ame21>=60 mL/min/1.73m 2 BUN Creatinine Ratio11.9Qpwxpyi5.18.5-10.1 mg/dLPerforming Lab:see noteML - [facility] LBPTH, Intact Reviewed date:09/25/2024 12:50:08 PM Interpretation: Performing Lab: Notes/Report: [facility] ,PTH, Criohk09550-63 pg/mL Kitchen Steward: Zen Perez PhD, Phone: [phone] Performed at: [address] [id number] Performing Lab:see noteLC - [facility] LBCBC no Diff (Hemogram) Reviewed date:09/24/2024 05:05:08 PM Interpretation: Performing Lab: Notes/Report: [facility] ,White Blood Count8.04.0-11.0 10 3/uLRed Blood Count4.644.20-5.40 10 6/uL Tawwptgdgl96.412.0-16.0 g/sCEculmqvdox79.836.0-48.0 %Mean Corpuscular Msafmy41.1 81.0-99.0 fLMean Corpuscular Qdtvihzftj94.926.7-34.0 pgMean Corpuscular HGB Conc 32.129.9-35.2 g/dLRed Cell Distribution Width13.211.0-15.0 %Platelet Mktpe685 150-450 10 3/uLMean Platelet Ewciup39.19.5-13.5 fLPerforming Lab:see noteML - [facility] LBPROF 14(COMP METB) Reviewed date:09/24/2024 05:05:08 PM Interpretation: Performing Lab: Notes/Report: [facility] ,Wuigqo996600-648 mmol/LPotassium3.73.5-5.1 mmol/KCvypyuch86368-283 mmol/LCarbon Ixshutv94.721.0-32.0 mmol/LAnion Gap15.5Ootqmfw2527-813 mg/dLBlood Urea Nitrogen 30.07.0-18.0 mg/dLCreatinine3.030.55-1.02 mg/dLEstimated GFR ( Vajvcbg06 >=60 mL/min/1.73m 2Estimated GFR (Non- Ame17>=60 mL/min/1.73m 2BUN Creatinine Ratio9.9Npcgwkw8.88.5-10.1 mg/dLBilirubin Total0.30.2-1.0 mg/dL Aspartate Amino Gflhnjiirli2264-41 U/LAlanine Gkpszafcfmjbrraz4580-36 U/L Alkaline Rlkgrgwawih2907-222 U/LTotal Protein7.76.4-8.2 g/dLAlbumin Level4.03.4- 5.0 g/dLGlobulin3.7Albumin Globulin Ratio1.1Performing Lab:see noteML - [facility] LBPHOSPHORUS Reviewed date:09/24/2024 05:05:08 PM Interpretation: Performing Lab: Notes/Report: [facility] ,Phosphorus3.82.6-4.7 mg/dLPerforming Lab:see noteML - [facility] LB PTH, Intact Reviewed date:07/06/2024 01:52:52 PM Interpretation: Performing Lab: Notes/Report: [facility] ,PTH, Wzjiwq0004-00 pg/mL Performed at: [facility] Kitchen Steward: Zen Perez PhD, Phone: [phone] [address] [place], [place] [phone] Performing Lab:see note - [facility] LBPROF 14(COMP METB) Reviewed date:07/04/2024 06:30:20 AM Interpretation: Performing Lab: Notes/Report: [facility] ,Ihzrda777731-102 mmol/LPotassium4.53.5-5.1 mmol/WEopmuauo64354-891 mmol/LCarbon Vnpfdqk14.421.0-32.0 mmol/LAnion Gap17.8Rxymrlr9910-445 mg/dLBlood Urea Nitrogen 38.07.0-18.0 mg/dLCreatinine2.360.55-1.02 mg/dLEstimated GFR ( Fyjfmdz26 >=60 mL/min/1.73m 2Estimated GFR (Non- Ame23>=60 mL/min/1.73m 2BUN Creatinine Ratio16.8Xhblbfh6.08.5-10.1 mg/dLBilirubin Total0.30.2-1.0 mg/dL Aspartate Amino Cexveuaypjf9702-55 U/LAlanine Wtydovxmsnkystdk9625-50 U/L Alkaline Ryjeczezeml3532-267 U/LTotal Protein7.36.4-8.2 g/dLAlbumin Level4.03.4- 5.0 g/dLGlobulin3.3Albumin Globulin Ratio1.2Performing Lab:see noteML - [facility] LBPHOSPHORUS Reviewed date:07/04/2024 06:30:20 AM Interpretation: Performing Lab: Notes/Report: [facility] ,Phosphorus4.62.6-4.7 mg/dLPerforming Lab:see noteML - [facility] LB Reason For Referral No Information Medications Medication SIG (Take, Route, Frequency, Duration) Notes Start Date End Date Status metroNIDAZOLE 500 MG 1 tablet Orally Three times a day; Duration: 10 days 5ActiveJynarque 90 & 30 MGas directed OrallyActivePantoprazole Sodium 40 MGTAKE 1 TABLET BY MOUTH EVERY DAY; Duration: 90ActiveCefdinir 300 MG2 capsule Orally once a day; Duration: 10 days4ActiveCiprofloxacin HCl 500 MG1 tablet Orally every 12 hrs; Duration: 10 days5ActiveXarelto 20 MGTAKE 1 TABLET BY MOUTH EVERY DAY; Duration: 90ActiveZyrTEC 10 MG1 tablet Orally Once a dayActive Social History Tobacco Use: Social History Observation Description Date Details (start date - stop date) Never Smoker NA - NA Tobacco Use/Smoking Question Answer Notes Patient is a nonsmoker Alcohol Screen (Audit-C) Question Answer Notes Did you have a drink containing alcohol in the p ast year? Yes How often did you have 6 or more drinks on one occasion in the past year?Monthly or less (1 point)How many drinks did you have on a typical day when you were drinking in the past year?1 or 2 drinks (0 point)How often did you have a drink containing alcohol in the past year?Weekly (3 points)Yfkbat2Zhxpgofpmpbmoq PositiveAUDIT-C (Standard) Question Answer Notes Did you have a drink containing alcohol in the p ast year? Yes How often did you have a drink containing alcohol in the past year?Monthly or less (1 point)How many drinks did you have on a typical day when you were drinking in the past year?1 or 2 drinks (0 point)How often did you have six or more drinks on one occasion in the past year?Never (0 point)Points1 InterpretationNegative Problems Problem Type SNOMED Code ICD Code Onset Dates Problem Status W/U Status Risk Notes Problem Chronic peripheral v enous hypertension (disorder) (788033949) Chronic venous hypertension (idiopathic) without complications of unspecified lower extremity (I87.309) ActiveconfirmedProblemFactor V Leiden mutation (575499676)Factor V Leiden mutation (D68.51)ActiveconfirmedProblemPain in left leg (598432975)Left leg pain (M79.605)ActiveconfirmedProblemCellulitis (872172261)Cellulitis (L03.90)Active confirmedProblemPolycystic kidney disease (00649056)Polycystic kidney disease (Q61.3)ActiveconfirmedProblemAcute urinary tract infection (305033380)Acute UTI (N39.0)ActiveconfirmedProblemLeft lower quadrant pain (993829938)Left lower quadrant abdominal pain (R10.32)Activeconfirmed Vital Signs Blood pressure diastolic 80 mm Hg 04/06/2025 Fsikpc24 in04/06/2025lood pressure cvhbemaa934 mm Hg04/06/20259015Pmepeo720.4 lbs 04/06/2025BMI29.44 kg/m204/06/2025 Encounters Encounter Location Date Provider Diagnosis [place] [address] [place] [address] 04/04/2025 Jovon Ortiz [facility] [place] [address] [facility] [place] [address]/16/2024oug HoyAcute UTI N39.0[facility] [address] [place] [address]/18/2025Doug HoyLeft lower quadrant abdominal pain R10.32 Assessments Encounter Date Diagnosis (ICD Code) Assessment Notes Treatment Notes Treatment Clinical Notes Section Notes 08/04/2024 Acute UTI (ICD-10 - N39.0) coming abck in 2 weeks follow up in urine04/06/2025Left lower quadrant abdominal pain (ICD-10 - R10.32) [...] Coverage Start Date Coverage End Date [employer] [place] [id number] [place] [address] [id number] Alfa Brock Spouse - patient is the spouse of the insured Medications Administered Medication Instructions Date of Administration Dosage Notes Ceftriaxone 1 gram g1 gram Medical (General) History Medical History History ICD Code Factor V Leiden mutation D68.51 Near syncope R55 Polycystic kidney disease Q61.3 DVT (deep venous thrombosis) I82.409 Surgical History Surgery Date(Month/Year) VC INJ foam sclerosant [employer] 07/12
[2025-06-19 08:15] LABS: Alanine Aminotransferase 13 U/L (14-59); Albumin Globulin Ratio 1.4; Albumin Level 4.2 g/dL (3.4-5.0); Alkaline Phosphatase 28 U/L (46-116); Anion Gap 16.9; Aspartate Amino Transferase 13 U/L (15-37); Blood Urea Nitrogen 28.0 mg/dL (7.0-18.0); Calcium 9.1 mg/dL (8.5-10.1); Carbon Dioxide 23.1 mmol/L (21.0-32.0); Chloride 107 mmol/L (98-107); Estimated GFR (African America 24 (>=60 mL/min/1.73m^2); Estimated GFR (Non-African Ame 19 (>=60 mL/min/1.73m^2); Globulin 3.1 g/dL; Glucose 87 mg/dL (74-106); Potassium 5.0 mmol/L (3.5-5.1); Sodium 142 mmol/L (136-145); Total Protein 7.3 g/dL (6.4-8.2)
== END 2025-06-19 07:19 | disposition home or self-care (01) ==
LOC: LAB 07:18
PROVIDERS: PCP Family Medicine; Visit Provider Internal Medicine Nephrology
DX: Q61.2 Polycystic kidney, adult type (principal)
CPT/HCPCS: 36415; 80053

== ENCOUNTER 2025-06-23 13:01 | Outpatient (REF) | payer OTHER, SELFPAY ==
--- OUTSIDE RECORDS SUMMARY | 2025-07-07 13:06 | XMS_ITS | CCD ---
Author Organization [facility] CliniSyct Care Team Providers Care Salt Lifter Name Role Phone Maeve Becerra Unavailable DR MAEVE BECERRA Admitting Unavailable TIFFANIE, DR BEAL Consulting Unavailable DR MAREN GONZALEZ Primary Care Unavailable TIFFANIE, DR BEAL Attending Unavailable TIFFANIE, DR BEAL Consulting Unavailable TIFFANIE, DR BEAL Attending Unavailable TIFFANIE, DR BEAL Admitting Unavailable DR MAREN GONZALEZ Primary Care Unavailable TIFFANIE, DR BEAL Consulting Unavailable DR MAEVE BECERRA Attending Unavailable DR MAREN GONZALEZ Primary Care Unavailable TIFFANIE, DR BEAL Admitting Unavailable TIFFANIE, DR BEAL Consulting Unavailable TIFFANIE, DR BEAL Attending Unavailable DR MAREN GONZALEZ Primary Care Unavailable TIFFANIE, DR BEAL Admitting Unavailable TIFFANIE, DR BEAL Consulting Unavailable DR MAEVE BECERRA Attending Unavailable DR MAREN GONZALEZ Primary Care Unavailable TIFFANIE, DR BEAL Admitting Unavailable ANGEL ., DR ENGEL Consulting Unavailable DR MAREN GONZALEZ Attending Unavailable ANGEL Ramachandran, DR ENGEL Admitting Unavailable DR MAREN GONZALEZ Primary Care Unavailable DR MAREN GONZALEZ Consulting Unavailable DR MAREN GONZALEZ Attending Unavailable ANGEL ., DR ENGEL Admitting Unavailable DR MAREN GONZALEZ Primary Care Unavailable DR JONATHON HUBER Consulting Unavailable TIFFANIE, DR BEAL Consulting Unavailable DR MAEVE BECERRA Attending Unavailable DR MAREN GONZALEZ Primary Care Unavailable TIFFANIE, DR BEAL Admitting Unavailable TIFFANIE, DR BEAL Consulting Unavailable TIFFANIE, DR BEAL Attending Unavailable DR MAREN GONZALEZ Primary Care Unavailable DR MAEVE BECERRA Admitting Unavailable DR MAEVE BECERRA Admitting Unavailable DR MAEVE BECERRA Consulting Unavailable DR MAREN GONZALEZ Primary Care Unavailable TIFFANIE, DR BEAL Attending Unavailable Maren Ortiz MD Primary Care Provider [phone] Maeve Becerra MD Attending Provider [phone] Maren Ortiz MD Primary Care Provider [phone] Maren Ortiz MD Primary Care Provider [phone] Maren Ortiz MD Primary Care Provider [phone] Maeve Becerra MD Attending Provider Sandy Garza DO Attending Provider SANDY GARZA Attending Unavailable SANDY GARZA Attending Unavailable Sandy Garza Attending Unavailable Sandy Garza Admitting Unavailable Allergies Allergy ClassificationReported Allergen(s)Allergy TypeDate of OnsetReaction(s) Facility (19 sources)Sulfonamides (Antibiotic)Propensity to adverse reactionsL[facility] [employer] Other (3 sources)Sulfonamides (Antibiotic)Drug Pyqmxqz07-33-7953EpjmcSS[facility] (1 source)Sulfamethoxazole / TrimethoprimDrug Ggqmqcl02-46-8744NpcavSSM Health Care (1 source)Sulfonamides (Antibiotic)Drug allergy (disorder)11-26-0141CpfeljxzqUniversity [facility]als [facility] Repository Medications Current Medications MedicationDrug Class(es)DatesSig (Normalized)Sig (Original)cetirizine hydrochloride 10 mg oral tablet (20 sources)Histamine-1 Receptor AntagonistStart: 26-88-9261yxdx 1 tablet by mouth once dailycetirizine (ZyrTEC) 10 MG chewable tablet 1 (one) time each day at the same time Activetake 1 tablet by mouth once dailyZyrTEC Allergy 10 MG 1 tablet on the tongue and allow to dissolve Orally Once a day Activepantoprazole 40 mg delayed release oral tablet (18 sources)Proton Pump InhibitorStart: 10-11-2023 End: 46-63-9262bnhi 1 tablet by mouth once dailyStart: 10-11-2023 End: 90-69-4316Nnzfwlfwgbff Discontinued MG PO October 11, 2023 1:00am March 27, 2024 4:27pmrivaroxaban 20 mg oral tablet (20 sources)Factor Xa InhibitorStart: 78-30-4105zikw 1 tablet by mouth once daily at mealtimetolvaptan (20 sources)Vasopressin V2 Receptor AntagonistStart: 36-65-7445Lnmjpmfgm 60 & 30 MG tablet therapy pack 06/18/2025 ActiveStart: 01-15-2025 End: 30-84-3297Dxgix: 07-10-2024 End: 88-98-3376Lalnvwgml (Polycys Kidney Dis) (Jynarque) 45 mg (AM)/ 15 mg (PM) tablets, sequential Discontinued 0PO per package directions 56 3 September 29, 2024 3:53pm January 15, 2025 3:50pm PO PER PKG DIRStart: 06-04-2024 End: 21-31-8188ywqi 1 tablet by mouth every eight hours in the morningTolvaptan (Polycys Kidney Dis) (Jynarque) 90 mg (AM)/ 30 mg (PM) tablets, sequential Discontinued 0.ROUTE .COMPLEX June 04, 2024 3:44pm July 10, 2024 4:33pm Autosomal dominant polycystic kidney disease Polycystic kidney, adult type TAKE ONE 90MG TABLET BY MOUTH UPON AWAKING, AND ONE 30MG TABLET BY MOUTH 8 HOURS LATERStart: 06-04-2024 End: 58-53-6057eruc 1 tablet by mouth every eight hours in the morningTolvaptan (Polycys Kidney Dis) (Jynarque) 90 mg (AM)/ 30 mg (PM) tablets, sequential Discontinued 0.ROUTE .COMPLEX June 04, 2024 4:44pm July 10, 2024 5:33pm TAKE ONE 90MG TABLET BY MOUTH UPON AWAKING, AND ONE 30MG TABLET BY MOUTH 8 HOURS LATERStart: 06-04-2024 End: 68-86-1580susq 1 tablet by mouth every eight hours in the morningTolvaptan (Polycys Kidney Dis) (Jynarque) 90 mg (AM)/ 30 mg (PM) tablets, sequential Discontinued 0.ROUTE .COMPLEX June 04, 2024 3:44pm July 10, 2024 4:33pm TAKE ONE 90MG TABLET BY MOUTH UPON AWAKING, AND ONE 30MG TABLET BY MOUTH 8 HOURS LATERStart: 04-07-2024 End: 34-95-1661gsqp 1 tablet by mouth every eight hours in the morningTolvaptan (Polycys Kidney Dis) (Jynarque) 90 mg (AM)/ 30 mg (PM) tablets, sequential Discontinued 0.ROUTE .COMPLEX 56 April 07, 2024 10:41am June 04, 2024 3:45pm Autosomal dominant polycystic kidney disease Polycystic kidney, adult type TAKE ONE 90 MG TABLET BY MOUTH UPON WAKING, THEN TAKE ONE 30 MG TABLET BY MOUTH 8 HOURS LATER EVERY DAYStart: 04-07-2024 End: 38-34-5164lawr 1 tablet by mouth every eight hours in the morningTolvaptan (Polycys Kidney Dis) (Jynarque) 90 mg (AM)/ 30 mg (PM) tablets, sequential Discontinued 0.ROUTE .COMPLEX 56 April 07, 2024 11:41am June 04, 2024 4:45pm TAKE ONE 90 MG TABLET BY MOUTH UPON WAKING, THEN TAKE ONE 30 MG TABLET BY MOUTH 8 HOURS LATER EVERY DAYStart: 04-07-2024 End: 23-23-8693uzyz 1 tablet by mouth every eight hours in the morningTolvaptan (Polycys Kidney Dis) (Jynarque) 90 mg (AM)/ 30 mg (PM) tablets, sequential Discontinued 0.ROUTE .COMPLEX 56 April 07, 2024 10:41am June 04, 2024 3:45pm TAKE ONE 90 MG TABLET BY MOUTH UPON WAKING, THEN TAKE ONE 30 MG TABLET BY MOUTH 8 HOURS LATER EVERY DAYStart: 04-06-2024 End: 07-88-8419hbcc 1 tablet by mouth every eight hours in the morningTolvaptan (Polycys Kidney Dis) (Jynarque) 90 mg (AM)/ 30 mg (PM) tablets, sequential Discontinued 0.ROUTE .COMPLEX 56 April 06, 2024 8:31am April 07, 2024 10:41am Autosomal dominant polycystic kidney disease Polycystic kidney, adult type TAKE ONE 90 MG TABLET BY MOUTH UPON WAKING, THEN TAKE ONE 30 MG TABLET BY MOUTH 8 HOURS LATER EVERY DAYStart: 04-06-2024 End: 31-90-5690izra 1 tablet by mouth every eight hours in the morningTolvaptan (Polycys Kidney Dis) (Jynarque) 90 mg (AM)/ 30 mg (PM) tablets, sequential Discontinued 0.ROUTE .COMPLEX 56 April 06, 2024 9:31am April 07, 2024 11:41am TAKE ONE 90 MG TABLET BY MOUTH UPON WAKING, THEN TAKE ONE 30 MG TABLET BY MOUTH 8 HOURS LATER EVERY DAYStart: 04-06-2024 End: 41-37-2754htci 1 tablet by mouth every eight hours in the morningTolvaptan (Polycys Kidney Dis) (Jynarque) 90 mg (AM)/ 30 mg (PM) tablets, sequential Discontinued 0.ROUTE .COMPLEX 56 April 06, 2024 8:31am April 07, 2024 10:41am TAKE ONE 90 MG TABLET BY MOUTH UPON WAKING, THEN TAKE ONE 30 MG TABLET BY MOUTH 8 HOURS LATER EVERY DAYStart: 10-11-2023 End: 99-69-5400Pglrgjlox (Polycys Kidney Dis) (Jynarque) 90 mg (AM)/ 30 mg (PM) tablets, sequential Discontinued 0PO per package directions 56 90 December 23, 2023 10:04pm April 06, 2024 8:33am Autosomal dominantpolycystic kidney disease Polycystic kidney, adult type PO PER PKG DIRStart: 33-07-9912Nxyrujqq 90 & 30 MG TAKE ONE 90 MG TABLET BY MOUTH UPON WAKING AND TAKE 30 MG TABLET 8 HOURS LATER Orally bid for 14 days Mar, Not-TakingStart: 09-14-2021 End: 49-77-7984Hmvdwygw 90 & 30 MG 90 mg QAM [...] Medications MedicationDrug Class(es)DatesSig (Normalized)Sig (Original)Triamcinolone (17 sources)CorticosteroidStart: 67-85-3574TNJUCJW - 10 mg Mar, 40 mg Problems Active Problems Problem ClassificationProblemDateDocumented DateEpisodic/ChronicAbdominal pain (4 sources)Pain in female pelvis; Translations: [Pelvic and perineal pain] 00-43-5182ZiwbtcoeVcufcp neoplasm of uterus (3 sources)Uterine leiomyoma; Translations: [Leiomyoma of uterus, unspecified] 77-97-4379YgcxebqpDytismr kidney disease (20 sources)Chronic kidney disease stage 2; Translations: [Chronic kidney disease, stage 2 (mild)]Onset: 08-09-2021 Resolved: 63-49-2601TobrpyrTpsrbjm on above:Renal function has been quite variable [...] Translations: [Activated protein C resistance]Onset: 08-09-2021 Resolved: 97-90-1672BgoeypqDzspyuq on above:Patient has been on Xarelto for factor V. Leiden mutation. She has no recent blood clots. She has no bleeding events or hematuria.Contraceptive and procreative management (1 source)Sterilization requested; Translations: [Encounter for sterilization] 62-97-0421NcujjlzhRsnfduafutzli congenital anomalies (20 sources)Multiple congenital cysts of kidney; Translations: [Polycystic kidney, unspecified]Onset: 08-09-2021 Resolved: 29-07-9217XvhqtpxHdypxmt on above:She was started Jynarque 45 &30 [...] recommendation. She wasinformed that they may need WOUND CARE RN in near future. Will refer to transplant evaluation once GFR < 20 ml/min. She does not have a donor.Hypertension with complications and secondary hypertension (20 sources)Chronic kidney disease due to hypertension; Translations: [Hypertensive chronic kidney disease withstage 1 through stage 4 chronic kidney disease, or unspecified chronic kidney disease]83-62-6895SzswjjhFvdobfbtp disorders (1 source)Menorrhagia; Translations: [Excessive and frequent menstruation with regular cycle]57-24-1799YcyyaitDxpbm circulatory disease (4 sources)Elevated blood-pressure reading, without diagnosis of hypertension EpisodicOther screening for suspected conditions (not mental disorders or infectious disease) (4 sources)Encounter for screening mammogram for malignant neoplasm of breast; Translations: [ENC SCR MAMMO MALIG NEOPLASM BREAST]Onset: 43-11-5478Jzweitck Residual codes; unclassified (1 source)Family history of malignant neoplasm, unspecified; Translations: [FAM HX MALIGNANT NEOPLASM UNS]Onset: 32-23-9556Umwbwvpv Past or Other Problems Problem ClassificationProblemDateDocumented DateEpisodic/ChronicAcute and unspecified renal failure (2 sources)Acute kidney failure, unspecified; Translations: [ACUTE KIDNEY FAILURE UNSPECIFIED]Onset: 08-09-2021 Resolved: 25-22-3989GusrkgefEiufmoso; including migraine (1 source)HeadacheOnset: 08-09-2021 Resolved: 66-55-8109Wfnjnkzc Results Test NameValueInterpretationReference RangeFacilityEndometrial biopsyon 79-52-9774GeqalIsabel Kincaid LPN 06/23/2025 2:19 PM Endometrial biopsy [...] be scheduled for bilateral salpingectomy and endometrial ablationNOUniversity Health [facility] HealthcareHCG ( test) Ql (U)on 77-86-9319Gtzxxhqvfptafp and review of laboratory resultsNormalNOEllett Memorial HospitalPreg Test, UrNegative NegativeNOAscension Calumet HospitalPTH INTACTon 81-27-6367ZTK, Jambhw42 pg/mL Pdzncl12-45Uim [facility] HospitalComment on above:Performed By: #### LIPID, CMP, TSH, T7 #### [facility] [address] [address] [address] Jessica MosquedaHEMOGRAM AND PLATELon 70-66-7196Jxmdqiohgl (Bld) [Volume fraction]41.0 %Qxgmxt22.0-48.0The [facility] HospitalComment on above:Performed By: #### HH #### [facility] [address] [place] [address] Dr. Jessica MosquedaHemoglobin (Bld) [Mass/Vol]13.0 g/nJLjtyeh52.0-16.0The [facility] HospitalComment on above:Performed By: #### HH #### [facility] [address] [place] [address] Dr. Jessica RameshH (RBC) [Entitic mass]28.6 ypMgcevp72.7-34.0The [facility] HospitalComment on above:Performed By: #### HH #### [facility] [address] [place] [address] Dr. Jessica RameshHC (RBC) [Mass/Vol]31.7 g/hRUhrwop92.9-35.2The [facility] HospitalComment on above:Performed By: #### HH #### [facility] [address] [place] [address] Dr. Jessica RameshV (RBC) [Entitic vol]90.3 pIXofiez55.0-99.0The [facility] HospitalCommckenzie memorial hospital on above:Performed By: #### HH #### [facility] [address] [place] [address] Dr. Jessica MosquedaPLT133 103/ulCritically dlt527-166Mkg [facility] HospitalCommckenzie memorial hospital on above:Performed By: #### HH #### [facility] [address] [place] [address] Dr. Jessica MosquedaRBC4.54 106/ulNormal4.20-5.40The [facility] HospitalCommckenzie memorial hospital on above:Performed By: #### HH #### [facility] [address] [place] [address] Dr. Jessica MosquedaWBC9.0 103/ulNormal4.0-11.0The [facility] HospitalComment on above: Performed By: #### HH #### [facility] [address] [address] [address] Jessica LeonardUSon 96-40-9181Zdjmudpol [Mass/Vol]4.3 mg/dLNormal2.6-4.7 The [facility] HospitalComment on above:Performed By: #### PTHINT #### [facility] [address] [place] [address] Dr. Jessica MosquedaPROF 14(COMP METB)on 91-46-0276Vimdbde [Mass/Vol]3.8 g/dLNormal 3.4-5.0The [facility] HospitalComment on above:Performed By: #### PTHINT #### [facility] [address] [place] [address] Dr. Jessica MosquedaAlbumin/Globulin [Mass ratio]1.1 {ratio}NormalThe [facility] HospitalComment on above:Performed By: #### PTHINT #### [facility] [address] [place] [address] Dr. Jessica Mullins [Catalytic activity/Vol]36 U/LCritically mmi67-761Mlo [facility] HospitalComment on above:Performed By: #### PTHINT #### [facility] [address] [place] [address] Dr. Jessica Salinas [Catalytic activity/Vol]14 U/BKnjgrs34-32Fuu [facility] HospitalComment on above:Performed By: #### PTHINT #### [facility] [address] [address] [address] Jessica Ibanez gap [Moles/Vol]11.9 mmol/LNormalThe [facility] Comment on above:Performed By: #### PTHINT #### [facility] [address] [place] [address] Dr. Jessica Mckeon [Catalytic activity/Vol]13 U/LCritically oue05-32Wsy [facility] HospitalComment on above:Performed By: #### PTHINT #### [facility] [address] [place] [address] Dr. Jessica MosquedaBilirubin [Mass/Vol]0.3 mg/dLNormal0.2-1.0The [facility] Comment on above:Performed By: #### PTHINT #### [facility] [address] [address] [address] Jessica MosquedaCalcium [Mass/Vol]9.0 mg/dLNormal8.5-10.1The [facility] Comment on above:Performed By: #### PTHINT #### [facility] [address] [address] [address] Jessica MosquedaChloride [Moles/Vol]107 mmol/MZcfypt04-639Mmo [facility] Comment on above:Performed By: #### PTHINT #### [facility] [address] [address] [address] Jessica MosquedaCO2 [Moles/Vol]28.1 mmol/NUkpkdb50.0-32.0The [facility] Comment on above:Performed By: #### PTHINT #### [facility] [address] [address] [address] Jessica MosquedaCreatinine [Mass/Vol]2.10 mg/dLCritically high0.55-1.02The [facility] HospitalComment on above:Performed By: #### PTHINT #### [facility] [address] [address] [address] Jessica SalmonGFR-AF YDFYHSJI71 mL/min/1.22d3Uhezrdnqhs low>=60The [facility] HospitalComment on above:Performed By: #### PTHINT #### [facility] [address] [address] [address] Jessica SalmonGFR-NON AF HBECCYCY03 mL/min/1.24s5Ptetgfqrke low>=60The [facility] HospitalComment on above:Performed By: #### PTHINT #### [facility] [address] [address] [address] Jessica MosquedaGlobulin (S) [Mass/Vol]3.6 g/dLNormalThe [facility] HospitalComment on above:Performed By: #### PTHINT #### [facility] [address] [address] [address] Jessica MosquedaGlucose [Mass/Vol]82 mg/aTWyfjut79-348[facility] Comment on above:Performed By: #### PTHINT #### [facility] [address] [address] [address] Jessica MosquedaPotassium [Moles/Vol]4.0 mmol/LNormal3.5-5.1[facility] Comment on above:Performed By: #### PTHINT #### [facility] [address] [address] [address] Jessica MosquedaProtein [Mass/Vol]7.4 g/dLNormal6.4-8.2[facility] Comment on above:Performed By: #### PTHINT #### [facility] [address] [address] [address] Jessica MosquedaSodium [Moles/Vol]143 mmol/BVfhenv332-132VicAccess [facility] Comment on above:Performed By: #### PTHINT #### [facility] [address] [address] [address] Jessiac MosquedaUrea nitrogen [Mass/Vol]23.0 mg/dLCritically high7.0-18.0[facility] DaytonComment on above:Performed By: #### PTHINT #### [facility] [address] [place] [address] Dr. Jessica Hanson nitrogen/Creatinine [Mass ratio]11.0 mg/mgNormalThe [facility] HospitalComment on above:Performed By: #### PTHINT #### [facility] [address] [place] [address] Dr. Jessica MosquedaMG MAMM SCREEN 3D MATILDA CADon 64-61-4976JF MAMM SCREEN 3D MATILDA CAD Patient: ISABEL RIVERA Exam Date: 11/14/2022 : 1980 Gender:F Ordering : DR MAREN ORTIZ . Admission #: [id number] Family : Order #: [id number] CLICK HERE TO VIEW EXAM RADIOLOGY REPORT [...] unknown cancer at age 51. LOCATION: [facility] BREAST COMPOSITION: Extremely dense, which lowers [...] by: Jonathon Huber M.D. on 11/15/2022 at 07:51NormCleveland Clinic Hillcrest HospitalINSULINon 49-96-3806Agxjffw2.2 uIU/mLNormal2.6-24.9[facility] Comment on above:Performed By: #### INSULIN #### [facility] [address] [place] [address] Dr. Jessica Dickerson AUTO DIFFon 96-08-3099HFTM #0.0 103/ulNormal0.0-0.1[facility] DaytonComment on above:Performed By: #### LIPID, CMP, TSH, T7 #### [facility] [address] [place] [address] Dr. Jessica MosquedaBasophils/100 WBC (Bld)0.5 %Normal0.2-2.0[facility] Comment on above:Performed By: #### LIPID, CMP, TSH, T7 #### [facility] [address] [place] [address] Dr. Jessica Swan #0.3 103/ulNormal0.0-0.7The [facility] HospitalComment on above: Performed By: #### LIPID, CMP, TSH, T7 #### [facility] [address] [place] [address] Dr. Jessica Salmonosinophils/100 WBC (Bld)3.6 %Normal0.9-7.0[facility] Comment on above:Performed By: #### LIPID, CMP, TSH, T7 #### [facility] [address] [place] [address] Dr. Jessica Salmonrythrocyte distribution width (RBC) [Ratio]13.2 %Srhdbt56.0-15.0 The [facility] HospitalComment on above:Performed By: #### LIPID, CMP, TSH, T7 #### [facility] [address] [place] [address] Dr. Jessica MosquedaHematocrit (Bld) [Volume fraction]41.9 %Utmaik42.0-48.0The [facility] HospitalComment on above:Performed By: #### LIPID, CMP, TSH, T7 #### [facility] [address] [place] [address] Dr. Jessica MosquedaHemoglobin (Bld) [Mass/Vol]13.3 g/mPXhydep16.0-16.0The [facility] HospitalComment on above:Performed By: #### LIPID, CMP, TSH, T7 #### [facility] [address] [place] [address] Dr. Jessica Brand #0.02 10e3/ulNormal0.00-0.03The [facility] HospitalComment on above:Performed By: #### LIPID, CMP, TSH, T7 #### [facility] [address] [place] [address] Dr. Jessica Brand %0.3 %Normal0.0-0.5The [facility] on above: Performed By: #### LIPID, CMP, TSH, T7 #### [facility] [address] [place] [address] Dr. Jessica Peralta #2.2 103/ulNormal1.2-3.8The [facility] HospitalComment on above:Performed By: #### LIPID, CMP, TSH, T7 #### [facility] [address] [place] [address] Dr. Jessica Scottmphocytes/100 WBC (Bld)29.6 %Qfgqjo25.5-60.0The [facility] HospitalComment on above:Performed By: #### LIPID, CMP, TSH, T7 #### [facility] [address] [place] [address] Dr. Jessica BinghamUAL DIFF REQNONormalThe [facility] HospitalComment on above: Performed By: #### LIPID, CMP, TSH, T7 #### [facility] [address] [place] [address] Dr. Jessica Ramesh (RBC) [Entitic mass]28.9 jlVmttaj47.7-34.0The [facility] HospitalComment on above:Performed By: #### LIPID, CMP, TSH, T7 #### [facility] [address] [place] [address] Dr. Jessica Ramesh (RBC) [Mass/Vol]31.7 g/wUFtkqsb43.9-35.2The [facility] HospitalComment on above:Performed By: #### LIPID, CMP, TSH, T7 #### [facility] [address] [place] [address] Dr. Jessica Ramesh (RBC) [Entitic vol]91.1 zWBhtumi30.0-99.0The [facility] HospitalComment on above:Performed By: #### LIPID, CMP, TSH, T7 #### [facility] [address] [place] [address] Dr. Jessica Murguia #0.5 103/ulNormal0.3-0.8The [facility] HospitalComment on above:Performed By: #### LIPID, CMP, TSH, T7 #### [facility] [address] [place] [address] Dr. Jessica Pathakocytes/100 WBC (Bld)6.1 %Normal1.7-12.0The [facility] Comment on above:Performed By: #### LIPID, CMP, TSH, T7 #### [facility] [address] [place] [address] Dr. Jessica Lin #4.4 103/ulNormal1.4-6.5The [facility] Rehabilitation HospitalComment on above:Performed By: #### LIPID, CMP, TSH, T7 #### [facility] [address] [place] [address] Dr. Jessica Godoyutrophils/100 WBC (Bld)59.9 %Dwbxzs78.0-75.0The [facility] on above:Performed By: #### LIPID, CMP, TSH, T7 #### [facility] [address] [place] [address] Dr. Jessica Gong mean volume (Bld) [Entitic vol]12.5 fLNormal9.5-13.5The [facility] HospitalCommckenzie memorial hospital on above:Performed By: #### LIPID, CMP, TSH, T7 #### [facility] [address] [place] [address] Dr. Jessica MosquedaPLT157 103/gzOegytu615-261Rtk [facility] on above: Performed By: #### LIPID, CMP, TSH, T7 #### [facility] [address] [place] [address] Dr. Jessica MosquedaRBC4.60 106/ulNormal4.20-5.40The [facility] on above:Performed By: #### LIPID, CMP, TSH, T7 #### [facility] [address] [place] [address] Dr. Jessica MosquedaWBC7.3 103/ulNormal4.0-11.0The [facility] on above: Performed By: #### LIPID, CMP, TSH, T7 #### [facility] [address] [place] [address] Dr. Jessica Arrington THYROXINE INDEX T7on 79-72-5263LBJ4.89Itkzpv8.30-4.50The [facility] on above:Performed By: #### LIPID, CMP, TSH, T7 #### [facility] [address] [place] [address] Dr. Jessica MosquedaT3U38.0 %Yyjaex82.0-39.0The [facility] on above: Performed By: #### LIPID, CMP, TSH, T7 #### [facility] [address] [place] [address] Dr. Jessica MosquedaT4 [Mass/Vol]6.60 ug/dLNormal4.80-13.90The [facility] Comment on above:Performed By: #### LIPID, CMP, TSH, T7 #### [facility] [address] [place] [address] Dr. Jessica MosquedaGLYCOHEMOGLOBIN A1Con [id number] RECOMMENDATIONSEE BELOWRegency Hospital CompanyComment on above:Result Comment: ADA RECOMMENDED LIMIT 4.0 - 6.0 ADA THERAPEUTIC TARGET < 7.0 ACTION SUGGESTED > 7.0Performed By: #### PTHINT #### [facility] [address] [place] [address] Dr. Jessica MosquedaGlucose [Mass/Vol]111 mg/dLNoOhioHealthComment on above:Performed By: #### PTHINT #### [facility] [address] [place] [address] Dr. Jessica MosquedaHbA1c (Bld) [Mass fraction]5.5 %Normal4.5-6.2The [facility] HospitalComment on above:Performed By: #### PTHINT #### [facility] [address] [place] [address] Dr. Jessica Hernandez [id number] [Mass/Vol]58.0 ug/qTDkwmgy61.0-170.0The [facility] HospitalComment on above:Performed By: #### PTHINT #### [facility] [address] [place] [address] Dr. Jessica MosquedaLIPID PROFILEon [id number]-HDL RATIO NORMSEE BELOWChillicothe VA Medical CenterComment on above:Result Comment: 3.3 - 4.4 LOW RISK 4.4 - 7.1 AVERAGE RISK 7.1 - 11.0 MODERATE RISK >11.0 HIGH RISKPerformed By: #### LIPID, CMP, TSH, T7 #### [facility] [address] [place] [address] Dr. Jessica MosquedaCholesterol [Mass/Vol]205 mg/dLCritically high<=200The [facility] HospitalComment on above:Performed By: #### LIPID, CMP, TSH, T7 #### [facility] [address] [address] [address] Jessica Pinedaesterol in HDL [Mass/Vol]60 mg/yLWominn49-51Dhd [facility] on above:Performed By: #### LIPID, CMP, TSH, T7 #### [facility] [address] [address] [address] Jessica Pinedaesterol in LDL [Mass/Vol]127.4 mg/dLNoOhioHealthComment on above:Performed By: #### LIPID, CMP, TSH, T7 #### [facility] [address] [address] [address] Jessica Erazo.total/Cholesterol in HDL [Mass ratio]3.4 {ratio} NormalThe [facility] HospitalComment on above:Performed By: #### LIPID, CMP, TSH, T7 #### [facility] [address] [place] [address] Dr. Jessica Trujillo NORMAL> or = 60 mg/dl - LOW CARDIOVASCULAR RISK <40 mg/dl - HIGH CARDIOVASCULAR RISKNoOhioHealthComment on above:Performed By: #### LIPID, CMP, TSH, T7 #### [facility] [address] [place] [address] Dr. Jessica Landa CALC NORMALSEE BELOWChillicothe VA Medical CenterComment on above:Result Comment: <100 mg/dl OPTIMAL 100 - 129 mg/dl NEAR OR ABOVE OPTIMAL 130 - 159 mg/dl BORDERLINE HIGH 160 - 189 mg/dl HIGH >190 mg/dl VERY HIGH Performed By: #### LIPID, CMP, TSH, T7 #### [facility] [address] [address] [address] Jessica MosquedaTriglyceride [Mass/Vol]88 mg/dLNormal<=150[facility] Comment on above:Performed By: #### LIPID, CMP, TSH, T7 #### [facility] [address] [address] [address] Jessica LanceLDL CALC17.6 mg/dLNoOhioHealthComment on above: Performed By: #### LIPID, CMP, TSH, T7 #### [facility] [address] [place] [address] Dr. Jessica Patterson 14(COMP METB)on [id number] [Mass/Vol]3.8 g/dLNormal 3.4-5.0The [facility] HospitalComment on above:Performed By: #### LIPID, CMP, TSH, T7 #### [facility] [address] [place] [address] Dr. Jessica MosquedaAlbumin/Globulin [Mass ratio]1.1 {ratio}NormalThe [facility] HospitalComment on above:Performed By: #### LIPID, CMP, TSH, T7 #### [facility] [address] [place] [address] Dr. Jessica Mullins [Catalytic activity/Vol]37 U/LCritically dps58-231Aid [facility] HospitalComment on above:Performed By: #### LIPID, CMP, TSH, T7 #### [facility] [address] [place] [address] Dr. Jessica Salinas [Catalytic activity/Vol]16 U/QHcioos63-99Qzx [facility] HospitalComment on above:Performed By: #### LIPID, CMP, TSH, T7 #### [facility] [address] [place] [address] Dr. Jessica Ibanez gap [Moles/Vol]13.7 mmol/LNormalThe [facility] Comment on above:Performed By: #### LIPID, CMP, TSH, T7 #### [facility] [address] [place] [address] Dr. Jessica MosquedaAST [Catalytic activity/Vol]14 U/LCritically dcy73-11Qez [facility] HospitalComment on above:Performed By: #### LIPID, CMP, TSH, T7 #### [facility] [address] [place] [address] Dr. Jessica Croweirubin [Mass/Vol]0.4 mg/dLNormal0.2-1.0The [facility] Comment on above:Performed By: #### LIPID, CMP, TSH, T7 #### [facility] [address] [place], [place] [address] Dr. Jessica MosquedaCalcium [Mass/Vol]9.6 mg/dLNormal8.5-10.1The [facility] Comment on above:Performed By: #### LIPID, CMP, TSH, T7 #### [facility] [address] [address] [address] Jessica MosquedaChloride [Moles/Vol]107 mmol/FHmfgtt98-815Yzs [facility] Comment on above:Performed By: #### LIPID, CMP, TSH, T7 #### [facility] [address] [address] [address] Jessica MosquedaCO2 [Moles/Vol]27.5 mmol/XUbfudy70.0-32.0The [facility] Comment on above:Performed By: #### LIPID, CMP, TSH, T7 #### [facility] [address] [place] [address] Dr. Jessica MosquedaCreatinine [Mass/Vol]1.74 mg/dLCritically high0.55-1.02The [facility] HospitalComment on above:Performed By: #### LIPID, CMP, TSH, T7 #### [facility] [address] [address] [address] Jessica SalmonGFR-AF ROJJHQIF27 mL/min/1.80u8Jysdblotog low>=60The [facility] HospitalComment on above:Performed By: #### LIPID, CMP, TSH, T7 #### [facility] [address] [address] [address] Jessica SalmonGFR-NON AF OJWCEWUA66 mL/min/1.05g4Tbuvsiaznl low>=60The [facility] HospitalComment on above:Performed By: #### LIPID, CMP, TSH, T7 #### [facility] [address] [address] [address] Jessica MosquedaGlobulin (S) [Mass/Vol]3.4 g/dLNormalThe [facility] HospitalComment on above:Performed By: #### LIPID, CMP, TSH, T7 #### [facility] [address] [address] [address] Jessica MosquedaGlucose [Mass/Vol]95 mg/jDIyqazt14-642Ifw [facility] Comment on above:Performed By: #### LIPID, CMP, TSH, T7 #### [facility] [address] [place] [address] Dr. Jessica MosquedaPotassium [Moles/Vol]4.2 mmol/LNormal3.5-5.1The [facility] Comment on above:Performed By: #### LIPID, CMP, TSH, T7 #### [facility] [address] [place] [address] Dr. Jessica MosquedaProtein [Mass/Vol]7.2 g/dLNormal6.4-8.2The [facility] Comment on above:Performed By: #### LIPID, CMP, TSH, T7 #### [facility] [address] [place] [address] Dr. Jessica MosquedaSodium [Moles/Vol]144 mmol/IUzqumf446-735Euf [facility] Comment on above:Performed By: #### LIPID, CMP, TSH, T7 #### [facility] [address] [place] [address] Dr. Jessica MosquedaUrea nitrogen [Mass/Vol]25.0 mg/dLCritically high7.0-18.0The [facility] HospitalComment on above:Performed By: #### LIPID, CMP, TSH, T7 #### [facility] [address] [place] [address] Dr. Jessica Hanson nitrogen/Creatinine [Mass ratio]14.4 mg/mgNormalThe [facility] HospitalComment on above:Performed By: #### LIPID, CMP, TSH, T7 #### [facility] [address] [place] [address] Dr. Jessica Brown 20-28-7820LUJ7.244 uIU/mLNormal0.358-3.740The [facility] HospitalComment on above:Performed By: #### LIPID, CMP, TSH, T7 #### [facility] [address] [place] [address] Dr. Jessica FrancesH INTACTon 55-20-6494XGI, Wtzmfp76 pg/vLVmnnez13-25Iza [facility] HospitalComment on above:Performed By: #### LIPID, CMP, TSH, T7 #### [facility] [address] [place] [address] Dr. Jessica MosquedaHEMOGRAM AND PLATELon 19-73-1092Lxhylpxlgx (Bld) [Volume fraction]39.0 %Wyxrth04.0-48.0The [facility] HospitalComment on above:Performed By: #### HH #### [facility] [address] [place] [address] Dr. Jessica MosquedaHemoglobin (Bld) [Mass/Vol]12.3 g/pCQrztbe08.0-16.0The [facility] HospitalComment on above:Performed By: #### HH #### [facility] [address] [place] [address] Dr. Jessica RameshH (RBC) [Entitic mass]29.1 pzGqrgrp42.7-34.0The [facility] Hospitalment on above:Performed By: #### HH #### [facility] [address] [place] [address] Dr. Jessica Ramesh (RBC) [Mass/Vol]31.5 g/gMKagefp32.9-35.2The [facility] HospitalComment on above:Performed By: #### HH #### [facility] [address] [place] [address] Dr. Jessica RameshV (RBC) [Entitic vol]92.4 dLBqumtr45.0-99.0The [facility] HospitalCommckenzie memorial hospital on above:Performed By: #### HH #### [facility] [address] [place] [address] Dr. Jessica MosquedaPLT131 103/ulCritically tls016-037Oov [facility] HospitalCommck[facility] hospital on above:Performed By: #### HH #### [facility] [address] [place] [address] Dr. Jessica MosquedaRBC4.22 106/ulNormal4.20-5.40The [facility] on above:Performed By: #### HH #### [facility] [address] [address] [address] Jessica MosquedaWBC8.6 103/ulNormal4.0-11.0The [facility] HospitalComment on above: Performed By: #### HH #### [facility] [address] [place] [address] Dr. Jessica LeonardUSon 53-78-4980Zdkgizcsb [Mass/Vol]4.3 mg/dLNormal2.6-4.7 The [facility] HospitalComment on above:Performed By: #### PTHINT #### [facility] [address] [place] [address] Dr. Jessica MosquedaPROF 14(COMP METB)on 91-35-5241Nyhyxkj [Mass/Vol]3.9 g/dLNormal 3.4-5.0The [facility] HospitalComment on above:Performed By: #### PTHINT #### [facility] [address] [place] [address] Dr. Jessica MosquedaAlbumin/Globulin [Mass ratio]1.1 {ratio}NormalThe [facility] HospitalComment on above:Performed By: #### PTHINT #### [facility] [address] [place] [address] Dr. Jessica Mullins [Catalytic activity/Vol]34 U/LCritically zul79-479Cvd [facility] HospitalComment on above:Performed By: #### PTHINT #### [facility] [address] [place] [address] Dr. Jessica Salinas [Catalytic activity/Vol]13 U/LCritically ohl81-33Hos [facility] HospitalComment on above:Performed By: #### PTHINT #### [facility] [address] [place] [address] Dr. Jessica Ibanez gap [Moles/Vol]13.6 mmol/LNormalThe [facility] on above:Performed By: #### PTHINT #### [facility] [address] [place] [address] Dr. Jessica Mckeon [Catalytic activity/Vol]9 U/LCritically rar91-00Zph [facility] HospitalComment on above:Performed By: #### PTHINT #### [facility] [address] [address] [address] Jessica MosquedaBilirubin [Mass/Vol]0.3 mg/dLNormal0.2-1.0[facility] Comment on above:Performed By: #### PTHINT #### [facility] [address] [address] [address] Jessica MosquedaCalcium [Mass/Vol]9.5 mg/dLNormal8.5-10.1[facility] Comment on above:Performed By: #### PTHINT #### [facility] [address] [address] [address] Jessica MosquedaChloride [Moles/Vol]105 mmol/FSvwnqb85-422ZomAccess [facility] Comment on above:Performed By: #### PTHINT #### [facility] [address] [address] [address] Jessica MosquedaCO2 [Moles/Vol]24.7 mmol/MQqxltj81.0-32.0[facility] Comment on above:Performed By: #### PTHINT #### [facility] [address] [address] [address] Jessica MosquedaCreatinine [Mass/Vol]1.67 mg/dLCritically high0.55-1.02[facility] DaytonComment on above:Performed By: #### PTHINT #### [facility] [address] [address] [address] Jessica SalmonGFR-AF BCVGJZPK87 mL/min/1.81g7Oqsuukkfab low>=60The [facility] HospitalComment on above:Performed By: #### PTHINT #### [facility] [address] [address] [address] Jessica SalmonGFR-NON AF TLUQJNLW81 mL/min/1.84n5Jsmyzzagew low>=60The [facility] HospitalComment on above:Performed By: #### PTHINT #### [facility] [address] [address] [address] Jessica MosquedaGlobulin (S) [Mass/Vol]3.5 g/dLNormalThe [facility] HospitalComment on above:Performed By: #### PTHINT #### [facility] [address] [address] [address] Jessica MosquedaGlucose [Mass/Vol]94 mg/bZWpnjjj34-909XdwAccess Hospital [place] Comment on above:Performed By: #### PTHINT #### [facility] [address] [address] [address] Jessica MosquedaPotassium [Moles/Vol]4.4 mmol/LNormal3.5-5.1[facility] Comment on above:Performed By: #### PTHINT #### [facility] [address] [place] [address] Dr. Jessica MosquedaProtein [Mass/Vol]7.4 g/dLNormal6.4-8.2[facility] Comment on above:Performed By: #### PTHINT #### [facility] [address] [address] [address] Jessica MosquedaSodium [Moles/Vol]139 mmol/CWltlum113-413WfwAccess [facility] [place] Comment on above:Performed By: #### PTHINT #### [facility] [address] [place] [address] Dr. Jessica MosquedaUrea nitrogen [Mass/Vol]29.0 mg/dLCritically high7.0-18.0[facility]Comment on above:Performed By: #### PTHINT #### [facility] [address] [place] [address] Dr. Jessica MosquedaUrea nitrogen/Creatinine [Mass ratio]17.4 mg/mgNoalThMemorial Health SystemComment on above:Performed By: #### PTHINT #### [facility] [address] [place] [address] Dr. Jessica MosquedaPTH INTACTon 54-51-9043JRK, Nolsku68 pg/zHPlfrrx48-37BkeAccess Hospital DaytonComment on above:Performed By: #### PTHINT #### [facility] [address] [place] [address] Dr. Jessica MosquedaHEMOGRAM AND PLATELon 78-76-0163Mxzzumhxrv (Bld) [Volume fraction]37.5 %Xnazao50.0-48.0The [facility] HospitalComment on above:Performed By: #### PTHINT #### [facility] [address] [place] [address] Dr. Jessica MosquedaHemoglobin (Bld) [Mass/Vol]12.1 g/rMWhtvho67.0-16.0The [facility] HospitalComment on above:Performed By: #### PTHINT #### [facility] [address] [place] [address] Dr. Jessica RameshH (RBC) [Entitic mass]29.0 qdMjebwh40.7-34.0The [facility] HospitalComment on above:Performed By: #### PTHINT #### [facility] [address] [place] [address] Dr. Jessica RameshHC (RBC) [Mass/Vol]32.3 g/aPKvkltk78.9-35.2The [facility] HospitalComment on above:Performed By: #### PTHINT #### [facility] [address] [place] [address] Dr. Jessica RameshV (RBC) [Entitic vol]89.9 rDTdnapm18.0-99.0The [facility] HospitalComment on above:Performed By: #### PTHINT #### [facility] [address] [place] [address] Dr. Jessica MosquedaPLT170 103/keEigdke197-394Vzr [facility] HospitalComment on above: Performed By: #### PTHINT #### [facility] [address] [place] [address] Dr. Jessica MosquedaRBC4.17 106/ulCritically low4.20-5.40The [facility] HospitalCommckenzie memorial hospital on above:Performed By: #### PTHINT #### [facility] [address] [place] [address] Dr. Jessica MosquedaWBC9.4 103/ulNormal4.0-11.0The [facility] HospitalComment on above: Performed By: #### PTHINT #### [facility] [address] [place] [address] Dr. Jessica LeonardUSon 24-06-2752Ccyzxghim [Mass/Vol]3.8 mg/dLNormal2.6-4.7 The [facility] HospitalComment on above:Performed By: #### LIPID, CMP, TSH, T7 #### [facility] [address] [address] [address] Jessica MosquedaPROF 14(COMP METB)on 73-92-3973Dzyuxxf [Mass/Vol]4.0 g/dLNormal 3.4-5.0The [facility] HospitalComment on above:Performed By: #### LIPID, CMP, TSH, T7 #### [facility] [address] [place] [address] Dr. Jessica MosquedaAlbumin/Globulin [Mass ratio]1.2 {ratio}NormalThe [facility] HospitalComment on above:Performed By: #### LIPID, CMP, TSH, T7 #### [facility] [address] [place] [address] Dr. Jessica Mullins [Catalytic activity/Vol]38 U/LCritically eck14-956Qly [facility] HospitalComment on above:Performed By: #### LIPID, CMP, TSH, T7 #### [facility] [address] [place] [address] Dr. Jessica Salinas [Catalytic activity/Vol]13 U/LCritically ezn98-93Agr [facility] HospitalComment on above:Performed By: #### LIPID, CMP, TSH, T7 #### [facility] [address] [place] [address] Dr. Jessica Ibanez gap [Moles/Vol]13.1 mmol/LNormalThe [facility] Comment on above:Performed By: #### LIPID, CMP, TSH, T7 #### [facility] [address] [place] [address] Dr. Jessica Mckeon [Catalytic activity/Vol]14 U/LCritically hvw38-96Ntt [facility] HospitalComment on above:Performed By: #### LIPID, CMP, TSH, T7 #### [facility] [address] [address] [address] Jessica MosquedaBilirubin [Mass/Vol]0.4 mg/dLNormal0.2-1.0The [facility] Comment on above:Performed By: #### LIPID, CMP, TSH, T7 #### [facility] [address] [address] [address] Jessica MosquedaCalcium [Mass/Vol]9.2 mg/dLNormal8.5-10.1The [facility] Comment on above:Performed By: #### LIPID, CMP, TSH, T7 #### [facility] [address] [place] [address] Dr. Jessica MosquedaChloride [Moles/Vol]104 mmol/PRrqxvw26-588Kib [facility] Comment on above:Performed By: #### LIPID, CMP, TSH, T7 #### [facility] [address] [place] [address] Dr. Jessica MosquedaCO2 [Moles/Vol]26.1 mmol/FBdpxou58.0-32.0The [facility] Comment on above:Performed By: #### LIPID, CMP, TSH, T7 #### [facility] [address] [place] [address] Dr. Jessica MosquedaCreatinine [Mass/Vol]1.86 mg/dLCritically high0.55-1.02The [facility] HospitalComment on above:Performed By: #### LIPID, CMP, TSH, T7 #### [facility] [address] [place] [address] Dr. Jessica SalmonGFR-AF ZJKFOPDS21 mL/min/1.54g3Ukgbbkxrzq low>=60The [facility] HospitalComment on above:Performed By: #### LIPID, CMP, TSH, T7 #### [facility] [address] [place] [address] Dr. Jessica SalmonGFR-NON AF MTIDROGT57 mL/min/1.76f1Qnbgxmksbh low>=60The [facility] HospitalComment on above:Performed By: #### LIPID, CMP, TSH, T7 #### [facility] [address] [place] [address] Dr. Jessica MosquedaGlobulin (S) [Mass/Vol]3.4 g/dLNormCleveland Clinic Hillcrest HospitalComment on above:Performed By: #### LIPID, CMP, TSH, T7 #### [facility] [address] [address] [address] Jessica MosquedaGlucose [Mass/Vol]84 mg/lNPihdky77-978Ufh [facility] Comment on above:Performed By: #### LIPID, CMP, TSH, T7 #### [facility] [address] [address] [address] Jessica MosquedaPotassium [Moles/Vol]4.2 mmol/LNormal3.5-5.1The [facility] Comment on above:Performed By: #### LIPID, CMP, TSH, T7 #### [facility] [address] [address] [address] Jessica MosquedaProtein [Mass/Vol]7.4 g/dLNormal6.4-8.2The [facility] Comment on above:Performed By: #### LIPID, CMP, TSH, T7 #### [facility] [address] [address] [address] Jessica MosquedaSodium [Moles/Vol]139 mmol/TAoguli896-688Kfc [facility] Comment on above:Performed By: #### LIPID, CMP, TSH, T7 #### [facility] [address] [address] [address] Jessica MosquedaUrea nitrogen [Mass/Vol]26.0 mg/dLCritically high7.0-18.0The [facility] HospitalComment on above:Performed By: #### LIPID, CMP, TSH, T7 #### [facility] [address] [address] [address] Jessica MosquedaUrea nitrogen/Creatinine [Mass ratio]14.0 mg/mgNoOhioHealthComment on above:Performed By: #### LIPID, CMP, TSH, T7 #### [facility] [address] [address] [address] Jessica Darby RANDOMon [id number] Ql (U)NegativeNormalNEGATIVEAccess Hospital DaytonComment on above:Performed By: #### LIPID, CMP, TSH, T7 #### [facility] [address] [address] [address] Jessica Kaplan (U)CLEARNormalCLEARAccess Hospital DaytonComment on above: Performed By: #### LIPID, CMP, TSH, T7 #### [facility] [address] [address] [address] Jessica Parr (U)LT. YELLOWNormalYELLOWAccess Hospital DaytonComment on above:Performed By: #### LIPID, CMP, TSH, T7 #### [facility] [address] [address] [address] Jessica MosquedaGlucose Ql (U)NegativeNormalNEGATIVEAccess Hospital DaytonComment on above:Performed By: #### LIPID, CMP, TSH, T7 #### [facility] [address] [address] [address] Jessica MosquedaHemoglobin Ql (U)NegativeNormalNEGFlower Hospital on above:Performed By: #### LIPID, CMP, TSH, T7 #### [facility] [address] [address] [address] Jessica Waterman Ql (U)NegativeNormalNEGATIVEAccess Hospital DaytonComment on above:Performed By: #### LIPID, CMP, TSH, T7 #### [facility] [address] [address] [address] Jessica MosquedaLEUKOCYTESNegativeNormalNEGATIVEAccess Hospital DaytonCommckenzie memorial hospital on above:Performed By: #### LIPID, CMP, TSH, T7 #### [facility] [address] [address] [address] Jessica Quintanatrearnest Ql (U)NegativeNormalNEGATIVETriHealth Bethesda North Hospitalment on above:Performed By: #### LIPID, CMP, TSH, T7 #### [facility] [address] [address] [address] Jessica MosquedapH (U)6.0 [pH]Normal5-9Access Hospital DaytonComment on above: Performed By: #### LIPID, CMP, TSH, T7 #### [facility] [address] [place] [address] Dr. Jessica MosquedaSPEC GRAVITY<=1.783Gelcggkj0.005-<=1.025The [facility] Comment on above:Performed By: #### LIPID, CMP, TSH, T7 #### [facility] [address] [place] [address] Dr. Jessica MosquedaUA PROTEINNegativeNormalNEGATIVE/ TRACEThe [facility] Comment on above:Performed By: #### LIPID, CMP, TSH, T7 #### [facility] [address] [place] [address] Dr. Jessica Thomas Qn (U)0.2 {Fran'U}/dLNormal0.2 - 1.0The [facility] HospitalComment on above:Performed By: #### LIPID, CMP, TSH, T7 #### [facility] [address] [place] [address] Dr. Jessica Patterson 14(COMP METB)on 10-48-4037Xnblgcz [Mass/Vol]3.9 g/dLNormal 3.4-5.0The [facility] HospitalComment on above:Performed By: #### PTHINT #### [facility] [address] [place] [address] Dr. Jessica MosquedaAlbumin/Globulin [Mass ratio]1.1 {ratio}NormalThe [facility] HospitalComment on above:Performed By: #### PTHINT #### [facility] [address] [place] [address] Dr. Jessica Mullins [Catalytic activity/Vol]36 U/LCritically vwt45-919Rcr [facility] HospitalComment on above:Performed By: #### PTHINT #### [facility] [address] [place] [address] Dr. Jessica Salinas [Catalytic activity/Vol]17 U/BYabxcv92-78Qze [facility] HospitalComment on above:Performed By: #### PTHINT #### [facility] [address] [place] [address] Dr. Jessica Stuarton gap [Moles/Vol]13.9 mmol/LNormalAccess Hospital [place] Comment on above:Performed By: #### PTHINT #### [facility] [address] [address] [address] Jessica MosquedaAST [Catalytic activity/Vol]11 U/LCritically umk60-77Fnn [facility] HospitalComment on above:Performed By: #### PTHINT #### [facility] [address] [address] [address] Jessica MosquedaBilirubin [Mass/Vol]0.3 mg/dLNormal0.2-1.0[facility] Comment on above:Performed By: #### PTHINT #### [facility] [address] [address] [address] Jessica MosquedaCalcium [Mass/Vol]9.2 mg/dLNormal8.5-10.1[facility] Comment on above:Performed By: #### PTHINT #### [facility] [address] [address] [address] Jessica MosquedaChloride [Moles/Vol]105 mmol/EPngpwo15-889AjyAccess Hospital [place] Comment on above:Performed By: #### PTHINT #### [facility] [address] [place] [address] Dr. Jessica MosquedaCO2 [Moles/Vol]26.5 mmol/YFottib67.0-32.0[facility] Comment on above:Performed By: #### PTHINT #### [facility] [address] [address] [address] Jessica MosquedaCreatinine [Mass/Vol]2.06 mg/dLCritically high0.55-1.02The [facility] HospitalComment on above:Performed By: #### PTHINT #### [facility] [address] [address] [address] Jessica SalmonGFR-AF VISVGUYF40 mL/min/1.48w6Qfsmorhisg low>=60The [facility] HospitalComment on above:Performed By: #### PTHINT #### [facility] [address] [address] [address] Jessica SalmonGFR-NON AF CBEXUNMD37 mL/min/1.44t9Vlodbrpbrn low>=60The [facility] HospitalComment on above:Performed By: #### PTHINT #### [facility] [address] [address] [address] Jessica MosquedaGlobulin (S) [Mass/Vol]3.5 g/dLNormCleveland Clinic Hillcrest HospitalComment on above:Performed By: #### PTHINT #### [facility] [address] [address] [address] Jessica MosquedaGlucose [Mass/Vol]75 mg/bRGqvzdg95-060Ijd [facility] Comment on above:Performed By: #### PTHINT #### [facility] [address] [place] [address] Dr. Jessica MosquedaPotassium [Moles/Vol]4.4 mmol/LNormal3.5-5.1The [facility] Comment on above:Performed By: #### PTHINT #### [facility] [address] [place] [address] Dr. Jessica MosquedaProtein [Mass/Vol]7.4 g/dLNormal6.4-8.2The [facility] Comment on above:Performed By: #### PTHINT #### [facility] [address] [place] [address] Dr. Jessica MosquedaSodium [Moles/Vol]141 mmol/MHuyefp394-851Ino [facility] Comment on above:Performed By: #### PTHINT #### [facility] [address] [place] [address] Dr. Jessica MosquedaUrea nitrogen [Mass/Vol]37.0 mg/dLCritically high7.0-18.0The [facility] HospitalComment on above:Performed By: #### PTHINT #### [facility] [address] [place] [address] Dr. Jessica MosquedaUrea nitrogen/Creatinine [Mass ratio]18.0 mg/mgNoalThMemorial Health SystemComment on above:Performed By: #### PTHINT #### [facility] [address] [address] [address] Jessica BeckerF 14(COMP METB)on 20-94-7919Rrhnxmk [Mass/Vol]3.9 g/dLNormal 3.4-5.0The [facility] HospitalComment on above:Performed By: #### CMP #### [facility] [address] [place] [address] Dr. Jessica MosquedaAlbumin/Globulin [Mass ratio]1.2 {ratio}NormalThe [facility] HospitalComment on above:Performed By: #### CMP #### [facility] [address] [place] [address] Dr. Jessica GormanP [Catalytic activity/Vol]32 U/LCritically pki28-570Oxn [facility] HospitalComment on above:Performed By: #### CMP #### [facility] [address] [place] [address] Dr. Jessica GormanT [Catalytic activity/Vol]12 U/LCritically quv92-55Akj [facility] HospitalComment on above:Performed By: #### CMP #### [facility] [address] [place] [address] Dr. Jessica Ibanez gap [Moles/Vol]13.6 mmol/LNormalThe [facility] Comment on above:Performed By: #### CMP #### [facility] [address] [place] [address] Dr. Jessica MosquedaAST [Catalytic activity/Vol]15 U/IOaerqa31-12Aex [facility] HospitalComment on above:Performed By: #### CMP #### [facility] [address] [place] [address] Dr. Jessica MosquedaBilirubin [Mass/Vol]0.2 mg/dLNormal0.2-1.0The [facility] Comment on above:Performed By: #### CMP #### [facility] [address] [place] [address] Dr. Jessica MosquedaCalcium [Mass/Vol]9.2 mg/dLNormal8.5-10.1The [facility] Comment on above:Performed By: #### CMP #### [facility] [address] [address] [address] Jessica MosquedaChloride [Moles/Vol]105 mmol/MRhtwvk41-783Aro [facility] Comment on above:Performed By: #### CMP #### [facility] [address] [address] [address] Jessica MosquedaCO2 [Moles/Vol]26.0 mmol/WIfixca84.0-32.0The [facility] Comment on above:Performed By: #### CMP #### [facility] [address] [address] [address] Jessica MosquedaCreatinine [Mass/Vol]1.98 mg/dLCritically high0.55-1.02The [facility] HospitalComment on above:Performed By: #### CMP #### [facility] [address] [address] [address] Lopez ChangEGFR-AF SPVCZZFR49 mL/min/1.49u5Pusfrfqrcg low>=60The [facility] HospitalComment on above:Performed By: #### CMP #### [facility] [address] [address] [address] Jessica SalmonGFR-NON AF BGBWDRXR88 mL/min/1.91d1Wsmxnwfvlg low>=60The [facility] HospitalComment on above:Performed By: #### CMP #### [facility] [address] [address] [address] Jessica MosquedaGlobulin (S) [Mass/Vol]3.3 g/dLNormalThe [facility] HospitalComment on above:Performed By: #### CMP #### [facility] [address] [address] [address] Jessica MosquedaGlucose [Mass/Vol]93 mg/wVCopvhq52-335Sml [facility] Comment on above:Performed By: #### CMP #### [facility] [address] [address] [address] Jessica MosquedaPotassium [Moles/Vol]4.6 mmol/LNormal3.5-5.1The [facility] Comment on above:Performed By: #### CMP #### [facility] [address] [address] [address] Jessica MosquedaProtein [Mass/Vol]7.2 g/dLNormal6.4-8.2The [facility] Comment on above:Performed By: #### CMP #### [facility] [address] [address] [address] Jessica MosquedaSodium [Moles/Vol]140 mmol/OZurnjk056-446Gmg [facility] Comment on above:Performed By: #### CMP #### [facility] [address] [address] [address] Jessica MosquedaUrea nitrogen [Mass/Vol]23.0 mg/dLCritically high7.0-18.0The [facility] HospitalComment on above:Performed By: #### CMP #### [facility] [address] [address] [address] Jessica Hanson nitrogen/Creatinine [Mass ratio]11.6 mg/mgNormalThe [facility] HospitalComment on above:Performed By: #### CMP #### [facility] [address] [address] [address] Jessica MosquedaPTH INTACTon 17-17-4610LMY, Bztbwa78 pg/mLCritically wekk99-18Kwm [facility] HospitalComment on above:Performed By: #### PTHINT #### [facility] [address] [place] [address] Dr. Jessica MosquedaHEMOGRAM AND PLATELon 62-84-7194Mpvyghvumr (Bld) [Volume fraction]37.8 %Hgykws85.0-48.0The [facility] HospitalComment on above:Performed By: #### HH #### [facility] [address] [address] [address] Jessica MosquedaHemoglobin (Bld) [Mass/Vol]12.3 g/lHDkptac54.0-16.0The [facility] HospitalComment on above:Performed By: #### HH #### [facility] [address] [address] [address] Jessica Munguia (RBC) [Entitic mass]29.6 oxZgissu64.7-34.0The [facility] HospitalComment on above:Performed By: #### HH #### [facility] [address] [place] [address] Dr. Jessica RameshHC (RBC) [Mass/Vol]32.5 g/hECuljfl78.9-35.2The [facility] HospitalComment on above:Performed By: #### HH #### [facility] [address] [place] [address] Dr. Jessica RameshV (RBC) [Entitic vol]90.9 wOWpadxb28.0-99.0The [facility] HospitalComment on above:Performed By: #### HH #### [facility] [address] [place] [address] Dr. Jessica MosquedaPLT158 103/jfUydaxe341-269Yfj [facility] HospitalComment on above: Performed By: #### HH #### [facility] [address] [place] [address] Dr. Jessica MosquedaRBC4.16 106/ulCritically low4.20-5.40The [facility] HospitalComment on above:Performed By: #### HH #### [facility] [address] [place] [address] Dr. Jessica MosquedaWBC10.3 103/ulNormal4.0-11.0The [facility] HospitalComment on above:Performed By: #### HH #### [facility] [address] [place] [address] Dr. Jessica MosquedaPHOSPHORUSon 66-91-3893Rdmvahitr [Mass/Vol]4.7 mg/dLNormal2.6-4.7 The [facility] HospitalComment on above:Performed By: #### LIPID, CMP, TSH, T7 #### [facility] [address] [place] [address] Dr. Jessica Patterson 14(COMP METB)on 11-17-6783Eemmhyk [Mass/Vol]4.1 g/dLNormal 3.4-5.0The [facility] HospitalComment on above:Performed By: #### LIPID, CMP, TSH, T7 #### [facility] [address] [address] [address] Jessica MosquedaAlbumin/Globulin [Mass ratio]1.2 {ratio}NormalThe [facility] Hospitalment on above:Performed By: #### LIPID, CMP, TSH, T7 #### [facility] [address] [place] [address] Dr. Jessica Mullins [Catalytic activity/Vol]36 U/LCritically bhw89-180Bny [facility] HospitalComment on above:Performed By: #### LIPID, CMP, TSH, T7 #### [facility] [address] [place] [address] Dr. Jessica GormanT [Catalytic activity/Vol]16 U/PIypmuq56-46Mbo [facility] HospitalComment on above:Performed By: #### LIPID, CMP, TSH, T7 #### [facility] [address] [place] [address] Dr. Jessica Stuarton gap [Moles/Vol]15.4 mmol/LNormalThe [facility] Comment on above:Performed By: #### LIPID, CMP, TSH, T7 #### [facility] [address] [place] [address] Dr. Jessica MosquedaAST [Catalytic activity/Vol]12 U/LCritically rjx89-83Mai [facility] Hospitalment on above:Performed By: #### LIPID, CMP, TSH, T7 #### [facility] [address] [place] [address] Dr. Jessica MosquedaBilirubin [Mass/Vol]0.6 mg/dLNormal0.2-1.0The [facility] Comment on above:Performed By: #### LIPID, CMP, TSH, T7 #### [facility] [address] [place] [address] Dr. Jessica MosquedaCalcium [Mass/Vol]9.3 mg/dLNormal8.5-10.1[facility] Comment on above:Performed By: #### LIPID, CMP, TSH, T7 #### [facility] [address] [place] [address] Dr. Jessica MosquedaChloride [Moles/Vol]103 mmol/DQrlhsv39-471Oqt [facility] Comment on above:Performed By: #### LIPID, CMP, TSH, T7 #### [facility] [address] [address] [address] Jessica MosquedaCO2 [Moles/Vol]24.4 mmol/EQekbgb55.0-32.0The [facility] Comment on above:Performed By: #### LIPID, CMP, TSH, T7 #### [facility] [address] [address] [address] Jessica MosquedaCreatinine [Mass/Vol]2.04 mg/dLCritically high0.55-1.02[facility] DaytonComment on above:Performed By: #### LIPID, CMP, TSH, T7 #### [facility] [address] [address] [address] Lopez ChangEGFR-AF ORKYMOYH34 mL/min/1.16i1Sczeccqqjw low>=60The [facility] HospitalComment on above:Performed By: #### LIPID, CMP, TSH, T7 #### [facility] [address] [address] [address] Jessica SalmonGFR-NON AF YOMZLZUD01 mL/min/1.69b8Zkmmmafkee low>=60The [facility] HospitalComment on above:Performed By: #### LIPID, CMP, TSH, T7 #### [facility] [address] [address] [address] Jessica MosquedaGlobulin (S) [Mass/Vol]3.3 g/dLNormalThe [facility] HospitalComment on above:Performed By: #### LIPID, CMP, TSH, T7 #### [facility] [address] [address] [address] Jessica MosquedaGlucose [Mass/Vol]84 mg/iCHbyahf68-666FsfAccess [facility] [place] Comment on above:Performed By: #### LIPID, CMP, TSH, T7 #### [facility] [address] [address] [address] Jessica MosquedaPotassium [Moles/Vol]3.8 mmol/LNormal3.5-5.1[facility] Comment on above:Performed By: #### LIPID, CMP, TSH, T7 #### [facility] [address] [address] [address] Jessica MosquedaProtein [Mass/Vol]7.4 g/dLNormal6.4-8.2The [facility] Comment on above:Performed By: #### LIPID, CMP, TSH, T7 #### [facility] [address] [address] [address] Jessica Bricenodium [Moles/Vol]139 mmol/XNwmjbi173-200Uwd [facility] Comment on above:Performed By: #### LIPID, CMP, TSH, T7 #### [facility] [address] [place] [address] Dr. Jessica Hanson nitrogen [Mass/Vol]30.0 mg/dLCritically high7.0-18.0[facility] DaytonComment on above:Performed By: #### LIPID, CMP, TSH, T7 #### [facility] [address] [place] [address] Dr. Jessica Hanson nitrogen/Creatinine [Mass ratio]14.7 mg/mgNormalThe [facility] HospitalComment on above:Performed By: #### LIPID, CMP, TSH, T7 #### [facility] [address] [place] [address] Dr. Jessica Darby RANDOMon 88-99-4776Ogijwdnwh Ql (U)NegativeNormalNEGATIVEAccess Hospital DaytonComment on above:Performed By: #### LIPID, CMP, TSH, T7 #### [facility] [facility] [address] [place] [address] Dr. Jessica Hicksarity (U)CLEARNormalCLEARAccess Hospital DaytonComment on above: Performed By: #### LIPID, CMP, TSH, T7 #### [facility] [address] [place] [address] Dr. Jessica Parr (U)LT. YELLOWNormalYELLOWAccess Hospital DaytonComment on above:Performed By: #### LIPID, CMP, TSH, T7 #### [facility] [address] [place] [address] Dr. Jessica MosquedaGlucose Ql (U)NegativeNormalNEGATIVEAccess Hospital DaytonComment on above:Performed By: #### LIPID, CMP, TSH, T7 #### [facility] [address] [place] [address] Dr. Jessica MosquedaHemoglobin Ql (U)NegativeNormalNEGPremier Health Atrium [facility] Comment on above:Performed By: #### LIPID, CMP, TSH, T7 #### [facility] [address] [address] [address] Jessica MosquedaKetones Ql (U)NegativeNormalNEGATIVEAccess Hospital DaytonComment on above:Performed By: #### LIPID, CMP, TSH, T7 #### [facility] [address] [place] [address] Dr. Jessica MosquedaLEUKOCYTESNegativeNormalNEGATIVEAccess Hospital DaytonComment on above:Performed By: #### LIPID, CMP, TSH, T7 #### [facility] [address] [place] [address] Dr. Jessica MosquedaNitrite Ql (U)NegativeNormalNEGATIVEAccess Hospital DaytonComment on above:Performed By: #### LIPID, CMP, TSH, T7 #### [facility] [address] [place] [address] Dr. Jessica MosquedapH (U)5.5 [pH]Normal5-9Access Hospital DaytonComment on above: Performed By: #### LIPID, CMP, TSH, T7 #### [facility] [address] [place] [address] Dr. Jessica MsoquedaSPEC GRAVITY1.165Ofytpp8.005-<=1.025The [facility] HospitalComment on above:Performed By: #### LIPID, CMP, TSH, T7 #### [facility] [address] [place] [address] Dr. Jessica MosquedaUA PROTEINNegativeNormalNEGATIVE/ TRACEAccess Hospital Dayton Comment on above:Performed By: #### LIPID, CMP, TSH, T7 #### [facility] [address] [place] [address] Dr. Yilan ChangUrobilinogen Qn (U)0.2 {Fran'U}/dLNormal0.2 - 1.0The [facility] HospitalComment on above:Performed By: #### LIPID, CMP, TSH, T7 #### [facility] [address] [place] [address] Dr. Jessica Bedolla T PROTEIN CREAT RATIOon [id number] TOTAL PROTEIN<6.0 Normal<=12.0The [facility] HospitalComment on above:Performed By: #### LIPID, CMP, TSH, T7 #### [facility] [address] [place] [address] Dr. Jessica Bedolla CREAT23.46 mg/eSSdmevo86.00-300.00The [facility] Comment on above:Performed By: #### LIPID, CMP, TSH, T7 #### [facility] [address] [place] [address] Dr. Jessica Patterson 14(COMP METB)on [id number] [Mass/Vol]3.8 g/dLNormal 3.4-5.0The [facility] HospitalComment on above:Performed By: #### LIPID, CMP, TSH, T7 #### [facility] [address] [place] [address] Dr. Jessica MosquedaAlbumin/Globulin [Mass ratio]1.3 {ratio}NormalThe [facility] HospitalComment on above:Performed By: #### LIPID, CMP, TSH, T7 #### [facility] [address] [place] [address] Dr. Jessica Mullins [Catalytic activity/Vol]35 U/LCritically jlu43-384Ebe [facility] HospitalComment on above:Performed By: #### LIPID, CMP, TSH, T7 #### [facility] [address] [place] [address] Dr. Jessica Salinas [Catalytic activity/Vol]17 U/QJoipnw13-91Sxa [facility] HospitalComment on above:Performed By: #### LIPID, CMP, TSH, T7 #### [facility] [address] [place] [address] Dr. Yilan ChangAnion gap [Moles/Vol]12.2 mmol/LNormalAccess Hospital Dayton Comment on above:Performed By: #### LIPID, CMP, TSH, T7 #### [facility] [address] [address] [address] Jessica MosquedaAST [Catalytic activity/Vol]13 U/LCritically gzk06-79JqrAccess Hospital DaytonComment on above:Performed By: #### LIPID, CMP, TSH, T7 #### [facility] [address] [address] [address] Jessica MosquedaBilirubin [Mass/Vol]0.4 mg/dLNormal0.2-1.0[facility] Comment on above:Performed By: #### LIPID, CMP, TSH, T7 #### [facility] [address] [place] [address] Dr. Jessica MosquedaCalcium [Mass/Vol]8.6 mg/dLNormal8.5-10.1[facility] Comment on above:Performed By: #### LIPID, CMP, TSH, T7 #### [facility] [address] [place] [address] Dr. Jessica MosquedaChloride [Moles/Vol]106 mmol/XPbpoyb74-975CkdAccess Hospital Dayton Comment on above:Performed By: #### LIPID, CMP, TSH, T7 #### [facility] [address] [address] [address] Jessica MosquedaCO2 [Moles/Vol]26.1 mmol/RYmcqdw64.0-32.0[facility] Comment on above:Performed By: #### LIPID, CMP, TSH, T7 #### [facility] [address] [place] [address] Dr. Jessica MosquedaCreatinine [Mass/Vol]1.76 mg/dLCritically high0.55-1.02The [facility] HospitalComment on above:Performed By: #### LIPID, CMP, TSH, T7 #### [facility] [address] [place] [address] Dr. Lopez ChangEGFR-AF RDXWHLPF02 mL/min/1.86g0Btnzslkscb low>=60The Amity HospitalComment on above:Performed By: #### LIPID, CMP, TSH, T7 #### [facility] [address] [address] [address] Jessica SalmonGFR-NON AF YESHSPEM55 mL/min/1.13j7Twaxttspia low>=60The [facility] HospitalComment on above:Performed By: #### LIPID, CMP, TSH, T7 #### [facility] [address] [place] [address] Dr. Jessica MosquedaGlobulin (S) [Mass/Vol]3.0 g/dLNormalThe [facility] HospitalComment on above:Performed By: #### LIPID, CMP, TSH, T7 #### [facility] [address] [place] [address] Dr. Jessica MosquedaGlucose [Mass/Vol]81 mg/mHYgmdtv47-092FzvAccess Hospital Dayton Comment on above:Performed By: #### LIPID, CMP, TSH, T7 #### [facility] [address] [place] [address] Dr. Jessica MosquedaPotassium [Moles/Vol]4.3 mmol/LNormal3.5-5.1The [facility] Comment on above:Performed By: #### LIPID, CMP, TSH, T7 #### [facility] [address] [place] [address] Dr. Jessica MosquedaProtein [Mass/Vol]6.8 g/dLNormal6.4-8.2[facility] Comment on above:Performed By: #### LIPID, CMP, TSH, T7 #### [facility] [address] [place] [address] Dr. Jessica MosquedaSodium [Moles/Vol]140 mmol/KMepdpt472-513JaqAccess Hospital Dayton Comment on above:Performed By: #### LIPID, CMP, TSH, T7 #### [facility] [address] [place] [address] Dr. Jessica MosquedaUrea nitrogen [Mass/Vol]20.0 mg/dLCritically high7.0-18.0Access Hospital DaytonComment on above:Performed By: #### LIPID, CMP, TSH, T7 #### [facility] [address] [address] [address] Jessica Hanson nitrogen/Creatinine [Mass ratio]11.4 mg/mgNormalThe [facility] HospitalComment on above:Performed By: #### LIPID, CMP, TSH, T7 #### [facility] [address] [place] [address] Dr. Jessica MosquedaPROF 14(COMP METB)on [id number] [Mass/Vol]4.0 g/dLNormal 3.4-5.0The [facility] HospitalComment on above:Performed By: #### LIPID, CMP, TSH, T7 #### [facility] [address] [place] [address] Dr. Jessica MosquedaAlbumin/Globulin [Mass ratio]1.2 {ratio}NormalThe [facility] HospitalComment on above:Performed By: #### LIPID, CMP, TSH, T7 #### [facility] [address] [place] [address] Dr. Jessica Mullins [Catalytic activity/Vol]31 U/LCritically bkg35-444Ejl [facility] HospitalComment on above:Performed By: #### LIPID, CMP, TSH, T7 #### [facility] [address] [place] [address] Dr. Jessica Salinas [Catalytic activity/Vol]19 U/GCvwvna05-90Iuc [facility] HospitalComment on above:Performed By: #### LIPID, CMP, TSH, T7 #### [facility] [address] [place] [address] Dr. Jessica Ibanez gap [Moles/Vol]13.7 mmol/LNormalThe [facility] on above:Performed By: #### LIPID, CMP, TSH, T7 #### [facility] [address] [place] [address] Dr. Jessica Mckeon [Catalytic activity/Vol]12 U/LCritically gak61-29Ryb [facility] HospitalComment on above:Performed By: #### LIPID, CMP, TSH, T7 #### [facility] [address] [place] [address] Dr. Yilan ChangBilirubin [Mass/Vol]0.3 mg/dLNormal0.2-1.0The [facility] Comment on above:Performed By: #### LIPID, CMP, TSH, T7 #### [facility] [address] [address] [address] Jessica MosquedaCalcium [Mass/Vol]9.3 mg/dLNormal8.5-10.1The [facility] Comment on above:Performed By: #### LIPID, CMP, TSH, T7 #### [facility] [address] [address] [address] Jessica MosquedaChloride [Moles/Vol]106 mmol/GGdpkcq99-202Rlu [facility] Comment on above:Performed By: #### LIPID, CMP, TSH, T7 #### [facility] [address] [address] [address] Jessica MosquedaCO2 [Moles/Vol]25.4 mmol/YImpagt43.0-32.0The [facility] Comment on above:Performed By: #### LIPID, CMP, TSH, T7 #### [facility] [address] [address] [address] Jessica MosquedaCreatinine [Mass/Vol]1.84 mg/dLCritically high0.55-1.02The [facility] HospitalComment on above:Performed By: #### LIPID, CMP, TSH, T7 #### [facility] [address] [address] [address] Jessica SalmonGFR-AF CNUEINYU42 mL/min/1.47t8Lcreloghzn low>=60The [facility] HospitalComment on above:Performed By: #### LIPID, CMP, TSH, T7 #### [facility] [address] [address] [address] Jessica SalmonGFR-NON AF IJNVVLRT21 mL/min/1.31j3Weewahuswc low>=60The [facility] HospitalComment on above:Performed By: #### LIPID, CMP, TSH, T7 #### [facility] [address] [address] [address] Jessica MosquedaGlobulin (S) [Mass/Vol]3.4 g/dLNormalThe [facility]ity HospitalComment on above:Performed By: #### LIPID, CMP, TSH, T7 #### [facility] [address] [address] [address] Jessica MosquedaGlucose [Mass/Vol]99 mg/oBKktbhu28-123Xxf [facility] Comment on above:Performed By: #### LIPID, CMP, TSH, T7 #### [facility] [address] [address] [address] Jessica MosquedaPotassium [Moles/Vol]4.1 mmol/LNormal3.5-5.1The [facility] Comment on above:Performed By: #### LIPID, CMP, TSH, T7 #### [facility] [address] [place] [address] Dr. Jessica MosquedaProtein [Mass/Vol]7.4 g/dLNormal6.4-8.2The [facility] Comment on above:Performed By: #### LIPID, CMP, TSH, T7 #### [facility] [address] [place] [address] Dr. Jessica MosquedaSodium [Moles/Vol]141 mmol/XIlbxgf322-559Xsu [facility] Comment on above:Performed By: #### LIPID, CMP, TSH, T7 #### [facility] [address] [place] [address] Dr. Jessica MosquedaUrea nitrogen [Mass/Vol]25.0 mg/dLCritically high7.0-18.0The [facility] HospitalComment on above:Performed By: #### LIPID, CMP, TSH, T7 #### [facility] [address] [place] [address] Dr. Jessica Hanson nitrogen/Creatinine [Mass ratio]13.6 mg/mgNoOhioHealthComment on above:Performed By: #### LIPID, CMP, TSH, T7 #### [facility] [address] [place] [address] Dr. Jessica Hammonds [id number] () Office ([place]) ISABEL RIVERA ([id number]) 1980 F Date Time Provider Department 09/04/19 3:45 PM LUIS ANGEL HALL During your visit today, we recorded the following information about you: Temperature Pulse Respiration Blood pressure 97.6 degrees 66/minute 18/minute 115/66 Weight Height 82.2 kg 1.676 m Luis Angel Hall, 09/06/2019 9:21 AM Signed PATIENT NAME: Isabel Rivera REFERRING PHYSICIAN: Timothy Mills MD [address] [place] [address] [place] [address] PRIMARY CARE PHYSICIAN: Maren Ortiz MD CHIEF [...] did not have a lupus anticoagulant. Protein [employer] were within expected ranges. She had negative [...] 2017. Right posterior tibial vein and associated direct mail coordinator veins. Follows with Dr. Bateman, vascular. 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 Medications as of September 2017 [...] and plan. I answered all questions satisfactorily.. Juan Hall D.O. Medical Oncologist [facility] [place], [place] Cc. Dr. Bateman. Referring Provider: LUIS ANGEL HALL [[id number]] Allergies As of Date: 09/04/2019 Noted Allergy [...] LUIS ANGEL HALL DO on 09/06/19[facility] [id number] ID: [id number] Author: Luis Angel Hall Service: ? Author Type: Physician Type: Progress Notes Filed: 09/06/2019 9:21 AM Note Text: PATIENT NAME: Isabel Rivera REFERRING PHYSICIAN: Timothy Mills MD [address] [place] [address] [place] [address] PRIMARY CARE PHYSICIAN: Maren Ortiz MD CHIEF [...] did not have a lupus anticoagulant. Protein [employer] were within expected ranges. She had negative [...] 2017. Right posterior tibial vein and associated direct mail coordinator veins. Follows with Dr. Bateman, vascular. 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 Medications as of September 2017 [...] my recommendations listed below. The patient Isabel Peterjohncresencio verbalized understanding and agreed with these recommendations and plan. I answered all questions satisfactorily.. Juan Hall D.O. Medical Oncologist [facility] [place], [place] Cc. Dr. Bateman.[facility] HospitalCNOVSPon [id number] (SP) Office ([place]) ISABEL RIVERA ([id number]) 1980 F Date Time Provider Department 07/30/19 3:45 PM JUAN HALLOTHY Tanja HEMACL During your visit today, we recorded the following information about you: Temperature Pulse Respiration Blood pressure 98.4 degrees 61/minute 16/minute 107/69 Weight Height 80.6 kg 1.676 m Luis Angel Hall DO 08/02/2019 11:50 AM Signed PATIENT NAME: Isabel Rivera REFERRING PHYSICIAN: Timothy Mills MD [address] [place] [address] [place] [address] PRIMARY CARE PHYSICIAN: Maren Ortiz MD CHIEF [...] CBC + DIFF (FOR REMOTE [facility] USE) - BASIC METABOLIC PNL - HEPATIC [...] 2017. Right posterior tibial vein and associated direct mail coordinator veins. Follows with Dr. Bateman, vascular. 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 Medications as of September 2017 [...] and plan. I answered all questions satisfactorily.. Juan Hall D.O. Medical Oncologist [facility] [place], [place] Cc. Dr. Bateman. Referring Provider: TIMOTHY MILLS [[id number]] Allergies As of Date: 07/30/2019 (Not on File) Date Reviewed: 07/30/2019 Reviewed by: Lavonne Borrego - Fully Assessed Reason for Visit: Consult [173] Primary Visit Diagnosis:Acute deep vein thrombosis (DVT) of proximal vein of both lower extremities (HCC) [I82.4Y3] Order(s):US LEG VEIN DVT [facility] [2242477] Order #: [id number] FUTURE FACTOR V LEIDEN/PCR [SQFVLEID] Order #: [id number] FUTURE PROTHROMBIN GENE PCR [SQPTGENE] Order #: [id number] FUTURE PROTEIN C FUNCT [SQPRCFUN] Order #: [id number] FUTURE PROTEIN S CLOTTABLE [SQPRSCLT] Order #: [id number] FUTURE ANTITHROMBIN ACTIVITY [CANM8HQR] Order #: [id number] FUTURE LUPUS ANTICOAG PL [SQLUPUSP] Order #: [id number] FUTURE B 2 GPI IGG AND IGM [VBU9HREQ] Order #: [id number] FUTURE ANTI-CARDIOLIPIN AB [SQCARDIO] Order #: [id number] FUTURE HOMOCYSTEINE [SQHOMCYS] Order #: [id number] FUTURE FERRITIN BLD [SQFERR] Order #: [id number] FUTURE IRON + TIBC [SQIRON] Order #: [id number] FUTURE CBC + DIFF (FOR REMOTE [facility] USE) [SQRCBCDF] Order #: [id number] FUTURE BASIC METABOLIC PNL [SQBMP] Order #: [id number] FUTURE HEPATIC FUNCTION PNL [SQHFP] Order #: [id number] FUTURE Disposition: Return labs today. f/u 4 [...] LUIS ANGEL HALL DO on 08/02/19[facility] [id number] ID: [id number] Author: Luis Angel Hall Service: ? Author Type: Physician Type: Progress Notes Filed: 08/02/2019 11:50 AM Note Text: PATIENT NAME: Isabel Rivera REFERRING PHYSICIAN: Timothy Mills MD [address] [place] [address] [address] [address] PRIMARY CARE PHYSICIAN: Maren Ortiz MD CHIEF [...] CBC + DIFF (FOR REMOTE [facility] USE) - BASIC METABOLIC PNL - HEPATIC [...] 2017. Right posterior tibial vein and associated direct mail coordinator veins. Follows with Dr. Bateman, vascular. 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 Medications as of September 2017 [...] and plan. I answered all questions satisfactorily.. Juan Hall D.O. Medical Oncologist [place], [place] Cc. Dr. Bateman.Normal[facility] Vital Signs Date TimeVital SignValuePerforming UtregsvyoPchljpct03-89-2634 13:49-0500Body jycnza481 cmCorey RealScout DO Work Phone: [phone] HospitalNvmyxvpyop84-99-4440 13:49-0500Body mass index (BMI) [Ratio]31 kg/s3Nvjbs Greg DO Work Phone: [phone] HospitalDovzzffage63-75-9691 13:49-0500Body vuztsg68.38 kgCore [employer] Work Phone: [phone] HospitalWibeclscjo06-43-7426 13:49-0500Diastolic blood uxcjlqtd10 mm[Hg]Sandy Greg DO Work Phone: [phone] HospitalZmppjvxybc62-87-7228 13:49-0500Systolic blood auqwhxfq251 mm[Hg]Sandy Greg [employer] Work Phone: [phone]-[facility] HospitalAtdyabgexa47-77-8771 13:48-0400Body saclga35.76 kgCorey [employer] Work Phone: [phone]-[facility] HospitalRtnjbwftwu93-29-0823 13:48-0400Diastolic blood ihfudsjd56 mm[Hg]Sandy Greg DO Work Phone: [facility] HospitalOqigkcbefd71-92-1601 13:48-0400Systolic blood mm[Hg]Sandy Greg DO Work Phone: [facility] HospitalLvrkikjbzv87-65-3428 16:09-0400Body rmwmxy732.64 cmMaren Ortiz MD Work Phone: [phone]08-21-2025 16:09-0400 Body mass index (BMI) [Ratio]29 kg/b9DivxcfoMaren Ortiz MD Work Phone: [phone] [place], [place] 5539008-21-2025 16:09-0400 Body .64 kgMaren Ortiz MD Work Phone: [phone] [place], [place] 5539008-21-2025 16:09-0400 Diastolic blood iamxpifd62 mm[Hg]Maren Ortiz MD Work Phone: [phone] [place], [place] 5539008-21-2025 16:09-0400 Heart rate61 /Minerva Ortiz MD Work Phone: [phone] [place], [place] 5539008-21-2025 16:09-0400 Respiratory rate16 /Minerva Ortiz MD Work Phone: [phone] [place], [place] 5539008-21-2025 16:09-0400 SaO2% (BldA) [Mass fraction]99 %Maren Ortiz MD Work Phone: [phone])[facility]1990[facility]08-21-2025 16:09-0400 Systolic blood aeujijqk552 mm[Hg]Maren Ortiz MD Work Phone: [phone] [place], [place] 5539005-29-2025 16:30-0400 Body nmyhar108.64 cmUniversity [facility]als [facility]05-29-2025 16:30-0400Body mass index (BMI) [Ratio]30.8 kg/s6JqdqzqgraUniversity Hospitals Beachwood Medical Center05-29-2025 16:30-0400Body uhruigdtlkd44.6 [degF][facility]05-29-2025 16:30-0400Body .69 kgUniversity Hospitals Beachwood [facility] Center05-29-2025 16:30-0400Diastolic blood guyfqylz32 mm[Hg][facility] 01-15-2025 16:30-0400Heart rate49 /minUniversity Hospitals Beachwood Medical Center 01-15-2025 16:30-0400Respiratory rate16 /[facility] 01-15-2025 16:30-7161DpC9% (BldA) [Mass fraction]100 %[facility]05-29-2025 16:30-0400Systolic blood pwygwkhv534 mm[Hg][facility]02-13-2025 15:31-0500Body wtujdi568.64 cmUniversity Hospitals Beach[facility] Center02-13-2025 15:31-0500Body mass index (BMI) [Ratio]32.1 kg/m2 [facility]02-13-2025 15:31-0500Body aiqfqe40.43 kg [facility]02-13-2025 15:31-0500Diastolic blood ukygvhoh21 mm[Hg][facility]02-13-2025 15:31-0500Heart rate65 /min [facility]02-13-2025 15:31-0500Respiratory rate16 /min [facility]02-13-2025 15:31-1222RiZ9% (BldA) [Mass fraction]100 %[facility]02-13-2025 15:31-0500Systolic blood wdnxttou729 mm[Hg][facility]11-21-2024 10:21-0500 Body douley563.64 cmUniversity Hospitals Beach[facility] Center11-21-2024 10:21-0500Body mass index (BMI) [Ratio]32.6 kg/e5YcoopotrnUniversity Hospitals Beachwood Medical Center11-21-2024 10:-0500Body drqtgdwnwyp77 [degF][facility]11-21-2024 10:-050Body xokzgc33.68 kgUniversity Hospitals Beachwood Medical Center11-21-2024 10:-0500Diastolic blood mm[Hg][facility] 07-10-2024 10:21-0500Heart rate62 /[facility] 07-10-2024 10:21-0500Respiratory rate16 /[facility] 07-10-2024 10:21-6094KuI4% (BldA) [Mass fraction]100 %[facility]11-21-2024 10:21-0500Systolic blood zmtxlzmu831 mm[Hg][facility]08-08-2024 16:25-0400Body .64 cmUniversity Hospitals Beach[facility] Center08-08-2024 16:25-0400Body mass index (BMI) [Ratio]32.3 kg/m2 [facility]08-08-2024 16:25-0400Body pfvlacgpqjv36.9 [degF][facility]08-08-2024 16:25-0400Body qjxbmu64.74 kg [facility]08-08-2024 16:25-0400Diastolic blood vzmpvume95 mm[Hg][facility]08-08-2024 16:25-0400Heart rate53 /min [facility]08-08-2024 16:25-0400Respiratory rate16 /min [facility]08-08-2024 16:25-4193NkG1% (BldA) [Mass fraction]100 %[facility]08-08-2024 16:25-0400Systolic blood lzzwaahp290 mm[Hg][facility]05-23-2024 15:58-0400 Body xwxiug206.64 cmUniversity [facility]als [facility]05-23-2024 15:58-0400Body mass index (BMI) [Ratio]33.5 kg/w9HbkihvoofUniversity Hospitals Beachwood Medical Center05-23-2024 15:58-0400Body okxbxlxrlel73.2 [degF][facility]05-23-2024 15:58-0400Body ltsiwx40.34 kgUniversity [facility]als [facility]05-23-2024 15:58-0400Diastolic blood cvaasoiz10 mm[Hg][facility] 01-10-2024 15:58-0400Heart rate68 /[facility] 01-10-2024 15:58-0400Respiratory rate16 /[facility] 01-10-2024 15:58-9981PgT2% (BldA) [Mass fraction]100 %[facility]05-23-2024 15:58-0400Systolic blood kzuryitq172 mm[Hg][facility]02-22-2024 15:51-0500Body xtunyb752.64 cmUniversity [facility]als [facility]02-22-2024 15:51-0500Body mass index (BMI) [Ratio]33.6 kg/m2 [facility]02-22-2024 15:51-0500Body .9 [degF][facility]02-22-2024 15:51-0500Body giygus82.57 kg [facility]02-22-2024 15:51-0500Diastolic blood wodutsps42 mm[Hg][facility]02-22-2024 15:51-0500Heart rate72 /min [facility]02-22-2024 15:51-0500Respiratory rate16 /min [facility]02-22-2024 15:51-4963ZsJ2% (BldA) [Mass fraction]100 %[facility]02-22-2024 15:51-0500Systolic blood mqmicgjh094 mm[Hg][facility]11-09-2023 16:00-0500 Body zsfcra584.72 cmEssparam Becerra Other [employer] Other [id number] 16:00-0500Body mass index (BMI) [Ratio] 31.35 kg/w4OcqweMaeve Becerra Other [employer] Other 11-09-2023 16:00-0500Body mlfiddvoehn18.3 [degF]Maeve Becerra Other [employer] Other 11-09-2023 16:00-0500Body jicvwt79.53 kgMaeve Becerra Other [employer] Other 11-09-2023 16:00-0500Diastolic blood igzinyda44 mm[Hg] Maeve Becerra Other [employer] Other 11-09-2023 16:00-0500Respiratory rate18 /minEmagno Becerra Other [place] [employer] Other 11-09-2023 16:00-4729SaZ0% (BldA) [Mass fraction]98 % Maeve Becerra Other [place] [employer] Other 11-09-2023 16:00-0500Systolic blood elkrvvtt066 mm[Hg] Maeve Becerra Other [place] [employer] Other 08-17-2023 16:00-0400Body exyjrw104.72 cmEmagno Becerra Other [place] [employer] Other 08-17-2023 16:00-0400Body mass index (BMI) [Ratio] 31.23 kg/n8AjqxzMaeve Becerra Other [place] [employer] Other 08-17-2023 16:00-0400Body ajnfuotxgry64.4 [degF]Maeve Becerra Other [place] [employer] Other 08-17-2023 16:00-0400Body .17 kgMaeve Becerra Other [employer] Other 08-17-2023 16:00-0400Diastolic blood uygvjndb06 mm[Hg] Maeve Becerra Other [employer] Other 08-17-2023 16:00-0400Respiratory rate18 /Jose R Becerra Other [employer] Other 08-17-2023 16:00-1504DpO9% (BldA) [Mass fraction]99 % Maeve Becerra Other [employer] Other 08-17-2023 16:00-0400Systolic blood qsxkoxib261 mm[Hg] Maeve Becerra Other [employer] Other 05-04-2023 17:00-0400Body kpyhyz823.72 cmEmagno Becerra Other [employer] Other 05-04-2023 17:00-0400Body mass index (BMI) [Ratio] 31.14 kg/n0PlonqMaeve Becerra Other [employer] Other 05-04-2023 17:00-0400Body kafeukbnulc34.5 [degF]Maeve Becerra Other [employer] Other 05-04-2023 17:00-0400Body xsufuf90.9 kgMaeve Becerra Other [employer] Other 05-04-2023 17:00-0400Diastolic blood dxdjehrq77 mm[Hg] Maeve Becerra Other [employer] Other 05-04-2023 17:00-0400Respiratory rate18 /Jose R Becerra Other [employer] Other 05-04-2023 17:00-2242XuU1% (BldA) [Mass fraction]98 % Maeve Becerra Other [employer] Other 05-04-2023 17:00-0400Systolic blood cygukxzv063 mm[Hg] Maeve Becerra Other [employer] Other 02-09-2023 17:00-0500Body ocjhhe978.72 cmEmagno Becerra Other [employer] Other 02-09-2023 17:00-0500Body mass index (BMI) [Ratio] 31.11 kg/y8Qiiuo Tiffanie Other [employer] Other 02-09-2023 17:00-0500Body .2 [degF]Maeve Tiffanie Other [employer] Other 02-09-2023 17:00-0500Body cqlena23.81 kgMaeve Becerra Other [employer] Other 02-09-2023 17:00-0500Diastolic blood qlkoaafz23 mm[Hg] Maeve Tiffanie Other [employer] Other 02-09-2023 17:00-0500Respiratory rate18 /minEmagno Becerra Other [employer] Other 02-09-2023 17:00-9339HxC2% (BldA) [Mass fraction]98 % Maeve Tiffanie Other [employer] Other 02-09-2023 17:00-0500Systolic blood xkwihery673 mm[Hg] Sekouparam Becerra Other [employer] Other 11-17-2022 17:00-0500Body akhety108.72 cmEmagno Becerra Other [employer] Other 11-17-2022 17:00-0500Body mass index (BMI) [Ratio] 30.32 kg/j5SchfyMaeve Becerra Other [employer] Other 11-17-2022 17:00-0500Body azkpdwuovdw92.1 [degF]Maeve Becerra Other [employer] Other 11-17-2022 17:00-0500Body lgsuuc95.45 kgMaeve Becerra Other [employer] Other 11-17-2022 17:00-0500Diastolic blood vkqswwyv03 mm[Hg] Maeve Becerra Other [employer] Other 11-17-2022 17:00-0500Respiratory rate18 /minEmagno Becerra Other [employer] Other 11-17-2022 17:00-8708QmD9% (BldA) [Mass fraction]99 % Maeve Becerra Other [employer] Other 11-17-2022 17:00-0500Systolic blood vawzjirw877 mm[Hg] Maeve Becerra Other [employer] Other 08-04-2022 16:40-0400Body .72 cmEmagno Becerra Other [employer] Other 08-04-2022 16:40-0400Body mass index (BMI) [Ratio] 30.47 kg/d6FkqfjMaeve Becerra Other [employer] Other 08-04-2022 16:40-0400Body lxfprakswrf39.9 [degF]Maeve Becerra Other [employer] Other 08-04-2022 16:40-0400Body yxsoiy16.9 kgMaeve Becerra Other [employer] Other 08-04-2022 16:40-0400Diastolic blood tphypshk26 mm[Hg] Maeve Becerra Other [employer] Other 08-04-2022 16:40-0400Respiratory rate18 /minEmagno Becerra Other [employer] Other 08-04-2022 16:40-6407ShQ6% (BldA) [Mass fraction]99 % Maeve Becerra Other [employer] Other 08-04-2022 16:40-0400Systolic blood mm[Hg] Maeve Becerra Other [employer] Other 12-21-2021 17:00-0500Body .72 cmEmagno Becerra Other [employer] Other 12-21-2021 17:00-0500Body mass index (BMI) [Ratio] 30.53 kg/y2HjgqxMaeve Becerra Other [employer] Other 12-21-2021 17:00-0500Body iowpke89.08 kgMaeve Becerra Other [employer] Other 12-21-2021 17:00-0500Diastolic blood mm[Hg] Maeve Becerra Other [place] [facility] [employer] Other 12-21-2021 17:00-0500Respiratory rate18 /minEmagno Becerra Other [facility] [employer] Other 12-21-2021 17:00-7288ZmA8% (BldA) [Mass fraction]99 % Maeve Becerra Other [place] [facility] [employer] Other 12-21-2021 17:00-0500Systolic blood gehtxygd208 mm[Hg] Maeve Becerra Other [place] [facility] [employer] Other Encounters Encounter DateEncounter TypeCare ProviderFacilityStart: 06-23-2025 End: 95-79-9004Exurvtc encounter procedureCorey Greg DO Work Phone: [facility] OBGYNComment on above:Uterine leiomyoma, unspecified location; Menorrhagia with regular cycle; Request for sterilizationStart: 06-23-2025 End: 55-31-5116kgrbgfseplHstzocp M Hoy MD Work Phone: -[facility] HospStart: 06-23-2025 End: 30-06-5303Fdplldam ReferredCorey Greg-LAB Path Spec Og HospStart: 05-05-2025 End: 54-24-6565Kdrtxb flowsheetCorey Greg DO Work Phone: [facility] Og OBGYNStart: 05-05-2025 End: 25-17-2021Ukiivr flowsheetCorey Greg DO Work Phone: [facility] OBGYNStart: 05-05-2025 End: 42-36-6673Ixoncc outpatient visit 15 minutesCorey Greg DO Work Phone: [facility] OBGYNComment on above:Pelvic pain in female; Uterine leiomyoma, unspecified locationStart: 05-05-2025 End: 39-22-2012gjaredoaczBHIPQ FAMARITZAONot AvailableStart: 04-09-2025 End: 52-30-0081iggvgngwuiEuqhopu M Hoy MD Work Phone: [facility] Work Phone: Start: 04-09-2025 End: 19-98-0671Xaasxtz encounter procedureMaeve Becerra MD-[facility] Work Phone: Start: 01-15-2025 End: 75-04-8721zgnoixyrocOccghqlxaGalion [facility] Work Phone: Start: 01-15-2025 End: 09-75-4457Zkrllgj encounter [facility]Good [facility] Work Phone: Start: 10-02-2024 End: 74-85-3519oezgnplepeAmnkuoxarGalion Community Hospital Work Phone: Start: 10-02-2024 End: 48-97-8123Djjvnzd encounter procedureGood [facility] GroupAt[facility] Work Phone: Start: 07-10-2024 End: 75-64-9690nsbxhzosmvXcpskqdazGalion Community Hospital Work Phone: Start: 07-10-2024 End: 29-14-9976Rfuitxk encounter procedureGood [facility] Hospital [facility]NA[facility] [place] Work Phone: Start: 03-27-2024 End: 40-71-9722oiadoefsacLnbhnleqmGalion Community Hospital Work Phone: Start: 03-27-2024 End: 42-69-8297Tpvcozh encounter procedureGood [facility] Hospital [facility] Work Phone: Start: 62-29-1546Ahh-patient / Non-visitFirchildren[facility] Nephrology Work Phone: Start: 01-10-2024 End: 53-84-9934bvvhwcpauwSvzzehyygGalion Community Hospital Work Phone: Start: 01-10-2024 End: 81-86-9751Amstoje encounter procedureGood [facility] Hospital [facility] Neph[facility] Work Phone: Start: 10-11-2023 End: 65-51-5612vexmppwriiIsvvfushiGalion Community Hospital Work Phone: Start: 10-11-2023 End: 58-28-8615Lixqhdq encounter procedureGood [facility] Hospital [facility] Neph[facility] Work Phone: Start: 06-28-2023 End: 28-67-1791wbofwpevdiMckyp Tiffanie Other [employer] Other Start: 32-24-7813Dfeuzi outpatient visit 15 minutes Essam ElashiFPG NephrologyStart: 06-26-2023 End: 97-08-3865csqsmqddjtKpqfa Boraashi Other [employer] Other Start: 04-92-9792Lvuiqznkd encounterEssam ElashiFPG NephrologyStart: 05-07-2023 End: 11-69-8018ophcocmzgkEsewq Elashi Other [employer] Other Start: 61-25-7985Lbcmgtdia encounterEssam ElashiFPG NephrologyStart: 04-05-2023 End: 14-25-2046qzhswbpkzxHrvss Elashi Other [employer] Other Start: 97-45-0946Kwphid outpatient visit 25 minutes Essam ElashiFPG NephrologyStart: 03-27-2023 End: 94-41-9540ajckzwjjwdUmuos Elashi Other [employer] Other Start: 60-20-4415Mehyhpimq encounterEssam ElashiFPG NephrologyStart: 03-12-2023 End: 02-91-1589fohdxflajmMaybw Elashi Other [employer] Other Start: 01-66-9880Brklvlcta encounterEssam ElashiFPG NephrologyStart: 12-21-2022 End: 83-62-0853qjmqtmzpxkQuzgs Elashi Other [employer] Other Start: 62-30-5434Pihkyz outpatient visit 25 minutes Essam ElashiFPG NephrologyStart: 12-18-2022 End: 57-93-4619dlfndtnkzrGxwdq Elashi Other [employer] Other Start: 55-92-8637Legkaojfl encounterEssam ElashiFPG NephrologyStart: 12-13-2022 End: 29-68-5191uctwpgqaulLU ESSAM ELASHIFacility:I9Nchec: 11-14-2022 End: 70-97-9754rflpesvekmXO MAREN HOY .Facility:X5Skret: 06-99-7601Lawwkfixx for general adult medical examination without abnormal findingsDR MAREN HOY . [facility] 11-10-2022 End: 40-08-0343gfxlvysxgzNW MAREN HOY .Facility:D5Diimc: 11-10-2022 End: 15-11-9122Mtmsfxaic for general adult medical examination without abnormal findingsDR MAREN HOY .Facility:D0Kguar: 09-28-2022 End: 87-41-0315cmbbakpkegTunfs Elashi Other [employer] Other Start: 11-14-8615Fwuztn outpatient visit 25 minutes Essam ElashiFPG NephrologyStart: 09-26-2022 End: 12-80-6560hlmfkxzfxbSN ESSAM ELASHIFacility:P8Ecair: 07-06-2022 End: 25-42-3893iyvtjoaceqRwpvn Elashi Other noCommissioner [employer] Other Start: 49-72-9764Znhdik outpatient visit 25 minutes Essam ElashiFPG NephrologyStart: 07-04-2022 End: 25-14-8731axukzchdxzOsfsj Elashi Other [facility] [employer] Other Start: 16-52-4284Qdxmakixa encounterEssam ElashiFPG NephrologyStart: 06-29-2022 End: 04-51-5428bbchyhlxopBU ESSAM ELASHIFacility:N6Qkvvi: 05-25-2022 End: 97-14-3931xydyswfccpWK ESSAM ELASHIFacility:Y6Lvnki: 04-25-2022 End: 15-91-1816ebtakcrlsvRG ESSAM ELASHIFacility:V5Dtjwd: 04-17-2022 End: 70-99-6072fisggrkniuLocgf Elashi Other [facility] [employer] Other Start: 34-23-2554Scxckimgi encounterEssam ElashiFPG NephrologyStart: 03-23-2022 End: 33-28-5870zmyblbmpxsVdjws Elashi Other [facility] [employer] Other Start: 74-20-1772Kbvvjl outpatient visit 25 minutes Essam ElashiFPG NephrologyStart: 03-22-2022 End: 32-47-0939xqlrszwiqqOJ ESSAM ELASHIFacility:C2Xzbpe: 02-06-2022 End: 61-64-6823ogbxpchayrZV ESSAM ELASHIFacility:O3Bbaln: 01-13-2022 End: 29-82-0724fwmtpptsgbKY [facility] EL[facility]INopershing [facility] hospital [employer] Other start: 49-10-1714Xohlbpera encounterEssam ElashiFPG NephrologyStart: 10-04-2021 End: 90-34-7094ypqzjjjkwvSjwtd Elashi Other [facility] [employer] Other Start: 67-24-9444Lfrbpzvih encounterEssam ElashiFPG NephrologyStart: 09-14-2021 End: 59-06-7521jpzswzfltlVvvks Elashi Other [facility] [employer] Other Start: 17-09-3868Mvbxdokkd encounterEssam ElashiFPG NephrologyStart: 08-09-2021 End: 49-09-1052gbrhqwlhkrOlokn Elashi Other [facility] [employer] Other Start: 46-67-9160Ncueam outpatient visit 25 minutes Essam ElashiFPG NephrologyStart: 07-26-2021 End: 23-31-5838qswoyraiuhFpsyp Elashi Other [facility] [employer] Other Start: 13-29-0708Avozfdtcm encounterEssam ElashiFPG Referral CoordinatorStart: 09-28-2020 End: 44-47-7717timlkdjxqbRoixi Elashi Other [facility] [employer] Other Start: 36-63-3109Mwnnbmkme encounterEssam ElashiFPG Nephrology Procedures DateProcedureProcedure DetailPerforming ClinicianStart: 30-85-5132PGHBUCDNYBP BIOPSYCorey Greg DO Work Phone: Start: 77-58-1425Laqdn test visual color cmprsn methsCorey Greg DO Work Phone: Plan of Treatment DateCare ActivityDetailAuthorStart: 07-23-2025 End: 47-98-2472Gusmtvulwimv / ancillary services kgwortjhuh61/04/2025 8:00 AM EST Ancillary Procedure [facility] [address] [place] [id number] [facility] OBGYNStart: 09-01-6395YsmvqzddnPremier Healthtart: 06-10-2025 End: 83-04-4041Umlbvgs encounter ndqbtintl29/22/2025 3:30 PM EDT Procedure Visit NOMIsabel OVIEDO [address] [place] [id number] Sandy Garza, DO [address] [place] [address] [facility]OMIs[facility] OBGYNStart: 05-05-2025 End: 44-36-2734AN PelvisUS Pelvis w/ TV Imaging Routine Pelvic pain in female Uterine leiomyoma, unspecified location Expected: 05/05/2025, Expires: [facility] Work Phone: comment on above:Expected: 05/05/2025, Expires: 11/02/2025Start: 05-05-2025 End: 33-83-8684Kmlsqux encounter fsgbvstzu00/16/2025 1:40 PM EDT Office Visit LILA [address]VIEDO [address] [place] [id number] Sandy Garza, DO [address] [place] [address] ArrivedLILA Foley OBGYNComment on above:ArrivedStart: 62-99-6171UVINZ-19 Vaccine ( season)COVID-19 Vaccine ( season)[facility] HealthcareStart: 63-74-6779Uklenhqbq vaccinationInfluenza Vaccine (#1)[facility] HealthcareStart: 56-06-5190Zkbcejsxk for malignant neoplasm of breastMammogramNOMS HealthcareStart: 95-52-5937Okglvqmrn for malignant neoplasm of cervixNOMS HealthcareStart: 80-00-7336Tvgyfekph for malignant neoplasm of cervixPap SmearTexas County Memorial Hospitalprehensive metabolic 1999 panel - Serum or [facility] SouthComprehenve metabolic 1999 panel - Serum or [facility] metabolic 1999 panel - Serum or [facility] Comprehensive metabolic 1999 panel - Serum or [facility] metabolic 1999 panel - Serum or [facility] metabolic 1999 panel - Serum or [facility] metabolic 1999 panel - Serum or Plasma [facility] CenterPhospholipase A2 receptor IgG Ab [Units/volume] in Serum by ImmunoassayUniversity Hospitals Beachwood Medical CenterTissue examTissue exam Pathology and Cytology Routine Uterine leiomyoma, unspecified location Ordered: 06/23/2025[facility] Work Phone: comment on above:Ordered: 06/23/2025[facility] Immunizations Immunization DateImmunizationNotesCare XmmenjkgGzhatovo10-62-5307pwwqvkhve virus vaccine, unspecified formulationCorey Greg DO Work Phone: [facility] Healthcare Payers DatePayer CategoryPayerPolicy [id number]-oqi [id number] Care O (unspecified) [employer] [id number] [id number] 2.840.1.081403.3.57[id number] 2.840.1.443488.3.57[id number] 2.0.1.105172.3.57[id number] 2.0.1.958316.3.57[id number] 2.840.1.685464.3.57[id number] 2..1.392677.3.57[id number] 2.0.1.161231.3.57[id number] 2..1.646711.3.579.[id number] 2.0.1.066625.3.57[id number] 2..1.910155.3.579.[id number] 2.0.1.573412.3.579.[id number] 2.0.1.570242.3.579.2.687714-57-4270Obnwoke Health [id number] 2.0.1.173590.19Private Health [id number] 85o2908t-[id number]-[id number] 2.16.840.1.219237.3.579.2.531 Social History DateTypeDetailFacilityUnknown if ever smokedTuntutuliak [employer] Other Sex Assigned At [facility] [employer] Other Start: 10-11-2023 End: 48-14-0264Zevbxgp smoking status NHISNever smoked tobacco (finding) [facility]: 88-00-6098Szx Assigned At [facility]FeMer[facility] Hospitaltart: 07-10-2024 End: 02-97-3798IjfCbxylb (finding)[facility] CenterTobaveterans [facility] [place] smoking status NHISTobacco smoking consumption unknownUniversity of Missouri Children's HospitalStart: 58-97-8665Hqs assigned at birthNot on [facility] South HospitalStart: 63-78-3782Skn [facility] Clinical Notes 09-28-2020 to 06-23-2025 Note Date & RcihFeuvUmbtxlek42-18-5746 History of Present illness Narrative* Isabel Kincaid, [...] nursing note reviewed. Exam conducted with a insurance claim representative present. Vitals: Estimated body mass index is [...] of: Sandy Garza DO documented in this encounterUniversity of Missouri Children's HospitalWfhrufevyj84-66-4891 History of Present illness Narrative* Isabel Kincaid [...] nursing note reviewed. Exam conducted with a insurance claim representative present. Vitals: There is no height or [...] of: Sandy Garza DO documented in this encounterUniversity of Missouri Children's HospitalKptpjdzmcp87-96-5471 Evaluation note* Diagnosis Onset Date Resolution Status Admit Date Abdominal pain acuteAugust 2024 4:08pmADPKD (autosomal dominant polycystic kidney disease)acuteAugust 2024 4:08pmCKD (chronic kidney disease) stage 4, GFR 15-29 ml/minacuteAugust 2024 4:08pmFactor V LeidenacuteAugust 2024 4:08pmHypertensive chronic kidney disease with stage 1 through stage 4 chronic kiacuteAugust 2024 4:08pm [facility] Work Phone: 1(433) 131-974905-29-2025 Evaluation note* Diagnosis Onset Date Resolution Status Admit Date ADPKD (autosomal dominant polycystic 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) acuteMay 2024 4:03pmCKD (chronic kidney disease) stage 4, GFR 15-29 ml/min acuteMay 2024 4:03pmFactor V LeidenacuteMay 2024 4:03pmHypertensive chronic kidney disease with stage 1 through stage 4 chronic kiacuteMay 2024 4:03pmADPKD (autosomal dominant polycystic kidney disease)acuteAugust 2024 4:08pmCKD (chronic kidney disease) stage 4, GFR 15-29 ml/minacuteAugust 2024 4:08pmFactor V LeidenacuteAugust 2024 4:08pmHypertensive chronic kidney disease with stage 1 through stage 4 chronic kiacuteAugust 2024 4:08pm [facility] Work Phone: 1(319) 250-583411-21-2024 Evaluation note* Diagnosis Onset Date Resolution Status [...] through stage 4 chronic kiacuteFebruary 2024 3:29pm [facility] Work Phone: 1(134) 411-489411-09-2023 Evaluation note* Encounter Date Diagnosis Assessment Notes [...] She was informed that they may need WOUND CARE RN in near future. Will refer to transplant [...] more than 140s. She has no proteinuria. 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 Will refer to transplant [...] more than 40s. She has no proteinuria. [email or web address] Other 05-04-2023 Evaluation note* Encounter Date Diagnosis [...] She was informed that they may need WOUND CARE RN in near future. Will refer to transplant [...] has normal calcium, phosphorus and intact PTH. 04 May, 2023Factor V Leiden (ICD-10 - D68.51)Patient has been [...] more than 140s. She has no proteinuria. [email or web address] Other 02-09-2023 Evaluation note* Encounter Date Diagnosis [...] She was informed that they may need WOUND CARE RN in near future. Will refer to transplant [...] to check blood pressure at my office. [email or web address] Other 11-17-2022 Evaluation note* Encounter Date Diagnosis [...] She was informed that they may need WOUND CARE RN in near future. Will refer to transplant [...] She has no bleeding events or hematuria. [email or web address] Other 08-04-2022 Evaluation note* Encounter Date Diagnosis [...] She was informed that they may need WOUND CARE RN in near future. Will refer to transplant [...] She has no bleeding events or hematuria. 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 - Q61.3) [email or web address] Other evaluation noteNort [employer] Other evaluation noteNo InformationNopershing memorial hospital [employer] Other Evaluation note* Diagnosis Onset Date Resolution Status ADPKD (autosomal dominant polycystic 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) acuteCKD stage G4/A3, GFR 15-29 and albumin creatinine ratio >300 mg/gacute Factor V ZhkehtnxaffIGN-JEUW-[id number] [place] [address] Work Phone: Evaluation note* Diagnosis Onset Date Resolution Status ADPKD (autosomal dominant polycystic 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) acuteCKD stage G4/A3, GFR 15-29 and albumin creatinine ratio >300 mg/gacute Factor V TqvxwrcxkqhVSP-FTUC-[id number] kidney diseasenoneactive ADPKD (autosomal dominant polycystic kidney disease)acuteCKD (chronic kidney disease) stage 4, GFR 15-29 ml/minacuteCKD stage G4/A3, GFR 15-29 and albumin creatinine ratio >300 mg/gacuteFactor V WogldoampwxTJK-BEQJ-[id number] Polycystic dysplastic kidneyMer[facility] Work Phone: Evaluation note* Diagnosis Onset Date Resolution Status Admit Date ADPKD (autosomal dominant polycystic 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) acuteNovember 2023 3:50pmCKD (chronic kidney disease) stage 4, GFR 15-29 ml/minacuteNov2023 3:50pmFactor V LeidenacuteNov2023 3:50pmHypertensive chronic kidney disease with stage 1 through stage [address]uteNov2023 3:50pm [facility] Work Phone: Evaluation note* Diagnosis Onset Date Resolution Status Admit Date ADPKD (autosomal dominant polycystic 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) acuteJanuary 15, 2025 4:03pmCKD (chronic kidney disease) stage 4, GFR 15-29 ml/min acuteJanuary 15, 2025 4:03pmFactor V LeidenacuteMay 2024 4:03pmHypertensive chronic kidney disease with stage 1 through stage 4 chronic kiacuteJanuary 15, 2025 4:03pm [facility] Work Phone: Evaluation note* Diagnosis Pelvic pain in female Unspecified symptom associated with female genital organs Uterine leiomyoma, unspecified location [facility] this [facility] Diagnosis Uterine leiomyoma, unspecified location Menorrhagia with regular cycle Request for sterilization documented in this encounter [facility] HealthcareHistory general N[facility]ative - [facility] [employer] Other History general Narrative - Reported* Type Description Date Medical History PCOS Medical Historyprevious blood clot in leg X 2Medical HistoryCAPILLARY HEMANGIOMA Medical HistoryFACTOR V LEIDEN MUTATIONSurgical HistoryWISDOM TEETH X4 Hospitalization HistoryCHILD X 2Hospitalization HistoryBLOOD CLOT [email or web address] Other History general Narrative - Reported* Type Description Date Medical History PCOS Medical Historyprevious blood clot in leg X 2Medical HistoryCAPILLARY HEMANGIOMA Medical HistoryFACTOR V LEIDEN MUTATIONSurgical HistoryWISDOM TEETH O5Kmlkymzz HistoryEVLT ON RIGHT LEGHospitalization HistoryCHILD X 2Hospitalization HistoryBLOOD [employer] Other Reason for referral (narrative)No reason for referral information availableSt. 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, GFR 15-29 and albumin creatinine ratio >300 mg/g Factor V Leiden [id number] Chief Complaint RENAL 3 MONTH F/U RENAL 3 MONTH F/UReason for VisitADPKD (autosomal dominant polycystic kidney disease) CKD stage G4/A3, GFR 15-29 and albumin creatinine ratio >300 mg/g Factor V Leiden [id number] Polycystic kidney disease ADPKD (autosomal dominant polycystic kidney disease) CKD (chronic kidney disease) stage 4, GFR 15-29 ml/min CKD stage G4/A3, GFR 15-29 and albumin creatinine ratio >300 mg/g Factor V Leiden [id number] Polycystic dysplastic kidney Chief Complaint Admit Date [...] 4 chronic ki April 09, 2025 4:08pm Chief Complaint Admit Date RENAL 3 MONTH F/U April 09, 2025 4: 08pm Unknown June 23, 2025 1 :00pm Reason for Visit Admit Date Abdominal pain April 09, 2025 4: 08pm ADPKD (autosomal dominant polycystic [...] section and content) DATE CREATED AUTHOR 09/06/2019 [facility] DATE CREATED AUTHOR AUTHOR'S ORGANIZ ATION 12/17/2022 [facility] DATE CREATED AUTHOR AUTHOR'S ORGANIZ ATION 06/25/2025 [facility] EPIC DATE CREATED AUTHOR AUTHOR'S ORGANIZ ATION 06/26/2025 [facility] REASON FOR VISIT (unrecogniz ed section and content) ReasonCommentsDiscuss Pelvic PainReasonCommentsEMBX Care Teams (unrecognized sec tion and content) Team Status: Active Member Role Status Sheridan Ortiz MD Primary Care Provider Active Team Status: Inactive Member Role Status Sheridan Ortiz MD Primary Care Provider Active Start: October 11, 2023 End: October 11, 2023Ashwini Medina ProviderActiveStart: October 11, 2023 End: October 11, 2023 Team Status: Active Member Role Status Sheridan Ortiz MD Primary Care Provider Active Start: October 11, 2023 Ashwini Medina ProviderActiveStart: October 11, 2023 Team Status: Inactive Member Role Status Sheridan Ortiz MD Primary Care Provider Active Start: January 10, 2024 End: January 10, 2024Ashwini Medina ProviderActiveStart: January 10, 2024 End: January 10, 2024 Team Status: Active Member Role Status Sheridan Ortiz MD Primary Care Provider Active Start: March 20, 2024 Ashwini Medina ProviderActiveStart: March 20, 2024 Team Status: Inactive Member Role Status Sheridan Ortiz MD Primary Care Provider Active Start: March 27, 2024 End: March 27, 2024Ashwini Medina ProviderActiveStart: March 27, 2024 End: March 27, 2024 Team Status: Inactive Member Role Status Sheridan Ortiz MD Primary Care Provider Active Start: July 10, 2024 End: July 10, 2024Ashwini Medina ProviderActiveStart: July 10, 2024 End: July 10, 2024 Team Status: Inactive Member Role Status Dates Maren Ortiz MD Primary Care Provider Active Start: October 02, 2024 End: October 02, 2024Ashwini Medina ProviderActiveStart: October 02, 2024 End: October 02, 2024 Team Status: Inactive Member Role Status Dates Maren Ortiz MD Primary Care Provider Active Start: January 15, 2025 End: January 15, 2025EssAshwini Quintana ProviderActiveStart: January 15, 2025 End: January 15, 2025 Team Status: Inactive Member Role Status Dates Maren Ortiz MD Primary Care Provider Active Start: April 09, 2025 End: April 09, 2025Ashwini Medina ProviderActiveStart: April 09, 2025 End: April 09, 2025Team MemberRelationshipSpecialtyStart DateEnd Date Maren Ortiz MD [address] [facility] [place] [address] [facility] - [facility]05/05/25Team MemberRelationshipSpecialtyStart DateEnd Date Maren Ortiz MD [address] [place] [address] [facility]CP - [facility]Saint [facility]05/05/25Team MemberRelationshipSpecialtyStart DateEnd Date Maren Ortiz MD [address] [facility] [place] [address] [facility]05/05/25 Team Status: Inactive Member Role/Relationship Status Dates Maren Ortiz MD Primary Care Provider Active Start: April 09, 2025 End: April 09, 2025EssAshwini Quintana ProviderActiveStart: April 09, 2025 End: April 09, 2025 Team Status: Inactive Member Role/Relationship Status Dates Sandy Garza DO Attending Provider Active Start : June 23, 2025 End: June 23, 2025 Goals (unrecognized section and content) Goals [...] BE BASED ON THE PRIMARY CLINICAL RECORDS. [employer] [facility]. provides no warranty or guarantee of the accuracy or completeness of information in this document.
== END 2025-06-23 13:02 | disposition home or self-care (01) ==
LOC: LAB 13:01
PROVIDERS: PCP Family Medicine; Visit Provider Obstetrics & Gynecology
DX: D25.9 Leiomyoma of uterus, unspecified (principal)

== ENCOUNTER 2025-06-23 14:31 | Outpatient (OUT) | payer OTHER, SELFPAY ==
--- OUTSIDE RECORDS SUMMARY | 2025-06-23 13:30 | XMS_ITS | Encounter Summary ---
Author Organization [facility] Address [address] [place] [address] Care Team Providers Care Adult Services Librarian Name Role Phone Maulik James MD Primary Care Provider [phone] Reason for Visit * ReasonCommentsEMBX Encounter Details DateTypeDepartmentCare Team (Latest Contact Info)Bukthluqwyr68/04/2025 1:30 PM ESTProcedure Visit [facility] [address] [place] [address] Tin Garza DO [address] [facility] [address] [place], [place] [phone] Uterine leiomyoma, unspecified location; Menorrhagia with regular cycle; Request for sterilization Social History Tobacco UseTypesPacks/DayYears UsedDateSmoking Tobacco: Never Assessed CommentsNoSex and Gender InformationValueDate RecordedSex Assigned at BirthNot on fileLegal KcgRyihpk50/15/2023 11:47 PM EDTGender IdentityNot on fileSexual OrientationNot on filedocumented as of this encounter Last Filed Vital Signs Vital SignReadingTime TakenCommentsBlood Dqazbvjw950/80108/23/2024 1:49 PM EST Pulse--Temperature--Respiratory Rate--Oxygen Saturation--Inhaled Oxygen Concentration--Vrgbwx48.4 kg (175 lb)06/23/2025 1:49 PM EURZudcog043 cm (5' 3 ) 06/23/2025 1:49 PM ESTBody Mass Xstet992006/23/2025 1:49 PM ESTdocumented in this encounter Progress [...] nursing note reviewed. Exam conducted with a final cleaner present. Vitals: Estimated body mass index is [...] Plan of Treatment DateTypeDepartmentCare Team (Latest Contact Info)Bvikhheordo78/04/2025 8:00 AM ESTAncillary Procedure [facility] [address] [place] [place] [address] 08/05/2025 2:40 PM ESTConsult [facility] [address] [place] [place] [phone] Tin Garza DO [address] [facility] [place] [address] NameTypePriorityAssociated DiagnosesOrder ScheduleTissue examPathology and CytologyRoutine Uterine leiomyoma, unspecified location Ordered: 06/23/2025documented as of this encounter Procedures Procedure NamePriorityDate/TimeAssociated DiagnosisCommentsENDOMETRIAL BIOPSY Gtymphw4906/23/2025 2:09 PM EST Uterine leiomyoma, unspecified location Menorrhagia with regular cycle POCT , IZTCBPnkznpd44/04/2025 1:55 PM EST Menorrhagia with regular cycle [...] Location / LateralityCollection Method / VolumeCollection TimeReceived DrljTixoj48/04/2025 1:55 PM EST Narrative Authorizing ProviderResult TypeResult StatusTin Garza DOPOINT OF CARE TEST ENTER/EDIT ORDERABLESFinal Result documented in this encounter Visit Diagnoses Diagnosis Uterine leiomyoma, unspecified location Menorrhagia with regular cycle Request for sterilization documented in this encounter Care Teams Team MemberRelationshipSpecialtyStart DateEnd Date Maulik James MD [address] [place] [address] PCP - GeneralFamily Medicine05/05/25documented as of this encounter
--- OUTSIDE RECORDS SUMMARY | 2025-06-23 14:33 | XMS_ITS | Clinical Summary ---
Author Organization [facility] Address [address] [place], [place] [address] Care Team Providers Care Pantry Goods Maker Name Role Phone Maulik James MD Primary Care Provider [phone] Timothy Mills Unavailable [phone] Allergies Active AllergyReactionsCriticalityNoted DateComments Sulfamethoxazole-TrimethoprimRash,Hives09/04/2019 Medications MedicationSigDispense QuantityRefillsLast FilledStart DateEnd DateStatus rivaroxaban (XARELTO) 20 mg tablet Take 20 mg by mouth once daily.Active cetirizine (ZYRTEC) 10 mg tablet Take 10 mg by mouth once daily.Active ferrous sulfate (IRON ORAL) Take 65 mg by mouth once daily.Active Family History Medical HistoryRelationCommentsBlood ClotsBrotherBlood ClotsFatherRelationStatus CommentsBrotherFactor VIFatherAlivepolycystic diseaseMotherAlive Social History Tobacco UseTypesPacks/DayYears UsedDateSmoking Tobacco: NeverSmokeless Tobacco: NeverAlcohol UseStandard Drinks/WeekCommentsYes0 (1 standard drink = 0.6 oz pure alcohol)SociallyPHQ-2AnswerDate RecordedPHQ-2 Tcdzj279CommentsNo Sex and Gender InformationValueDate RecordedSex Assigned at BirthNot on file Legal CdzOsvrbn52/25/2019 8:12 AM EDTGender IdentityNot on fileSexual OrientationNot on file Last Filed Vital Signs Vital SignReadingTime TakenCommentsBlood Fzeqwiqp767/66009/04/2019 3:57 PM EST Tyqji702609/04/2019 3:57 PM NXCZddavcjqrcn00.4 ??C (97.6 ??F)09/04/2019 3:57 PM ESTRespiratory Dycw542709/04/2019 3:57 PM ESTOxygen Lvfriwgfka802%09/04/2019 3:57 PM ESTInhaled Oxygen Concentration--Zgftjy83.2 kg (181 lb 3.2 oz)09/04/2019 3:57 PM EUNTsvvqe056.6 cm (5' 5.98 )09/04/2019 3:57 PM ESTBody Mass Index29.26 09/04/2019 3:57 PM EST Plan of Treatment Health MaintenanceDue DateLast DoneCommentsAnxiety Jmavjvkdj79/10/2000Depression Vxxqtdisw47/10/2000HIV Ewmasrgdq71/10/2000Hepatitis C Wkpjelpor22/10/2000 DTaP,Tdap,Td Vaccine (1 - Tdap)2000Hepatitis B Vaccine (1 of 3 - 19+ 3- dose series)2000Cervical Cancer Ezasltgfc88/10/2003HPV Vaccine (1 - 3-dose SCDM series)2008Mammogram Dsxtibdsg08/10/2022Covid-19 Vaccine ( - season)2025Influenza Vaccine (#1)2025 Insurance * Guarantor: Aroldo Brock TypeRelation to PatientDate of BirthPhone Billing AddressPersonal/TyyfxjMnph64/10/1981 [address] [place] [address] Care Teams Team MemberRelationshipSpecialtyStart DateEnd Maulik James MD PCP - GeneralFamily Gzatehtj54/25/19 Timothy Mills [address] [place] [address] [place] [address] MdulisainPhnuoxxfzn44/25/19
--- OUTSIDE RECORDS SUMMARY | 2025-06-23 14:34 | XMS_ITS | Patient Health Record ---
Author Organization [facility] in [place] Address [address] [place] [address] Care Team Providers Care Flower Picker Name Role Phone Jovon Ortiz Primary Care Provider Allergies Allergen (clinical drug ingredient) Drug/Non Drug Allergy documented on EMR Reaction Allergy Type Onset Date Status Substance with sulfonamide s tructure and antibacterial mechanism of action (substance) Sulfa Antibiotics hives Drug Allergy Active Results Component Value Reference Range Notes PHOSPHORUS Reviewed date:07/04/2024 06:30:20 AM Interpretation: Performing Lab: Notes/Report: [facility] , Phosphorus 4.6 2.6-4.7 mg/dL Performing Lab:see noteML - [facility] LBPROF 14(COMP METB) Reviewed date:07/04/2024 06:30:20 AM Interpretation: Performing Lab: Notes/Report: [facility] ,Zqojsq625007-925 mmol/LPotassium4.53.5-5.1 mmol/ALcrbbach09453-891 mmol/LCarbon Wzuwyfh77.421.0-32.0 mmol/LAnion Gap17.9Mbkcfcg6452-204 mg/dLBlood Urea Nitrogen 38.07.0-18.0 mg/dLCreatinine2.360.55-1.02 mg/dLEstimated GFR ( Hhwtavh01 >=60 mL/min/1.73m 2Estimated GFR (Non- Ame23>=60 mL/min/1.73m 2BUN Creatinine Ratio16.2Pbnstdz3.08.5-10.1 mg/dLBilirubin Total0.30.2-1.0 mg/dL Aspartate Amino Blfhwphqlec7980-01 U/LAlanine Olrihcsavduuvbfd8766-29 U/L Alkaline Stdnccouvkx2983-178 U/LTotal Protein7.36.4-8.2 g/dLAlbumin Level4.03.4- 5.0 g/dLGlobulin3.3Albumin Globulin Ratio1.2Performing Lab:see note - [facility] LBPHOSPHORUS Reviewed date:09/24/2024 05:05:08 PM Interpretation: Performing Lab: Notes/Report: [facility] ,Phosphorus3.82.6-4.7 mg/dLPerforming Lab:see note - [facility] LB PROF 14(COMP METB) Reviewed date:09/24/2024 05:05:08 PM Interpretation: Performing Lab: Notes/Report: [facility] ,Jthuxi540751-808 mmol/LPotassium3.73.5-5.1 mmol/WEousefdp83755-914 mmol/LCarbon Sdmolju66.721.0-32.0 mmol/LAnion Gap15.3Mdsxjjp2359-967 mg/dLBlood Urea Nitrogen 30.07.0-18.0 mg/dLCreatinine3.030.55-1.02 mg/dLEstimated GFR ( Jqrthva54 >=60 mL/min/1.73m 2Estimated GFR (Non- Ame17>=60 mL/min/1.73m 2BUN Creatinine Ratio9.9Qbqpehd9.88.5-10.1 mg/dLBilirubin Total0.30.2-1.0 mg/dL Aspartate Amino Vfbtwdujgep0544-30 U/LAlanine Yozlxzqngahwkjkd0615-43 U/L Alkaline Oohobmnqsio4743-914 U/LTotal Protein7.76.4-8.2 g/dLAlbumin Level4.03.4- 5.0 g/dLGlobulin3.7Albumin Globulin Ratio1.1Performing Lab:see note - [facility] LBCBC no Diff (Hemogram) Reviewed date:09/24/2024 05:05:08 PM Interpretation: Performing Lab: Notes/Report: [facility] ,White Blood Count8.04.0-11.0 10 3/uLRed Blood Count4.644.20-5.40 10 6/uL Zexdhdunhg08.412.0-16.0 g/tBDpxcxicsmf50.836.0-48.0 %Mean Corpuscular Hvhsfk87.1 81.0-99.0 fLMean Corpuscular Orbklydkuu76.926.7-34.0 pgMean Corpuscular HGB Conc 32.129.9-35.2 g/dLRed Cell Distribution Width13.211.0-15.0 %Platelet Uyuir677 150-450 10 3/uLMean Platelet Cnbhcm21.19.5-13.5 fLPerforming Lab:see note - [facility] LBPTH, Intact Reviewed date:09/25/2024 12:50:08 PM Interpretation: Performing Lab: Notes/Report: [facility] ,PTH, Tpgczq76217-80 pg/mL Riveter: Zen Perez PhD, Phone: [phone] Performed at: - [facility] [address] [id number] Performing Lab:see note - [facility] LBPHOSPHORUS Reviewed date:04/04/2025 04:49:24 PM Interpretation: Performing Lab: Notes/Report: [facility] ,Phosphorus3.52.6-4.7 mg/dLPerforming Lab:see note - [facility] LB PROF 14(COMP METB) Reviewed date:04/04/2025 04:49:24 PM Interpretation: Performing Lab: Notes/Report: [facility] ,Rmlecv785033-164 mmol/LPotassium4.63.5-5.1 mmol/ZDesmvnue44087-600 mmol/LCarbon Guthifb93.021.0-32.0 mmol/LAnion Gap15.2Spgsykm43609-399 mg/dLBlood Urea Vqjsfbli65.07.0-18.0 mg/dLCreatinine2.660.55-1.02 mg/dLEstimated GFR ( Jqqyonw99>=60 mL/min/1.73m 2Estimated GFR (Non- Ame20>=60 mL/min/1.73m 2 BUN Creatinine Ratio12.4Osjwgdu0.08.5-10.1 mg/dLBilirubin Total0.80.2-1.0 mg/dL Aspartate Amino Inypplerbhq1615-50 U/LAlanine Zjkvlzdwbvxlymvn0886-12 U/L Alkaline Kbitxkhmxuq6799-461 U/LTotal Protein7.66.4-8.2 g/dLAlbumin Level3.73.4- 5.0 g/dLGlobulin3.9Albumin Globulin Ratio0.9Performing Lab:see note - [facility] LBCBC no Diff (Hemogram) Reviewed date:04/04/2025 04:49:24 PM Interpretation: Performing Lab: Notes/Report: [facility] ,White Blood Count13.64.0-11.0 10 3/uLRed Blood Count4.584.20-5.40 10 6/uL Dnyoxmofzg71.412.0-16.0 g/qMMgtaywlxml83.236.0-48.0 %Mean Corpuscular Endcxl18.0 81.0-99.0 fLMean Corpuscular Nydclirvnj96.326.7-34.0 pgMean Corpuscular HGB Conc 32.529.9-35.2 g/dLRed Cell Distribution Width13.211.0-15.0 %Platelet Kptfo600 150-450 10 3/uLMean Platelet Eqpuwm79.19.5-13.5 fLPerforming Lab:see note - [facility] LBPTH, Intact Reviewed date:04/05/2025 01:20:20 PM Interpretation: Performing Lab: Notes/Report: [facility] ,PTH, Afjtbc50813-43 pg/mL Riveter: Zen Perez PhD, Phone: [phone] [address] [place], [place] [phone] Performed at: - [facility] [place] Performing Lab:see noteLC - [facility] LBUS pelvis w/ transvaginal Reviewed date:04/16/2025 12:41:12 PM Interpretation: Performing Lab: Notes/Report: Source Facility: [facility] [place] [address] [place] [address] Ultrasound Report Signed Patient: BRYON BROCK MR#: [id number] : 1980 Acct:[id number] Age/Sex: 44 / F ADM Date: 04/16/25 Loc: US Attending Dr: Maren Ortiz M.D. Ordering Physician: Maren Ortiz M.D. Date of Service: 04/16/25 Procedure(s): US pelvis w/ transvaginal Accession Number(s): [id number] cc: Maren Ortiz M.D. [place] [id number] Patient Name: BRYON BROCK MRN: [id number] date: 1980 Sex: F Assigned Patient Location: US Current Patient Location: US Accession/Order Number: [id number] Exam Date: 04/16/2025 08:25 Report Date: 04/16/2025 [...] Frausto M.D. 04/16/2025 10:40 AM Dictation Location: [place] [address] Electronically authenticated by: [id number] Y Date: 04/16/2025 10:40 Dictated By: Bryon Frausto M.D. Signed By: 04/16/25 1042 DD/ 1040 TD/TT: Overhead Crane Inspector: 14(COMP METB) Reviewed date:06/19/2025 01:03:42 PM Interpretation: Performing Lab: Notes/Report: [facility] ,Yjoxix092467-028 mmol/LPotassium5.03.5-5.1 mmol/JEdyrsbim92141-565 mmol/LCarbon Xxexprt62.121.0-32.0 mmol/LAnion Gap16.0Oyflwkw7928-469 mg/dLBlood Urea Nitrogen 28.07.0-18.0 mg/dLCreatinine2.670.55-1.02 mg/dLEstimated GFR ( Eicgcqb87 >=60 mL/min/1.73m 2Estimated GFR (Non- Ame19>=60 mL/min/1.73m 2BUN Creatinine Ratio10.8Rdnjxcw3.18.5-10.1 mg/dLBilirubin Total0.40.2-1.0 mg/dL Aspartate Amino Wmxgzpulymn9672-50 U/LAlanine Nociauvduelhknuj3821-69 U/L Alkaline Sdhhltqkkhi1010-920 U/LTotal Protein7.36.4-8.2 g/dLAlbumin Level4.23.4- 5.0 g/dLGlobulin3.1Albumin Globulin Ratio1.4Performing Lab:see noteML - [facility] LBPROF CHEM 8 (BAS METB) Reviewed date:10/13/2024 08:13:35 PM Interpretation: Performing Lab: Notes/Report: [facility] ,Crarry084366-941 mmol/LPotassium4.03.5-5.1 mmol/TByrwbhhm66502-465 mmol/LCarbon Dcvheun40.521.0-32.0 mmol/LAnion Gap12.4Jsbczof40360-693 mg/dLBlood Urea Dcbptzkz18.07.0-18.0 mg/dLCreatinine2.520.55-1.02 mg/dLEstimated GFR ( Okbdplj09>=60 mL/min/1.73m 2Estimated GFR (Non- Ame21>=60 mL/min/1.73m 2 BUN Creatinine Ratio11.1Gmmuxcw3.18.5-10.1 mg/dLPerforming Lab:see note - [facility] LBPTH, Intact Reviewed date:07/06/2024 01:52:52 PM Interpretation: Performing Lab: Notes/Report: [facility] ,PTH, Qfkiug4673-84 pg/mL Performed at: [facility] Riveter: Zen Perez PhD, Phone: [phone] [address] [place], [place] [phone] [facility]forming Lab[facility] - [facility] LBCBC no Diff ([facility]emogram) Reviewed date:01/06/2025 08:17:47 PM Interpretation: Performing Lab: Notes/Report: [facility] ,White Blood Count10.74.0-11.0 10 3/uLRed Blood Count4.494.20-5.40 10 6/uL Qtcpbihcjx80.212.0-16.0 g/qRCzexctbcdv79.336.0-48.0 %Mean Corpuscular Obibww01.8 81.0-99.0 fLMean Corpuscular Hlulssxpyl67.426.7-34.0 pgMean Corpuscular HGB Conc 32.829.9-35.2 g/dLRed Cell Distribution Width13.511.0-15.0 %Platelet Dnyll220 150-450 10 3/uLMean Platelet Thicxp11.79.5-13.5 fLPerforming Lab:see note - [facility] LBPROF 14(COMP METB) Reviewed date:01/06/2025 08:17:47 PM Interpretation: Performing Lab: Notes/Report: [facility] ,Neeyup085450-899 mmol/LPotassium3.73.5-5.1 mmol/VTldulovc91081-108 mmol/LCarbon Ggdjjol91.221.0-32.0 mmol/LAnion Gap15.8Okezpcl2249-651 mg/dLBlood Urea Nitrogen 32.07.0-18.0 mg/dLCreatinine2.220.55-1.02 mg/dLEstimated GFR ( Itjkepx26 >=60 mL/min/1.73m 2Estimated GFR (Non- Ame24>=60 mL/min/1.73m 2BUN Creatinine Ratio14.3Gvutmwm5.18.5-10.1 mg/dLBilirubin Total0.30.2-1.0 mg/dL Aspartate Amino Jdkjweprrft8609-64 U/LAlanine Oufbbqrmxquennkm8123-38 U/L Alkaline Ezzbwenlsly6644-228 U/LTotal Protein7.36.4-8.2 g/dLAlbumin Level4.03.4- 5.0 g/dLGlobulin3.3Albumin Globulin Ratio1.2Performing Lab:see note - [facility] LBPHOSPHORUS Reviewed date:01/06/2025 08:17:47 PM Interpretation: Performing Lab: Notes/Report: [facility] ,Phosphorus4.92.6-4.7 mg/dLPerforming Lab:see note - [facility] LB PTH, Intact Reviewed date:01/07/2025 05:49:00 PM Interpretation: Performing Lab: Notes/Report: [facility] ,PTH, Ywkjdv3400-13 pg/mL Riveter: Zen Perez PhD, Phone: [phone] [address] [place], [place] [phone] Performed at: [facility] [place] Performing Lab:see note - [facility] LB Reason For Referral No Information [...] containing alcohol in the past year?Weekly (3 points)Rveeis3Woodaxnzcwvbhf PositiveAUDIT-C (Standard) Question Answer Notes Did you [...] Problem Chronic peripheral v enous hypertension (disorder) (906098288) Chronic venous hypertension (idiopathic) without complications of unspecified lower extremity (I87.309) ActiveconfirmedProblemFactor V Leiden mutation (182003040)Factor V Leiden mutation (D68.51)ActiveconfirmedProblemPain in left leg (715151276)Left leg pain (M79.605)ActiveconfirmedProblemCellulitis (258699109)Cellulitis (L03.90)Active confirmedProblemPolycystic kidney disease (98224452)Polycystic kidney disease (Q61.3)ActiveconfirmedProblemAcute urinary tract infection (785335872)Acute UTI (N39.0)ActiveconfirmedProblemLeft lower quadrant pain (085361603)Left lower quadrant abdominal pain (R10.32)Activeconfirmed Vital Signs Blood pressure diastolic 80 mm Hg 04/06/2025 Ouqqhj66 in04/06/2025lood pressure zlxlhrbi275 mm Hg04/06/20251622Lztghs122.4 lbs 04/06/2025BMI29.44 kg/m204/06/2025 Encounters Encounter Location Date Provider Diagnosis [facility] [address] [place] [address] 08/04/2024 Jovon Hoy Acute UTI N39.0 [facility] [address] [place] [address] 04/06/2025 Jovon Hoy Left lower quadrant abdominal pain R10.32 [facility] [address] [place] [address] 04/04/2025 Jovon Hoy [facility] [place] [address] 04/16/2025Doug Hoy Assessments Encounter Date Diagnosis (ICD Code) Assessment [...] Insured Coverage Start Date Coverage End Date BERNADETTE VAZQUEZ [address] [place] [address] [id number] Alfa Brock Spouse - patient is the spouse of the insured Medications Administered Medication Instructions Date of Administration Dosage Notes Ceftriaxone 1 gram g1 gram Medical (General) History Medical History History ICD Code Factor V Leiden mutation D68.51 Near syncope R55 Polycystic kidney disease Q61.3 DVT (deep venous thrombosis) I82.409 Surgical History Surgery Date(Month/Year) VC INJ foam sclerosant [facility]ER 07/12
--- OUTSIDE RECORDS SUMMARY | 2025-06-23 14:34 | XMS_ITS | Clinical Summary ---
Author Organization [facility] Address [address] [facility] [place] [address] Care Team Providers Care Ore Miner Name Role Phone Maulik James MD Primary Care Provider [phone] Allergies Active AllergyReactionsCriticalityNoted DateCommentsSulfa AntibioticsHives,Rash Low04/09/2025 Other Reaction(s): rash Sulfamethoxazole-TrimethoprimHives,YmjqAnw5309/04/2019 Medications MedicationSigDispense QuantityRefillsLast FilledStart DateEnd DateStatus Xarelto 20 MG tablet TAKE 1 TABLET BY MOUTH EVERY DAY; Duration: 90Active pantoprazole (ProtoNix) 40 MG EC tablet TAKE 1 TABLET BY MOUTH EVERY DAY; Duration: 90Active cetirizine (ZyrTEC) 10 MG chewable tablet 1 (one) time each day at the same timeActive Tolvaptan (Jynarque) 90 & 30 MG tablet therapy pack as directed OrallyActive Tolvaptan 60 & 30 MG tablet therapy pack 5Active Encounters DateTypeDepartmentCare VhprPcxzwwcpvcn06/04/2025 1:30 [place] [address] Tin Garza DO Uterine leiomyoma, unspecified location; Menorrhagia with regular cycle; Request for uhludorfbmzvb31/18/2025[place] [address] Tin Garza DO 05/05/2025 1:40 [place] [address] Tin Garza DO Pelvic pain in female; Uterine leiomyoma, unspecified ematuqym41/16/2025amboo flowsheet [facility] [address] [place] [address] Tin Garza DO 5Abstract [facility] [address] [place] [address] Tin Garza DO from Last 3 Months Social History Tobacco UseTypesPacks/DayYears UsedDateSmoking Tobacco: Never Assessed CommentsNoSex and Gender InformationValueDate RecordedSex Assigned at BirthNot on fileLegal VxtJljgpw85/15/2023 11:47 PM EDTGender IdentityNot on fileSexual OrientationNot on file Last Filed Vital Signs Vital SignReadingTime TakenCommentsBlood Awqmotvo233/80108/23/2024 1:49 PM EST Pulse--Temperature--Respiratory Rate--Oxygen Saturation--Inhaled Oxygen Concentration--Pqujax63.4 kg (175 lb)06/23/2025 1:49 PM HTKMklhdz474 cm (5' 3 ) 06/23/2025 1:49 PM ESTBody Mass Lmaox470806/23/2025 1:49 PM EST Plan of Treatment DateTypeDepartmentCare Team (Latest Contact Info)Evchuajarqw48/04/2025 8:00 AM ESTAncillary Procedure [facility] [address] [place] [address] 08/05/2025 2:40 PM ESTConsult [facility] [address] [place] [address] Tin Garza DO [address] [place] [address] Health MaintenanceDue DateLast DoneCommentsPap Smear2002Cervical Cancer Jjhvqxlxu83/10/2012HPV/Sdanrf0511/28/20110919Yqvcrbwhe19/10/2022COVID-19 Vaccine ( season), 05/04/2021Influenza Vaccine (#1)2025 07/09/2017, 06/29/2016Pneumococcal Vaccine: Pediatrics (0 to 5 Years) and At- Risk Patients (6 to 64 Years)Aged OutNo longer eligible based on patient's age to complete this topic Procedures Procedure NamePriorityDate/TimeAssociated DiagnosisCommentsENDOMETRIAL BIOPSY Padmyek8406/23/2025 2:09 PM EST Uterine leiomyoma, unspecified location Menorrhagia with regular cycle POCT , UEOOQIjmqflo75/04/2025 1:55 PM EST Menorrhagia with regular cycle POCT , ACVRGCpbpcvm77/22/2025 4:02 PM EDT Pelvic pain Encounter for biopsy from Last 3 Months Results * Endometrial biopsy (06/23/2025 2:09 PM EST) Narrative Isabel Kincaid LPN - 06/23/2025 2:09 PM EST Isabel [...] salpingectomy and endometrial ablation Authorizing ProviderResult TypeResult StatusCorey Greg [place] CLINIC/BEDSIDE ORDERABLESFinal Result * POCT , urine manually resulted (06/23/2025 1:55 PM EST) Only the most recent of2 resultswithin the time period is included. ComponentValueRef RangeTest MethodAnalysis TimePerformed AtPathologist Signature Preg Test, UrNegativeNegativeSpecimen (Source)Anatomical Location / Laterality Collection Method / VolumeCollection TimeReceived VfzsIzckt68/04/2025 1:55 PM EST Narrative Authorizing ProviderResult TypeResult StatusCorey Greg DOPOINT OF CARE TEST ENTER/EDIT ORDERABLESFinal Result from Last 3 Months Insurance Care Teams Team MemberRelationshipSpecialtyStart DateEnd Date Maulik James MD [address] [place] [address] PCP - [facility]05/05/25
--- OUTSIDE RECORDS SUMMARY | 2025-06-23 14:46 | XMS_ITS | CCD ---
Author Organization [facility] Care Team Providers Care Brush Filler Hand Name Role Phone Maeve Becerra Unavailable [...] DR MAREN GONZALEZ Admitting Unavailable DR MAREN GONZALEZ Primary Care Unavailable DR MAREN GONZALEZ Consulting [...] Unavailable Maren Ortiz MD Primary Care Provider [phone] Maeve Becerra MD Attending Provider Maren Ortiz MD Primary Care Provider [phone] SANDY GARZA Attending Unavailable Maren Ortiz MD Primary Care Provider [phone] Allergies Allergy ClassificationReported Allergen(s)Allergy TypeDate of OnsetReaction(s) Facility (19 sources)Sulfonamides (Antibiotic)Propensity to adverse reactionsMedical [facility] Other (3 sources)Sulfonamides (Antibiotic)Drug Wodqqxb18-07-9324[facility] ([facility] source)Sulfamethoxazole / TrimethoprimDrug Ozafypa74-28-8030TljgvS[facility] Medications Current Medications MedicationDrug Class(es)DatesSig (Normalized)Sig (Original)cetirizine hydrochloride 10 mg oral tablet (20 sources)Histamine-1 Receptor AntagonistStart: 00-55-9158lfxy 1 tablet by mouth once dailyCetirizine (Zyrtec) [...] Activepantoprazole 40 mg delayed release oral tablet (16 sources)Proton Pump InhibitorStart: 10-11-2023 End: 10-13-2023qubg 1 tablet by mouth once dailyPantoprazole 40 mg tablet,delayed release (DR/EC) Active 40 MG PO Daily March 27, 2024 4:26pm Complies with drug therapyStart: 10-11-2023 End: 10-19-9619Afwsrkpcimnl Discontinued MG PO October 11, 2023 1:00am March 27, 2024 4:27pmrivaroxaban 20 mg oral tablet (20 sources)Factor Xa InhibitorStart: 96-55-1777aulp 1 tablet by mouth once daily at mealtimeRivaroxaban 20 mg tablet Active 20 MG PO Daily October 11, 2023 1:00am FreeTextSi tablet with food Orally Once a day; Note: Source Status: Taking; Provider: Tiffanie Richardson Complies with drug therapytolvaptan (20 sources)Vasopressin V2 Receptor AntagonistStart: 36-64-6305Ywdtyuxdu 60 & 30 MG tablet therapy pack 06/18/2025 ActiveStart: 01-15-2025 End: 64-38-8826Wsfxpynzn (Polycys Kidney Dis) 60 mg (AM)/ 30 mg (PM) tablets, sequential Active 0 PO per package directions February 12, 2025 10:47am PO PER PKG DIR Complies with drug therapyStart: 07-10-2024 End: 42-29-9059Ctpjrnknm (Polycys Kidney Dis) (Jynarque) 45 mg (AM)/ 15 mg (PM) tablets, sequential Discontinued 0PO per package directions September 29, 2024 4:53pm January 15, 2025 4:50pm PO PER PKG DIRStart: 06-04-2024 End: 49-05-5351isfy 1 tablet by mouth every eight hours in the morningTolvaptan (Polycys Kidney Dis) (Jynarque) 90 mg (AM)/ 30 mg (PM) tablets, sequential Discontinued 0.ROUTE .COMPLEX June 04, 2024 4:44pm July 10, 2024 5:33pm TAKE ONE 90MG TABLET BY MOUTH UPON AWAKING, AND ONE 30MG TABLET BY MOUTH 8 HOURS LATERStart: 06-04-2024 End: 83-58-0823lbyp 1 tablet by mouth every eight hours in the morningTolvaptan (Polycys Kidney Dis) (Jynarque) 90 mg (AM)/ 30 mg (PM) tablets, sequential Discontinued 0.ROUTE .COMPLEX June 04, 2024 3:44pm July 10, 2024 4:33pm TAKE ONE 90MG TABLET BY MOUTH UPON AWAKING, AND ONE 30MG TABLET BY MOUTH 8 HOURS LATERStart: 04-07-2024 End: 06-36-3213rogd 1 tablet by mouth every eight hours in the morningTolvaptan (Polycys Kidney Dis) (Jynarque) 90 mg (AM)/ 30 mg (PM) tablets, sequential Discontinued 0.ROUTE .[facility] April 07, 2024 11:41am June 04, 2024 4:45pm TAKE ONE 90 MG TABLET BY MOUTH UPON WAKING, THEN TAKE ONE 30 MG TABLET BY MOUTH 8 HOURS LATER EVERY DAYStart: 04-07-2024 End: 49-02-0528pusu 1 tablet by mouth every eight hours in the morningTolvaptan (Polycys Kidney Dis) (Jynarque) 90 mg (AM)/ 30 mg (PM) tablets, sequential Discontinued 0.ROUTE .[facility] April 07, 2024 10:41am June 04, 2024 3:45pm TAKE ONE 90 MG TABLET BY MOUTH UPON WAKING, THEN TAKE ONE 30 MG TABLET BY MOUTH 8 HOURS LATER EVERY DAYStart: 04-06-2024 End: 48-46-0765vaff 1 tablet by mouth every eight hours in the morningTolvaptan (Polycys Kidney Dis) (Jynarque) 90 mg (AM)/ 30 mg (PM) tablets, sequential Discontinued 0.ROUTE .[facility] April 06, 2024 9:31am April 07, 2024 11:41am TAKE ONE 90 MG TABLET BY MOUTH UPON WAKING, THEN TAKE ONE 30 MG TABLET BY MOUTH 8 HOURS LATER EVERY DAYStart: 04-06-2024 End: 61-96-9436etgu 1 tablet by mouth every eight hours in the morningTolvaptan (Polycys Kidney Dis) (Jynarque) 90 mg (AM)/ 30 mg (PM) tablets, sequential Discontinued 0.ROUTE .[facility] April 06, 2024 8:31am April 07, 2024 10:41am TAKE ONE 90 MG TABLET BY MOUTH UPON WAKING, THEN TAKE ONE 30 MG TABLET BY MOUTH 8 HOURS LATER EVERY DAYStart: 10-11-2023 End: 74-17-2727Eaudvezkv (Polycys Kidney Dis) (Jynarque) 90 mg (AM)/ 30 mg (PM) tablets, sequential Discontinued 0PO per package directions [facility] December 23, 2023 11:04pm April 06, 2024 9:33am PO PER PKG DIRStart: 89-80-0427Jyawjuis 90 & 30 MG TAKE ONE 90 MG TABLET BY MOUTH UPON WAKING AND TAKE 30 MG TABLET 8 HOURS LAT ER Orally bid for 14 days Mar, Not-TakingStart: 09-14-2021 End: 93-87-9104Qnfqwsir 90 & 30 MG 90 mg QAM [...] Medications MedicationDrug Class(es)DatesSig (Normalized)Sig (Original)Triamcinolone (17 sources)CorticosteroidStart: 23-66-4259TYCNYYM - 10 mg Mar, 40 mg Problems Active Problems Problem ClassificationProblemDateDocumented DateEpisodic/ChronicAbdominal pain (2 sources)Pain in female pelvis; Translations: [Pelvic and perineal pain] 58-53-5462JmddyjtbFdmedv neoplasm of uterus (3 sources)Uterine leiomyoma; Translations: [Leiomyoma of uterus, unspecified] 02-28-2502IfkritasDglfeab kidney disease (20 sources)Chronic kidney disease stage 2; Translations: [Chronic kidney disease, stage 2 (mild)]Onset: 08-09-2021 Resolved: 99-69-1426JknokssRxfyaex on above:Renal function has been quite variable [...] Translations: [Activated protein C resistance]Onset: 08-09-2021 Resolved: 43-60-8099NppvakoIgoqsno on above:Patient has been on Xarelto for factor V. Leiden mutation. She has no recent blood clots. She has no bleeding events or hematuria.Contraceptive and procreative management (1 source)Sterilization requested; Translations: [Encounter for sterilization] 50-59-5081MrmmcwavQqenrhqrnrgzw congenital anomalies (20 sources)Multiple congenital cysts of kidney; Translations: [Polycystic kidney, unspecified]Onset: 08-09-2021 Resolved: 12-77-9127XdoycyrAgtfeij on above:She was started Jynarque 45 &30 [...] monthsand now being monitoring every 3-month started Jun2021 per manufacture recommendation. She wasinformed that they may need SWATCH CLERK in near future. Will refer to transplant evaluation once GFR < 20 ml/min. She does not have a donor.Hypertension with complications and secondary hypertension (19 sources)Chronic kidney disease due to hypertension; Translations: [Hypertensive chronic kidney disease withstage 1 through stage 4 chronic kidney disease, or unspecified chronic kidney disease]07-42-3587LjwtlxzEkqwgalum disorders (1 source)Menorrhagia; Translations: [Excessive and frequent menstruation with regular cycle]68-65-9368PahrvhrZebbf circulatory disease (4 sources)Elevated blood-pressure reading, without diagnosis of hypertension EpisodicOther screening for suspected conditions (not mental disorders or infectious disease) (4 sources)Encounter for screening mammogram for malignant neoplasm of breast; Translations: [ENC SCR MAMMO MALIG NEOPLASM BREAST]Onset: 10-41-9027Qyfuerlj Residual codes; unclassified (1 source)Family history of malignant neoplasm, unspecified; Translations: [FAM HX MALIGNANT NEOPLASM UNS]Onset: 79-49-4047Veybqzki Past or Other Problems Problem ClassificationProblemDateDocumented DateEpisodic/ChronicAcute and unspecified renal failure (2 sources)Acute kidney failure, unspecified; Translations: [ACUTE KIDNEY FAILURE UNSPECIFIED]Onset: 08-09-2021 Resolved: 57-84-5367RiummbxoNteyafpc; including migraine (1 source)HeadacheOnset: 08-09-2021 Resolved: 69-01-5665Rvljljqg Results Test NameValueInterpretationReference RangeFacilityEndometrial biopsyon 20-82-4549FkdkzIsabel Kincaid LPN 06/23/2025 2:19 PM Endometrial biopsy Date/Time: 06/23/2025 2:09 PM Performed by: Sandy Garza DO Authorized by: Sandy Garza DO Consent: Consent obtained: written Consent [...] be scheduled for bilateral salpingectomy and endometrial ablationFormerly Morehead Memorial HospitalHCG ( test) Ql (U)on 14-59-9120Mzupgmmsrnbhrv and review of laboratory resultsNormalMercy McCune-Brooks HospitalPre Test, UrNegative NegativeNOMonroe Clinic HospitalPT INTACTon 26-63-3350OXD, Rmguss11 pg/mL Iwetqy20-12Bec [facility] CenterComment on above:Performed By: #### LIPID, CMP, TSH, T7 #### [facility] [address] [place] [address] Dr. Jessica MosquedaHEMOGRAM AND PLATELon 30-99-0890Xvyljapfta (Bld) [Volume fraction]41.0 %Vsghpr05.0-48.0The [facility] CenterComment on above:Performed By: #### HH #### [facility] [address] [place] [address] Dr. Jessica MosquedaHemoglobin (Bld) [Mass/Vol]13.0 g/iYLwfswr67.0-16.0The [facility] CenterComment on above:Performed By: #### HH #### [facility] [address] [place] [address] Dr. Jessica MosquedaGOOD [facility] (RBC) [Entitic mass]28.6 cwSrvxjh32.7-34.0The [facility] CenterComment on above:Performed By: #### HH #### [facility] [address] [place] [address] Dr. Jessica Ramesh (RBC) [Mass/Vol]31.7 g/oFBbrhlv79.9-35.2The [facility] CenterComment on above:Performed By: #### HH #### [facility] [address] [place] [address] Dr. Jessica MosquedaMCV (RBC) [Entitic vol]90.3 kDIwwnaw35.0-99.0The [facility] Hospitalment on above:Performed By: #### HH #### [facility] [address] [place] [address] Dr. Jessica MosquedaPLT133 103/ulCritically ucc152-071Jkg [facility] CenterComment on above:Performed By: #### HH #### [facility] [address] [place] [address] Dr. Jessica MosquedaRBC4.54 106/ulNormal4.20-5.40[facility] on above:Performed By: #### HH #### [facility] [address] [place] [address] Dr. Jessica MosquedaWBC9.0 103/ulNormal4.0-11.0The [facility] CenterComment on above: Performed By: #### HH #### [facility] [address] [place] [address] Dr. Jessica MosquedaPHOSPHORUSon 81-57-0242Whhwrjbvn [Mass/Vol]4.3 mg/dLNormal2.6-4.7 [facility] on above:Performed By: #### PTHINT #### [facility] [address] [place] [address] Dr. Jessica MosquedaPROF 14(COMP METB)on 31-35-5597Anhxzyz [Mass/Vol]3.8 g/dLNormal 3.4-5.0The [facility] CenterComment on above:Performed By: #### PTHINT #### [facility] [address] [place] [address] Dr. Jessica MosquedaAlbumin/Globulin [Mass ratio]1.1 {ratio}NormalThe [facility] on above:Performed By: #### PTHINT #### [facility] [address] [place] [address] Dr. Jessica GormanP [Catalytic activity/Vol]36 U/LCritically zpf97-738Mtk Protection HospitalComment on above:Performed By: #### PTHINT #### [facility] [address] [address] [address] Jessica Salinas [Catalytic activity/Vol]14 U/GRddxqk94-42Gji [facility] CenterComment on above:Performed By: #### PTHINT #### [facility] [address] [address] [address] Jessica Stuarton gap [Moles/Vol]11.9 mmol/LNormalThe [facility] Comment on above:Performed By: #### PTHINT #### [facility] [address] [address] [address] Jessica MosquedaAST [Catalytic activity/Vol]13 U/LCritically dis77-32Rez [facility] CenterComment on above:Performed By: #### PTHINT #### [facility] [address] [address] [address] Jessica MosquedaBilirubin [Mass/Vol]0.3 mg/dLNormal0.2-1.0[facility] Comment on above:Performed By: #### PTHINT #### [facility] [address] [address] [address] Jessica MosquedaCalcium [Mass/Vol]9.0 mg/dLNormal8.5-10.1[facility] Comment on above:Performed By: #### PTHINT #### [facility] [address] [address] [address] Jessica MosquedaChloride [Moles/Vol]107 mmol/LOxjitg85-595Udf [facility] Comment on above:Performed By: #### PTHINT #### [facility] [address] [address] [address] Jessica MosquedaCO2 [Moles/Vol]28.1 mmol/FSehkrr25.0-32.0The [facility] Comment on above:Performed By: #### PTHINT #### [facility] [address] [address] [address] Jessica MosquedaCreatinine [Mass/Vol]2.10 mg/dLCritically high0.55-1.02The Og HospitalComment on above:Performed By: #### PTHINT #### [facility] [address] [address] [address] Jessica SalmonGFR-AF YPSOBSLN21 mL/min/1.91q1Xxsfgvguld low>=60The [facility] CenterComment on above:Performed By: #### PTHINT #### [facility] [address] [address] [address] Jessica SalmonGFR-NON AF MGPMIJWW90 mL/min/1.28d2Fvffoeurvs low>=60[facility] CenterComment on above:Performed By: #### PTHINT #### [facility] [address] [address] [address] Jessica MosquedaGlobulin (S) [Mass/Vol]3.6 g/dLNormalThBarberton Citizens HospitalComment on above:Performed By: #### PTHINT #### [facility] [address] [address] [address] Jessica MosquedaGlucose [Mass/Vol]82 mg/jOZaqtaw51-335DgiUniversity Hospitals Par[facility] Center Comment on above:Performed By: #### PTHINT #### [facility] [address] [address] [address] Jessica MosquedaPotassium [Moles/Vol]4.0 mmol/LNormal3.5-5.1[facility] Comment on above:Performed By: #### PTHINT #### [facility] [address] [address] [address] Jessica MosquedaProtein [Mass/Vol]7.4 g/dLNormal6.4-8.2[facility] Comment on above:Performed By: #### PTHINT #### [facility] [address] [address] [address] Jessica MosquedaSodium [Moles/Vol]143 mmol/HCsxkzf525-482XjoUniversity Hospitals Parma Medical Center Comment on above:Performed By: #### PTHINT #### [facility] [address] [address] [address] Jessica MosquedaUrea nitrogen [Mass/Vol]23.0 mg/dLCritically high7.0-18.0The [facility] CenterComment on above:Performed By: #### PTHINT #### [facility] [address] [address] [address] Jessica Hanson nitrogen/Creatinine [Mass ratio]11.0 mg/mgNoUC West Chester HospitalComment on above:Performed By: #### PTHINT #### [facility] [address] [address] [address] Jessica MosquedaMG MAMM SCREEN 3D MATILDA CADon 40-34-7492OZ MAMM SCREEN 3D MATILDA CAD Patient: ISABEL RIVERA Exam Date: 11/14/2022 : 1980 Gender:F Ordering : DR MAREN ORTIZ . Admission #: [id number] Family : Order #: [id number] CLICK HERE TO VIEW EXAM RADIOLOGY REPORT [...] unknown cancer at age 51. LOCATION: [facility] BREAST COMPOSITION: Extremely dense, which lowers the [...] by: Jonathon Huber M.D. on 11/15/2022 at 07:51[facility] - DublinINSULINon 60-87-0932Jzhcvfg5.2 uIU/mLNormal2.6-24.9[facility] Comment on above:Performed By: #### INSULIN #### [facility] [address] [address] [address] Jessica MosquedaCBC AUTO DIFFon 73-24-4927WEKP #0.0 103/ulNormal0.0-0.1The [facility] CenterComment on above:Performed By: #### LIPID, CMP, TSH, T7 #### [facility] [address] [place] [address] Dr. Jessica MosquedaBasophils/100 WBC (Bld)0.5 %Normal0.2-2.0The [facility] Comment on above:Performed By: #### LIPID, CMP, TSH, T7 #### [facility] [address] [place] [address] Dr. Jessica Swan #0.3 103/ulNormal0.0-0.7The [facility] CenterComment on above: Performed By: #### LIPID, CMP, TSH, T7 #### [facility] [address] [place] [address] Dr. Jessica Salmonosinophils/100 WBC (Bld)3.6 %Normal0.9-7.0The [facility] Comment on above:Performed By: #### LIPID, CMP, TSH, T7 #### [facility] [address] [place] [address] Dr. Jessica Simmonsthrocyte distribution width (RBC) [Ratio]13.2 %Xidpej75.0-15.0 The [facility] CenterComment on above:Performed By: #### LIPID, CMP, TSH, T7 #### [facility] [address] [place] [address] Dr. Jessica MosquedaHematocrit (Bld) [Volume fraction]41.9 %Styico13.0-48.0The [facility] CenterComment on above:Performed By: #### LIPID, CMP, TSH, T7 #### [facility] [address] [place] [address] Dr. Jessica MosquedaHemoglobin (Bld) [Mass/Vol]13.3 g/jYZbxdoa07.0-16.0The [facility] CenterComment on above:Performed By: #### LIPID, CMP, TSH, T7 #### [facility] [address] [place] [address] Dr. Jessica Brand #0.02 10e3/ulNormal0.00-0.03[facility] on above:Performed By: #### LIPID, CMP, TSH, T7 #### [facility] [address] [place] [address] Dr. Jessica Brand %0.3 %Normal0.0-0.5The [facility] on above: Performed By: #### LIPID, CMP, TSH, T7 #### [facility] [address] [place] [address] Dr. Jessica Peralta #2.2 103/ulNormal1.2-3.8The [facility] CenterCompromedica [facility] on above:Performed By: #### LIPID, CMP, TSH, T7 #### [facility] [address] [place] [address] Dr. Jessica Snowhocytes/100 WBC (Bld)29.6 %Thyjzn27.5-60.0[facility] on above:Performed By: #### LIPID, CMP, TSH, T7 #### [facility] [address] [place] [address] Dr. Jessica BinghamUAL DIFF REQNONormalThe [facility] on above: Performed By: #### LIPID, CMP, TSH, T7 #### [facility] [address] [place] [address] Dr. Jessica Ramesh (RBC) [Entitic mass]28.9 tjCyqeev11.7-34.0[facility] on above:Performed By: #### LIPID, CMP, TSH, T7 #### [facility] [address] [place] [address] Dr. Jessica Ramesh (RBC) [Mass/Vol]31.7 g/jSKrwrxw11.9-35.2[facility] on above:Performed By: #### LIPID, CMP, TSH, T7 #### [facility] [address] [place] [address] Dr. Jessica Ramesh (RBC) [Entitic vol]91.1 xWRuejgb55.0-99.0The [facility] CenterComment on above:Performed By: #### LIPID, CMP, TSH, T7 #### [facility] [address] [place] [address] Dr. Jessica Murguia #0.5 103/ulNormal0.3-0.8The [facility] CenterComment on above:Performed By: #### LIPID, CMP, TSH, T7 #### [facility] [address] [place] [address] Dr. Jessica Pathakocytes/100 WBC (Bld)6.1 %Normal1.7-12.0The [facility] Comment on above:Performed By: #### LIPID, CMP, TSH, T7 #### [facility] [address] [place] [address] Dr. Jessica Lin #4.4 103/ulNormal1.4-6.5The [facility] CenterComment on above:Performed By: #### LIPID, CMP, TSH, T7 #### [facility] [address] [place] [address] Dr. Jessica Godoyutrophils/100 WBC (Bld)59.9 %Spxrkz66.0-75.0The [facility] CenterComment on above:Performed By: #### LIPID, CMP, TSH, T7 #### [facility] [address] [place] [address] Dr. Jessica Gong mean volume (Bld) [Entitic vol]12.5 fLNormal9.5-13.5The [facility] CenterComment on above:Performed By: #### LIPID, CMP, TSH, T7 #### [facility] [address] [place] [address] Dr. Jessica MosquedaPLT157 103/tfCsodvg703-867Ogg [facility] CenterComment on above: Performed By: #### LIPID, CMP, TSH, T7 #### [facility] [address] [place] [address] Dr. Jessica MosquedaRBC4.60 106/ulNormal4.20-5.40The [facility] CenterComment on above:Performed By: #### LIPID, CMP, TSH, T7 #### [facility] [address] [place] [address] Dr. Jessica MosquedaWBC7.3 103/ulNormal4.0-11.0The [facility] CenterComment on above: Performed By: #### LIPID, CMP, TSH, T7 #### [facility] [address] [place] [address] Dr. Jessica MosquedaFRMANN THYROXINE INDEX T7on 72-17-4367EKL1.87Iqtqlu0.30-4.50The [facility] CenterComment on above:Performed By: #### LIPID, CMP, TSH, T7 #### [facility] [address] [place] [address] Dr. Jessica MosquedaT3U38.0 %Ftmrcn01.0-39.0The [facility] CenterComment on above: Performed By: #### LIPID, CMP, TSH, T7 #### [facility] [address] [place] [address] Dr. Jessica MosquedaT4 [Mass/Vol]6.60 ug/dLNormal4.80-13.90The [facility] Comment on above:Performed By: #### LIPID, CMP, TSH, T7 #### [facility] [address] [place] [address] Dr. Jessica MosquedaGLYCOHEMOGLOBIN A1Con 08-49-1368EIV RECOMMENDATIONSEE BELOWNormal The [facility] CenterComment on above:Result Comment: ADA RECOMMENDED LIMIT 4.0 - 6.0 ADA THERAPEUTIC TARGET < 7.0 ACTION SUGGESTED > 7.0Performed By: #### PTHINT #### [facility] [address] [place] [address] Dr. Jessica MosquedaGlucose [Mass/Vol]111 mg/dLNormalThe [facility] CenterComment on above:Performed By: #### PTHINT #### [facility] [address] [place] [address] Dr. Jessica MosquedaHbA1c (Bld) [Mass fraction]5.5 %Normal4.5-6.2The [facility] CenterComment on above:Performed By: #### PTHINT #### [facility] [address] [address] [address] Jessica Hernandez 00-86-6285Btdq [Mass/Vol]58.0 ug/bXFoibef01.0-170.0[facility] on above:Performed By: #### PTHINT #### [facility] [address] [address] [address] Jessica Marin PROFILEon 78-56-0998NIQM-HDL RATIO NORMSEE BELOWSelect Medical OhioHealth Rehabilitation Hospital - DublinCompromedica coldwater regional hospital on above:Result Comment: 3.3 - 4.4 LOW RISK 4.4 - 7.1 AVERAGE RISK 7.1 - 11.0 MODERATE RISK >11.0 HIGH RISKPerformed By: #### LIPID, CMP, TSH, T7 #### [facility] [address] [place] [address] Dr. Jessica Pinedaesterol [Mass/Vol]205 mg/dLCritically high<=200[facility] on above:Performed By: #### LIPID, CMP, TSH, T7 #### [facility] [address] [place] [address] Dr. Jessica Pinedaesterol in HDL [Mass/Vol]60 mg/bXMrgylt37-07Mlu [facility] on above:Performed By: #### LIPID, CMP, TSH, T7 #### [facility] [address] [place] [address] Dr. Jessica Pinedaesterol in LDL [Mass/Vol]127.4 mg/dLSalem Regional Medical Center on above:Performed By: #### LIPID, CMP, TSH, T7 #### [facility] [address] [place] [address] Dr. Jessica Erazo.total/Cholesterol in HDL [Mass ratio]3.4 {ratio} NormalSCCI Hospital Lima on above:Performed By: #### LIPID, CMP, TSH, T7 #### [facility] [address] [place] [address] Dr. Jessica Trujillo NORMAL> or = 60 mg/dl - LOW CARDIOVASCULAR RISK <40 mg/dl - HIGH CARDIOVASCULAR RISKNoUC [facility] Chester HospitalComment on above:Performed By: #### LIPID, CMP, TSH, T7 #### [facility] [address] [address] [address] Jessica Landa CALC NORMALSEE BELOWSelect Medical OhioHealth Rehabilitation Hospital - DublinComment on above:Result Comment: <100 mg/dl OPTIMAL 100 - 129 mg/dl NEAR OR ABOVE OPTIMAL 130 - 159 mg/dl BORDERLINE HIGH 160 - 189 mg/dl HIGH >190 mg/dl VERY HIGH Performed By: #### LIPID, CMP, TSH, T7 #### [facility] [address] [address] [address] Jessica MosquedaTriglyceride [Mass/Vol]88 mg/dLNormal<=150The [facility] Comment on above:Performed By: #### LIPID, CMP, TSH, T7 #### [facility] [address] [place] [address] Dr. Jessica MosquedaVLDL CALC17.6 mg/dLNoUC West [facility] HospitalComment on above: Performed By: #### LIPID, CMP, TSH, T7 #### [facility] [address] [place] [address] Dr. Jessica Patterson 14(COMP METB)on 83-68-4119Dnofdwe [Mass/Vol]3.8 g/dLNormal 3.4-5.0[facility] on above:Performed By: #### LIPID, CMP, TSH, T7 #### [facility] [address] [place] [address] Dr. Jessica MosquedaAlbumin/Globulin [Mass ratio]1.1 {ratio}NormalThe [facility] on above:Performed By: #### LIPID, CMP, TSH, T7 #### [facility] [address] [place] [address] Dr. Jessica Mullins [Catalytic activity/Vol]37 U/LCritically hma02-269[facility] on above:Performed By: #### LIPID, CMP, TSH, T7 #### [facility] [address] [place] [address] Dr. Yilan ChangALT [Catalytic activity/Vol]16 U/RWqnumm58-72Cqx [facility] CenterComment on above:Performed By: #### LIPID, CMP, TSH, T7 #### [facility] [address] [address] [address] Jessica Stuarton gap [Moles/Vol]13.7 mmol/LNormalUniversity [facility] Comment on above:Performed By: #### LIPID, CMP, TSH, T7 #### [facility] [address] [address] [address] Jessica MosquedaAST [Catalytic activity/Vol]14 U/LCritically ygc79-07Jyi [facility] CenterComment on above:Performed By: #### LIPID, CMP, TSH, T7 #### [facility] [address] [place] [address] Dr. Jessica MosquedaBilirubin [Mass/Vol]0.4 mg/dLNormal0.2-1.0[facility] Comment on above:Performed By: #### LIPID, CMP, TSH, T7 #### [facility] [address] [place] [address] Dr. Jessica MosquedaCalcium [Mass/Vol]9.6 mg/dLNormal8.5-10.1[facility] Comment on above:Performed By: #### LIPID, CMP, TSH, T7 #### [facility] [address] [place] [address] Dr. Jessica MosquedaChloride [Moles/Vol]107 mmol/OMxxtlc69-653PxnUniversity [facility]als [facility] Comment on above:Performed By: #### LIPID, CMP, TSH, T7 #### [facility] [address] [place] [address] Dr. Jessica MosquedaCO2 [Moles/Vol]27.5 mmol/PSeuvlc01.0-32.0[facility] Comment on above:Performed By: #### LIPID, CMP, TSH, T7 #### [facility] [address] [place] [address] Dr. Jessica MosquedaCreatinine [Mass/Vol]1.74 mg/dLCritically high0.55-1.02The [facility] CenterComment on above:Performed By: #### LIPID, CMP, TSH, T7 #### [facility] [address] [place] [address] Dr. Jessica SalmonGFR-AF LWFLYKGV12 mL/min/1.54k5Zsgrdzuohn low>=60The [facility] CenterComment on above:Performed By: #### LIPID, CMP, TSH, T7 #### [facility] [address] [place] [address] Dr. Jessica SalmonGFR-NON AF DWJIUCDL33 mL/min/1.72k8Vlkazmxsts low>=60The [facility] CenterComment on above:Performed By: #### LIPID, CMP, TSH, T7 #### [facility] [address] [place] [address] Dr. Jessica MosquedaGlobulin (S) [Mass/Vol]3.4 g/dLNormalThBarberton Citizens HospitalComment on above:Performed By: #### LIPID, CMP, TSH, T7 #### [facility] [address] [place] [address] Dr. Jessica MosquedaGlucose [Mass/Vol]95 mg/mEMeddxi02-260QhqUniversity Hospitals [facility] Comment on above:Performed By: #### LIPID, CMP, TSH, T7 #### [facility] [address] [place] [address] Dr. Jessica MosquedaPotassium [Moles/Vol]4.2 mmol/LNormal3.5-5.1[facility] Comment on above:Performed By: #### LIPID, CMP, TSH, T7 #### [facility] [address] [place] [address] Dr. Jessica MosquedaProtein [Mass/Vol]7.2 g/dLNormal6.4-8.2[facility] Comment on above:Performed By: #### LIPID, CMP, TSH, T7 #### [facility] [address] [place] [address] Dr. Jessica MosquedaSodium [Moles/Vol]144 mmol/MItdzir655-017PblUniversity Hospitals Par[facility] Center Comment on above:Performed By: #### LIPID, CMP, TSH, T7 #### [facility] [address] [place], [place] [id number] Dr. Jessica Hanson nitrogen [Mass/Vol]25.0 mg/dLCritically high7.0-18.0The [facility] CenterComment on above:Performed By: #### LIPID, CMP, TSH, T7 #### [facility] [address] [place] [address] Dr. Jessica Hanson nitrogen/Creatinine [Mass ratio]14.4 mg/mgNormalThe [facility] CenterComment on above:Performed By: #### LIPID, CMP, TSH, T7 #### [facility] [address] [place] [address] Dr. Jessica Brown 75-94-2107MGI8.244 uIU/mLNormal0.358-3.740The [facility] CenterComment on above:Performed By: #### LIPID, CMP, TSH, T7 #### [facility] [address] [place] [address] Dr. Jessica Nelson INTACTon 29-74-2920OBI, Kqvkru48 pg/vCWbvvuh35-42Zfm [facility] CenterComment on above:Performed By: #### LIPID, CMP, TSH, T7 #### [facility] [address] [place] [address] Dr. Jessica MosquedaHEMOGRAM AND PLATELon 12-29-2713Nozrumtsrz (Bld) [Volume fraction]39.0 %Hlozkk95.0-48.0The [facility] CenterComment on above:Performed By: #### HH #### [facility] [address] [place] [address] Dr. Jessica MosquedaHemoglobin (Bld) [Mass/Vol]12.3 g/uLUgxxam55.0-16.0The [facility] CenterComment on above:Performed By: #### HH #### [facility] [address] [place] [address] Dr. Jessica Munguia (RBC) [Entitic mass]29.1 umXbizlc29.7-34.0The [facility] CenterComment on above:Performed By: #### HH #### [facility] [address] [place] [address] Dr. Jessica RameshHC (RBC) [Mass/Vol]31.5 g/yOMammaa81.9-35.2The [facility] CenterComment on above:Performed By: #### HH #### [facility] [address] [place] [address] Dr. Jessica RameshV (RBC) [Entitic vol]92.4 gWUcjjda76.0-99.0The [facility] CenterComment on above:Performed By: #### HH #### [facility] [address] [place] [address] Dr. Jessica MosquedaPLT131 103/ulCritically cym085-210Kle [facility] CenterComment on above:Performed By: #### HH #### [facility] [address] [place] [address] Dr. Jessica MosquedaRBC4.22 106/ulNormal4.20-5.40The [facility] CenterComment on above:Performed By: #### HH #### [facility] [address] [place] [address] Dr. Jessica MosquedaWBC8.6 103/ulNormal4.0-11.0The [facility] CenterComment on above: Performed By: #### HH #### [facility] [address] [place] [address] Dr. Jessica MosquedaPHOSPHORUSon 29-71-8250Hybflfyjj [Mass/Vol]4.3 mg/dLNormal2.6-4.7 The [facility] CenterComment on above:Performed By: #### PTHINT #### [facility] [address] [place] [address] Dr. Jessica MosquedaPROF 14(COMP METB)on 61-88-8198Nqqdkuy [Mass/Vol]3.9 g/dLNormal 3.4-5.0The [facility] CenterComment on above:Performed By: #### PTHINT #### [facility] [address] [place] [address] Dr. Jessica MosquedaAlbumin/Globulin [Mass ratio]1.1 {ratio}NormalThe [facility] CenterComment on above:Performed By: #### PTHINT #### [facility] [address] [address] [address] Jessica Mullins [Catalytic activity/Vol]34 U/LCritically kvt14-147Bdu [facility] CenterComment on above:Performed By: #### PTHINT #### [facility] [address] [address] [address] Jessica Salinas [Catalytic activity/Vol]13 U/LCritically yuk40-06Pnb [facility] CenterComment on above:Performed By: #### PTHINT #### [facility] [address] [address] [address] Jessica Ibanez gap [Moles/Vol]13.6 mmol/LNormalThe [facility] Comment on above:Performed By: #### PTHINT #### [facility] [address] [address] [address] Jessica MosquedaAST [Catalytic activity/Vol]9 U/LCritically tis80-09Ztt [facility] CenterComment on above:Performed By: #### PTHINT #### [facility] [address] [address] [address] Jessica MosquedaBilirubin [Mass/Vol]0.3 mg/dLNormal0.2-1.0[facility] Comment on above:Performed By: #### PTHINT #### [facility] [address] [address] [address] Jessica MosquedaCalcium [Mass/Vol]9.5 mg/dLNormal8.5-10.1The [facility] Comment on above:Performed By: #### PTHINT #### [facility] [address] [address] [address] Jessica MosquedaChloride [Moles/Vol]105 mmol/VRxxppq98-694Qqx [facility] Comment on above:Performed By: #### PTHINT #### [facility] [address] [address] [address] Jessica MosquedaCO2 [Moles/Vol]24.7 mmol/IXuwpux83.0-32.0The [facility] Comment on above:Performed By: #### PTHINT #### [facility] [address] [address] [address] Jessica MosquedaCreatinine [Mass/Vol]1.67 mg/dLCritically high0.55-1.02[facility] CenterComment on above:Performed By: #### PTHINT #### [facility] [address] [address] [address] Jessica SalmonGFR-AF ZMEPEYWB95 mL/min/1.28c6Rvugprpezq low>=60The [facility] CenterComment on above:Performed By: #### PTHINT #### [facility] [address] [address] [address] Jessica SalmonGFR-NON AF BPMSSQEN08 mL/min/1.09h6Ckopfzvabi low>=60The [facility] CenterComment on above:Performed By: #### PTHINT #### [facility] [address] [address] [address] Jessica MosquedaGlobulin (S) [Mass/Vol]3.5 g/dLNormalThe [facility] CenterComment on above:Performed By: #### PTHINT #### [facility] [address] [address] [address] Jessica MosquedaGlucose [Mass/Vol]94 mg/sWGbthaq28-973EjcUniversity Hospitals [facility] Comment on above:Performed By: #### PTHINT #### [facility] [address] [address] [address] Jessica MosquedaPotassium [Moles/Vol]4.4 mmol/LNormal3.5-5.1The [facility] Comment on above:Performed By: #### PTHINT #### [facility] [address] [address] [address] Jessica MosquedaProtein [Mass/Vol]7.4 g/dLNormal6.4-8.2The [facility] Comment on above:Performed By: #### PTHINT #### [facility] [address] [address] [address] Jessica MosquedaSodium [Moles/Vol]139 mmol/QSqxxlw421-168Cat [facility] Comment on above:Performed By: #### PTHINT #### [facility] [address] [place] [address] Dr. Jessica MosquedaUrea nitrogen [Mass/Vol]29.0 mg/dLCritically high7.0-18.0The [facility] CenterComment on above:Performed By: #### PTHINT #### [facility] [address] [place] [address] Dr. Jessica MosquedaUrea nitrogen/Creatinine [Mass ratio]17.4 mg/mgNormalThe [facility] CenterComment on above:Performed By: #### PTHINT #### [facility] [address] [place] [address] Dr. Jessica MosuqedaPTSheng INTACTon 17-42-5983MEQ, Pugmhd41 pg/tPCaxswo00-34Rnw [facility] CenterComment on above:Performed By: #### PTHINT #### [facility] [address] [place] [address] Dr. Jessica MosquedaHEMOGRAM AND PLATELon 78-20-4432Kpsakyqsvs (Bld) [Volume fraction]37.5 %Qzfmaz08.0-48.0The [facility] CenterComment on above:Performed By: #### PTHINT #### [facility] [address] [place] [address] Dr. Jessica MosquedaHemoglobin (Bld) [Mass/Vol]12.1 g/nOKsussz26.0-16.0The [facility] CenterComment on above:Performed By: #### PTHINT #### [facility] [address] [place] [address] Dr. Jessica MosquedaMC (RBC) [Entitic mass]29.0 zyNhjoau62.7-34.0The [facility] CenterComment on above:Performed By: #### PTHINT #### [facility] [address] [place] [address] Dr. Jessica MosquedaMC (RBC) [Mass/Vol]32.3 g/kLGjebkm18.9-35.2The [facility] CenterComment on above:Performed By: #### PTHINT #### [facility] [address] [place] [address] Dr. Jessica MosquedaMCV (RBC) [Entitic vol]89.9 tDCffwjy64.0-99.0The [facility] CenterComment on above:Performed By: #### PTHINT #### [facility] [address] [place] [address] Dr. Jessica MosquedaPLT170 103/zuFqkpii053-658Sts [facility] CenterComment on above: Performed By: #### PTHINT #### [facility] [address] [place] [address] Dr. Jessica MosquedaRBC4.17 106/ulCritically low4.20-5.40The [facility] CenterComment on above:Performed By: #### PTHINT #### [facility] [address] [place] [address] Dr. Jessica MosquedaWBC9.4 103/ulNormal4.0-11.0The [facility] CenterComment on above: Performed By: #### PTHINT #### [facility] [address] [place] [address] Dr. Jessica MosquedaPHOSPHORUSon 51-54-9019Bcqitagba [Mass/Vol]3.8 mg/dLNormal2.6-4.7 [facility]ment on above:Performed By: #### LIPID, CMP, TSH, T7 #### [facility] [address] [place] [address] Dr. Jessica MosquedaPROF 14(COMP METB)on 22-01-2618Nymkjbi [Mass/Vol]4.0 g/dLNormal 3.4-5.0The [facility]ment on above:Performed By: #### LIPID, CMP, TSH, T7 #### [facility] [address] [place] [address] Dr. Jessica MosquedaAlbumin/Globulin [Mass ratio]1.2 {ratio}NormalThe [facility] CenterComment on above:Performed By: #### LIPID, CMP, TSH, T7 #### [facility] [address] [place] [address] Dr. Jessica Mullins [Catalytic activity/Vol]38 U/LCritically nbj96-991Qli [facility] CenterComment on above:Performed By: #### LIPID, CMP, TSH, T7 #### [facility] [address] [address] [address] Jessica GormanT [Catalytic activity/Vol]13 U/LCritically sos37-11Uzi [facility] CenterComment on above:Performed By: #### LIPID, CMP, TSH, T7 #### [facility] [address] [address] [address] Jessica Ibanez gap [Moles/Vol]13.1 mmol/LNormalThe [facility] Comment on above:Performed By: #### LIPID, CMP, TSH, T7 #### [facility] [address] [address] [address] Jessica MosquedaAST [Catalytic activity/Vol]14 U/LCritically iwi12-18Wgx [facility] CenterComment on above:Performed By: #### LIPID, CMP, TSH, T7 #### [facility] [address] [address] [address] Jessica MosquedaBilirubin [Mass/Vol]0.4 mg/dLNormal0.2-1.0The [facility] Comment on above:Performed By: #### LIPID, CMP, TSH, T7 #### [facility] [address] [address] [address] Jessica MosquedaCalcium [Mass/Vol]9.2 mg/dLNormal8.5-10.1[facility] Comment on above:Performed By: #### LIPID, CMP, TSH, T7 #### [facility] [address] [address] [address] Jessica MosquedaChloride [Moles/Vol]104 mmol/CHbflgy51-972Qyg [facility] Comment on above:Performed By: #### LIPID, CMP, TSH, T7 #### [facility] [address] [address] [address] Jessica MosquedaCO2 [Moles/Vol]26.1 mmol/KXpamic54.0-32.0The [facility] Comment on above:Performed By: #### LIPID, CMP, TSH, T7 #### [facility] [address] [address] [address] Jessica MosquedaCreatinine [Mass/Vol]1.86 mg/dLCritically high0.55-1.02[facility] CenterComment on above:Performed By: #### LIPID, CMP, TSH, T7 #### [facility] [address] [place] [address] Dr. Jessica SalmonGFR-AF XUHTOARK11 mL/min/1.39x0Bsxhltfdyh low>=60The [facility] CenterComment on above:Performed By: #### LIPID, CMP, TSH, T7 #### [facility] [address] [place] [address] Dr. Jessica Rea-NON AF HDASDPTX61 mL/min/1.57p6Hadztlblrw low>=60The [facility] CenterComment on above:Performed By: #### LIPID, CMP, TSH, T7 #### [facility] [address] [place] [address] Dr. Jessica MosquedaGlobulin (S) [Mass/Vol]3.4 g/dLNormalThe [facility] CenterComment on above:Performed By: #### LIPID, CMP, TSH, T7 #### [facility] [address] [place] [address] Dr. Jessica MosquedaGlucose [Mass/Vol]84 mg/fJJvqtol89-451ZffUniversity Hospitals [facility] Comment on above:Performed By: #### LIPID, CMP, TSH, T7 #### [facility] [address] [place] [address] Dr. Jessica MosquedaPotassium [Moles/Vol]4.2 mmol/LNormal3.5-5.1[facility] Comment on above:Performed By: #### LIPID, CMP, TSH, T7 #### [facility] [address] [place] [address] Dr. Jessica MosquedaProtein [Mass/Vol]7.4 g/dLNormal6.4-8.2[facility] Comment on above:Performed By: #### LIPID, CMP, TSH, T7 #### [facility] [address] [address] [address] Jessica Bricenodium [Moles/Vol]139 mmol/NBpvslq671-685XpsUniversity Hospitals Par[facility] Center Comment on above:Performed By: #### LIPID, CMP, TSH, T7 #### [facility] [address] [address] [address] Jessica Hanson nitrogen [Mass/Vol]26.0 mg/dLCritically high7.0-18.0[facility] CenterComment on above:Performed By: #### LIPID, CMP, TSH, T7 #### [facility] [address] [address] [address] Jessica Hanson nitrogen/Creatinine [Mass ratio]14.0 mg/mgNoalThe [facility] CenterComment on above:Performed By: #### LIPID, CMP, TSH, T7 #### [facility] [address] [address] [address] Jessica Brown 91-63-9591Drjlxaret Ql (U)NegativeNormalNEGATIVEUniversity Hospitals Parma Medical CenterComment on above:Performed By: #### LIPID, CMP, TSH, T7 #### [facility] [address] [place] [address] Dr. Jessica Kaplan (U)CLEARNormalCLEARUniversity Hospitals Parma Medical CenterComment on above: Performed By: #### LIPID, CMP, TSH, T7 #### [facility] [address] [address] [address] Jessica Parr (U)LT. YELLOWNormalYELLOWUniversity Hospitals Parma Medical CenterComment on above:Performed By: #### LIPID, CMP, TSH, T7 #### [facility] [address] [address] [address] Jessica MosquedaGlucose Ql (U)NegativeNormalNEGATIVEUniversity Hospitals Parma Medical CenterComment on above:Performed By: #### LIPID, CMP, TSH, T7 #### [facility] [address] [place] [address] Dr. Jessica MosquedaHemoglobin Ql (U)NegativeNormalNEGMercy Health Willard Hospital Comment on above:Performed By: #### LIPID, CMP, TSH, T7 #### [facility] [address] [address] [address] Jessica Waterman Ql (U)NegativeNormalNEGATIVEThe [facility] CenterComment on above:Performed By: #### LIPID, CMP, TSH, T7 #### [facility] [address] [address] [address] Jessica MosquedaLEUKOCYTESNegativeNormalNEGATIVEThe [facility] CenterComment on above:Performed By: #### LIPID, CMP, TSH, T7 #### [facility] [address] [address] [address] Jessica Norton Ql (U)NegativeNormalNEGATIVEThe [facility] CenterComment on above:Performed By: #### LIPID, CMP, TSH, T7 #### [facility] [address] [address] [address] Jessica MosquedapH (U)6.0 [pH]Normal5-9The [facility] CenterComment on above: Performed By: #### LIPID, CMP, TSH, T7 #### [facility] [address] [address] [address] Jessica MosquedaSPEC GRAVITY<=1.550Abbzkvsc2.005-<=1.025[facility] Comment on above:Performed By: #### LIPID, CMP, TSH, T7 #### [facility] [address] [address] [address] Jessica Darby PROTEINNegativeNormalNEGATIVE/ TRACEThe [facility] Comment on above:Performed By: #### LIPID, CMP, TSH, T7 #### [facility] [address] [address] [address] Jessica Thomas Qn (U)0.2 {Fran'U}/dLNormal0.2 - 1.0The [facility] CenterComment on above:Performed By: #### LIPID, CMP, TSH, T7 #### [facility] [address] [address] [address] Jessica Patterson 14(COMP METB)on 79-56-6162Qwlobdj [Mass/Vol]3.9 g/dLNormal 3.4-5.0The [facility] CenterComment on above:Performed By: #### PTHINT #### [facility] [address] [place] [address] Dr. Jessica MosquedaAlbumin/Globulin [Mass ratio]1.1 {ratio}NormalThe [facility] CenterComment on above:Performed By: #### PTHINT #### [facility] [address] [place] [address] Dr. Jessica GormanP [Catalytic activity/Vol]36 U/LCritically vgp96-258Wog [facility] CenterComment on above:Performed By: #### PTHINT #### [facility] [address] [place] [address] Dr. Jessica GormanT [Catalytic activity/Vol]17 U/OAkuxcp64-12Iat [facility] CenterComment on above:Performed By: #### PTHINT #### [facility] [address] [place] [address] Dr. Jessica Ibanez gap [Moles/Vol]13.9 mmol/LNormalThe [facility] Comment on above:Performed By: #### PTHINT #### [facility] [address] [place] [address] Dr. Jessica MosquedaAST [Catalytic activity/Vol]11 U/LCritically xab07-53Hnw [facility] CenterComment on above:Performed By: #### PTHINT #### [facility] [address] [place] [address] Dr. Jessica MosquedaBilirubin [Mass/Vol]0.3 mg/dLNormal0.2-1.0The [facility] Comment on above:Performed By: #### PTHINT #### [facility] [address] [place] [address] Dr. Jessica MosquedaCalcium [Mass/Vol]9.2 mg/dLNormal8.5-10.1[facility] Comment on above:Performed By: #### PTHINT #### [facility] [address] [place] [address] Dr. Jessica MosquedaChloride [Moles/Vol]105 mmol/GEsmqmr36-494Dvm [facility] Comment on above:Performed By: #### PTHINT #### [facility] [address] [address] [address] Jessica MosquedaCO2 [Moles/Vol]26.5 mmol/TFgkjkk09.0-32.0The [facility] Comment on above:Performed By: #### PTHINT #### [facility] [address] [address] [address] Jessica MosquedaCreatinine [Mass/Vol]2.06 mg/dLCritically high0.55-1.02The [facility] CenterComment on above:Performed By: #### PTHINT #### [facility] [address] [place] [address] Dr. Lopez ChangEGFR-AF KSOAETJR47 mL/min/1.07z4Ribzjyfhfo low>=60The [facility] CenterComment on above:Performed By: #### PTHINT #### [facility] [address] [address] [address] Jessica SalmonGFR-NON AF NNFSXRPZ88 mL/min/1.51y6Ikcjguwoyy low>=60The [facility] CenterComment on above:Performed By: #### PTHINT #### [facility] [address] [place] [address] Dr. Jessica MosquedaGlobulin (S) [Mass/Vol]3.5 g/dLNormalThe [facility] CenterComment on above:Performed By: #### PTHINT #### [facility] [address] [address] [address] Jessica MosquedaGlucose [Mass/Vol]75 mg/lNKvfhxk62-390Uty [facility] Comment on above:Performed By: #### PTHINT #### [facility] [address] [place] [address] Dr. Jessica MosquedaPotassium [Moles/Vol]4.4 mmol/LNormal3.5-5.1The [facility] Comment on above:Performed By: #### PTHINT #### [facility] [address] [address] [address] Jessica MosquedaProtein [Mass/Vol]7.4 g/dLNormal6.4-8.2The [facility] Comment on above:Performed By: #### PTHINT #### [facility] [address] [place] [address] Dr. Jessica MosquedaSodium [Moles/Vol]141 mmol/GTkwymx135-174Apv [facility] Comment on above:Performed By: #### PTHINT #### [facility] [address] [place] [address] Dr. Jessica MosquedaUrea nitrogen [Mass/Vol]37.0 mg/dLCritically high7.0-18.0The [facility] CenterComment on above:Performed By: #### PTHINT #### [facility] [address] [place] [address] Dr. Jessica MosquedaUrea nitrogen/Creatinine [Mass ratio]18.0 mg/mgNormalThe [facility] CenterComment on above:Performed By: #### PTHINT #### [facility] [address] [place] [address] Dr. Jessica MosquedaPROF 14(COMP METB)on 46-18-3800Lqyebmr [Mass/Vol]3.9 g/dLNormal 3.4-5.0The [facility] CenterComment on above:Performed By: #### CMP #### [facility] [address] [place] [address] Dr. Jessica MosquedaAlbumin/Globulin [Mass ratio]1.2 {ratio}NormalThe [facility] CenterComment on above:Performed By: #### CMP #### [facility] [address] [place] [address] Dr. Jessica GormanP [Catalytic activity/Vol]32 U/LCritically ysf97-000Bgn [facility] CenterComment on above:Performed By: #### CMP #### [facility] [address] [place] [address] Dr. Jessica GormanT [Catalytic activity/Vol]12 U/LCritically qhb92-58Kqy [facility] CenterComment on above:Performed By: #### CMP #### [facility] [address] [address] [address] Jessica Stuarton gap [Moles/Vol]13.6 mmol/LNormalThe [facility] Comment on above:Performed By: #### CMP #### [facility] [address] [address] [address] Jessica MosquedaAST [Catalytic activity/Vol]15 U/OVxtbqq96-69Ifz [facility] CenterComment on above:Performed By: #### CMP #### [facility] [address] [address] [address] Jessica MosquedaBilirubin [Mass/Vol]0.2 mg/dLNormal0.2-1.0The [facility] Comment on above:Performed By: #### CMP #### [facility] [address] [address] [address] Jessica MosquedaCalcium [Mass/Vol]9.2 mg/dLNormal8.5-10.1The [facility] Comment on above:Performed By: #### CMP #### [facility] [address] [address] [address] Jessica MosquedaChloride [Moles/Vol]105 mmol/HQbemik65-146Pnz [facility] Comment on above:Performed By: #### CMP #### [facility] [address] [address] [address] Jessica MosquedaCO2 [Moles/Vol]26.0 mmol/PHwoqjv45.0-32.0The [facility] Comment on above:Performed By: #### CMP #### [facility] [address] [address] [address] Jessica MosquedaCreatinine [Mass/Vol]1.98 mg/dLCritically high0.55-1.02The [facility] CenterComment on above:Performed By: #### CMP #### [facility] [address] [address] [address] Lopez ChangEGFR-AF QFQXOYZX80 mL/min/1.95u1Movqbipcgl low>=60The [facility] CenterComment on above:Performed By: #### CMP #### [facility] [address] [address] [address] Jessica SalmonGFR-NON AF HXMHOLUR67 mL/min/1.72z4Pmdnieccpi low>=60The [facility] CenterComment on above:Performed By: #### CMP #### [facility] [address] [address] [address] Jessica MosquedaGlobulin (S) [Mass/Vol]3.3 g/dLNoUC [facility] HospitalComment on above:Performed By: #### CMP #### [facility] [address] [address] [address] Jessica MosquedaGlucose [Mass/Vol]93 mg/aOSokmrh64-464Oea [facility] Comment on above:Performed By: #### CMP #### [facility] [address] [address] [address] Jessica MosquedaPotassium [Moles/Vol]4.6 mmol/LNormal3.5-5.1The [facility] Comment on above:Performed By: #### CMP #### [facility] [address] [address] [address] Jessica MosquedaProtein [Mass/Vol]7.2 g/dLNormal6.4-8.2The [facility] Comment on above:Performed By: #### CMP #### [facility] [address] [address] [address] Jessica MosquedaSodium [Moles/Vol]140 mmol/OOgbgkv957-942Sxd [facility] Comment on above:Performed By: #### CMP #### [facility] [address] [place] [address] [address] Jessica MosquedaUrea nitrogen [Mass/Vol]23.0 mg/dLCritically high7.0-18.0The [facility] CenterComment on above:Performed By: #### CMP #### [facility] [address] [address] [address] Jessica Hanson nitrogen/Creatinine [Mass ratio]11.6 mg/mgNoUC [facility] HospitalComment on above:Performed By: #### CMP #### [facility] [address] [place] [address] Dr. Jessica Nelson INTACTon 28-51-7748QVF, Lenhkq12 pg/mLCritically xyic77-25Mfs [facility] CenterComment on above:Performed By: #### PTHINT #### [facility] [address] [place] [address] Dr. Jessica MosquedaHEMOGRAM AND PLATELon 66-72-7259Azeqpjdgmn (Bld) [Volume fraction]37.8 %Tpzrga30.0-48.0The [facility] CenterComment on above:Performed By: #### HH #### [facility] [address] [place] [address] Dr. Jessica MosquedaHemoglobin (Bld) [Mass/Vol]12.3 g/yHGqyytj39.0-16.0The [facility] CenterComment on above:Performed By: #### HH #### [facility] [address] [place] [address] Dr. Jessica Ramesh (RBC) [Entitic mass]29.6 cdAmvdkb37.7-34.0The [facility] CenterComment on above:Performed By: #### HH #### [facility] [address] [place] [address] Dr. Jessica Ramesh (RBC) [Mass/Vol]32.5 g/tIKtctjo52.9-35.2The [facility] CenterComment on above:Performed By: #### HH #### [facility] [address] [place] [address] Dr. Jessica Ramesh (RBC) [Entitic vol]90.9 cGFpjlay29.0-99.0The [facility] CenterComment on above:Performed By: #### HH #### [facility] [address] [place] [address] Dr. Jessica MosquedaPLT158 103/jnGvwwmk754-646Pnl [facility] CenterComment on above: Performed By: #### HH #### [facility] [address] [place] [address] Dr. Jessica MosquedaRBC4.16 106/ulCritically low4.20-5.40The [facility] Hospitalment on above:Performed By: #### HH #### [facility] [address] [place] [address] Dr. Jessica MosquedaWBC10.3 103/ulNormal4.0-11.0The [facility] Hospitalment on above:Performed By: #### HH #### [facility] [address] [place] [address] Dr. Jessica LeonardUSon 77-08-2640Pzwjlmbsm [Mass/Vol]4.7 mg/dLNormal2.6-4.7 The [facility] CenterComment on above:Performed By: #### LIPID, CMP, TSH, T7 #### [facility] [address] [place] [address] Dr. Jessica Patterson 14(COMP METB)on 58-29-9501Xmltooq [Mass/Vol]4.1 g/dLNormal 3.4-5.0The [facility] Hospitalment on above:Performed By: #### LIPID, CMP, TSH, T7 #### [facility] [address] [place] [address] Dr. Jessica MosquedaAlbumin/Globulin [Mass ratio]1.2 {ratio}NormalThe [facility] Hospitalment on above:Performed By: #### LIPID, CMP, TSH, T7 #### [facility] [address] [place] [address] Dr. Jessica Mullins [Catalytic activity/Vol]36 U/LCritically dju75-629Mmp [facility] Hospitalment on above:Performed By: #### LIPID, CMP, TSH, T7 #### [facility] [address] [place] [address] Dr. Jessica Salinas [Catalytic activity/Vol]16 U/DFcznzg62-67Ezf [facility] on above:Performed By: #### LIPID, CMP, TSH, T7 #### [facility] [address] [place] [address] Dr. Jessica Ibanez gap [Moles/Vol]15.4 mmol/LNormalThe [facility] Comment on above:Performed By: #### LIPID, CMP, TSH, T7 #### [facility] [address] [address] [address] Jessica MosquedaAST [Catalytic activity/Vol]12 U/LCritically ked71-89Ruf [facility] CenterComment on above:Performed By: #### LIPID, CMP, TSH, T7 #### [facility] [address] [address] [address] Jessica MosquedaBilirubin [Mass/Vol]0.6 mg/dLNormal0.2-1.0The [facility] Comment on above:Performed By: #### LIPID, CMP, TSH, T7 #### [facility] [address] [place] [address] Dr. Jessica MosquedaCalcium [Mass/Vol]9.3 mg/dLNormal8.5-10.1[facility] Comment on above:Performed By: #### LIPID, CMP, TSH, T7 #### [facility] [address] [place] [address] Dr. Jessica MosquedaChloride [Moles/Vol]103 mmol/PDjpxbh80-330Jho [facility] Comment on above:Performed By: #### LIPID, CMP, TSH, T7 #### [facility] [address] [place] [address] Dr. Jessica MosquedaCO2 [Moles/Vol]24.4 mmol/PUrniil24.0-32.0[facility] Comment on above:Performed By: #### LIPID, CMP, TSH, T7 #### [facility] [address] [place] [address] Dr. Jessica MosquedaCreatinine [Mass/Vol]2.04 mg/dLCritically high0.55-1.02The [facility] CenterComment on above:Performed By: #### LIPID, CMP, TSH, T7 #### [facility] [address] [place] [address] Dr. Jessica SalmonGFR-AF AFUSKEMX54 mL/min/1.75k8Ctwbfqlydq low>=60The [facility] CenterComment on above:Performed By: #### LIPID, CMP, TSH, T7 #### [facility] [address] [address] [address] Jessica SalmonGFR-NON AF VLCQKJFQ68 mL/min/1.94i6Nbygzlswvt low>=60The [facility] CenterComment on above:Performed By: #### LIPID, CMP, TSH, T7 #### [facility] [address] [address] [address] Jessica MosquedaGlobulin (S) [Mass/Vol]3.3 g/dLNormalThe [facility] CenterComment on above:Performed By: #### LIPID, CMP, TSH, T7 #### [facility] [address] [place] [address] Dr. Jessica MosquedaGlucose [Mass/Vol]84 mg/aNGyfgip38-514UxxUniversity [facility] Comment on above:Performed By: #### LIPID, CMP, TSH, T7 #### [facility] [address] [place] [address] Dr. Jessica MosquedaPotassium [Moles/Vol]3.8 mmol/LNormal3.5-5.1The [facility] Comment on above:Performed By: #### LIPID, CMP, TSH, T7 #### [facility] [address] [address] [address] Jessica MosquedaProtein [Mass/Vol]7.4 g/dLNormal6.4-8.2[facility] Comment on above:Performed By: #### LIPID, CMP, TSH, T7 #### [facility] [address] [place] [address] Dr. Jesisca MosquedaSodium [Moles/Vol]139 mmol/RFxervn781-733Ree [facility] Comment on above:Performed By: #### LIPID, CMP, TSH, T7 #### [facility] [address] [place] [address] Dr. Jessica MosquedaUrea nitrogen [Mass/Vol]30.0 mg/dLCritically high7.0-18.0The [facility] CenterComment on above:Performed By: #### LIPID, CMP, TSH, T7 #### [facility] [address] [place] [address] Dr. Jessica MosquedaUrea nitrogen/Creatinine [Mass ratio]14.7 mg/mgNormalThe [facility] CenterComment on above:Performed By: #### LIPID, CMP, TSH, T7 #### [facility] [address] [address] [address] Jessica AGUILARon 14-95-4885Tbzlgzviu Ql (U)NegativeNormalNEGATIVEUniversity Hospitals Parma Medical CenterComment on above:Performed By: #### LIPID, CMP, TSH, T7 #### [facility] [address] [address] [address] Jessica MosquedaClarity (U)CLEARNormalCLEARUniversity Hospitals Parma Medical CenterComment on above: Performed By: #### LIPID, CMP, TSH, T7 #### [facility] [address] [place] [address] Dr. Jessica Parr (U)LT. YELLOWNormalYNewark HospitalComment on above:Performed By: #### LIPID, CMP, TSH, T7 #### [facility] [address] [place] [address] Dr. Jessica MosquedaGlucose Ql (U)NegativeNormalNEGATIVEUniversity Hospitals Parma Medical CenterComment on above:Performed By: #### LIPID, CMP, TSH, T7 #### [facility] [address] [place] [address] Dr. Jessica MosquedaHemoglobin Ql (U)NegativeNormalNEGRegency Hospital Cleveland East on above:Performed By: #### LIPID, CMP, TSH, T7 #### [facility] [address] [address] [address] Jessica MosquedaKetones Ql (U)NegativeNormalNEGATIVEUniversity Hospitals Parma Medical CenterComment on above:Performed By: #### LIPID, CMP, TSH, T7 #### [facility] [address] [place] [address] Dr. Jessica MosquedaLEUKOCYTESNegativeNormalNEGATIVEUniversity Hospitals Parma Medical CenterComment on above:Performed By: #### LIPID, CMP, TSH, T7 #### [facility] [address] [place] [address] Dr. Jessica Norton Ql (U)NegativeNormalNEGATIVEThe [facility] CenterComment on above:Performed By: #### LIPID, CMP, TSH, T7 #### [facility] [address] [place] [address] Dr. Jessica MosquedapH (U)5.5 [pH]Normal5-9The [facility] CenterComment on above: Performed By: #### LIPID, CMP, TSH, T7 #### [facility] [address] [place] [address] Dr. Jessica MosquedaSPEC GRAVITY1.941Pchxbr9.005-<=1.025The [facility] CenterComment on above:Performed By: #### LIPID, CMP, TSH, T7 #### [facility] [address] [place] [address] Dr. Jessica Darby PROTEINNegativeNormalNEGATIVE/ TRACEThe [facility] Comment on above:Performed By: #### LIPID, CMP, TSH, T7 #### [facility] [address] [place] [address] Dr. Jessica Thomas Qn (U)0.2 {Fran'U}/dLNormal0.2 - 1.0The [facility] CenterComment on above:Performed By: #### LIPID, CMP, TSH, T7 #### [facility] [address] [place] [address] Dr. Jessica Bedolla T PROTEIN CREAT RATIOon 53-50-2707OE TOTAL PROTEIN<6.0 Normal<=12.0The [facility] CenterComment on above:Performed By: #### LIPID, CMP, TSH, T7 #### [facility] [address] [place] [address] Dr. Jessica Bedolla CREAT23.46 mg/nHGukhuv36.00-300.00[facility] Comment on above:Performed By: #### LIPID, CMP, TSH, T7 #### [facility] [address] [place] [address] Dr. Jessica MosquedaPROF 14(COMP METB)on 44-45-7164Kzulgji [Mass/Vol]3.8 g/dLNormal 3.4-5.0The [facility] CenterComment on above:Performed By: #### LIPID, CMP, TSH, T7 #### [facility] [address] [place] [address] Dr. Jessica MosquedaAlbumin/Globulin [Mass ratio]1.3 {ratio}NormalThe [facility] CenterComment on above:Performed By: #### LIPID, CMP, TSH, T7 #### [facility] [address] [place] [address] Dr. Jessica Mullins [Catalytic activity/Vol]35 U/LCritically ncf53-926Sid [facility] CenterComment on above:Performed By: #### LIPID, CMP, TSH, T7 #### [facility] [address] [place] [address] Dr. Jessica Salinas [Catalytic activity/Vol]17 U/AZznoco33-47Gnj [facility] CenterComment on above:Performed By: #### LIPID, CMP, TSH, T7 #### [facility] [address] [place] [address] Dr. Jessica Ibanez gap [Moles/Vol]12.2 mmol/LNormalUniversity [facility] Comment on above:Performed By: #### LIPID, CMP, TSH, T7 #### [facility] [address] [place] [address] Dr. Jessica MosquedaAST [Catalytic activity/Vol]13 U/LCritically rlj74-08Jyf [facility] CenterComment on above:Performed By: #### LIPID, CMP, TSH, T7 #### [facility] [address] [place] [address] Dr. Jessica MosquedaBilirubin [Mass/Vol]0.4 mg/dLNormal0.2-1.0The [facility] Comment on above:Performed By: #### LIPID, CMP, TSH, T7 #### [facility] [address] [place] [address] Dr. Jessica MosquedaCalcium [Mass/Vol]8.6 mg/dLNormal8.5-10.1[facility] Comment on above:Performed By: #### LIPID, CMP, TSH, T7 #### [facility] [address] [address] [address] Jessica MosquedaChloride [Moles/Vol]106 mmol/RHqnckx92-714LrpUniversity Hospitals [facility] Comment on above:Performed By: #### LIPID, CMP, TSH, T7 #### [facility] [address] [place] [address] Dr. Jessica MosquedaCO2 [Moles/Vol]26.1 mmol/JFsbzxq49.0-32.0The [facility] Comment on above:Performed By: #### LIPID, CMP, TSH, T7 #### [facility] [address] [place] [address] Dr. Jessica MosquedaCreatinine [Mass/Vol]1.76 mg/dLCritically high0.55-1.02[facility] CenterComment on above:Performed By: #### LIPID, CMP, TSH, T7 #### [facility] [address] [place] [address] Dr. Jessica SalmonGFR-AF JIQNWKSJ09 mL/min/1.17o8Eencmfdjzr low>=60The [facility] CenterComment on above:Performed By: #### LIPID, CMP, TSH, T7 #### [facility] [address] [place] [address] Dr. Jessica Rea-NON AF YYKYABWV62 mL/min/1.66k6Xxxruoxdup low>=60[facility] CenterComment on above:Performed By: #### LIPID, CMP, TSH, T7 #### [facility] [address] [place] [address] Dr. Jessica MosquedaGlobulin (S) [Mass/Vol]3.0 g/dLNormalThe [facility] CenterComment on above:Performed By: #### LIPID, CMP, TSH, T7 #### [facility] [address] [place] [address] Dr. Jessica MosquedaGlucose [Mass/Vol]81 mg/vQPiqbzh63-505JzdUniversity Hospitals [facility] Comment on above:Performed By: #### LIPID, CMP, TSH, T7 #### [facility] [address] [place] [address] Dr. Jessica MosquedaPotassium [Moles/Vol]4.3 mmol/LNormal3.5-5.1The [facility] Comment on above:Performed By: #### LIPID, CMP, TSH, T7 #### [facility] [address] [address] [address] Jessica MosquedaProtein [Mass/Vol]6.8 g/dLNormal6.4-8.2The [facility] Comment on above:Performed By: #### LIPID, CMP, TSH, T7 #### [facility] [address] [address] [address] Jessica MosquedaSodium [Moles/Vol]140 mmol/TYytsiz580-427Tds [facility] Comment on above:Performed By: #### LIPID, CMP, TSH, T7 #### [facility] [address] [place] [address] Dr. Jessica MosquedaUrea nitrogen [Mass/Vol]20.0 mg/dLCritically high7.0-18.0The [facility] CenterComment on above:Performed By: #### LIPID, CMP, TSH, T7 #### [facility] [address] [place] [address] Dr. Jessica Hanson nitrogen/Creatinine [Mass ratio]11.4 mg/mgNormalThe [facility] CenterComment on above:Performed By: #### LIPID, CMP, TSH, T7 #### [facility] [address] [place] [address] Dr. Jessica MosquedaPROF 14(COMP METB)on 71-20-8930Yqmsxoe [Mass/Vol]4.0 g/dLNormal 3.4-5.0The [facility] CenterComment on above:Performed By: #### LIPID, CMP, TSH, T7 #### [facility] [address] [place] [address] Dr. Jessica MosquedaAlbumin/Globulin [Mass ratio]1.2 {ratio}NormalThe [facility] CenterComment on above:Performed By: #### LIPID, CMP, TSH, T7 #### [facility] [address] [place] [address] Dr. Jessica GormanP [Catalytic activity/Vol]31 U/LCritically poz50-927Gmc [facility] CenterComment on above:Performed By: #### LIPID, CMP, TSH, T7 #### [facility] [address] [place] [address] Dr. Jessica Salinas [Catalytic activity/Vol]19 U/ODjeyos93-73Jto [facility] CenterComment on above:Performed By: #### LIPID, CMP, TSH, T7 #### [facility] [address] [place] [address] Dr. Jessica Ibanez gap [Moles/Vol]13.7 mmol/LNormalUniversity [facility]als [facility] Comment on above:Performed By: #### LIPID, CMP, TSH, T7 #### [facility] [address] [place] [address] Dr. Jessica Mckeon [Catalytic activity/Vol]12 U/LCritically lmc04-57Olo [facility] CenterComment on above:Performed By: #### LIPID, CMP, TSH, T7 #### [facility] [address] [place] [address] Dr. Jessica MosquedaBilirubin [Mass/Vol]0.3 mg/dLNormal0.2-1.0[facility] Comment on above:Performed By: #### LIPID, CMP, TSH, T7 #### [facility] [address] [place] [address] Dr. Jessica MosquedaCalcium [Mass/Vol]9.3 mg/dLNormal8.5-10.1[facility] Comment on above:Performed By: #### LIPID, CMP, TSH, T7 #### [facility] [address] [place] [address] Dr. Jessica MosquedaChloride [Moles/Vol]106 mmol/KDovqnj94-107PqcUniversity Hospitals [facility] Comment on above:Performed By: #### LIPID, CMP, TSH, T7 #### [facility] [address] [place] [address] Dr. Jessica MosquedaCO2 [Moles/Vol]25.4 mmol/QLtquhx56.0-32.0The [facility] Comment on above:Performed By: #### LIPID, CMP, TSH, T7 #### [facility] [address] [address] [address] Jessica MosquedaCreatinine [Mass/Vol]1.84 mg/dLCritically high0.55-1.02[facility] CenterComment on above:Performed By: #### LIPID, CMP, TSH, T7 #### [facility] [address] [place] [address] Dr. Jessica SalmonGFR-AF CGTJVUYH37 mL/min/1.17y1Iprtucbnpx low>=60The [facility] CenterComment on above:Performed By: #### LIPID, CMP, TSH, T7 #### [facility] [address] [address] [address] Jessica SalmonGFR-NON AF SAZIKMEV26 mL/min/1.72p5Ebhntslbjt low>=60The [facility] CenterComment on above:Performed By: #### LIPID, CMP, TSH, T7 #### [facility] [address] [place] [address] Dr. Jessica MosquedaGlobulin (S) [Mass/Vol]3.4 g/dLNormalThe [facility] CenterComment on above:Performed By: #### LIPID, CMP, TSH, T7 #### [facility] [address] [place] [address] Dr. Jessica MoqsuedaGlucose [Mass/Vol]99 mg/uVPfkprj71-019ViaUniversity Hospitals Parma Medical Center Comment on above:Performed By: #### LIPID, CMP, TSH, T7 #### [facility] [address] [place] [address] Dr. Jessica MosquedaPotassium [Moles/Vol]4.1 mmol/LNormal3.5-5.1[facility] Comment on above:Performed By: #### LIPID, CMP, TSH, T7 #### [facility] [address] [place] [address] Dr. Jessica MosquedaProtein [Mass/Vol]7.4 g/dLNormal6.4-8.2[facility] Comment on above:Performed By: #### LIPID, CMP, TSH, T7 #### [facility] [address] [place] [address] Dr. Jessica Artisum [Moles/Vol]141 mmol/IIhwrau951-034Qug [facility] Comment on above:Performed By: #### LIPID, CMP, TSH, T7 #### [facility] [address] [address] [address] Jessica Hanson nitrogen [Mass/Vol]25.0 mg/dLCritically high7.0-18.0The [facility] CenterComment on above:Performed By: #### LIPID, CMP, TSH, T7 #### [facility] [address] [address] [address] Jessica Hanson nitrogen/Creatinine [Mass ratio]13.6 mg/mgNormalThe Adena Pike Medical CenterComment on above:Performed By: #### LIPID, CMP, TSH, T7 #### [facility] [address] [address] [address] Jessica SnowOVSBeck [id number] () Office ([place]) PATRICIAISABEL KENT ([id number]) 1980 F Date Time Provider Department 09/04/19 3:45 PM LUIS ANGEL HALL During your visit today, we recorded the following information about you: Temperature Pulse Respiration Blood pressure 97.6 degrees 66/minute 18/minute 115/66 Weight Height 82.2 kg 1.676 m Luis Angel Hall DO 09/06/2019 9:21 AM Signed PATIENT NAME: Isabel Rivera REFERRING PHYSICIAN: Timothy Mills MD [address] [place] [address] [place] [address] PRIMARY CARE PHYSICIAN: Maren Ortiz MD CHIEF [...] did not have a lupus anticoagulant. Protein ELEVATOR TROUBLESHOOTER were within expected ranges. She had negative [...] 2017. 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 Follows with Dr. Bateman, vascular. She does exercise slightly 3 days a week and works a [employer] in [facility]. Medications as of September 2017 [...] questions satisfactorily.. Ankit Hall D.O. Medical Oncologist [place], [place] Cc. Dr. Bateman. Referring Provider: LUIS ANGEL HALL [[id number]] Allergies As of Date: 09/04/2019 Noted Allergy [...] Status:Closed by LUIS ANGEL HALL DO on 09/06/19[facility] [id number] ID: [id number] Author: Luis Angel Hall Service: ? Author Type: Physician Type: Progress Notes Filed: 09/06/2019 9:21 AM Note Text: PATIENT NAME: Isabel Rivera REFERRING PHYSICIAN: Timothy Mills MD [address] [place] [address] [place] [address] PRIMARY CARE PHYSICIAN: Maren Ortiz MD CHIEF [...] did not have a lupus anticoagulant. Protein ELEVATOR TROUBLESHOOTER were within expected ranges. She had negative [...] 2017. 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 Follows with Dr. Bateman, vascular. 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 Medications as of September 2017 [...] satisfactorily.. Ankit Hall D.O. Medical Oncologist [facility], [place] Cc. Dr. Bateman.[facility], Cancer CenterCNOVSPon [id number] ([place]) Office ([place]) PATRICIAISABEL KENT ([id number]) 1980 F Date Time Provider Department 07/30/19 3:45 PM LUIS ANGEL HALL [place] During your visit today, we recorded the following information about you: Temperature Pulse Respiration Blood pressure 98.4 degrees 61/minute 16/minute 107/69 Weight Height 80.6 kg 1.676 m Luis Angel Hall DO 08/02/2019 11:50 AM Signed PATIENT NAME: Isabel Rivera REFERRING PHYSICIAN: Timothy Mills MD [address] [place] [address] [place] [address] PRIMARY CARE PHYSICIAN: Maren Ortiz MD CHIEF [...] TIBC - CBC + DIFF (FOR REMOTE [facility] USE) - BASIC METABOLIC PNL [...] 2017. 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 Follows with Dr. Bateman, vascular. She does exercise slightly 3 days a week and works a [employer] in [facility]. Medications as of September 2017 [...] satisfactorily.. Ankit Hall D.O. Medical Oncologist [facility], [place] Cc. Dr. Bateman. Referring Provider: TIMOTHY MILLS [[id number]] Allergies As of Date: 07/30/2019 (Not on File) Date Reviewed: 07/30/2019 Reviewed by: Lavonne Borrego - Fully Assessed Reason for Visit: Consult [173] Primary Visit Diagnosis:Acute deep vein thrombosis (DVT) of proximal vein of both lower extremities (HCC) [I82.4Y3] Order(s):US LEG VEIN DVT [facility] [[id number]] Order #: [id number] FUTURE FACTOR V LEIDEN/PCR [SQFVLEID] Order #: [id number] FUTURE PROTHROMBIN GENE PCR [SQPTGENE] Order #: [id number] FUTURE PROTEIN C FUNCT [SQPRCFUN] Order #: [id number] FUTURE PROTEIN S CLOTTABLE [SQPRSCLT] Order #: [id number] FUTURE ANTITHROMBIN ACTIVITY [GIOU0DEC] Order #: [id number] FUTURE LUPUS ANTICOAG PL [SQLUPUSP] Order #: [id number] FUTURE B 2 GPI IGG AND IGM [JQM3MRGB] Order #: [id number] FUTURE ANTI-CARDIOLIPIN AB [SQCARDIO] Order #: [id number] FUTURE HOMOCYSTEINE [SQHOMCYS] Order #: [id number] FUTURE FERRITIN BLD [SQFERR] Order #: [id number] FUTURE IRON + TIBC [SQIRON] Order #: [id number] FUTURE CBC + DIFF (FOR REMOTE [facility] USE) [SQRCBCDF] Order #: [id number] FUTURE BASIC METABOLIC PNL [SQBMP] Order #: [id number] FUTURE HEPATIC FUNCTION PNL [SQHFP] Order #: [id number] FUTURE Disposition: Return labs today. f/u 4 [...] Status:Closed by LUIS ANGEL HALL DO on 08/02/19[facility] [id number] ID: [id number] Author: Luis Angel Hall Service: ? Author Type: Physician Type: Progress Notes Filed: 08/02/2019 11:50 AM Note Text: PATIENT NAME: Isabel Rivera REFERRING PHYSICIAN: Timothy Mills MD [address] [place] [address] [place] [address] PRIMARY CARE PHYSICIAN: Maren Ortiz MD CHIEF [...] TIBC - CBC + DIFF (FOR REMOTE [facility] USE) - BASIC METABOLIC PNL [...] 2017. 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 Follows with Dr. Bateman, vascular. She does exercise slightly 3 days a week and works a [employer] in [facility]. Medications as of September 2017 [...] questions satisfactorily.. Ankit Hall D.O. Medical Oncologist [place], [place] Cc. Dr. Bateman.[facility]Day[facility] Vital Signs Date TimeVital SignValuePerforming HkyjuahrzTxoywlne97-47-4286 13:49-0500Body iitkxj049 cmCorey Greg DO Work Phone: [phone] [place], [place] [address]Stvbimtwoj97-36-8124 13:49-0500Body mass index (BMI) [Ratio]31 kg/b9Makyi Greg DO Work Phone: [phone])[facility] [place], [place] [address]Nmqosxiofk23-60-8589 13:49-0500Body .38 kgCorey Greg DO Work Phone: 1(437)[facility] [place], [place] [address]Jnyggodnwl26-40-3421 13:49-0500Diastolic blood mm[Hg]Sandy Greg DO Work Phone: 1(181)[facility] [place], [place] [address]Tioxcfhlfi37-97-0041 13:49-0500Systolic blood uyqwdxnm153 mm[Hg]Sandy Greg DO Work Phone: [phone])[address] [place], [place] 1661609-16-2025 13:48-0400Body uebogf29.76 kgCorey Greg DO Work Phone: 1([phone])[facility] [place], [place] [address]Jpqbbpyxov75-13-9061 13:48-0400Diastolic blood okdgodbv21 mm[Hg]Sandy Greg DO Work Phone: [phone])[address] [place], [place] 1661609-16-2025 13:48-0400Systolic blood bydfburb692 mm[Hg]Sandy Greg DO Work Phone: 1(924)[facility] [place], [place] [address]Hazlmdcsdb63-93-9675 16:09-0400Body .64 cmMaren Ortiz MD Work Phone: [phone])075-[address] [place], [place] [address]3808-21-2025 16:09-0400 Body mass index (BMI) [Ratio]29 kg/l3JwhmiwaMaren Ortiz MD Work Phone: [facility]08-21-2025 16:09-0400 Body .64 kgMaren Ortiz MD Work Phone: 1(057)862-[address] [place], [place] 4883808-21-2025 16:09-0400 Diastolic blood ztwusxlx60 mm[Hg]Maren Ortiz MD Work Phone: [facility]08-21-2025 16:09-0400 Heart rate61 /minDouglas Hoy MD Work Phone: [facility]08-21-2025 16:09-0400 Respiratory rate16 /Minerva Ortiz MD Work Phone: [facility]08-21-2025 16:09-0400 SaO2% (BldA) [Mass fraction]99 %Maren Ortiz MD Work Phone: [facility]08-21-2025 16:09-0400 Systolic blood mm[Hg]Maren Ortiz MD Work Phone: [phone]05-29-2025 16:30-0400 Body mfqaxc454.64 cmSt. [facility] Hospital05-29-2025 16:30-0400Body mass index (BMI) [Ratio]30.8 kg/c3UpwqdujccSt. Vincent Hospital05-29-2025 16:30-0400Body ydrmudotymb22.6 [degF][facility]05-29-2025 16:30-0400Body ecmwju39.69 kgSt. [facility] Hospital05-29-2025 16:30-0400Diastolic blood ntdfeymt98 mm[Hg][facility] 01-15-2025 16:30-0400Heart rate49 /[facility] 01-15-2025 16:30-0400Respiratory rate16 /[facility] 01-15-2025 16:30-1898SfX8% (BldA) [Mass fraction]100 %[facility]05-29-2025 16:30-0400Systolic blood icjnesxb117 mm[Hg][facility]02-13-2025 15:31-0500Body uffjgw940.64 cmSt. [facility] Hospital02-13-2025 15:31-0500Body mass index (BMI) [Ratio]32.1 kg/m2 [facility]02-13-2025 15:31-0500Body qxcibf83.[address] [facility]02-13-2025 15:31-0500Diastolic blood mm[Hg][facility]02-13-2025 15:31-0500Heart rate65 /min [facility]02-13-2025 15:31-0500Respiratory rate16 /min [facility]02-13-2025 15:31-5074UiM8% (BldA) [Mass fraction]100 %[facility]02-13-2025 15:31-0500Systolic blood ygnnqdwj408 mm[Hg][facility]11-21-2024 10:-0500 Body tuocwg698.64 cmSt. [facility] Hospital11-21-2024 10:-0500Body mass index (BMI) [Ratio]32.6 kg/b1OhvlrkosgSt. Vincent Hospital11-21-2024 10:-0500Body ifrzphddgns83 [degF][facility]11-21-2024 10:0500Body phzsyi59.68 kgSt. [facility]11-21-2024 10:-0500Diastolic blood pazbybqw662 mm[Hg][facility] 07-10-2024 10:-0500Heart rate62 /[facility] 07-10-2024 10:-0500Respiratory rate16 /[facility] 07-10-2024 10:-4882FsW9% (BldA) [Mass fraction]100 %[facility]11-21-2024 10:-0500Systolic blood ayiqjwus437 mm[Hg][facility]08-08-2024 16:25-0400Body ubkjgg913.64 cmSt. [facility] Hospital08-08-2024 16:25-0400Body mass index (BMI) [Ratio]32.3 kg/m2 [facility]08-08-2024 16:25-0400Body simupiytlwd71.9 [degF][facility]08-08-2024 16:25-0400Body qgctqy23.[address] [facility]08-08-2024 16:25-0400Diastolic blood wtwyjbqm54 mm[Hg][facility]08-08-2024 16:25-0400Heart rate53 /min [facility]08-08-2024 16:25-0400Respiratory rate16 /min [facility]08-08-2024 16:25-6040PeO8% (BldA) [Mass fraction]100 %[facility]08-08-2024 16:25-0400Systolic blood shkldego343 mm[Hg][facility]05-23-2024 15:58-0400 Body zdauvy332.64 cmSt. [facility] Hospital05-23-2024 15:58-0400Body mass index (BMI) [Ratio]33.5 kg/r1ZfkqqislzSt. Vincent Hospital05-23-2024 15:58-0400Body rltgivhdjou43.2 [degF][facility]05-23-2024 15:58-0400Body modddd41.34 kgSt. [facility] Hospital05-23-2024 15:58-0400Diastolic blood ektczinj12 mm[Hg][facility] 01-10-2024 15:58-0400Heart rate68 /[facility] 01-10-2024 15:58-0400Respiratory rate16 /[facility] 01-10-2024 15:58-4372BaS5% (BldA) [Mass fraction]100 %[facility]05-23-2024 15:58-0400Systolic blood smuvrfdl764 mm[Hg][facility]02-22-2024 15:51-0500Body wwsebe901.64 cmSt. [facility] Hospital02-22-2024 15:51-0500Body mass index (BMI) [Ratio]33.6 kg/m2 [facility]02-22-2024 15:51-0500Body aagvwqowsxq75.9 [degF][facility]02-22-2024 15:51-0500Body .[address] [facility]02-22-2024 15:51-0500Diastolic blood flktypsv49 mm[Hg][facility]02-22-2024 15:51-0500Heart rate72 /min [facility]02-22-2024 15:51-0500Respiratory rate16 /min [facility]02-22-2024 15:51-3426IlN6% (BldA) [Mass fraction]100 %[facility]02-22-2024 15:51-0500Systolic blood wvpvevoq971 mm[Hg][facility]11-09-2023 16:00-0500 Body oheriw543.72 cmEmagno Tiffanie Other [employer] Other 544031-19-2730 16:00-0500Body mass index (BMI) [Ratio] 31.35 kg/d6Wesrp Tiffanie Other [employer] Other 11-09-2023 16:00-0500Body vabapnjamqk90.3 [degF]Sekouparam Becerra Other [employer] Other 11-09-2023 16:00-0500Body .53 kgSekouparam Tiffanie Other [employer] Other 11-09-2023 16:00-0500Diastolic blood afdjgamn13 mm[Hg] Maeve Tiffanie Other [employer] Other 11-09-2023 16:00-0500Respiratory rate18 /minEmagno Tiffanie Other [employer] Other 11-09-2023 16:00-2501FxS5% (BldA) [Mass fraction]98 % Maeve Tiffanie Other [employer] Other 11-09-2023 16:00-0500Systolic blood hxryerhm483 mm[Hg] Maeve Becerra Other [employer] Other 08-17-2023 16:00-0400Body ywpohn697.72 cmEmagno Becerra Other [employer] Other 08-17-2023 16:00-0400Body mass index (BMI) [Ratio] 31.23 kg/u3Rlsbv Tiffanie Other [employer] Other 08-17-2023 16:00-0400Body iwhnnqreuqn22.4 [degF]Maeve Tiffanie Other [employer] Other 08-17-2023 16:00-0400Body zrjezq00.17 kgMaeve Tiffanie Other [employer] Other 045975-15-7770 16:00-0400Diastolic blood xhvvyiwh10 mm[Hg] Maeve Tiffanie Other [employer] Other 08-17-2023 16:00-0400Respiratory rate18 /minEmagno Becerra Other [employer] Other 08-17-2023 16:00-4806BgV6% (BldA) [Mass fraction]99 % Maeve Tiffanie Other [employer] Other 08-17-2023 16:00-0400Systolic blood ltojysou243 mm[Hg] Maeve Tiffanie Other [employer] Other 05-04-2023 17:00-0400Body keyhsy327.72 cmEcallieparam Tiffanie Other [employer] Other 05-04-2023 17:00-0400Body mass index (BMI) [Ratio] 31.14 kg/w0CxytrMaeve Becerra Other [employer] Other 05-04-2023 17:00-0400Body .5 [degF]Maeve Becerra Other [employer] Other 05-04-2023 17:00-0400Body esahxa06.9 kgMaeve Becerra Other [employer] Other 05-04-2023 17:00-0400Diastolic blood dbgzumvu90 mm[Hg] Maeve Becerra Other [employer] Other 05-04-2023 17:00-0400Respiratory rate18 /minEmagno Becerra Other [employer] Other 05-04-2023 17:00-7671KfW5% (BldA) [Mass fraction]98 % Maeve Becerra Other [employer] Other 05-04-2023 17:00-0400Systolic blood hxbayqlh863 mm[Hg] Maeve Becerra Other [employer] Other 02-09-2023 17:00-0500Body .72 cmEmagno Becerra Other [employer] Other 02-09-2023 17:00-0500Body mass index (BMI) [Ratio] 31.11 kg/q9WqurxMaeve Becerra Other [employer] Other 02-09-2023 17:00-0500Body yuudcnawbyo88.2 [degF]Maeve Becerra Other [employer] Other 02-09-2023 17:00-0500Body .81 kgMaeve Becerra Other [employer] Other 02-09-2023 17:00-0500Diastolic blood mm[Hg] Maeve Becerra Other [employer] Other 02-09-2023 17:00-0500Respiratory rate18 /minEmagno Sahnikisha Other [employer] Other 02-09-2023 17:00-9108FeI8% (BldA) [Mass fraction]98 % Maeve Sahnikisha Other [employer] Other 02-09-2023 17:00-0500Systolic blood ligwbraj662 mm[Hg] Maeve Tiffanie Other [employer] Other 11-17-2022 17:00-0500Body ekjisy798.72 cmEmagno Becerra Other [employer] Other 11-17-2022 17:00-0500Body mass index (BMI) [Ratio] 30.32 kg/i6Gfthj Tiffanie Other [employer] Other 11-17-2022 17:00-0500Body utsgjwynfrl55.1 [degF]Maeve Sahnikisha Other [employer] Other 11-17-2022 17:00-0500Body apmgqg71.45 kgMaeve Tiffanie Other [employer] Other 11-17-2022 17:00-0500Diastolic blood cwtujhgo34 mm[Hg] Maeve Tiffanie Other [employer] Other 11-17-2022 17:00-0500Respiratory rate18 /minEmagno Becerra Other [employer] Other 11-17-2022 17:00-1886VgY5% (BldA) [Mass fraction]99 % Maeve Becerra Other [employer] Other 11-17-2022 17:00-0500Systolic blood dwlbznke716 mm[Hg] Maeve Becerra Other [employer] Other 08-04-2022 16:40-0400Body igbdjw628.72 cmEmagno Becerra Other [employer] Other 08-04-2022 16:40-0400Body mass index (BMI) [Ratio] 30.47 kg/v9JkwzkaMeve Becerra Other [employer] Other 08-04-2022 16:40-0400Body qudkvyuzsza13.9 [degF]Maeve Becerra Other [employer] Other 08-04-2022 16:40-0400Body isamtg70.9 kgMaeve Becerra Other [employer] Other 08-04-2022 16:40-0400Diastolic blood fgqkomgn76 mm[Hg] Maeve Becerra Other [employer] Other 08-04-2022 16:40-0400Respiratory rate18 /minEmagno Becerra Other [employer] Other 08-04-2022 16:40-9916PmU4% (BldA) [Mass fraction]99 % Maeve Becerra Other [facility] [employer] Other 08-04-2022 16:40-0400Systolic blood laqltecf633 mm[Hg] Maeve Becerra Other [employer] Other 12-21-2021 17:00-0500Body ufbheg761.72 cmEssparam Becerra Other [employer] Other 12-21-2021 17:00-0500Body mass index (BMI) [Ratio] 30.53 kg/y3MtxghMaeve Becerra Other [facility] Other 12-21-2021 17:00-0500Body jcruio29.08 kgMaeve Becerra Other [employer] Other 12-21-2021 17:00-0500Diastolic blood mm[Hg] Maeve Becerra Other [employer] Other 12-21-2021 17:00-0500Respiratory rate18 /minEmagno Becerra Other [employer] Other 12-21-2021 17:00-5150OxV9% (BldA) [Mass fraction]99 % Maeve Becerra Other [employer] Other 12-21-2021 17:00-0500Systolic blood ixpovtrv426 mm[Hg] Maeve Becerra Other [employer] Other Encounters Encounter DateEncounter TypeCare ProviderFacilityStart: 06-23-2025 End: 06-72-9251Qvgtcqv encounter procedureCorey Greg DO Work Phone: [facility] OBGYNComment on above:Uterine leiomyoma, unspecified location; Menorrhagia with regular cycle; Request for sterilizationStart: 05-05-2025 End: 06-67-9162Nvoknz flowsheetCorey Greg DO Work Phone: [facility] OBGYNStart: 05-05-2025 End: 05-75-4610Zpczko flowsheetCorey Greg DO Work Phone: [facility] OBGYNStart: 05-05-2025 End: 63-16-4646Tekdpa outpatient visit 15 minutesCorey Greg DO Work Phone: [facility] Og OBGYNComment on above:Pelvic pain in female; Uterine leiomyoma, unspecified locationStart: 05-05-2025 End: 80-67-7510gulrhodxubIJIGF FAZIONot AvailableStart: 04-09-2025 End: 08-32-7618hmeuydxgkuNsigxvk M Hoy MD Work Phone: [facility] Work Phone: Start: 04-09-2025 End: 66-60-9559Lzzauey encounter procedureMaeve Becerra MD-[facility] Work Phone: Start: 01-15-2025 End: 87-72-6317zwqgwewpjkByrekrzlxOhioHealth [facility] Work Phone: Start: 01-15-2025 End: 42-97-0920Dgrcuzr encounter [facility]Nov[facility] Work Phone: Start: 10-02-2024 End: 64-96-2705ahqyxvdjpdZtucivttsOhioHealth [facility] Work Phone: Start: 10-02-2024 End: 94-96-9951Turxnnw encounter procedureNov[facility] Work Phone: start: 07-10-2024 End: 15-02-0837nszwfkwdiuVsgkeicbcSumma Health [facility] Work Phone: Start: 07-10-2024 End: 55-74-0955Tuqjmxl encounter procedureNov[facility] Jyoti Work Phone: Start: 03-27-2024 End: 24-07-4558hzowokrzrsTdmhbqeozOhioHealth [facility] Work Phone: Start: 03-27-2024 End: 02-38-0705Szdjxti encounter procedureNov[facility] Work Phone: Start: 45-94-1264Ttu-patient / Non-visitVenanciovcu health [facility] Work Phone: Start: 01-10-2024 End: 89-75-8623vowciaedxdBdnyhmjkoSumma Health [facility] Work Phone: Start: 01-10-2024 End: 44-37-9812Fubbyzc encounter procedureNov[facility] Work Phone: Start: 10-11-2023 End: 15-65-9511uufiqqytlmPsxziswlzSumma Health [facility] Work Phone: Start: 10-11-2023 End: 43-42-7377Oupoqqb encounter procedureNov[facility] Work Phone: Start: 06-28-2023 End: 36-32-3192duobboubouAaovn Elashi Other [employer] Other Start: 08-92-6140Vbobwe outpatient visit 15 minutes Essam Marleen NephrologyStart: 06-26-2023 End: 66-91-4275xyxwujxkcvFyepp Elashi Other [employer] Other Start: 83-00-5241Cwmfvejet encounterEssam ElashiFPG NephrologyStart: 05-07-2023 End: 60-69-9763xywvfdjffdRrdwu Elashi Other [employer] Other Start: 69-26-5863Onmylzovq encounterEssam ElashiFPG NephrologyStart: 04-05-2023 End: 72-08-6903sdruabypbgVnfix Elashi Other [employer] Other Start: 52-41-2043Abwlrh outpatient visit 25 minutes Essam ElashiFPG NephrologyStart: 03-27-2023 End: 34-40-7569hpbadbvixcLrgtp Elashi Other [employer] Other Start: 66-41-7646Clgrkuiht encounterEssam ElashiFPG NephrologyStart: 03-12-2023 End: 60-92-5003kedahpcdtmHvvjd Elashi Other [employer] Other Start: 53-39-4852Yjirynzpq encounterEssam ElashiFPG NephrologyStart: 12-21-2022 End: 90-04-7045yzbrbwxfqpKvdog Elashi Other [employer] Other Start: 85-58-6242Xtszlu outpatient visit 25 minutes Essam ElashiFPG NephrologyStart: 12-18-2022 End: 26-16-2300bbayphwulvOtpgm Elashi Other [employer] Other Start: 79-56-9985Wcmkygqrx encounterEssam ElashiFPG NephrologyStart: 12-13-2022 End: 08-93-5371gdhdfmildxKG ESSAM ELASHIFacility:Q6Psunv: 11-14-2022 End: 58-90-7640fnolzshdihRO MAREN ORTIZ .Facility:S9Qltio: 03-21-4819Jzsvnovpm for general adult medical examination without abnormal findingsDR MAREN HOY . [facility]: 11-10-2022 End: 92-49-7860vkqplyxipwZG MAREN HOY .Facility:H5Efjcw: 11-10-2022 End: 15-14-7565Zvmpdqbxv for general adult medical examination without abnormal findingsDR MAREN HOY .Facility:C7Yycxg: 09-28-2022 End: 92-76-5246duugjbyfwjQsfcn Elashi Other [employer] Other Start: 22-92-5249Qwjtuk outpatient visit 25 minutes Essam ElashiFPG NephrologyStart: 09-26-2022 End: 43-42-4067irweqfhyygVD ESSAM ELASHIFacility:P5Xppkx: 07-06-2022 End: 73-55-6687prqbjehpdwMvtpw Elashi Other [employer] Other Start: 98-24-8348Jlkpaw outpatient visit 25 minutes Essam ElashiFPG NephrologyStart: 07-04-2022 End: 53-71-9283szktvlzofyAfnfn Elashi Other [employer] Other Start: 46-36-7406Fqppvzgve encounterEssam ElashiFPG NephrologyStart: 06-29-2022 End: 04-55-4920jdtuiijsxmDH ESSAM ELASHIFacility:V5Rfztt: 05-25-2022 End: 36-50-4193ettjfmfgfmNF ESSAM ELASHIFacility:J9Yihcd: 04-25-2022 End: 16-61-4290zdfblogdczKH ESSAM ELASHIFacility:Y4Qmazd: 04-17-2022 End: 14-53-4123keedwzlbifDutld Elashi Other [employer] Other Start: 46-02-9458Qgagvmipo encounterEssam ElashiFPG NephrologyStart: 03-23-2022 End: 46-53-2173hajysnkzteSybag Elashi Other [employer] Other Start: 39-43-2324Hjookv outpatient visit 25 minutes Essam ElashiFPG NephrologyStart: 03-22-2022 End: 23-95-7045gwhloshwzjTY ESSAM ELASHIFacility:Q9Ljsmp: 02-06-2022 End: 45-84-7851hgsheotwvnSY ESSAM ELASHIFacility:J5Cyodt: 01-13-2022 End: 48-37-1924fsuqsjofowQR ESSAM KISHACarpinteria [employer] Other Start: 90-18-0869Jsplgbcrk encounterEssam ElashiFPG NephrologyStart: 10-04-2021 End: 37-15-2244poqziuswvhBztjq Elashi Other [employer] Other Start: 19-50-3501Vyuratuko encounterEssam ElashiFPG NephrologyStart: 09-14-2021 End: 08-14-1756tbuqwbatxqZtfzx Elashi Other [employer] Other Start: 92-46-2998Erxbfauog encounterEssam ElashiFPG NephrologyStart: 08-09-2021 End: 80-90-5890atfnystgetChfti Elashi Other [employer] Other Start: 42-81-1482Wnqzau outpatient visit 25 minutes Essam ElashiFPG NephrologyStart: 07-26-2021 End: 24-12-2008hltclkpeswSnvff Elashi Other [employer] Other Start: 91-36-3165Nraomtqvy encounterEssam ElashiFPG Referral CoordinatorStart: 09-28-2020 End: 95-28-0579vmrobfzuukMzrlt Tiffanie Other [employer] Other Start: 31-13-4139Iodzbjtzq encounterEssam [facility] Nephrology Procedures DateProcedureProcedure DetailPerforming ClinicianStart: 91-50-5715TRRDZKFKGSP BIOPSYCorey Greg DO Work Phone: Start: 75-67-9212Kembk test visual color cmprsn methsCorey Greg DO Work Phone: Plan of Treatment DateCare ActivityDetailAuthorStart: 07-23-2025 End: 48-73-5645Gmvvrkjmwult / ancillary services havvkthxxi73/04/2025 8:00 AM EST Ancillary Procedure [facility] [address] [place] [address] [facility] OBGYNStart: 06-10-2025 End: 15-64-0472Qbxjvmh encounter /22/2025 3:30 PM EDT Procedure Visit [facility] [address] [place] [address] Sandy Garza DO [address] [place], [place] [id number] [facility] OBGYNStart: 05-05-2025 End: 68-18-0202IG PelvisUS Pelvis w/ TV Imaging Routine Pelvic pain in female Uterine leiomyoma, unspecified location Expected: 05/05/2025, Expires: 11/02/2025[facility] Work Phone: comment on above:Expected: 05/05/2025, Expires: 11/02/2025Start: 05-05-2025 End: 49-16-5174Hfwqfsk encounter ecwqcxlik99/16/2025 1:40 PM EDT Office Visit [facility] [address] [place] [address] Sandy Garza DO [address] [place] [address] [place] [address] Gerardo [place] OBGYNComment on above:ArrivedStart: 48-64-9182UMKLA-19 Vaccine ( season)COVID-19 Vaccine ( season)[facility] HealthcareStart: 55-61-0815Hnoibcuht vaccinationInfluenza Vaccine (#1)[facility] HealthcareStart: 33-50-0827Xehptcwuo for malignant neoplasm of breastMammogramNOMS HealthcareStart: 83-95-8019Sjhqbygxd for malignant neoplasm of cervixNOMS HealthcareStart: 87-10-1409Jybdkwekl for malignant neoplasm of cervixPap SmearNOID HealthcareComprehensive metabolic 1999 panel - Serum or [facility] 1999 panel - Serum or [facility] metabolic 1999 panel - Serum or [facility] Comprehensive metabolic 1999 panel - [facility] - Serum or [facility] HospitalCompre[facility]ve metabolic 1999 panel - Serum or [facility] metabolic 1999 panel - Serum or Plasma [facility] HospitalPhospholipase A2 receptor IgG Ab [Units/volume] in Serum by ImmunoassaySt. Vincent HospitalTissue examTissue exam Pathology and Cytology Routine Uterine leiomyoma, unspecified location Ordered: 06/23/2025[facility] Work Phone: comment on above:Ordered: 06/23/2025[facility] Immunizations Immunization DateImmunizationNotesCare [id number] virus vaccine, unspecified formulationCorey Greg DO Work Phone: [facility] Healthcare Payers DatePayer CategoryPayerPolicy [id number] Care HMO (unspecified)[employer] [id number] [id number] 2.0.1.746542.3.57[id number] 2.0.1.265838.3.57[id number] 2..1.533995.3.57[id number] 2..1.799910.3.57[id number] 2.0.1.610405.3.57[id number] 2.0.1.449859.3.57[id number] 2.0.1.536411.3.57[id number] 2..1.553697.3.57[id number] 2.0.1.505843.3.57[id number] 2.0.1.555538.3.57[id number] 2.16.840.1.088267.3.579.2.658950-24-0012Ruephpj Health [id number] 2.16.840.1.079026.19Private Health InsuranceAetna Insurance [id number] Pay [id number] [id number] Social History DateTypeDetailFacilityUnknown if ever smokedCarpinteria Enviroo Other Sex Assigned At AddFleetCarpinteria Enviroo Other Start: 10-11-2023 End: 46-73-3541Kmdjbip smoking status NHISNever smoked tobacco (finding) [facility] Hospitaltart: 62-31-1578Ovv Assigned At [facility] HospitalFeKing[facility] Ohiotart: 07-10-2024 End: 43-52-4632XxkZvyzox (finding)[facility] HospitalTobaarbuckle [facility] smoking status NHISTobacco smoking consumption [facility] HospitalStart: 46-44-3050Pxy assigned at birthNot on fileMercy McCune-Brooks HospitalStart: 27-05-5659Hwy FemaleMercy [facility] Clinical Notes 09-28-2020 to 06-23-2025 Note Date & ZtoiCfddPgyawzvn13-02-8030 History of Present illness Narrative* Isabel Kincaid, DIDIER - 06/23/2025 1:30 PM ESTAssociated Order(s): Endometrial [...] nursing note reviewed. Exam conducted with a tire classifier present. Vitals: Estimated body mass index is 31 kg/m as calculated from the following: Height as [...] biopsy Date/Time: 06/23/2025 2:09 PM Performed by: Sandy Garza DO Authorized by: Sandy Garza DO Consent: Consent obtained: written Consent [...] of: Sandy Garza DO documented in this encounterMercy McCune-Brooks HospitalSddhxatwsa31-50-6887 History of Present illness Narrative* Isabel Kincaid LPN - 05/05/2025 1:40 PM EDT Reason for [...] nursing note reviewed. Exam conducted with a tire classifier present. Vitals: There is no height or [...] of: Sandy Garza DO documented in this [facility]05-29-2025 Evaluation note* Diagnosis Onset Date Resolution Status [...] through stage 4 chronic kiacuteAugust 2024 4:08pm [facility] Work Phone: 1(892) 455-310911-21-2024 Evaluation note* Diagnosis Onset Date Resolution Status Admit Date ADPKD (autosomal dominant polycystic 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) acuteJuly 10, 2024 3:50pmCKD (chronic kidney disease) stage 4, GFR 15-29 ml/minacuteNovember 2023 3:50pmFactor V LeidenacuteNovember 2023 3:50pmHypertensive chronic kidney disease with stage 1 through stage 4 chronic kiacuteNovember 2023 3:50pmADPKD (autosomal dominant polycystic kidney disease)acuteFebruary 2024 3:29pmCKD (chronic kidney disease) stage 4, GFR 15-29 ml/minacuteFebruary 2024 3:29pmFactor V LeidenacuteFebruary 2024 3:29pmHypertensive chronic kidney disease with stage 1 through stage 4 chronic kiacuteFebruary 2024 3:29pm [facility] Work Phone: [phone]) 956-588811-09-2023 Evaluation note* Encounter Date Diagnosis Assessment Notes [...] She was informed that they may need SWATCH CLERK in near future. Will refer to transplant [...] more than 140s. She has no proteinuria. 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 Will refer to transplant [...] more than 40s. She has no proteinuria. [facility] Other 05-04-2023 Evaluation note* Encounter Date Diagnosis [...] She was informed that they may need SWATCH CLERK in near future. Will refer to transplant [...] more than 140s. She has no proteinuria. [facility] Other 02-09-2023 Evaluation note* Encounter Date Diagnosis [...] She was informed that they may need SWATCH CLERK in near future. Will refer to transplant [...] to check blood pressure at my office. [facility] Other 11-17-2022 Evaluation note* Encounter Date Diagnosis [...] She was informed that they may need SWATCH CLERK in near future. Will refer to transplant [...] She has no bleeding events or hematuria. [facility] Other 08-04-2022 Evaluation note* Encounter Date Diagnosis [...] She was informed that they may need SWATCH CLERK in near future. Will refer to transplant [...] She has no bleeding events or hematuria. 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.3) [facility] Other Evaluation noteNort [facility] Other Evaluation noteNo InformationNolakeland regional hospital [facility] Other Evaluation note* Diagnosis Onset Date Resolution Status ADPKD (autosomal dominant polycystic 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) acuteCKD stage G4/A3, GFR 15-29 and albumin creatinine ratio >300 mg/gacute Factor V [id number] [facility] Work Phone: Evaluation note* Diagnosis Onset Date Resolution Status ADPKD (autosomal dominant polycystic 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) acuteCKD stage G4/A3, GFR 15-29 and albumin creatinine ratio >300 mg/gacute Factor V PgngjaegfjjHET-[id number] kidney diseasenoneactive ADPKD (autosomal dominant polycystic kidney disease)acuteCKD (chronic kidney disease) stage 4, GFR 15-29 ml/minacuteCKD stage G4/A3, GFR 15-29 and albumin creatinine ratio >300 mg/gacuteFactor V XleefbrrxpiCDY-[id number] [facility]stic dys[facility]Reg[facility] Work Phone: Evaluation note* Diagnosis Onset Date Resolution Status Admit Date ADPKD (autosomal dominant polycystic 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) acuteNov2023 3:50pmCKD (chronic kidney disease) stage 4, GFR 15-29 ml/minacuteNov2023 3:50pmFactor V LeidenacuteNov2023 3:50pmHypertensive chronic kidney disease with stage 1 through stage 4 chronic kiacuteNovember 2023 3:50pm [facility] Work Phone: Evaluation note* Diagnosis Onset Date Resolution Status Admit Date ADPKD (autosomal dominant polycystic 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) acuteMa2024 4:03pmCKD (chronic kidney disease) stage 4, GFR 15-29 ml/min acuteMay 2024 4:03pmFactor V LeidenacuteMay 2024 4:03pmHypertensive chronic kidney disease with stage 1 through stage 4 chronic kiacuteMay 2024 4:03pm [facility] Work Phone: Evaluation note* Diagnosis Pelvic pain in female Unspecified symptom associated with female genital organs Uterine leiomyoma, unspecified location documented in this encounter NOMS HealthcareEvaluation note* Diagnosis Uterine leiomyoma, unspecified location Menorrhagia with regular cycle Request for sterilization documented in this encounter NOMS HealthcareHistory general Narrative - ReportedNoGeisinger [facility] [employer] Other History general Narrative - Reported* Type Description Date Medical History PCOS Medical Historyprevious blood clot in leg X 2Medical HistoryCAPILLARY HEMANGIOMA Medical HistoryFACTOR V LEIDEN MUTATIONSurgical HistoryWISDOM TEETH X4 Hospitalization HistoryCHILD X 2Hospitalization HistoryBLOOD CLOT [facility] Other History general Narrative - Reported* Type Description Date Medical History PCOS Medical Historyprevious blood clot in leg X 2Medical HistoryCAPILLARY HEMANGIOMA Medical HistoryFACTOR V LEIDEN MUTATIONSurgical HistoryWISDOM TEETH K1Egreiubr HistoryEVLT ON RIGHT LEGHospitalization HistoryCHILD X 2Hospitalization HistoryBLOOD CLOT [facility] Other Reason for referral (narrative)No reason for referral information availableTrinity Health System [facility] Work Phone: Summary Purpose Family History Relationship Condition Age at Onset Recorded Date/T nilda brother Polycystic kidney disease Unknown fatherPolycystic kidney diseaseUnknown Advance Directives Advance Directive Response Recorded Date/ Time Advance Directives No July 5:07pm Advance Directive Response Recorded Date/ Time Advance Directives No July 6:07pm Chief Complaint and Reason for Visit Chief Complaint renal 3 month f/u Reason for Visit ADPKD (autosomal dom inant polycystic kidney disease) CKD stage G4/A3, GFR 15-29 and albumin creatinine ratio >300 mg/g Factor V Leiden [id number] Chief Complaint RENAL 3 MONTH F/U Reason for Visit ADPKD (autosomal dom inant polycystic kidney disease) CKD stage G4/A3, GFR 15-29 and albumin creatinine ratio >300 mg/g Factor V Leiden [id number] Chief Complaint RENAL 3 MONTH F/U RENAL 3 MONTH F/UReason for VisitADPKD (autosomal dominant polycystic kidney disease) CKD stage G4/A3, GFR 15-29 and albumin creatinine ratio >300 mg/g Factor V Leiden [id number] Polycystic kidney disease ADPKD (autosomal dominant polycystic kidney disease) CKD (chronic kidney disease) stage 4, GFR 15-29 ml/min CKD stage G4/A3, GFR 15-29 and albumin creatinine ratio >300 mg/g Factor V Leiden [id number] Polycystic dysplastic kidney Chief Complaint Admit Date [...] 2025 4:03pm Chief Complaint Admit Date 3 January 15, 2025 4:03p m RENAL 3 [...] section and content) DATE CREATED AUTHOR 09/06/2019 [facility] DATE CREATED AUTHOR AUTHOR'S ORGANIZ ATION 12/17/2022 [facility] DATE CREATED AUTHOR AUTHOR'S ORGANIZ ATION 06/12/2025 [facility] EPIC REASON FOR VISIT (unrecogniz ed section and content) ReasonCommentsDiscuss Pelvic PainReasonCommentsEMBX Care Teams (unrecognized sec tion and content) Team Status: Active Member Role Status Dates Maren Ortiz MD Primary Care Provider Active Team Status: Inactive Member Role Status Dates Maren Ortiz MD Primary Care Provider Active Start: October 11, 2023 End: October 11, 2023Essam Tiffanie , MDAttending ProviderActiveStart: October 11, 2023 End: October 11, 2023 Team Status: Active Member Role Status Sheridan Ortiz MD Primary Care Provider Active Start: October 11, 2023 Maeve Becerra , CHECOttending ProviderActiveStart: October 11, 2023 Team Status: Inactive Member Role Status Sheridan Ortiz MD Primary Care Provider Active Start: January 10, 2024 End: January 10, 2024Essam Tiffanie , MDAttending ProviderActiveStart: January 10, 2024 End: January 10, 2024 Team Status: Active Member Role Status Sheridan Ortiz MD Primary Care Provider Active Start: March 20, 2024 Maeve Becerra , CHECOttending ProviderActiveStart: March 20, 2024 Team Status: Inactive Member Role Status Sheridan Ortiz MD Primary Care Provider Active Start: March 27, 2024 End: March 27, 2024Essam Tiffanie , MDAttending ProviderActiveStart: March 27, 2024 End: March 27, 2024 Team Status: Inactive Member Role Status Sheridan Ortiz MD Primary Care Provider Active Start: July 10, 2024 End: July 10, 2024Sekouam Tiffanie , CHECOttending ProviderActiveStart: July 10, 2024 End: July 10, 2024 Team Status: Inactive Member Role Status Sheridan Ortiz MD Primary Care Provider Active Start: October 02, 2024 End: October 02, 2024Essam Tiffanie , MDAttending ProviderActiveStart: October 02, 2024 End: October 02, 2024 Team Status: Inactive Member Role Status Sheridan Ortiz MD Primary Care Provider Active Start: January 15, 2025 End: January 15, 2025Essam Tiffanie , CHECOttending ProviderActiveStart: January 15, 2025 End: January 15, 2025 Team Status: Inactive Member Role Status Sheridan Ortiz MD Primary Care Provider Active Start: April 09, 2025 End: April 09, 2025Essam Tiffanie , MDAttending ProviderActiveStart: April 09, 2025 End: April 09, 2025Team MemberRelationshipSpecialtyStart DateEnd Date Maren Ortiz MD [address] [facility] [phone] PCP - [facility]05/05/25Team MemberRelationshipSpecialtyStart DateEnd Date Maren Ortiz MD [address] [facility] [place] [address] PCP - [facility]05/05/25Team MemberRelationshipSpecialtyStwilson DateEnd Maren Ortiz MD [address] [facility] [place] [phone] PCP - [facility]05/05/25 Goals (unrecognized section and [...] BE BASED ON THE PRIMARY CLINICAL RECORDS. [employer] [facility]. provides no warranty or guarantee of the accuracy or completeness of information in this document.
[2025-06-23 15:12] LABS: Hematocrit 41.7 % (36.0-48.0); Hemoglobin 13.2 g/dL (12.0-16.0); Mean Corpuscular HGB Conc 31.7 g/dL (29.9-35.2); Mean Corpuscular Hemoglobin 28.7 pg (26.7-34.0); Mean Corpuscular Volume 90.7 fL (81.0-99.0); Platelet Count 132 10^3/uL (150-450); Red Blood Count 4.60 10^6/uL (4.20-5.40); White Blood Count 7.9 10^3/uL (4.0-11.0)
[2025-06-23 15:19] LABS: Glucose Urine UA NEGATIVE (NEGATIVE)
[2025-06-23 15:30] LABS: Alanine Aminotransferase 19 U/L (14-59); Albumin Globulin Ratio 1.3; Albumin Level 4.0 g/dL (3.4-5.0); Alkaline Phosphatase 31 U/L (46-116); Anion Gap 11.8; Aspartate Amino Transferase 13 U/L (15-37); Blood Urea Nitrogen 33.0 mg/dL (7.0-18.0); Calcium 9.0 mg/dL (8.5-10.1); Carbon Dioxide 26.2 mmol/L (21.0-32.0); Chloride 107 mmol/L (98-107); Estimated GFR (African America 25 (>=60 mL/min/1.73m^2); Estimated GFR (Non-African Ame 21 (>=60 mL/min/1.73m^2); Globulin 3.1 g/dL; Glucose 95 mg/dL (74-106); Potassium 4.0 mmol/L (3.5-5.1); Sodium 141 mmol/L (136-145); Total Protein 7.1 g/dL (6.4-8.2)
== END 2025-06-23 14:32 | disposition home or self-care (01) ==
LOC: LAB 14:31
PROVIDERS: PCP Family Medicine; Visit Provider Internal Medicine Nephrology
DX: Q61.2 Polycystic kidney, adult type (principal); N18.4 Chronic kidney disease, stage 4 (severe); I12.9 Hypertensive chronic kidney disease with stage 1 through stage 4 chronic kidney disease, or unspecified chronic kidney disease; N25.81 Secondary hyperparathyroidism of renal origin; D63.1 Anemia in chronic kidney disease
CPT/HCPCS: 36415; 80053; 81003; 83516; 83970; 85027

== ENCOUNTER 2025-07-03 07:58 | Outpatient (OUT) | payer OTHER, SELFPAY ==
--- OUTSIDE RECORDS SUMMARY | 2025-06-23 13:30 | XMS_ITS | Encounter Summary ---
Author Organization [facility] Address [address] [place] [address] Care Team Providers Care Internet Designer Name Role Phone Maulik James MD Primary Care Provider [phone] Reason for Visit * ReasonCommentsEMBX Encounter Details DateTypeDepartmentCare Team (Latest Contact Info)Ygykvangtpo81/04/2025 1:30 PM ESTProcedure Visit [facility] [address] [address] Tin Garza DO [address] [facility] [address] [place], [place] [id number] Uterine leiomyoma, unspecified location; Menorrhagia with regular cycle; Request for sterilization Social History Tobacco UseTypesPacks/DayYears UsedDateSmoking Tobacco: Never Assessed CommentsNoSex and Gender InformationValueDate RecordedSex Assigned at BirthNot on fileLegal MliCbzkik62/15/2023 11:47 PM EDTGender IdentityNot on fileSexual OrientationNot on filedocumented as of this encounter Last Filed Vital Signs Vital SignReadingTime TakenCommentsBlood Ocfkazrx917/80108/23/2024 1:49 PM EST Pulse--Temperature--Respiratory Rate--Oxygen Saturation--Inhaled Oxygen Concentration--Yfezzm32.4 kg (175 lb)06/23/2025 1:49 PM XLDYrwvkf177 cm (5' 3 ) 06/23/2025 1:49 PM ESTBody Mass Isdso480906/23/2025 1:49 PM ESTdocumented in this encounter Progress Notes * Isabel Kincaid LPN - 06/23/2025 1:30 PM ESTAssociated Order(s): Endometrial biopsy Post-Procedure Diagnose(s): Menorrhagia with regular cycle; Uterine leiomyoma, unspecified location Reason for Appointment: Patient ID: Isabel Rivera is a 44 y.o. female who presents for EMBX Patient presents today for a Endometrial Biopsy appointment. MEDICATIONS Current Outpatient Medications Medication Instructions cetirizine (ZyrTEC) 10 MG chewable tablet Every 24 hours pantoprazole (ProtoNix) 40 MG EC tablet TAKE 1 TABLET BY MOUTH EVERY DAY; Duration: 90 Tolvaptan (Jynarque) 90 & 30 MG tablet therapy pack as directed Orally Tolvaptan 60 & 30 MG tablet therapy pack Xarelto 20 MG tablet TAKE 1 TABLET BY MOUTH EVERY DAY; Duration: 90 ALLERGIES Allergies Allergen Reactions Sulfa Antibiotics Hives and Rash Other Reaction(s): rash Sulfamethoxazole-Trimethoprim Hives and Rash PROBLEMS Active Ambulatory Problems [...] No family history on file. SURGICAL HISTORY History reviewed. No pertinent surgical history. REVIEW OF SYSTEMS Review of Systems: Review of Systems Constitutional: Negative. HENT: Negative. Eyes: Negative. Respiratory: Negative. Cardiovascular: Negative. Gastrointestinal: Negative. Genitourinary: Positive for menstrual problem. Musculoskeletal: Negative. Skin: Negative. Neurological: Negative. All other systems reviewed and are negative. Hematological: Negative. Endocrine: Negative. Allergic/Immunologic: Negative. OBJECTIVE Objective: Physical Exam Constitutional: Appearance: Normal appearance. She is well-developed. Genitourinary: Vulva normal. Cardiovascular: Rate and Rhythm: Normal rate and [...] nursing note reviewed. Exam conducted with a electric distribution engineer present. Vitals: Estimated body mass index is 31 kg/m?? as calculated from the following: Height as of this encounter: 5' 3 . Weight as of this encounter: 175 lb. BP: 110/80 Patient's last menstrual period was 05/20/2025 (approximate). ASSESSMENT & PLAN Assessment/Plan Encounter Diagnosis: ICD-10-CM 1. Uterine leiomyoma, unspecified location D25.9 Tissue exam 2. Menorrhagia with regular cycle N92.0 POCT , urine manually resulted 3. Request for sterilization Z30.2 Endometrial biopsy Date/Time: 06/23/2025 2:09 PM Performed by: Tin Garza DO Authorized by: Tin Garza DO Consent: Consent obtained: written Consent given by: patient Risks discussed: bleeding Alternatives discussed: observation Patient agrees, verbalizes understanding, and wants to proceed: yes Indications: Indications: abnormal uterine bleeding Pre-procedure: Urine test: negative Procedure: A bimanual exam was performed: no Prepped with: none Tenaculum used: yes A local block was performed: no Cervix dilated: no Findings: Cervix: normal Specimen collected: specimen collected and sent to pathology Comments: Procedure comments: EMBX: Patient was placed in dorsal lithotomy position with feet in stirrups. A sterile speculum was placed into the vagina and the cervix was visualized. The cervix was grasped with a single tooth tenaculum. The endometrial pipette was placed through the cervix into the uterus, endometrial curettage was performed and sampling was obtained, endometrial curettings were placed in formalin, and single tooth tenaculum was removed. Excellent hemostasis was assured. All instruments were removed from vagina. Follow Up: Patient is to return Pt to be scheduled for bilateral salpingectomy and endometrial ablation Documented by Isabel Kincaid LPN on behalf of: Tin Garza DO documented in this encounter Plan of Treatment DateTypeDepartmentCare Team (Latest Contact Info)Bkrscjesvdd38/04/2025 8:00 AM ESTAncillary Procedure [facility] [address] [place] [address] 08/05/2025 2:40 PM ESTConsult [facility] [address] [place] [phone] Tin Garza DO [address] [facility] [place] [address] NameTypePriorityAssociated DiagnosesOrder ScheduleTissue examPathology and CytologyRoutine Uterine leiomyoma, unspecified location Ordered: 06/23/2025documented as of this encounter Procedures Procedure NamePriorityDate/TimeAssociated DiagnosisCommentsENDOMETRIAL BIOPSY Xugugea1406/23/2025 2:09 PM EST Uterine leiomyoma, unspecified location Menorrhagia with regular cycle POCT , KNXWSDwagwbr18/04/2025 1:55 PM EST Menorrhagia with regular cycle documented in this encounter Results * Endometrial biopsy (06/23/2025 2:09 PM EST) Isabel Wagner LPN - 06/23/2025 2:09 PM EST Isabel Kincaid LPN 06/23/2025 2:19 PM Endometrial biopsy Date/Time: 06/23/2025 2:09 PM Performed by: Tin Garza DO Authorized by: Tin Garza DO ?? Consent: ??Consent obtained: written ??Consent given by: patient ??Risks discussed: bleeding ??Alternatives discussed: observation ??Patient agrees, verbalizes understanding, and wants to proceed: yes ?? Indications: ??Indications: abnormal uterine bleeding ?? Pre-procedure: ??Urine test: negative ?? Procedure: ??A bimanual exam was performed: no ?Prepped with: none ??Tenaculum used: yes ?A local block was performed: no ?Cervix dilated: no ?? Findings: ??Cervix: normal ?Specimen collected: specimen collected and sent to pathology ?? Comments: ??Procedure comments: EMBX: Patient was placed in dorsal lithotomy position with feet in stirrups. A sterile speculum was placed into the vagina and the cervix was visualized. The cervix was grasped with a single tooth tenaculum. The endometrial pipette was placed through the cervix into the uterus, endometrial curettage was performed and sampling was obtained, endometrial curettings were placed in formalin, and single tooth tenaculum was removed. Excellent hemostasis was assured. All instruments were removed from vagina. Follow Up: Patient is to return ?? Pt to be scheduled for bilateral salpingectomy and endometrial ablation Authorizing ProviderResult TypeResult StatusTin [place] CLINIC/BEDSIDE ORDERABLESFinal Result * POCT , urine manually resulted (06/23/2025 1:55 PM EST)ComponentValue Ref RangeTest MethodAnalysis TimePerformed AtPathologist SignaturePreg Test, UrNegativeNegativeSpecimen (Source)Anatomical Location / LateralityCollection Method / VolumeCollection TimeReceived RjkuYsdvi29/04/2025 1:55 PM EST Narrative Authorizing ProviderResult TypeResult StatusTin Garza DOPOINT OF CARE TEST ENTER/EDIT ORDERABLESFinal Result documented in this encounter Visit Diagnoses Diagnosis Uterine leiomyoma, unspecified location Menorrhagia with regular cycle Request for sterilization documented in this encounter Care Teams Team MemberRelationshipSpecialtyStart DateEnd Date Maulik James MD [address] [place] [address] PCP - GeneralFamily Medicine05/05/25documented as of this encounter
--- OUTSIDE RECORDS SUMMARY | 2025-07-02 11:21 | XMS_ITS | Continuity of Care Document ---
Author Organization [facility] Address [address] [place] [address] Phone Care Team Providers Care Sql Report Writer Name Role Phone Maulik James MD Primary Care Provider Maeve Moreno MD Attending Provider Tin Garza DO Attending Provider Care Teams Patient Care Team Team Status: Active Member Role/Relationship Status Dates Maulik James MD Primary Care Provider Active Visit Care Team Team Status: Inactive Member Role/Relationship Status Dates Maulik James MD Primary Care Provider Active Start: April 09, 2025 End: April 09, 2025Ashwini Medina ProviderActiveStart: April 09, 2025 End: April 09, 2025 Visit Care Team Team Status: Inactive Member Role/Relationship Status Dates Tin Garza DO Attending Provider Active Start : June 23, 2025 End: June 23, 2025 Patient Care Team Team Status: Inactive Member Role/Relationship Status Dates Maeve Moreno MD Attending Provider Active Star t: July 02, 2025 End: July 02, 2025Cece Champion Care ProviderActiveStart: July 02, 2025 End: July 02, 2025 Chief Complaint and Reason for Visit Chief Complaint Admit Date RENAL 3 MONTH F/U April 09, 2025 4: 08pm Unknown June 23, 2025 1 :00pm renal 3 month f/u July 02, 2025 3:52pm Reason for Visit Admit Date Abdominal pain [place] 21st, 2025 4: 08pm ADPKD (autosomal dominant polycystic 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) April 09, 2025 4:08pm CKD (chronic kidney disease) stage 4, GF R 15-29 ml/min April 09, 2025 4:08pm Factor V Leiden April 09, 2025 4: 08pm Hypertensive chronic kidney disease with stage 1 through stage 4 chronic ki April 09, 2025 4:08pm Abdominal pain July 02, 2025 3:52pm ADPKD (autosomal dominant polycystic 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) July 02, 2025 3:52pm CKD (chronic kidney disease) stage 4, GF R 15-29 ml/min July 02, 2025 3:52pm Dysuria July 02, 2025 3:52pm Factor V Leiden July 02, 2025 3:52pm Hypertensive chronic kidney disease with stage 1 through stage 4 chronic ki July 02, 2025 3:52pm Allergies, Adverse Reactions, Alerts Allergen Type Severity Reaction Last Updated Verified Status Sulfa (Sulfonamide Antibiotics) Allergy Unknown rash July 01, 025 4:34pm Yes Active Social History Smoking Status Status Start Date End Date Date of Observa tion Never smoked tobacco (finding) October 02, 2024 3:32pm Observation Status Observation Response Date of Response Legal Sex Female (finding) Sex Assigned At BirthFemaleApril 1980 Family History Relationship Condition Age at Onset Recorded Date/T nilda brother Polycystic kidney disease Unknown fatherPolycystic kidney diseaseUnknown Problems Active Problems Problem Diagnosis/Recorded Date Onset Date Status C omments Polycystic dysplastic kidney October 11, 2023 2:13pm Un known Active CKD (chronic kidney disease) stage 4, GFR 15-29 ml/minFebruary 2023 2:13pm UnknownActiveADPKD (autosomal dominant polycystic kidney disease)October 11, 2023 11:09amUnknownActiveShe was started Jynarque 45 &30 mg daily [...] recommendation. She wasinformed that they may need ELECTRONICS INSPECTOR in near future. Will refer to transplant evaluation once GFR < 20 ml/min. She does not have a donor.Chronic progressive renal failure, stage 4 (severe)March 27, 2024 7:26pmUnknownActiveFactor V LeidenFebruary 2023 11:08amUnknownActivePatient has been on Xarelto for factor V. Leiden mutation. She has no recent blood clots. She has no bleeding events or hematuria.Hypertensive chronic kidney disease with stage 1 through stage 4 chronic kidney disease, or unspecified chronic kidney diseaseFebruary 2023 11:08amUnknownActiveDysuriaNovember 2024 4:16pmUnknownActiveCKD stage G4/A3, GFR 15-29 and albumin creatinine ratio >300 mg/gFebruary 2023 11:08amUnknownActiveRenal function has been quite variable since she was started on Jynarque. Currently creatinine 2.2 mg/dL, it has been variable between 1.6 to 2 mg/dL over the last year according to volume status andstate of hydration. Patient was advised to increase water intake since she is expected to have more urine output with tolvaptan.Abdominal painAugust 2024 3:56pmUnknownActive Medications Medication Status Dose Units Route Directions Qty Days Refills S tart Date Stop Date End Date Reason(s) Instructions Adherence Tolvaptan (Polycys Kidney Di s) (Jynarque) 90 mg (AM)/ 30 mg (PM) tablets, sequential Discontinued 0 POper package pphrsgjfqx92231Zkf 2023 10:04pmAugust 2023 8:33am Autosomal dominant polycystic kidney disease Polycystic kidney, adult typePO PER PKG DIRTolvaptan (Polycys Kidney Dis) (Jynarque) 90 mg (AM)/ 30 mg (PM) tablets, sequentialDiscontinued0.ROUTE.COMPLEX 565August 2023 8:31amAugust 2023 10:41amAutosomal dominant polycystic kidney disease Polycystic kidney, adult typeTAKE ONE 90 MG TABLET BY MOUTH UPON WAKING, THEN TAKE ONE 30 MG TABLET BY MOUTH 8 HOURS LATER EVERYDAYTolvaptan (Polycys Kidney Dis) (Jynarque) 90 mg (AM)/ 30 mg (PM) tablets, sequentialDiscontinued0.ROUTE .NIWUOVK056Kxiwdi 2023 10:41amOctober 2023 3:45pmAutosomal dominant polycystic kidney disease Polycystic kidney, adult typeTAKE ONE 90 MG TABLET BY MOUTH UPON WAKING, THEN TAKE ONE 30 MG TABLET BY MOUTH 8 HOURS LATER EVERYDAYTolvaptan (Polycys Kidney Dis) (Jynarque) 90 mg (AM)/ 30 mg (PM) tablets, sequentialDiscontinued0.ROUTE .JRRKYAW476Uowwjux 2023 3:44pmNovember 2023 4:33pmAutosomal dominant polycystic kidney disease Polycystic kidney, adult typeTAKE ONE 90MG TABLET BY MOUTH UPON AWAKING, AND ONE 30MG TABLET BY MOUTH 8 HOURS LATERTolvaptan (Polycys Kidney Dis) (Jynarque) 45 mg (AM)/ 15 mg (PM) tablets, pocawrysntVlfebydtimtb8OAbpl package July 21, 2024 3:37pmFebruary 2024 3:54pmPO PER PKG DIRTolvaptan (Polycys Kidney Dis) 60 mg (AM)/ 30 mg (PM) tablets, nwuefniutuArbezpacojlw4UJ per package pylkmfelzp560Sjqx 2024 9:47amSeptember 2024 3:07pmPO PER PKG DIRTolvaptan (Polycys Kidney Dis) 60 mg (AM)/ 30 mg (PM) tablets, sequential Knxwwtmcvewv6RAhqs package fsnxhvldnc184Gtginkdff 2024 3:07pmSeptember 2024 1:17pmPO PER PKG DIRTolvaptan (Polycys Kidney Dis) 60 mg (AM)/ 30 mg (PM) tablets, bwzugdlhbfLsykpgvtiqpn2ZPwxy package foedjkfnyg194Vxfnmcajd 2024 1:17pmOctober 2024 3:02pmPO PER PKG DIRTolvaptan (Polycys Kidney Dis) 60 mg (AM)/ 30 mg (PM) tablets, sequentialActive0.ROUTE.FFYWUFD338Vclyplu 2024 3:01pmPO PER PKG DIRComplies with drug therapyTolvaptan (Polycys Kidney Dis) (Jynarque) 45 mg (AM)/ 15 mg (PM) tablets, wuxlvxfsoqCaskduiykuri8FDkbh package nzeflufrdm907Dhtpfknv 2023 12:00amDecember 2023 3:37pmPO PER PKG DIRTolvaptan (Polycys Kidney Dis) 60 mg (AM)/ 30 mg (PM) tablets, sequential Ghikjrlkzquz2RWlgs package amuduefgmg996Qad 2024 11:00pmJune 2024 10:15amPO PER PKG DIRCetirizine (Zyrtec) 10 mg jtjpdkFclooq27VSMQVasrxAmqndegi 2023 12:00amFreeTextSi tablet on the tongue and allow to dissolve Orally Once a day; Note: Source Status: Taking; Provider: Tiffanie Mcfarlane ( )Complies with drug therapyRivaroxaban 20 mg xtaophNhqfmw38ZFUBJubqm February 2023 12:00amFreeTextSi tablet with food Orally Once a day; Note: Source Status: Taking; Provider: Tiffanie Mcfarlane BComplies with drug therapy Tolvaptan (Polycys Kidney Dis) (Jynarque) 90 mg (AM)/ 30 mg (PM) tablets, pavvgaulroEfdzuepocvyo4OVwcz package directionsFebruary 2023 12:00amMay 2023 10:05pmPO PER PKG DIRPantoprazole 40 mg tablet,delayed release (DR/EC) DiscontinuedMGPOFebruary 2023 12:00amAugust 2023 3:27pmPantoprazole 40 mg tablet,delayed release (DR/EC)Lqcmrp73AZDZKjppnJdwvyo 2023 3:26pm Complies with drug therapyTolvaptan (Polycys Kidney Dis) (Jynarque) 45 mg (AM)/ 15 mg (PM) tablets, extfcidrdjVwpitifusydv4NInus package nltikzizvv708Kprathjw 2024 3:53pmMay 2024 3:50pmPO PER PKG DIR Relevant Diagnostic Tests and/or Laboratory Data Laboratory Results Test Collection Date/Time Result Date/Time Result Interpretation Reference Range Result Comment Performing Site Miscellaneous Pathology Test June 23, 2025 1:42pm July 01, 2025 2:33pm See comment See report. Scanned copy available in EMR.[facility] [id number] [address] [place] [id number] Vital Signs Vital Reading Result Reference Range Collection Date/Time Height 66 [in_i] April 09, 2025 3:52czIzmikl11.64 kgAugust 2024 3:09pmHeart Rate61 /min 60-100August 2024 3:09pmRespiratory rate16 /ltu35-22Agtytb 21st, 2025 3:09pmOxygen saturation by Pulse gysgqtuv64 %95-100Au2024 3:09pmBP Lgvpidxr558 mm[Hg]100-140Au2024 3:09pmBP Yjxhxazre89 mm[Hg]60-100 April 09, 2025 3:09pmBMI (Body Mass Index)29.0 kg/c2AcblkmApril 09, 2025 3:09pm Agagau54 [in_i]July 02, 2025 3:89ouCrrynx54.92 kgNov2024 3:55pmHeart Rate57 /psy40-181NlrlhuhjJuly 02, 2025 3:55pmRespiratory rate16 /min 12-24July 02, 2025 3:55pmOxygen saturation by Pulse kjuprmlx639 %95-100 July 02, 2025 3:55pmBP Eoffjyzh096 mm[Hg]100-140July 02, 2025 3:55pm BP Xlyduuizx24 mm[Hg]60-100July 02, 2025 3:55pmBMI (Body Mass Index)28.0 kg/s9XzaocewlJuly 02, 2025 3:55pm Advance Directives Advance Directive Response Recorded Date/ Time Advance Directives No July 5:07pm Insurance Providers Guarantor Isabel Rivera Address [address] [facility] [address]Ttfljpe Info.Home Phone: Payer Group Member ID Coverage Type Subscriber Relationship to Subscriber Effective Date Expiration Date [employer] [id number] R Holzhauer Id: [id number] [address] Home Phone: [facility] Id: [id number] R Holzhauer Id: [id number] [id number] Home Phone: Encounters Encounter Location(s) Arrival/Admit Date Discharge/Departure Date Discharge/Departure Disposition Provider(s) Departed Physician/ Provider Office Visit -[facility] April 09, 2025 4:08pm April 09, 2025 4:39pm Discharged to home care or self care (routine discharge) Maeve Moreno MD Departed Referred -[facility] June 23, 2025 1:00pm June 23, 2025 1:01pm Discharged to home care or self care (routine discharge) Tin Garza Departed Physician/ Provider Office Visit -[facility] July 02, 2025 3:52pm July 02, 2025 4:20pm Discharged to home care or self care (routine discharge) Maeve Moreno MD Recent Diagnosis Onset Date Admit Date Abdominal pain Unknown April 09 4:08pm ADPKD (autosomal dominant po lycystic kidney disease) Unknown April 09, 2025 4:08pm CKD (chronic kidney disease) stage 4, GFR 15-29 ml/min Unknown April 09, 2025 4:08pm Factor V Leiden Unknown April 09 4:08pm Hypertensive chronic kidney disease with stage 1 through stage 4 chronic ki Unknown April 09, 2025 4:08pm Abdominal pain Unknown July 02, 2 025 3:52pm ADPKD (autosomal dominant po lycystic kidney disease) Unknown July 02, 2025 3:52pm CKD (chronic kidney disease) stage 4, GFR 15-29 ml/min Unknown July 02, 2025 3:52pm Dysuria Unknown July 02, 2 025 3:52pm Factor V Leiden Unknown July 02, 2 025 3:52pm Hypertensive chronic kidney disease with stage 1 through stage 4 chronic ki Unknown July 02, 2025 3:52p m Assessments Diagnosis Onset Date Resolution Status Admit Date Abdominal pain acuteAugust 2024 4:08pmADPKD (autosomal dominant polycystic kidney disease)acuteAugust 2024 4:08pmCKD (chronic kidney disease) stage 4, GFR 15-29 ml/minacuteAugust 2024 4:08pmFactor V LeidenacuteAugust 2024 4:08pmHypertensive chronic kidney disease with stage 1 through stage 4 chronic kiacuteAugust 2024 4:08pmAbdominal painacuteNovember 2024 3:52pm ADPKD (autosomal dominant polycystic kidney disease)acuteNovember 2024 3:52pmCKD (chronic kidney disease) stage 4, GFR 15-29 ml/minacuteNovember 2024 3:52pmDysuriaacuteNovember 2024 3:52pmFactor V LeidenacuteNovember 2024 3:52pmHypertensive chronic kidney disease with stage 1 through stage 4 chronic kiacuteNovember 2024 3:52pm Plan of Treatment Author Maeve Moreno [facility] 2024 3:58pmShe was started Jynarque 45 &30 mg daily on October 13, 2020 that titrated up to max dose 90 & 30 mg daily however the dose was decreased back as she was not able to tolerate it because of increased thirst and dehydration. liver function panel was monitored monthly and she has normal AST and ALT. creatinine has increased from 1.3 mg/dL and 2020 up to 1.8 mg/dL immediately after starting Jynarque but has been stable around 2 to 2.5 mg/dL after that. Patient has a very large cyst on the CT scan of the abdomen with very aggressive polycystic kidney disease and decline of renal function is expected however Jynarque is supposed to slow the decline of renal function. She completed monitoring LFTs monthly for total 18 months and now being monitoring every 3- month started June 2022 per manufacture recommendation. She was informed that they may need ELECTRONICS INSPECTOR in near future. I did offer the patient a referral to kidney transplant center to start evaluation and be on the list as she has no donor however she would like to postpone total next visit. This visit, GFR is up to 29 mL/min, we are going to wait until GFR below 20 mL/min before referral. Renal function stable. Creatinine 2.66 mg/dL on higher dose Jynarque is 60 mg in the morning and 50 mg in the afternoon. She has normal potassium. GFR 20 to 25 mL/min Labs on April 04, 2025 was reviewed and she has normal LFTs. Monitor renal panel every 3 months and adjust medications as indicated. Currently she has normal hemoglobin with no RADHA. She has normal calcium, phosphorus and intact PTH. Continue low-salt diet. She has no proteinuria. Patient used to be on lisinopril however probably will not tolerated because of drop of blood pressure and increased serum creatinine. Renal function has been quite variable since she was started on Jynarque. Currently creatinine up to 3.03 to mg/dL possibly in the setting of dehydration, it has been variable between 1.6 to 2 mg/dL over the last year according to volume status and state of hydration. GFR is variable between 20 to 29 mL/min. Since patient has no donor. Information about kidney transplant has been discussed with the patient. She is familiar with the transplant since her brother and her father had transplants. Will refer for transplant once GFR drops below 20 mL/min. Blood pressure at 110-120 systolic Continue low-salt diet She will not tolerate SAURABH inhibitor. Patient has been on Xarelto for factor V. Leiden mutation. She has no recent blood clots. She has no bleeding events or hematuria. Patient described abdominal discomfort mainly in the left lower quadrant. She has no hematuria. She was treated with antibiotics by Dr. Maulik James for concern about diverticulitis. Patient was informed that since she large kidneys with large cystic kidney disease, states sometimes rupture and cause pain. Will obtain CT scan of the abdomen if needed however the patient currently feels comfortable. Will check urinalysis for hematuria. Author Maeve Moreno [facility] BeachwoodAuthoredNovember 2024 4:14pmShe was started Jynarque 45 &30 mg daily on October 13, 2020 that titrated up to max dose 90 & 30 mg daily however the dose was decreased back as she was not able to tolerate it because of increased thirst and dehydration. liver function panel was monitored monthly and she has normal AST and ALT. creatinine has increased from 1.3 mg/dL and 2020 up to 1.8 mg/dL immediately after starting Jynarque but has been stable around 2 to 2.5 mg/dL after that. Patient has a very large cyst on the CT scan of the abdomen with very aggressive polycystic kidney disease and decline of renal function is expected however Jynarque is supposed to slow the decline of renal function. She completed monitoring LFTs monthly for total 18 months and now being monitoring every 3- month started June 2022 per manufacture recommendation. She was informed that they may need ELECTRONICS INSPECTOR in near future. I did offer the patient a referral to kidney transplant center to start evaluation and be on the list as she has no donor however she would like to postpone total next visit. This visit, GFR is up to 29 mL/min, we are going to wait until GFR below 20 mL/min before referral. Renal function stable. Creatinine 2.66 mg/dL on higher dose Jynarque is 60 mg in the morning and 30 mg in the afternoon. She has normal potassium. GFR 20 to 25 mL/min Labs on April 04, 2025 was reviewed and she has normal LFTs. Monitor renal panel every 3 months and adjust medications as indicated. Currently she has normal hemoglobin with no RADHA. She has normal calcium, phosphorus and intact PTH. Continue low-salt diet. She has no proteinuria. Patient used to be on lisinopril however probably will not tolerated because of drop of blood pressure and increased serum creatinine. Blood work for June 23, 2025 was reviewed: Creatinine 2.5, BUN 33, CO2 26.2, chloride 107, potassium 4 mmol/L, sodium 141. She has normal AST and ALT 13 and 19 units/L respectively. Alkaline phos 31 units/L. Albumin 4 g/dL. Hemoglobin stable at 13.2 g/dL, Phosphorus 3.5. iPTH 109. Urine showed mild proteinuria and hematuria. Renal function has been quite variable since she was started on Jynarque. Currently creatinine up to 3.03 to mg/dL possibly in the setting of dehydration, it has been variable between 1.6 to 2 mg/dL over the last year according to volume status and state of hydration. GFR is variable between 20 to 29 mL/min. Since patient has no donor. Information about kidney transplant has been discussed with the patient. She is familiar with the transplant since her brother and her father had transplants. Will refer for transplant once GFR drops below 20 mL/min. Blood pressure at 110-120 systolic Continue low-salt diet She will not tolerate SAURABH inhibitor. Patient has been on Xarelto for factor V. Leiden mutation. She has no recent blood clots. She has no bleeding events or hematuria. Patient described abdominal discomfort mainly in the left lower quadrant. She has no hematuria. She was treated with antibiotics by Dr. Maulik James for concern about diverticulitis. Patient was informed that since she large kidneys with large cystic kidney disease, states sometimes rupture and cause pain. Will obtain CT scan of the abdomen if needed however the patient currently feels comfortable. Will check urinalysis for hematuria. Future Tests Future scheduled test information is unavailable Pending Tests Test Name Ordered Date Scheduled Date Phospholipase A2 Recept Ab IgG April 09, 2025 3:35pm 3 Months Comprehensive Metabolic Panel April 09, 2025 3:35pm 3 Months Comprehensive Metabolic Panel July 02 4:14pm 3 Months Future Visits Future appointment information is unavailable Future Procedures Procedure Name Ordered Date Scheduled Date Hemogram CBC Without Diff April 09, 2025 3:35 pm 3 Months Parathyroid Hormone Intact April 09, 2025 3:3 5pm 3 Months Urinalysis April 09, 2025 3:35pm 3 Month s Hemogram CBC Without Diff July 02, 2025 4: 14pm 3 Months Urine Culture July 02, 2025 4:16pm PhosphorusNov2024 4:14pm3 MonthsParathyroid Hormone IntactNov2024 4:14pm3 MonthsUrinalysisNov2024 4:16pm Future Medications Future medication information is unavailable Patient Instructions Patient instructions are unavailable
--- OUTSIDE RECORDS SUMMARY | 2025-07-03 08:02 | XMS_ITS | Clinical Summary ---
Author Organization [facility] Address [address] [facility] [facility] [place] [address] Care Team Providers Care Computer System Validation Specialist Name Role Phone Maulik James MD Primary Care Provider [phone] Allergies Active AllergyReactionsCriticalityNoted DateCommentsSulfa AntibioticsHives,Rash Low04/09/2025 Other Reaction(s): rash Sulfamethoxazole-TrimethoprimHives,XoncQcc3209/04/2019 Medications MedicationSigDispense QuantityRefillsLast FilledStart DateEnd DateStatus Xarelto [...] MG tablet therapy pack 5Active Encounters DateTypeDepartmentCare AheuBsprutqyfyh51/13/2025bstract [facility] [address] [address] [place] [address] Tin Garza DO 06/23/2025 1:30 PM ESTProcedure Visit [facility] [address] [place] [address] Tin Garza, Uterine leiomyoma, unspecified location; Menorrhagia with regular cycle; Request for ywnkromqlvwfw98/04/2025External Result Encounter [facility] Unsolicited Tin Garza DO 05/07/2025Telephone [facility] [place] [place] [address] Tin Garza DO 05/05/2025 1:40 PM EDTOffice Visit [facility] [address] [place] [address] [place] [address] Tin Garza, Pelvic pain in female; Uterine leiomyoma, unspecified xzcchpmu03/16/2025amboo flowsheet [facility] [address] [place] [address] [place] [address] Tin Garza, 04/16/2025bstract [facility] [address] [place] [address] [place] [address] Tin Garza, from Last 3 Months Social History Tobacco UseTypesPacks/DayYears UsedDateSmoking Tobacco: Never Assessed CommentsNoSex and Gender InformationValueDate RecordedSex Assigned at BirthNot on fileLegal KcsDmuabn38/15/2023 11:47 PM EDTGender IdentityNot on fileSexual OrientationNot on file Last Filed Vital Signs Vital SignReadingTime TakenCommentsBlood Qsobulrk262/80108/23/2024 1:49 PM EST Pulse--Temperature--Respiratory Rate--Oxygen Saturation--Inhaled Oxygen Concentration--Zmuqon84.4 kg (175 lb)06/23/2025 1:49 PM BDOCvdyuc504 cm (5' 3 ) 06/23/2025 1:49 PM ESTBody Mass Jknfa056906/23/2025 1:49 PM EST Plan of Treatment DateTypeDepartmentCare Team (Latest Contact Info)Jozvdszzbzt59/04/2025 8:00 AM ESTAncillary Procedure [facility] [address] [place] [address] [place] [address] 08/05/2025 2:40 PM ESTConsult [facility] [address] [place] [address] [place] [address] Tin Garza, DO [address] [place] [address] [place] [address] Health MaintenanceDue DateLast DoneCommentsPap Smear2002Cervical Cancer Addbhzufl23/10/2012HPV/Qikkae6511/28/20111341Kwoioavpw98/10/2022COVID-19 Vaccine ( season), 05/04/2021Influenza Vaccine (#1)2025 07/09/2017, 06/29/2016Pneumococcal Vaccine: Pediatrics (0 to 5 Years) and At- Risk Patients (6 to 64 Years)Aged OutNo longer eligible based on patient's age to complete this topic Procedures Procedure NamePriorityDate/TimeAssociated DiagnosisCommentsENDOMETRIAL BIOPSY Rrytdle0706/23/2025 2:09 PM EST Uterine leiomyoma, unspecified location Menorrhagia with regular cycle POCT , HHSGDAxlemtx97/04/2025 1:55 PM EST Menorrhagia with regular cycle PATHOLOGY REQUEST FOR LAB ILKEDpdxsjm79/04/2025 1:42 PM EST POCT , BRTTESascugt64/22/2025 4:02 PM EDT Pelvic pain Encounter for biopsy from Last 3 Months Results * Endometrial biopsy (06/23/2025 2:09 PM EST) Isabel Wagner LPN - 06/23/2025 2:09 PM EST Isabel Kincaid LPN 06/23/2025 2:19 PM Endometrial biopsy Date/Time: 06/23/2025 2:09 PM Performed by: Tin Garza, DO Authorized by: Tin Garza DO ?? [...] / Laterality Collection Method / VolumeCollection TimeReceived KscoVephy58/04/2025 1:55 PM EST Narrative Authorizing ProviderResult TypeResult StatusCoremandie Garza DOPOINT OF CARE TEST ENTER/EDIT ORDERABLESFinal Result * PATHOLOGY REQUEST FOR LAB CHAR (06/23/2025 1:42 PM EST)ComponentValueRef Range Test MethodAnalysis TimePerformed AtPathologist SignaturePATHOLOGY REQUEST FOR LAB CORP07/01/2025 2:33 PM [facility] CtrComment:See report. Scanned copy available in EMR.Specimen (Source)Anatomical Location / LateralityCollection Method / VolumeCollection TimeReceived TimeOther Topography unknown / Pzhvval6106/23/2025 1:42 PM EST06/24/2025 1:29 PM EST Narrative Authorizing ProviderResult TypeResult StatusCorey Greg DOLAB BLOOD ORDERABLES Final ResultPerforming OrganizationAddressCity/State/ZIP CodePhone Number [address] [place] [address], [facility] [address] [facility] [place] [address] from Last 3 Months Insurance [facility] Address[facility] [id number] [place] [phone] Care Teams Team MemberRelationshipSpecialtyStart Date Maulik James MD [address] [place] [phone] PCP - GeneralFamily Medicine05/05/25
--- OUTSIDE RECORDS SUMMARY | 2025-07-03 08:02 | XMS_ITS | Encounter Summary ---
Author Organization [facility] Address [address] [place] [address] Care Team Providers Care Insole Tack Puller Hand Name Role Phone Maulik James MD Primary Care Provider [phone] Encounter Details DateTypeDepartmentCare Team (Latest Contact Info)Zoryqiadpma65/04/2025External Result Encounter [facility] External Department Unsolicited Tin Garza, DO [address] [place], [place] [id number] Social History Tobacco UseTypesPacks/DayYears UsedDateSmoking Tobacco: Never Assessed CommentsNoSex and Gender InformationValueDate RecordedSex Assigned at BirthNot on fileLegal OjvOqoiiv33/15/2023 11:47 PM EDTGender IdentityNot on fileSexual OrientationNot on filedocumented as of this encounter Plan of Treatment DateTypeDepartmentCare Team (Latest Contact Info)Gxmyvrgsiit79/04/2025 8:00 AM ESTAncillary Procedure NOMIsabel OVIEDO [address] [place] [address] [place] [phone] 08/05/2025 2:40 PM ESTConsult NOMIsabel OVIEDO [address] [facility] [place] [address] Tin Garza DO [address] [place], [place] [address] documented as of this encounter Procedures Procedure NamePriorityDate/TimeAssociated DiagnosisCommentsPATHOLOGY REQUEST FOR LAB YATGLkckfms49/04/2025 1:42 PM EST documented in this encounter Results * PATHOLOGY REQUEST FOR LAB CHAR (06/23/2025 1:42 PM EST)ComponentValueRef Range Test MethodAnalysis TimePerformed AtPathologist SignaturePATHOLOGY REQUEST FOR LAB CORP07/01/2025 2:33 PM [facility] CtrComment:See report. Scanned copy available in EMR.Specimen (Source)Anatomical Location / LateralityCollection Method / VolumeCollection TimeReceived TimeOther Topography unknown / Qubeiaw6306/23/2025 1:42 PM EST06/24/2025 1:29 PM EST Narrative Authorizing ProviderResult TypeResult StatusCorey Greg DOLAB BLOOD ORDERABLES Final ResultPerforming OrganizationAddressCity/State/ZIP CodePhone Number [facility] [address] [place] [address], [facility] [address] [place] [address] documented in this encounter Visit Diagnoses Not on filedocumented in this encounter Care Teams Team MemberRelationshipSpecialtyStart DateEnd Date Maulik James MD [address] [place] [address] PCP - GeneralFamily Medicine05/05/25documented as of this encounter
--- OUTSIDE RECORDS SUMMARY | 2025-07-03 08:02 | XMS_ITS | Encounter Summary ---
Author Organization [facility] Address [address] [place] [address] Care Team Providers Care Clinic Licensed Practical Nurse Name Role Phone Maulik James MD Primary Care Provider [phone] Encounter Details DateTypeDepartmentCare Team (Latest Contact Info)Rcskjtgxsxg69/13/2025bstract LILA OVIEDO [address] [place] [address] [place] [address] Tin Garza DO [address] [facility] [address] [place], [facility] Social History Tobacco UseTypesPacks/DayYears UsedDateSmoking Tobacco: Never Assessed CommentsNoSex and Gender InformationValueDate RecordedSex Assigned at BirthNot on fileLegal WrsPzgzlz17/15/2023 11:47 PM EDTGender IdentityNot on fileSexual OrientationNot on filedocumented as of this encounter Plan of Treatment DateTypeDepartmentCare Team (Latest Contact Info)Qeyiquhdspw82/04/2025 8:00 AM ESTAncillary Procedure LILA OVIEDO [address] [place] [address] [place] [phone] 08/05/2025 2:40 PM ESTConsult LILA OVIEDO [address] [place] [address] [place] [address] Tin Garza DO [address] [place], [place] [phone] documented as of this encounter Visit Diagnoses Not on filedocumented in this encounter Care Teams Team MemberRelationshipSpecialtyStart DateEnd Date Maulik James MD [address] [place] [address] PCP - GeneralFamily Medicine05/05/25documented as of this encounter
--- OUTSIDE RECORDS SUMMARY | 2025-07-03 08:02 | XMS_ITS | Clinical Summary ---
Author Organization [facility] Address [address] [place], [place] [address] Care Team Providers Care Table Saw Operator Name Role Phone Maulik James MD Primary Care Provider [phone] Timothy Mills Unavailable [phone] Allergies Active AllergyReactionsCriticalityNoted DateComments Sulfamethoxazole-TrimethoprimRash,Hives09/04/2019 Medications [...] drink = 0.6 oz pure alcohol)SociallyPHQ-2AnswerDate RecordedPHQ-2 Miolo436CommentsNo Sex and Gender InformationValueDate RecordedSex Assigned at BirthNot on file Legal IidNjpndb60/25/2019 8:12 AM EDTGender IdentityNot on fileSexual OrientationNot on file Last Filed Vital Signs Vital SignReadingTime TakenCommentsBlood Cdoejprr527/66009/04/2019 3:57 PM EST Ndleq483609/04/2019 3:57 PM LMLSafjxnfwxnw85.4 ??C (97.6 ??F)09/04/2019 3:57 PM ESTRespiratory Toql037209/04/2019 3:57 PM ESTOxygen Gecpyesywa295%09/04/2019 3:57 PM ESTInhaled Oxygen Concentration--Brhbwk12.2 kg (181 lb 3.2 oz)09/04/2019 3:57 PM ONZPphewa082.6 cm (5' 5.98 )09/04/2019 3:57 PM ESTBody Mass Index29.26 09/04/2019 3:57 PM EST Plan of Treatment Health MaintenanceDue DateLast DoneCommentsAnxiety Jnoxhkcds68/10/2000Depression Browjvion98/10/2000HIV Lmisvpvfa25/10/2000Hepatitis C Zicmgowgf37/10/2000 DTaP,Tdap,Td Vaccine (1 - Tdap)2000Hepatitis B Vaccine (1 of 3 - 19+ 3- dose series)2000Cervical Cancer Xtzoxeqbd55/10/2003HPV Vaccine (1 - 3-dose SCDM series)2008Mammogram Hbdnldjfe42/10/2022Covid-19 Vaccine ( - season)2025Influenza Vaccine (#1)2025 Insurance * Guarantor: Aroldo Brock TypeRelation to PatientDate of BirthPhone Billing AddressPersonal/GzxvydNrqd59/10/1981 [address] [place] [address] Care Teams Team MemberRelationshipSpecialtyStart DateEnd Maulik James MD PCP - GeneralFamily Egqlbodx07/25/[address] Timothy Mills [address] [place] [address] [place] [address] OyptrdpmrNstmdfozil52/25/19
--- OUTSIDE RECORDS SUMMARY | 2025-07-03 08:02 | XMS_ITS | Patient Health Record ---
Author Organization [facility] [place] Address [address] [place] [address] Care Team Providers Care Dredge Mate Name Role Phone Jovon Ortiz Primary Care Provider [phone] Allergies Allergen (clinical drug ingredient) Drug/Non Drug Allergy documented on EMR Reaction Allergy Type Onset Date Status Substance with sulfonamide s tructure and antibacterial mechanism of action (substance) Sulfa Antibiotics hives Drug Allergy Active Results Component Value Reference Range Notes PTH, Intact Reviewed date:04/05/2025 01:20:20 PM Interpretation: Performing Lab: Notes/Report: [facility] , PTH, Intact 112 15-65 pg/mL Lining Presser: Zen Perez PhD, Phone: [phone] [address] [place], [place] [phone] Performed at: CB - [facility] Tiff Performing Lab: see note LC - [facility] LBUS pelvis w/ transvaginal Reviewed date:04/16/2025 12:41:12 PM Interpretation: Performing Lab: Notes/Report: Source Facility: [place] [address] [place] [address] Ultrasound Report Signed Patient: BRYON BROCK MR#: [id number] : 1980 Acct:[id number] Age/Sex: 44 / F ADM Date: 04/16/25 Loc: US Attending Dr: Maren Ortiz M.D. Ordering Physician: Maren Ortiz M.D. Date of Service: 04/16/25 Procedure(s): US pelvis w/ transvaginal Accession Number(s): [id number] cc: Maren Ortiz M.D. [place] [id number] Patient Name: BRYON BROCK MRN: [id number] date: 1980 Sex: F Assigned Patient Location: US Current Patient Location: US Accession/Order Number: [id number] Exam Date: 04/16/2025 08:25 Report Date: 04/16/2025 [...] Frausto M.D. 04/16/2025 10:40 AM Dictation Location: [place] [address] Electronically authenticated by: [id number] Y Date: 04/16/2025 10:40 Dictated By: Bryon Frausto M.D. Signed By: 04/16/25 1042 DD/ 1040 TD/TT: Bsa/Aml Compliance Officer:TACOS AGUILAR Reviewed date:06/23/2025 03:30:28 PM Interpretation: Performing Lab: Notes/Report: [facility] ,Color UrineYELLOWYELLOWClarity UrineCLEARCLEARSpecific [place] Urine<=1.005 1.005-1.025pH Urine6.05.0-9.0Protein UrineNEGATIVENEG/TRACE mg/dLGlucose Urine UANEGATIVENEGATIVE mg/dLBilirubin UrineNEGATIVENEGATIVEKetones UrineNEGATIVE NEGATIVE mg/dLBlood UrineLARGENEGATIVENitrite UrineNEGATIVENEGATIVEUrobilinogen Urine0.20.2-1.0 EU/dLLeukocyte Esterase UrineSMALLNEGATIVEPerforming Lab:see note - [facility] LBCBC no Diff (Hemogram) Reviewed date:06/23/2025 03:30:28 PM Interpretation: Performing Lab: Notes/Report: [facility] ,White Blood Count7.94.0-11.0 10 3/uLRed Blood Count4.604.20-5.40 10 6/uL Wzrqxfdtex76.212.0-16.0 g/aSDnnmnmnlnt62.736.0-48.0 %Mean Corpuscular Jxzqgr04.7 81.0-99.0 fLMean Corpuscular Thywbrixos63.726.7-34.0 pgMean Corpuscular HGB Conc 31.729.9-35.2 g/dLRed Cell Distribution Width13.211.0-15.0 %Platelet Iumlo732 150-450 10 3/uLMean Platelet Kujgrv27.09.5-13.5 fLPerforming Lab:see note - [facility] LBPROF 14(COMP METB) Reviewed date:06/23/2025 07:29:04 PM Interpretation: Performing Lab: Notes/Report: [facility] ,Wxsxez641762-816 mmol/LPotassium4.03.5-5.1 mmol/VLcwcgnbo24986-357 mmol/LCarbon Wmcqjcb63.221.0-32.0 mmol/LAnion Gap11.2Obnofpu0111-345 mg/dLBlood Urea Nitrogen 33.07.0-18.0 mg/dLCreatinine2.500.55-1.02 mg/dLEstimated GFR ( Jopktqt65 >=60 mL/min/1.73m 2Estimated GFR (Non- Ame21>=60 mL/min/1.73m 2BUN Creatinine Ratio13.9Cqgvmck5.08.5-10.1 mg/dLBilirubin Total0.40.2-1.0 mg/dL Aspartate Amino Cesrpcdktve4405-69 U/LAlanine Hywxruntxgydtmsj4682-61 U/L Alkaline Kumuylqhwxk7959-486 U/LTotal Protein7.16.4-8.2 g/dLAlbumin Level4.03.4- 5.0 g/dLGlobulin3.1Albumin Globulin Ratio1.3Performing Lab:see noteML - [facility] LBLAB TESTING Reviewed date:06/25/2025 02:09:14 PM Interpretation: Performing Lab: Notes/Report: [id number] Phospholipase A2 Receptor Autoantibodies, IgG [facility] ,Miscellaneous TestCOMMENT. [address] [place] [phone] Performed at: CB - [facility] Negative <14.0 Reference Range: 0.0-19.9 Lining Presser: Zen Perez PhD, Phone: [phone] Lining Presser: Rosa Wu MD, Phone: [phone] Test Ordered: [id number] Anti-PLA2R Borderline 14.0 - 19.9 Performed at: [facility] Positive >19.9 Anti-PLA2R <1.8 RU/mL [address] [phone] Performing Lab[facility] LBPROF 14(COMP METB) Reviewed date:06/19/2025 01:03:42 PM Interpretation: Performing Lab: Notes/Report: [facility] ,Nipjip907768-525 mmol/LPotassium5.03.5-5.1 mmol/BAfwhyinb00972-423 mmol/LCarbon Xfcmnin99.121.0-32.0 mmol/LAnion Gap16.7Nivpfem7484-182 mg/dLBlood Urea Nitrogen 28.07.0-18.0 mg/dLCreatinine2.670.55-1.02 mg/dLEstimated GFR ( Yipdlgn47 >=60 mL/min/1.73m 2Estimated GFR (Non- Ame19>=60 mL/min/1.73m 2BUN Creatinine Ratio10.2Xtyvfkc0.18.5-10.1 mg/dLBilirubin Total0.40.2-1.0 mg/dL Aspartate Amino Hofwrrhvdbd4927-15 U/LAlanine Seiphwsflxfkfdmv6462-93 U/L Alkaline Fjeedxjfxqe4532-811 U/LTotal Protein7.36.4-8.2 g/dLAlbumin Level4.23.4- 5.0 g/dLGlobulin3.1Albumin Globulin Ratio1.4Performing Lab:see note - [facility] LBCBC no Diff (Hemogram) Reviewed date:04/04/2025 04:49:24 PM Interpretation: Performing Lab: Notes/Report: [facility] ,White Blood Count13.64.0-11.0 10 3/uLRed Blood Count4.584.20-5.40 10 6/uL Lrslejbcox09.412.0-16.0 g/kAKpmpeklcnq51.236.0-48.0 %Mean Corpuscular Frgftj89.0 81.0-99.0 fLMean Corpuscular Idhqjzbzml61.326.7-34.0 pgMean Corpuscular HGB Conc 32.529.9-35.2 g/dLRed Cell Distribution Width13.211.0-15.0 %Platelet Rnwio943 150-450 10 3/uLMean Platelet Bthgmp45.19.5-13.5 fLPerforming Lab:see note - [facility] LBPROF 14(COMP METB) Reviewed date:04/04/2025 04:49:24 PM Interpretation: Performing Lab: Notes/Report: [facility] ,Aogurr612752-773 mmol/LPotassium4.63.5-5.1 mmol/OFccffqsl24839-527 mmol/LCarbon Lsmjuvt10.021.0-32.0 mmol/LAnion Gap15.7Pktirze41339-466 mg/dLBlood Urea Igljmibg13.07.0-18.0 mg/dLCreatinine2.660.55-1.02 mg/dLEstimated GFR ( Mdpnvng03>=60 mL/min/1.73m 2Estimated GFR (Non- Ame20>=60 mL/min/1.73m 2 BUN Creatinine Ratio12.3Wnnpnbi3.08.5-10.1 mg/dLBilirubin Total0.80.2-1.0 mg/dL Aspartate Amino Cxfanhfbjrk6270-52 U/LAlanine Ltqwweiwocoyoxno3290-44 U/L Alkaline Iqbomirpqsd4024-324 U/LTotal Protein7.66.4-8.2 g/dLAlbumin Level3.73.4- 5.0 g/dLGlobulin3.9Albumin Globulin Ratio0.9Performing Lab:see note - [facility] LBPHOSPHORUS Reviewed date:04/04/2025 04:49:24 PM Interpretation: Performing Lab: Notes/Report: [facility] ,Phosphorus3.52.6-4.7 mg/dLPerforming Lab:see note - [facility] LB PTH, Intact Reviewed date:01/07/2025 05:49:00 PM Interpretation: Performing Lab: Notes/Report: [facility] ,PTH, Jjhjmd4049-42 pg/mL Lining Presser: Zen Perez PhD, Phone: [phone] [address] [place] [phone] Performed at: [facility] Performing Lab:see note - [facility] LBPTH, Intact Reviewed date:09/25/2024 12:50:08 PM Interpretation: Performing Lab: Notes/Report: [facility] ,PTH, Obupmh91979-63 pg/mL Lining Presser: Zen Perez PhD, Phone: [phone] Performed at: [address] [id number] Performing Lab:see vu - [facility] LBCBC no Diff (Hemogram) Reviewed date:09/24/2024 05:05:08 PM Interpretation: Performing Lab: Notes/Report: [facility] ,White Blood Count8.04.0-11.0 10 3/uLRed Blood Count4.644.20-5.40 10 6/uL Itdqgtlfhj45.412.0-16.0 g/lFBwxonyzcek31.836.0-48.0 %Mean Corpuscular Qsxibc57.1 81.0-99.0 fLMean Corpuscular Dblgttknmn36.926.7-34.0 pgMean Corpuscular HGB Conc 32.129.9-35.2 g/dLRed Cell Distribution Width13.211.0-15.0 %Platelet Uocvd932 150-450 10 3/uLMean Platelet Dzzksv11.19.5-13.5 fLPerforming Lab:see note - [facility] LBPROF 14(COMP METB) Reviewed date:09/24/2024 05:05:08 PM Interpretation: Performing Lab: Notes/Report: [facility] ,Ykkqrv326319-794 mmol/LPotassium3.73.5-5.1 mmol/UQinejozd39782-959 mmol/LCarbon Zzsuonu21.721.0-32.0 mmol/LAnion Gap15.8Bymfury0246-547 mg/dLBlood Urea Nitrogen 30.07.0-18.0 mg/dLCreatinine3.030.55-1.02 mg/dLEstimated GFR ( Uzinsih65 >=60 mL/min/1.73m 2Estimated GFR (Non- Ame17>=60 mL/min/1.73m 2BUN Creatinine Ratio9.3Ijtzwkx2.88.5-10.1 mg/dLBilirubin Total0.30.2-1.0 mg/dL Aspartate Amino Cqngbhewdtq0476-10 U/LAlanine Nwgockrgjsofkfgq8201-54 U/L Alkaline Tascznrxfqn2840-558 U/LTotal Protein7.76.4-8.2 g/dLAlbumin Level4.03.4- 5.0 g/dLGlobulin3.7Albumin Globulin Ratio1.1Performing Lab:see noteML - [facility] LBPHOSPHORUS Reviewed date:09/24/2024 05:05:08 PM Interpretation: Performing Lab: Notes/Report: [facility] ,Phosphorus3.82.6-4.7 mg/dLPerforming Lab:see noteML - [facility] LB PTH, Intact Reviewed date:07/06/2024 01:52:52 PM Interpretation: Performing Lab: Notes/Report: [facility] ,PTH, Pszwrh5264-66 pg/mL Performed at: [facility] Lining Presser: Zen Perez PhD, Phone: [phone] [address] [place], [place] [phone] Performing Lab:see note - [facility] LBPROF 14(COMP METB) Reviewed date:07/04/2024 06:30:20 AM Interpretation: Performing Lab: Notes/Report: [facility] ,Gimsgd530005-933 mmol/LPotassium4.53.5-5.1 mmol/SSnywwykd08112-835 mmol/LCarbon Iewkpce61.421.0-32.0 mmol/LAnion Gap17.6Gusyjdy2870-517 mg/dLBlood Urea Nitrogen 38.07.0-18.0 mg/dLCreatinine2.360.55-1.02 mg/dLEstimated GFR ( Cybbowy54 >=60 mL/min/1.73m 2Estimated GFR (Non- Ame23>=60 mL/min/1.73m 2BUN Creatinine Ratio16.4Bjrntoj7.08.5-10.1 mg/dLBilirubin Total0.30.2-1.0 mg/dL Aspartate Amino Imajjmbfrkj4903-18 U/LAlanine Bzutownkfcyabedk0481-44 U/L Alkaline Ikgarovgyql2976-015 U/LTotal Protein7.36.4-8.2 g/dLAlbumin Level4.03.4- 5.0 g/dLGlobulin3.3Albumin Globulin Ratio1.2Performing Lab:see note - [facility] LBPHOSPHORUS Reviewed date:07/04/2024 06:30:20 AM Interpretation: Performing Lab: Notes/Report: [facility] ,Phosphorus4.62.6-4.7 mg/dLPerforming Lab:[facility] P[facility], Intact Reviewed date:06/24/2025 04:51:07 PM Interpretation: Performing Lab: Notes/Report: [facility] ,PTH, Fqmjul99475-86 pg/mL Lining Presser: Zen Perez PhD, Phone: [phone] Performed at: CB - [facility] [address] [id number] Performing Lab:see noteLC - [facility] LBCBC no Diff (Hemogram) Reviewed date:01/06/2025 08:17:47 PM Interpretation: Performing Lab: Notes/Report: [facility] ,White Blood Count10.74.0-11.0 10 3/uLRed Blood Count4.494.20-5.40 10 6/uL Tlgzxhxbqq24.212.0-16.0 g/fLNsxtkriays57.336.0-48.0 %Mean Corpuscular Deyxft99.8 81.0-99.0 fLMean Corpuscular Swltkvnldw98.426.7-34.0 pgMean Corpuscular HGB Conc 32.829.9-35.2 g/dLRed Cell Distribution Width13.511.0-15.0 %Platelet Crwpj467 150-450 10 3/uLMean Platelet Apmrym49.79.5-13.5 fLPerforming Lab:see noteML - [facility] LBPROF 14(COMP METB) Reviewed date:01/06/2025 08:17:47 PM Interpretation: Performing Lab: Notes/Report: [facility] ,Yceshm933180-979 mmol/LPotassium3.73.5-5.1 mmol/JRttlxbhs36863-708 mmol/LCarbon Pspewdd17.221.0-32.0 mmol/LAnion Gap15.5Nugfjht6403-480 mg/dLBlood Urea Nitrogen 32.07.0-18.0 mg/dLCreatinine2.220.55-1.02 mg/dLEstimated GFR ( Etngwxq69 >=60 mL/min/1.73m 2Estimated GFR (Non- Ame24>=60 mL/min/1.73m 2BUN Creatinine Ratio14.4Rfvmziq3.18.5-10.1 mg/dLBilirubin Total0.30.2-1.0 mg/dL Aspartate Amino Ojjtdseqxvv1174-38 U/LAlanine Iluxnbnpgncukvsm4071-01 U/L Alkaline Lhlwovkdoag1437-019 U/LTotal Protein7.36.4-8.2 g/dLAlbumin Level4.03.4- 5.0 g/dLGlobulin3.3Albumin Globulin Ratio1.2Performing Lab:see noteML - [facility] LBPHOSPHORUS Reviewed date:01/06/2025 08:17:47 PM Interpretation: Performing Lab: Notes/Report: [facility] ,Phosphorus4.92.6-4.7 mg/dLPerforming Lab:see noteML - [facility] LB PROF CHEM 8 (BAS METB) Reviewed date:10/13/2024 08:13:35 PM Interpretation: Performing Lab: Notes/Report: [facility] ,Iycywl658958-580 mmol/LPotassium4.03.5-5.1 mmol/LYbwrzfwo08645-007 mmol/LCarbon Ayksrov60.521.0-32.0 mmol/LAnion Gap12.3Ikpvrht68851-487 mg/dLBlood Urea Lxcylgfb35.07.0-18.0 mg/dLCreatinine2.520.55-1.02 mg/dLEstimated GFR ( Lnusjzz34>=60 mL/min/1.73m 2Estimated GFR (Non- Ame21>=60 mL/min/1.73m 2 BUN Creatinine Ratio11.8Otimcbp6.18.5-10.1 mg/dLPerforming Lab:see noteML - [facility] LB Reason For Referral No Information [...] containing alcohol in the past year?Weekly (3 points)Fnqwxp4Ngmkvblkrlughx PositiveAUDIT-C (Standard) Question Answer Notes Did you [...] Problem Chronic peripheral v enous hypertension (disorder) (593302802) Chronic venous hypertension (idiopathic) without complications of unspecified lower extremity (I87.309) ActiveconfirmedProblemFactor V Leiden mutation (758191125)Factor V Leiden mutation (D68.51)ActiveconfirmedProblemPain in left leg (424134033)Left leg pain (M79.605)ActiveconfirmedProblemCellulitis (886728756)Cellulitis (L03.90)Active confirmedProblemPolycystic kidney disease (41209610)Polycystic kidney disease (Q61.3)ActiveconfirmedProblemAcute urinary tract infection (341245420)Acute UTI (N39.0)ActiveconfirmedProblemLeft lower quadrant pain (022456696)Left lower quadrant abdominal pain (R10.32)Activeconfirmed Vital Signs Blood pressure diastolic 80 mm Hg 04/06/2025 Ywkmgh85 in04/06/2025lood pressure ocabyplt061 mm Hg04/06/20250389Lkdwfd415.4 lbs 04/06/2025BMI29.44 kg/m204/06/2025 Encounters Encounter Location Date Provider Diagnosis [facility] [address] [place] [address] 08/04/2024 Jovon Hoy Acute UTI N39.0 [facility] [address] [place] [address] 04/06/2025 Jovon Hoy Left lower quadrant abdominal pain R10.32 [facility] [address] [place] [address] 04/04/2025 Jovon Hoy [facility] [place] [address] 04/16/2025Doug Hoy Assessments Encounter Date Diagnosis (ICD [...] Insured Coverage Start Date Coverage End Date [facility] [address] [place] [address] [id number] Alfa Brock Spouse - patient is the spouse of the insured Medications Administered Medication Instructions Date of Administration Dosage Notes Ceftriaxone 1 gram g1 gram Medical (General) History Medical History History ICD Code Factor V Leiden mutation D68.51 Near syncope R55 Polycystic kidney disease Q61.3 DVT (deep venous thrombosis) I82.409 Surgical History Surgery Date(Month/Year) VC INJ foam sclerosant WUS ADJUNCT [employer] 07/12
[2025-07-03 08:59] LABS: Glucose Urine UA NEGATIVE (NEGATIVE)
== END 2025-07-03 07:59 | disposition home or self-care (01) ==
LOC: LAB 07:59
PROVIDERS: PCP Family Medicine; Visit Provider Internal Medicine Nephrology
DX: R30.0 Dysuria (principal); Q61.3 Polycystic kidney, unspecified
CPT/HCPCS: 81003; 87086; 87088

== ENCOUNTER 2025-08-10 13:20 | Outpatient (OUT) | payer OTHER, SELFPAY ==
--- OUTSIDE RECORDS SUMMARY | 2025-08-05 14:40 | XMS_ITS | Encounter Summary ---
Author Organization [facility] Address [address] [place] [address] Care Team Providers Care Cane Cutter Name Role Phone Maulik James MD Primary Care Provider [phone] Reason for Visit * ReasonCommentsPre-op Visit Encounter Details DateTypeDepartmentCare Team (Latest Contact Info)Fktgwlavvgr16/17/2025 2:40 PM ESTConsult [facility] [address] [place] [address] Tin Garza DO [address] [place], [place] [id number] Pre-op examination; Menorrhagia with regular cycle; Abnormal uterine bleeding; Pelvic pain in female; Request for sterilization Social History Tobacco UseTypesPacks/DayYears UsedDateSmoking Tobacco: Never Assessed CommentsNoSex and Gender InformationValueDate RecordedSex Assigned at BirthNot on fileLegal LdbRccbhz38/15/2023 11:47 PM EDTGender IdentityNot on fileSexual OrientationNot on filedocumented as of this encounter Last Filed Vital Signs Vital SignReadingTime TakenCommentsBlood Juqgvgdf786/6408/05/2025 3:06 PM EST Pulse--Temperature--Respiratory Rate--Oxygen Saturation--Inhaled Oxygen Concentration--Roobkn85.2 kg (170 lb 1.9 oz)08/05/2025 3:06 PM ESTHeight--Body Mass Index30.14108/23/2024 1:49 PM ESTdocumented in this encounter Progress Notes * Yulisa Montgomery - 08/05/2025 2:40 PM EST Reason for Appointment: Patient ID: Isabel Rivera is a 44 y.o. female who presents for Pre-op Visit Patient presents today for Pre Op appointment. Patient is scheduled to undergo Da Violette assisted Bilateral Laparoscopic Salpingectomy and Endometrial Ablation with Jocelynn on 09/04/[address] Branch [facility]. MEDICATIONS Current Outpatient Medications Medication Instructions cetirizine [...] nursing note reviewed. Exam conducted with a video game creator present. Vitals: Estimated body mass index is 31 kg/m?? as calculated from the following: Height as of 06/23/25: 5' 3 . Weight as of 06/23/25: 175 lb. BP: No LMP recorded. ASSESSMENT & PLAN ICD-10-CM 1. Pre-op examination Z01.818 2. Menorrhagia with regular cycle N92.0 3. Abnormal uterine bleeding N93.9 4. Pelvic pain in female R10.20 5. Request for sterilization Z30.2 Assessment/Plan Pre Op: Patient is doing well but has desire for sterilization and has complaints of bleeding and pelvic pain. Patient has tried hormone therapy in the past but all attempts to subside patients issues of bleeding have failed. I have discussed conservative management vs. surgical management with the patientin detail and patient desires surgical management at this time. Patient has voiced understanding that a Bilateral Salpingectomy is considered to be permanent and patient will undergo Da Violette assisted Bilateral Laparoscopic Salpingectomy & Endometrial Ablation with Jocelynn on 09/04/2025. Surgical consents were signed, mmc was reviewed, and patient is to proceed to [facility] OR. Follow Up: Patient is to follow up between 1-2 weeks post op to assess proper healing and recovery from procedure. Documented by Isabel Kincaid LPN on behalf of: Tin Garza DO documented in this encounter Plan of Treatment DateTypeDepartmentCare Team (Latest Contact Info)Appfjdxmemk73/29/2026 8:30 AM ESTOffice Visit [facility] [address] [place] [phone] Padmaja Gloria PA [address] [place] [address] documented as of this encounter Visit Diagnoses Diagnosis Pre-op examination Menorrhagia with regular cycle Abnormal uterine bleeding Unspecified disorder of menstruation and other abnormal bleeding from female genital tract Pelvic pain in female Unspecified symptom associated with female genital organs Request for sterilization documented in this encounter Care Teams Team MemberRelationshipSpecialtyStart DateEnd Date Maulik James MD [address] [place] [phone] PCP - GeneralFamily Medicine05/05/25documented as of this encounter
--- OUTSIDE RECORDS SUMMARY | 2025-08-10 13:25 | XMS_ITS | Clinical Summary ---
Author Organization [facility] Address [address] [place], [place] [id number] Care Team Providers Care Literature Professor Name Role Phone Maulik James MD Primary Care Provider [phone] Timothy Mills Unavailable [phone] Allergies Active AllergyReactionsCriticalityNoted DateComments Sulfamethoxazole-TrimethoprimRash,Hives09/04/2019 Medications [...] drink = 0.6 oz pure alcohol)SociallyPHQ-2AnswerDate RecordedPHQ-2 Fmvlg026CommentsNo Sex and Gender InformationValueDate RecordedSex Assigned at BirthNot on file Legal ZgwUsprhf99/25/2019 8:12 AM EDTGender IdentityNot on fileSexual OrientationNot on file Last Filed Vital Signs Vital SignReadingTime TakenCommentsBlood Srfurkpn517/6601 3:57 PM EST Yijez210509/04/2019 3:57 PM UYGHgqnbosnnnj90.4 ??C (97.6 ??F)09/04/2019 3:57 PM ESTRespiratory Mzks973009/04/2019 3:57 PM ESTOxygen Fjkvlastga157%09/04/2019 3:57 PM ESTInhaled Oxygen Concentration--Bfkfof31.2 kg (181 lb 3.2 oz)09/04/2019 3:57 PM DLGFjnjmm587.6 cm (5' 5.98 )09/04/2019 3:57 PM ESTBody Mass Index29.26 09/04/2019 3:57 PM EST Plan of Treatment Health MaintenanceDue DateLast DoneCommentsAnxiety Gwkxhyprp32/10/2000Depression Ahnlfbavr47/10/2000HIV Jdpsmtjeu87/10/2000Hepatitis C Boesshrad54/10/2000 DTaP,Tdap,Td Vaccine (1 - Tdap)2000Hepatitis B Vaccine (1 of 3 - 19+ 3- dose series)2000Cervical Cancer Ibwsabjcs77/10/2003HPV Vaccine (1 - 3-dose SCDM series)2008Mammogram Btkupeaaw43/10/2022Covid-19 Vaccine ( - season)2025Influenza Vaccine (#1)2025 Insurance * Guarantor: Aroldo Brock TypeRelation to PatientDate of BirthPhone Billing AddressPersonal/ZyfuhlUjoj77/10/1981 [address] [place] [address] Care Teams Team MemberRelationshipSpecialtyStart DateEnd Maulik James MD PCP - GeneralFamily Hdleohwm52/25/19 Timothy Mills [address] [place] [address] [place] [address] ZiaxaywacCcmyechltt37/25/19
--- OUTSIDE RECORDS SUMMARY | 2025-08-10 13:25 | XMS_ITS | Patient Health Record ---
Author Organization [facility] in [place] Address [address] [place] [address] Care Team Providers Care Seo Consultant Name Role Phone Jovon Ortiz Primary Care Provider Allergies Allergen (clinical drug ingredient) Drug/Non Drug Allergy documented on EMR Reaction Allergy Type Onset Date Status Substance with sulfonamide s tructure and antibacterial mechanism of action (substance) Sulfa Antibiotics hives Drug Allergy Active Results Component Value Reference Range Notes PHOSPHORUS Reviewed date:01/06/2025 08:17:47 PM Interpretation: Performing Lab: Notes/Report: [facility] , Phosphorus 4.9 2.6-4.7 mg/dL Performing Lab:see noteML - [facility] LBPROF 14(COMP METB) Reviewed date:01/06/2025 08:17:47 PM Interpretation: Performing Lab: Notes/Report: [facility] ,Qhmlol934618-409 mmol/LPotassium3.73.5-5.1 mmol/BJludxyac70833-672 mmol/LCarbon Vujsvkz37.221.0-32.0 mmol/LAnion Gap15.2Lexmiil7918-686 mg/dLBlood Urea Nitrogen 32.07.0-18.0 mg/dLCreatinine2.220.55-1.02 mg/dLEstimated GFR ( Kvniorz67 >=60 mL/min/1.73m 2Estimated GFR (Non- Ame24>=60 mL/min/1.73m 2BUN Creatinine Ratio14.5Swevqra3.18.5-10.1 mg/dLBilirubin Total0.30.2-1.0 mg/dL Aspartate Amino Ugyusdzoidp3186-95 U/LAlanine Kghhlhwcpeqyhzso5707-33 U/L Alkaline Nwnsivoqkgp4545-204 U/LTotal Protein7.36.4-8.2 g/dLAlbumin Level4.03.4- 5.0 g/dLGlobulin3.3Albumin Globulin Ratio1.2Performing Lab:see note - [facility] LBCBC no Diff (Hemogram) Reviewed date:01/06/2025 08:17:47 PM Interpretation: Performing Lab: Notes/Report: [facility] ,White Blood Count10.74.0-11.0 10 3/uLRed Blood Count4.494.20-5.40 10 6/uL Dohqinvfyd80.212.0-16.0 g/nNCmcmmcdxoi00.336.0-48.0 %Mean Corpuscular Dicqyd82.8 81.0-99.0 fLMean Corpuscular Lgmamfjpao09.426.7-34.0 pgMean Corpuscular HGB Conc 32.829.9-35.2 g/dLRed Cell Distribution Width13.511.0-15.0 %Platelet Qcqra005 150-450 10 3/uLMean Platelet Dirkcf90.79.5-13.5 fLPerforming Lab:see note - [facility] LBPTH, Intact Reviewed date:01/07/2025 05:49:00 PM Interpretation: Performing Lab: Notes/Report: [facility] ,PTH, Nvrrqp1716-13 pg/mL Tipping Machine Operator: Zen Perez PhD, Phone: [phone] [address] [place], [place] [phone] Performed at: - [facility] [place] Performing Lab:see note - [facility] LBPHOSPHORUS Reviewed date:04/04/2025 04:49:24 PM Interpretation: Performing Lab: Notes/Report: [facility] ,Phosphorus3.52.6-4.7 mg/dLPerforming Lab:see noteC[facility] LB PROF 14(COMP METB) Reviewed date:04/04/2025 04:49:24 PM Interpretation: Performing Lab: Notes/Report: [facility] ,Zfbhqd872181-236 mmol/LPotassium4.63.5-5.1 mmol/KPlowtzns57902-352 mmol/LCarbon Yrmuvjn12.021.0-32.0 mmol/LAnion Gap15.6Bmxqeya77005-673 mg/dLBlood Urea Srueizzi16.07.0-18.0 mg/dLCreatinine2.660.55-1.02 mg/dLEstimated GFR ( Eblklry94>=60 mL/min/1.73m 2Estimated GFR (Non- Ame20>=60 mL/min/1.73m 2 BUN Creatinine Ratio12.3Dloznlz9.08.5-10.1 mg/dLBilirubin Total0.80.2-1.0 mg/dL Aspartate Amino Rfspcckiwpc5336-87 U/LAlanine Kzsclznonpemihlo0944-56 U/L Alkaline Lkmgozeeerh8180-269 U/LTotal Protein7.66.4-8.2 g/dLAlbumin Level3.73.4- 5.0 g/dLGlobulin3.9Albumin Globulin Ratio0.9Performing Lab:see noteML - [facility] LBCBC no Diff (Hemogram) Reviewed date:04/04/2025 04:49:24 PM Interpretation: Performing Lab: Notes/Report: [facility] ,White Blood Count13.64.0-11.0 10 3/uLRed Blood Count4.584.20-5.40 10 6/uL Crigxrofan11.412.0-16.0 g/qBIljguswrra60.236.0-48.0 %Mean Corpuscular Fucckz94.0 81.0-99.0 fLMean Corpuscular Ddexzmtbes35.326.7-34.0 pgMean Corpuscular HGB Conc 32.529.9-35.2 g/dLRed Cell Distribution Width13.211.0-15.0 %Platelet Tvvdu694 150-450 10 3/uLMean Platelet Jpjlak19.19.5-13.5 fLPerforming Lab:see note - [facility] LBPTH, Intact Reviewed date:04/05/2025 01:20:20 PM Interpretation: Performing Lab: Notes/Report: [facility] ,PTH, Mnocgm99124-98 pg/mL Tipping Machine Operator: Zen Perez PhD, Phone: [phone] [address] [place], [place] [phone] Performed at: [facility] Performing Lab:see note - [facility] LBUS pelvis w/ transvaginal Reviewed date:04/16/2025 12:41:12 PM Interpretation: Performing Lab: Notes/Report: Source Facility: [place] [address] Ultrasound Report Signed Patient: BRYON BROCK MR#: [id number] : 1980 Acct:[id number] Age/Sex: 44 / F ADM Date: 04/16/25 Loc: US Attending Dr: Maren Ortiz M.D. Ordering Physician: Maren Ortiz M.D. Date of Service: 04/16/25 Procedure(s): US pelvis w/ transvaginal Accession Number(s): [id number] cc: Maren Ortiz M.D. [place] [address] Patient Name: BRYON BROCK MRN: [id number] date: 1980 Sex: F Assigned Patient Location: Current Patient Location: US Accession/Order Number: [id number] Exam Date: 04/16/2025 08:25 Report Date: 04/16/2025 [...] Frausto M.D. 04/16/2025 10:40 AM Dictation Location: [place] [address] Electronically authenticated by: [id number] Y Date: 04/16/2025 10:40 Dictated By: Bryon Frausto M.D. Signed By: 04/16/25 1042 DD/ 1040 TD/TT: Wellness Program Administrator:PROF Giron(COMP METB) Reviewed date:06/19/2025 01:03:42 PM Interpretation: Performing Lab: Notes/Report: [facility] ,Bhtavi533089-909 mmol/LPotassium5.03.5-5.1 mmol/XWohorhxt11533-404 mmol/LCarbon Eghcolj69.121.0-32.0 mmol/LAnion Gap16.5Lopmbph6295-215 mg/dLBlood Urea Nitrogen 28.07.0-18.0 mg/dLCreatinine2.670.55-1.02 mg/dLEstimated GFR ( Psmzrmi18 >=60 mL/min/1.73m 2Estimated GFR (Non- Ame19>=60 mL/min/1.73m 2BUN Creatinine Ratio10.8Gnkbhhf2.18.5-10.1 mg/dLBilirubin Total0.40.2-1.0 mg/dL Aspartate Amino Bkdvdmijlaj3086-59 U/LAlanine Sunhdwwznqtnvmwx8529-89 U/L Alkaline Afivtxwewmw8778-347 U/LTotal Protein7.36.4-8.2 g/dLAlbumin Level4.23.4- 5.0 g/dLGlobulin3.1Albumin Globulin Ratio1.4Performing Lab:see noteML - [facility] LBLAB TESTING Reviewed date:06/25/2025 02:09:14 PM Interpretation: Performing Lab: Notes/Report: [id number] Phospholipase A2 Receptor Autoantibodies, IgG [facility] ,Miscellaneous TestCOMMENT. [address] [place] [phone] Performed at: CB - [facility] [place] Negative <14.0 Reference Range: 0.0-19.9 Tipping Machine Operator: Zen Perez PhD, Phone: [phone] Tipping Machine Operator: Rosa Wu MD, Phone: [phone] Test Ordered: [id number] Anti-PLA2R Borderline 14.0 - 19.9 Performed at: BN - [facility] [place] Positive >19.9 Anti-PLA2R <1.8 RU/mL [address] [phone] Performing Lab:see noteLC - [facility] LBPROF 14(COMP METB) Reviewed date:06/23/2025 07:29:04 PM Interpretation: Performing Lab: Notes/Report: [facility] ,Fewgwd449573-338 mmol/LPotassium4.03.5-5.1 mmol/XGsfjobwq86081-075 mmol/LCarbon Hehtins25.221.0-32.0 mmol/LAnion Gap11.2Xzuhfkp8072-140 mg/dLBlood Urea Nitrogen 33.07.0-18.0 mg/dLCreatinine2.500.55-1.02 mg/dLEstimated GFR ( Rcvdeiq54 >=60 mL/min/1.73m 2Estimated GFR (Non- Ame21>=60 mL/min/1.73m 2BUN Creatinine Ratio13.1Boauory8.08.5-10.1 mg/dLBilirubin Total0.40.2-1.0 mg/dL Aspartate Amino Slmxviljmic6337-45 U/LAlanine Diqejftoiaifnzll4010-77 U/L Alkaline Gyaewksfryt6374-504 U/LTotal Protein7.16.4-8.2 g/dLAlbumin Level4.03.4- 5.0 g/dLGlobulin3.1Albumin Globulin Ratio1.3Performing Lab:see note - [facility] LBCBC no Diff (Hemogram) Reviewed date:06/23/2025 03:30:28 PM Interpretation: Performing Lab: Notes/Report: [facility] ,White Blood Count7.94.0-11.0 10 3/uLRed Blood Count4.604.20-5.40 10 6/uL Jrusvcinet95.212.0-16.0 g/pPBukwgoabrb83.736.0-48.0 %Mean Corpuscular Uymhtr58.7 81.0-99.0 fLMean Corpuscular Onttahuqaq01.726.7-34.0 pgMean Corpuscular HGB Conc 31.729.9-35.2 g/dLRed Cell Distribution Width13.211.0-15.0 %Platelet Jqhzc206 150-450 10 3/uLMean Platelet Ejrlbn03.09.5-13.5 fLPerforming Lab:see note - [facility] LBPTH, Intact Reviewed date:06/24/2025 04:51:07 PM Interpretation: Performing Lab: Notes/Report: [facility] ,PTH, Zwswyt65001-62 pg/mL Tipping Machine Operator: Zen Perez PhD, Phone: [phone] Performed at: [facility] Lab[address] [phone] Performing Lab:see note - [facility] LBUrine Culture - [facility] Reviewed date:07/06/2025 01:53:23 PM Interpretation: Performing Lab: Notes/Report: [facility] ,Urine Culture - FRMCSee Below For Report Urine Culture - [facility] SEEFR [facility] RESULT^[facility] RESULT Urine Culture - FRMCSEEA SEE SCANNED REPORT, ABNORMAL^SEE SCANNED REPORT, ABNORMAL Urine Culture - [facility] SEEFR [facility] RESULT^[facility] RESULT Performing Lab:[facility] LBUA RANDOM Reviewed date:07/04/2025 01:14:01 PM Interpretation: Performing Lab: Notes/Report: [facility] ,Color UrineLT. YELLOWYELLOWClarity UrineCLEARCLEARSpecific [place] Urine<=1.005 1.005-1.025pH Urine5.05.0-9.0Protein UrineNEGATIVENEG/TRACE mg/dLGlucose Urine UANEGATIVENEGATIVE mg/dLBilirubin UrineNEGATIVENEGATIVEKetones UrineNEGATIVE NEGATIVE mg/dLBlood UrineNEGATIVENEGATIVENitrite UrineNEGATIVENEGATIVE Urobilinogen Urine0.20.2-1.0 EU/dLLeukocyte Esterase UrineNEGATIVENEGATIVE Performing Lab:see noteML - [facility] LBUA RANDOM Reviewed date:06/23/2025 03:30:28 PM Interpretation: Performing Lab: Notes/Report: [facility] ,Color UrineYELLOWYELLOWClarity UrineCLEARCLEARSpecific [place] Urine<=1.005 1.005-1.025pH Urine6.05.0-9.0Protein UrineNEGATIVENEG/TRACE mg/dLGlucose Urine UANEGATIVENEGATIVE mg/dLBilirubin UrineNEGATIVENEGATIVEKetones UrineNEGATIVE NEGATIVE mg/dLBlood UrineLARGENEGATIVENitrite UrineNEGATIVENEGATIVEUrobilinogen Urine0.20.2-1.0 EU/dLLeukocyte Esterase UrineSMALLNEGATIVEPerforming Lab:see note - [facility] LBPROF CHEM 8 (BAS METB) Reviewed date:10/13/2024 08:13:35 PM Interpretation: Performing Lab: Notes/Report: [facility] ,Yaqvwl607817-243 mmol/LPotassium4.03.5-5.1 mmol/JMlrkyqca06640-378 mmol/LCarbon Evidcbu99.521.0-32.0 mmol/LAnion Gap12.8Whumbdu69160-079 mg/dLBlood Urea Ifcaivdp65.07.0-18.0 mg/dLCreatinine2.520.55-1.02 mg/dLEstimated GFR ( Dnofvlv39>=60 mL/min/1.73m 2Estimated GFR (Non- Ame21>=60 mL/min/1.73m 2 BUN Creatinine Ratio11.2Tnwuxev9.18.5-10.1 mg/dLPerforming Lab:see note - [facility] LBPTH, Intact Reviewed date:09/25/2024 12:50:08 PM Interpretation: Performing Lab: Notes/Report: [facility] ,PTH, Mgtobq83515-86 pg/mL Tipping Machine Operator: Zen Perez PhD, Phone: [phone] Performed at: [facility] Lab[address] [phone] Performing Lab:see noteLC - [facility] LBCBC no Diff (Hemogram) Reviewed date:09/24/2024 05:05:08 PM Interpretation: Performing Lab: Notes/Report: [facility] ,White Blood Count8.04.0-11.0 10 3/uLRed Blood Count4.644.20-5.40 10 6/uL Lxfihfzchb00.412.0-16.0 g/tSYbrfwebmrj80.836.0-48.0 %Mean Corpuscular Sqmdtv01.1 81.0-99.0 fLMean Corpuscular Epegijxjvu08.926.7-34.0 pgMean Corpuscular HGB Conc 32.129.9-35.2 g/dLRed Cell Distribution Width13.211.0-15.0 %Platelet Qcoao865 150-450 10 3/uLMean Platelet Kpdjid63.19.5-13.5 fLPerforming Lab:see noteML - [facility] LBPROF 14(COMP METB) Reviewed date:09/24/2024 05:05:08 PM Interpretation: Performing Lab: Notes/Report: [facility] ,Sumjxk426873-327 mmol/LPotassium3.73.5-5.1 mmol/TTmfxbhyd96737-226 mmol/LCarbon Gvjngvr83.721.0-32.0 mmol/LAnion Gap15.9Vhvwfne6964-604 mg/dLBlood Urea Nitrogen 30.07.0-18.0 mg/dLCreatinine3.030.55-1.02 mg/dLEstimated GFR ( Knwlvsg98 >=60 mL/min/1.73m 2Estimated GFR (Non- Ame17>=60 mL/min/1.73m 2BUN Creatinine Ratio9.7Ycubrhy7.88.5-10.1 mg/dLBilirubin Total0.30.2-1.0 mg/dL Aspartate Amino Yzoepeoecym4457-06 U/LAlanine Gfwtwtopgbcwwmla4078-81 U/L Alkaline Xmubjvkcakc3769-768 U/LTotal Protein7.76.4-8.2 g/dLAlbumin Level4.03.4- 5.0 g/dLGlobulin3.7Albumin Globulin Ratio1.1Performing Lab:see noteML - [facility] LBPHOSPHORUS Reviewed date:09/24/2024 05:05:08 PM Interpretation: Performing Lab: Notes/Report: [facility] ,Phosphorus3.82.6-4.7 mg/dLPerforming Lab:see noteML - [facility] LB Reason For Referral No Information [...] containing alcohol in the past year?Weekly (3 points)Sfqova5Qqghwcsmqdyigz PositiveAUDIT-C (Standard) Question Answer Notes Did you [...] Problem Chronic peripheral v enous hypertension (disorder) (090213483) Chronic venous hypertension (idiopathic) without complications of unspecified lower extremity (I87.309) ActiveconfirmedProblemFactor V Leiden mutation (320171679)Factor V Leiden mutation (D68.51)ActiveconfirmedProblemPain in left leg (858356498)Left leg pain (M79.605)ActiveconfirmedProblemCellulitis (595353429)Cellulitis (L03.90)Active confirmedProblemPolycystic kidney disease (82310734)Polycystic kidney disease (Q61.3)ActiveconfirmedProblemAcute urinary tract infection (887075855)Acute UTI (N39.0)ActiveconfirmedProblemLeft lower quadrant pain (660825081)Left lower quadrant abdominal pain (R10.32)Activeconfirmed Vital Signs Blood pressure diastolic 80 mm Hg 04/06/2025 Dsjsiv48 in04/06/2025lood pressure uiaxbdhv909 mm Hg04/06/20258021Ewkisj454.4 lbs 04/06/2025BMI29.44 kg/m204/06/2025 Encounters Encounter Location Date Provider Diagnosis [facility] [address] [place] [address] 04/04/2025 Jovon Ortiz [facility] [place] [address] 04/16/2025[facility] [place] [address]/18/2025Doug yLe lower quadrant abdominal pain R10.32 Assessments Encounter Date Diagnosis (ICD Code) Assessment Notes Treatment Notes Treatment Clinical Notes Section Notes 04/06/2025 Left lower quadrant abdominal pa in (ICD-10 - R10.32) Plan Of Treatment Pending Test Test Name Order Date CMP (COMPLETE METABOLIC PANEL) HEMOGLOBIN A1C (GLYCO) 01/18/2024 IRON, TOTAL 01/18/2024 LIPID PANEL (CHOL/TRIG/HDL/LDL) 01/18/20 24 CBC WITH DIFF (EXP 06/2025) 01/18/2024 US Lower Extremity LT 02/09/2023 STOOL OCCULT BLOOD 01/18/2024 US PELVIS AND TRANSVAG 04/06/2025 THYROID PANEL (T4/TSH/FREE T3) 4 Insurance Providers Payer Name Payer Address Payer Phone Subscriber Number Group Number Insured Name Patient Relationship to Insured Coverage Start Date Coverage End Date [employer] [facility] [address] [place] [address] [id number] Alfa Brock Spouse - patient is the spouse of the insured Medications Administered Medication Instructions Date of Administration Dosage Notes Ceftriaxone 1 gram g1 gram Medical (General) History Medical History History ICD Code Factor V Leiden mutation D68.51 Near syncope R55 Polycystic kidney disease Q61.3 DVT (deep venous thrombosis) I82.409 Surgical History Surgery Date(Month/Year) VC INJ foam sclerosant 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
--- OUTSIDE RECORDS SUMMARY | 2025-08-10 13:25 | XMS_ITS | Encounter Summary ---
Author Organization [facility] Address [address] [place] [address] Care Team Providers Care Credit Coordinator Name Role Phone Maulik James MD Primary Care Provider [phone] Encounter Details DateTypeDepartmentCare Team (Latest Contact Info)Mpsrkflsdtk79/17/2025amboo flowsheet [facility] OVIEDO [address] [place] [address] Tin Garza DO [address] [place] [address] Social History Tobacco UseTypesPacks/DayYears UsedDateSmoking Tobacco: Never Assessed CommentsNoSex and Gender InformationValueDate RecordedSex Assigned at BirthNot on fileLegal AsgMvswhy51/15/2023 11:47 PM EDTGender IdentityNot on fileSexual OrientationNot on filedocumented as of this encounter Plan of Treatment DateTypeDepartmentCare Team (Latest Contact Info)Kltacvugjar16/29/2026 8:30 AM ESTOffice Visit LILA OVIEDO [address] [place] [address] Padmaja Gloria PA [address] [place] [address] documented as of this encounter Visit Diagnoses Not on filedocumented in this encounter Care Teams Team MemberRelationshipSpecialtyStart DateEnd Maulik James MD [address] [place] [address] PCP - GeneralFawyradha Medicine05/05/25documented as of this encounter
--- OUTSIDE RECORDS SUMMARY | 2025-08-10 13:25 | XMS_ITS | Clinical Summary ---
Author Organization [facility] Address [address] [place] [address] Care Team Providers Care Patient Attendant Name Role Phone Maulik James MD Primary Care Provider [phone] Allergies Active AllergyReactionsCriticalityNoted DateCommentsSulfa AntibioticsHives,Rash Low04/09/2025 Other Reaction(s): rash Sulfamethoxazole-TrimethoprimHives,CpbbQcv5909/04/2019 Medications MedicationSigDispense QuantityRefillsLast FilledStart DateEnd DateStatus Xarelto [...] MG tablet therapy pack 5Active Encounters DateTypeDepartmentCare RnylVplzfllggap05/17/2025 2:40 [place] [address] Tin Garza DO Pre-op examination; Menorrhagia with regular cycle; Abnormal uterine bleeding; Pelvic pain in female; Request for wnirijbitnqja06/17/2025[place] [address] Tin Garza DO 07/23/2025 8:00 AM [place] [address] Pelvic pain in female; Uterine leiomyoma, unspecified cthsmatj46/18/2025Orders Only [facility] [address] [place] [address] [place] [address] Joelle Bermeo MA 07/02/2025bstract [facility] [address] [place] [address] [place] [address] Tin Garza DO 06/23/2025 1:30 PM ESTProcedure Visit [facility] [address] [place] [address] [place] [address] Tin Garza DO Uterine leiomyoma, unspecified location; Menorrhagia with regular cycle; Request for iirzebbgifbpw71/04/2025External Result Encounter [facility] External Department Unsolicited Tin Garza DO from Last 3 Months Social History Tobacco UseTypesPacks/DayYears UsedDateSmoking Tobacco: Never Assessed CommentsNoSex and Gender InformationValueDate RecordedSex Assigned at BirthNot on fileLegal BzjQvabkt58/15/2023 11:47 PM EDTGender IdentityNot on fileSexual OrientationNot on file Last Filed Vital Signs Vital SignReadingTime TakenCommentsBlood Tmvhhmkj097/6408/05/2025 3:06 PM EST Pulse--Temperature--Respiratory Rate--Oxygen Saturation--Inhaled Oxygen Concentration--Tqnrvj98.2 kg (170 lb 1.9 oz)08/05/2025 3:06 PM KKAIujnxw020 cm (5' 3 )06/23/2025 1:49 PM ESTBody Mass Index30.14108/23/2024 1:49 PM EST Plan of Treatment DateTypeDepartmentCare Team (Latest Contact Info)Xbhrairvllx96/29/2026 8:30 AM ESTOffice Visit NOMIsabel OVIEDO [address] [place] [address] [place] [address] Padmaja Gloria PA [address] [place] [address] [place] [address] Health MaintenanceDue DateLast DoneCommentsPap Smear2002Cervical Cancer Dfjjtejtg90/10/2012HPV/Ylezkx0911/28/20114462Tezxkyvcp15/10/2022COVID-19 Vaccine ( season), 05/04/2021Influenza Vaccine (#1)2025 07/09/2017, 06/29/2016Pneumococcal Vaccine: Pediatrics (0 to 5 Years) and At- Risk Patients (6 to 64 Years)Aged OutNo longer eligible based on patient's age to complete this topic Procedures Procedure NamePriorityDate/TimeAssociated DiagnosisCommentsUS PELVIC COMPLETE W/ REDbdnfuk23/04/2025 8:35 AM EST Pelvic pain in female Uterine leiomyoma, unspecified location ENDOMETRIAL BIOPSY, ZDLWWQAPGbyvvyr62/05/2025 12:00 AM ESTENDOMETRIAL BIOPSY Caedxaa2406/23/2025 2:09 PM EST Uterine leiomyoma, unspecified location Menorrhagia with regular cycle POCT , IVHTGDayszvr52/04/2025 1:55 PM EST Menorrhagia with regular cycle PATHOLOGY REQUEST FOR LAB LRNLQufrsov17/04/2025 1:42 PM EST POCT , TEANRYwksytb10/22/2025 4:02 PM EDT Pelvic pain Encounter for biopsy from Last 3 Months Results * US Pelvis w/ TV (07/23/2025 8:35 AM EST)Anatomical RegionLateralityModality PelvisUltrasoundSpecimen (Source)Anatomical Location / LateralityCollection Method / VolumeCollection TimeReceived Time07/23/2025 12:17 PM EST Impressions 07/23/2025 12:33 PM EST 1. Uterine findings consistent with intramural fibroid left of midline body/fundus 2. Ovarian follicles, small left ovarian cyst TRANSCRIBED BY: ? ELECTRONICALLY SIGNED BY: Yonny Stapleton MD Narrative 07/23/2025 12:33 PM EST FINDINGS: Uterus ?9.8 x 4.3 x 7.4 cm Endometrium ? 5 mm Right ovary ?2.4 x 1.5 x 2.4 cm Left ovary ?3.1 x 2.0 x 2.4 cm Mild anteversion/anteflexion of the fundus. Heterogeneous 5.0 x 4.0 x 4.5 cm area left of midline within the fundus, probable intramural fibroid. Normal endometrium Bilateral ovarian several mm follicles. Left ovarian 2 x 2 cm benign cyst. Procedure Note Yonny Stapleton MD - 07/23/2025 FINDINGS: Uterus 9.8 x 4.3 x 7.4 cm Endometrium 5 mm Right ovary 2.4 x 1.5 x 2.4 cm Left ovary 3.1 x 2.0 x 2.4 cm Mild anteversion/anteflexion of the fundus. Heterogeneous 5.0 x 4.0 x 4.5cm area left of midline within the fundus, probable intramural fibroid.Normal endometrium Bilateral ovarian several mm follicles. Left ovarian 2 x 2 cm benigncyst. IMPRESSION: 1. Uterine findings consistent with intramural fibroid left of midline body/fundus 2. Ovarian follicles, small left ovarian cyst TRANSCRIBED BY: ELECTRONICALLY SIGNED BY: Yonny Stapleton MD Authorizing ProviderResult TypeResult Narcisa Garza [facility] PROCEDURESFinal Result * ENDOMETRIAL BIOPSY, EXTERNAL (06/24/2025 12:00 AM EST) Narrative Authorizing ProviderResult TypeResult StatusTin Graza DOLAB CYTOLOGY ORDERABLESFinal ResultPerforming OrganizationAddressCity/State/ZIP CodePhone Number EXTERNAL LAB * Endometrial biopsy (06/23/2025 2:09 PM EST) Narrative Isabel Kincaid LPN - 06/23/2025 2:09 PM EST Isabel Kincaid LPN 06/23/2025 2:19 PM Endometrial biopsy Date/Time: 06/23/2025 2:09 PM Performed by: Tin Garza DO Authorized by: Tin Greg, DO ?? Consent: ??Consent obtained: written ??Consent [...] / Laterality Collection Method / VolumeCollection TimeReceived WlgaWzqin48/04/2025 1:55 PM EST Narrative Authorizing ProviderResult TypeResult StatusTin Garza DOPOINT OF CARE TEST ENTER/EDIT ORDERABLESFinal Result * PATHOLOGY REQUEST FOR LAB CHAR (06/23/2025 1:42 PM EST)ComponentValueRef Range Test MethodAnalysis TimePerformed AtPathologist SignaturePATHOLOGY REQUEST FOR LAB CORP07/01/2025 2:33 PM [facility] CtrComment:See report. Scanned copy available in EMR.Specimen (Source)Anatomical Location / LateralityCollection Method / VolumeCollection TimeReceived TimeOther Topography unknown / Lhalzxj7106/23/2025 1:42 PM EST06/24/2025 1:29 PM EST Narrative Authorizing ProviderResult TypeResult StatusCorey Greg DOLAB BLOOD ORDERABLES Final ResultPerforming OrganizationAddressCity/State/ZIP CodePhone Number [facility] [address] [place] [address], [facility] [address] [place] [address] from Last 3 Months Insurance [facility] Address: [facility] [id number] [place] [phone] Care Teams Team MemberRelationshipSpecialtyStart DateEnd Date Maulik James MD [address] [place] [address] PCP - GeneralFamily Medicine05/05/25
[2025-08-10 14:16] LABS: Hematocrit 39.4 % (36.0-48.0); Hemoglobin 12.6 g/dL (12.0-16.0); Immature Granulocytes Abs Auto 0.01 10^3/uL (0.00-0.03); Immature Granulocytes Pct Auto 0.1 % (0.0-0.5); Lymphocytes Absolute Auto 3.0 10^3/uL (1.2-3.8); Mean Corpuscular HGB Conc 32.0 g/dL (29.9-35.2); Mean Corpuscular Hemoglobin 28.4 pg (26.7-34.0); Mean Corpuscular Volume 88.9 fL (81.0-99.0); Platelet Count 114 10^3/uL (150-450); Red Blood Count 4.43 10^6/uL (4.20-5.40); White Blood Count 7.7 10^3/uL (4.0-11.0)
[2025-08-10 14:28] LABS: Anion Gap 14.2; Blood Urea Nitrogen 24.0 mg/dL (7.0-18.0); Calcium 8.8 mg/dL (8.5-10.1); Carbon Dioxide 24.1 mmol/L (21.0-32.0); Chloride 110 mmol/L (98-107); Estimated GFR (African America 24 (>=60 mL/min/1.73m^2); Estimated GFR (Non-African Ame 20 (>=60 mL/min/1.73m^2); Glucose 90 mg/dL (74-106); Potassium 4.3 mmol/L (3.5-5.1); Sodium 144 mmol/L (136-145)
[2025-08-10 14:36] LABS: Partial Thromboplastin Time 30.2 sec (22.3-36.2)
[2025-08-10 14:47] LABS: INR 1.15; Prothrombin Time 12.0 sec (9.0-11.6)
== END 2025-08-10 13:21 | disposition home or self-care (01) ==
LOC: PST 13:22
PROVIDERS: PCP Family Medicine; Visit Provider Obstetrics & Gynecology
DX: Z01.812 Encounter for preprocedural laboratory examination (principal); N92.0 Excessive and frequent menstruation with regular cycle; N93.9 Abnormal uterine and vaginal bleeding, unspecified; R10.20 Pelvic and perineal pain unspecified side
CPT/HCPCS: 36415; 80048; 85025; 85610; 85730